=== PATIENT | female | born 1985 | race Caucasian/White ===

== ENCOUNTER → 2017-05-02 16:53 | Outpatient (CLI) | payer OTHER, SELFPAY ==
[2017-05-02 17:34] LABS: hCG Titer Quant., Serum < 1 mIU/mL (<9 non-preg)
== END ==
PROVIDERS: Family Provider Family Medicine; PCP Family Medicine; Visit Provider Family Medicine
DX: N91.2 Amenorrhea, unspecified (principal)
CPT/HCPCS: 36415; 84702

== ENCOUNTER → 2017-06-10 17:12 | Outpatient (CLI) | payer OTHER, SELFPAY ==
[2017-06-10 18:28] LABS: hCG Titer Quant., Serum < 1 mIU/mL (<9 non-preg)
[2017-06-10 18:32] LABS: Free T3 2.8 pg/mL (2.18-3.98); T4 Free Direct 0.72 ng/dL (0.76-1.46); Thyroid Stim Hormone (TSH) 1.93 uIU/mL (0.358-3.74)
[2017-06-12 15:12] LABS: Thyroglobulin Antibody < 1.0 IU/mL (0.0-0.9); Thyroid Peroxidase AB 16 IU/mL (0-34)
[2017-06-13 14:14] LABS: HPV APTIMA, High Risk Negative (Negative)
== END ==
PROVIDERS: Visit Provider Obstetrics & Gynecology
DX: Z01.419 Encounter for gynecological examination (general) (routine) without abnormal findings (principal); N92.6 Irregular menstruation, unspecified; R63.5 Abnormal weight gain
CPT/HCPCS: 84439; 84443; 84481; 84702; 86376; 86800; 88175; G0145

== ENCOUNTER → 2017-06-21 13:43 | Outpatient (CLI) | payer OTHER, SELFPAY ==
[2017-06-21 14:27] LABS: ALB/GLOB Ratio 1.2 RATIO (0.9-2.4); AST(SGOT) 28 U/L (15-37); Alanine Aminotransfer ALT/SGPT 49 U/L (13-56); Albumin, Serum 4.2 g/dL (3.2-5.0); Alkaline Phosphatase 70 U/L (45-117); Anion Gap 7 (5-15); BUN 13 mg/dL (7-18); BUN/Creat Ratio 13.7 RATIO (10-20); Calcium,Total 8.6 mg/dL (8.5-10.1); Chloride 105 mmol/L (98-107); Creatinine, Serum 0.95 mg/dL (0.55-1.02); EST Glomerular Filtration Rate 72 mL/min (>60); Est Glom Filt Rate - Afr Amer 87 mL/min (>60); Estradiol 23.6 pg/mL; Follicle Stimulating Hormone 6.3 mIU/mL; Globulin 3.5 g/dL (2.2-4.2); Glucose 85 mg/dL (74-106); Potassium 3.7 mmol/L (3.5-5.1); Prolactin 11.6 ng/mL; Protein, Total 7.7 g/dL (6.4-8.2); Sodium Level 139 mmol/L (136-145); T4 Free Direct 0.81 ng/dL (0.76-1.46); Thyroid Stim Hormone (TSH) 2.52 uIU/mL (0.358-3.74)
[2017-06-22 08:09] LABS: DHEA Sulfate 106.6 ug/dL (84.8-378.0)
[2017-06-22 08:39] LABS: Sex Hormone-binding Globulin 34.8 nmol/L (24.6-122.0)
[2017-06-23 09:51] LABS: Insulin 31.5 mU/L (2.6-37.6)
[2017-06-25 14:35] LABS: 17-Hydroxyprogesterone 40 ng/dL (.)
[2017-06-26 10:31] LABS: Cholesterol 188 mg/dL (200); High Density Lipoprotein 35 mg/dL; Triglycerides 255 mg/dL; Very Low Density Lipoprotein 51 mg/dL (5-40)
[2017-06-27 10:40] LABS: Vitamin D,25 Hydroxy 45.8 ng/mL (29.95-100.01)
== END ==
PROVIDERS: Family Provider Family Medicine; PCP Family Medicine; Visit Provider Obstetrics & Gynecology
DX: N92.6 Irregular menstruation, unspecified (principal)
CPT/HCPCS: 36415; 80053; 80061; 82306; 82533; 82627; 82670; 83001; 83498; 83525; 84146; 84270; 84403; 84439; 84443; 82626

== ENCOUNTER → 2017-07-03 09:55 | Outpatient (CLI) | payer OTHER, SELFPAY ==
[2017-07-03 11:06] LABS: Free T3 3.2 pg/mL (2.18-3.98)
--- NOTE | 2017-07-03 18:21 | US_ITS ---
US Transvaginal Non-OB INDICATION: IRREG MENSES ABN LABS COMPARISON: None TECHNIQUE: Ultrasonographic grayscale, Doppler and duplex investigation of the pelvic structures by transabdominal and transvaginal approach. Doppler waveform analysis. FINDINGS: The uterus is anteverted and measures 8.8 x 4.1 x 3.1 cm. Endometrial stripe is homogeneous and measures 5 mm. Small amount of fluid is seen in the cervix. Ovaries are normal in size and demonstrate normal follicular anatomy and normal flow. Largest cyst or dominant follicle in the left ovary measures 1.5 cm. There is no evidence of free fluid. US/Pelvic (Non ) IMPRESSION: Small amount of fluid in the cervix. Otherwise unremarkable pelvic ultrasound. at 1853 Reported and signed by: Lucila Vanegas MD Electronically Signed: Lucila Vanegas MD at 17:52 EDT Tel , Service support ,
--- NOTE | 2017-07-03 18:32 | US_ITS ---
US Transvaginal Non-OB INDICATION: IRREG MENSES ABN LABS COMPARISON: None TECHNIQUE: Ultrasonographic grayscale, Doppler and duplex investigation of the pelvic structures by transabdominal and transvaginal approach. Doppler waveform analysis. FINDINGS: The uterus is anteverted and measures 8.8 x 4.1 x 3.1 cm. Endometrial stripe is homogeneous and measures 5 mm. Small amount of fluid is seen in the cervix. Ovaries are normal in size and demonstrate normal follicular anatomy and normal flow. Largest cyst or dominant follicle in the left ovary measures 1.5 cm. There is no evidence of free fluid. US/Transvaginal Non- IMPRESSION: Small amount of fluid in the cervix. Otherwise unremarkable pelvic ultrasound. at 1853 Reported and signed by: Lucila Vanegas MD Electronically Signed: Lucila Vanegas MD at 17:52 EDT Tel , Service support ,
[2017-07-06 08:11] LABS: Androstenedione 242 ng/dL (41-262)
== END ==
PROVIDERS: Family Provider Family Medicine; PCP Family Medicine; Visit Provider Obstetrics & Gynecology
DX: R63.5 Abnormal weight gain (principal); N92.5 Other specified irregular menstruation; Z31.89 Encounter for other procreative management; R53.82 Chronic fatigue, unspecified
CPT/HCPCS: 36415; 82024; 82157; 84481

== ENCOUNTER → 2017-07-09 08:18 | Outpatient (CLI) | payer OTHER, SELFPAY ==
[2017-07-15 11:47] LABS: Insulin Like Growth Factor 148 ng/mL (73-243)
== END ==
PROVIDERS: Family Provider Family Medicine; PCP Family Medicine; Visit Provider Obstetrics & Gynecology
DX: Z31.89 Encounter for other procreative management (principal); N92.5 Other specified irregular menstruation; R63.5 Abnormal weight gain
CPT/HCPCS: 36415; 84144; 84305

== ENCOUNTER → 2017-08-15 11:26 | Outpatient (CLI) | payer OTHER, SELFPAY | PROVIDERS: Visit Provider Obstetrics & Gynecology | DX: Z13.89 Encounter for screening for other disorder (principal); N92.5 Other specified irregular menstruation; R63.5 Abnormal weight gain | CPT/HCPCS: 36415; 84144 ==

== ENCOUNTER → 2017-08-18 13:22 | Outpatient (CLI) | payer OTHER, SELFPAY ==
[2017-08-18 13:53] LABS: hCG Titer Quant., Serum < 1 mIU/mL (<9 non-preg)
== END ==
PROVIDERS: Family Provider Family Medicine; PCP Family Medicine; Visit Provider Family Medicine
DX: N91.2 Amenorrhea, unspecified (principal)
CPT/HCPCS: 84702

== ENCOUNTER → 2017-08-22 08:18 | Outpatient (CLI) | payer OTHER, SELFPAY ==
[2017-08-22 08:51] LABS: hCG Titer Quant., Serum 10 mIU/mL (<9 non-preg)
== END ==
PROVIDERS: Family Provider Family Medicine; PCP Family Medicine; Visit Provider Family Medicine
DX: O26.91 Pregnancy related conditions, unspecified, first trimester (principal); Z3A.00 Weeks of gestation of pregnancy not specified
CPT/HCPCS: 84702

== ENCOUNTER → 2017-08-24 09:52 | Outpatient (CLI) | payer OTHER, SELFPAY ==
[2017-08-24 10:30] LABS: hCG Titer Quant., Serum 38 mIU/mL (<9 non-preg)
== END ==
PROVIDERS: Family Provider Family Medicine; PCP Family Medicine; Visit Provider Family Medicine
DX: O26.91 Pregnancy related conditions, unspecified, first trimester (principal); Z3A.00 Weeks of gestation of pregnancy not specified
CPT/HCPCS: 36415; 84702

== ENCOUNTER → 2017-09-09 16:50 | Outpatient (CLI) | payer OTHER, SELFPAY ==
[2017-09-10 14:30] LABS: Chlamydia Trachomatis by PCR Negative (Negative); Neisserai gonorrhoeae by PCR Negative (Negative); Probe Check PASS; Sample Adequacy Control PASS; Specimen Processing Control PASS
== END ==
PROVIDERS: Visit Provider Obstetrics & Gynecology
DX: Z11.3 Encounter for screening for infections with a predominantly sexual mode of transmission (principal); Z32.01 Encounter for pregnancy test, result positive
CPT/HCPCS: 87491; 87591

== ENCOUNTER → 2017-09-10 07:53 | Outpatient (CLI) | payer OTHER, SELFPAY ==
[2017-09-10 08:33] LABS: Absolute Lymphocyte Count 2.31 X10^3/ul (0.83-4.51); Absolute Neutrophil Count 5.6 X10^3/uL (2.0-7.7); Basophil# 0.02 X10^3/uL; Basophil% 0.2 % (0-1); Eosinophil# 0.12 X10^3/uL; Eosinophils% 1.4 % (0-5); Hematocrit 38.7 % (37-47); Hemoglobin 13.4 g/dl (12.0-15.0); Lymphocyte # 2.31 X10^3/ul (4.0); Lymphocyte % 26.9 % (19-41); Mean Corp Hgb Conc 34.6 g/gl (32-36); Mean Corpuscular Hgb 29.6 pg (27.0-32.0); Mean Corpuscular Volume 85.6 fL (81-99); Mean Platelet Vol. 10.4 fl (6.2-12.0); Monocyte# 0.54 X10^3/uL; Monocyte% 6.3 % (0-10); Neutrophil % 65.1 % (47-70); Platelet Count 230 K/mm3 (150-450); RBC Distribution Width CV 12.2 % (11.6-14.6); RBC Distribution Width SD 37.5 fl (35.1-43.9); Red Blood Count 4.52 M/mm3 (4.2-5.4); White Blood Count 8.6 K/mm3 (4.4-11.0)
[2017-09-10 08:34] LABS: POSITIVE COUNT NO; POSITIVE DIFFERENTIAL NO
[2017-09-10 08:35] LABS: POSITIVE MORPHOLOGY NO
[2017-09-10 08:51] LABS: Free T3 3.2 pg/mL (2.18-3.98); Glucose 97 mg/dL (74-106); T4 Free Direct 0.89 ng/dL (0.76-1.46)
[2017-09-10 09:54] LABS: Color, Urine Yellow (Yellow); Glucose, Dipstick Normal (Normal); Ketone-Dipstick Negative (Negative); Leukocyte Esterase-Dipstick 25 /ul (Negative); Nitrite-Dipstick Negative (Negative); Occult Blood-Urine Negative /ul (Negative); Protein-Dipstick Negative (Negative); Urine Bilirubin Dipstick Negative (Negative); Urine Clarity Sl. Cloudy (Clear); Urine Urobilinogen Normal (Normal); Urine pH 6.5 (5.0 - 8.0)
[2017-09-10 10:40] LABS: HIV - WCH Non-Reactive (Nonreactive); Rubella IgG 73.7 IU/mL
[2017-09-10 10:51] LABS: Amphetamine Urine VISTA NEGATIVE (<1000 ng/mL); Barbiturate Urine VISTA NEGATIVE (< 200 ng/mL); Benzodiazepine Urine VISTA NEGATIVE (< 200 ng/mL); Cocaine Urine VISTA NEGATIVE (< 300 ng/mL); Ecstacy Urine VISTA NEGATIVE (< 500 ng/mL); Methadone Urine VISTA NEGATIVE (< 300 ng/mL); PCP Urine VISTA NEGATIVE (< 25 ng/mL); THC Urine VISTA NEGATIVE (< 50 ng/mL); Vista UDS pH Range 7
[2017-09-12 03:47] LABS: Prenatal RPR NONREACTIVE (NONREACTIVE)
[2017-09-12 07:11] LABS: HEPATITIS B SURFACE AG Negative (Negative); Hep C Antibodies <0.1 s/co ratio (0.0-0.9)
== END ==
PROVIDERS: Family Provider Family Medicine; PCP Family Medicine; Visit Provider Obstetrics & Gynecology
DX: O99.280 Endocrine, nutritional and metabolic diseases complicating pregnancy, unspecified trimester (principal); E03.9 Hypothyroidism, unspecified; Z3A.00 Weeks of gestation of pregnancy not specified
CPT/HCPCS: 36415; 80307; 81002; 82947; 84439; 84443; 84481; 85025; 86703; 86762; 86803; 87340

== ENCOUNTER → 2017-09-13 12:01 | Outpatient (CLI) | payer OTHER, SELFPAY ==
--- NOTE | 2017-09-13 13:32 | US_ITS ---
STUDY: FIRST TRIMESTER OBSTETRICAL ULTRASOUND REASON FOR EXAM: Female, 31 years old. Determination of dates and viability LMP: 07/26/2017 TECHNIQUE: Transabdominal and transvaginal probes were used PRIOR ULTRASOUND: None. FINDINGS: The study shows a gravid uterus measuring 8.8 x 6.6 x 4.9 cm. It contains a gestational sac with good decidual reaction around it. Within the sac is a developing embryo with a heart rate of 12 6 bpm and a crown-rump length of 7.3 mm compatible with 6 weeks 5 days +/- 5 days gestational age and an expected date of delivery of 05/05/2018. Both ovaries are visualized and demonstrate normal Doppler flows through them. The right ovary measures 2.9 x 2.2 x 1.8 cm and the left 5.3 x 3.4 x 3.7 cm. There is a 3.1 cm corpus luteal cyst in the left. There is no free fluid in the cul-de-sac. .. US/Init OB < 14Wks US IMPRESSION: An early intrauterine at 6 weeks 5 days +/- 5 days with an estimated date delivery of 05/05/2018 Electronically Signed: Domenico Pacheco, at 10:51 EDT Tel , Service support ,
== END ==
PROVIDERS: Family Provider Family Medicine; PCP Family Medicine; Visit Provider Obstetrics & Gynecology
DX: Z34.81 Encounter for supervision of other normal pregnancy, first trimester (principal)
CPT/HCPCS: 76801

== ENCOUNTER 2017-09-27 13:36 | Emergency (ER) | payer OTHER, SELFPAY ==
[2017-09-27 13:37] VITALS: BP 148/84; PULSE 92; RESP 16; TEMP 36.3; O2SAT 97; BMI 35.5
[2017-09-27] MEDS: 0.9% Normal Saline 1,000 ML 1000 ML IV (15:18)
[2017-09-27] MEDS: Ondansetron 4 MG/2 ML Vial IV (15:18)
[2017-09-27 16:01] VITALS: BP 132/60
--- NOTE | 2017-09-27 16:15 | ED.VISSUMM ---
- ER Visit Summary Date of Service: 09/27/17 Chief Complaint: Nausea vomiting History of Present Illness: The patient is a 31 F who states that she is 9 weeks () and has been having morning sickness this . She states that yesterday and today she just does not feel right she feels that there is been more vomiting particular today. She notes no change in her chronic diarrhea. No fevers. Physical Examination: Afebrile vital signs are stable noted blood pressure 148/84 in triage this is come down in the department Gen: Well-nourished well-developed Head: Normocephalic atraumatic Eyes: Perrl EOMI ENT: TMs clear no rhinorrhea moist mucous membranes Neck: Supple no lymphadenopathy no JVD nontender CVS: Regular rate rhythm no murmurs normal S1-S2 Respiratory: No distress clear to auscultation bilaterally chest nontender Abdomen: Soft nontender nondistended normal bowel sounds no masses Back: Nontender Extremity: Nontender no edema Skin: Normal color no rash Neuro: alert orientated ?3 CN II-XII intact normal strength sensation reflexes gait cerebellar Psych: Normal affect normal mood Test Results: Urinalysis was obtained. Emergency Department Course and Treatment: Patient received IV fluids and Zofran. heart tones were 158. Patient is tolerating p.o. 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 Impression: 1. Vomiting 2. First trimester This note was generated with [employer] dictation software. It may contain incorrect words, spelling, and punctuation that were not noted in review of the chart prior to signing ED Disposition - Plan for ED Patient: Disposition: Home or Assisted Living Chief Complaint: Nausea/Vomiting Instructions: ED Preg Morning Sickness Prescriptions: Ondansetron [Zofran Odt] 4 mg PO Q8H PRN PRN #14 tab PRN Reason: Nausea Referrals: Tanesha Yanes MD [STAFF PHYSICIAN] - Keep Alessandro appointment Additional Instructions: Your blood pressure today was 132/60 (a manual reading) please follow-up with your DIRECTOR SOCIAL.
--- NOTE | 2017-09-27 16:18 | ED.DCSUM_ITS ---
- ER Visit Summary Date of Service: 09/27/17 Chief Complaint: Nausea vomiting History of Present Illness: The patient is a 31 F who states that she is 9 weeks () and has been having morning sickness this . She states that yesterday and today she just does not feel right she feels that there is been more vomiting particular today. She notes no change in her chronic diarrhea. No fevers. Physical Examination: Afebrile vital signs are stable noted blood pressure 148/ 84 in triage this is come down in the department Gen: Well-nourished well-developed Head: Normocephalic atraumatic Eyes: Perrl EOMI ENT: TMs clear no rhinorrhea moist mucous membranes Neck: Supple no lymphadenopathy no JVD nontender CVS: Regular rate rhythm no murmurs normal S1-S2 Respiratory: No distress clear to auscultation bilaterally chest nontender Abdomen: Soft nontender nondistended normal bowel sounds no masses Back: Nontender Extremity: Nontender no edema Skin: Normal color no rash Neuro: alert orientated ?3 CN II-XII intact normal strength sensation reflexes gait cerebellar Psych: Normal affect normal mood Test Results: Urinalysis was obtained. Emergency Department Course and Treatment: Patient received IV fluids and Zofran. heart tones were 158. Patient is tolerating p.o. 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 Impression: 1. Vomiting 2. First trimester This note was generated with [employer] dictation software. It may contain incorrect words, spelling, and punctuation that were not noted in review of the chart prior to signing ED Disposition - Plan for ED Patient: Disposition: Home or Assisted Living Chief Complaint: Nausea/Vomiting Instructions: ED Preg Morning Sickness Prescriptions: Ondansetron [Zofran Odt] 4 mg PO Q8H PRN PRN #14 tab PRN Reason: Nausea Referrals: Tanesha Yanes MD [STAFF PHYSICIAN] - Keep Alessandro appointment Additional Instructions: Your blood pressure today was 132/60 (a manual reading) please follow-up with your OPERATIVE SUPERVISOR.
[2017-09-27 16:55] LABS: Red Blood Cells-Urine 0 SEEN /hpf (0-5)
[2017-09-27 16:58] LABS: Color, Urine Yellow (Yellow); Glucose, Dipstick Normal (Normal); Leukocyte Esterase-Dipstick Negative /ul (Negative); Nitrite-Dipstick Negative (Negative); Occult Blood-Urine Negative /ul (Negative); Protein-Dipstick Negative (Negative); Urine Bilirubin Dipstick Negative (Negative); Urine Clarity Cloudy (Clear); Urine Urobilinogen Normal (Normal)
[2017-09-27 17:04] LABS: Ketone-Dipstick 150 mg/dl (Negative)
[2017-09-27 17:07] LABS: Squamous Epithelial Cells - UA 0-5 SEEN /hpf (5-10)
[2017-09-27 17:08] LABS: Mucous, Urine RARE /hpf (<or=2+)
[2017-09-27 17:09] LABS: Bacteria 1+ /hpf (None Seen); White Blood Cells 0-5 SEEN /hpf (0-5)
[2017-09-27 17:35] VITALS: BP 129/75; PULSE 74; RESP 16; O2SAT 98
== END 2017-09-27 17:38 | disposition home or self-care (01) ==
PROVIDERS: Emergency Provider Emergency Medicine; Family Provider Family Medicine; PCP Family Medicine
DX: O21.9 Vomiting of pregnancy, unspecified (principal); O24.311 Unspecified pre-existing diabetes mellitus in pregnancy, first trimester; E11.9 Type 2 diabetes mellitus without complications; Z79.84 Long term (current) use of oral hypoglycemic drugs; O99.611 Diseases of the digestive system complicating pregnancy, first trimester; K21.9 Gastro-esophageal reflux disease without esophagitis; O99.281 Endocrine, nutritional and metabolic diseases complicating pregnancy, first trimester; E03.9 Hypothyroidism, unspecified; Z3A.09 9 weeks gestation of pregnancy
CPT/HCPCS: 81001; 96361; 96374; 99283; J7030; J2405

== ENCOUNTER → 2017-10-15 14:06 | Outpatient (CLI) | payer OTHER, SELFPAY ==
--- NOTE | 2017-10-15 14:09 | US_ITS ---
STUDY: FIRST TRIMESTER OBSTETRICAL ULTRASOUND REASON FOR EXAM: Female, 31 years old. Viability LMP: 07/26/2017 TECHNIQUE: Transvaginal PRIOR ULTRASOUND: 09/13/2017 FINDINGS: There is visualization of a single gestational sac in a normal intrauterine position. The gestational sac shape is within normal limits. There is a small 1.3 x 1.4 x 1.2 cm subchorionic hemorrhage. There is a visualized yolk sac. The yolk sac measures 0.5. The placenta is non-visualized. There is visualization of a live embryo. The crown-rump length (CRL) measures 4.5 cm, indicating an estimated gestational age (EGA) of 11 weeks, 3 days. There is demonstrated cardiac activity with a heart rate of 154 bpm. The estimated gestation age (EGA) by LMP is 11 weeks, 4 days. The estimated date of delivery (LUIS FERNANDO) by LMP is 05/02/2018. The estimated gestation age (EGA) by US is 11 weeks, 3 days. The estimated date of delivery (LUIS FERNANDO) by US is 05/20/2018. The uterus measures 11.5 x 8 x 5 x 6.5 cm. There is no demonstrated uterine fibroid. The cervix is closed. The right ovary measures 3.5 x 2.5 x 2 cm. There is no right ovarian cyst. There is no visualized right adnexal mass or complex lesion. The left ovary measures 4.5 x 3 x 3 cm. There is a 2.5 cm left ovarian cyst. There is no visualized left adnexal mass or complex lesion. There is no fluid in the cul de sac. US/OB Limited With Biometrics IMPRESSION: Single live intrauterine 11 week 3 day gestation with an LUIS FERNANDO of 05/03/2018. Small subchorionic hemorrhage. Post internal cervical os. Small left ovarian cyst. No adnexal masses, large pelvic fluid or ovarian torsion. Electronically Signed: Lazara Correia MD at 7:37 EDT , Service support ,
== END ==
PROVIDERS: Family Provider Family Medicine; PCP Family Medicine; Visit Provider Obstetrics & Gynecology
DX: Z34.81 Encounter for supervision of other normal pregnancy, first trimester (principal)
CPT/HCPCS: 76816

== ENCOUNTER → 2017-10-17 12:58 | Outpatient (CLI) | payer OTHER, SELFPAY ==
[2017-10-17 13:47] LABS: Free T3 2.9 pg/mL (2.18-3.98); Thyroid Stim Hormone (TSH) 0.79 uIU/mL (0.358-3.74)
[2017-10-18 11:20] LABS: T4 Free Direct 0.86 ng/dL (0.76-1.46)
== END ==
PROVIDERS: Family Provider Family Medicine; PCP Family Medicine; Visit Provider Obstetrics & Gynecology
DX: O99.281 Endocrine, nutritional and metabolic diseases complicating pregnancy, first trimester (principal); E03.9 Hypothyroidism, unspecified; Z3A.00 Weeks of gestation of pregnancy not specified
CPT/HCPCS: 36415; 84436; 84439; 84443; 84481

== ENCOUNTER → 2017-11-02 09:23 | Outpatient (CLI) | payer OTHER, SELFPAY ==
[2017-11-02 09:44] LABS: 24 Hour Urine Protein 128.2 mg/24HR (<150 MG/24HR); 24HR. UA Prot. Total Volume 2250 mL; 24HR. Urine Creatinine 1.68 g/24 HR (0.70-1.90); Urine Protein (24 Hour) < 6.0 mg/dL (<11.9)
== END ==
PROVIDERS: Family Provider Family Medicine; PCP Family Medicine; Visit Provider Obstetrics & Gynecology
DX: Z34.82 Encounter for supervision of other normal pregnancy, second trimester (principal)
CPT/HCPCS: 81050; 82570; 84156

== ENCOUNTER → 2018-01-01 17:24 | Outpatient (CLI) | payer OTHER, SELFPAY | PROVIDERS: Family Provider Family Medicine; PCP Family Medicine; Referring Provider Obstetrics & Gynecology; Visit Provider Obstetrics & Gynecology | DX: O26.899 Other specified pregnancy related conditions, unspecified trimester (principal); Z3A.00 Weeks of gestation of pregnancy not specified; R00.2 Palpitations | CPT/HCPCS: 93225; 93226 ==

== ENCOUNTER 2018-01-07 13:34 | Emergency (ER) | payer OTHER, SELFPAY ==
[2018-01-07 13:35] VITALS: BP 154/87; PULSE 115; RESP 14; TEMP 36.8; O2SAT 98; BMI 37.0
[2018-01-07 14:49] VITALS: BP 132/77; PULSE 106; RESP 14; O2SAT 98
--- NOTE | 2018-01-07 15:45 | EKG12_ITS ---
Test Reason : PALPITATIONS Blood Pressure : / mmHG Vent. Rate : 099 BPM Atrial Rate : 099 BPM P-R Int : 140 ms QRS Dur : 086 ms QT Int : 330 ms P-R-T Axes : 022 -01 001 degrees QTc Int : 423 ms Normal sinus rhythm Normal ECG Confirmed by LORENA ALTAMIRANO, ALMA ([id number]), graphics editor NELLY KAUR ([id number]) on 01/12/2018 3:56:07 PM Referred By: Tanesha Yanes Confirmed By:ALMA CARRILLO MD
--- NOTE | 2018-01-07 15:50 | ED.VISSUMM ---
- ER Visit Summary Date of Service: 01/07/18 Chief Complaint: [Tachycardia and hypertension] History of Present Illness: The patient is a 32 F [presents to the emergency department with complaint of racing heart and high blood pressure. Patient states she was at work sitting at rest when she started feeling like her heart was racing and she checked her watch which tracks her heart rate and it was 113. Patient also noticed that her blood pressure was 132/82 at the time. Patient felt a little bit short of breath. Patient felt somewhat presyncopal. She did not pass out. Patient states that she has had for the last week some episodes of tachycardia and actually wore a Holter monitor last week for 24 hours but does not have results. Patient is currently 23 weeks and she is . She denies any abdominal pain. She is feeling the baby moving. Patient denies any headache currently although she had a mild headache earlier. She denies any swelling out of the ordinary. She denies any visual changes. Patient denies any fever or recent illness otherwise. She denies dysuria, urgency, or frequency. Patient denies any chest pain.] Physical Examination: [HEENT-PERRLA, EOMI. Cranial nerves II through XII grossly intact. TMs clear. Mucous membranes moist. No adenopathy. Cardiovascular-regular rate and rhythm without murmur or ectopy Lungs-clear to auscultation, chest wall stable without crepitus or subcu emphysema Abdomen-normoactive bowel sounds, soft, nontender, no rebound or rigidity, no peritoneal signs. Extremities-intact ?4, normal range of motion, normal pulses, atraumatic] Test Results: [EKG obtained on arrival showed a sinus rhythm with a ventricular rate of 99 bpm with no acute I segment changes. CBC with differential showed a white count 10.3, hemoglobin 12.1, hematocrit 34, platelets 180. Chemistries unremarkable. Troponin was less than 0.015. LFTs were normal. Urinalysis was normal. There is no protein in the urine. D-dimer was less than 0.27. TSH was normal at 1.48. heart tones were 150.] Emergency Department Course and Treatment: [While in the department patient's blood pressure returned to normal and is currently 127/83. I did discuss case with Dr. Landrum who was covering for Dr. Cara Johnson. I was asked to have the patient follow-up with our office next week.] Patient feels like maybe her symptoms are due to anxiety as she does have a history of this and her medication dosage has been decreased since she is . Patient states she has had this happen in the past with medication changes. Treatment Plan: [Follow-up with CONSTRUCTION SALES REPRESENTATIVE next week.] Disposition: [Discharged home in stable condition] Impression: [Palpitations] Anxiety This note was generated with [employer] dictation software. It may contain incorrect words, spelling, and punctuation that were not noted in review of the chart prior to signing ED Disposition - Plan for ED Patient: Chief Complaint: Palpitations Referrals: Librado Ybarra DO [Primary Care Provider] -
[2018-01-07] MEDS: 0.9% Normal Saline 1,000 ML 1000 ML IV (15:58)
[2018-01-07 16:05] VITALS: BP 127/83; PULSE 77; RESP 14; O2SAT 99
[2018-01-07 16:05] LABS: Absolute Lymphocyte Count 2.19 X10^3/ul (0.83-4.51); Absolute Neutrophil Count 7.3 X10^3/uL (2.0-7.7); Basophil# 0.02 X10^3/uL; Basophil% 0.2 % (0-1); Eosinophil# 0.14 X10^3/uL; Eosinophils% 1.4 % (0-5); Hematocrit 33.9 % (37-47); Hemoglobin 12.1 g/dl (12.0-15.0); Lymphocyte # 2.19 X10^3/ul (4.0); Lymphocyte % 21.2 % (19-41); Mean Corp Hgb Conc 35.7 g/gl (32-36); Mean Corpuscular Hgb 30.3 pg (27.0-32.0); Mean Platelet Vol. 10.4 fl (6.2-12.0); Monocyte# 0.63 X10^3/uL; Monocyte% 6.1 % (0-10); Neutrophil # 7.28 X10^3/uL (2.7-7.7); Neutrophil % 70.6 % (47-70); POSITIVE COUNT NO; POSITIVE DIFFERENTIAL NO; POSITIVE MORPHOLOGY NO; Platelet Count 180 K/mm3 (150-450); RBC Distribution Width CV 12.9 % (11.6-14.6); RBC Distribution Width SD 38.8 fl (35.1-43.9); Red Blood Count 3.99 M/mm3 (4.2-5.4); White Blood Count 10.3 K/mm3 (4.4-11.0)
[2018-01-07 16:16] LABS: Mucous, Urine 0 SEEN /hpf (<or=2+)
[2018-01-07 16:18] LABS: Color, Urine Yellow (Yellow); Glucose, Dipstick Normal (Normal); Ketone-Dipstick Negative (Negative); Leukocyte Esterase-Dipstick 25 /ul (Negative); Nitrite-Dipstick Negative (Negative); Occult Blood-Urine Negative /ul (Negative); Protein-Dipstick Negative (Negative); Urine Bilirubin Dipstick Negative (Negative); Urine Clarity Cloudy (Clear); Urine Urobilinogen Normal (Normal)
[2018-01-07 16:20] LABS: D-Dimer Quantitative (DVT/PE) < 0.27 FEU/ug/m (0.27-0.49)
[2018-01-07 16:25] LABS: Bacteria 1+ /hpf (None Seen); Red Blood Cells-Urine 0-5 SEEN /hpf (0-5); Squamous Epithelial Cells - UA 0-5 SEEN /hpf (5-10); White Blood Cells 0-5 SEEN /hpf (0-5)
[2018-01-07 16:31] LABS: ALB/GLOB Ratio 0.9 RATIO (0.9-2.4); AST(SGOT) 14 U/L (15-37); Alanine Aminotransfer ALT/SGPT 26 U/L (13-56); Albumin, Serum 3.4 g/dL (3.2-5.0); Alkaline Phosphatase 69 U/L (45-117); Anion Gap 6 (5-15); BUN 5 mg/dL (7-18); BUN/Creat Ratio 12.5 RATIO (10-20); Calcium,Total 8.8 mg/dL (8.5-10.1); Chloride 106 mmol/L (98-107); EST Glomerular Filtration Rate 194 mL/min (>60); Est Glom Filt Rate - Afr Amer 234 mL/min (>60); Estimated Creatinine Clearance 171.13 ml/min; Globulin 3.7 g/dL (2.2-4.2); Glucose 81 mg/dL (74-106); Potassium 3.6 mmol/L (3.5-5.1); Protein, Total 7.1 g/dL (6.4-8.2); Sodium Level 136 mmol/L (136-145); Thyroid Stim Hormone (TSH) 1.48 uIU/mL (0.358-3.74)
--- NOTE | 2018-01-07 16:55 | ED.DEP ---
ED Disposition - Plan for ED Patient: Chief Complaint: Palpitations Instructions: ED Palpitations, ED Stress React Referrals: Librado Ybarra DO [Primary Care Provider] - Tanesha Yanes MD [STAFF PHYSICIAN] - 5-7 Days
[2018-01-07 17:08] VITALS: BP 122/81; PULSE 78; RESP 12; O2SAT 99
== END 2018-01-07 17:09 | disposition home or self-care (01) ==
LOC: ED 15:47
PROVIDERS: Emergency Provider Emergency Medicine; Family Provider Family Medicine; PCP Family Medicine
DX: O99.89 Other specified diseases and conditions complicating pregnancy, childbirth and the puerperium (principal); R00.2 Palpitations; O99.342 Other mental disorders complicating pregnancy, second trimester; F41.9 Anxiety disorder, unspecified; F32.9 Major depressive disorder, single episode, unspecified; O99.612 Diseases of the digestive system complicating pregnancy, second trimester; K21.9 Gastro-esophageal reflux disease without esophagitis; O99.282 Endocrine, nutritional and metabolic diseases complicating pregnancy, second trimester; E03.9 Hypothyroidism, unspecified; Z3A.23 23 weeks gestation of pregnancy
CPT/HCPCS: 80053; 81001; 84443; 84484; 85025; 85379; 93005; 96360; 99284; J7030

== ENCOUNTER → 2018-02-10 08:17 | Outpatient (CLI) | payer OTHER, SELFPAY ==
[2018-02-10 09:17] LABS: Hematocrit 35.4 % (37-47); Hemoglobin 11.7 g/dl (12.0-15.0); Mean Corp Hgb Conc 33.1 g/gl (32-36); Mean Corpuscular Hgb 28.7 pg (27.0-32.0); Mean Corpuscular Volume 86.8 fL (81-99); Mean Platelet Vol. 10.7 fl (6.2-12.0); Platelet Count 179 K/mm3 (150-450); RBC Distribution Width CV 13.6 % (11.6-14.6); RBC Distribution Width SD 43.2 fl (35.1-43.9); Red Blood Count 4.08 M/mm3 (4.2-5.4); White Blood Count 9.1 K/mm3 (4.4-11.0)
[2018-02-10 09:18] LABS: Scan Indicated on CBC? Y/N NO
[2018-02-10 09:32] LABS: Glucose Challenge Gest 1H 50g 155 mg/dL (70-140)
== END ==
PROVIDERS: Visit Provider Obstetrics & Gynecology
DX: Z34.83 Encounter for supervision of other normal pregnancy, third trimester (principal)
CPT/HCPCS: 36415; 82950; 85027

== ENCOUNTER → 2018-02-13 06:53 | Outpatient (CLI) | payer OTHER, SELFPAY ==
[2018-02-13 08:51] LABS: Glucose GTT-Gestation. Fasting 88 mg/dL (<105)
[2018-02-13 08:54] LABS: Glucose GTT-Gestational 1 Hr 162 mg/dL (<190)
[2018-02-13 10:16] LABS: Glucose GTT-Gestational 2 Hr 136 mg/dL (<165)
[2018-02-13 11:02] LABS: Glucose GTT-Gestational 3 Hr 122 L (<145)
== END ==
PROVIDERS: Family Provider Family Medicine; PCP Family Medicine; Referring Provider Obstetrics & Gynecology; Visit Provider Obstetrics & Gynecology
DX: O24.913 Unspecified diabetes mellitus in pregnancy, third trimester (principal); Z3A.00 Weeks of gestation of pregnancy not specified
CPT/HCPCS: 36415; 82951; 82952

== ENCOUNTER → 2018-02-27 10:21 | Outpatient (CLI) | payer OTHER, SELFPAY ==
--- OUTSIDE RECORDS SUMMARY | 2018-04-24 05:51 | XMS RPT_ITS ---
:1985 Author Organization OHIP Support Name Relationship Address Phone DESHAUN ONEILL Unavailable [address] + [place] [address] WC Unavailable [address] + [place] [address] WIRT, JANE Unavailable [address] + [place] [address] DESHAUN ONEILL Unavailable [address] + [place] [address] [facility] Unavailable [address] + [place] [address] WIRT, JANE Unavailable [address] + [place] [address] DESHAUN ONEILL Unavailable [address] + [place] [address] [facility] Unavailable [address] + [place] [address] WIRT, JANE Unavailable [address] + [place] [address] DESHAUN ONEILL Unavailable [address] + [place] [address] [facility] Unavailable [address] + [place] [address] WIRT, JANE Unavailable [address] + [place] [address] DESHAUN ONEILL Unavailable [address] + [place] [address] [facility] Unavailable [address] + [place] [address] WIRT, JANE Unavailable [address] + [place] [address] DESHAUN ONEILL Unavailable [address] + [place] [address] [facility] Unavailable [address] + [place] [address] WIRT, JANE Unavailable [address] + [place] [address] KIDESHAUN LARKIN Unavailable [address] + [place] [address] [facility] Unavailable [address] + [place] [address] WIRT, JANE Unavailable [address] + [place] [address] DESHAUN ONEILL Unavailable [address] + [place] [address] [facility] Unavailable [address] + [place] [address] WIRT, JANE Unavailable [address] + [place] [address] DESHAUN ONEILL Unavailable [address] + [place] [address] [facility] Unavailable [address] + [place] [address] WIRT, JANE Unavailable [address] + [place] [address] DESHAUN ONEILL Unavailable [address] + [place] [address] [facility] Unavailable [address] + [place] [address] WIRT, JANE Unavailable [address] + [place] [address] DESHAUN ONEILL Unavailable [address] + [place] [address] [facility] Unavailable [address] + [place] [address] WIRT, JANE Unavailable [address] + [place] [address] DESHAUN ONEILL Unavailable [address] + [place] [address] [facility] Unavailable [address] + [place] [address] WIRT, JANE Unavailable Unavailable + DESHAUN ONEILL Unavailable [address] + [place] [address] [facility] Unavailable [address] + [place] [address] WIRT, JANE Unavailable Unavailable + DESHAUN ONEILL Unavailable [address] + [place] [address] [facility] Unavailable [address] + [place] [address] WIRT, JANE Unavailable Unavailable + DESHAUN ONEILL Unavailable [address] + [place] [address] [facility] Unavailable [address] + [place] [address] WIRT, JANE Unavailable Unavailable + DESHAUN ONEILL Unavailable [address] + [place] [address] [facility] Unavailable [address] + [place] [address] WIRT, JANE Unavailable Unavailable + DESHAUN ONEILL Unavailable [address] + [place] [address] [facility] Unavailable [address] + [place] [address] DESHAUN ONEILL Unavailable [address] + [place] [address] [facility] Unavailable [address] + [place] [address] DESHAUN ONEILL Unavailable [address] + [place] [address] [facility] Unavailable [address] + [place] [address] DESHAUN ONEILL Unavailable [address] + [place] [address] [facility] Unavailable [address] + [place] [address] DESHAUN ONEILL Unavailable [address] + [place] [address] [facility] Unavailable [address] + [place] [address] DESHAUN ONEILL Unavailable [address] + [place] [address] [facility] Unavailable [address] + [place] [address] DESHAUN ONEILL Unavailable [address] + [place] [address] [facility] Unavailable [address] + [place] [address] DESHAUN ONEILL Unavailable [address] + [place] [address] [facility] Unavailable [address] + [place] [address] DESHAUN ONEILL Unavailable [address] + [place] [address] [facility] Unavailable [address] + [place] [address] DESHAUN ONEILL Unavailable [address] + [place] [address] Care Team Providers Name Role Phone Tanesha Yanes Attending Unavailable Librado Ybarra Attending Unavailable Tate, Librado Primary Care Unavailable Tate, Librado Primary Care Unavailable Neo Alcantara Attending Unavailable Arnold-Tanesha Johnson Referring Unavailable Arnold-Alex, Tanesha Attending Unavailable Tate, Librado Primary Care Unavailable Arnold-Alex, Tanesha Attending Unavailable ASSESSMENT, HEALTH RISK Attending Unavailable Tate, Librado Primary Care Unavailable Arnold-Alex, Tanesha Attending Unavailable Tate, Librado Primary Care Unavailable Librado Ybarra Attending Unavailable Tate, Librado Primary Care Unavailable Barrett-Alex, Tanesha Attending Unavailable Tate, Librado Primary Care Unavailable Allie Canseco Attending Unavailable Rhianna Molina Attending Unavailable Rhianna Molina Referring Unavailable Tate, Librado Primary Care Unavailable Arnold-Alex, Tanesha Attending Unavailable Tate, Librado Primary Care Unavailable Arnold-Alex, Tanesha Attending Unavailable Arnold-Alex, Summer Referring Unavailable Tate, Librado Primary Care Unavailable Librado Ybarra Attending Unavailable Tate, Librado Primary Care Unavailable Arnold-Alex, Tanesha Attending Unavailable Arnold-Alex, Tanesha Attending Unavailable Tate, Librado Primary Care Unavailable Barrett-Alex, Summer Attending Unavailable Tate, Librado Primary Care Unavailable Barrett-Aelx, Summer Attending Unavailable Barrett-Alex, Summer Referring Unavailable Tate, Librado Primary Care Unavailable Barrett-Alex, Summer Attending Unavailable Vahe Antoine Attending Unavailable Barrett-Alex, Summer Referring Unavailable Tate, Librado Primary Care Unavailable Ungur, Remus Attending Unavailable Barrett-Alex, Summer Attending Unavailable Barrett-Alex, Summer Referring Unavailable Tate, Librado Primary Care Unavailable Barrett-Alex, Summer Attending Unavailable Tate, Librado Primary Care Unavailable Tate, Librado Attending Unavailable Tate, Librado Primary Care Unavailable Barrett-Alex, Summer Attending Unavailable Lambert Richardson Attending Unavailable Tate, Librado Primary Care Unavailable PROBLEMS PROBLEMS DATE TYPE CONDITION / CODE ATTENDING STATUS SOURCE 02/27/2018 Unknown N39.0 - Urinary Barrett-Alex, Active [place] tract infection, [facility] site not specified Hospital / N39.0(ICD-10) Repository 02/27/2018 Unknown R39.15 - Urgency of Barrett-Alex, Active [place] urination / [facility] R39.15(ICD-10) Hospital Repository 02/13/2018 Unknown Z34.83 - Encounter Barrett-Alex, Active [place] for supervision of [facility] other normal Hospital , third Repository trimester / Z34.83(ICD-10) 02/13/2018 Unknown O24.913 - Barrett-Alex, Active [place] Unspecified [facility] diabetes mellitus Hospital in , third Repository trimester / O24.913(ICD-10) 01/23/2018 Unknown R00.2 - Reynaldo Antoineril Active [place] Palpitations / Community R00.2(ICD-10) Hospital Repository 10/17/2017 Unknown E03.9 - Barrett-Alex, Active [place] Hypothyroidism, [facility] unspecified / Hospital E03.9(ICD-10) Repository 10/17/2017 Unknown Z34.81 - Encounter Barrett-Alex, Active [place] for supervision of [facility] other normal Hospital , first Repository trimester / Z34.81(ICD-10) 09/10/2017 Unknown Z11.3 - Encounter Barrett-Alex, Active [place] for screening for [facility] infections with a Hospital predominantly Repository sexual mode of transmission / Z11.3(ICD-10) 09/10/2017 Unknown Z32.01 - Encounter Farzana Active [place] for test, [facility] result positive / Hospital Z32.01(ICD-10) Repository 08/24/2017 Unknown O26.91 - Librado Ybarra Active [place] related conditions, Community unspecified, first Hospital trimester / Repository O26.91(ICD-10) 08/15/2017 Unknown R63.5 - Abnormal Arnold-Alex, Active [place] weight gain / [facility] R63.5(ICD-10) Hospital Repository 08/15/2017 Unknown N92.5 - Other Arnold-Alex, Active [place] specified irregular [facility] menstruation / Hospital N92.5(ICD-10) Repository 06/10/2017 Unknown Z12.4 - Encounter Farzana, Active [place] for screening for [facility] malignant neoplasm Hospital of cervix / Repository Z12.4(ICD-10) 06/10/2017 Unknown Z01.419 - Encounter Farzana Active [place] for gynecological [facility] examination Hospital (general) (routine) Repository without abnormal findings / Z01.419(ICD-10) 06/10/2017 Unknown N92.6 - Irregular Arnold-Alex, Active [place] menstruation, [facility] unspecified / Hospital N92.6(ICD-10) Repository 05/02/2017 Unknown N91.2 - Amenorrhea, Librado Ybarra Active [place] unspecified / Community N91.2(ICD-10) Hospital Repository 03/20/2017 Unknown M62.411 - Lambert Richardson Active [place] 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 Submit a new specimen if indicated. Performed By: #### M100.0650 #### [facility] Laboratory [address], [place], [address] GESTATIONAL GTT 3HR Collected: 02/13/2018 Status: F Source: [place] 100G 7:08 AM [facility] [place], [place] REPOSITORY Order Comment: Is Patient Fasting? Y TYPE CODE TESTS RESULT OUT OF RANGE REFERENCE UNITS LAB L501.0650 <105 mg/dL Normal GLU 88 GTT-FASTING Result Comment: GLUCOSE TOLERANCE TEST FOR Reference Interval GESTATIONAL DIABETES Fasting <105 mg/dL 1 hour <190 mg/dl 2 hour <165 mg/dl 3 hour <145 mg/dl LAB L501.0660 <190 mg/dL Normal GLU GTT- 1HR 162 LAB L501.0670 <165 mg/dL Normal GLU GTT- 2HR 136 LAB L501.0680 <145 L Normal GLU GTT- 3HR 122 Performed By: #### L500.4710 #### [facility] Laboratory [address] [place], [place], [address] CBC-COMPLETE BLOOD CNT Collected: 02/10/2018 Status: F Source: [place] NO DIFF 8:40 AM [facility] [place] [place] REPOSITORY TYPE CODE TESTS RESULT OUT OF RANGE REFERENCE UNITS LAB L100.1000 4.4-11.0 K/mm3 Normal WBC 9.1 LAB L100.1200 4.2-5.4 M/mm3 Low RBC 4.08 LAB L100.1300 12.0-15.0 g/dl Low HGB 11.7 LAB L100.1400 37-47 % Low HCT 35.4 LAB L100.1500 81-99 fL Normal MCV 86.8 LAB L100.1600 27.0-32.0 pg Normal MCH 28.7 LAB L100.1700 32-36 g/gl Normal MCHC 33.1 LAB L100.1810 11.6-14.6 % Normal RDW CV 13.6 LAB L100.1820 35.1-43.9 fl Normal RDW SD 43.2 LAB L100.1900 150-450 K/mm3 Normal PLT 179 LAB L100.2000 6.2-12.0 fl Normal MPV 10.7 Performed By: #### L100.0500 #### [facility] Laboratory [address] [place], [address] GLUCOSE CHALLENGE GEST Collected: 02/10/2018 Status: F Source: [place] 1H 50G 8:40 AM [facility] [place] [place] REPOSITORY TYPE CODE TESTS RESULT OUT OF RANGE REFERENCE UNITS LAB L501.0250 70-140 mg/dL High GLU GEST 155 50g 1H Performed By: #### L501.0250 #### [facility] Laboratory [address] [place], [address] 12 LEAD ELECTROCARDIOGRAM Observed: 01/12/2018 Status: F Source: [place] 3:56 PM [facility] [place] [place] REPOSITORY [facility] Cardiovascular Services [address] [place] [address] 12 Lead EKG 01/07/18 1348 MR#: [id number] Acct: [id number] Name: KALA ONEILL Rep #: [id number] : 1985 32 From: Vahe Antoine MD Attending Dr: Status: DEP ER Ordering Dr: Homer Alan DO Date: 01/07/18 Location: ED Sex: F C Admitted: Test Reason : PALPITATIONS Blood Pressure : / mmHG Vent. Rate : 099 BPM Atrial Rate : 099 BPM P-R Int : 140 ms QRS Dur : 086 ms QT Int : 330 ms P-R-T Axes : 022 -01 001 degrees QTc Int : 423 ms Normal sinus rhythm Normal ECG Confirmed by LORENA ALTAMIRANO, VAHE ([id number]), food editor LUCILA KAUR ([id number]) on 01/12/2018 3:56:07 PM Referred By: Tanesha Yanes Confirmed By:VAHE ANTOINE MD 01/12/18 1556 Date Vahe Antoine MD CC: Librado Ybarra DO; Homer Alan DO Signed EMERGENCY DEPARTMENT Observed: 01/11/2018 Status: F Source: [place] SUMMARY 3:20 PM [facility] [place] [place] REPOSITORY [facility] Medical Records Department [address] [place] [address] Emergency Department Summary 01/07/18 1550 MR#: [id number] Acct: [id number] Name: KALA ONEILL Rep #: [id number] : 1985 32 From: Homer Alan DO PCP: Librado Ybarra DO Status: DEP ER - ER Visit Summary Date of Service: 01/07/18 Chief Complaint: [Tachycardia and hypertension] History of Present Illness: The patient is a 32 F [presents to the emergency department with complaint of racing heart and high blood pressure. Patient states she was at work sitting at rest when she started feeling like her heart was racing and she checked her watch which tracks her heart rate and it was 113. Patient also noticed that her blood pressure was 132/82 at the time. Patient felt a little bit short of breath. Patient felt somewhat presyncopal. She did not pass out. Patient states that she has had for the last week some episodes of tachycardia and actually wore a Holter monitor last week for 24 hours but does not have results. Patient is currently 23 weeks and she is . She denies any abdominal pain. She is feeling the baby moving. Patient denies any headache currently although she had a mild headache earlier. She denies any swelling out of the ordinary. She denies any visual changes. Patient denies any fever or recent illness otherwise. She denies dysuria, urgency, or frequency. Patient denies any chest pain.] Physical Examination: [HEENT-PERRLA, EOMI. Cranial nerves II through XII grossly intact. TMs clear. Mucous membranes moist. No adenopathy. Cardiovascular-regular rate and rhythm without murmur or ectopy Lungs-clear to auscultation, chest wall stable without crepitus or subcu emphysema Abdomen-normoactive bowel sounds, soft, nontender, no rebound or rigidity, no peritoneal signs. Extremities-intact 4, normal range of motion, normal pulses, atraumatic] Test Results: [EKG obtained on arrival showed a sinus rhythm with a ventricular rate of 99 bpm with no acute I segment changes. CBC with differential showed a white count 10.3, hemoglobin 12.1, hematocrit 34, platelets 180. Chemistries unremarkable. Troponin was less than 0.015. LFTs were normal. Urinalysis was normal. There is no protein in the urine. D-dimer was less than 0.27. TSH was normal at 1.48. heart tones were 150.] Emergency Department Course and Treatment: [While in the department patient's blood pressure returned to normal and is currently 127/83. I did discuss case with Dr. Landrum who was covering for Dr. Cara Johnson. I was asked to have the patient follow-up with our office next week.] Patient feels like maybe her symptoms are due to anxiety as she does have a history of this and her medication dosage has been decreased since she is . Patient states she has had this happen in the past with medication changes. Treatment Plan: [Follow-up with [facility] next week.] Disposition: [Discharged home in stable condition] Impression: [Palpitations] Anxiety This note was generated with CaseTrekation software. It may contain incorrect words, spelling, and punctuation that were not noted in review of the chart prior to signing ED Disposition - Plan for ED Patient: Chief Complaint: Palpitations Referrals: Librado Ybarra DO [Primary Care Provider] - What to do if you have Problems For any increased pain, shortness of breath, bleeding, nausea or vomiting, chest pain, or any unexpected problems, contact your Primary Care Provider. Call [facility] ([phone]) or report to the closest Emergency Room. Call 911 if necessary. 01/11/18 1520 <Electronically signed by Homer Alan DO> Date Homer Alan DO Cosigner Signature (If Indicated): Date CC: Librado Ybarra DO DISCHARGE INSTRUCTION Observed: 01/07/2018 Status: F Source: [place] 4:56 PM [facility] [place] [place] REPOSITORY [facility] Medical Records Department [address] [place] [address] Discharge Instruction 01/07/18 1655 MR#: [id number] Acct: [id number] Name: KALA ONEILL Rep #: [id number] : 1985 32 From: Homer Alan DO PCP: Librado Ybarra DO Status: REG ER ED Disposition - Plan for ED Patient: Chief Complaint: Palpitations Instructions: ED Palpitations, ED Stress React Referrals: Librado Ybarra DO [Primary Care Provider] - Tanesha Yanes MD [STAFF PHYSICIAN] - 5-7 Days What to do if you have Problems For any increased pain, shortness of breath, bleeding, nausea or vomiting, chest pain, or any unexpected problems, contact your Primary Care Provider. Call [facility] ([phone]) or report to the closest Emergency Room. Call 911 if necessary. 01/07/18 1656 <Electronically signed by Homer Alan DO> Date Homer Alan DO Cosigner Signature (If Indicated): Date CC: Librado Ybarra DO URINALYSIS, COMPLETE Collected: 01/07/2018 Status: F Source: [place] 4:00 PM [facility] [place] [place] REPOSITORY Order Comment: Order Date: 01/07/18 Has pt arrived? Y How was Urine Obtained? CLEAN CATCH TYPE CODE TESTS RESULT OUT OF RANGE REFERENCE UNITS LAB L400.3000 Yellow COLOR Normal Yellow LAB L400.3050 Clear Normal CLARITY Cloudy LAB L400.3200 Normal mg/dl Normal GLUCOSE, UR Normal LAB L400.3300 Negative mg/dL Normal BILIRUBIN URINE Negative LAB L400.3400 Negative mg/dl Normal KETONE UR Negative LAB L400.3465 1.002-1.030 Normal SP.GR. DIPSTX 1.020 LAB L400.3550 5.0 - 8.0 pH UR Normal 6.0 LAB L400.3600 Negative mg/dl PROT Normal DIPSTX Negative LAB L400.3700 Normal mg/dl Normal UROBILI Normal LAB L400.3750 Negative Normal NITRITE UR Negative LAB L400.3780 Negative /ul Normal OCCULT BLOOD-UR Negative LAB L400.3800 Negative /ul High LEUK 25 ESTERASE LAB L400.4050 0-5 /hpf WBC Normal 0-5 SEEN LAB L400.4100 0-5 /hpf Normal RBC-UA 0-5 SEEN LAB L400.4150 5-10 /hpf SQUAM Normal EPI 0-5 SEEN LAB L400.4300 None Seen /hpf 1+ Normal BACTERIA LAB L400.4350 <or=2+ /hpf 0 Normal MUCUS, URINE SEEN Performed By: #### L400.0001 #### [facility] [place], [address] CBC W/DIFF, AUTOMATED Collected: 01/07/2018 Status: F Source: [place] 3:55 PM [facility] [place] [place] REPOSITORY TYPE CODE TESTS RESULT OUT OF RANGE REFERENCE UNITS LAB L100.1000 4.4-11.0 K/mm3 Normal WBC 10.3 LAB L100.1200 4.2-5.4 M/mm3 Low RBC 3.99 LAB L100.1300 12.0-15.0 g/dl Normal HGB 12.1 LAB L100.1400 37-47 % Low HCT 33.9 LAB L100.1500 81-99 fL Normal MCV 85.0 LAB L100.1600 27.0-32.0 pg Normal MCH 30.3 LAB L100.1700 32-36 g/gl Normal MCHC 35.7 LAB L100.1810 11.6-14.6 % Normal RDW CV 12.9 LAB L100.1820 35.1-43.9 fl Normal RDW SD 38.8 LAB L100.1900 150-450 K/mm3 Normal PLT 180 LAB L100.2000 6.2-12.0 fl Normal MPV 10.4 LAB L100.2100 47-70 % High NEUT% 70.6 LAB L100.2200 19-41 % Normal LY% 21.2 LAB L100.2300 0-10 % Normal MONO% 6.1 LAB L100.2400 0-5 % Normal EO% 1.4 LAB L100.2500 0-1 % Normal BASO% 0.2 LAB L100.2550 0.0-0.9 % Normal IM GRAN % 0.500 Result Comment: IG% - Immature Granulocytes (promyelocytes, myelocytes and metamyelocytes) > 1% indicates that a LEFT SHIFT is Present. LAB L100.2620 2.0-7.7 X10 3/uL Normal Absolute Neut 7.3 LAB L100.2720 0.83-4.51 X10 3/ul Normal Absolute Lymph 2.19 Performed By: #### L100.0100 #### [facility] Laboratory [address] [place], [address] D-DIMER QUANTITATIVE Collected: 01/07/2018 Status: F Source: [place] (DVT/PE) 3:55 PM [facility] [place] [place] REPOSITORY TYPE CODE TESTS RESULT OUT OF RANGE REFERENCE UNITS LAB L300.8000 0.27-0.49 FEU/ug/m Low D-DIMER < 0.27 QUANT Result Comment: NORMAL D-Dimer level (<0.50) indicates no DVT or PE. Performed By: #### L300.8000 #### [facility] [address] [facility] [facility] [address] [place], [place], [address] COMPREHENSIVE METABOLIC Collected: 01/07/2018 Status: F Source: [place] PROFIL 3:55 PM [facility] [place] [place] REPOSITORY TYPE CODE TESTS RESULT OUT OF RANGE REFERENCE UNITS LAB L501.0100 74-106 mg/dL Normal GLU 81 Result Comment: Please note revised GLUCOSE reference range effective 2017. LAB L501.1000 7-18 mg/dL Low BUN 5 LAB L501.1100 0.55-1.02 mg/dL Low CREAT,SERUM 0.40 Result Comment: The validity of the calculated GFR AND GFRAA in patients over 70 years has not been determined. Clinical correlation is essential. LAB L501.1110 >60 mL/min Normal EST GFR 194 Result Comment: Non- GFR Calc LAB L501.1115 >60 mL/min Normal EST GFR - AA 234 Result Comment: GFR Calc LAB L501.1255 ml/min Normal Estimated CRCL 171.13 LAB L501.1300 10-20 RATIO BUN/CRE Normal 12.5 LAB L501.1500 6.4-8. g/dL 2 T PROT Normal 7.1 LAB L501.1800 3.2-5. g/dL 0 ALB Normal 3.4 LAB L501.1950 2.2-4. g/dL 2 GLOB Normal 3.7 LAB L501.2000 0.9-2. RATIO 4 A/G Normal 0.9 LAB L501.2200 8.5-10 mg/dL .1 CA Normal 8.8 LAB L501.4100 15-37 U/L Low AST 14 LAB L501.4305 45-117 U/L ALK P Normal 69 LAB L501.4405 13-56 U/L ALT Normal 26 LAB L501.4600 0.20-1 mg/dL .00 T BILI Normal 0.20 LAB L501.5300 136-14 mmol/L 5 NA Normal 136 LAB L501.5600 3.5-5. mmol/L 1 K Normal 3.6 LAB L501.5900 98-107 mmol/L CL Normal 106 LAB L501.6100 21.0-3 mmol/L 2.0 CO2 Normal 24.0 LAB L501.6200 5-15 GAP Normal 6 Performed By: #### L500.4050, L501.4010, L501.9520 #### [facility] Laboratory [address] [facility] [place], [place], [id number] TROPONIN-I Collected: 01/07/2018 Status: F Source: [place] 3:55 PM [facility] [place] [place] REPOSITORY TYPE CODE TESTS RESULT OUT OF RANGE REFERENCE UNITS LAB L501.4010 <0.045 ng/mL Normal < 0.015 TROPONIN-I Result Comment: TROPONIN-I EXPECTED VALUES <0.045 Negative 0.045 - 0.590 Consistent with Cardiac Damage > OR = 0.600 Critical Value Not every elevated troponin is indicative of HI. These values should be used with clinical judgement in examining the patient's clinical picture for diagnosis. To establish a diagnosis of HI versus myocardial injury, there must be a demonstrated rise and/or fall in the troponin values, in addition to ischemic symptoms, EKG changes, new regional wall motion abnormality, and/or angiographical evidence. PLEASE NOTE: REFERENCE RANGES EDITED 17 Performed By: #### L500.4050, L501.4010, L501.9520 #### [facility] [address] [facility] [facility] [place], [place], [id number] THYROID STIM HORMONE Collected: 01/07/2018 Status: F Source: [place] (TSH) 3:55 PM [facility] [place] [place] REPOSITORY TYPE CODE TESTS RESULT OUT OF RANGE REFERENCE UNITS LAB L501.9520 0.358-3.74 uIU/mL Normal TSH 1.48 Performed By: #### L500.4050, L501.4010, L501.9520 #### [facility] [address] [place], [address] PROTEIN, URINE 24HR Collected: 11/02/2017 Status: F Source: [place] 9:25 AM [facility] [place] [place] REPOSITORY TYPE CODE TESTS RESULT OUT OF RANGE REFERENCE UNITS LAB L501.1850 24.0 HOURS Normal UR COLLECT 24.0 TIME LAB L501.1875 mL Normal UR TOTAL 2250 VOLUME LAB L501.1900 <11.9 mg/dL Normal URINE PROTEIN < 6.0 LAB L501.1925 <150 MG/24HR mg/24HR Normal 24hr UR 128.2 PROTEIN Performed By: #### L500.9000, L502.000 #### [facility] [place], [address] 24 HR URINE CREATININE Collected: 11/02/2017 Status: F Source: [place] 9:25 AM [facility] [place] [place] REPOSITORY TYPE CODE TESTS RESULT OUT OF RANGE REFERENCE UNITS LAB L502.0100 24.0 HOURS Normal UR COLLECT 24.0 TIME LAB L502.0200 L Normal UR TOTAL 2.20 VOLUME LAB L502.0300 NO RANGE EST. mg/dL Normal URINE CREAT 74.60 LAB L502.0400 0.70-1.90 g/24 HR Normal UR.CREAT/24hr 1.68 Performed By: #### L500.9000, L502.000 #### [facility] Laboratory [address] [place], [address] FREE T3 Collected: 10/17/2017 Status: F Source: [place] 12:59 PM [facility] [place], [place] REPOSITORY Order Comment: PLEASE ADD TO LABS DRAWN 10/17/17 0720:E138---RV7 3 I TYPE CODE TESTS RESULT OUT OF RANGE REFERENCE UNITS LAB L501.13618 2.18-3.98 pg/mL Normal FREE T3 2.9 Performed By: #### L501.52038, L501.9310, L501.9520, L506.0400 #### [facility] Laboratory [address] [place], [address] T4 TOTAL, THYROXIN Collected: 10/17/2017 Status: F Source: [place] 12:59 PM [facility] [place] [place] REPOSITORY TYPE CODE TESTS RESULT OUT OF RANGE REFERENCE UNITS LAB L501.9310 4.8-13.9 ug/dL T4 Normal THYROXIN 11.5 Performed By: #### L501.85478, L501.9310, L501.9520, L506.0400 #### [facility] Laboratory [address] [place], [address] THYROID STIM HORMONE Collected: 10/17/2017 Status: F Source: [place] (TSH) 12:59 PM [facility] [place] [place] REPOSITORY Order Comment: PLEASE ADD TO LABS DRAWN 10/17/17 0720:[id number]---OG9 3 I TYPE CODE TESTS RESULT OUT OF RANGE REFERENCE UNITS LAB L501.9520 0.358-3.74 uIU/mL Normal TSH 0.79 Performed By: #### L501.08904, L501.9310, L501.9520, L506.0400 #### [facility] Laboratory [address] [facility] [place], [address] T4 FREE DIRECT Collected: 10/17/2017 Status: F Source: [place] 12:59 PM [facility] [place] [place] REPOSITORY Order Comment: PLEASE ADD TO LABS DRAWN 10/17/17 0720:Z398---SM5 3 I TYPE CODE TESTS RESULT OUT OF RANGE REFERENCE UNITS LAB L506.0400 0.76-1.46 ng/dL Normal T4 FREE 0.86 DIRECT Performed By: #### L501.06128, L501.9310, L501.9520, L506.0400 #### [facility] Laboratory [address] [place], [address] OB LIMITED WITH Observed: 10/15/2017 Status: F Source: [place] BIOMETRICS 2:09 PM [facility] [place] [place] REPOSITORY [facility] Imaging Services [address] [place] [address] OB Limited With Biometrics MR#: [id number] Acct: [id number] Name: KALA ONEILL Rep #: [id number] : 1985 F 31 From: Lazara Correia MD PCP: Tate MATOSLibrado Status: REG CLI Study: OB Limited With Biometrics Date of Exam: 10/15/17 Exam# [id number] Ordering Dr: Rhianna Molina MD STUDY: FIRST TRIMESTER OBSTETRICAL ULTRASOUND REASON FOR EXAM: Female, 31 years old. Viability LMP: 07/26/2017 TECHNIQUE: Transvaginal PRIOR ULTRASOUND: 09/13/2017 FINDINGS: There is visualization of a single gestational sac in a normal intrauterine position. The gestational sac shape is within normal limits. There is a small 1.3 x 1.4 x 1.2 cm subchorionic hemorrhage. There is a visualized yolk sac. The yolk sac measures 0.5. The placenta is non-visualized. There is visualization of a live embryo. The crown-rump length (CRL) measures 4.5 cm, indicating an estimated gestational age (EGA) of 11 weeks, 3 days. There is demonstrated cardiac activity with a heart rate of 154 bpm. The estimated gestation age (EGA) by LMP is 11 weeks, 4 days. The estimated date of delivery (LUIS FERNANDO) by LMP is 05/02/2018. The estimated gestation age (EGA) by US is 11 weeks, 3 days. The estimated date of delivery (LUIS FERNANDO) by US is 05/20/2018. The uterus measures 11.5 x 8 x 5 x 6.5 cm. There is no demonstrated uterine fibroid. The cervix is closed. The right ovary measures 3.5 x 2.5 x 2 cm. There is no right ovarian cyst. There is no visualized right adnexal mass or complex lesion. The left ovary measures 4.5 x 3 x 3 cm. There is a 2.5 cm left ovarian cyst. There is no visualized left adnexal mass or complex lesion. There is no fluid in the cul de sac. US/OB Limited With Biometrics IMPRESSION: Single live intrauterine 11 week 3 day gestation with an LUIS FERNANDO of 05/03/2018. Small subchorionic hemorrhage. Post internal cervical os. Small left ovarian cyst. No adnexal masses, large pelvic fluid or ovarian torsion. Electronically Signed: Lazara Correia MD at 7:37 EDT , Service support , CC: Rhianna Molina MD; Librado Ybarra DO Or Assistant: Signed EMERGENCY DEPARTMENT Observed: 09/30/2017 Status: F Source: [place] SUMMARY 11:36 PM [facility] [place], [place] REPOSITORY [facility] Medical Records Department [address] [facility] [place] [address] Emergency Department Summary 09/27/17 1615 MR#: [id number] Acct: [id number] Name: KALA ONEILL Rep #: [id number] : 1985 31 From: Neo Alcantara DO PCP: Librado Ybarra DO Status: DEP ER - ER Visit Summary Date of Service: 09/27/17 Chief Complaint: Nausea vomiting History of Present Illness: The patient is a 31 F who states that she is 9 weeks () and has been having morning sickness this . She states that yesterday and today she just does not feel right she feels that there is been more vomiting particular today. She notes no change in her chronic diarrhea. No fevers. Physical Examination: Afebrile vital signs are stable noted blood pressure 148/84 in triage this is come down in the department Gen: Well-nourished well-developed Head: Normocephalic atraumatic Eyes: Perrl EOMI ENT: TMs clear no rhinorrhea moist mucous membranes Neck: Supple no lymphadenopathy no JVD nontender CVS: Regular rate rhythm no murmurs normal S1-S2 Respiratory: No distress clear to auscultation bilaterally chest nontender Abdomen: Soft nontender nondistended normal bowel sounds no masses Back: Nontender Extremity: Nontender no edema Skin: Normal color no rash Neuro: alert orientated 3 CN II-XII intact normal strength sensation reflexes gait cerebellar Psych: Normal affect normal mood Test Results: Urinalysis was obtained. Emergency Department Course and Treatment: Patient received IV fluids and Zofran. heart tones were 158. Patient is tolerating p.o. 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 Impression: 1. Vomiting 2. First trimester This note was generated with Nvidia dictation software. It may contain incorrect words, spelling, and punctuation that were not noted in review of the chart prior to signing ED Disposition - Plan for ED Patient: Disposition: Home or Assisted Living Chief Complaint: Nausea/Vomiting Instructions: ED Preg Morning Sickness Prescriptions: Ondansetron [Zofran Odt] 4 mg PO Q8H PRN PRN #14 tab PRN Reason: Nausea Referrals: Tanesha Yanes MD [STAFF PHYSICIAN] - Keep Alessandro appointment Additional Instructions: Your blood pressure today was 132/60 (a manual reading) please follow-up with your BEATER OUT. What to do if you have Problems For any increased pain, shortness of breath, bleeding, nausea or vomiting, chest pain, or any unexpected problems, contact your Primary Care Provider. Call [facility] ([phone]) or report to the closest Emergency Room. Call 911 if necessary. 09/30/17 9109 <Electronically signed by Neo Alcantara DO> Date Neo Alcantara DO Cosigner Signature (If Indicated): Date CC: Librado Ybarra DO URINALYSIS, COMPLETE Collected: 09/27/2017 Status: F Source: [place] 4:50 PM [facility] [place] [place] REPOSITORY Order Comment: Order Date: 09/27/17 How was Urine Obtained? CLEAN CATCH TYPE CODE TESTS RESULT OUT OF RANGE REFERENCE UNITS LAB L400.3000 Yellow COLOR Normal Yellow LAB L400.3050 Clear Normal CLARITY Cloudy LAB L400.3200 Normal mg/dl Normal GLUCOSE, UR Normal LAB L400.3300 Negative mg/dL Normal BILIRUBIN URINE Negative LAB L400.3400 Negative mg/dl High KETONE UR 150 Result Comment: CRITICAL VALUE *H CALLED ARISTEO OLDER 09/27/17 1706 BY REGINAIEL LAB L400.3465 1.002-1.030 Normal SP.GR. DIPSTX 1.020 LAB L400.3550 5.0 - 8.0 pH Normal UR 6.0 LAB L400.3600 Negative mg/dl Normal PROT DIPSTX Negative LAB L400.3700 Normal mg/dl Normal UROBILI Normal LAB L400.3750 Negative Normal NITRITE UR Negative LAB L400.3780 Negative /ul Normal OCCULT Negative BLOOD-UR LAB L400.3800 Negative /ul Normal LEUK ESTERASE Negative LAB L400.4050 0-5 /hpf Normal WBC 0-5 SEEN LAB L400.4100 0-5 /hpf 0 Normal RBC-UA SEEN LAB L400.4150 5-10 /hpf Normal SQUAM EPI 0-5 SEEN LAB L400.4300 None Seen /hpf 1+ Normal BACTERIA LAB L400.4350 <or=2+ /hpf Normal MUCUS, URINE RARE Performed By: #### L400.0001 #### [facility] Laboratory [address] [place], [address] INIT OB < 14WKS US Observed: 09/13/2017 Status: F Source: [place] 1:32 PM [facility] [place] [place] REPOSITORY [facility] Imaging Services [address] [place] [address] Init OB < 14Wks US MR#: [id number] Acct: [id number] Name: KALA ONEILL Rep #: [id number] : 1985 F 31 From: Domenico Pacheco MD PCP: Librado Ybarra DO Status: REG CLI Study: Init OB < 14Wks US Date of Exam: 09/13/17 Exam# [id number] Ordering Dr: Tanesha Arvizu MD STUDY: FIRST TRIMESTER OBSTETRICAL ULTRASOUND REASON FOR EXAM: Female, 31 years old. Determination of dates and viability LMP: 07/26/2017 TECHNIQUE: Transabdominal and transvaginal probes were used PRIOR ULTRASOUND: None. FINDINGS: The study shows a gravid uterus measuring 8.8 x 6.6 x 4.9 cm. It contains a gestational sac with good decidual reaction around it. Within the sac is a developing embryo with a heart rate of 12 6 bpm and a crown- rump length of 7.3 mm compatible with 6 weeks 5 days +/- 5 days gestational age and an expected date of delivery of 05/05/2018. Both ovaries are visualized and demonstrate normal Doppler flows through them. The right ovary measures 2.9 x 2.2 x 1.8 cm and the left 5.3 x 3.4 x 3.7 cm. There is a 3.1 cm corpus luteal cyst in the left. There is no free fluid in the cul-de-sac. .. US/Init OB < 14Wks US IMPRESSION: An early intrauterine at 6 weeks 5 days +/- 5 days with an estimated date delivery of 05/05/2018 Electronically Signed: Domenico Traa, at 10:51 EDT Tel , Service support , CC: Librado Ybarra DO; Tanesha Yanes MD Or Assistant: Signed URINE DRUG SCREEN Collected: 09/10/2017 Status: F Source: [place] (VIST[place]) 7:56 AM [facility] [place], [place] REPOSITORY Order Comment: List of Drugs Taken or Suspected? UNK TYPE CODE TESTS RESULT OUT OF RANGE REFERENCE UNITS LAB L505.0075 TO BE Normal CONFIRMED Result Comment: CONFIRMATORY TESTING FOR ALL POSITIVE URINE DRUG SCREEN RESULTS WILL ONLY BE SENT OUT UPON PHYSICIAN ORDER. VISTA Urine Drug Screen methods provide only preliminary analytical test results. A more specific alternate chemical method must be used in order to obtain a confirmed analytical result. Gas chromatography/mass spectrometery (GC/MS) is the preferred confirmatory method. Clinical consideration and professional judgement should be applied to any drug of abuse test result, particularly when preliminary positive results are used. URINE TCA TESTING MUST BE ORDERED SEPARATELY. USE TEST MNEMONIC: [facility] LAB L505.5005 VISTA UDS PH 7 Normal LAB L505.5015 <1000 ng/mL AMPHETAMINES Normal NEGATIVE LAB L505.5025 < 200 ng/mL BARBITIURATES Normal NEGATIVE LAB L505.5035 < 200 ng/mL BENZODIAZIPINE Normal NEGATIVE LAB L505.5045 < 300 ng/mL COCAINE Normal NEGATIVE LAB L505.5055 < 500 ng/mL ECSTACY Normal NEGATIVE LAB L505.5065 < 300 ng/mL METHADONE Normal NEGATIVE LAB L505.5075 < 300 ng/mL OPIATES Normal NEGATIVE LAB L505.5085 < 25 ng/mL PCP Normal NEGATIVE LAB L505.5095 < 50 ng/mL THC Normal NEGATIVE Performed By: #### L505.5000 #### [facility] Laboratory [address] [place], [address] CBC W/DIFF, AUTOMATED Collected: 09/10/2017 Status: F Source: [place] 7:56 AM [facility] [place] [place] REPOSITORY TYPE CODE TESTS RESULT OUT OF RANGE REFERENCE UNITS LAB L100.1000 4.4-11.0 K/mm3 Normal WBC 8.6 LAB L100.1200 4.2-5.4 M/mm3 Normal RBC 4.52 LAB L100.1300 12.0-15.0 g/dl Normal HGB 13.4 LAB L100.1400 37-47 % Normal HCT 38.7 LAB L100.1500 81-99 fL Normal MCV 85.6 LAB L100.1600 27.0-32.0 pg Normal MCH 29.6 LAB L100.1700 32-36 g/gl Normal MCHC 34.6 LAB L100.1810 11.6-14.6 % Normal RDW CV 12.2 LAB L100.1820 35.1-43.9 fl Normal RDW SD 37.5 LAB L100.1900 150-450 K/mm3 Normal PLT 230 LAB L100.2000 6.2-12.0 fl Normal MPV 10.4 LAB L100.2100 47-70 % Normal NEUT% 65.1 LAB L100.2200 19-41 % Normal LY% 26.9 LAB L100.2300 0-10 % Normal MONO% 6.3 LAB L100.2400 0-5 % Normal EO% 1.4 LAB L100.2500 0-1 % Normal BASO% 0.2 LAB L100.2550 0.0-0.9 % Normal IM GRAN % 0.100 Result Comment: IG% - Immature Granulocytes (promyelocytes, myelocytes and metamyelocytes) > 1% indicates that a LEFT SHIFT is Present. LAB L100.2620 2.0-7.7 X10 3/uL Normal Absolute Neut 5.6 LAB L100.2720 0.83-4.51 X10 3/ul Normal Absolute Lymph 2.31 Performed By: #### L100.0100 #### [facility] Laboratory [address] [place], [address] GLUCOSE Collected: 09/10/2017 Status: F Source: [place] 7:56 AM [facility] [place] [place] REPOSITORY TYPE CODE TESTS RESULT OUT OF RANGE REFERENCE UNITS LAB L501.0100 74-106 mg/dL Normal GLU 97 Result Comment: Please note revised GLUCOSE reference range effective 2017. Performed By: #### L501.0100, L501.60038, L501.9520, L506.0400 #### [facility] Laboratory [address] [place], [place], [address] FREE T3 Collected: 09/10/2017 Status: F Source: [place] 7:56 AM [facility] [place] [place] REPOSITORY TYPE CODE TESTS RESULT OUT OF RANGE REFERENCE UNITS LAB L501.15489 2.18-3.98 pg/mL Normal FREE T3 3.2 Performed By: #### L501.0100, L501.12603, L501.9520, L506.0400 #### [facility] Laboratory [address] [place], [address] THYROID STIM HORMONE Collected: 09/10/2017 Status: F Source: [place] (TSH) 7:56 AM [facility] [place] [place] REPOSITORY TYPE CODE TESTS RESULT OUT OF RANGE REFERENCE UNITS LAB L501.9520 0.358-3.74 uIU/mL Normal TSH 2.40 Performed By: #### L501.0100, L501.50809, L501.9520, L506.0400 #### [facility] Laboratory [address] [place], [address] T4 FREE DIRECT Collected: 09/10/2017 Status: F Source: [place] 7:56 AM [facility] [place] [place] REPOSITORY TYPE CODE TESTS RESULT OUT OF RANGE REFERENCE UNITS LAB L506.0400 0.76-1.46 ng/dL Normal T4 FREE 0.89 DIRECT Performed By: #### L501.0100, L501.23977, L501.9520, L506.0400 #### [facility] Laboratory [address] [place], [address] URINALYSIS, ROUTINE Collected: 09/10/2017 Status: F Source: [place] (DIPSTICK) 7:56 AM [facility] [place] [place] REPOSITORY Order Comment: How was Urine Obtained? Urine, Random TYPE CODE TESTS RESULT OUT OF RANGE REFERENCE UNITS LAB L400.3000 Yellow COLOR Normal Yellow LAB L400.3050 Clear Normal CLARITY Sl. Cloudy LAB L400.3200 Normal mg/dl Normal GLUCOSE, UR Normal LAB L400.3300 Negative mg/dL Normal BILIRUBIN URINE Negative LAB L400.3400 Negative mg/dl Normal KETONE UR Negative LAB L400.3465 1.002-1.030 Normal SP.GR. DIPSTX 1.010 LAB L400.3550 5.0 - 8.0 pH UR Normal 6.5 LAB L400.3600 Negative mg/dl PROT Normal DIPSTX Negative LAB L400.3700 Normal mg/dl Normal UROBILI Normal LAB L400.3750 Negative Normal NITRITE UR Negative LAB L400.3780 Negative /ul Normal OCCULT BLOOD-UR Negative LAB L400.3800 Negative /ul High LEUK 25 ESTERASE Performed By: #### L400.2010 #### [facility] Laboratory [address] [place], [address] RUBELLA IGG Collected: 09/10/2017 Status: F Source: [place] 7:56 AM [facility] [place] [place] REPOSIT[place] TYPE CODE TESTS RESULT OUT OF RANGE REFERENCE UNITS LAB L509.4000 IU/mL Normal Rubella IgG 73.7 Result Comment: Antibody results Interpretation of Immune Status < 5 IU/ml Presumed Non-immune 5 - < 10 IU/ml Equivocal > or = 10 IU/ml Presumed Immune Performed By: #### L509.4000, L3890.6005 #### [facility] Laboratory [address] [place], [place], [address] HIV - [facility] Collected: 09/10/2017 Status: F Source: [place] 7:56 AM [facility] [place] [place] REPOSIT[place] TYPE CODE TESTS RESULT OUT OF RANGE REFERENCE UNITS LAB L3890.6005 Nonreactive Normal HIV - [facility] Non-Reactive Performed By: #### L509.4000, L3890.6005 #### [facility] Laboratory [address] [place], [address] T AND S-NO Collected: 09/10/2017 Status: F Source: [place] CHARGE W/PNP 7:56 AM [facility] [place] [place] REPOSITORY Order Comment: Reason for Type AND Screen/Red Cells: Surgery? N TYPE CODE TESTS RESULT OUT OF RANGE REFERENCE UNITS LAB B10.0800 O Normal BLOOD POSITIVE TYPE GEL LAB B100.4050 Normal Ab SCREEN NEGATIVE GEL Performed By: #### B100.7550 #### [facility] Laboratory [facility] [place], [address] RPR Collected: 09/10/2017 Status: F Source: [place] 7:56 AM [facility] [place] [place] REPOSITORY TYPE CODE TESTS RESULT OUT OF REFERENCE UNITS RANGE LAB L700.5100 NONREACTIVE Normal RPR NONREACTIVE Performed By: #### L700.5100 #### [facility] Laboratory [facility] [place], [address] HEPATITIS B SURFACE Collected: 09/10/2017 Status: F Source: [place] AG 7:56 AM [facility] [place] [place] REPOSITORY TYPE CODE TESTS RESULT OUT OF RANGE REFERENCE UNITS LAB L3100.0400 Negative Normal HB Negative SURF AG Result Comment: Performed at: - [facility] [id number] Supervisor Brine: Dany White PhD, Phone: [phone] Performed By: #### L3100.0390, L3100.0625 #### [facility] (refer to report for specific site) refer to report for address and phone number HEPATITIS C ANTIBODIES Collected: 09/10/2017 Status: F Source: [place] 7:56 AM [facility] [place] [place] REPOS[place] TYPE CODE TESTS RESULT OUT OF RANGE REFERENCE UNITS LAB L3100.0650 0.0-0.9 s/co ratio Normal HEP C AB <0.1 Result Comment: Negative: < 0.8 Indeterminate: 0.8 - 0.9 Positive: > 0.9 The CDC recommends that a positive HCV antibody result be followed up with a HCV Nucleic Acid Amplification test (902116). Performed By: #### L3100.0390, L3100.0625 #### [facility] (refer to report for specific site) refer to report for address and phone number CT/NG [facility] BY PCR Collected: 09/09/2017 Status: F Source: [place] 4:50 PM [facility] [place] [place] REPOSIT[place] TYPE CODE TESTS RESULT OUT OF RANGE REFERENCE UNITS LAB L8200.2100 Negative Normal Chlam Negative Trac PCR LAB L8200.2200 Negative Normal NG by Negative PCR Performed By: #### L8200.2000 #### [facility] Laboratory [address] [place], [address] HCG TITER QUANT., Collected: 08/24/2017 Status: F Source: [place] SERUM 9:53 AM [facility] [place] [place] REPOS[place] TYPE CODE TESTS RESULT OUT OF RANGE REFERENCE UNITS LAB L700.8000 <9 non-preg mIU/mL High HCG 38 QUANT. Performed By: #### L700.8000 #### [facility] Laboratory [address] [place], [address] HCG TITER QUANT., Collected: 08/22/2017 Status: F Source: [place] SERUM 8:23 AM [facility] [place] [place] REPOSIT[place] TYPE CODE TESTS RESULT OUT OF RANGE REFERENCE UNITS LAB L700.8000 <9 non-preg mIU/mL High HCG 10 QUANT. Performed By: #### L700.8000 #### [facility] Laboratory [address] [place], [address] HCG TITER QUANT., Collected: 08/18/2017 Status: F Source: [place] SERUM 1:23 PM [facility] [place] [place] REPOS[place] TYPE CODE TESTS RESULT OUT OF RANGE REFERENCE UNITS LAB L700.8000 <9 non-preg mIU/mL Normal HCG < 1 QUANT. Performed By: #### L700.8000 #### [facility] Laboratory [address] [place], [address] PROGESTERONE LEVEL Collected: 08/15/2017 Status: F Source: [place] 11:30 AM [facility] [place] [place] REPOSITORY Order Comment: TODAY IS CYCLE DAY 21 TYPE CODE TESTS RESULT OUT OF REFERENCE UNITS RANGE LAB L509.4001 See Comment ng/mL Progesterone Normal 20.60 Result Comment: Progesterone Reference Table: UNITS Female: Follicular 0.15 - 1.40 ng/mL Luteal 3.34 - 25.56 ng/mL Mid-luteal 4.44 - 28.03 ng/mL Postmenopausal 0.0 - 0.73 ng/mL : 1st Trimester 11.22 - 90.00 ng/mL 2nd Trimester 25.55 - 89.40 ng/mL 3rd Trimester 48.40 -422.50 ng/mL Performed By: #### L509.4001 #### [facility] Laboratory [address] [place], [address] INSULIN LIKE GROWTH Collected: 07/11/2017 Status: F Source: [place] FACTOR 8:18 AM [facility] [place] [place] REPOSITORY Order Comment: PLEASE PULL SPECIMEN, ADD TO BATCH AND SEND TO [facility]. RACK : [id number] 4 J. THANK YOU Has Patient had Radioactive Injection for X-ray?: N TYPE CODE TESTS RESULT OUT OF RANGE REFERENCE UNITS LAB L3400.1350 73-243 ng/mL Normal INSULIN 148 [id number] Result Comment: Performed at: [address] [id number] Supervisor Brine: Mann Bolivar MD, Phone: [phone] Performed By: #### L3400.1350 #### [facility] refer to report for address and phone number PROGESTERONE LEVEL Collected: 07/09/2017 Status: F Source: [place] 8:18 AM [facility] [place] [place] RE[place] TYPE CODE TESTS RESULT OUT OF REFERENCE UNITS RANGE LAB L509.4001 See Comment ng/mL Progesterone Normal 0.40 Result Comment: Progesterone Reference Table: UNITS Female: Follicular 0.15 - 1.40 ng/mL Luteal 3.34 - 25.56 ng/mL Mid-luteal 4.44 - 28.03 ng/mL Postmenopausal 0.0 - 0.73 ng/mL : 1st Trimester 11.22 - 90.00 ng/mL 2nd Trimester 25.55 - 89.40 ng/mL 3rd Trimester 48.40 -422.50 ng/mL Performed By: #### L509.4001 #### [facility] Laboratory [address] [place], [address] TRANSVAGINAL Observed: 07/03/2017 Status: F Source: [place] NON- 6:32 PM [facility] [place] [place] REPOSITORY [facility] Imaging Services [address] [place] [address] Transvaginal Non- MR#: [id number] Acct: [id number] Name: KALA ONEILL Rep #: [id number] : 1985 F 31 From: Lucila Vanegas MD PCP: Librado Ybarra DO Status: REG CLI Study: Transvaginal Non- Date of Exam: 07/03/17 Exam# [id number] Ordering Dr: Tanesha Arvizu MD US Transvaginal Non-OB INDICATION: IRREG MENSES ABN LABS COMPARISON: None TECHNIQUE: Ultrasonographic grayscale, Doppler and duplex investigation of the pelvic structures by transabdominal and transvaginal approach. Doppler waveform analysis. FINDINGS: The uterus is anteverted and measures 8.8 x 4.1 x 3.1 cm. Endometrial stripe is homogeneous and measures 5 mm. Small amount of fluid is seen in the cervix. Ovaries are normal in size and demonstrate normal follicular anatomy and normal flow. Largest cyst or dominant follicle in the left ovary measures 1.5 cm. There is no evidence of free fluid. US/Transvaginal Non- IMPRESSION: Small amount of fluid in the cervix. Otherwise unremarkable pelvic ultrasound. at 1853 Reported and signed by: Lucila Vanegas MD Electronically Signed: Lucila Vanegas MD at 17:52 EDT Tel , Service support , CC: Librado Yanes MD Or Assistant: Signed PELVIC (NON ) Observed: 07/03/2017 Status: F Source: [place] 6:21 PM [facility] [place] [place] REPOSITORY [facility] Imaging Services [address] [place] [address] Pelvic (Non ) MR#: [id number] Acct: [id number] Name: KALA ONEILL Rep #: [id number] : 1985 F 31 From: Lucila Vanegas MD PCP: Librado Ybarra DO Status: REG CLI Study: Pelvic (Non ) Date of Exam: 07/03/17 Exam# [id number] Ordering Dr: Tanesha Arvizu MD US Transvaginal Non-OB INDICATION: IRREG MENSES ABN LABS COMPARISON: None TECHNIQUE: Ultrasonographic grayscale, Doppler and duplex investigation of the pelvic structures by transabdominal and transvaginal approach. Doppler waveform analysis. FINDINGS: The uterus is anteverted and measures 8.8 x 4.1 x 3.1 cm. Endometrial stripe is homogeneous and measures 5 mm. Small amount of fluid is seen in the cervix. Ovaries are normal in size and demonstrate normal follicular anatomy and normal flow. Largest cyst or dominant follicle in the left ovary measures 1.5 cm. There is no evidence of free fluid. US/Pelvic (Non ) IMPRESSION: Small amount of fluid in the cervix. Otherwise unremarkable pelvic ultrasound. at 1853 Reported and signed by: Lucila Vanegas MD Electronically Signed: Lucila Vanegas MD at 17:52 EDT Tel , Service support , CC: Librado Yanes MD Or Assistant: Signed FREE T3 Collected: 07/03/2017 Status: F Source: [place] 9:59 AM [facility] [place] [place] REPOSITORY Order Comment: Has Patient had X-rays with Contrast this admission? N TYPE CODE TESTS RESULT OUT OF RANGE REFERENCE UNITS LAB L501.10143 2.18-3.98 pg/mL Normal FREE T3 3.2 Performed By: #### L501.58806 #### [facility] [place], [address] ADRENOCORTICOTROPIC HORMONE Collected: Status: F Source: [place] 07/03/2017 9:59 AM [facility] [place] [place] REPOSITORY Order Comment: Has Patient had X-rays with Contrast this admission? N TYPE CODE TESTS RESULT OUT OF RANGE REFERENCE UNITS LAB L3300.1000 7.2-63.3 pg/mL Normal ACTH 4440 28.0 Result Comment: ACTH reference interval for samples collected between 7 and 10 AM. Performed By: #### L3300.1000, L3300.4450 #### [facility] (refer to report for specific site) refer to report for address and phone number ANDROSTENEDIONE Collected: 07/03/2017 Status: F Source: [place] 9:59 AM [facility] [place] [place] REPOSITORY Order Comment: Has Patient had X-rays with Contrast this admission? N TYPE CODE TESTS RESULT OUT OF RANGE REFERENCE UNITS LAB L3300.4450 41-262 ng/dL Normal ANDROSTEN 4705 242 Result Comment: This test was developed and its performance characteristics determined by [employer]. It has not been cleared or approved by the Food and Drug Administration. Performed at: [facility] Lab[address] [id number] Supervisor Brine: Dany White PhD, Phone: [phone] Performed at: [facility] Lab[address] [id number] Supervisor Brine: Mann Bolivar MD, Phone: [phone] Performed By: #### L3300.1000, L3300.4450 #### [facility] (refer to report for specific site) refer to report for address and phone number COMPREHENSIVE METABOLIC Collected: 06/21/2017 Status: F Source: [place] PROFIL 1:51 PM [facility] [place] [place] REPOSITORY Order Comment: PLEASE ADD THESE LABS TO LABS DRAWN 06/21/17 TYPE CODE TESTS RESULT OUT OF RANGE REFERENCE UNITS LAB L501.0100 74-106 mg/dL Normal GLU 85 Result Comment: Please note revised GLUCOSE reference range effective 2017. LAB L501.1000 7-18 mg/dL Normal BUN 13 LAB L501.1100 0.55-1.02 mg/dL Normal CREAT,SERUM 0.95 Result Comment: The validity of the calculated GFR AND GFRAA in patients over 70 years has not been determined. Clinical correlation is essential. LAB L501.1110 >60 mL/min Normal EST GFR 72 Result Comment: Non- GFR Calc LAB L501.1115 >60 mL/min Normal EST GFR - AA 87 Result Comment: GFR Calc LAB L501.1300 10-20 RATIO Normal BUN/CRE 13.7 LAB L501.1500 6.4-8.2 g/dL T Normal PROT 7.7 LAB L501.1800 3.2-5.0 g/dL Normal ALB 4.2 LAB L501.1950 2.2-4.2 g/dL Normal GLOB 3.5 LAB L501.2000 0.9-2.4 RATIO Normal A/G 1.2 LAB L501.2200 8.5-10.1 mg/dL CA Normal 8.6 LAB L501.4100 15-37 U/L Normal AST 28 LAB L501.4305 45-117 U/L Normal ALK P 70 LAB L501.4405 13-56 U/L Normal ALT 49 Result Comment: Please note revised ALT reference range effective 2017. LAB L501.4600 0.20-1.00 mg/dL Normal T BILI 0.40 LAB L501.5300 136-145 mmol/L Normal NA 139 LAB L501.5600 3.5-5.1 mmol/L Normal K 3.7 LAB L501.5900 98-107 mmol/L Normal CL 105 LAB L501.6100 21.0-32.0 mmol/L Normal CO2 27.0 LAB L501.6200 5-15 Normal GAP 7 Performed By: #### L500.4050, L501.9520, L506.0400, L3100.5125, L3100.5420, L3300.1750, L500.4100 #### [facility] Laboratory [address] [place], [place], [id number] THYROID STIM HORMONE Collected: 06/21/2017 Status: F Source: [place] (TSH) 1:51 PM [facility] [place] [place] REPOSITORY Order Comment: PLEASE ADD THESE LABS TO LABS DRAWN 06/21/17 TYPE CODE TESTS RESULT OUT OF RANGE REFERENCE UNITS LAB L501.9520 0.358-3.74 uIU/mL Normal TSH 2.52 Performed By: #### L500.4050, L501.9520, L506.0400, L3100.5125, L3100.5420, L3300.1750, L500.4100 #### [facility] Laboratory [address] [place], [address] T4 FREE DIRECT Collected: 06/21/2017 Status: F Source: [place] 1:51 PM [facility] [place] [place] REPOSITORY Order Comment: PLEASE ADD THESE LABS TO LABS DRAWN 06/21/17 TYPE CODE TESTS RESULT OUT OF RANGE REFERENCE UNITS LAB L506.0400 0.76-1.46 ng/dL Normal T4 FREE 0.81 DIRECT Performed By: #### L500.4050, L501.9520, L506.0400, L3100.5125, L3100.5420, L3300.1750, L500.4100 #### [facility] Laboratory [address] [place], [place], [id number] FOLLICLE STIMULATING Collected: 06/21/2017 Status: F Source: [place] HORMONE 1:51 PM [facility] [place] [place] REPOSITORY Order Comment: PLEASE ADD THESE LABS TO LABS DRAWN 06/21/17 TYPE CODE TESTS RESULT OUT OF RANGE REFERENCE UNITS LAB L3100.5125 mIU/mL Normal FSH 6.3 Result Comment: NORMAL REFERENCE RANGES FEMALE FOLLICULAR 2.3 - 12.6 mIU/mL MID-CYCLE PEAK 5.2 - 17.5 mIU/mL LUTEAL 1.7 - 12.9 mIU/mL POST-MENOPAUSAL ON MHT 5.9 - 72.8 mIU/mL NOT ON MHT 12.7 - 132.2 mlU/mL MALE 0.7 - 10.8 mIU/mL NEW TEST METHOD AND REFERENCE RANGES AUGUST 19, 2011 Performed By: #### L500.4050, L501.9520, L506.0400, L3100.5125, L3100.5420, L3300.1750, L500.4100 #### [facility] Laboratory [address] [place], [address] PROLACTIN Collected: 06/21/2017 Status: F Source: [place] 1:51 PM [facility] [place] [place] REPOSITORY Order Comment: PLEASE ADD THESE LABS TO LABS DRAWN 06/21/17 TYPE CODE TESTS RESULT OUT OF RANGE REFERENCE UNITS LAB L3100.5420 ng/mL Normal PROLACTIN 11.6 Result Comment: NORMAL REFERENCE RANGES FEMALE NON- 2.2 - 30.3 ng/mL 8.1 - 347.6 ng/mL POST-MENOPAUSAL 0.7 - 31.5 ng/mL MALE 2.5 - 17.4 ng/mL NEW TEST METHOD AND REFERENCE RANGES AUGUST 19, 2011 Performed By: #### L500.4050, L501.9520, L506.0400, L3100.5125, L3100.5420, L3300.1750, L500.4100 #### [facility] Laboratory [address] [place], [place], [address] ESTRADIOL Collected: 06/21/2017 Status: F Source: [place] 1:51 PM [facility] [place] [place] REPOSITORY Order Comment: PLEASE ADD THESE LABS TO LABS DRAWN 06/21/17 TYPE CODE TESTS RESULT OUT OF RANGE REFERENCE UNITS LAB L3300.1750 pg/mL Normal ESTRADIOL 23.6 Result Comment: NORMAL REFERENCE RANGES FEMALE FOLLICULAR 21.4 - 164.8 pg/mL MID-CYCLE PEAK 49.9 - 367.2 pg/mL LUTEAL 40.2 - 259.0 pg/mL POST-MENOPAUSAL ON MHT <11.0 - 462.1 pg/mL NOT ON MHT <11.0 - 58.3 pg/mL MALE <11.0 - 52.5 pg/mL NOTE: [facility] HAS CONFIRMED THE DRUG FULVETRANT (FASLODEX) MAY CAUSE FALSELY ELEVATED ESTRADIOL RESULTS WHEN USING THIS TEST METHOD. IF PATIENT IS TAKING FULVESTRANT AN ALTERNATIVE METHOD SHOULD BE USED TO DETERMINE ESTRADIOL CONCENTRATION. Performed By: #### L500.4050, L501.9520, L506.0400, L3100.5125, L3100.5420, L3300.1750, L500.4100 #### [facility] Laboratory [address] [place], [place], [id number] LIPID PROFILE Collected: 06/21/2017 Status: F Source: [place] 1:51 PM [facility] [place] [place] REPOSITORY Order Comment: PLEASE ADD THESE LABS TO LABS DRAWN 06/21/17 TYPE CODE TESTS RESULT OUT OF RANGE REFERENCE UNITS LAB L501.4900 200 mg/dL Normal CHOL 188 Result Comment: <200 mg/dL Desirable 200-240 mg/dL Borderline >240 mg/dL High Risk LAB L501.5000 mg/dL High TRIG 255 Result Comment: The drugs N-Acetylcysteine and Metamizole may falsely depress this assay. Serum Triglycerides Reference Interval Normal <150 mg/dL Borderline high 150 - 199 mg/dL High 200 - 499 mg/dL Very High > or = 500 mg/dL LAB L501.6400 mg/dL Low HDL 35 Result Comment: The drugs N-Acetylcysteine and Metamizole may falsely depress this assay. Reference Range HDL <40 mg/dL Low HDL Cholesterol HDL >or= 60 mg/dL High HDL Cholesterol LAB L501.6500 0-130 mg/dL Normal LDL 102 LAB L501.6600 5-40 mg/dL High VLDL 51 Performed By: #### L500.4050, L501.9520, L506.0400, L3100.5125, L3100.5420, L3300.1750, L500.4100 #### [facility] Laboratory [address] [place], [place], [address] SEX HORMONE-BINDING Collected: 06/21/2017 Status: F Source: [place] GLOBULIN 1:51 PM [facility] [place] [place] REPOSITORY Order Comment: Has Patient had Radioactive Injection for X-ray?: N TYPE CODE TESTS RESULT OUT OF RANGE REFERENCE UNITS LAB L3100.5060 24.6-122.0 nmol/L Normal SHBG 34.8 Result Comment: Performed at: - [facility] [id number] Supervisor Brine: Dany White PhD, Phone: [phone] Performed By: #### L3100.5060, L3300.1500 #### [facility] (refer to report for specific site) refer to report for address and phone number DHEA SULFATE Collected: 06/21/2017 Status: F Source: [place] 1:51 PM [facility] [place] [place] REPOSITORY Order Comment: Has Patient had Radioactive Injection for X-ray?: N TYPE CODE TESTS RESULT OUT OF RANGE REFERENCE UNITS LAB L3300.1500 84.8-378.0 ug/dL Normal DHEA SULF 106.6 4020 Performed By: #### L3100.5060, L3300.1500 #### [facility] (refer to report for specific site) refer to report for address and phone number TESTOSTERONE, SERUM TOTAL Collected: 06/21/2017 Status: F Source: [place] 1:51 PM [facility] [place] [place] REPOSITORY Order Comment: PLEASE ADD VITD TO LABS DRAWN 06/21/17 TYPE CODE TESTS RESULT OUT OF REFERENCE UNITS RANGE LAB L509.3000 ng/dL Testosterone Normal 18.05 Result Comment: NORMAL REFERENCE RANGES MALE AGE <50 123.06 - 813.86 ng/dL MALE AGE >50 89.98 - 780.10 ng/dL FEMALE PREMENOPAUSE AGE 21 - 60 9.01 - 47.94 ng/dL FEMALE POSTMENOPAUSE AGE 45 - 89 <7.00 - 45.62 ng/dL REFERENCE RANGE AND METHODOLOGY CHANGED 03/19/2017 Performed By: #### L509.3000, L509.6000, [id number], L506.1000 #### [facility] Laboratory [address] [facility] [place], [place], [id number] CORTISOL SERUM Collected: 06/21/2017 Status: F Source: [place] 1:51 PM [facility] [place] [place] REPOSITORY Order Comment: PLEASE ADD VITD TO LABS DRAWN 06/21/17 TYPE CODE TESTS RESULT OUT OF RANGE REFERENCE UNITS LAB L509.6000 3.09-22.40 ug/dL Normal CORTISOL 6.60 Result Comment: Adult (AM) 4.30 - 22.40 ug/dL Adult (PM) 3.09 - 16.66 ug/dL Performed By: #### L509.3000, L509.6000, [id number], L506.1000 #### [facility] [address] [facility] [place], [place], [address] INSULIN Collected: 06/21/2017 Status: F Source: [place] 1:51 PM [facility] [place] [place] REPOSITORY Order Comment: PLEASE ADD VITD TO LABS DRAWN 06/21/17 TYPE CODE TESTS RESULT OUT OF RANGE REFERENCE UNITS LAB [id number] 2.6-37.6 mU/L Normal Insulin 31.5 Result Comment: Please Note: INSULIN METHOD AND REFERENCE RANGE CHANGE Effective 04/10/2017. Performed By: #### L509.3000, L509.6000, [id number], L506.1000 #### [facility] Laboratory [address] [place], [address] VITAMIN D,25 HYDROXY Collected: 06/21/2017 Status: F Source: [place] 1:51 PM [facility] [place] [place] REPOSITORY Order Comment: PLEASE ADD VITD TO LABS DRAWN 06/21/17 TYPE CODE TESTS RESULT OUT OF RANGE REFERENCE UNITS LAB L506.1000 29.95-100.01 ng/mL Normal Vitamin D 45.8 25-OH Result Comment: Vitamin D 25(OH) Status Range Deficiency <20 ng/mL (50nmol/L) Insuffciency 20 - 30 ng/mL (50 - 75 nmol/L) Sufficiency 30 - 100 ng/mL (75 - 250 nmol/L) Toxicity >100 ng/mL (>250 nmol/L) Performed By: #### L509.3000, L509.6000, [id number], L506.1000 #### [facility] Laboratory [address] [place], [address] 17-HYDROXYPROGESTERONE Collected: Status: F Source: [place] 06/21/2017 1:51 PM [facility] [place] [place] REPOSITORY Order Comment: Has Patient had Radioactive Injection for X-ray?: N TYPE CODE TESTS RESULT OUT OF RANGE REFERENCE UNITS LAB L3100.9000 . ng/dL Normal HYDROXPROG 17 40 Result Comment: Adult Female Follicular 15 - 70 Luteal 35 - 290 This test was developed and its performance characteristics determined by [facility]. It has not been cleared or approved by the Food and Drug Administration. Performed at: [address] [id number] Supervisor Brine: Mann Bolivar MD, Phone: [phone] Performed By: #### L3100.9000 #### [facility] (refer to report for specific site) refer to report for address and phone number [facility], EMPLOYEE Collected: 06/18/2017 Status: F Source: [place] 8:59 AM [facility] [place] [place] REPOSIT[place] TYPE CODE TESTS RESULT OUT OF RANGE REFERENCE UNITS LAB L100.1000 4.4-11.0 K/mm3 Normal WBC 7.6 LAB L100.1200 4.2-5.4 M/mm3 Normal RBC 4.57 LAB L100.1300 12.0-15.0 g/dl Normal HGB 13.6 LAB L100.1400 37-47 % Normal HCT 40.6 LAB L100.1500 81-99 fL Normal MCV 88.8 LAB L100.1600 27.0-32.0 pg Normal MCH 29.8 LAB L100.1700 32-36 g/gl Normal MCHC 33.5 LAB L100.1810 11.6-14.6 % Normal RDW CV 12.7 LAB L100.1820 35.1-43.9 fl Normal RDW SD 40.2 LAB L100.1900 150-450 K/mm3 Normal PLT 237 LAB L100.2000 6.2-12.0 fl Normal MPV 10.6 LAB L100.2110 47-70 % Normal NEUT% 61.5 LAB L100.2210 19-41 % Normal LY% 29.1 LAB L100.2310 0-10 % Normal MONO% 6.4 LAB L100.2410 0-5 % Normal EO% 2.5 LAB L100.2510 0-1 % Normal BASO% 0.4 LAB L100.2620 2.0-7.7 X10 3/uL Normal Absolute Neut 4.7 LAB L100.2720 0.83-4.51 X10 3/ul Normal Absolute Lymph 2.21 Performed By: #### L100.0200 #### [facility] [address] [place], [place], [address] EMPLOYEE PROFILE Collected: 06/18/2017 Status: F Source: [place] 8:59 AM [facility] [place] [place] REPOSIT[place] TYPE CODE TESTS RESULT OUT OF RANGE REFERENCE UNITS LAB L501.0100 74-106 mg/dL Normal GLU 96 Result Comment: Please note revised GLUCOSE reference range effective 2017. LAB L501.1000 7-18 mg/dL Normal BUN 17 LAB L501.1100 0.55-1.02 mg/dL Normal CREAT,SERUM 0.65 Result Comment: The validity of the calculated GFR AND GFRAA in patients over 70 years has not been determined. Clinical correlation is essential. LAB L501.1110 >60 mL/min Normal EST GFR 111 Result Comment: Non- GFR Calc LAB L501.1115 >60 mL/min Normal EST GFR - AA 134 Result Comment: GFR Calc LAB L501.1300 10-20 RATIO High BUN/CRE 26.1 LAB L501.1400 2.6-6.0 mg/dL Normal URIC 4.9 Result Comment: The drugs N-Acetylcysteine and Metamizole may falsely depress this assay. LAB L501.1500 6.4-8.2 g/dL Normal T PROT 8.0 LAB L501.1800 3.2-5.0 g/dL Normal ALB 4.4 LAB L501.1950 2.2-4.2 g/dL Normal GLOB 3.6 LAB L501.2000 0.9-2.4 RATIO Normal A/G 1.2 LAB L501.2200 8.5-10.1 mg/dL Normal CA 9.0 LAB L501.2300 2.5-4.9 mg/dL Normal PHOS 3.7 LAB L501.4100 15-37 U/L Normal AST 28 LAB L501.4305 45-117 U/L Normal ALK P 67 LAB L501.4405 13-56 U/L Normal ALT 54 Result Comment: Please note revised ALT reference range effective 2017. LAB L501.4600 0.20-1.00 mg/dL Normal T BILI 0.50 LAB L501.4700 0.00-0.30 mg/dL Normal D BILI 0.12 LAB L501.4900 200 mg/dL Normal CHOL 181 Result Comment: <200 mg/dL Desirable 200-240 mg/dL Borderline >240 mg/dL High Risk LAB L501.5000 mg/dL Normal TRIG 164 Result Comment: The drugs N-Acetylcysteine and Metamizole may falsely depress this assay. Serum Triglycerides Reference Interval Normal <150 mg/dL Borderline high 150 - 199 mg/dL High 200 - 499 mg/dL Very High > or = 500 mg/dL LAB L501.5300 136-145 mmol/L Normal NA 138 LAB L501.5600 3.5-5.1 mmol/L Normal K 4.0 LAB L501.5900 98-107 mmol/L Normal CL 105 LAB L501.6100 21.0-32.0 mmol/L Normal CO2 26.0 LAB L501.6200 5-15 Normal 7 GAP LAB L501.6400 mg/dL Low HDL 37 Result Comment: The drugs N-Acetylcysteine and Metamizole may falsely depress this assay. Reference Range HDL <40 mg/dL Low HDL Cholesterol HDL >or= 60 mg/dL High HDL Cholesterol LAB L501.6475 Normal CHOL:HDL 4.90 LAB L501.6500 0-130 mg/dL Normal LDL 111 LAB L501.6600 5-40 mg/dL Normal VLDL 33 LAB L504.2610 84-246 U/L Normal LDH 149 Performed By: #### L500.2900 #### [facility] [address] [facility] [place], [place], [address] [employer], EMPLOYEE Collected: 06/18/2017 Status: F Source: [place] 8:59 AM [facility] [place] [place] REPOSIT[place] TYPE CODE TESTS RESULT OUT OF RANGE REFERENCE UNITS LAB L400.3000 Yellow COLOR Normal Yellow LAB L400.3050 Clear Normal CLARITY Clear LAB L400.3200 Normal mg/dl Normal GLUCOSE, UR Normal LAB L400.3300 Negative mg/dL Normal BILIRUBIN URINE Negative LAB L400.3400 Negative mg/dl Normal KETONE UR Negative LAB L400.3465 1.002-1.030 Normal SP.GR. DIPSTX 1.015 LAB L400.3550 5.0 - 8.0 pH UR Normal 6.0 LAB L400.3600 Negative mg/dl PROT Normal DIPSTX Negative LAB L400.3700 Normal mg/dl Normal UROBILI Normal LAB L400.3750 Negative Normal NITRITE UR Negative LAB L400.3780 Negative /ul High 25 OCCULT BLOOD-UR LAB L400.3800 Negative /ul LEUK Normal ESTERASE Negative Performed By: #### L400.0100 #### [facility] [address] [facility] [address] [place], [place], [address] NICOTINE URINE DRUG Collected: 06/18/2017 Status: F Source: [place] SCREEN 8:59 AM [facility] [place] [place] REPOS[place] TYPE CODE TESTS RESULT OUT OF RANGE REFERENCE UNITS LAB L505.6250 TO BE Normal CONFIRMED Result Comment: CONFIRMATORY TESTING FOR ALL POSITIVE URINE DRUG SCREEN RESULTS WILL ONLY BE SENT OUT UPON PHYSICIAN ORDER. The results of Urine Drug Screen methods provide only preliminary analytical test results. A more specific alternate chemical method must be used in order to obtain a confirmed analytical result. Gas chromatography/mass spectrometery (GC/MS) is the preferred confirmatory method. Clinical consideration and professional judgement should be applied to any drug of abuse test result, particularly when preliminary positive results are used. LAB L505.6270 <200 ng/mL Normal COT DRG Negative SCREEN Result Comment: Cotinine is the first-stage metabolite of Nicotine. Performed By: #### L505.6240 #### [facility] Laboratory [address] [place], [address] HCG TITER QUANT., Collected: 06/10/2017 Status: F Source: [place] SERUM 4:40 PM [facility] [place] [place] REPOSIT[place] TYPE CODE TESTS RESULT OUT OF RANGE REFERENCE UNITS LAB L700.8000 <9 non-preg mIU/mL Normal HCG < 1 QUANT. Performed By: #### L700.8000 #### [facility] [address] [place], [address] FREE T3 Collected: 06/10/2017 Status: F Source: [place] 4:40 PM [facility] [place] [place] REPOSIT[place] TYPE CODE TESTS RESULT OUT OF RANGE REFERENCE UNITS LAB L501.86551 2.18-3.98 pg/mL Normal FREE T3 2.8 Performed By: #### L501.39574, L501.9520, L506.0400 #### [facility] [address] [place], [address] THYROID STIM HORMONE Collected: 06/10/2017 Status: F Source: [place] (TSH) 4:40 PM [facility] [place] [place] REPOS[place] TYPE CODE TESTS RESULT OUT OF RANGE REFERENCE UNITS LAB L501.9520 0.358-3.74 uIU/mL Normal TSH 1.93 Performed By: #### L501.69976, L501.9520, L506.0400 #### [facility] [address] [place], [address] T4 FREE DIRECT Collected: 06/10/2017 Status: F Source: [place] 4:40 PM [facility] [place] [place] REPOS[place] TYPE CODE TESTS RESULT OUT OF REFERENCE UNITS RANGE LAB L506.0400 0.76-1.46 ng/dL Low T4 FREE 0.72 DIRECT Performed By: #### L501.06393, L501.9520, L506.0400 #### [facility] [place], [address] THYROID PEROXIDASE AB Collected: 06/10/2017 Status: F Source: [place] 4:40 PM [facility] [place] [place] RE[place] TYPE CODE TESTS RESULT OUT OF RANGE REFERENCE UNITS LAB L3300.6900 0-34 IU/mL Normal TPO AB 16 6676 Result Comment: Performed at: [address] [id number] Supervisor Brine: Dany White PhD, Phone: [phone] Performed By: #### L3300.6900, L3300.7027 #### [facility] (refer to report for specific site) refer to report for address and phone number THYROGLOBULIN ANTIBODY Collected: 06/10/2017 Status: F Source: [place] 4:40 PM [facility] [place] [place] REPOS[place] TYPE CODE TESTS RESULT OUT OF RANGE REFERENCE UNITS LAB L3300.7027 0.0-0.9 IU/mL Normal TG AB < 1.0 Result Comment: Thyroglobulin Antibody measured by Pilar [employer]or Methodology Performed By: #### L3300.6900, L3300.7027 #### [facility] (refer to report for specific site) refer to report for address and phone number PAP IG HPV 16/18,45 Collected: 06/10/2017 Status: F Source: [place] 4:30 PM [facility] [place] [place] REPOSITORY Order Comment: CYTOLOGY INFORMATION: - CLINICAL INFORMATION: - DATE LMP/MENOPAUSE: 05/28/17 LMP - COLLECTION VIAL: Thin Prep Vial - SENIOR ACCOUNT DIRECTOR SOURCE: CERVICAL/ENDOCERVICAL - COLLECTION TECHNIQUE: BRUSH/SPATULA Specimen Comment: [id number] Specimen Comment: No. of containers..01 ThinPrep Vial TYPE CODE TESTS RESULT OUT OF RANGE REFERENCE UNITS LAB L7400.0800 . Normal DIAGN Comment Result Comment: NEGATIVE FOR INTRAEPITHELIAL LESION AND MALIGNANCY. LAB L7400.0900 . Normal ADEQ Comment Result Comment: Satisfactory for evaluation. Endocervical and/or squamous metaplastic cells (endocervical component) are present. LAB L7400.1400 . Normal PERFORM Comment Result Comment: Claude Taylor, Transportation Program Director (ASCP) LAB L7400.2575 . Normal TEST METHOD Comment Result Comment: This liquid based ThinPrep(R) pap test was screened with the use of an image guided system. LAB L7400.2600 . Normal . COMM LAB L7400.2700 . Normal PAPSMR Comment Result Comment: The Pap smear is a screening test designed to aid in the detection of premalignant and malignant conditions of the uterine cervix. It is not a diagnostic procedure and should not be used as the sole means of detecting cervical cancer. Both false-positive and false-negative reports do occur. LAB L7400.2760 Negative Normal HPV APTIMA, Negative HR Result Comment: This test detects fourteen high-risk HPV types (16/18/31/33/35/39/45/ 51/52/56/58/59/66/68) without differentiation. Performed at: - [facility] [id number] Supervisor Brine: Litzy Delong MD, Phone: [phone] Performed at: = - [facility] [address] [id number] Supervisor Brine: Litzy Delong MD, Phone: [phone] Performed By: #### L7400.0280 #### [facility] (refer to report for specific site) refer to report for address and phone number HCG TITER QUANT., Collected: 05/02/2017 Status: F Source: [place] SERUM 4:54 PM [facility] [place] [place] REPOS[place]ORY TYPE CODE TESTS RESULT OUT OF RANGE REFERENCE UNITS LAB L700.8000 <9 non-preg mIU/mL Normal HCG < 1 QUANT. Performed By: #### L700.8000 #### [facility] [address] [place], [address] ,SERUM,HCG QUALI. Collected: Status: F Source: [place] 04/07/2017 12:12 PM [facility] [place] [place] REPOSITORY Order Comment: RUN QUANT IF POSITIVE Comments: RUN QUANT IF POSITIVE TYPE CODE TESTS RESULT OUT OF REFERENCE UNITS RANGE LAB L700.6700 =>Qualitative mIU/mL Normal HCG Qual < 1 triggr LAB L700.7000 0-9 Nonpreg Negative Normal HCGSQUAL NEGATIVE Performed By: #### L700.6800 #### [facility] [address] [place], [address] DISCHARGE SUMMARY Observed: 03/19/2017 Status: F Source: [place] 11:54 AM [facility] [place], [place] REPOSITORY [facility] Medical Records Department [address] [place] [address] Discharge Summary 03/19/17 1136 MR#: [id number] Acct: [id number] Name: KALA ONEILL Rep #: [id number] : 1985 31 From: Sulma Hauser PCP: Librado Ybarra DO Status: REG RCR Y Location: [facility] Therapy Discharge Summary: Discharge Date: 03/19/2017 Kala was seen for a massotherapy evaluation on 06/11/2016 with the diagnosis of right anterior shoulder tightness. She was treated with one session of massage consisting of deep pressure soft tissue techniques, myofascial release and trigger point compression to her neck, shoulders, thoracic, lower back and hips. Kala responded well to the therapy by reporting decreased tension and pain throughout her head, neck and lower back muscle groups. Her goals for therapy were met throughout the treatment sessions. At this time this patient is being discharged from our care at [facility] facility. 03/19/17 1154 <Electronically signed by Sulma Hauser > Date Sulma Hauser Cosigner Signature (if applicable): Date CC: Sulma Hauser; Librado Ybarra DO Signed ALLERGIES ALLERGIES DATE TYPE / CODE NAME / CODE REACTION SEVERITY SOURCE 01/07/2018 Drug citalopram Hives Unknown Siren Allergy/416 hydrobromide/R06426 [facility] 678331(SNOM 5107(RXNORM) Hospital ED CT) Repository 01/07/2018 Drug Penicillins/L223893 Hives Unknown Tyson Allergy/416 476(RXNORM) [facility] 939130([facility] ED CT) Repository 01/07/2018 Drug Influenza Virus Hives Unknown Siren Allergy/416 Vaccines/[id number] [facility] 825385[facility] 01/07/2018 Drug tetanus immune Hives Unknown Tyson Allergy/416 globulin/[id number] [facility] 269658[facility] 01/07/2018 Drug liraglutide/Q995926 Nausea/Vom/Fabi Unknown Siren Allergy/416 773(RXNORM) rrhea [facility] 240990([facility] ED CT) Repository 10/26/2015 Allergy/420 citalopram Hives Tyson 597760([facility] hydrobromide [facility] ED CT) Hospital Repository 10/26/2015 Allergy/420 Penicillins Hives Siren 594189([facility] ED CT) Hospital Repository 10/26/2015 Allergy/420 Influenza Virus Hives Tyson 200648([facility] Vaccines [facility] ED CT) Hospital Repository 10/26/2015 Allergy/420 tetanus immune Hives Tyson 479178([facility] globulin [facility] ED CT) Hospital Repository 10/26/2015 AdvReac/420 liraglutide Nausea/Vom/Fabi Tyson 459564([facility] rrhea [facility] ED CT) Hospital Repository ENCOUNTERS ENCOUNTERS ADMIT/DISCHARGE ACCOUNT ADMITTING ENCOUNTER LOCATION SOURCE NUMBER CLASS 03/17/2018 [id number] Ambulatory BMSBuilding:B [place] 8 [facility] Repository 02/27/2018 [id number] Ambulatory Tyson Tyson 7 [facility] ing:LABSPEC Repository 02/13/2018 [id number] Ambulatory Tyson Tyson 3 [facility] ing:LAB Repository 02/10/2018 [id number] Ambulatory Siren Tyson 5 [facility] ing:WOBLAB Repository 01/07/2018/ [id number] Emergency Siren Tyson 8 0 [facility] ing:ED Repository 01/01/2018 [id number] Ambulatory BMSBuilding:W Tyson 3 [facility] Repository 01/01/2018 [id number] Ambulatory Tyson Siren 6 [facility] ing:PSN Repository 11/02/2017 [id number] Ambulatory Siren Tyson 8 [facility] Repository 10/17/2017 [id number] Ambulatory Tyson Siren 5 [facility] ing:LAB.FUTUR Repository E 10/15/2017 [id number] Ambulatory Siren Siren 3 [facility] ing:US Repository 09/27/2017/ [id number] Emergency Tyson Siren 8 7 [facility] ing:ED Repository 09/13/2017 [id number] Ambulatory Tyson Tyson 4 [facility] ing:US Repository 09/10/2017 [id number] Ambulatory Siren Tyson 5 [facility] ing:PAVLAB Repository 09/09/2017 [id number] Ambulatory Tyson Tyson 6 [facility] ing:LABSPEC Repository 08/24/2017 [id number] Ambulatory Siren Siren 2 [facility] ing:LAB.FUTUR Repository E 08/22/2017 [id number] Ambulatory Siren Siren 5 [facility] ing:PAVLAB Repository 08/18/2017 [id number] Ambulatory Siren Siren 2 [facility] ing:PAVLAB Repository 08/15/2017 [id number] Ambulatory Siren Tyson 0 [facility] ing:WOBLAB Repository 07/09/2017 [id number] Ambulatory Tyson Tyson 5 [facility] ing:LAB.FUTUR Repository E 07/03/2017 [id number] Ambulatory Siren Tyson 3 [facility] ing:WOBLAB Repository 06/21/2017 [id number] Ambulatory Tyson Tyson 4 [facility] ing:LAB.FUTUR Repository E 06/18/2017 [id number] Ambulatory Siren Siren 1 [facility] ing:EMPH Repository 06/10/2017 [id number] Ambulatory Siren Siren 3 [facility] ing:LABSPEC Repository 05/02/2017 [id number] Ambulatory Siren Siren 8 [facility] ing:BFHLAB Repository 04/07/2017 [id number] Ambulatory Tyson Tyson 3 [facility] ing:LAB Repository 06/11/2016/ [id number] Ambulatory Siren Tyson 7 5 [facility] ing:MASS Repository PAYERS PAYERS ENCOUNTER GUARANTOR PAYER SUBSCRIBER SOURCE 03/17/2018 KALA Leonard Primary Insurance:[facility] KALA Mehta [id number] MUTUAL HEALTH KIPERDOB: [facility] 2104[place]23-[place] Number: Repository [address]Owm: 330 [id number] [phone] () Date:3142-41-10SJ [address] [address]ZW[place]YG, [place] [address]DA: CHECK WEBSITE 03/17/2018 Secondary NOT GIVENUNK Tyson Insurance:SELF PAY [facility] Number: Effective Repository Date:2018-03-17 02/27/2018 KALA Leonard Primary Insurance:[facility] KALA Mehta [id number] MUTUAL HE[employer] KIPERDOB: [facility] 4207-22-35RSES[place] Number: Repository [address]Wlc: 330 [id number] [phone] () Date:0068-75-54AZ [address] [address]YVMPGTUPM, [place] [address]IM: CHECK WEBSITE 02/27/2018 Secondary NOT GIVENUNK Siren Insurance:SELF PAY [facility] Number: Effective Repository Date:2018-02-27 02/13/2018 KALA Leonard Primary Insurance:[facility] KALA Mehta [id number] M[employer] HE[employer] KIPERDOB: [facility] 3828-77-94ICIScott [place] Number: Repository [address]Khc: 330 [id number] [phone] () Date:6163-74-99KT [address] [address]QJNRDALHP, [place] [address]AR: CHECK WEBSITE 02/13/2018 Secondary NOT GIVENUNK Siren Insurance:SELF PAY [facility] Number: Effective Repository Date:2018-02-10 02/10/2018 KALA Leonard Primary Insurance:[facility] KALA [id number] M[employer] HE[employer] KIPERDOB: [facility] 2964-65-63PRES[place] Number: Repository [address]Vby: 330 [id number] [phone] (HP) Date:2001-31-14TS [address] [address]LIBKXJEPQ, [place] [address]IT: CHECK WEBSITE 02/10/2018 Secondary NOT GIVENUNK Tyson Insurance:SELF PAY [facility] Number: Effective Repository Date:2018-02-10 01/07/2018 KALA Leonard Primary Insurance:[facility] KALA Leonard Tyson [id number] M[employer] KIPERDOB: [facility] 6556-17-77[place]PB[place] Number: Repository [address]Ise: 330 [id number] [phone] (HP) Date:5077-07-28HK [address] [address]QIBUAJFOV, [place] [address]PK: CHECK WEBSITE 01/07/2018 Secondary NOT GIVENUNK Tyson Insurance:SELF PAY [facility] Number: Effective Repository Date:2018-01-07 01/01/2018 KALA Leonard Primary Insurance:[facility] KALA Leonard Siren [id number] M[employer] KIPERDOB: [facility] 3193-30-13PBTScott [place], [place] Number: Repository [address]Eno: 330 [id number] [phone] (HP) Date:0817-69-13EE [address] [address]VQTEOPFAL, [place] [address]VE: CHECK WEBSITE 01/01/2018 Secondary NOT GIVENUNK Siren Insurance:SELF PAY [facility] Number: Effective Repository Date:2018-01-01 01/01/2018 KALA Leonard Primary Insurance:[facility] KALA Leonard Tyson [id number] M[employer] HE[employer] PERDOB: [facility] 9870-46-25UGY[place] Number: Repository [address]Szm: 330 [id number] [phone] (HP) Date:9958-81-20JT [address] [address]YUWLKNRZN, [place] [address]SC: CHECK WEBSITE 01/01/2018 Secondary NOT GIVENUNK Tyson Insurance:SELF PAY [facility] Number: Effective Repository Date:2018-01-01 11/02/2017 Kala Leonard Primary Insurance:[facility] Kala Mehta [id number] M[employer] KiperDOB: [facility] 1532-53-00SMAScott [place] Number: Repository [address]Cwd: 330 [id number] [phone] () Date:8035-70-39HM [address] [address]QZOXZJDHL, [place] [address]VB: CHECK WEBSITE 11/02/2017 Secondary NOT GIVENUNK Siren Insurance:SELF PAY [facility] Number: Effective Repository Date:2017-11-02 10/17/2017 Kala Leonard Primary Insurance:[facility] Kala Teixeiraoster [id number] [employer] KiperDOB: [facility] 9218-05-79GNYScott [place], [place] Number: Repository [address]Kfb: 330 [id number] [phone] () Date:8226-76-68RY [address] [address]SVOROIKBJ, [place] [address]PX: CHECK WEBSITE 10/17/2017 Secondary NOT GIVENUNK Tyson Insurance:SELF PAY [facility] Number: Effective Repository Date:2017-10-10 10/15/2017 Kala Leonard Primary Insurance:[facility] Kala Mehta [id number] M[employer] KiperDOB: [facility] 6074-52-18VXDScott [place], [place] Number: Repository [address]Yaj: 330 [id number] [phone] () Date:0973-59-76MC [address] [address]CFGIHEQZK, [place] [address]AC: CHECK WEBSITE 10/15/2017 Secondary NOT GIVENUNK Siren Insurance:SELF PAY [facility] Number: Effective Repository Date:2017-10-14 09/27/2017 Kala Leonard Primary Insurance:[facility] Kala Mehta [id number] [employer] KiperDOB: [facility] 9535-98-97CKMScott [place], [place] Number: Repository [address]Iik: (330 [id number] [phone] (HP) Date:5762-93-66QB [address] [address]JLLXDGYXE, [place] [address]CM: CHECK WEBSITE 09/27/2017 Secondary NOT GIVENUNK Siren Insurance:SELF PAY [facility] Effective Repository Date:2017-09-27 09/13/2017 Kala Leonard Primary Insurance:[facility] Kala Kamaraper1598 [facility] KiperDOB: [facility] 1175-81-38LXZScott [place], [place] Number: Repository [address]Qhr: 330 [id number] [phone] (HP) Date:6901-11-18FG [address] [address]VKSOPENMX, [place] [address]UP: CHECK WEBSITE 09/13/2017 Secondary NOT GIVENUNK Tyson Insurance:SELF PAY [facility] Number: Effective Repository Date:2017-09-10 09/10/2017 Kala Leonard Primary Insurance:[facility] Kala Kamaraper1598 [facility] KiperDOB: [facility] 5473-64-42ZNKScott [place], [place] Number: Repository [address]Flc: 330 [id number] [phone] (HP) Date:9980-50-19IM [address] [address]OTVEONDMH, [place] [address]PA: CHECK WEBSITE 09/10/2017 Secondary NOT GIVENUNK Siren Insurance:SELF PAY [facility] Number: Effective Repository Date:2017-09-10 09/09/2017 Kala Leonard Primary Insurance:[facility] Kala Mehta [id number] [facility] [address] 7976-45-96PLTScott [place], [place] Number: Repository [address]Phe: 330 [id number] [phone] (HP) Date:3592-36-59TS [address] [address]VELEOWTQR, [place] [address]DK: CHECK WEBSITE 09/09/2017 Secondary NOT GIVENUNK Tyson Insurance:SELF PAY [facility] Number: Effective Repository Date:2017-09-09 08/24/2017 Kala Leonard Primary Insurance:[facility] Kala Mehta [id number] [employer] KiperDOB: [facility] 4445-44-99QXYScott [place], [place] Number: Repository [address]Gbv: 330 [id number] [phone] (HP) Date:3938-22-52UG [address] [address]OPGAHQHZB, [place] [address]AF: CHECK WEBSITE 08/24/2017 Secondary NOT GIVENUNK Tyson Insurance:SELF PAY [facility] Number: Effective Repository Date:2017-08-22 08/22/2017 Kala K Primary Insurance:[facility] Kala Mehta [id number] [employer] KiperDOB: [facility] 2673-97-81OOTScott [place], [place] Number: Repository [address]Dje: 330 [id number] [phone] (HP) Date:4230-12-50IQ [address] [address]QDWDUWTTG, [place] [address]YT: CHECK WEBSITE 08/22/2017 Secondary NOT GIVENUNK Siren Insurance:SELF PAY [facility] Number: Effective Repository Date:2017-08-22 08/18/2017 Kala K Primary Insurance:[facility] Kala Mehta [id number] [facility] KiperDOB: [facility] 6912-94-16SNOScott [place] Number: Repository [address]Yxp: 330 [id number] [phone] (HP) Date:7978-11-57IM [address] [address]OHBPGFTUL, [place] [address]WI: CHECK WEBSITE 08/18/2017 Secondary NOT GIVENUNK Tyson Insurance:SELF PAY [facility] Number: Effective Repository Date:2017-08-18 08/15/2017 Kala K Primary Insurance:[facility] Kala Mehta [id number] [facility] KiperDOB: [facility] 1763-43-71AMGScott [place], [place] Number: Repository [address]Aaw: 330 [id number] [phone] (HP) Date:6142-08-28SZ [address] [address]SFRUIALMA, [place] [address]ET: CHECK WEBSITE 08/15/2017 Secondary NOT GIVENUNK Tyson Insurance:SELF PAY [facility] Number: Effective Repository Date:2017-08-15 07/09/2017 Kala K Primary Insurance:[facility] Kala Leonard Tyson [id number] [facility] KiperDOB: [facility] 6880-14-82XKIScott [place], [place] Number: Repository [address]Toe: 330 [id number] [phone] () Date:9934-96-48BT [address] [address]CJWWMHZPR, [place] [address]VM: CHECK WEBSITE 07/09/2017 Secondary NOT GIVENUNK Siren Insurance:SELF PAY [facility] Number: Effective Repository Date:2017-07-03 07/03/2017 Kala K Primary Insurance:[facility] Kala Leonard Siren [id number] [facility] KiperDOB: [facility] 4066-51-54ACMScott [place] Number: Repository [address]Saw: 330 [id number] [phone] () Date:8308-32-86PT [address] [address]XYEPCEALJ, [place] [address]KM: CHECK WEBSITE 07/03/2017 Secondary NOT GIVENUNK Siren Insurance:SELF PAY [facility] Number: Effective Repository Date:2017-07-03 06/21/2017 Kala K Primary Insurance:[facility] Kala Leonard Tyson [id number] [facility] KiperDOB: [facility] 6746-64-69GWWScott [place] Number: Repository [address]Tii: 330 [id number] [phone] () Date:5638-19-96KM [address] [address]MJRNHRCKO, [place] [address]IA: CHECK WEBSITE 06/21/2017 Secondary NOT GIVENUNK Tyson Insurance:SELF PAY [facility] Number: Effective Repository Date:2017-06-17 06/18/2017 Kala K Primary NOT GIVENUNK Tyson [id number] Insurance:SELF PAY [place] Number: Effective Repository [address]Sad: (330) Date:2017-06-18 [phone] () 06/10/2017 Kala Leonard Primary Insurance:[facility] Kala Mehta [id number] [employer] KiperDOB: [facility] 6893-17-53TXRScott [place], [place] Number: Repository [address]Wjc: 330 [id number] [phone] () Date:3911-90-23AU [address] [address]YBTJUCMDK, [place] [address]YX: CHECK WEBSITE 06/10/2017 Secondary NOT GIVENUNK Siren Insurance:SELF PAY [facility] Number: Effective Repository Date:2017-06-10 05/02/2017 Kala Leonard Primary Insurance:[facility] Kala Teixeiraoster [id number] [employer] KiperDOB: [facility] 8524-20-17VYVScott [place], [place] Number: Repository [address]Qbe: 330 [id number] [phone] () Date:4802-87-65QA [address] [address]MTEJPFMXS, [place] [address]XB: CHECK WEBSITE 05/02/2017 Secondary NOT GIVENUNK Siren Insurance:SELF PAY [facility] Number: Effective Repository Date:2017-05-02 04/07/2017 Kala Leonard Primary Insurance:[facility] Kala Teixeiraoster [id number] [employer] KiperDOB: [facility] 3862-60-40CYX[place], [place] Number: Repository [address]Fdy: (330 [id number] [phone] () Date:4738-72-97WS [address] [address]YQYGTZJQP, [place] [address]UO: CHECK WEBSITE 04/07/2017 Secondary NOT GIVENUNK Siren Insurance:SELF PAY [facility] Number: Effective Repository Date:2017-04-07 06/11/2016 KALA Leonard Primary Insurance:[facility] KALA Leonard Tyson [id number] [employer] KIPERDOB: [facility] 6026-00-47WLUScott [place] Number: Repository [address]Vlq: (330 [id number] [phone] () Date:2016-03-31
== END ==
PROVIDERS: Visit Provider Obstetrics & Gynecology
DX: N39.0 Urinary tract infection, site not specified (principal); R39.15 Urgency of urination
CPT/HCPCS: 87086

== ENCOUNTER → 2018-03-19 14:59 | Outpatient (CLI) | payer OTHER, SELFPAY ==
[2018-03-18 11:32] VITALS: BMI 38.0
--- NOTE | 2018-03-19 15:01 | ECHOD_ITS ---
Reason For Study: ARRHYTHMIA Procedure This was a 2D Doppler, Color Flow transthoracic echocardiogram. Exam performed in department. Left Ventricle Normal LV size. Left ventricular systolic function is normal. The estimated ejection fraction is 60 %. No regional wall motion abnormalities noted. Right Ventricle Normal RV size. Normal systolic function. Atria Normal left atrium. Normal right atrium. Mitral Valve Normal mitral valve. Tricuspid Valve Normal tricuspid valve. Trivial tricuspid valve insufficiency. Aortic Valve Normal aortic valve. Pulmonic Valve Normal pulmonic valve. Great Vessels Normal aortic root. The pulmonary artery is normal size. Normal inferior vena cava. Pericardium/Pleural No pericardial effusion. MMode/2D Measurements & Calculations LVIDd: 4.8 cm IVSd: 1.1 cm Ao root diam: 2.7 cm LVIDs: 3.3 cm LVPWd: 1.2 cm RVDd: 3.5 cm FS: 31.9 % LAV(MOD-bp): 51.0 ml LA A4 area: 17.8 cm2 LA dimension(2D): 4.3 cm LAV(MOD-bp) Indexed: 25.0 ml/m2 LAV(MOD-sp2): 49.3 ml LAV(MOD-sp4): 49.3 ml RA A4 area: 15.0 cm2 Time Measurements MV dec time: 0.17 sec Doppler Measurements & Calculations MV E max herve: 72.5 cm/sec Lat Peak E' Herve: 12.5 cm/sec Med Peak E' Herve: 13.1 cm/sec MV A max herve: 58.6 cm/sec E/E' lat: 5.8 E/E' med: 5.5 MV E/A: 1.2 Ao V2 max: 139.0 cm/sec LV V1 max: 106.0 cm/sec PA V2 max: 95.8 cm/sec Ao max P.7 mmHg LV V1 max P.5 mmHg Interpretation Summary Normal LV size. Left ventricular systolic function is normal. The estimated ejection fraction is 60 %. Structurally normal valves. Ordering Physician: Vahe Antoine Referring Physician: Tanesha Yanes Performed By: Cheyenne Cobos, RODRIGUEZ, RVT
== END ==
PROVIDERS: Family Provider Family Medicine; PCP Family Medicine; Referring Provider Internal Medicine Cardiovascular Disease; Visit Provider Internal Medicine Cardiovascular Disease
DX: R00.0 Tachycardia, unspecified (principal)
CPT/HCPCS: 93306

== ENCOUNTER → 2018-03-20 12:20 | Outpatient (CLI) | payer OTHER, SELFPAY ==
[2018-03-18 11:32] VITALS: BMI 38.0
[2018-03-20 12:35] LABS: Hematocrit 34.4 % (37-47); Hemoglobin 11.5 g/dl (12.0-15.0); Mean Corp Hgb Conc 33.4 g/gl (32-36); Mean Corpuscular Volume 83.9 fL (81-99); Platelet Count 197 K/mm3 (150-450); RBC Distribution Width CV 13.9 % (11.6-14.6); RBC Distribution Width SD 42.3 fl (35.1-43.9); White Blood Count 10.4 K/mm3 (4.4-11.0)
[2018-03-20 12:37] LABS: Scan Indicated on CBC? Y/N NO
[2018-03-20 12:44] LABS: Prothrombin Time (Protime)PT. 13.4 SECONDS (11.7-14.9)
[2018-03-20 12:48] LABS: ALB/GLOB Ratio 0.8 RATIO (0.9-2.4); AST(SGOT) 13 U/L (15-37); Alanine Aminotransfer ALT/SGPT 21 U/L (13-56); Albumin, Serum 3.2 g/dL (3.2-5.0); Alkaline Phosphatase 122 U/L (45-117); Anion Gap 10 (5-15); BUN 6 mg/dL (7-18); BUN/Creat Ratio 13.6 RATIO (10-20); Calcium,Total 8.9 mg/dL (8.5-10.1); Chloride 105 mmol/L (98-107); Creatinine, Serum 0.44 mg/dL (0.55-1.02); EST Glomerular Filtration Rate 173 mL/min (>60); Est Glom Filt Rate - Afr Amer 209 mL/min (>60); Globulin 3.9 g/dL (2.2-4.2); Glucose 102 mg/dL (74-106); Potassium 3.8 mmol/L (3.5-5.1); Protein, Total 7.1 g/dL (6.4-8.2); Sodium Level 137 mmol/L (136-145); Uric Acid 2.5 mg/dL (2.6-6.0)
[2018-03-20 16:05] LABS: Protein, Urine (Random) 11.6 mg/dL (<11.9)
== END ==
PROVIDERS: Family Provider Family Medicine; PCP Family Medicine; Referring Provider Obstetrics & Gynecology; Visit Provider Obstetrics & Gynecology
DX: O99.353 Diseases of the nervous system complicating pregnancy, third trimester (principal); G44.209 Tension-type headache, unspecified, not intractable; Z3A.00 Weeks of gestation of pregnancy not specified
CPT/HCPCS: 36415; 80053; 82570; 84156; 84550; 85027; 85610; 85730

== ENCOUNTER → 2018-03-30 16:30 | Outpatient (CLI) | payer OTHER, SELFPAY ==
[2018-03-18 11:32] VITALS: BMI 38.0
[2018-03-30 17:23] LABS: Hematocrit 32.5 % (37-47); Hemoglobin 11.1 g/dl (12.0-15.0); Mean Corp Hgb Conc 34.2 g/gl (32-36); Mean Corpuscular Hgb 28.5 pg (27.0-32.0); Mean Corpuscular Volume 83.3 fL (81-99); Mean Platelet Vol. 10.9 fl (6.2-12.0); Platelet Count 210 K/mm3 (150-450); RBC Distribution Width CV 13.6 % (11.6-14.6); White Blood Count 10.2 K/mm3 (4.4-11.0)
[2018-03-30 17:31] LABS: Scan Indicated on CBC? Y/N NO
[2018-03-30 17:38] LABS: ALB/GLOB Ratio 0.9 RATIO (0.9-2.4); AST(SGOT) 14 U/L (15-37); Alanine Aminotransfer ALT/SGPT 18 U/L (13-56); Albumin, Serum 3.1 g/dL (3.2-5.0); Alkaline Phosphatase 124 U/L (45-117); Anion Gap 14 (5-15); BUN 8 mg/dL (7-18); BUN/Creat Ratio 22.3 RATIO (10-20); Calcium,Total 8.9 mg/dL (8.5-10.1); Chloride 105 mmol/L (98-107); Creatinine, Serum 0.36 mg/dL (0.55-1.02); EST Glomerular Filtration Rate 220 mL/min (>60); Est Glom Filt Rate - Afr Amer 267 mL/min (>60); Globulin 3.6 g/dL (2.2-4.2); Glucose 74 mg/dL (74-106); Potassium 3.6 mmol/L (3.5-5.1); Protein, Total 6.7 g/dL (6.4-8.2); Sodium Level 138 mmol/L (136-145); Uric Acid 3.3 mg/dL (2.6-6.0)
== END ==
PROVIDERS: Visit Provider Obstetrics & Gynecology
DX: Z36.85 Encounter for antenatal screening for Streptococcus B (principal); O13.9 Gestational [pregnancy-induced] hypertension without significant proteinuria, unspecified trimester; Z3A.00 Weeks of gestation of pregnancy not specified
CPT/HCPCS: 36415; 80053; 84550; 85027; 87081

== ENCOUNTER → 2018-04-01 08:03 | Outpatient (CLI) | payer OTHER, SELFPAY ==
[2018-03-18 11:32] VITALS: BMI 38.0
[2018-04-01 08:46] LABS: 24 Hour Urine Protein 210.6 mg/24HR (<150 MG/24HR); 24HR. UA Prot. Total Volume 2700 mL; 24HR. Urine Creatinine 1.57 g/24 HR (0.70-1.90); Urine Protein (24 Hour) 7.8 mg/dL (<11.9)
== END ==
PROVIDERS: PCP Family Medicine; Visit Provider Obstetrics & Gynecology
DX: O13.9 Gestational [pregnancy-induced] hypertension without significant proteinuria, unspecified trimester (principal); Z3A.00 Weeks of gestation of pregnancy not specified
CPT/HCPCS: 81050; 82570; 84156

== ENCOUNTER 2018-04-30 19:05 | Inpatient (IN) | payer OTHER, SELFPAY ==
[2018-03-18 11:32] VITALS: BMI 38.0
[2018-04-30 20:01] VITALS: BMI 40.5
[2018-04-30] MEDS: 0.9% Saline Lock 10 ML Syringe IV (20:36)
[2018-04-30] MEDS: Lactated Ringers 1,000 ML 50 ML IV (20:36)
[2018-04-30 20:48] LABS: Hematocrit 34.8 % (37-47); Hemoglobin 11.5 g/dl (12.0-15.0); Mean Corpuscular Hgb 27.2 pg (27.0-32.0); Mean Corpuscular Volume 82.3 fL (81-99); Mean Platelet Vol. 10.8 fl (6.2-12.0); Platelet Count 191 K/mm3 (150-450); RBC Distribution Width CV 14.9 % (11.6-14.6); RBC Distribution Width SD 44.2 fl (35.1-43.9); Red Blood Count 4.23 M/mm3 (4.2-5.4); Scan Indicated on CBC? Y/N NO; White Blood Count 11.6 K/mm3 (4.4-11.0)
[2018-04-30] MEDS: miSOPROStol 25 MCG TABLET PO (20:51)
--- NOTE | 2018-05-01 05:41 | PCM.PN.BLA ---
Progress Note LABOR PROGRESS NOTE No complaints. Contractions are infrequent. AVSS GEN - NAD, AAO x 3 TOCO irritability FHR 120, moderate variability, + accelerations, no decelerations SVE 2/50/-3, midposition and moderate A/P: 22yo G1 @ 39 5/7wga, IOL for polyhydramnios, Cat I FHR -Plan for de la cruz bulb placement -Maternal and statuses reassuring
[2018-05-01] MEDS: Levothyroxine 50 MCG Tablet PO (06:43)
[2018-05-01] MEDS: 0.9% Normal Saline 100 ML IV.SOLN. INTRA-UTER (06:43)
--- NOTE | 2018-05-01 06:43 | PCM.PN.BLA ---
Progress Note LABOR PROGRESS NOTE Notes contractions picked up following exam. AVSS GEN - NAD, AAO x 3 FHR 120, moderate variability, + accelerations, no decelerations however some loss of contact TOCO 3-4/10 min SVE unchanged from prior 50/-3 A/P: 32yo G1 @ 39 5/7wga with polyhydramnios -Nobles bulb placed with 30cc NS, pt tolerated well. -Will monitor, if no significant contractions in 1 hour will start pitocin. Pt in agreement with plan.
[2018-05-01] MEDS: Oxytocin 30 units/NS 500 ml 30 UNITS/500 ML IV.SOLN IV (09:10)
--- NOTE | 2018-05-01 11:30 | PCM.PN.BLA ---
Progress Note LABOR PROGRESS NOTE Sulma reports contractions are regular and tolerable. +FM, no complaints. AVSS GEN - NAD, AAO x 3 SVE 4/50/-3 TOCO 4/10min FHR 120, moderate variability, + accelerations, no decelerations A/P: 32yo G1 @ 39 5/7wga, IOL for polyhydramnios, Cat I FHR -Amniotomy performed with blood tinged fluid -IUPC, ISE placed -Will continue pitocin as tolerated by mother and fetus
[2018-05-01] MEDS: Lactated Ringers 1,000 ML 50 ML IV ×2 (12:01→14:28)
[2018-05-01] MEDS: fentaNYL-bupivacaine (epidural) 100 ML BAG EPIDURAL ×2 (12:35→17:55)
[2018-05-01] MEDS: Pantoprazole Sodium 20 MG Tablet PO (13:10)
[2018-05-01] MEDS: Acetaminophen 325 MG Tablet PO ×2 (13:10→21:00)
--- NOTE | 2018-05-01 17:45 | PCM.PN.BLA ---
Progress Note LABOR PROGRESS NOTE Comfortable with epidural. AVSS GEN - NAD, AAO x 3 FHR 120, moderate variability, + accelerations, nodecelerations TOCO 3/10 min SVE 5/70/-3, moderate and midposition A/P: 32yo G1 @ 39 5/7wga, IOL for polyhydramnios, Cat I FHR -Will continue pitocin as tolerated by mother and fetus
[2018-05-01] MEDS: Dextrose 5%-Lactated Ringers 1,000 ML 200 ML IV (18:38)
[2018-05-01] MEDS: Loratadine 10 MG Tablet PO (22:28)
[2018-05-01] MEDS: Sertraline 50 MG Tablet 100 MG PO (22:28)
[2018-05-01] MEDS: Ondansetron 4 MG/2 ML Vial IV (23:05)
[2018-05-02] VITALS (18 sets, daily range): BP systolic 112–144; BP diastolic 56–93; PULSE 87–122; RESP 12–33; TEMP 36.1–37.1; O2SAT 94–100
[2018-05-02] MEDS: Dextrose 5%-Lactated Ringers 1,000 ML 200 ML IV ×2 (00:14→05:07)
[2018-05-02] MEDS: fentaNYL-bupivacaine (epidural) 100 ML BAG EPIDURAL ×2 (00:17→08:17)
[2018-05-02] MEDS: Levothyroxine 50 MCG Tablet PO (06:55)
[2018-05-02] MEDS: Sodium Citrate/Citric Acid 30 ML UDC PO (08:48)
[2018-05-02] MEDS: Cefazolin 2 GM in 0.9% Normal Saline 100 ML IV (09:10)
[2018-05-02] MEDS: Oxytocin 30 units/NS 500 ml 30 UNITS/500 ML IV.SOLN 167 UNITS IV (09:20)
[2018-05-02] MEDS: Methylergonovine 0.2 MG/ML Ampul IM (09:22)
--- NOTE | 2018-05-02 10:01 | PCM.OPRPT ---
Report of Operation Date of Procedure: 05/02/18 Pre-Operative Diagnosis: Polyhydramnios, Failure to Progress Post-Operative Diagnosis: Polyhydramnios, Failure to Progress, Cephalopelvic Disproportion Surgery/Procedure Performed:: Primary Low Transverse Cervical Section Description of Surgical Findings:: Viable male with Apgars of 8/9 and an occiput anterior presentation with clear amniotic fluid and normal three-vessel placenta. Asynclitism noted and head in high position at time of delivery. electronics research engineer: Frances Wei electronics research engineer: Paul Antunez Type of Anesthesia:: Epidural - with Duramorph Anesthesiologist: Edmar Nichole Specimen's removed: None Drains: Nobles to straight drain Estimated Blood Loss (mL): 500 cc Fluids Replaced: Crystalloid Description of Procedure: Surgeon: Jack Leung MD, FACOG Indication: This is a 32-year-old who presents for her first at 39+ weeks gestation. Patient was induced with Cytotec followed by a Nobles catheter being placed. Cytotec induction began nearly 36 hours ago and rupture of membranes after Nobles catheter was approximately 24 hours ago. Intrauterine pressure catheter has documented adequate contractions and the cervix has been dilated and remains at approximately 5 cm for more than 12 hours and about 70% effacement. Station still remains at -2. heart tones throughout have been reactive and no maternal elevation of temperature has been noted. care has otherwise been uneventful except for recent polyhydramnios. We discussed the failure to progress with the patient and her and decided section was best course of action at this point. The patient has been counseled regarding the risk and indications of this procedure including the possibility of bleeding infection and injury to surrounding structures such as bowel bladder. All questions were answered. Procedure: Patient was taken to the operating room where after the epidural was redosed, the patient was prepped and draped in usual sterile fashion. A Nobles catheter had been previously placed. The abdomen was entered through a Pfannenstiel incision and peritoneum was entered bluntly. After developing a bladder flap on the lower uterine segment a low transverse incision was made on the uterus and head was easily delivered onto the operative field the nose mouth and oropharynx were bulb suctioned. Subsequently a viable male was born with Apgars of 8/9. The infant was noted to cry move all extremities vigorously on the operative field. The umbilical cord was doubly clamped and ligated and infant handed to the nursery personnel who were present for the delivery. Placenta was delivered and noted to be 3 vessels and normal. Uterus was exteriorized and remaining placental tissue was removed. The uterus was then closed in 2 layers first with running locked 0 Vicryl suture followed by a second imbricating layer with 0 Vicryl suture. 0 Vicryl suture was then used in a horizontal mattress interrupted fashion to affect final hemostasis of the uterine incision line. Normal fallopian tubes and ovaries were visualized and the uterus was returned to the pelvis. Hemostasis was noted and rectus abdominis muscles were reapproximated in the midline with interrupted Number 0 Vicryl suture in a horizontal mattress fashion. Fascia was closed with running Number 1 PDS Strata fix suture. Subcutaneous tissue was irrigated with copious amouts of saline solution and then closed with running 3-0 Vicryl suture in 2 layers. Skin was closed with 4-0 monocryl suture in a running subcuticular fashion. Steri strips, telfa, and tape were placed across the incision. The patient tolerated the procedure well and was taken to the recovery room in satisfactory condition. Sponge, needle, and instrument counts were all reportedly correct. EBL was less than 500 cc. Ancef 2 gms IV was given prior to the procedure. Spicemen to Pathology: None Grafts/Implants Used: None - Complications None - Admit VTE Documentation VTE Present on Admission: Yes VTE Mechan Device Prophylaxis: SCD's VTE Pharm Prophylaxis ordered?: Yes
--- NOTE | 2018-05-02 10:11 | PCM.DCCSEC ---
Discharge Diet: No Restrictions Discharge Activity: May not drive while taking narcotic pain medications., May Shower, May Take a Tub Bath May resume sexual activity in: 4-6 weeks Lifting Restrictions: 20 pounds Additional Activity Instructions:: Nothing in the vagina for 4-6 weeks. You may return to work/school in 6 weeks. Call your doctor if your incision/area has: Continuous Slow Oozing, Sudden Increased Bleeding, Increased Pain/ Swelling, Increased Redness, Foul Smelling Discharge Call your doctor if you observe: Fever of 101 or Higher, Inability to urinate, Inability to have a bowel movement, Using more than one pad per hour Additional Instructions: If you experience any of the following, contact your healthcare provider. Bleeding that soaks a pad every hour for 2 hours Unrelieved incision or abdominal pain Swelling, redness, discharge or bleeding from your incision or episiotomy site Your incision begins to separate Problems urinating (including inability to urinate or burning while urinating). Visual changes Severe headache Flu-like symptoms Pain or redness in one of both of your breasts Pain, warmth, tenderness or swelling in your legs, especially the calf area Frequent nausea and vomiting Symptoms of depression or anxiety If you experience any of the following, call 911 or go to the nearest Emergency Room. Chest pain Problems breathing Seizure activity Partial or complete paralysis of a body part, slurred speech, weakness or drooping of the face, or a sudden inability to walk or hold your balance Allergies/Adverse Reactions: Allergies citalopram hydrobromide [From Celexa] Allergy (Verified 03/18/18 11:28) Hives Penicillins [PCN] Allergy (Verified 03/18/18 11:28) Hives tetanus immune globulin Allergy (Verified 03/18/18 11:28) Hives liraglutide [From Victoza] Adverse Reaction (Verified 03/18/18 11:28) Nausea/Vom/Diarrhea Medications to take at Discharge Omeprazole [Prilosec] 20 mg PO DAILY 10/26/15 Levothyroxine [Synthroid] 50 mcg PO DAILY 09/27/17 Ondansetron [Zofran Odt] 4 mg PO Q8H PRN PRN #14 tab 09/27/17 Pnv No.103/Folic/Om3s/Fish Oil [ Gummies] 2 ea PO DAILY 09/27/17 Sertraline HCl [Zoloft] 50 mg PO DAILY 09/27/17 aspirin 81 mg tablet,delayed release 81 mg PO DAILY 03/18/18 dwaehls-ypxmievnh-[id number] tablet 1 tab PO DAILY tab 03/18/18 loratadine 10 mg capsule 10 mg PO DAILY 03/18/18 Docusate Sodium [Colace] 100 mg PO BID PRN PRN #60 cap 05/02/18 Oxycodone [Oxyir] 5 mg PO Q6H PRN PRN 7 Days #20 tab 05/02/18 Follow-Up: Call to make an appointment with your doctor for an incision check in 1-2 weeks. You will also need a 6 week post- follow up appointment. Test results from this visit will be discussed in further detail at your follow-up appointment, if applicable. Please Follow Up With: Jack Leung MD - [phone] When: Call to make an appointment for an incision check in 2 weeks. Primary Care Physician: Librado Ybarra DO [Primary Care Provider] -
--- NOTE | 2018-05-02 10:35 | DCINST_ITS ---
Discharge Diet: No Restrictions Discharge Activity: May not drive while taking narcotic pain medications., May Shower, May Take a Tub Bath May resume sexual activity in: 4-6 weeks Lifting Restrictions: 20 pounds Additional Activity Instructions:: Nothing in the vagina for 4-6 weeks. You may return to work/school in 6 weeks. Call your doctor if your incision/area has: Continuous Slow Oozing, Sudden Increased Bleeding, Increased Pain/ Swelling, Increased Redness, Foul Smelling Discharge Call your doctor if you observe: Fever of 101 or Higher, Inability to urinate, Inability to have a bowel movement, Using more than one pad per hour Additional Instructions: If you experience any of the following, contact your healthcare provider. * Bleeding that soaks a pad every hour for 2 hours * Unrelieved incision or abdominal pain * Swelling, redness, discharge or bleeding from your incision or episiotomy site * Your incision begins to separate * Problems urinating (including inability to urinate or burning while urinating). * Visual changes * Severe headache * Flu-like symptoms * Pain or redness in one of both of your breasts * Pain, warmth, tenderness or swelling in your legs, especially the calf area * Frequent nausea and vomiting * Symptoms of depression or anxiety If you experience any of the following, call 911 or go to the nearest Emergency Room. * Chest pain * Problems breathing * Seizure activity * Partial or complete paralysis of a body part, slurred speech, weakness or drooping of the face, or a sudden inability to walk or hold your balance Allergies/Adverse Reactions: Allergies citalopram hydrobromide [From Celexa] Allergy (Verified 03/18/18 11:28) Hives Penicillins [PCN] Allergy (Verified 03/18/18 11:28) Hives tetanus immune globulin Allergy (Verified 03/18/18 11:28) Hives liraglutide [From Victoza] Adverse Reaction (Verified 03/18/18 11:28) Nausea/Vom/Diarrhea Medications to take at Discharge Omeprazole [Prilosec] 20 mg PO DAILY 10/26/15 Levothyroxine [Synthroid] 50 mcg PO DAILY 09/27/17 Ondansetron [Zofran Odt] 4 mg PO Q8H PRN PRN #14 tab 09/27/17 Pnv No.103/Folic/Om3s/Fish Oil [ Gummies] 2 ea PO DAILY 09/27/17 Sertraline HCl [Zoloft] 50 mg PO DAILY 09/27/17 aspirin 81 mg tablet,delayed release 81 mg PO DAILY 03/18/18 ovuqrgx-[id number] tablet 1 tab PO DAILY tab 03/18/18 loratadine 10 mg capsule 10 mg PO DAILY 03/18/18 Docusate Sodium [Colace] 100 mg PO BID PRN PRN #60 cap 05/02/18 Oxycodone [Oxyir] 5 mg PO Q6H PRN PRN 7 Days #20 tab 05/02/18 Follow-Up: Call to make an appointment with your doctor for an incision check in 1-2 weeks. You will also need a 6 week post- follow up appointment. Test results from this visit will be discussed in further detail at your follow- up appointment, if applicable. Please Follow Up With: Jack Leung MD - [phone] When: Call to make an appointment for an incision check in 2 weeks. Primary Care Physician: Librado Ybarra DO [Primary Care Provider] -
[2018-05-02] MEDS: Oxymetazoline 0.05% 1 SPRAY SPRAY.BTL 2 SPRAY NASAL ×2 (11:46→22:33)
[2018-05-02] MEDS: Lactated Ringers 1,000 ML 100 ML IV ×2 (14:33→22:34)
[2018-05-02] MEDS: Ketorolac 30 MG/ML Syringe IV ×2 (15:49→22:09)
[2018-05-02] MEDS: Cefazolin 1 GM/50 ML BAG IV (17:00)
[2018-05-02] MEDS: Enoxaparin 30 MG/0.3 ML Syringe SC (18:45)
[2018-05-02] MEDS: Sertraline 50 MG Tablet PO (22:09)
[2018-05-02] MEDS: Senna/Docusate Sodium 1 Tablet PO (22:09)
[2018-05-03] VITALS (7 sets, daily range): BP systolic 103–136; BP diastolic 55–80; PULSE 100–112; RESP 18–20; TEMP 36.4–37.7; O2SAT 96–98
[2018-05-03] MEDS: Cefazolin 1 GM/50 ML BAG IV (01:10)
[2018-05-03] MEDS: Ketorolac 30 MG/ML Syringe IV ×4 (04:25→22:13)
[2018-05-03 05:05] LABS: Hematocrit 28.5 % (37-47); Hemoglobin 9.2 g/dl (12.0-15.0); Mean Corp Hgb Conc 32.3 g/gl (32-36); Mean Corpuscular Hgb 26.8 pg (27.0-32.0); Mean Corpuscular Volume 83.1 fL (81-99); Platelet Count 138 K/mm3 (150-450); RBC Distribution Width CV 15.1 % (11.6-14.6); RBC Distribution Width SD 45.6 fl (35.1-43.9); Red Blood Count 3.43 M/mm3 (4.2-5.4); White Blood Count 14.4 K/mm3 (4.4-11.0)
[2018-05-03 05:06] LABS: Scan Indicated on CBC? Y/N NO
[2018-05-03] MEDS: Levothyroxine 50 MCG Tablet PO (05:26)
[2018-05-03] MEDS: Acetaminophen 500 MG Tablet 1000 MG PO ×2 (08:22→20:11)
[2018-05-03] MEDS: Bisacodyl 10 MG Suppository RECTAL (08:53)
[2018-05-03] MEDS: 0.9% Saline Lock 10 ML Syringe IV ×3 (10:24→22:13)
--- NOTE | 2018-05-03 10:32 | PCM.PN.OB ---
Subjective: Patient without complaints. Tolerating diet well. Positive flatus. Considering released to home later today. - Physical Exam Vital Signs Temp Pulse Resp BP Pulse Ox 99.1 F 105 H 20 H 103/55 L 96 05/03/18 08:00 05/03/18 08:00 05/03/18 08:00 05/03/18 08:00 05/03/18 08:00 Oxygen Delivery Method Room Air Weight: 236 lb 1.841 oz Body Mass Index (BMI) 40.5 Intake and Output for Last 24 Hours 05/01/18 05/02/18 05/03/18 23:59 23:59 23:59 Intake Total 5873.3 / 5873.3 6951 / 6951 1651 / 1651 Output Total 2450 / 2450 2525 / 2525 500 / 500 Balance 3423.3 / 3423.3 4426 / 4426 1151 / 1151 Laboratory Tests Past 24 Hrs 05/03/18 04:35 WBC 14.4 H RBC 3.43 L Hgb 9.2 L Hct 28.5 L MCV 83.1 MCH 26.8 L MCHC 32.3 RDW 15.1 H RDW Differential 45.6 H Plt Count 138 L MPV 11.0 Wound is clean, dry, intact. Good urine output. Hemoglobin okay. Medical Necessity - Tobacco Use Smoking Status: Former smoker Assessment/Plan All Active Problems (Last Reviewed 03/18/18 @ 11:47 by Vahe Antoine MD) Dizziness (Acute) Dyspnea (Acute) Elevated blood pressure reading without diagnosis of hypertension (Acute) Tachycardia (Acute) Doing well postoperative day #1 status post primary section for polyhydramnios, failure to progress, and cephalopelvic disproportion. Continuing present care. Home-going instructions given in anticipation of possible release later today. Will add Ultram to meds both here and home-going as patient had some difficulty with distention overnight presumably from narcotic relieved with Dulcolax suppository. She knows that she should only use one or the other medication at home and not to use Ultram and oxycodone together.
[2018-05-03] MEDS: traMADol 50 MG Tablet PO (15:28)
--- NOTE | 2018-05-03 15:37 | NURSING ---
Pt voided at 1100 but did not measure. states feels bladder emptied completely
[2018-05-03] MEDS: Sertraline 50 MG Tablet 100 MG PO (22:11)
[2018-05-03] MEDS: Senna/Docusate Sodium 1 Tablet PO (22:12)
[2018-05-03] MEDS: Oxymetazoline 0.05% 1 SPRAY SPRAY.BTL 2 SPRAY NASAL (22:14)
[2018-05-04 01:00] VITALS: BP 105/57; PULSE 81; RESP 20; TEMP 36.1
[2018-05-04] MEDS: traMADol 50 MG Tablet PO (03:12)
[2018-05-04] MEDS: 0.9% Saline Lock 10 ML Syringe IV ×3 (03:50→08:55)
[2018-05-04] MEDS: Ketorolac 30 MG/ML Syringe IV ×2 (03:50→08:55)
[2018-05-04] MEDS: Levothyroxine 50 MCG Tablet PO (06:59)
[2018-05-04 08:17] VITALS: BP 124/71; PULSE 90; RESP 16; TEMP 36.5
--- NOTE | 2018-05-04 08:54 | PCM.PN.OB ---
Patient Problems: Active and Suspected Problems (Last Reviewed 03/18/18 @ 11:47 by Vahe Antoine MD) delivery delivered (Acute) Subjective: Pain improved today. OOB, ambulating, took a shower and passing flatus. Had a bowel movement. Denies nausea, vomiting and tolerates PO well. is nursing well. She is considering d/c home today. Objective: AVSS - Physical Exam General: Alert, Oriented x3, Cooperative, No apparent distress HEENT: Atraumatic, Normocephalic Lungs: Clear to auscultation, Normal air movement Cardiovascular: Regular rate, Regular Rhythm, Normal S1, Normal S2 Abdomen: Bowel Sounds Present, Soft, Non Tender, Non-Distended, - - Incision c/d/i with steri-strips and doris-incisional erythema likely from dressing tape Extremities: No edema, No Calf Tenderness Neurological: Neuro grossly intact Psych/Mental Status: Normal Affect, Appropriate, Alert and oriented to time, place, person, mood and affect Vital Signs Temp Pulse Resp BP Pulse Ox 97.7 F L 90 16 124/71 H 98 05/04/18 08:17 05/04/18 08:17 05/04/18 08:17 05/04/18 08:17 05/03/18 10:00 Oxygen Delivery Method Room Air Weight: 107.1 kg Body Mass Index (BMI) 40.5 Intake and Output for Last 24 Hours 05/02/18 05/03/18 05/04/18 23:59 23:59 23:59 Intake Total 6951 / 6951 1651 / 1651 Output Total 2525 / 2525 1000 / 1000 Balance 4426 / 4426 651 / 651 Medical Necessity - Tobacco Use Smoking Status: Former smoker Assessment/Plan All Active Problems (Last Reviewed 03/18/18 @ 11:47 by Vahe Antoine MD) delivery delivered (Acute) 32yo POD#2 s/p PLTCS doing well. - -Rh positive -Routine postop care -Plan for d/c home today
[2018-05-04] MEDS: Loratadine 10 MG Tablet PO (08:56)
--- NOTE | 2018-05-04 09:20 | PCM.DCCSEC ---
Discharge Diet: No Restrictions Discharge Activity: May not drive while taking narcotic pain medications., May Shower May resume sexual activity in: 4-6 weeks Lifting Restrictions: 10-20 lb Additional Activity Instructions:: Nothing in the vagina for 4-6 weeks. You may return to work/school in 6 weeks. Call your doctor if your incision/area has: Continuous Slow Oozing, Sudden Increased Bleeding, Increased Pain/ Swelling, Increased Redness, Foul Smelling Discharge Call your doctor if you observe: Fever of 101 or Higher, Inability to urinate, Inability to have a bowel movement, Using more than one pad per hour, Shortness of breath, Chest pain, Calf discomfort, Uncontrolled pain Suture Line Care: Avoid Pulling/Pushing Remove Dressing in (days):: 2 Cleanse incision/area with: Soap & Water Additional Instructions: If you experience any of the following, contact your healthcare provider. Bleeding that soaks a pad every hour for 2 hours Fever 100.4 or higher Unrelieved incision or abdominal pain Swelling, redness, discharge or bleeding from your incision or episiotomy site Your incision begins to separate Problems urinating (including inability to urinate or burning while urinating). Visual changes Severe headache Flu-like symptoms Pain or redness in one of both of your breasts Pain, warmth, tenderness or swelling in your legs, especially the calf area Frequent nausea and vomiting Symptoms of depression or anxiety If you experience any of the following, call 911 or go to the nearest Emergency Room. Chest pain Problems breathing Seizure activity Partial or complete paralysis of a body part, slurred speech, weakness or drooping of the face, or a sudden inability to walk or hold your balance Allergies/Adverse Reactions: Allergies citalopram hydrobromide [From Celexa] Allergy (Verified 03/18/18 11:28) Hives Penicillins [PCN] Allergy (Verified 03/18/18 11:28) Hives tetanus immune globulin Allergy (Verified 03/18/18 11:28) Hives liraglutide [From Victoza] Adverse Reaction (Verified 03/18/18 11:28) Nausea/Vom/Diarrhea Medications to take at Discharge Omeprazole [Prilosec] 20 mg PO DAILY 10/26/15 Levothyroxine [Synthroid] 50 mcg PO DAILY 09/27/17 Pnv No.103/Folic/Om3s/Fish Oil [ Gummies] 2 ea PO DAILY 09/27/17 Sertraline HCl [Zoloft] 50 mg PO DAILY 09/27/17 [id number] tablet 1 tab PO DAILY tab 03/18/18 loratadine 10 mg capsule 10 mg PO DAILY 03/18/18 Docusate Sodium [Colace] 100 mg PO BID PRN PRN #60 cap 05/02/18 Oxycodone [Oxyir] 5 mg PO Q6H PRN PRN 7 Days #20 tab 05/02/18 Ibuprofen 600 mg PO TID PRN #30 tablet 05/04/18 The following prescriptions were given: Oxycodone [Oxyir] 5 mg PO Q6H PRN PRN 7 Days #20 tab PRN Reason: Severe Pain (-01/07) Docusate Sodium [Colace] 100 mg PO BID PRN PRN #60 cap PRN Reason: Constipation Ibuprofen 600 mg PO TID PRN #30 tablet PRN Reason: Pain Follow-Up: Call to make an appointment with your doctor for an incision check in 1-2 weeks. You will also need a 6 week post- follow up appointment. Test results from this visit will be discussed in further detail at your follow-up appointment, if applicable. Please Follow Up With: Tanesha Yanes MD - 1-2 weeks Primary Care Physician: Librado Ybarra DO [Primary Care Provider] -
--- NOTE | 2018-05-04 09:23 | DCINST_ITS ---
Discharge Diet: No Restrictions Discharge Activity: May not drive while taking narcotic pain medications., May Shower May resume sexual activity in: 4-6 weeks Lifting Restrictions: 10-20 lb Additional Activity Instructions:: Nothing in the vagina for 4-6 weeks. You may return to work/school in 6 weeks. Call your doctor if your incision/area has: Continuous Slow Oozing, Sudden Increased Bleeding, Increased Pain/ Swelling, Increased Redness, Foul Smelling Discharge Call your doctor if you observe: Fever of 101 or Higher, Inability to urinate, Inability to have a bowel movement, Using more than one pad per hour, Shortness of breath, Chest pain, Calf discomfort, Uncontrolled pain Suture Line Care: Avoid Pulling/Pushing Remove Dressing in (days):: 2 Cleanse incision/area with: Soap & Water Additional Instructions: If you experience any of the following, contact your healthcare provider. * Bleeding that soaks a pad every hour for 2 hours * Fever 100.4 or higher * Unrelieved incision or abdominal pain * Swelling, redness, discharge or bleeding from your incision or episiotomy site * Your incision begins to separate * Problems urinating (including inability to urinate or burning while urinating). * Visual changes * Severe headache * Flu-like symptoms * Pain or redness in one of both of your breasts * Pain, warmth, tenderness or swelling in your legs, especially the calf area * Frequent nausea and vomiting * Symptoms of depression or anxiety If you experience any of the following, call 911 or go to the nearest Emergency Room. * Chest pain * Problems breathing * Seizure activity * Partial or complete paralysis of a body part, slurred speech, weakness or drooping of the face, or a sudden inability to walk or hold your balance Allergies/Adverse Reactions: Allergies citalopram hydrobromide [From Celexa] Allergy (Verified 03/18/18 11:28) Hives Penicillins [PCN] Allergy (Verified 03/18/18 11:28) Hives tetanus immune globulin Allergy (Verified 03/18/18 11:28) Hives liraglutide [From Victoza] Adverse Reaction (Verified 03/18/18 11:28) Nausea/Vom/Diarrhea Medications to take at Discharge Omeprazole [Prilosec] 20 mg PO DAILY 10/26/15 Levothyroxine [Synthroid] 50 mcg PO DAILY 09/27/17 Pnv No.103/Folic/Om3s/Fish Oil [ Gummies] 2 ea PO DAILY 09/27/17 Sertraline HCl [Zoloft] 50 mg PO DAILY 09/27/17 gsyavgd-alizhezbe-nhvp tablet 1 tab PO DAILY tab 03/18/18 loratadine 10 mg capsule 10 mg PO DAILY 03/18/18 Docusate Sodium [Colace] 100 mg PO BID PRN PRN #60 cap 05/02/18 Oxycodone [Oxyir] 5 mg PO Q6H PRN PRN 7 Days #20 tab 05/02/18 Ibuprofen 600 mg PO TID PRN #30 tablet 05/04/18 The following prescriptions were given: Oxycodone [Oxyir] 5 mg PO Q6H PRN PRN 7 Days #20 tab PRN Reason: Severe Pain (6-01/07) Docusate Sodium [Colace] 100 mg PO BID PRN PRN #60 cap PRN Reason: Constipation Ibuprofen 600 mg PO TID PRN #30 tablet PRN Reason: Pain Follow-Up: Call to make an appointment with your doctor for an incision check in 1-2 weeks. You will also need a 6 week post- follow up appointment. Test results from this visit will be discussed in further detail at your follow- up appointment, if applicable. Please Follow Up With: Tanesha Yanes MD - 1-2 weeks Primary Care Physician: Librado Ybarra DO [Primary Care Provider] -
[2018-05-04 13:45] VITALS: BP 140/80; PULSE 100; RESP 18; TEMP 36.4
[2018-05-04] MEDS: Senna/Docusate Sodium 1 Tablet PO (13:56)
[2018-05-04] MEDS: oxyCODONE 5 MG Tablet PO ×2 (13:57→18:43)
[2018-05-04 20:20] VITALS: BP 134/69; PULSE 96; RESP 18; TEMP 37.6; O2SAT 98
[2018-05-04] MEDS: Sertraline 50 MG Tablet 100 MG PO (21:29)
[2018-05-04] MEDS: Ibuprofen 600 MG Tablet PO (22:30)
[2018-05-05 02:45] VITALS: BP 103/68; PULSE 103; RESP 18; TEMP 36.1
--- NOTE | 2018-05-05 04:30 | PCM.PN.OB ---
Patient Problems: Active and Suspected Problems (Last Reviewed 03/18/18 @ 11:47 by Vahe Antoine MD) delivery delivered (Acute) Subjective: Sulma is sore today. Medication assists with pain, but Oxycodone makes her feel uneasy. She noted some chills. Denies fever, breast pain. is nursing well. Objective: AVSS - Physical Exam General: Alert, Oriented x3, Cooperative, No apparent distress HEENT: Atraumatic, Normocephalic Lungs: Normal air movement Cardiovascular: Regular rate, Regular Rhythm, Normal S1, Normal S2 Abdomen: Bowel Sounds Present, Soft, Non Tender, Non-Distended, - - Fundus firm and nontender, incision c/d/i Extremities: No edema, No Calf Tenderness Neurological: Neuro grossly intact Psych/Mental Status: Normal Affect, Appropriate, Alert and oriented to time, place, person, mood and affect Vital Signs Temp Pulse Resp BP Pulse Ox 99.6 F H 96 18 134/69 H 98 05/04/18 20:20 05/04/18 20:20 05/04/18 20:20 05/04/18 20:20 05/04/18 20:20 Oxygen Delivery Method Room Air Weight: 107.1 kg Body Mass Index (BMI) 40.5 Intake and Output for Last 24 Hours 05/03/18 05/04/18 05/05/18 23:59 23:59 23:59 Intake Total 1651 / 1651 Output Total 1000 / 1000 Balance 651 / 651 Medical Necessity - Tobacco Use Smoking Status: Former smoker Assessment/Plan All Active Problems (Last Reviewed 03/18/18 @ 11:47 by Vahe Antoine MD) delivery delivered (Acute) 32yo POD#3 s/p PLTCS doing well. - -Rh positive -Routine postop care -d/c home today pending bilirubin levels
[2018-05-05] MEDS: Ibuprofen 600 MG Tablet PO ×2 (05:08→11:03)
[2018-05-05 08:00] VITALS: BP 130/68; PULSE 87; RESP 20; TEMP 37.3
--- NOTE | 2018-05-05 13:05 | CASEMGMT ---
Addendum entered and electronically signed by Audra Guerrero 05/05/18 14:16: Reviewed and approve [employer] student documentation below. -Audra Guerrero, KELVIN, LARYNGOLOGIST Original Note: Social Work Assessment Labor and Delivery Unit Date of Referral: 05/04/18 Time of Referral: 829 Referred By: Attending RN Date of Intervention: 05/05/18 Time of Intervention: 10:00am Reason for Referral: hx of anxiety and depression, interest in PPD and anxiety information and resources. History obtained from: medical chart and mother of baby (MOB), Beatrice Borrego. Household composition: MOB, father of baby (FOB), Elias Borrego, and baby. This is where baby will be discharged. No history or indication of domestic violence informed at nursing admission assessment. No reported or identified concerns regarding home safety during this assessment. Patient's parent/guardian status: MOB and FOB are . This is the MOB and FOB's first child. Medical History: MOB is to 1 with of baby Juliet. MOB began care at 9 weeks and regularly attended appointments. MOB has history of anxiety and depression since high school age. MOB treats with therapy and medication. 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 FOB's education is unknown but he is a full time staff interpreter prism inspector. Financial Status: MOB and FOB are both employed and financially stable as MOB will be receiving modified income during maternity leave. Infant Supplies: MOB reported to have sleeping arrangements, car seat, diapers, clothes, bottles, and other needs for baby to discharge home. Childcare/Caregiver(s): MOB will be primary caregiver as FOB will still be working fulltime and taking days off work as needed to help MOB. MOB's mother and sister will also be supplemental care givers. Transportation: MOB expressed that both parents have their own car and drivers license. MOB also expressed avoidance of taking medication that impairs ability to drive to ensure MOB and baby attend follow-up appointments. Programs/Agencies Involved: [facility] information provided for MOB to review income eligibility of household and call to make an appointment if possible to receive benefits. Declined [facility] but was provided informational brochure. [facility] with counselor Lisa Peña. Children Services/Legal Issues: No children's services history or legal issues discussed or indicated. Behavioral Health Issues: Mental Health History: MOB history of anxiety and depression. Diagnosed during teenage years and reported that anxiety is more of an issue than depression. MOB has been prescribed Zoloft to take daily and Ativan as needed. MOB did report discontinuation of Zoloft and Ativan at knowledge of and resumed Zoloft when symptom of irritability worsened and functioning was impacted. MOB also reported that Ativan was not taken during and will not be taken during duration of . MOB will be continuing therapy for anxiety and depression. Substance Use History: non drug user and non ETOH user. Former tobacco smoker. Family History: No abnormal family history indicated. Drug Screens: Negative drug screen at [facility] visit on 09/10/18. Family/Social Stressors: MOB indicated feeling stressed about returning home and creating a routine with baby. Expressed optimism with being able to work through changes with support from FOB. Support Systems: Elias, MOB mother and LEYLA, MOB sister. Depression/Shaken Baby/Safe Sleeping: PPD information reviewed and discussed with MOB. MOB showed understanding and responsiveness with information and asked questions throughout conversation. MOB seemed to feel more comfortable with topic near end of conversation as evidenced by willingness to talk and more relaxed body language/tone of voice as she showed worry and concern of topic prior. MOB indicated that checklist will be reviewed at home with FOB for future watch of potential symptoms. Shaken Baby and Safe Sleeping information initially provided by nurses but reviewed and correctly acknowledged by MOB. ASSESSMENT: MOB was pleasant and calmly sat in the rocking chair holding baby. Showed appropriate gentle care and attention to baby. MOB verified necessary information and informed social insurance administrator and student regarding FOB information. MOB expressed interest in learning more about PPD and Anxiety as there is higher risk with hx. MOB discussed concerns and asked questions as to how to identify symptoms. MOB was provided PPD packet and informed about free weekly and monthly online chats. MOB expressed frustration with laboring period and need for as labor progression was slow with Pitocin, and 5cm was the stopping point of labor progress for 12 hours. MOB discussed wishes regarding more to have been done to progress labor instead of nurses/doctors increasing medication and switching laboring positions but also questioned why the was not determined and conducted sooner when baby's heart rate was fluctuating. At this time MOB also explained uncertain of what more could have been done to help laboring process. MOB was relieved and comfortable with decision to stay extra two nights rather than leaving 24 hours after . PLAN: MOB and baby will discharge home. MOB plans to continue taking Zoloft as directed by doctor. Ativan will not be resumed until baby is no longer . MOB also plans to continuously see her therapist Lisa at [facility] and will soon call and schedule next appointment. MOB was given PPD to share with FOB to be watchful for potential symptoms progressing after baby blues period and communicating with doctors as needed. No other services requested or indicated. -Adele Obrien, HEEL [employer]DER Student Mid Level Java Developer.
--- NOTE | 2018-05-08 17:57 | PCM.DC.SUM ---
Discharge Date and Diagnosis Date of Admission: 04/30/18 Date of Discharge: 05/05/18 Hospital Course and Treatment Consultations 04/30/18 19:15 Consult: Anesthesia Routine Comment: Reason For Exam: labor Operations: - - Low transverse section Procedures: None Summary of Care Provided: The patient is a 32 year old F 1 admitted at 39+ weeks gestational age for induction of labor for polyhydramnios. She progressed to 6cm dilation. She subsequently underwent primary section for arrest of dilation. Her surgery was uncomplicated. Her course was unremarkable and she was discharged to home on post-operative day #3. - Physical Exam Vital Signs Temp Pulse Resp BP Pulse Ox 99.1 F 87 20 H 130/68 H 98 05/05/18 08:00 05/05/18 08:00 05/05/18 08:00 05/05/18 08:00 05/04/18 20:20 Oxygen Delivery Method Room Air Weight: 107.1 kg Body Mass Index (BMI) 40.5 Discharge Diet: No Restrictions Discharge Activity: May not drive while taking narcotic pain medications., May Shower May resume sexual activity in: 4-6 weeks Additional Activity Instructions:: Nothing in the vagina for 4-6 weeks. You may return to work/school in 6 weeks. Call your doctor if your incision/area has: Continuous Slow Oozing, Sudden Increased Bleeding, Increased Pain/ Swelling, Increased Redness, Foul Smelling Discharge Call your doctor if you observe: Fever of 101 or Higher, Inability to urinate, Inability to have a bowel movement, Using more than one pad per hour, Shortness of breath, Chest pain, Calf discomfort, Uncontrolled pain Suture Line Care: Avoid Pulling/Pushing Remove Dressing in (days):: 2 Cleanse incision/area with: Soap & Water Home Medications: Medications to take at Discharge Omeprazole [Prilosec] 20 mg PO DAILY 10/26/15 Levothyroxine [Synthroid] 50 mcg PO DAILY 09/27/17 Pnv No.103/Folic/Om3s/Fish Oil [ Gummies] 2 ea PO DAILY 09/27/17 Sertraline HCl [Zoloft] 50 mg PO DAILY 09/27/17 pewhfnh-dbtumatxq-riev tablet 1 tab PO DAILY tab 03/18/18 loratadine 10 mg capsule 10 mg PO DAILY 03/18/18 Docusate Sodium [Colace] 100 mg PO BID PRN PRN #60 cap 05/02/18 Oxycodone [Oxyir] 5 mg PO Q6H PRN PRN 7 Days #20 tab 05/02/18 Ibuprofen 600 mg PO TID PRN #30 tablet 05/04/18 Following Prescrptions Were Given to Patient: Oxycodone [Oxyir] 5 mg PO Q6H PRN PRN 7 Days #20 tab PRN Reason: Severe Pain (-01/07) Docusate Sodium [Colace] 100 mg PO BID PRN PRN #60 cap PRN Reason: Constipation Ibuprofen 600 mg PO TID PRN #30 tablet PRN Reason: Pain Primary Care Physician: Librado Ybarra DO [Primary Care Provider] - Please Follow Up With: Tanesha Yanes MD - 1-2 weeks When: Call to make an appointment for an incision check in 2 weeks. Medical Necessity - Tobacco Use Smoking Status: Former smoker Meaningful Use Info Meaningful Use Diagnoses (Choose all that apply): None applicable
== END 2018-05-05 11:05 | disposition home or self-care (01) | DRG 788 ==
PROVIDERS: Obstetrics & Gynecology; Admitting Provider Obstetrics & Gynecology; Family Provider Family Medicine; PCP Family Medicine; Referring Provider Obstetrics & Gynecology; Visit Provider Obstetrics & Gynecology
DX: O40.3XX0 Polyhydramnios, third trimester, not applicable or unspecified (principal); O62.0 Primary inadequate contractions; O33.9 Maternal care for disproportion, unspecified; O34.43 Maternal care for other abnormalities of cervix, third trimester; O99.89 Other specified diseases and conditions complicating pregnancy, childbirth and the puerperium; R03.0 Elevated blood-pressure reading, without diagnosis of hypertension; R00.0 Tachycardia, unspecified; O99.613 Diseases of the digestive system complicating pregnancy, third trimester; K21.9 Gastro-esophageal reflux disease without esophagitis; O99.343 Other mental disorders complicating pregnancy, third trimester; F32.9 Major depressive disorder, single episode, unspecified; F41.9 Anxiety disorder, unspecified; Z79.82 Long term (current) use of aspirin; Z87.891 Personal history of nicotine dependence; Z37.0 Single live birth; Z3A.39 39 weeks gestation of pregnancy
CPT/HCPCS: 59025; 59050; 85027; 86850; 86900; 94762; 99218; J7120; A4216; G0378; J2405

== ENCOUNTER → 2018-06-11 13:23 | Outpatient (CLI) | payer OTHER, SELFPAY ==
[2018-06-11 16:37] LABS: Free T3 2.7 pg/mL (2.18-3.98); Glucose 80 mg/dL (74-106); Insulin 5.1 mU/L (2.6-37.6); T4 Free Direct 0.89 ng/dL (0.76-1.46); Thyroid Stim Hormone (TSH) 1.15 uIU/mL (0.358-3.74)
== END ==
PROVIDERS: Visit Provider Obstetrics & Gynecology
DX: E03.9 Hypothyroidism, unspecified (principal); E88.81 Metabolic syndrome and other insulin resistance
CPT/HCPCS: 36415; 82947; 83525; 84439; 84443; 84481

== ENCOUNTER → 2018-07-27 16:59 | Outpatient (CLI) | payer OTHER, SELFPAY ==
[2018-07-27 18:02] LABS: Free T3 2.6 pg/mL (2.18-3.98); T4 Free Direct 0.72 ng/dL (0.76-1.46); Thyroid Stim Hormone (TSH) 2.29 uIU/mL (0.358-3.74)
== END ==
PROVIDERS: Family Provider Family Medicine; PCP Family Medicine; Referring Provider Obstetrics & Gynecology; Visit Provider Obstetrics & Gynecology
DX: E03.9 Hypothyroidism, unspecified (principal)
CPT/HCPCS: 36415; 84439; 84443; 84481

== ENCOUNTER 2018-08-17 16:30 | Outpatient (CLI) | payer OTHER, SELFPAY | END 2018-08-17 17:20 | disposition home or self-care (01) | LOC: WPOUT 16:38 → WP 16:39 | PROVIDERS: Family Provider Family Medicine; PCP Family Medicine; Referring Provider Family Medicine; Visit Provider Family Medicine | DX: Z39.1 Encounter for care and examination of lactating mother (principal) | CPT/HCPCS: 96152 ==

== ENCOUNTER → 2018-09-12 23:23 | Outpatient (CLI) | payer OTHER, SELFPAY ==
[2018-09-13 00:05] LABS: T4 Free Direct 0.73 ng/dL (0.76-1.46); Thyroid Stim Hormone (TSH) 3.23 uIU/mL (0.358-3.74)
== END ==
PROVIDERS: Family Provider Family Medicine; PCP Family Medicine; Visit Provider Family Medicine
DX: R79.89 Other specified abnormal findings of blood chemistry (principal)
CPT/HCPCS: 36415; 84439; 84443

== ENCOUNTER → 2018-11-03 11:08 | Outpatient (CLI) | payer OTHER, SELFPAY ==
--- NOTE | 2018-11-03 11:13 | US_ITS ---
STUDY: ULTRASOUND OF THE FEMALE PELVIS - COMPLETE REASON FOR EXAM: Female, 32 years old. Left lower quadrant pain. LMP: October 29, 2018. TECHNIQUE: Transabdominal TECHNICAL QUALITY: Adequate. July 03, 2017. COMPARISON: None. FINDINGS: The uterus is anteverted and is in a midline position. The uterus measures 1.6 x 5.9 x 3.4 cm. Normal uterine cervix. The endometrium measures 5.9 mm in thickness, and is hyperechoic. There is no demonstrated endometrial mass. There is no demonstrated myometrial mass. I.U.D. - The patient does not have an I.U.D. The right ovary is visualized. The right ovary measures 2.5 x 2.0 x 1.3 cm. There is no right ovarian cyst or ovarian mass. There is no visualized right adnexal mass or complex lesion. There is normal arterial and normal venous vascularity. The left ovary is visualized. The left ovary measures 3.6 x 2.7 x 1.5 cm. There is a 7 mm dominant follicle. There is no visualized left adnexal mass or complex lesion. There is normal arterial and normal venous vascularity. There is no fluid in the cul-de-sac. The pre void volume of the bladder was 500 ml. The urinary bladder is grossly normal. US/Pelvic (Non ) IMPRESSION: Normal female pelvis. Electronically Signed: Anoop Beltran DO at 16:51 EDT Tel [phone], Service support ,
== END ==
PROVIDERS: Family Provider Family Medicine; PCP Family Medicine; Referring Provider Family Medicine; Visit Provider Family Medicine
DX: R10.32 Left lower quadrant pain (principal)
CPT/HCPCS: 76856; 93976

== ENCOUNTER 2018-11-09 13:35 | Emergency (ER) | payer OTHER, SELFPAY ==
[2018-11-09 13:36] VITALS: BP 137/76; PULSE 63; RESP 17; TEMP 36.8; O2SAT 97; BMI 33.7
--- NOTE | 2018-11-09 15:31 | ED.VISSUMM ---
- ER Visit Summary Date of Service: 11/09/18 Chief Complaint: Lower abdominal pain History of Present Illness: The patient is a 32 F who presents with lower abdominal pain that became worse today. Patient states the pain is over the lower abdomen. Patient describes pain as cramping, sharp, and stabbing. Patient states pain is over the both lower quadrants and suprapubic area. Patient states her pain is worse with ambulation. Patient admits to nausea but denies any vomiting. Patient denies any diarrhea but denies any melena or hematochezia. Patient states her last menstrual period was 10/29/2018 and was normal. Patient states she has not eaten anything since 6:30 AM today. Patient denies any urinary complaints. Physical Examination: Vital signs are stable. Patient is afebrile. Patient is in no acute distress. Oral mucosa is pink and moist. Neck is supple. Trachea is midline. There is no JVD. Heart was regular rate and rhythm. Lungs are clear and equal bilaterally. Abdomen is soft. Bowel sounds are normal. There is some mild suprapubic tenderness. There is no rebound or guarding noted. Cranial nerves II through XII are intact. There are no focal motor or sensory deficits noted. Test Results: CBC, basic metabolic profile, urinalysis, and serum hCG were obtained and were all normal. Emergency Department Course and Treatment: Patient was given Zofran here. Patient was feeling better on reevaluation. Patient with ibuprofen or Aleve as needed for pain. Patient was instructed to follow-up with her primary care physician in 5 to 7 days. This may be from an ovarian cyst. Patient understood and was agreeable with the plan. All questions were answered. Disposition: Discharge home Impression: Pelvic pain This note was generated with [employer] dictation software. It may contain incorrect words, spelling, and punctuation that were not noted in review of the chart prior to signing ED Disposition - Plan for ED Patient: Disposition: Home or Assisted Living Diagnosis: Pelvic pain Instructions: ABDOMINAL PAIN, Unknown Cause, (Female) Referrals: Librado Ybarra DO [Primary Care Provider] - 5-7 Days
[2018-11-09 15:36] LABS: Bacteria 0 SEEN /hpf (None Seen); Mucous, Urine 0 SEEN /hpf (<or=2+); Red Blood Cells-Urine 0 SEEN /hpf (0-5); Squamous Epithelial Cells - UA 0 SEEN /hpf (5-10); White Blood Cells 0 SEEN /hpf (0-5)
[2018-11-09 15:38] LABS: Absolute Lymphocyte Count 2.51 X10^3/uL (0.83-4.51); Absolute Neutrophil Count 3.4 X10^3/uL (2.0-7.7); Basophil# 0.03 X10^3/uL; Basophil% 0.5 % (0-1); Eosinophil# 0.19 X10^3/uL; Eosinophils% 2.9 % (0-5); Hematocrit 37.3 % (37-47); Hemoglobin 12.7 g/dL (12.0-15.0); Lymphocyte # 2.51 X10^3/ul (4.0); Lymphocyte % 38.4 % (19-41); Mean Corpuscular Hgb 29.5 pg (27.0-32.0); Mean Corpuscular Volume 86.5 fL (81-99); Mean Platelet Vol. 10.4 fl (6.2-12.0); Monocyte# 0.34 X10^3/uL; Monocyte% 5.2 % (0-10); NRBC Flagged by Analyzer 0 % (0-5); Neutrophil # 3.44 X10^3/uL (2.7-7.7); Neutrophil % 52.7 % (47-70); Platelet Count 217 K/mm3 (150-450); RBC Distribution Width CV 12.4 % (11.6-14.6); RBC Distribution Width SD 39.4 fl (35.1-43.9); Red Blood Count 4.31 M/mm3 (4.2-5.4); White Blood Count 6.5 K/mm3 (4.4-11.0)
[2018-11-09 15:53] LABS: Color, Urine Straw (Yellow); Glucose, Dipstick Normal (Normal); Ketone-Dipstick Negative (Negative); Leukocyte Esterase-Dipstick Negative /ul (Negative); Nitrite-Dipstick Negative (Negative); Occult Blood-Urine Negative /ul (Negative); Protein-Dipstick Negative (Negative); Urine Bilirubin Dipstick Negative (Negative); Urine Clarity Sl. Cloudy (Clear); Urine Urobilinogen Normal (Normal); Urine pH 6.5 (5.0 - 8.0)
[2018-11-09] MEDS: Ondansetron 4 MG/2 ML Vial IV (15:57)
[2018-11-09 16:01] LABS: ALB/GLOB Ratio 1.2 RATIO (0.9-2.4); AST(SGOT) 17 U/L (15-37); Alanine Aminotransfer ALT/SGPT 26 U/L (13-56); Albumin, Serum 4.1 g/dL (3.2-5.0); Alkaline Phosphatase 82 U/L (45-117); Anion Gap 5 (5-15); BUN 12 mg/dL (7-18); Calcium,Total 9.3 mg/dL (8.5-10.1); Chloride 106 mmol/L (98-107); Creatinine, Serum 0.66 mg/dL (0.55-1.02); EST Glomerular Filtration Rate 108 mL/min (>60); Est Glom Filt Rate - Afr Amer 130 mL/min (>60); Estimated Creatinine Clearance 103.71 ml/min; Globulin 3.4 g/dL (2.2-4.2); Glucose 80 mg/dL (74-106); Lipase 98 U/L (73-393); Potassium 3.4 mmol/L (3.5-5.1); Protein, Total 7.5 g/dL (6.4-8.2); Sodium Level 139 mmol/L (136-145)
[2018-11-09 16:13] LABS: Internal QC Validated? YES +Cl - CLEAR BKGD; Pregnancy, Serum, hCG Quali. NEGATIVE Negative
[2018-11-09 18:49] VITALS: PULSE 69; RESP 17; O2SAT 98
== END 2018-11-09 18:51 | disposition home or self-care (01) ==
PROVIDERS: Emergency Provider Emergency Medicine; Family Provider Family Medicine; PCP Family Medicine
DX: R10.2 Pelvic and perineal pain (principal); F32.9 Major depressive disorder, single episode, unspecified; K21.9 Gastro-esophageal reflux disease without esophagitis; Z79.899 Other long term (current) drug therapy
CPT/HCPCS: 80053; 81001; 83690; 84703; 85025; 96374; 99283; A4216; J2405

== ENCOUNTER → 2019-01-01 20:55 | Outpatient (CLI) | payer OTHER, SELFPAY ==
[2019-01-01 21:30] LABS: T4 Free Direct 0.71 ng/dL (0.76-1.46); Thyroid Stim Hormone (TSH) 2.52 uIU/mL (0.358-3.74)
[2019-01-04 14:07] LABS: Thyroid Peroxidase AB 13 IU/mL (0-34)
[2019-01-05 14:29] LABS: Thyroglobulin Antibody < 1.0 IU/mL (0.0-0.9)
== END ==
PROVIDERS: Family Provider Family Medicine; PCP Family Medicine; Visit Provider Family Medicine
DX: R53.83 Other fatigue (principal); L65.9 Nonscarring hair loss, unspecified
CPT/HCPCS: 36415; 84439; 84443; 86376; 86800

== ENCOUNTER → 2019-01-04 16:18 | Outpatient (CLI) | payer OTHER, SELFPAY ==
[2019-01-04 16:53] LABS: Hematocrit 38.3 % (37-47); Hemoglobin 13.3 g/dL (12.0-15.0); Mean Corp Hgb Conc 34.7 g/dL (32-36); Mean Corpuscular Volume 86.5 fL (81-99); Mean Platelet Vol. 10.8 fl (6.2-12.0); Platelet Count 235 K/mm3 (150-450); RBC Distribution Width CV 11.9 % (11.6-14.6); RBC Distribution Width SD 37.6 fl (35.1-43.9); Red Blood Count 4.43 M/mm3 (4.2-5.4); White Blood Count 8.1 K/mm3 (4.4-11.0)
[2019-01-04 17:12] LABS: Ferritin 22 ng/mL (8-252); Free T3 2.6 pg/mL (2.18-3.98); Iron 65 ug/dL (50-170); Iron Binding Capacity,Total 388 ug/dL (250-450); PERCENT IRON SATURATION 16.8 % (15.0-55.0); Vitamin B12 1025 pg/mL (211-911)
== END ==
LOC: LABSPEC 16:18
PROVIDERS: Visit Provider Obstetrics & Gynecology
DX: L65.9 Nonscarring hair loss, unspecified (principal)
CPT/HCPCS: 82607; 82728; 83540; 83550; 84481; 85027

== ENCOUNTER 2019-02-15 08:28 | Emergency (ER) | payer OTHER, SELFPAY ==
[2019-02-15 08:29] VITALS: BP 161/96; PULSE 84; RESP 17; TEMP 36.9; O2SAT 97; BMI 35.5
--- NOTE | 2019-02-15 08:38 | US_ITS ---
STUDY: FIRST TRIMESTER OBSTETRICAL ULTRASOUND REASON FOR EXAM: Female, 33 years old right lower quadrant pain. LMP: December 30, 2018 TECHNIQUE: Transvaginal TECHNICAL QUALITY: Adequate. PRIOR ULTRASOUND: None. FINDINGS: There is visualization of a single gestational sac in a normal intrauterine position. The mean sac diameter (MSD) measures 1.7 cm, indicating an estimated gestational age (EGA) of 6 weeks, 4 days. The gestational sac shape is within normal limits. There is a visualized yolk sac. The yolk sac measures 0.3 cm. The placenta is non-visualized. There is visualization of a live embryo. The crown-rump length (CRL) measures 0.5 cm, indicating an estimated gestational age (EGA) of 6 weeks, 5 days. There is demonstrated cardiac activity with a heart rate of 117 bpm. The embryo is implanted in the right side of the uterus. The estimated gestation age (EGA) by LMP is 6 weeks, 5 days. The estimated date of delivery (LUIS FERNANDO) by LMP is October 06, 2019. The estimated gestation age (EGA) by US is 6 weeks, 3 days. The estimated date of delivery (LUIS FERNANDO) by US is October 08, 2019. The uterus measures 9.8 cm x 7.2 cm x 5.9 cm. There is no demonstrated uterine fibroid. The cervix is closed. The right ovary measures 3.9 cm x 2.6 cm x 1.7 cm. There is no right ovarian cyst. There is no visualized right adnexal mass or complex lesion. The left ovary measures 4.1 cm x 2 cm x 2.1 cm. There is a 1.7 cm x 1.87 x 1.4 cm cyst with low-level echoes within it. There is no visualized left adnexal mass or complex lesion. There is no fluid in the cul de sac. US/Transvaginal w/Preg US IMPRESSION: Single live intrauterine gestation with a mean gestational age of 6 weeks and 3 days. Electronically Signed: Obdulio Jose, at 11:31 EST , Service support ,
--- NOTE | 2019-02-15 08:40 | ED.VIS.GEN ---
History of Present Illness Chief Complaint: Abd Pain Detail of Chief Complaint: Lower quadrant pain, positive test Informant: Patient Onset: Today Context: Gradual Onset Timing: Waxes and wanes Location: Inferior aspect of the right lower quadrant Current Severity: Mild Maximum Severity: Moderate Narrative: Patient presents with pain in the lower portion of her right lower quadrant that started early this morning. She states she does have some radiation to the anterior thigh. She denies urinary symptoms and no vaginal bleeding. She had a positive home test and believes she is approximately 6 weeks . She has not yet seen her [employer] doctor for this . She is G2, P1 Ab0. Blood type is O+. She has had a prior cholecystectomy and appendectomy. She denies history of kidney stones. She denies any recent injury. - Past Medical History (1) Acid reflux disease Status: Chronic (2) Hypothyroid Status: Chronic (3) Diabetes Status: Chronic (4) Anxiety Status: Chronic (5) Depression Status: Chronic Past Medical History - Allergies and Home Meds Allergies/Adverse Reactions: Allergies citalopram hydrobromide [From Celexa] Allergy (Verified 02/15/19 08:29) Hives Penicillins [PCN] Allergy (Verified 02/15/19 08:29) Hives tetanus immune globulin Allergy (Verified 02/15/19 08:29) Hives liraglutide [From Victoza] Adverse Reaction (Verified 02/15/19 08:29) Nausea/Vom/Diarrhea Primary Care Physician: Librado Ybarra DO [Primary Care Provider] - Prior records reviewed: Yes Surgical History: appendectomy, cholecystectomy, - - Lives: With Family Smoking Status: Never smoker Review of Systems General: Denies: Chills, Fever Eyes: Denies: Visual changes - bilaterally ENT: Denies: Bilateral ear pain Cardiovascular: Denies: Chest pain Respiratory: Denies: Dyspnea, Cough Gastrointestinal: Reports: Abdominal pain. Denies: Nausea, Vomiting, Diarrhea Genitourinary: Denies: Dysuria, Hematuria Musculoskeletal: Reports: Extremity Pain. Denies: Back pain Skin: Denies: Rash Neurological: Denies: Headache Allergy: Denies: Uticaria Physical Exam Vital Signs/Narrative: Vital Signs Temp Pulse Resp BP Pulse Ox 02/15/19 08:29 98.5 F 84 17 161/96 H 97 Inital Vital Signs reviewed: Yes General: Well nourished Head: Normocephalic ENT: Moist mucous membranes Neck: Supple Cardiovascular: Regular rate, Regular rhythm Respiratory: No distress, CTA bilaterally Abdomen: Soft, Tender - Mild tenderness in the right lower quadrant.. Negative for: Guarding, Rebound tenderness Extremities: Nontender Skin: Normal color Neurological: Alert, Oriented x3 Psychological: Normal affect Diagnostic/Tx/Re-eval Impressions Obstetrics Ultrasound 02/15/19 08:38 IMPRESSION: Single live intrauterine gestation with a mean gestational age of 6 weeks and 3 days. Electronically Signed: Obdulio Jose, at 11:31 EST , Service support , 02/15/19 08:38 Transvaginal w/Preg US [US] Stat Laboratory Results 02/15/19 02/15/19 02/15/19 08:40 09:10 09:10 WBC 8.5 RBC 4.54 Hgb 13.6 Hct 39.8 MCV 87.7 MCH 30.0 MCHC 34.2 RDW Std Deviation 38.4 RDW Coeff of Tania 11.9 Plt Count 200 MPV 10.6 Immature Gran % (Auto) 0.400 Neut % (Auto) 64.7 Lymph % (Auto) 28.2 [place] % (Auto) 4.5 Eos % (Auto) 2.0 Baso % (Auto) 0.2 Absolute Neuts (auto) 5.5 Absolute Lymphs (auto) 2.40 Nucleated RBC % 0 HCG, Quant 34437 H Urine Color Yellow Urine Clarity Sl. Cloudy Urine pH 6.5 Ur Specific [place] 1.005 Urine Protein Negative Urine Glucose (UA) Normal Urine Ketones Negative Urine Occult Blood Negative Urine Nitrite Negative Urine Bilirubin Negative Urine Urobilinogen Normal Ur Leukocyte Esterase Negative Urine RBC 0 SEEN Urine WBC 0 SEEN Ur Squamous Epith Cells 0-5 SEEN Urine Bacteria 1+ Urine Mucus 0 SEEN - Medical Decision Making Patient was given Tylenol. On repeat evaluation she is resting Armando. Test results are discussed with her. I spoke with Dr. Leung, on-call for Dr. Arnold Johnson. Patient is to follow-up on Friday for her scheduled appointment. I will also have patient's blood pressure rechecked prior to discharge. ED Disposition - Plan for ED Patient: Disposition: Home or Assisted Living Diagnosis: Abdominal pain, First trimester Instructions: ABDOMINAL PAIN, Early Referrals: Tanesha Yanes MD [STAFF PHYSICIAN] - Keep Alessandro appointment
[2019-02-15 08:46] LABS: Mucous, Urine 0 SEEN /hpf (<or=2+); Red Blood Cells-Urine 0 SEEN /hpf (0-5); White Blood Cells 0 SEEN /hpf (0-5)
[2019-02-15 08:47] LABS: Color, Urine Yellow (Yellow); Glucose, Dipstick Normal (Normal); Ketone-Dipstick Negative (Negative); Leukocyte Esterase-Dipstick Negative /ul (Negative); Nitrite-Dipstick Negative (Negative); Occult Blood-Urine Negative /ul (Negative); Protein-Dipstick Negative (Negative); Specific Gravity, Urine 1.005 (1.002-1.030); Urine Bilirubin Dipstick Negative (Negative); Urine Clarity Sl. Cloudy (Clear); Urine Urobilinogen Normal (Normal); Urine pH 6.5 (5.0 - 8.0)
[2019-02-15 08:54] LABS: Bacteria 1+ /hpf (None Seen); Squamous Epithelial Cells - UA 0-5 SEEN /hpf (5-10)
[2019-02-15] MEDS: Acetaminophen 500 MG Tablet 1000 MG PO (09:00)
[2019-02-15 09:24] LABS: Absolute Neutrophil Count 5.5 X10^3/uL (2.0-7.7); Basophil# 0.02 X10^3/uL; Basophil% 0.2 % (0-1); Eosinophil# 0.17 X10^3/uL; Hematocrit 39.8 % (37-47); Hemoglobin 13.6 g/dL (12.0-15.0); Lymphocyte % 28.2 % (19-41); Mean Corp Hgb Conc 34.2 g/dL (32-36); Mean Corpuscular Volume 87.7 fL (81-99); Mean Platelet Vol. 10.6 fl (6.2-12.0); Monocyte# 0.38 X10^3/uL; Monocyte% 4.5 % (0-10); NRBC Flagged by Analyzer 0 % (0-5); Neutrophil # 5.52 X10^3/uL (2.7-7.7); Neutrophil % 64.7 % (47-70); Platelet Count 200 K/mm3 (150-450); RBC Distribution Width CV 11.9 % (11.6-14.6); RBC Distribution Width SD 38.4 fl (35.1-43.9); Red Blood Count 4.54 M/mm3 (4.2-5.4); White Blood Count 8.5 K/mm3 (4.4-11.0)
[2019-02-15 10:20] LABS: hCG Titer Quant., Serum 24909 mIU/mL (1-3)
[2019-02-15 12:17] VITALS: BP 126/72; PULSE 69; RESP 18; O2SAT 100
== END 2019-02-15 12:19 | disposition home or self-care (01) ==
PROVIDERS: Emergency Provider Emergency Medicine; Family Provider Family Medicine; PCP Family Medicine
DX: O26.891 Other specified pregnancy related conditions, first trimester (principal); R10.31 Right lower quadrant pain; O99.341 Other mental disorders complicating pregnancy, first trimester; F32.9 Major depressive disorder, single episode, unspecified; F41.9 Anxiety disorder, unspecified; O99.611 Diseases of the digestive system complicating pregnancy, first trimester; K21.9 Gastro-esophageal reflux disease without esophagitis; Z3A.01 Less than 8 weeks gestation of pregnancy
CPT/HCPCS: 76817; 81001; 84702; 85025; 99285

== ENCOUNTER → 2019-02-19 17:06 | Outpatient (CLI) | payer OTHER, SELFPAY ==
[2019-02-15 08:29] VITALS: BMI 35.5
[2019-02-22 18:51] LABS: Chlamydia Trachomatis by PCR Negative (Negative); Neisserai gonorrhoeae by PCR Negative (Negative); Probe Check PASS; Sample Adequacy Control PASS; Specimen Processing Control PASS
== END ==
PROVIDERS: Family Provider Family Medicine; PCP Family Medicine; Referring Provider Obstetrics & Gynecology; Visit Provider Obstetrics & Gynecology
DX: Z11.3 Encounter for screening for infections with a predominantly sexual mode of transmission (principal); Z32.01 Encounter for pregnancy test, result positive
CPT/HCPCS: 87491; 87591

== ENCOUNTER → 2019-02-24 10:27 | Outpatient (CLI) | payer OTHER, SELFPAY ==
[2019-02-15 08:29] VITALS: BMI 35.5
[2019-02-24 13:42] LABS: Color, Urine Yellow (Yellow); Glucose, Dipstick Normal (Normal); Ketone-Dipstick Negative (Negative); Leukocyte Esterase-Dipstick Negative /ul (Negative); Nitrite-Dipstick Negative (Negative); Occult Blood-Urine 10 /ul (Negative); Protein-Dipstick Negative (Negative); Specific Gravity, Urine 1.015 (1.002-1.030); Urine Bilirubin Dipstick Negative (Negative); Urine Clarity Clear (Clear); Urine Urobilinogen Normal (Normal); Urine pH 6.5 (5.0 - 8.0)
[2019-02-24 13:43] LABS: Absolute Lymphocyte Count 2.71 X10^3/uL (0.83-4.51); Absolute Neutrophil Count 5.7 X10^3/uL (2.0-7.7); Basophil# 0.03 X10^3/uL; Basophil% 0.3 % (0-1); Eosinophil# 0.18 X10^3/uL; Hemoglobin 13.6 g/dL (12.0-15.0); Lymphocyte # 2.71 X10^3/ul (4.0); Lymphocyte % 29.4 % (19-41); Mean Corpuscular Hgb 29.4 pg (27.0-32.0); Mean Corpuscular Volume 86.6 fL (81-99); Mean Platelet Vol. 10.9 fl (6.2-12.0); Monocyte# 0.53 X10^3/uL; Monocyte% 5.7 % (0-10); NRBC Flagged by Analyzer 0 % (0-5); Neutrophil # 5.74 X10^3/uL (2.7-7.7); Neutrophil % 62.3 % (47-70); Platelet Count 209 K/mm3 (150-450); Red Blood Count 4.62 M/mm3 (4.2-5.4); White Blood Count 9.2 K/mm3 (4.4-11.0)
[2019-02-24 13:46] LABS: COTININE Drug Screen Negative (<200 ng/mL)
[2019-02-24 13:53] LABS: Amphetamine Urine VISTA NEGATIVE (<1000 ng/mL); Barbiturate Urine VISTA NEGATIVE (< 200 ng/mL); Benzodiazepine Urine VISTA NEGATIVE (< 200 ng/mL); Cocaine Urine VISTA NEGATIVE (< 300 ng/mL); Ecstacy Urine VISTA NEGATIVE (< 500 ng/mL); Methadone Urine VISTA NEGATIVE (< 300 ng/mL); PCP Urine VISTA NEGATIVE (< 25 ng/mL); THC Urine VISTA NEGATIVE (< 50 ng/mL); Vista UDS pH Range 6
[2019-02-24 14:02] LABS: Free T3 2.9 pg/mL (2.18-3.98); T4 Free Direct 0.82 ng/dL (0.76-1.46); Thyroid Stim Hormone (TSH) 1.09 uIU/mL (0.358-3.74)
[2019-02-24 14:44] LABS: HIV - WCH Non-Reactive (Nonreactive); Hepatitis B Surface Antigen Non-Reactive (Nonreactive); Hepatitis C Antibody Non-Reactive (Nonreactive); Rubella IgG 57.8 IU/mL; Vitamin D,25 Hydroxy 22.5 ng/mL (29.95-100.01)
[2019-02-25 01:54] LABS: Prenatal RPR NONREACTIVE (NONREACTIVE)
== END ==
PROVIDERS: Visit Provider Obstetrics & Gynecology
DX: O99.281 Endocrine, nutritional and metabolic diseases complicating pregnancy, first trimester (principal); E03.9 Hypothyroidism, unspecified; Z3A.00 Weeks of gestation of pregnancy not specified
CPT/HCPCS: 36415; 80307; 81002; 82306; 84439; 84443; 84481; 85025; 86703; 86762; 86803; 87340

== ENCOUNTER → 2019-03-16 09:55 | Outpatient (CLI) | payer OTHER, SELFPAY ==
[2019-02-15 08:29] VITALS: BMI 35.5
[2019-03-16 10:37] LABS: ALB/GLOB Ratio 1.2 RATIO (0.9-2.4); AST(SGOT) 18 U/L (15-37); Alanine Aminotransfer ALT/SGPT 34 U/L (13-56); Alkaline Phosphatase 56 U/L (45-117); Anion Gap 6 (5-15); BUN 9 mg/dL (7-18); BUN/Creat Ratio 17.4 RATIO (10-20); Calcium,Total 8.9 mg/dL (8.5-10.1); Chloride 105 mmol/L (98-107); Creatinine, Serum 0.52 mg/dL (0.55-1.02); EST Glomerular Filtration Rate 143 mL/min (>60); Est Glom Filt Rate - Afr Amer 174 mL/min (>60); Globulin 3.4 g/dL (2.2-4.2); Glucose 78 mg/dL (74-106); Potassium 3.8 mmol/L (3.5-5.1); Protein, Total 7.4 g/dL (6.4-8.2); Sodium Level 136 mmol/L (136-145)
== END ==
PROVIDERS: Visit Provider Obstetrics & Gynecology
DX: Z34.81 Encounter for supervision of other normal pregnancy, first trimester (principal)
CPT/HCPCS: 36415; 80053

== ENCOUNTER 2019-05-05 06:07 | Emergency (ER) | payer OTHER, SELFPAY ==
[2019-05-05 06:07] VITALS: BP 124/74; PULSE 93; RESP 16; TEMP 36.7; O2SAT 97; BMI 36.3
--- NOTE | 2019-05-05 06:20 | ED.DCSUM_ITS ---
History of Present Illness Chief Complaint: Nausea/Vomiting/Diarrhea Narrative: Patient is a 33-year-old female who presents with nausea vomiting and diarrhea. Symptoms began acutely a few hours before presentation. She reports nonbloody nonbilious emesis with episodes about every 30 minutes. She has had 3-4 episode s of diarrhea as well. She denies abdominal pain. She has had some mild rhinorrhea but otherwise has not been ill. No fevers. No cough. No muscle or joint aches. No sore throat. She does have sick contacts. She denies vaginal bleeding or pelvic pain. She is 18 weeks . Past Medical History - Allergies and Home Meds Allergies/Adverse Reactions: Allergies citalopram hydrobromide [From Celexa] Allergy (Verified 02/15/19 08:29) Hives Penicillins [PCN] Allergy (Verified 02/15/19 08:29) Hives tetanus immune globulin Allergy (Verified 02/15/19 08:29) Hives liraglutide [From Victoza] Adverse Reaction (Verified 02/15/19 08:29) Nausea/Vom/Diarrhea Primary Care Physician: Librado Ybarra DO [Primary Care Provider] - Past Medical History: - - Hypothyroidism, GERD Surgical History: appendectomy, cholecystectomy, - - Smoking Status: Former smoker Review of Systems All systems negative except as indicated General: Denies: Fever Eyes: Denies: Visual changes - bilaterally ENT: Denies: Bilateral ear pain Cardiovascular: Denies: Chest pain Respiratory: Denies: Dyspnea Gastrointestinal: Reports: Nausea, Vomiting, Diarrhea. Denies: Abdominal pain Genitourinary: Denies: Dysuria, Hematuria, Frequency Skin: Denies: Rash Neurological: Denies: Headache Allergy: Denies: Uticaria Physical Exam Vital Signs/Narrative: Vital Signs Temp Pulse Resp BP Pulse Ox 05/05/19 06:07 98.1 F 93 16 124/74 H 97 Inital Vital Signs reviewed: Yes General: Well nourished, Well developed Head: Normocephalic Eyes: EOMI ENT: Moist mucous membranes Neck: Supple Cardiovascular: Regular rate, Regular rhythm Respiratory: No distress, CTA bilaterally Abdomen: Soft, Nontender, Nondistended Extremities: Nontender Skin: Normal color Neurological: Alert Psychological: Normal affect Diagnostic/Tx/Re-eval - Medical Decision Making heart tones 140s. Patient was treated with IV fluids, Zofran, Imodium. She has had no further vomiting or diarrhea on reevaluation is resting comfortably on reevaluation. She has tolerated a p.o. challenge. She has normal vitals, no abdominal pain, benign abdominal exam. I do not feel any diagnostic work-up is necessary at this time as her presentation is consistent with a viral gastroenteritis or food poisoning. She was advised on supportive care. She was advised to follow-up as an outpatient. She understands to return for new or worsening symptoms and was discharged home. ED Disposition - Plan for ED Patient: Disposition: Home or Assisted Living Diagnosis: Nausea vomiting and diarrhea Instructions: VOMITING AND DIARRHEA, Nonspecific (Adult) Referrals: Librado Ybarra DO [Primary Care Provider] -
[2019-05-05] MEDS: 0.9% Normal Saline 1,000 ML 999 ML IV (06:26)
[2019-05-05] MEDS: Ondansetron 4 MG/2 ML Vial IV (06:26)
[2019-05-05] MEDS: Loperamide 2 MG Capsule 4 MG PO (06:26)
[2019-05-05 07:41] VITALS: BP 124/74; PULSE 81; RESP 18; O2SAT 99
== END 2019-05-05 07:43 | disposition home or self-care (01) ==
PROVIDERS: Emergency Provider Emergency Medicine; PCP Family Medicine
DX: O21.9 Vomiting of pregnancy, unspecified (principal); E03.9 Hypothyroidism, unspecified; K21.9 Gastro-esophageal reflux disease without esophagitis; O99.282 Endocrine, nutritional and metabolic diseases complicating pregnancy, second trimester; O99.612 Diseases of the digestive system complicating pregnancy, second trimester; R19.7 Diarrhea, unspecified; Z3A.18 18 weeks gestation of pregnancy; Z79.899 Other long term (current) drug therapy
CPT/HCPCS: 96361; 96374; 99283; J7030; J2405

== ENCOUNTER → 2019-05-17 09:45 | Outpatient (CLI) | payer OTHER, SELFPAY ==
[2019-05-05 06:07] VITALS: BMI 36.3
[2019-05-19 03:06] LABS: Comment Report (.); DIA MoM Value 0.48 (.); DIA Value-EIA 73.11 pg/mL (.); DSR (By Age) 256 (.); DSR (Second Trimester) 6064 (.); Gestat. Age Based On As provided (.); Gestational Age 19.7 WEEKS (.); Insulin Dep Diabetes No (.); Maternal Age At EDD 35.7 yr (.); hCG MoM 0.73 (.); hCG Value 14134 mIU/mL (.)
== END ==
PROVIDERS: PCP Family Medicine; Visit Provider Obstetrics & Gynecology
DX: Z34.82 Encounter for supervision of other normal pregnancy, second trimester (principal)
CPT/HCPCS: 36415; 82105; 82677; 84702

== ENCOUNTER → 2019-07-02 13:00 | Outpatient (CLI) | payer OTHER, SELFPAY ==
[2019-06-07 15:26] VITALS: BMI 36.3
[2019-07-02 13:38] LABS: Hematocrit 37.4 % (37-47); Hemoglobin 12.6 g/dL (12.0-15.0); Mean Corp Hgb Conc 33.7 g/dL (32-36); Mean Corpuscular Hgb 29.2 pg (27.0-32.0); Mean Corpuscular Volume 86.8 fL (81-99); Mean Platelet Vol. 11.1 fl (6.2-12.0); Platelet Count 168 K/mm3 (150-450); RBC Distribution Width CV 12.9 % (11.6-14.6); RBC Distribution Width SD 40.4 fl (35.1-43.9); Red Blood Count 4.31 M/mm3 (4.2-5.4); White Blood Count 9.5 K/mm3 (4.4-11.0)
[2019-07-02 14:04] LABS: Vitamin D,25 Hydroxy 31.4 ng/mL
[2019-07-02 14:13] LABS: Free T3 2.5 pg/mL (2.18-3.98); Glucose Challenge Gest 1H 50g 126 mg/dL (70-140); T4 Free Direct 0.82 ng/dL (0.76-1.46); Thyroid Stim Hormone (TSH) 1.27 uIU/mL (0.358-3.74)
== END ==
PROVIDERS: PCP Family Medicine; Referring Provider Obstetrics & Gynecology; Visit Provider Obstetrics & Gynecology
DX: Z34.82 Encounter for supervision of other normal pregnancy, second trimester (principal); E03.9 Hypothyroidism, unspecified; E55.9 Vitamin D deficiency, unspecified
CPT/HCPCS: 82306; 82950; 84439; 84443; 84481; 85027

== ENCOUNTER → 2019-08-26 16:31 | Outpatient (CLI) | payer OTHER, SELFPAY ==
[2019-06-07 15:26] VITALS: BMI 36.3
== END ==
PROVIDERS: PCP Family Medicine; Visit Provider Obstetrics & Gynecology
DX: R19.7 Diarrhea, unspecified (principal)
CPT/HCPCS: 87177; 87209; 87506

== ENCOUNTER → 2019-09-02 11:44 | Outpatient (CLI) | payer OTHER, SELFPAY ==
[2019-06-07 15:26] VITALS: BMI 36.3
[2019-09-02 12:14] LABS: ROM Internal Control Test YES-OK TO RESULT pt. (Internal QC); ROM Patient Test Negative (Negative)
[2019-09-02 12:23] LABS: Fetal Fibronectin POSITIVE
== END ==
PROVIDERS: PCP Family Medicine; Visit Provider Obstetrics & Gynecology
DX: Z34.83 Encounter for supervision of other normal pregnancy, third trimester (principal)
CPT/HCPCS: 82731; 84112

== ENCOUNTER 2019-09-12 15:50 | Outpatient (CLI) | payer OTHER, SELFPAY ==
[2019-06-07 15:26] VITALS: BMI 36.3
[2019-09-12 16:06] VITALS: BMI 38.5
[2019-09-12 16:13] VITALS: BP 138/78; PULSE 92; TEMP 36.7; O2SAT 98
[2019-09-12 16:28] VITALS: BP 140/78; PULSE 90
[2019-09-12 16:36] LABS: Bacteria 0 SEEN /hpf (None Seen); Mucous, Urine 0 SEEN /hpf (<or=2+); Red Blood Cells-Urine 0 SEEN /hpf (0-5); White Blood Cells 0 SEEN /hpf (0-5)
[2019-09-12] MEDS: Acetaminophen 500 MG Tablet 1000 MG PO (16:36)
[2019-09-12 16:39] LABS: Color, Urine Yellow (Yellow); Glucose, Dipstick Normal (Normal); Ketone-Dipstick Negative (Negative); Leukocyte Esterase-Dipstick Negative /ul (Negative); Nitrite-Dipstick Negative (Negative); Occult Blood-Urine Negative /ul (Negative); Protein-Dipstick Negative (Negative); Specific Gravity, Urine 1.005 (1.002-1.030); Urine Bilirubin Dipstick Negative (Negative); Urine Clarity Sl. Cloudy (Clear); Urine Urobilinogen Normal (Normal)
[2019-09-12 16:44] VITALS: BP 153/99; PULSE 84
[2019-09-12 16:45] VITALS: BP 127/57; PULSE 81
[2019-09-12 16:45] LABS: Squamous Epithelial Cells - UA 0-5 SEEN /hpf (5-10)
--- NOTE | 2019-09-17 08:11 | OB.TRI.NOTE ---
History of Present Illness Date of Service: 09/12/19 Was patient seen by the physician?: No Reason For Visit: R/O LABOR Final LUIS FERNANDO: 10/06/19 Final LUIS FERNANDO Source: US <20 weeks Gestational age: 36 Weeks and 4 Days History of Present Illness: 36+ week IUP presents with some contractions. PNC otherwise uneventful. Allergies citalopram hydrobromide [From Celexa] Allergy (Verified 09/12/19 16:08) Hives Penicillins [PCN] Allergy (Verified 09/12/19 16:08) Hives tetanus immune globulin Allergy (Verified 09/12/19 16:08) Hives liraglutide [From Victoza] Adverse Reaction (Verified 09/12/19 16:08) Nausea/Vom/Diarrhea - Pertinent Past Medical History Medical History: Past Medical History (Last Reviewed 03/18/18 @ 11:[address] Vahe Antoine MD) Anxiety and depression GERD (gastroesophageal reflux disease) Hypothyroidism Type 2 diabetes mellitus Surgical History: Past Surgical History (Last Reviewed 03/18/18 @ 11:[address] Vahe Antoine MD) H/O repair of right rotator cuff History of appendectomy History of tonsillectomy Hx of cholecystectomy Laboratory Studies: Laboratory Tests 09/12/19 Range/Units 16:15 Urine Color Yellow (Yellow) Urine Clarity Sl. Cloudy (Clear) Urine pH 7.0 (5.0 - 8.0) Ur Specific [place] 1.005 (1.002-1.030) Urine Protein Negative (Negative) mg/dl Urine Glucose (UA) Normal (Normal) mg/dl Urine Ketones Negative (Negative) mg/dl Urine Occult Blood Negative (Negative) /ul Urine Nitrite Negative (Negative) Urine Bilirubin Negative (Negative) mg/dL Urine Urobilinogen Normal (Normal) mg/dl Ur Leukocyte Esterase Negative (Negative) /ul Urine RBC 0 SEEN (0-5) /hpf Urine WBC 0 SEEN (0-5) /hpf Ur Squamous Epith Cells 0-5 SEEN (5-10) /hpf Urine Bacteria 0 SEEN (None Seen) /hpf Urine Mucus 0 SEEN (<or=2+) /hpf Physical Exam Vitals: Vital Signs Temp Pulse BP Pulse Ox 98.1 F 81 127/57 H 98 09/12/19 16:13 09/12/19 16:45 09/12/19 16:45 09/12/19 16:13 NST - FHR Rate Baby A NST Reactive:: Yes FHR Category:: Category I Impression/Plan 36+ week IUP with transient contractions. Reactive NST. No cervical change after observation. Routine instructions given.
== END 2019-09-12 17:40 | disposition home or self-care (01) ==
LOC: WPOUT 15:56 → OBT 15:57
PROVIDERS: PCP Family Medicine; Referring Provider Obstetrics & Gynecology; Visit Provider Obstetrics & Gynecology
DX: O62.9 Abnormality of forces of labor, unspecified (principal); Z3A.36 36 weeks gestation of pregnancy; O99.283 Endocrine, nutritional and metabolic diseases complicating pregnancy, third trimester; E03.9 Hypothyroidism, unspecified; O99.613 Diseases of the digestive system complicating pregnancy, third trimester; O99.343 Other mental disorders complicating pregnancy, third trimester; F32.9 Major depressive disorder, single episode, unspecified; O24.113 Pre-existing type 2 diabetes mellitus, in pregnancy, third trimester; E11.9 Type 2 diabetes mellitus without complications; Z79.899 Other long term (current) drug therapy; K21.9 Gastro-esophageal reflux disease without esophagitis
CPT/HCPCS: 59025; 81001; 87086; 87088; 99218; G0378

== ENCOUNTER → 2019-09-14 15:16 | Outpatient (CLI) | payer OTHER, SELFPAY ==
[2019-09-12 16:06] VITALS: BMI 38.5
[2019-09-14 16:11] LABS: Hemoglobin 13.3 g/dL (12.0-15.0); Mean Corp Hgb Conc 34.1 g/dL (32-36); Mean Corpuscular Hgb 29.4 pg (27.0-32.0); Mean Corpuscular Volume 86.1 fL (81-99); Mean Platelet Vol. 11.9 fl (6.2-12.0); Platelet Count 173 K/mm3 (150-450); RBC Distribution Width CV 13.4 % (11.6-14.6); RBC Distribution Width SD 41.9 fl (35.1-43.9); Red Blood Count 4.53 M/mm3 (4.2-5.4); White Blood Count 9.3 K/mm3 (4.4-11.0)
[2019-09-14 16:20] LABS: ALB/GLOB Ratio 0.8 RATIO (0.9-2.4); AST(SGOT) 13 U/L (15-37); Alanine Aminotransfer ALT/SGPT 19 U/L (13-56); Albumin, Serum 2.9 g/dL (3.2-5.0); Alkaline Phosphatase 106 U/L (45-117); Anion Gap 9 (5-15); BUN 7 mg/dL (7-18); BUN/Creat Ratio 18.1 RATIO (10-20); Chloride 110 mmol/L (98-107); Creatinine, Serum 0.39 mg/dL (0.55-1.02); EST Glomerular Filtration Rate 200 mL/min (>60); Est Glom Filt Rate - Afr Amer 242 mL/min (>60); Globulin 3.7 g/dL (2.2-4.2); Glucose 94 mg/dL (74-106); Potassium 3.6 mmol/L (3.5-5.1); Protein, Total 6.6 g/dL (6.4-8.2); Protein, Urine (Random) < 6.0 mg/dL (<11.9); Sodium Level 141 mmol/L (136-145); Uric Acid 3.5 mg/dL (2.6-6.0)
== END ==
PROVIDERS: PCP Family Medicine; Visit Provider Obstetrics & Gynecology
DX: Z34.83 Encounter for supervision of other normal pregnancy, third trimester (principal); Z36.85 Encounter for antenatal screening for Streptococcus B
CPT/HCPCS: 36415; 80053; 82570; 84156; 84550; 85027; 87081

== ENCOUNTER 2019-09-15 15:45 | Outpatient (CLI) | payer OTHER, SELFPAY ==
[2019-09-15] VITALS (13 sets, daily range): BP systolic 124–144; BP diastolic 68–79; PULSE 73–87; TEMP 36.4; O2SAT 97–98; BMI 38.4
--- NOTE | 2019-09-15 17:23 | HP.PCM_ITS ---
- Problem List (1) 37 weeks gestation of Status: Acute History Date of Admission: 09/15/19 Final LUIS FERNANDO: 10/06/19 Final LUIS FERNANDO Source: US <20 weeks Gestational age: 37 Weeks and 0 Days History of this : This is a 33 year-old, G [2], P [1], at 37 weeks gestational age with hx prior section with gestational HTN presenting with headache, despite Tylenol and Fiorecet, and blurred vision. + FM, no LOF or VB. Has occasional [place] contractions. Medical History: Medical History (Last Reviewed 03/18/18 @ 11:[address] Vahe Antoine MD) Anxiety and depression F41.9, F32.9 GERD (gastroesophageal reflux disease) K21.9 Hypothyroidism E03.9 Type 2 diabetes mellitus E11.9 Surgical History: Surgical History (Last Reviewed 03/18/18 @ 11:[address] Vahe Antoine MD) H/O repair of right rotator cuff Z98.890 History of appendectomy Z90.49 History of tonsillectomy Z90.89 Hx of cholecystectomy Z90.49 Allergies citalopram hydrobromide [From Celexa] Allergy (Verified 09/12/19 16:08) Hives Penicillins [PCN] Allergy (Verified 09/12/19 16:08) Hives tetanus immune globulin Allergy (Verified 09/12/19 16:08) Hives liraglutide [From Victoza] Adverse Reaction (Verified 09/12/19 16:08) Nausea/Vom/Diarrhea Home Medications: Home Medications Omeprazole [Prilosec] 20 mg PO DAILY 10/26/15 Levothyroxine [Synthroid] 50 mcg PO DAILY 05/05/19 Sertraline HCl [Zoloft] 100 mg PO DAILY 05/05/19 docusate sodium 100 mg capsule 100 mg PO DAILY 06/07/19 prenat.vits,mckenzie,fey-lxsn-nyhre 1 tab PO DAILY 06/07/19 Doxylamine Succinate [Unisom] 25 mg PO QHS 09/12/19 Vitamin D3/Folic Acid [Noxifol-D3 2,500 Unit-1 mg Tab] 4,000 unit PO DAILY 09/12/19 Smoking Status: Former smoker Alcohol: None Substance Use Type: Anxiety Medications, Sleep Aides Number of Fetus(es): 1 NST - FHR Rate Baby A Baseline: 155 Variability:: Moderate Accelerations:: 15 x 15 Decelerations:: None NST Reactive:: Yes FHR Category:: Category I Uterine Activity:: 0/10 History Past Pregnancies: Past Pregnancies Delivery Date Name GA/ Weeks Outcome Route Wt Infant Sex Labor Length Anesthesia Delivery Location Provider FOB Labs: Mom's Problem List Problem Status Onset Code 37 weeks gestation of Acute Z3A.37 Mom's Labs & Results 09/15/19 17:00 U Random Total Protein Pending Urine Creatinine Pending Protein/Creatinin Ratio Pending Course Did the patient receive Yes care? Labs Blood Type: O RH: POSITIVE RPR/VDRL/Syphilis Nonreactive HbSAg Negative Date Done: 02/24/19 Chlamydia Negative Gonorrhea Negative HIV/AIDS Non-Reactive Group B Strep: Not Done Other Lab Procedures/Results/ GBS pending Comments: Social History Alleged father Elias Wasserman Smoking No Smoking Status Former smoker Substance Use Type Anxiety Medications,Sleep Aides How long have you used unisom and zoloft substances (years)? What date/time did you last 09/14/19 use any of the above? Describe any other labor & delivery plans:: Evaluate for preeclampsia Review of Systems Cardiovascular: Denies: Chest Pain Respiratory: Reports: Shortness of Breath Gastrointestinal: Reports: Nausea. Denies: Abdominal Pain Physical Exam Vitals: Vital Signs Temp Pulse BP Pulse Ox 97.6 F L 77 141/76 H 98 09/15/19 15:57 09/15/19 16:57 09/15/19 16:57 09/15/19 15:57 General: Alert, Oriented x3, Cooperative, No apparent distress HEENT: Atraumatic, Normocephalic Cardiovascular: Regular rate, Regular Rhythm, Normal S1, Normal S2 Lungs: Clear to auscultation, Normal air movement, No rhonchi, No wheeze, No rales Abdomen: Soft, Non Tender, Non-Distended, Gravid Extremities:: No edema Neurological: Deep Tendon Reflexes 2+/4 and Symmetrical, Neuro grossly intact, - - No clonus, Estimated gestational size: Appropriate for gestational size Assessment/Plan All Active Problems (Last Reviewed 03/18/18 @ 11:[address] Vaeh Antoine MD) 37 weeks gestation of (Acute) delivery delivered (Acute) This is a 33 year-old, G [2], P [1], at 37 weeks gestational age with gestational HTN r/o preeclampsia. -Observation at this time -BPs mildly elevated however has symptoms -Preeclamptic labs -NPO -IV Reglan for headache, if no resolution of headache proceed with repeat section and IV magnesium. Procedure Criteria Procedure Type: Essential Procedure Essential: Yes Criteria Statement: On 06/15/2019 the [facility] ([facility]) Public Order signed by [facility] Director Mikayla Dominguez M.D., regarding the Management of Non-Essential Surgeries and Procedures for the purpose of preserving Personal Protective Equipment (PPE) and critical hospital capacity and resources within [place] went into effect as of 06/16/2019 at 5:00PM. According to the [facility] Public Order: This action will remain in full force and effect until the State of Emergency declared by the Governor no longer exists or the Director of the [facility] rescinds or modifies this Order. This [facility] order stated all non-essential or elective surgeries and procedures that utilize PPE should be delayed unless there is undue risk to the current or future health of a patient. After reviewing the aforementioned [facility] Public Order and the patient's clinical case, I have determined that the scheduled procedure meets the criteria to go forward. Risk to Patient if Procedure Delayed: Threat to patient's life if surgery or procedure is delayed
[2019-09-15] MEDS: Metoclopramide 10 MG/2 ML Vial 5 MG IV (17:39)
[2019-09-15 17:51] LABS: Hematocrit 39.4 % (37-47); Hemoglobin 13.5 g/dL (12.0-15.0); Mean Corp Hgb Conc 34.3 g/dL (32-36); Mean Corpuscular Hgb 29.7 pg (27.0-32.0); Mean Corpuscular Volume 86.6 fL (81-99); Mean Platelet Vol. 11.6 fl (6.2-12.0); Platelet Count 180 K/mm3 (150-450); RBC Distribution Width CV 13.4 % (11.6-14.6); RBC Distribution Width SD 42.5 fl (35.1-43.9); Red Blood Count 4.55 M/mm3 (4.2-5.4); White Blood Count 9.9 K/mm3 (4.4-11.0)
[2019-09-15 18:04] LABS: Protein, Urine (Random) < 6.0 mg/dL (<11.9)
[2019-09-15 18:04] LABS: AST(SGOT) 15 U/L (15-37); Alanine Aminotransfer ALT/SGPT 19 U/L (13-56); Creatinine, Serum 0.39 mg/dL (0.55-1.02); EST Glomerular Filtration Rate 200 mL/min (>60); Est Glom Filt Rate - Afr Amer 242 mL/min (>60); Estimated Creatinine Clearance 173.86 ml/min; Uric Acid 3.5 mg/dL (2.6-6.0)
[2019-09-15 18:08] LABS: Prothrombin Time (Protime)PT. 12.8 SECONDS (11.7-14.9)
[2019-09-15 18:09] LABS: Partial Thromboplast Time 28.8 Seconds (24.1-36.2)
== END 2019-09-15 18:45 | disposition home or self-care (01) ==
LOC: WPOUT 15:49 → WP 15:50
PROVIDERS: PCP Family Medicine; Referring Provider Obstetrics & Gynecology; Visit Provider Obstetrics & Gynecology
DX: O13.3 Gestational [pregnancy-induced] hypertension without significant proteinuria, third trimester (principal); Z3A.37 37 weeks gestation of pregnancy; O99.343 Other mental disorders complicating pregnancy, third trimester; F41.9 Anxiety disorder, unspecified; F32.9 Major depressive disorder, single episode, unspecified; O99.613 Diseases of the digestive system complicating pregnancy, third trimester; O99.283 Endocrine, nutritional and metabolic diseases complicating pregnancy, third trimester; O24.113 Pre-existing type 2 diabetes mellitus, in pregnancy, third trimester; E11.9 Type 2 diabetes mellitus without complications; E03.9 Hypothyroidism, unspecified; K21.9 Gastro-esophageal reflux disease without esophagitis; O34.219 Maternal care for unspecified type scar from previous cesarean delivery; Z79.899 Other long term (current) drug therapy
CPT/HCPCS: 96374; 36415; 59025; 59050; 82565; 82570; 84156; 84450; 84460; 84550; 85027; 85610; 85730; 86850; 86900; 86901; 99218; G0378

== ENCOUNTER 2019-09-17 09:27 | Inpatient (IN) | payer OTHER, SELFPAY ==
[2019-06-07 15:26] VITALS: BMI 36.3
[2019-09-15 15:55] VITALS: BMI 38.4
[2019-09-17] VITALS (36 sets, daily range): BP systolic 104–160; BP diastolic 53–91; PULSE 63–93; RESP 14–18; TEMP 36.2–37.2; O2SAT 95–100; BMI 38.4
--- NOTE | 2019-09-17 08:02 | OB.TRI.HP_ITS ---
- Problem List (1) Vision changes Status: Acute (2) Headache Status: Acute Qualifiers: Headache chronicity pattern: chronic headache History of Present Illness Date of Service: 09/17/19 Was patient seen by the physician?: Yes Reason For Visit: HEADACHE Date of Service: 09/17/19 Final LUIS FERNANDO: 10/06/19 Final LUIS FERNANDO Source: US <20 weeks Gestational age: 37 Weeks and 2 Days History of Present Illness: Patient presents to triage for blurred vision with a headache. Reports was seen in the OB office 09/13 for elevated blood pressures with headache at that time. Pre-e workup done 09/13 which was negative. Had previously been managing headaches with Tylenol, but was prescribed Fioricet. States she has not tried it yet. BP at home 150s/80s. First BP on arrival to 130/78, but on recheck is 113/65. Denies use of Tylenol or Fioricet prior to arrival to . Allergies citalopram hydrobromide [From Celexa] Allergy (Verified 09/12/19 16:08) Hives Penicillins [PCN] Allergy (Verified 09/12/19 16:08) Hives tetanus immune globulin Allergy (Verified 09/12/19 16:08) Hives liraglutide [From Victoza] Adverse Reaction (Verified 09/12/19 16:08) Nausea/Vom/Diarrhea - Pertinent Past Medical History Medical History: Past Medical History (Last Reviewed 03/18/18 @ 11:[address] Vahe Antoine MD) Anxiety and depression GERD (gastroesophageal reflux disease) Hypothyroidism Type 2 diabetes mellitus Surgical History: Past Surgical History (Last Reviewed 03/18/18 @ 11:[address] Vahe Antoine MD) H/O repair of right rotator cuff History of appendectomy History of tonsillectomy Hx of cholecystectomy Review of Systems Constitutional: Denies: Chills, Fever, Weight Change Eyes: Reports: Blurred vision HEENT: Reports: Head Aches. Denies: Sinus Congestion, Sinus Drainage Cardiovascular: Denies: Chest Pain, Palpitations Respiratory: Denies: Cough, Shortness of breath at rest, Sputum production Gastrointestinal: Denies: Abdominal Pain, Nausea, Vomiting Genitourinary: Denies: Dysuria Musculoskeletal: Denies: Joint Pain, Joint Tenderness Skin: Denies: Rash, Wounds Neurological: Denies: Numbness, Tingling, Focal weakness Psychiatric: Denies: Anxiety, Depression, Homicidal Ideations, Suicidal Ideations Hematologic/ Lymphatic: Denies: Easy Bruising, Easy Bleeding Physical Exam Vitals: Vital Signs Pulse BP 88 113/65 09/17/19 07:18 09/17/19 07:18 General: Alert, Oriented x3, No apparent distress HEENT: Atraumatic, Normocephalic. Negative for: Thyromegaly, Lymphadenopathy Cardiovascular: Regular rate, Regular Rhythm Lungs: Clear to auscultation Abdomen: Bowel Sounds Present, Gravid Neurological: Deep Tendon Reflexes 2+/4 and Symmetrical, Neuro grossly intact [employer] FU[employer] HOSE: Normal external genitalia. Negative for: Vulvar lesions Estimated gestational size: Appropriate for gestational size NST - FHR Rate Baby A Baseline: 140 Variability:: Moderate Accelerations:: 15 x 15 Decelerations:: None NST Reactive:: Yes FHR Category:: Category I Uterine Activity:: quiet Impression/Plan A/P: Patient of Dr. Yanes in triage with complaints of headache, vision changes and elevated blood pressures at home Pre-eclampsia workup 09/14/19 was negative. At that time given Fioricet for chronic headache, previously managed with Tylenol Blood pressure stable 113/65 Will give 1000mg of Tylenol and reassess headache and vision changes after
[2019-09-17 08:14] LABS: Protein, Urine (Random) 28.1 mg/dL (<11.9); Protein:Creat Ratio 112 mg/g CRE (0-200)
[2019-09-17] MEDS: Acetaminophen 500 MG Tablet 1000 MG PO ×2 (08:19→23:50)
[2019-09-17] MEDS: Lactated Ringers 1,000 ML 50 ML IV (10:00)
[2019-09-17 10:24] LABS: Absolute Lymphocyte Count 1.65 X10^3/uL (0.83-4.51); Absolute Neutrophil Count 7.4 X10^3/uL (2.0-7.7); Basophil# 0.02 X10^3/uL; Basophil% 0.2 % (0-1); Eosinophil# 0.08 X10^3/uL; Eosinophils% 0.8 % (0-5); Hematocrit 37.7 % (37-47); Hemoglobin 12.7 g/dL (12.0-15.0); Lymphocyte # 1.65 X10^3/ul (4.0); Lymphocyte % 16.8 % (19-41); Mean Corp Hgb Conc 33.7 g/dL (32-36); Mean Corpuscular Hgb 29.6 pg (27.0-32.0); Mean Corpuscular Volume 87.9 fL (81-99); Mean Platelet Vol. 11.4 fl (6.2-12.0); Monocyte# 0.62 X10^3/uL; Monocyte% 6.3 % (0-10); NRBC Flagged by Analyzer 0 % (0-5); Neutrophil # 7.41 X10^3/uL (2.7-7.7); Neutrophil % 75.3 % (47-70); Platelet Count 168 K/mm3 (150-450); RBC Distribution Width CV 13.8 % (11.6-14.6); RBC Distribution Width SD 43.6 fl (35.1-43.9); Red Blood Count 4.29 M/mm3 (4.2-5.4); White Blood Count 9.8 K/mm3 (4.4-11.0)
[2019-09-17 10:29] LABS: Prothrombin Time (Protime)PT. 12.8 SECONDS (11.7-14.9)
[2019-09-17 10:30] LABS: Partial Thromboplast Time 29.3 Seconds (24.1-36.2)
[2019-09-17 10:45] LABS: ALB/GLOB Ratio 0.8 RATIO (0.9-2.4); AST(SGOT) 13 U/L (15-37); Alanine Aminotransfer ALT/SGPT 16 U/L (13-56); Albumin, Serum 2.8 g/dL (3.2-5.0); Alkaline Phosphatase 108 U/L (45-117); Anion Gap 8 (5-15); BUN 5 mg/dL (7-18); BUN/Creat Ratio 13.8 RATIO (10-20); Calcium,Total 8.8 mg/dL (8.5-10.1); Chloride 111 mmol/L (98-107); Creatinine, Serum 0.36 mg/dL (0.55-1.02); EST Glomerular Filtration Rate 215 mL/min (>60); Est Glom Filt Rate - Afr Amer 260 mL/min (>60); Estimated Creatinine Clearance 188.35 ml/min; Globulin 3.7 g/dL (2.2-4.2); Glucose 78 mg/dL (74-106); Potassium 3.7 mmol/L (3.5-5.1); Protein, Total 6.5 g/dL (6.4-8.2); Sodium Level 139 mmol/L (136-145)
[2019-09-17] MEDS: Magnesium Sulfate 4gm/100mL 4 GM/100 ML IV.SOLN. IV (12:43)
[2019-09-17] MEDS: Magnesium Sulfate 20 GM/500 ML BAG IV ×2 (13:16→23:49)
[2019-09-17] MEDS: Lactated Ringers 1,000 ML 999 ML IV (15:39)
[2019-09-17] MEDS: Sodium Citrate/Citric Acid 30 ML UDC PO (16:04)
--- NOTE | 2019-09-17 17:21 | HP.PCM_ITS ---
- Problem List (1) Preeclampsia Status: Acute Qualifiers: Trimester: third trimester Qualified Code(s): O14.93 - Unspecified pre- eclampsia, third trimester (2) 37 weeks gestation of Status: Acute History Date of Admission: 09/15/19 Final LUIS FERNANDO: 10/06/19 Final LUIS FERNANDO Source: US <20 weeks Gestational age: 37 Weeks and 2 Days History of this : This is a 33 year-old, G [], P [], at 37 weeks gestational age. Medical History: Medical History (Last Reviewed 03/18/18 @ 11:[address] Vahe Antoine MD) Anxiety and depression F41.9, F32.9 GERD (gastroesophageal reflux disease) K21.9 Hypothyroidism E03.9 Type 2 diabetes mellitus E11.9 Surgical History: Surgical History (Last Updated 09/17/19 @ 17:[address] Tanesha Johnson MD) Previous section Z98.891 2019 H/O repair of right rotator cuff Z98.890 History of appendectomy Z90.49 History of tonsillectomy Z90.89 Hx of cholecystectomy Z90.49 Allergies citalopram hydrobromide [From Celexa] Allergy (Verified 09/12/19 16:08) Hives Penicillins [PCN] Allergy (Verified 09/12/19 16:08) Hives tetanus immune globulin Allergy (Verified 09/12/19 16:08) Hives liraglutide [From Victoza] Adverse Reaction (Verified 09/12/19 16:08) Nausea/Vom/Diarrhea Home Medications: Home Medications Omeprazole [Prilosec] 20 mg PO DAILY 10/26/15 Levothyroxine [Synthroid] 50 mcg PO DAILY 05/05/19 Sertraline HCl [Zoloft] 100 mg PO DAILY 05/05/19 docusate sodium 100 mg capsule 100 mg PO DAILY 06/07/19 prenat.vits,mckenzie,[id number] 1 tab PO DAILY 06/07/19 Doxylamine Succinate [Unisom] 25 mg PO QHS 09/12/19 Vitamin D3/Folic Acid [Noxifol-D3 2,500 Unit-1 mg Tab] 4,000 unit PO DAILY 09/12/19 Smoking Status: Former smoker Alcohol: None Substance Use Type: Anxiety Medications, Sleep Aides Number of Fetus(es): 1 History Past Pregnancies: Past Pregnancies Delivery Date Name GA/ Weeks Outcome Route Wt Sex Labor Length Anesthesia Delivery Location Provider FOB 05/2018 [place] 40 gHTN, failed IOL, 5cm for more than 12 hours [id number] M 30 Epidural [facility] Micky Griffin Labs: Mom's Problem List Problem Status Onset Code Vision changes Acute H53.9 Headache Acute R51 Preeclampsia Acute O14.90 Mom's Labs & Results 09/17/19 09/17/19 09/17/19 08:00 10:00 10:00 WBC 9.8 RBC 4.29 Hgb 12.7 Hct 37.7 MCV 87.9 MCH 29.6 MCHC 33.7 RDW Std Deviation 43.6 RDW Coeff of Tania 13.8 Plt Count 168 MPV 11.4 Immature Gran % (Auto) 0.600 Neut % (Auto) 75.3 H Lymph % (Auto) 16.8 L [place] % (Auto) 6.3 Eos % (Auto) 0.8 Baso % (Auto) 0.2 Absolute Neuts (auto) 7.4 Absolute Lymphs (auto) 1.65 Nucleated RBC % 0 PT INR APTT Sodium 139 Potassium 3.7 Chloride 111 H Carbon Dioxide 20.0 L Anion Gap 8 BUN 5 L Creatinine 0.36 L Estim Creat Clear Calc 188.35 Est GFR (MDRD) Af Amer 260 Est GFR (MDRD) Non-Af 215 BUN/Creatinine Ratio 13.8 Glucose 78 Calcium 8.8 Total Bilirubin 0.30 AST 13 L ALT 16 Alkaline Phosphatase 108 Total Protein 6.5 Albumin 2.8 L Globulin 3.7 Albumin/Globulin Ratio 0.8 L U Random Total Protein 28.1 H Urine Creatinine 251.00 Protein/Creatinin Ratio 112 COVID-19 (JO ANN) 09/17/19 09/17/19 10:00 10:05 WBC RBC Hgb Hct MCV MCH MCHC RDW Std Deviation RDW Coeff of Tania Plt Count MPV Immature Gran % (Auto) Neut % (Auto) Lymph % (Auto) [place] % (Auto) Eos % (Auto) Baso % (Auto) Absolute Neuts (auto) Absolute Lymphs (auto) Nucleated RBC % PT 12.8 INR 1.0 APTT 29.3 Sodium Potassium Chloride Carbon Dioxide Anion Gap BUN Creatinine Estim Creat Clear Calc Est GFR (MDRD) Af Amer Est GFR (MDRD) Non-Af BUN/Creatinine Ratio Glucose Calcium Total Bilirubin AST ALT Alkaline Phosphatase Total Protein Albumin Globulin Albumin/Globulin Ratio U Random Total Protein Urine Creatinine Protein/Creatinin Ratio COVID-19 (JO ANN) Not Detected Course Did the patient receive Yes care? Labs Blood Type: O RH: POSITIVE RPR/VDRL/Syphilis Nonreactive Rubella status Immune HbSAg Negative Date Done: 02/24/19 Chlamydia Negative Gonorrhea Negative HIV/AIDS Non-Reactive Group B Strep: Not Done Current Obstetrical History Gestational Diabetes No Incompetent Cervix No Infertility No IUGR No Macrosomia No Hypertension/Pre-eclampsia Yes Placenta Previa/Abruption No PTL/PROM No Uterine anomaly No Oligohydramnios No Polyhydramnios No Multiple gestation No Past Medical History Asthma No Diabetes No Hypertension No Heart disease No Mitral valve prolapse No Neurologic/Seizure disorder/ No Migraines Kidney disease No Liver disease No Varicosities No Clotting disorders/Hx of DVT No Thyroid Dysfunction Yes: Hypothyroidism Other medical diseases No Psychiatric disorders Yes: anxiety depression Major trauma No Abnormal PAP smear No Sleep apnea No Mammogram in the last 2 years No Social History Marital Status: Alleged father Elias Hx Smoking Yes Smoking Status Former smoker Substance Use Type Anxiety Medications,Sleep Aides How long have you used unisom, zoloft substances (years)? What date/time did you last see med rec use any of the above? Expected Infant Delivery Method: RUSS Section Number of Visits: 11 Review of Systems Eyes: Reports: Vision Change HEENT: Reports: Head Aches Cardiovascular: Reports: Edema. Denies: Chest Pain, Chest Tightness Respiratory: Denies: Shortness of Breath Gastrointestinal: Denies: Abdominal Pain, Nausea, Vomiting Physical Exam Vitals: Vital Signs Temp Pulse Resp BP 97.5 F L 88 18 148/88 H 09/17/19 15:00 09/17/19 15:50 09/17/19 15:00 09/17/19 15:50 General: Alert, Oriented x3, Cooperative, No apparent distress HEENT: Atraumatic, Normocephalic Cardiovascular: Regular rate, Regular Rhythm, Normal S1, Normal S2 Lungs: Clear to auscultation, Normal air movement Abdomen: Soft, Non Tender, Non-Distended, Gravid Extremities:: Other - non pitting LE edema, + 2 b/l LE DTRs and brisk Neurological: Deep Tendon Reflexes 2+/4 and Symmetrical, Neuro grossly intact, - - no clonus, brisk reflexes Estimated gestational size: Appropriate for gestational size Presentation: Cephalic Assessment/Plan All Active Problems (Last Reviewed 03/18/18 @ 11:[address] Vahe Antoine MD) delivery delivered (Acute) 37 weeks gestation of (Acute) Vision changes (Acute) Headache (Acute) Preeclampsia (Acute) This is a 33 year-old, G [2], P [1], at 37.2 weeks gestational age. Proceed with repeat preeclampsia Headache not resolved with Reglan, start Magnesium IV Procedure Criteria Procedure Type: Essential Procedure Essential: Yes Criteria Statement: On 06/15/2019 the [facility] ([facility]) Public Order signed by [facility] Director Mikayla Dominguez M.D., regarding the Management of Non-Essential Surgeries and Procedures for the purpose of preserving Personal Protective Equipment (PPE) and critical hospital capacity and resources within [place] went into effect as of 06/16/2019 at 5:00PM. According to the [facility] Public Order: This action will remain in full force and effect until the State of Emergency declared by the Governor no longer exists or the Director of the [facility] rescinds or modifies this Order. This [facility] order stated all non-essential or elective surgeries and procedures that utilize PPE should be delayed unless there is undue risk to the current or future health of a patient. After reviewing the aforementioned [facility] Public Order and the patient's clinical case, I have determined that the scheduled procedure meets the criteria to go forward. Risk to Patient if Procedure Delayed: Threat to patient's life if surgery or procedure is delayed
[2019-09-17] MEDS: Methylergonovine 0.2 MG/ML Ampul IM (17:44)
--- NOTE | 2019-09-17 18:32 | OP.PCM_ITS ---
Problem List (1) Preeclampsia Status: Acute Qualifiers: Trimester: third trimester Qualified Code(s): O14.93 - Unspecified pre- eclampsia, third trimester (2) 37 weeks gestation of Status: Acute Delivery Classification: RUSS Final LUIS FERNANDO: 10/06/19 Final LUIS FERNANDO Source: US <20 weeks Gestational age: 37 Weeks and 2 Days doctor who attended delivery (if requested by OB): Renee Mistry credit processor: Mel Reyes Type of Anesthesia:: Spinal Date of Procedure: 09/17/19 Pre-Operative Diagnosis: 1. 37-2/7 weeks gestation. 2. Preeclampsia. 3. Previous section Post-Operative Diagnosis: Same Indications: 33-year-old 2 para 1 at 37-2/7 weeks gestational age who presents for recurrent persistent headache. She was previously diagnosed with gestational hypertension and was scheduled for section however given recurrence and persistence of headache she was started on IV magnesium and proceeded with repeat section. Procedural risks, benefits, indications were reviewed and informed consent was obtained. Indications for : Repeat Elective Description of Procedure: The patient was taken to the operating room and spinal analgesia was administered. She is placed in a dorsal supine position with left lateral tilt. The perineum and abdomen were prepped and draped in sterile fashion. And the spinal was found to be adequate. A Pfannenstiel incision was made using a scalpel and brought down to incise the subcutaneous tissue and rectus fascia at the midline. Subcutaneous tissue was bluntly dissected off the fascia laterally. The fascial incision was dissected laterally and cephalad using curved Paulson scissors. The superior leaflet of the rectus fascia was grasped using Angela clamps and bluntly dissected and sharply dissected from the underlying rectus muscle. In a similar fashion the inferior rectus fascia was dissected from the underlying muscle. The rectus muscles were bluntly at the midline. The peritoneum was identified and entered [sharply]. The bl adder blade was placed into the abdomen and the vesicouterine peritoneal fold identified. The fold was incised and a bladder flap created. Bladder blade was then repositioned to the abdomen. A low transverse hysterotomy was made using the [Metzenbaum scissors] to level of the membranes. The hysterotomy was extended bluntly cephalad and caudad. The membranes were then ruptured revealing clear fluid. The head was elevated and brought to the level of the hysterotomy and the infant delivered revealing vigorous [female] . The cord was doubly clamped and cut after 60 seconds. The infant was passed to awaiting [nursery personnel]. The placenta was [expressed] from the uterus and appeared intact on inspection. The uterus was exteriorized and cleared of debris. The hysterotomy was then repaired using 0 Vicryl running lock suture. IM Methergine was given for uterine atony with hemorrhage. A second imbricating layer was also placed for additional hemostasis with hemostasis obtained. The bladder blade was removed. The anterior cul-de-sac was cleared of debris. The peritoneum and rectus muscles were reapproximated using 2-0 Vicryl running suture. The rectus fascia was closed using 0 Vicryl running suture. Small capillary bleeding controlled using the Bovie device. The subcutaneous tissue was reapproximated using 2-0 Vicryl. The skin was closed using 4-0 Monocryl subcuticularly by the [employer] under my supervision. A silver Mepilex occlusive dressing was placed over the incision. The fundus was firm. The patient was then transferred to the recovery room without complication. She tolerated the procedure well. Sponge, instrument, and needle counts were correct ?2. Amniotic Membrane Rupture Type: Artificial Amniotic Fluid Description: Clear Placenta Disposition: [facility] Drain: Nobles to straight drain Cord Entanglement: None Nuchal Cord Compression: Without compression Cord Vessel Description: 3 Vessels Esitmated Blood Loss (ml): 1200 ml Gender: Female (1 minute): 8 - Weight 2880g (5 minute): 9 Delayed cord clamping: Yes Antibiotic Given: - - Clindamycin 900mg, Gentamicin 5mg/kg Pt instructed on risks of surgery: Bleeding, Anesthesia Risks, Infection, Need for Future C-Sections, Injury to surrounding structure(s) including bowel and bladder Complications: None - Admit VTE Documentation VTE Present on Admission: No VTE Mechan Device Prophylaxis: SCD's VTE Pharm Prophylaxis ordered?: Yes
--- NOTE | 2019-09-17 18:44 | DCINST_ITS ---
<Arnold Johnson,Summer - Last Filed: 09/17/19 18:44> Discharge Diet: No Restrictions Discharge Activity: Return to Normal Activity, May not drive while taking narcotic pain medications., May Not Shower, - - Nothing in the vaginal for 4-6 weeks May resume sexual activity in: 4-6 weeks Lifting Restrictions: 10-20lb Call your doctor if your incision/area has: Continuous Slow Oozing, Sudden Increased Bleeding, Increased Pain/ Swelling, Increased Redness, Foul Smelling Discharge Suture Line Care: Avoid Pulling/Pushing Remove Dressing in (days):: 3 - on Friday Cleanse incision/area with: Soap & Water Additional Instructions: If you experience any of the following, contact your healthcare provider. * Bleeding that soaks a pad every hour for 2 hours * Fever 100.4 or higher * Unrelieved incision or abdominal pain * Swelling, redness, discharge or bleeding from your incision or episiotomy site * Your incision begins to separate * Problems urinating (including inability to urinate or burning while urinating). * Visual changes * Severe headache * Flu-like symptoms * Pain or redness in one of both of your breasts * Pain, warmth, tenderness or swelling in your legs, especially the calf area * Frequent nausea and vomiting * Symptoms of depression or anxiety If you experience any of the following, call 911 or go to the nearest Emergency Room. * Chest pain * Problems breathing * Seizure activity * Partial or complete paralysis of a body part, slurred speech, weakness or drooping of the face, or a sudden inability to walk or hold your balance Allergies/Adverse Reactions: Allergies citalopram hydrobromide [From Celexa] Allergy (Verified 09/12/19 16:08) Hives Penicillins [PCN] Allergy (Verified 09/12/19 16:08) Hives tetanus immune globulin Allergy (Verified 09/12/19 16:08) Hives liraglutide [From Victoza] Adverse Reaction (Verified 09/12/19 16:08) Nausea/Vom/Diarrhea Medications to take at Discharge Omeprazole [Prilosec] 20 mg PO DAILY 10/26/15 Levothyroxine [Synthroid] 50 mcg PO DAILY 05/05/19 Sertraline HCl [Zoloft] 100 mg PO DAILY 05/05/19 docusate sodium 100 mg capsule 100 mg PO DAILY 06/07/19 prenat.vits,mckenzie,[id number] 1 tab PO DAILY 06/07/19 Doxylamine Succinate [Unisom] 25 mg PO QHS 09/12/19 Vitamin D3/Folic Acid [Noxifol-D3 2,500 Unit-1 mg Tab] 4,000 unit PO DAILY 09/12/19 Ibuprofen 600 mg PO TID PRN #30 tab 09/17/19 Oxycodone [Oxyir] 5 mg PO Q6H PRN PRN 7 Days #28 tab 09/17/19 Docusate Sodium [Colace] 100 mg PO BID 30 Days #60 cap 09/19/19 The following prescriptions were given: Docusate Sodium [Colace] 100 mg PO BID 30 Days #60 cap Transmission Status: Pending to [facility] Ibuprofen 600 mg PO TID PRN #30 tab PRN Reason: Pain Or Fever Transmission Status: Received by [facility] Oxycodone [Oxyir] 5 mg PO Q6H PRN PRN 7 Days #28 tab PRN Reason: severe pain Transmission Status: Received by [facility] Follow-Up: Call to make an appointment with your doctor for an incision check in 1-2 weeks. You will also need a 6 week post- follow up appointment. Test results from this visit will be discussed in further detail at your follow- up appointment, if applicable. Please Follow Up With: Tanesha Yanes MD When: 1-2 weeks Primary Care Physician: Librado Ybarra DO [Primary Care Provider] - <Park Bailey - Last Filed: 09/19/19 10:30> Additional Instructions: If you experience any of the following, contact your healthcare provider. * Bleeding that soaks a pad every hour for 2 hours * Fever 100.4 or higher * Unrelieved incision or abdominal pain * Swelling, redness, discharge or bleeding from your incision or episiotomy site * Your incision begins to separate * Problems urinating (including inability to urinate or burning while urinating). * Visual changes * Severe headache * Flu-like symptoms * Pain or redness in one of both of your breasts * Pain, warmth, tenderness or swelling in your legs, especially the calf area * Frequent nausea and vomiting * Symptoms of depression or anxiety If you experience any of the following, call 911 or go to the nearest Emergency Room. * Chest pain * Problems breathing * Seizure activity * Partial or complete paralysis of a body part, slurred speech, weakness or drooping of the face, or a sudden inability to walk or hold your balance Follow-Up: Call to make an appointment with your doctor for an incision check in 1-2 weeks. You will also need a 6 week post- follow up appointment. Test results from this visit will be discussed in further detail at your follow- up appointment, if applicable.
[2019-09-17] MEDS: Lactated Ringers 1,000 ML 100 ML IV (19:00)
[2019-09-17] MEDS: Oxytocin 30 units/NS 500 ml 30 UNITS/500 ML IV.SOLN 167 UNITS IV (19:45)
[2019-09-17] MEDS: Ketorolac 30 MG/ML Syringe IV (23:50)
[2019-09-18] VITALS (16 sets, daily range): BP systolic 99–135; BP diastolic 51–84; PULSE 65–89; RESP 16–18; TEMP 36.3–37.2; O2SAT 94–99
[2019-09-18] MEDS: Enoxaparin 40 MG/0.4 ML Syringe SC (06:02)
[2019-09-18] MEDS: Acetaminophen 500 MG Tablet 1000 MG PO ×3 (06:03→18:01)
[2019-09-18] MEDS: Levothyroxine 50 MCG Tablet PO (06:03)
[2019-09-18] MEDS: Ketorolac 30 MG/ML Syringe IV (06:03)
[2019-09-18 06:34] LABS: Hematocrit 34.3 % (37-47); Hemoglobin 11.4 g/dL (12.0-15.0); Mean Corp Hgb Conc 33.2 g/dL (32-36); Mean Corpuscular Hgb 29.7 pg (27.0-32.0); Mean Corpuscular Volume 89.3 fL (81-99); Mean Platelet Vol. 11.2 fl (6.2-12.0); Platelet Count 116 K/mm3 (150-450); RBC Distribution Width CV 13.8 % (11.6-14.6); RBC Distribution Width SD 44.6 fl (35.1-43.9); Red Blood Count 3.84 M/mm3 (4.2-5.4); White Blood Count 7.2 K/mm3 (4.4-11.0)
[2019-09-18] MEDS: Senna/Docusate Sodium 1 Tablet PO (09:52)
[2019-09-18] MEDS: Sertraline 100 MG Tablet PO (09:52)
[2019-09-18] MEDS: Pantoprazole Sodium 20 MG Tablet PO (09:52)
--- NOTE | 2019-09-18 11:14 | PCM.PN.OB ---
Patient Problems: Active and Suspected Problems (Last Reviewed 03/18/18 @ 11:[address] Vahe Antoine MD) Vision changes (Acute) Headache (Acute) Preeclampsia (Acute) Subjective: Reports no headache at this time. Mild incisional pain,but well controlled. Very very tired after only 30 minutes of sleep overnight. Has been up ambulating in room, passing flatus, urinating well, and tolerating regular diet. daughter well with no concerns. Objective: VSS with blood pressures well controlled ranging 90s-100s/60-80s. No headache. Magnesium off early at 0930 due to IV infiltration. Fundus is u/1, firm, midline. Surgical mepilex dressing is CDI. Lochia rubra is scant. Denies pain at this time. Very tired, but to rest today. - Physical Exam Vitals/I&O's: Vital Signs Temp Pulse Resp BP Pulse Ox 97.5 F L 78 18 104/51 L 98 09/18/19 09:55 09/18/19 09:55 09/18/19 09:55 09/18/19 09:55 09/18/19 09:55 Oxygen Delivery Method Room Air Weight: 101.605 kg Body Mass Index (BMI) 38.4 Intake and Output for Last 24 Hours 09/16/19 09/17/19 09/18/19 23:59 23:59 23:59 Intake Total 3254.42 / 3254.42 2427.49 / 2427.49 Output Total 1200 / 1200 1650 / 1650 Balance 2054.42 / 2054.42 777.49 / 777.49 General: Alert, Oriented x3, Cooperative HEENT: Atraumatic, PERRLA, EOMI, Normocephalic Neck: Supple, No JVD, Negative Carotid Bruits Lungs: Clear to auscultation, Normal air movement Cardiovascular: Regular rate, No murmurs Abdomen: Bowel Sounds Present, Soft, Hypoactive Bowel Sounds, Tender - to palpation, - - surgical dressing CDI Extremities: No edema, Capillary Refill Less than 3 Seconds Skin: No rashes, No breakdown Musculoskeletal: No Tenderness to Palpation of Joints or Extremities Neurological: Cranial nerves II-XII grossly intact Psych/Mental Status: Normal Affect, Appropriate Laboratory Results 09/17/19 10:05: COVID-19 (JO ANN) Not Detected 09/18/19 06:10: WBC 7.2, RBC 3.84 L, Hgb 11.4 L, Hct 34.3 L, MCV 89.3, MCH 29.7, MCHC 33.2, RDW Std Deviation 44.6 H, RDW Coeff of Tania 13.8, Plt Count 116 L, MPV 11.2 Current Medications Acetaminophen (Tylenol) 1,000 mg PO Q6 [facility] Last Admin: 09/18/19 06:03 Dose: 1,000 mg Documented by: Bisacodyl (Dulcolax) 10 mg RECTAL UD PRN PRN Reason: If no BM Enoxaparin Sodium (Lovenox) 40 mg SC DAILY [facility] Last Admin: 09/18/19 06:02 Dose: 40 mg Documented by: Hydrocortisone (Hytone) 1 applic TOPICAL TID PRN PRN; Protocol PRN Reason: Discomfort Lactated Ringer's () 1,000 mls @ 100 mls/hr IV .Q10H [facility] Last Infusion: 09/18/19 06:25 Dose: Infused Documented by: Naloxone HCl 4 mg/ Dextrose 504 mls @ 0 mls/hr IV .Q0M PRN; Protocol PRN Reason: Respiratory depression Ibuprofen (Motrin) 600 mg PO Q6 [facility] Levothyroxine Sodium (Synthroid) 50 mcg PO DAILY@0600 [facility] Last Admin: 09/18/19 06:03 Dose: 50 mcg Documented by: Methylergonovine Maleate (Methergine) 0.2 mg IM X1 PRN PRN Reason: Uterine Atony Last Admin: 09/17/19 17:44 Dose: 0.2 mg Documented by: Naloxone HCl (Narcan) 0.02 mg IV Q1M PRN PRN Reason: RR <10 and pt unresponsive Ondansetron HCl (Zofran) 4 mg IV Q4H PRN PRN PRN Reason: Nausea Oxycodone HCl (Oxyir) 5 - 10 mg PO Q4H PRN PRN PRN Reason: Pain Score 4-10/10 Pantoprazole Sodium (Protonix) 20 mg PO DAILY [facility] Last Admin: 09/18/19 09:52 Dose: 20 mg Documented by: Multivit/Folic Acid/Iron (Prenatabs Fa) 1 tablet PO DAILY@1200 [facility] Prochlorperazine Edisylate (Compazine Iv) 10 mg IV Q6H PRN PRN PRN Reason: NAUSEA Senna/Docusate Sodium (Senokot-S, Dora-Colace) 0 tablet PO DAILY [facility] Last Admin: 09/18/19 09:52 Dose: 2 tablet Documented by: Sertraline HCl (Zoloft) 100 mg PO DAILY [facility] Last Admin: 09/18/19 09:52 Dose: 100 mg Documented by: Simethicone (Mylicon) 80 mg PO PCHS PRN PRN Reason: Indigestion/stomach pain Sodium Chloride () 5 - 15 ml IV UD PRN PRN Reason: SALINE FLUSH Medical Necessity - Tobacco Use Smoking Status: Former smoker Assessment/Plan All Active Problems (Last Reviewed 03/18/18 @ 11:[address] Vahe Antoine MD) delivery delivered (Acute) 37 weeks gestation of (Acute) Vision changes (Acute) Headache (Acute) Preeclampsia (Acute) A/P POD #1 of repeat Csection d/t uncontrolled headache mother Normal involution and course Educated on sleeping while baby sleeps and if headache reoccurs increase her water intake/caffeine/sleep Denies headache at this time and blood pressures well controlled Magnesium stopped at 0930 d/t IV infiltration To continue postop orders Plans to discharge tomorrow if able
[2019-09-18] MEDS: Ibuprofen 600 MG Tablet PO ×2 (12:50→18:02)
[2019-09-18] MEDS: Prenatal Vits Tablet 1 TABLET PO (14:00)
[2019-09-19] MEDS: Acetaminophen 500 MG Tablet 1000 MG PO ×2 (00:01→06:05)
[2019-09-19] MEDS: Ibuprofen 600 MG Tablet PO ×3 (00:02→12:09)
[2019-09-19 00:07] VITALS: BP 123/56; PULSE 71; RESP 16; TEMP 36.5; O2SAT 95
[2019-09-19 04:45] VITALS: BP 110/59; PULSE 67; RESP 16; TEMP 37.2; O2SAT 97
[2019-09-19] MEDS: Levothyroxine 50 MCG Tablet PO (06:05)
[2019-09-19 09:35] VITALS: BP 118/68; PULSE 71; RESP 18; TEMP 36.8
[2019-09-19] MEDS: Pantoprazole Sodium 20 MG Tablet PO (09:46)
[2019-09-19] MEDS: Sertraline 100 MG Tablet PO (09:46)
[2019-09-19] MEDS: Enoxaparin 40 MG/0.4 ML Syringe SC (09:47)
[2019-09-19] MEDS: Senna/Docusate Sodium 1 Tablet PO (09:47)
--- NOTE | 2019-09-19 10:55 | PCM.PN.OB ---
Patient Problems: Active and Suspected Problems (Last Reviewed 03/18/18 @ 11:[address] Vahe Antoine MD) Vision changes (Acute) Headache (Acute) Preeclampsia (Acute) Subjective: Denies headache and feeling well. Denies heavy bleeding or pain. Would like to discharge home today. Objective: VSS. Fundus is firm, midline, u/1. Lochia rubra scant. Surgical dressing is CDI. - Physical Exam Vitals/I&O's: Vital Signs Temp Pulse Resp BP Pulse Ox 98.3 F 71 18 118/68 97 09/19/19 09:35 09/19/19 09:35 09/19/19 09:35 09/19/19 09:35 09/19/19 04:45 Oxygen Delivery Method Room Air Weight: 101.605 kg Body Mass Index (BMI) 38.4 Intake and Output for Last 24 Hours 09/17/19 09/18/19 09/19/19 23:59 23:59 23:59 Intake Total 3254.42 / 3254.42 2427.49 / 2427.49 Output Total 1200 / 1200 1650 / 1650 Balance 2054.42 / 2054.42 777.49 / 777.49 General: Alert, Oriented x3, Cooperative HEENT: Atraumatic, PERRLA, EOMI, Normocephalic Neck: Supple, No JVD, Negative Carotid Bruits Lungs: Clear to auscultation, Normal air movement Cardiovascular: Regular rate, No murmurs Abdomen: Bowel Sounds Present, Soft, Non Tender, Passing Flatus Extremities: No edema, Capillary Refill Less than 3 Seconds Skin: No rashes, No breakdown, Incision - abdominal CDI Musculoskeletal: No Tenderness to Palpation of Joints or Extremities Neurological: Cranial nerves II-XII grossly intact Psych/Mental Status: Normal Affect, Appropriate Current Medications Acetaminophen (Tylenol) 1,000 mg PO Q6 [facility] Last Admin: 09/19/19 06:05 Dose: 1,000 mg Documented by: Bisacodyl (Dulcolax) 10 mg RECTAL UD PRN PRN Reason: If no BM Enoxaparin Sodium (Lovenox) 40 mg SC DAILY [facility] Last Admin: 09/19/19 09:47 Dose: 40 mg Documented by: Hydrocortisone (Hytone) 1 applic TOPICAL TID PRN PRN; Protocol PRN Reason: Discomfort Naloxone HCl 4 mg/ Dextrose 504 mls @ 0 mls/hr IV .Q0M PRN; Protocol PRN Reason: Respiratory depression Ibuprofen (Motrin) 600 mg PO Q6 [facility] Last Admin: 09/19/19 06:05 Dose: 600 mg Documented by: Levothyroxine Sodium (Synthroid) 50 mcg PO DAILY@0600 [facility] Last Admin: 09/19/19 06:05 Dose: 50 mcg Documented by: Methylergonovine Maleate (Methergine) 0.2 mg IM X1 PRN PRN Reason: Uterine Atony Last Admin: 09/17/19 17:44 Dose: 0.2 mg Documented by: Naloxone HCl (Narcan) 0.02 mg IV Q1M PRN PRN Reason: RR <10 and pt unresponsive Ondansetron HCl (Zofran) 4 mg IV Q4H PRN PRN PRN Reason: Nausea Oxycodone HCl (Oxyir) 5 - 10 mg PO Q4H PRN PRN PRN Reason: Pain Score 4-10/10 Pantoprazole Sodium (Protonix) 20 mg PO DAILY [facility] Last Admin: 09/19/19 09:46 Dose: 20 mg Documented by: Multivit/Folic Acid/Iron (Prenatabs Fa) 1 tablet PO DAILY@1200 [facility] Last Admin: 09/18/19 14:00 Dose: 1 tablet Documented by: Prochlorperazine Edisylate (Compazine Iv) 10 mg IV Q6H PRN PRN PRN Reason: NAUSEA Senna/Docusate Sodium (Senokot-S, Dora-Colace) 0 tablet PO DAILY [facility] Last Admin: 09/19/19 09:47 Dose: 2 tablet Documented by: Sertraline HCl (Zoloft) 100 mg PO DAILY [facility] Last Admin: 09/19/19 09:46 Dose: 100 mg Documented by: Simethicone (Mylicon) 80 mg PO HS PRN PRN Reason: Indigestion/stomach pain Sodium Chloride () 5 - 15 ml IV UD PRN PRN Reason: SALINE FLUSH Medical Necessity - Tobacco Use Smoking Status: Former smoker Assessment/Plan All Active Problems (Last Reviewed 03/18/18 @ 11:[address] Vahe Antoine MD) delivery delivered (Acute) 37 weeks gestation of (Acute) Vision changes (Acute) Headache (Acute) Preeclampsia (Acute) A/P POD #2 of repeat Csection mother Normal involution and course Denies headache at this time and blood pressures well controlled Educated on when to remove dressing, to schedule 1-2 week incision check and to call for any s/s of pre-eclampsia To discharge home today
== END 2019-09-19 12:30 | disposition home or self-care (01) | DRG 786 ==
LOC: WPOUT 09:28 → WP 09:28
PROVIDERS: Admitting Provider Obstetrics & Gynecology; PCP Family Medicine; Visit Provider Obstetrics & Gynecology
DX: O34.219 Maternal care for unspecified type scar from previous cesarean delivery (principal); O24.12 Pre-existing type 2 diabetes mellitus, in childbirth; O72.1 Other immediate postpartum hemorrhage; O14.94 Unspecified pre-eclampsia, complicating childbirth; N85.8 Other specified noninflammatory disorders of uterus; Z3A.37 37 weeks gestation of pregnancy; Z37.0 Single live birth; K21.9 Gastro-esophageal reflux disease without esophagitis; E11.9 Type 2 diabetes mellitus without complications; E03.9 Hypothyroidism, unspecified; O99.284 Endocrine, nutritional and metabolic diseases complicating childbirth; O99.344 Other mental disorders complicating childbirth; F32.9 Major depressive disorder, single episode, unspecified; F41.9 Anxiety disorder, unspecified; Z87.891 Personal history of nicotine dependence
CPT/HCPCS: 59050; 80053; 82570; 84156; 85025; 85027; 85610; 85730; 87635; 99218; G2023; J7120; G0378; U0003

== ENCOUNTER → 2019-10-27 14:26 | Outpatient (CLI) | payer OTHER, SELFPAY ==
[2019-09-17 07:33] VITALS: BMI 38.4
[2019-10-27 15:57] LABS: Free T3 2.6 pg/mL (2.18-3.98); T4 Free Direct 1.11 ng/dL (0.76-1.46)
== END ==
PROVIDERS: PCP Family Medicine; Visit Provider Obstetrics & Gynecology
DX: E03.9 Hypothyroidism, unspecified (principal)
CPT/HCPCS: 36415; 84439; 84443; 84481

== ENCOUNTER → 2019-12-17 12:24 | Outpatient (CLI) | payer OTHER, SELFPAY ==
[2019-09-17 07:33] VITALS: BMI 38.4
--- NOTE | 2019-12-17 12:27 | US_ITS ---
STUDY: THYROID ULTRASOUND REASON FOR EXAM: Female, 33 years old. HYPOTHYROIDISM -- SWELLING TECHNIQUE: Ultrasound evaluation of the thyroid was performed with real-time and static light-scale imaging. COMPARISON: None. FINDINGS: RIGHT LOBE: The right lobe of the thyroid gland measures 4.9 cm x 1.7 cm x 1.5 cm. There is a homogeneous echotexture. There is a well-defined 4 mm x 4 mm x 4 mm hypoechoic solid nodule in the upper pole. LEFT LOBE: The left lobe of the thyroid gland measures 4.8 cm x 1.6 cm x 1.3 cm. There is a homogeneous echotexture. There is a 4 mm x 3 mm x 3 mm cystic nodule in the midpole of the left lobe. ISTHMUS: The isthmus measures 3 mm. The regional lymph nodes are normal. US/Thyroid IMPRESSION: 4 mm x 4 mm x 4 mm well-defined hypoechoic solid nodule in the upper pole of the right lobe as well as a 4 mm x 3 mm x 3 mm cyst in the midpole of the left lobe. Electronically Signed: Obdulio Jose, at 13:16 EDT , Service support ,
== END ==
PROVIDERS: PCP Family Medicine; Referring Provider Obstetrics & Gynecology; Visit Provider Obstetrics & Gynecology
DX: E03.9 Hypothyroidism, unspecified (principal); R22.1 Localized swelling, mass and lump, neck
CPT/HCPCS: 76536

== ENCOUNTER → 2020-03-06 16:21 | Outpatient (CLI) | payer OTHER, SELFPAY ==
[2020-03-06 15:29] VITALS: BMI 34.7
[2020-03-06 18:21] LABS: Ferritin 96 ng/mL (8-252)
[2020-03-07 12:43] LABS: Vitamin B12 372 pg/mL (211-911); Vitamin D,25 Hydroxy 22.8 ng/mL
[2020-03-08 06:09] LABS: Thyroid Peroxidase AB < 9 IU/mL (0-34)
== END ==
PROVIDERS: PCP Family Medicine; Visit Provider Internal Medicine Endocrinology, Diabetes & Metabolism
DX: E03.9 Hypothyroidism, unspecified (principal); E61.1 Iron deficiency; R20.2 Paresthesia of skin; M79.601 Pain in right arm; M79.602 Pain in left arm; E55.9 Vitamin D deficiency, unspecified
CPT/HCPCS: 36415; 82306; 82607; 82728; 86376

== ENCOUNTER → 2020-04-19 16:38 | Outpatient (CLI) | payer OTHER, SELFPAY ==
[2020-03-06 15:29] VITALS: BMI 34.7
[2020-04-19 17:43] LABS: Thyroid Stim Hormone (TSH) 2.16 uIU/mL (0.358-3.74)
== END ==
PROVIDERS: PCP Family Medicine; Referring Provider Internal Medicine Endocrinology, Diabetes & Metabolism; Visit Provider Internal Medicine Endocrinology, Diabetes & Metabolism
DX: E03.9 Hypothyroidism, unspecified (principal)
CPT/HCPCS: 36415; 84439; 84443

== ENCOUNTER → 2020-05-18 09:29 | Outpatient (CLI) | payer OTHER, SELFPAY ==
[2020-03-06 15:29] VITALS: BMI 34.7
--- NOTE | 2020-05-18 09:32 | US_ITS ---
STUDY: ULTRASOUND BREAST - LEFT REASON FOR EXAM: Female, 34 years old. Palpable lump left breast. TECHNIQUE: Axial and longitudinal images of the LEFT breast were performed with a high resolution ultrasound transducer. # OF IMAGES: 112 COMPARISON: Comparison is made with prior mammogram done earlier today. FINDINGS: LEFT Breast: There is a 2.1cm by 1.9 cm x 1 cm benign-appearing lymph node in the left axilla. US/Breast Limited Unilateral IMPRESSION: 2.1 cm x 1.9 cm x 1 cm benign-appearing lymph node in the left axilla. ASSESSMENT CATEGORY: BIRADS Category 2: Benign. A letter regarding these results will be sent to the patient by the facility within 30 days. Electronically Signed: Obdulio Jose MD at 12:34 EST , Service support ,
--- NOTE | 2020-05-18 10:26 | BI_ITS ---
MAMMOGRAPHY - BILATERAL DIAGNOSTIC REASON FOR EXAM: Female, 34 years old. Left breast lump. Patient is breast-feeding. PERTINENT HISTORY: TECHNIQUE: Mediolateral oblique views of both breasts were obtained. CAD: Full Field Digital Mammography with Computer Added Detection was performed. COMPARISON: Comparison is made with prior ultrasound of the breast done earlier today. FINDINGS: Breast Composition: The breasts are extremely dense, which lowers the sensitivity of mammography. There are no dominant masses or suspicious calcifications. No other significant abnormalities are identified. BI/DIAG MAMM W/CAD, BILAT IMPRESSION: Negative diagnostic mammogram. Yearly followup mammogram recommended. (A) ASSESSMENT CATEGORY: BIRADS Category 1: Negative. A letter regarding these results will be sent to the patient by the facility within 30 days. Approximately 10% of breast cancers are not detected by mammography. A normal mammogram should not delay biopsy of a clinically suspicious abnormality. Electronically Signed: Obdulio Jose MD at 11:06 EST , Service support ,
== END ==
PROVIDERS: PCP Family Medicine; Referring Provider Obstetrics & Gynecology; Visit Provider Obstetrics & Gynecology
DX: N63.20 Unspecified lump in the left breast, unspecified quadrant (principal); R92.8 Other abnormal and inconclusive findings on diagnostic imaging of breast
CPT/HCPCS: 76642; 77066

== ENCOUNTER 2020-07-21 10:06 | Emergency (ER) | payer OTHER, SELFPAY ==
[2020-06-13 10:52] VITALS: BMI 34.3
[2020-07-21 10:08] VITALS: BP 137/77; PULSE 78; RESP 16; TEMP 36.8; O2SAT 99; BMI 33.7
--- NOTE | 2020-07-21 10:33 | EKG12_ITS ---
Test Reason : Blood Pressure : / mmHG Vent. Rate : 062 BPM Atrial Rate : 062 BPM P-R Int : 158 ms QRS Dur : 092 ms QT Int : 414 ms P-R-T Axes : 036 -01 021 degrees QTc Int : 420 ms Normal sinus rhythm with sinus arrhythmia Normal ECG Confirmed by ADIS ALTAMIRANO, CLARICE ([id number]), mapping editor TRUE STACK ([id number]) on 07/24/2020 9:45:46 AM Referred By: AGNES Confirmed By:ALEX ARCEO MD
--- NOTE | 2020-07-21 10:40 | RAD_ITS ---
STUDY: X-RAY CHEST REASON FOR EXAM: Female, 34 years old. Chest pain TECHNIQUE: Single AP portable view of the chest. COMPARISON: Comparison is made with prior study 01/18/2015. FINDINGS: EKG electrodes are seen. The lungs are clear and expanded. There is no demonstrated pleural abnormality. Normal size heart. Normal mediastinum and sahra. Normal visualized pulmonary arteries. Normal visualized aortic arch and descending thoracic aorta. There is a mild dextroscoliosis of the thoracic spine. Normal visualized ribs, clavicles, and shoulders. There is no demonstrated abnormality of the visualized soft tissue structures of the upper abdomen. RAD/Chest 1 View (Portable) IMPRESSION: Normal x-ray examination of the chest. Electronically Signed: Obdulio Jose MD at 11:12 EDT , Service support ,
[2020-07-21 10:44] LABS: Absolute Lymphocyte Count 2.81 X10^3/uL (0.83-4.51); Absolute Neutrophil Count 5.4 X10^3/uL (2.0-7.7); Basophil# 0.04 X10^3/uL; Basophil% 0.5 % (0-1); Eosinophil# 0.11 X10^3/uL; Eosinophils% 1.2 % (0-5); Hematocrit 40.7 % (37-47); Hemoglobin 13.9 g/dL (12.0-15.0); Lymphocyte # 2.81 X10^3/ul (0.83-4.51); Lymphocyte % 31.8 % (19-41); Mean Corp Hgb Conc 34.2 g/dL (32-36); Mean Corpuscular Hgb 30.1 pg (27.0-32.0); Mean Corpuscular Volume 88.1 fL (81-99); Mean Platelet Vol. 10.6 fl (6.2-12.0); Monocyte# 0.47 X10^3/uL; Monocyte% 5.3 % (0-10); NRBC Flagged by Analyzer 0 % (0-5); Neutrophil # 5.39 X10^3/uL (2.7-7.7); Neutrophil % 60.9 % (47-70); Platelet Count 236 K/mm3 (150-450); RBC Distribution Width CV 12.2 % (11.6-14.6); RBC Distribution Width SD 39.5 fl (35.1-43.9); Red Blood Count 4.62 M/mm3 (4.2-5.4); White Blood Count 8.9 K/mm3 (4.4-11.0)
[2020-07-21] MEDS: 0.9% Normal Saline 1,000 ML 1000 ML IV (10:44)
[2020-07-21 10:55] LABS: D-Dimer Quantitative (DVT/PE) <= 0.27 FEU/ug/m (0.27-0.49)
[2020-07-21 10:59] LABS: Internal QC Validated? YES +Cl - CLEAR BKGD; Pregnancy, Serum, hCG Quali. NEGATIVE Negative
[2020-07-21 11:02] LABS: Anion Gap 5 (5-15); BUN 19 mg/dL (7-18); BUN/Creat Ratio 30.4 RATIO (10-20); Calcium,Total 9.5 mg/dL (8.5-10.1); Chloride 105 mmol/L (98-107); Creatinine, Serum 0.62 mg/dL (0.55-1.02); EST Glomerular Filtration Rate 115 mL/min (>60); Est Glom Filt Rate - Afr Amer 139 mL/min (>60); Estimated Creatinine Clearance 108.32 ml/min; Glucose 84 mg/dL (74-106); Potassium 3.9 mmol/L (3.5-5.1); Sodium Level 137 mmol/L (136-145); Thyroid Stim Hormone (TSH) 1.94 uIU/mL (0.358-3.74)
--- NOTE | 2020-07-21 11:21 | ED.RN ---
pt reports recent increase in zoloft dose. x2 days.
--- NOTE | 2020-07-21 11:43 | ED.DCSUM_ITS ---
- ER Visit Summary Date of Service: 07/21/20 Chief Complaint: Palpitations History of Present Illness: The patient is a [address] Ybarra. Patient reports that yesterday approximately 7 PM she was out at dinner and began feeling as though her heart was racing. She states that her heart rate was 114. She went home and it got up to 140. States that she went to sleep and continues to have palpitations today, but they are not as severe. Patient reports the only thing that was unusual last night is that she had a gael and she rarely drinks. Patient reports she has a chest tightness that began approximately 930 this morning while at rest. Said continuous pain is 5-10 at worst and 3-10 currently. Is worsened by breathing. Is unchanged by exertion or movement of her torso. Is relieved by remaining still. She does report she feels mildly short of breath. She denies any radiation. No associated nausea, vomiting, or diaphoresis. Physical Examination: Vitals: Stable. Afebrile. General: Well-nourished and well-developed. Head: Normocephalic atraumatic. Neck: Supple, no lymphadenopathy. No JVD. Nontender. Cardiovascular: Regular rate and rhythm. No murmurs. Respiratory: No respiratory distress. Clear to auscultation bilaterally. Abdominal: Soft, nontender, nondistended, normal bowel sounds. No guarding, rebound, or peritoneal signs. Back: Nontender. Extremities: Nontender, no edema. Skin: Normal color, no rash. Neurologic: Alert and oriented ?3. Cranial nerves II through XII are intact. Normal strength and sensation. Psych: Normal affect. Test Results: EKG is sinus at sixty-[address] changes. Is uncha nged from December 2017. Troponin is negative. D-dimer is negative. test is negative. Covid is negative. Chem-7 shows a BUN of nineteen. TSH is 1.94. CBC is normal. Clinical Impression(s) from Imaging Studies Chest X-Ray 07/21/20 10:40 IMPRESSION: Normal x-ray examination of the chest. Electronically Signed: Obdulio Jose MD at 11:12 EDT , Service support , Emergency Department Course and Treatment: Patient is resting comfortably. She refused pain medications. She is in sinus rhythm and I do not appreciate any ectopy while here. Treatment Plan: Patient be discharged instructions to follow-up with her primary care physician within 3 to 5 days for another exam. Return to the emergency department for any worsening symptoms. Disposition: To home in improved and stable condition. Impression: One. Palpitations. 2. Atypical chest pain. This note was generated with [employer] dictation software. It may contain incorrect words, spelling, and punctuation that were not noted in review of the chart prior to signing ED Disposition - Plan for ED Patient: Instructions: ED Palpitations Referrals: Librado Ybarra DO [Primary Care Provider] - 3-5 Days
[2020-07-21 11:45] VITALS: BP 126/81; PULSE 63; RESP 16; O2SAT 100
[2020-07-21 12:09] VITALS: BP 133/81; PULSE 67; RESP 16; O2SAT 99
== END 2020-07-21 12:10 | disposition home or self-care (01) ==
PROVIDERS: Emergency Provider Emergency Medicine; PCP Family Medicine
DX: R00.2 Palpitations (principal); R07.89 Other chest pain; K21.9 Gastro-esophageal reflux disease without esophagitis
CPT/HCPCS: 71045; 80048; 84443; 84484; 84703; 85025; 85379; 87426; 93005; 99285; J7030; A4216

== ENCOUNTER → 2020-08-04 07:58 | Outpatient (CLI) | payer OTHER, SELFPAY ==
[2020-07-21 10:08] VITALS: BMI 33.7
--- NOTE | 2020-08-04 08:00 | US_ITS ---
HISTORY: NODULES EXAMINATION: US Thyroid (eg thyroid, parathyroid, parotid) TECHNIQUE: Laureano scale and color doppler imaging was performed of the thyroid gland. COMPARISON: 12/17/19 FINDINGS: RIGHT THYROID LOBE: 4.3 x 1.7 x 1.7 cm. Homogeneous echotexture with normal vascularity. Nodules: Stable, smoothly marginated solid but hypoechoic nodule in the upper pole measures 5 x 4 x 4 mm, wider than tall no internal calcifications. TI-RADS Category 4, moderately suspicious. LEFT THYROID LOBE: 4.5 x 1.5 x 1.5 cm. Homogeneous echotexture with normal vascularity. Nodules: Stable, smoothly marginated cystic lesion in the midpole measures 3 x 3 x 3 mm, taller than wide with single internal calcification. TI-RADS Category 4, moderately suspicious ISTHMUS: 2 mm. Nodules: No thyroid nodules are present. US/Thyroid IMPRESSION: Stable bilateral category 4 nodules. Based on size routine annual follow-up recommended. ACR TI-RADS recommendations (J Am Marisabel Radiol 2017): Based on composition, echogenicity, shape, margin, and echogenic foci. TR5 (=7 points) - Highly suspicious FNA if = 1cm, follow up if 0.5-0.9 cm every year for 5 years TR4 (4 - 6 points) - Moderately suspicious FNA if = 1.5cm, follow - up if 1-1.4 cm in 1, 2, 3 and 5 years TR3 (3 points) - Mildly suspicious FNA if = 2.5cm, follow - up if 1.5-2.4 cm in 1, 3 and 5 years TR2 (2 points) - Not suspicious No FNA or follow-up TR1 (0 points) - Benign No FNA or follow-up -Biopsy no more than 2 nodules which meet FNA criteria. -Follow/report no more than 4 nodules with highest TR point totals. -Follow-up can stop at 5 years if there is no change in size. -If nodule TR level increases on follow-up the next sonogram should be done in one year. at 2118 Reported and signed by: Ganga Villarreal MD Electronically Signed: Ganga Villarreal MD at 21:17 EDT Tel , Service support ,
== END ==
PROVIDERS: PCP Family Medicine; Referring Provider Family Medicine; Visit Provider Family Medicine
DX: E04.2 Nontoxic multinodular goiter (principal)
CPT/HCPCS: 76536

== ENCOUNTER → 2020-10-19 07:56 | Outpatient (CLI) | payer OTHER, SELFPAY ==
--- NOTE | 2020-10-19 07:58 | MRI_ITS ---
STUDY: MRI LEFT SHOULDER REASON FOR EXAM: Left shoulder pain and limited range of motion for 6 months, felt a pop. TECHNIQUE: Standardized fat and water weighted pulse sequences were obtained in all 3 orthogonal planes. COMPARISON: None. FINDINGS: There is supraspinatus tendinosis (T2 coronal images 7-9) without discrete tendon tear. Normal infraspinatus tendon. Normal subscapularis tendon. Normal teres minor tendon. Normal supraspinatus muscle. Normal infraspinatus muscle. Normal subscapularis muscle. Normal teres minor muscle. Normal glenohumeral articulation. Normal humeral head and visualized proximal humerus. Normal biceps labral complex. Normal intracapsular long biceps tendon. Normal labrum. Normal capsulo- ligamentous complex. There is mild acromioclavicular arthrosis without undersurface osteophytes (proton-density coronal image 7). There is a Type II morphology (curved), with a neutral orientation. There is a trace of subacromial-subdeltoid bursal fluid. Normal visualized coracohumeral and coracoacromial ligaments. Normal deltoid muscle. Normal trapezius muscle. MRI/Upper Ext Joint Only(Routine) IMPRESSION: Supraspinatus tendinosis without demonstrated rotator cuff tear. Mild acromioclavicular arthrosis. Electronically Signed: Santy Hernandez MD at 9:59 EDT Tel , Service support ,
== END ==
PROVIDERS: PCP Family Medicine; Referring Provider Family Medicine; Visit Provider Family Medicine
DX: M25.512 Pain in left shoulder (principal)
CPT/HCPCS: 73221

== ENCOUNTER → 2020-10-27 13:06 | Outpatient (CLI) | payer OTHER, SELFPAY ==
[2020-10-27 14:03] LABS: hCG Titer Quant., Serum < 1 mIU/mL (1-3)
[2020-10-27 17:00] LABS: T3 Total - Triiodothyronine 1.13 ng/mL (0.6-1.81)
[2020-10-27 17:06] LABS: Free T3 1.6 pg/mL (2.18-3.98); T4 Free Direct 0.89 ng/dL (0.76-1.46); Thyroid Stim Hormone (TSH) 1.51 uIU/mL (0.358-3.74)
== END ==
PROVIDERS: Visit Provider Obstetrics & Gynecology
DX: N91.2 Amenorrhea, unspecified (principal); E03.9 Hypothyroidism, unspecified; R23.2 Flushing
CPT/HCPCS: 36415; 84439; 84443; 84480; 84481; 84702

== ENCOUNTER → 2020-12-22 17:39 | Outpatient (CLI) | payer OTHER, SELFPAY | PROVIDERS: PCP Family Medicine; Visit Provider Family Medicine | DX: Z20.822 Contact with and (suspected) exposure to COVID-19 (principal) | CPT/HCPCS: 87635; U0005; U0003 ==

== ENCOUNTER → 2021-01-09 16:10 | Outpatient (CLI) | payer OTHER, SELFPAY ==
[2021-01-09 16:36] LABS: Hematocrit 36.9 % (37-47); Hemoglobin 12.8 g/dL (12.0-15.0); Mean Corp Hgb Conc 34.7 g/dL (32-36); Mean Corpuscular Hgb 30.5 pg (27.0-32.0); Mean Corpuscular Volume 87.9 fL (81-99); Mean Platelet Vol. 10.6 fl (6.2-12.0); Platelet Count 209 K/mm3 (150-450); RBC Distribution Width CV 12.3 % (11.6-14.6); RBC Distribution Width SD 39.7 fl (35.1-43.9); White Blood Count 7.6 K/mm3 (4.4-11.0)
[2021-01-09 17:57] LABS: T3 Total - Triiodothyronine 1.06 ng/mL (0.6-1.81)
[2021-01-09 19:51] LABS: Estradiol 35.4 pg/mL; Ferritin 85 ng/mL (8-252); Free T3 2.6 pg/mL (2.18-3.98); T4 Free Direct 0.82 ng/dL (0.76-1.46); Thyroid Stim Hormone (TSH) 1.67 uIU/mL (0.358-3.74)
[2021-01-14 19:07] LABS: Testosterone, % Free 2.14 % (0.50-2.80); Testosterone, Free 0.21 ng/dL (0.10-0.85); Testosterone, Total 10 ng/dL (8-60)
[2021-01-15 09:05] LABS: Sex Hormone-binding Globulin 42.4 nmol/L (24.6-122.0)
== END ==
LOC: LAB 16:11
PROVIDERS: PCP Family Medicine; Referring Provider Obstetrics & Gynecology; Visit Provider Obstetrics & Gynecology
DX: N92.6 Irregular menstruation, unspecified (principal); E03.9 Hypothyroidism, unspecified
CPT/HCPCS: 36415; 82627; 82670; 82728; 84270; 84402; 84403; 84439; 84443; 84480; 84481; 85027; 82626

== ENCOUNTER 2021-01-18 07:18 | Day surgery (SDC) | payer OTHER, SELFPAY ==
[2021-01-18] VITALS (8 sets, daily range): BP systolic 110–132; BP diastolic 62–75; PULSE 62–77; RESP 16–18; TEMP 35.7–36.7; O2SAT 94–99; BMI 35.7
[2021-01-18 07:35] LABS: Internal QC Validated? YES +Cl - CLEAR BKGD; Pregnancy, Urine Negative Negative
[2021-01-18] MEDS: Lactated Ringers 1,000 ML 100 ML IV (07:53)
--- NOTE | 2021-01-18 08:07 | HP.PCM.OB_ITS ---
History and Physical Date of Admission: 01/18/21 Surgical History and Physical Date: 01/18/2021 Name: KALA BORREGO Age: 35 Date of : 1985 Kala Borrego, a 35 year old female 2 0 0 0 2, presents for Hysteroscopy, dilation and curettage, Symphion on at . -- Sulma has history of prolonged and heavy menses. Pelvic US showed an endometrial polyp. US 01/11/21 UTERUS: wnl=8.5 x 6.3 x 4.6 cm. ENDOMETRIAL ECHO: 9 mm / endometrial polyp=1.5 x 0.9 x 1.3 cm. RIGHT OVARY: wnl=3.6 x 2.3 x 2.3 cm. LEFT OVARY: wnl-3.4 x 2.0 x 1.9 cm. BLADDER: No bladder masses visualized. FREE FLUID: NONE. MEDICATIONS HISTORY: Current medications prescribed by our practice are: 1. lorazepam 0.5 mg tablet, One pill by mouth once a day as needed 2. Vitamin D3 4,000 unit capsule, 1 PO QD 3. Zoloft 100 mg tablet, 2 tabs po daily Patient is also takin. Prilosec 20 mg capsule,delayed release, One pill by mouth once a day 2. diclofenac sodium 50 mg tablet,delayed release, 1po tid, prn ALLERGIES: No Known Allergies, Penicillins, Generalized rash, Celexa, Generalized rash, Tetanus Immune Globulin and Fever Infections - Chicken pox Illnesses - depression, anxiety and reflux Accidents - no injuries of consequence Hospitalizations - see surgery Review of Systems: GENERAL - Denies fever, or chills SKIN - Denies skin changes EYES - Denies visual changes EARS - Denies difficulty hearing NOSE - Denies nasal congestion or bleeding MOUTH - Denies sore throat or difficulty swallowing NECK - Denies pain or swelling RESPIRATORY - Denies shortness of breath or wheezing CARDIOVASCULAR - Denies palpitations or chest pain GASTROINTESTINAL - Denies nausea, vomiting, diarrhea, constipation GENITOURINARY - leaking occas MUSCULOSKELETAL - low back pain NEUROLOGICAL - Denies localized numbness or weakness PSYCHIATRIC - Denies depression or anxiety ENDOCRINE - Denies heat or cold intolerance, weight loss or gain HEMATO-IMMUNOLOGIC - Denies excesive bleeding with cuts SOCIAL HISTORY: Alcohol Use - drinks occasionally not while Smoking - used to smoke but quit Diet - balanced Diet and light dairy. Was drinking energy drink and coffee. Less now. Water- 60 oz Lifestyle - Exercise - several times per week Seat Belt Use - always Employer - 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 cholecystectomy, 2006 ; - 2. cystectomy 2001 ; - 3. T and A, 2008 ; - 4. 09/17/2019 ; Tanesha Johnson MD - 5. 05/02/2018 ; Tanesha Johnson MD - 6. Appendectomy, 12/2014 ; - 7. R shoulder scope 10/2015 ; - PHYSICAL EXAM BP- 100/62 Sitting, Right arm, regular cuff Temp- 98.9 Taken Orally Weight- 209.86753 lbs Height- 63.5 inch BMI:[id number] CONSTITUTIONAL - NAD, well nourished, and well developed SKIN - No rash, lesions, or ulcers HEENT - Normocephalic, PERRLA, EOMI NECK - No nodes, no nuchal rigidity and thyroid normal size and texture LUNGS - normal respiratory rate and rhythm ABDOMEN - Without hepatosplenomegaly, distention, masses, rebound, or guarding; normal bowel sounds; no hernias NEUROLOGICAL - normal gait, normal balance, normal motor PSYCHIATRIC - A and O to time, place, person, mood and affect External Genitial Vagina - non-tender without lesions Urethra/Urethral Meatus - non-tender Bladder - non-tender Vagina - vaginal mart are pink and moist without loss of rugae and no evidence of atropy Cervix - without cervical motion tenderness and has normal size and features without evident lesions Uterus - enlarged uterus 8 wks, wt 125-150 g Adnexa - clear without massess or tenderness ASSESSMENT/PLAN: 1. Excessive And Frequent Menstruation With Regular Cycle US findings c/w endometrial polyp Plan for hysteroscopy, D, polypectomy Procedural r/b/i/a reviewed Consents signed Discussed anticipated hospitalization, outpatient course and recovery Assessment & Plan Assessment/Plan (1) Excessive and frequent menstruation with irregular cycle: (2) Endometrial polyp:
--- NOTE | 2021-01-18 08:55 | EMB_PTH ---
PATIENT: KALA ONEILL LOC: [facility] [place] U#:[id number] AGE/SX: 35/F ROOM: RE01/18/[address]: Dr. Tanesha Johnson MD : 1985 BED: DIS: 01/18/2021 SPEC #: [id number] RECD: 01/18/21 13:03 STATUS: IFRAH REWilly #: [id number] ROBERT: 01/18/21 08:[address]: Tanesha Lind DEPT: SURGICAL PATHOLOGY RECD BY: Summer Yost ENTERED: 01/19/21 09:02 SP TYPE: ENDOM BX/C OTHR DR: Dr. Librado Ybarra, DO Tissues: Endometrium, NOS Procedures: Surgery Specimen Level IV HEADER OPERATION: Hysteroscopy, D & C, polypectomy PRE-OP DIAGNOSIS: Excessive and frequent menstruation with irregular cycle, endometrial polyp TISSUE SUBMITTED: Endometrial curettings and polyps MICROSCOPIC DIAGNOSIS Endometrial curettings and polyp: Mildly disordered proliferative endometrium. Fragments of endometrial polyp with simple endometrial hyperplasia without atypia. SHAHIDA:mary 01/22/2021 COMMENT Case has been reviewed in consultation with Dr. Ashley who concurs with the above diagnosis. IDC:AM MICROSCOPIC DESCRIPTION Slides are reviewed. GROSS DESCRIPTION Received in fixative is one container labeled with the patient's name and designated endometrial curettings. The specimen consists of multiple fragments of girard-pink hemorrhagic soft tissue that in aggregate measure 2.5 x 2 x 0.2 cm. Also present in the container is a piece of girard-pink polyp measuring 1.5 x 1 x 0.5 cm. The entire specimen is submitted in two cassettes. Cassette 2 contains the bisected polyp. / SHAHIDA:mary 01/19/21 TC:5 CPT: 77500
[2021-01-18] MEDS: Lidocaine 1% (30 ml sdv) 30 ML Vial (10:05)
--- NOTE | 2021-01-18 10:24 | OP.PCM_ITS ---
Problems Associated Problem List Diagnoses (1) Endometrial polyp: (2) Excessive and frequent menstruation with irregular cycle: Report of Operation Date of Procedure: 01/18/21 Pre-Operative Diagnosis: 1. Menometrorrhagia 2. Endometrial polyp Post-Operative Diagnosis: 1. Menometrorrhagia 2. Endometrial polyp Surgery/Procedure Performed:: Hysteroscopy Dilation and curettage Polypectomy Description of Surgical Findings:: Two endometrial polyps. The largest 1.9 cm Surgeon: Tanesha Lind Type of Anesthesia: Local MAC Anesthesiologist: Yesica Bond Specimen's removed: Endometrial polyps and endometrial curettings Estimated Blood Loss (mL): 10 Fluids Replaced: 1200 ml Description of Procedure: Indications: 35-year-old 2 para 2 with history of frequent and prolonged menstruation with irregular cycle was found to have endometrial polyp on pelvic ultrasound. She presents for scheduled hysteroscopy, D&C, polypectomy. Procedural risks, benefits, indications were r eviewed and informed consent obtained. Procedure: Patient was brought to the operating room and spinal was performed. She is placed in the dorsal supine position and induced under MAC. She was re positioned into dorsal lithotomy. Speculum was introduced into the vagina and the cervix identified with normal appearance. A paracervical block was placed for total of 20 cc of 1% lidocaine without epinephrine. The anterior cervical lip was grasped using single-tooth tenaculum the cervix was subsequently dilated. Hysteroscopy was performed demonstrating to endometrial polyps. The endometrial cavity was otherwise normal in appearance. The scope was removed and polypectomy was performed using polyp forceps. Sharp curettage was performed. Hysteroscopy was again performed confirming integrity of the uterine wall. The tenaculum was removed from the cervix. There was bleeding from the tenaculum site thus compression was held for approximately 2 minutes with hemostasis achieved. The procedure was complete and the speculum was removed. The patient was placed into dorsal supine, awakened and transferred to the recovery room without complication. Sponge counts were correct x2. Complications None Admit VTE Documentation VTE Present on Admission: No VTE Mechan Device Prophylaxis: SCD's VTE Pharm Prophylaxis ordered?: No
--- NOTE | 2021-01-18 10:29 | PCM.DC ---
Discharge Instructions Diet Discharge Diet: No restrictions Activity Discharge Activity: Return to Normal Activity, May Shower and - (No tub bath for 1-2 weeks) May resume sexual activity in: - (2-4 weeks) Dressing / Incision Call your doctor if you observe: Fever of 101 or Higher, Inability to urinate, Inability to have a bowel movement, Using more than 1 pad per hour, Shortness of breath, Chest pain, Calf discomfort and Uncontrolled pain Follow Up Care Please Follow Up With: Tanesha Lind MD When: 2-4 weeks Test Results: Test results from this visit will be discussed in further detail at your follow-up appointment, if applicable. Discharge Plan Admission Primary Reason for Your Visit: Hysteroscopy, D&C, Polyp removal Attending Provider: Tanesha Lind Primary Care Provider: Librado Ybarra Instructions Patient Instructions: Hysteroscopy Discharge Orders/Prescriptions Prescriptions: New ibuprofen 600 mg tablet 600 mg PO Q8H PRN (Reason: pain) Qty: 30 RF: 0 No Action cholecalciferol (vitamin D3) 50 mcg (2,000 unit) capsule 50 mcg PO DAILY RF: 0 mecobalamin (vitamin B12) 1,000 mcg tablet,disintegrating 2,500 mcg sublingual .M, W, F RF: 0 lorazepam 0.5 mg tablet 0.5 mg PO DAILY RF: 0 omeprazole 20 MG capsule 20 mg PO DAILY RF: 0 sertraline 100 mg tablet 150 mg PO DAILY RF: 0 multivitamin Tablet 1 tab PO DAILY RF: 0 Referrals / Follow Up: Librado Ybarra DO [Primary Care Provider] - Disposition Disposition (needs filled in before D/C Order can be placed): Home, Self Care
[2021-01-18] MEDS: Ondansetron 4 MG/2 ML Vial IM (10:35)
== END 2021-01-18 11:50 | disposition home or self-care (01) ==
LOC: SDC 07:18 → AC 07:18
PROVIDERS: Anesthesiology; PCP Family Medicine; Referring Provider Obstetrics & Gynecology; Visit Provider Obstetrics & Gynecology
PROC: 0UB98ZZ Excision of Uterus, Via Natural or Artificial Opening Endoscopic (ICD-10-PCS; CPT 58558; principal; 2021-01-18 08:40)
DX: N85.01 Benign endometrial hyperplasia (principal); N92.1 Excessive and frequent menstruation with irregular cycle; F41.9 Anxiety disorder, unspecified; F32.A Depression, unspecified; K21.9 Gastro-esophageal reflux disease without esophagitis; Z79.899 Other long term (current) drug therapy; Z87.891 Personal history of nicotine dependence; M99.01 Segmental and somatic dysfunction of cervical region; M99.02 Segmental and somatic dysfunction of thoracic region; M99.03 Segmental and somatic dysfunction of lumbar region
CPT/HCPCS: 00952; 58558; 36415; 81025; 86850; 86900; 86901; 88305; J7120; J2405

== ENCOUNTER → 2021-01-24 09:04 | Outpatient (CLI) | payer OTHER, SELFPAY | LOC: LABSPEC 01-25 09:05 | PROVIDERS: PCP Family Medicine; Visit Provider Family Medicine | DX: Z20.828 Contact with and (suspected) exposure to other viral communicable diseases (principal); R05.9 Cough, unspecified | CPT/HCPCS: 87633; 87635; U0005; U0003 ==

== ENCOUNTER → 2021-01-25 14:57 | Outpatient (CLI) | payer OTHER, SELFPAY | LOC: MTLAB 14:58 → LABSPEC 14:59 | PROVIDERS: PCP Family Medicine; Visit Provider Obstetrics & Gynecology | DX: N92.0 Excessive and frequent menstruation with regular cycle (principal); N92.5 Other specified irregular menstruation | CPT/HCPCS: 84144 ==

== ENCOUNTER → 2021-02-05 15:00 | Outpatient (CLI) | payer OTHER, SELFPAY ==
[2021-02-05 15:50] LABS: Estradiol 37.3 pg/mL; Follicle Stimulating Hormone 6.1 mIU/mL
== END ==
PROVIDERS: PCP Family Medicine; Visit Provider Obstetrics & Gynecology
DX: E28.9 Ovarian dysfunction, unspecified (principal); R68.82 Decreased libido
CPT/HCPCS: 82670; 83001

== ENCOUNTER → 2021-02-06 17:16 | Outpatient (CLI) | payer OTHER, SELFPAY ==
[2021-02-09 00:07] LABS: Chlamydia By Nucleic Acid AMP Negative (Negative)
[2021-02-09 13:39] LABS: Gonococcus By Nucleic Acid AMP Negative (Negative)
== END ==
PROVIDERS: PCP Family Medicine; Visit Provider Obstetrics & Gynecology
DX: Z11.3 Encounter for screening for infections with a predominantly sexual mode of transmission (principal)
CPT/HCPCS: 87491; 87591

== ENCOUNTER → 2021-03-26 16:40 | Outpatient (CLI) | payer OTHER, SELFPAY | PROVIDERS: PCP Family Medicine; Visit Provider Family Medicine | DX: U07.1 COVID-19 (principal) | CPT/HCPCS: 87635; U0005; U0003 ==

== ENCOUNTER 2021-03-30 11:56 | Outpatient (CLI) | payer OTHER, SELFPAY ==
[2021-03-30] MEDS: 0.9% Saline Lock 10 ML Syringe IV (12:12)
[2021-03-30 12:16] VITALS: BP 128/92; PULSE 79; RESP 16; TEMP 37.2; O2SAT 99; BMI 36.0
[2021-03-30 12:57] VITALS: BP 120/79; PULSE 76; RESP 16; TEMP 37.2; O2SAT 97
[2021-03-30 13:45] VITALS: BP 129/84; PULSE 73; RESP 16; TEMP 37.2; O2SAT 99
== END 2021-03-30 14:00 | disposition home or self-care (01) ==
LOC: MS3OUT 11:57 → MS3 11:57
PROVIDERS: PCP Family Medicine; Referring Provider Nurse Practitioner Acute Care; Visit Provider Nurse Practitioner Acute Care
DX: Z23 Encounter for immunization (principal); U07.1 COVID-19
CPT/HCPCS: J7050; M0245; Q0245; A4216

== ENCOUNTER 2021-05-23 17:09 | Outpatient (CLI) | payer BC, SELFPAY ==
--- NOTE | 2021-05-23 | EMB_PTH ---
PATIENT: KALA ONEILL [facility] U#:[id number] AGE/SX: 35/F ROOM: RE05/23/[address]: Dr. Tanesha Johnson MD : 1985 BED: DIS: 05/23/2021 SPEC #: [id number] RECD: 05/23/21 17:10 STATUS: IFRAH REWilly #: [id number] ROBERT: 05/23/21 00:[address]: Tanesha Lind DEPT: SURGICAL PATHOLOGY RECD BY: Morgan Walls ENTERED: 05/24/21 08:40 SP TYPE: ENDOM BX/C BARRY DR: Dr. 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 Mild chronic endometritis. Fibrinopurulent material. AM:mary 05/25/2021 MICROSCOPIC DESCRIPTION Slides are reviewed. GROSS DESCRIPTION Received in fixative is one container labeled with the patient's name and designated endometrial biopsy. The specimen consists of multiple irregular and elongated fragments of pink-girard soft tissue that in aggregate measure 2.2 x 1.9 x 0.2 cm. The specimen is totally submitted in one cassette. / AM:mary 05/24/2021 TC:2 CPT: 35919
== END 2021-05-23 23:59 | disposition home or self-care (01) ==
LOC: LABSPEC 17:10
PROVIDERS: PCP Family Medicine; Visit Provider Obstetrics & Gynecology
DX: N85.00 Endometrial hyperplasia, unspecified (principal)
CPT/HCPCS: 88305

== ENCOUNTER 2021-06-17 08:30 | Emergency (ER) | payer BC, SELFPAY ==
[2021-06-17 08:31] VITALS: BP 132/63; PULSE 82; RESP 14; TEMP 36.2; O2SAT 95; BMI 35.5
--- NOTE | 2021-06-17 08:44 | RAD_ITS ---
EXAM: XR RIGHT CLAVICLE COMPLETE, 2 OR MORE VIEWS CLINICAL INDICATION: fall pain TECHNIQUE: Frontal and lordotic views of the right clavicle. This report was created using [employer] report generation technology. COMPARISON: None. FINDINGS: BONES/JOINTS: Unremarkable. No acute fracture. No subluxation. Normal alignment. Preservation of the joint space. No sclerotic or destructive changes observed. SOFT TISSUES: Unremarkable. No soft tissue swelling or gas. No radiopaque foreign body. RAD/Clavicle IMPRESSION: Negative right clavicle x-rays. Electronically Signed: Marcial España MD at 9:27 EDT Reading Location ID and State: [facility] / [place] , Service support ,
--- NOTE | 2021-06-17 08:45 | RAD_ITS ---
EXAM: XR CERVICAL SPINE, 2 OR 3 VIEWS CLINICAL INDICATION: Injury/Pain TECHNIQUE: Frontal and lateral views of the cervical spine. This report was created using [employer] technology. COMPARISON: None. FINDINGS: VERTEBRAE: There is mild straightening of the normal cervical lordosis. This can suggest neck strain. C4-5, C5-6. There is endplate spondylosis of the vertebral body. Loss of intervertebral disc height. The odontoid process is obscured by the overlying hard palate on the open mouth view. Therefore, it is not fully evaluated by plain film. No significant facet arthropathy. DISC SPACES: Unremarkable. Disc spaces are maintained. SOFT TISSUES: Unremarkable. No prevertebral soft tissue widening. LUNG APICES: Clear. RAD/Cerv Spine 2 or 3 Views IMPRESSION: 1. Mild degenerative findings at C4-5 and C5-6. 2. There is mild straightening of the normal cervical lordosis. This can suggest neck strain. Electronically Signed: Marcial España MD at 9:26 EDT ,
--- NOTE | 2021-06-17 08:45 | EDS_ITS ---
HPI History of Present Illness Chief Complaint: Other, Pain/Inj Informant: patient Onset/Context/Timing Onset: Days (4) Mechanism/Context: Fall Location of pain/injuries: Right shoulder Quality of Pain: Sharp Location: Neck and posterior right shoulder Worsened by: Movement Relieved by: Nothing Associated Symptoms Associated Symptoms: Negative for Parasthesias, Weakness, Loss of function, Inability to ambulate and Loss of consciousness Narrative Narrative: Patient presents with neck and right shoulder pain that began after a fall 4 days ago. Patient states he slipped on a Tupperware lid and fell backwards. Patient denies any loss of consciousness. Patient states her pain has gradually gotten worse. Patient describes her pain as sharp. Patient states her pain is worse with any movement. Patient states that she was using heat which was helping but does not seem to be effective any longer. Patient states she has also taken Flexeril and baclofen which has not been helping with her pain. Patient denies any paresthesias or weakness. [facility] Medical History Anxiety Anxiety and depression Cardiology follow-up encounter delivery delivered Depression Former smoker Gastric reflux GERD (gastroesophageal reflux disease) History of echocardiogram Hx of pilonidal cyst Hypothyroid Hypothyroidism Shortness of breath on exertion Type 2 diabetes mellitus Wears contact lenses Wears glasses Home Medications omeprazole 20 mg PO DAILY 10/26/15 [History Last Taken 1 Day Ago ~09/16/19] sertraline 100 mg tablet 150 mg PO DAILY tab 03/06/20 [History Last Taken Unknown] cholecalciferol (vitamin D3) 50 mcg (2,000 unit) capsule 50 mcg PO DAILY 10/30/20 [History Last Taken Unknown] mecobalamin (vitamin B12) 1,000 mcg disintegrating tablet,sublingual 2,500 mcg SUBLINGUAL .M, W, F tab 10/30/20 [History Last Taken Unknown] lorazepam 0.5 mg tablet 0.5 mg PO DAILY tab 01/10/21 [History Last Taken Unknown] multivitamin 1 tab PO DAILY 01/16/21 [History Last Taken Unknown] ibuprofen 600 mg PO Q8H PRN #30 tab 01/18/21 [Rx Last Taken Unknown] levothyroxine 50 mcg PO DAILY 06/17/21 [History Last Taken Unknown] Allergy/AdvReac Type Severity Reaction Status Date / Time citalopram hydrobromide Allergy Hives Verified 06/17/21 08:34 [From Celexa] Penicillins [PCN] Allergy Hives Verified 06/17/21 08:34 tetanus immune globulin Allergy Hives Verified 06/17/21 08:34 liraglutide [From Victoza] AdvReac Nausea/Vom/ Verified 06/17/21 08:34 Diarrhea morphine AdvReac Itching Verified 06/17/21 08:34 Family History Mother Hypertension High cholesterol Sister Thyroid disorder cancer Cancer Surgical History H/O repair of right rotator cuff History of appendectomy History of tonsillectomy Hx of cholecystectomy Previous section Social History household members: spouse and children housing: house current occupational status: employed 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 pets and animals: Yes pets and animals: dog(s) Smoking Status: Former smoker alcohol intake: never substance use type: does not use what type of physical activity do you participate in: walking and weight training frequency: 3-4 times per week do you feel safe at home: Yes ROS ROS ED Constitutional Constitutional ED: Denies chills or fever(s) Eyes Eyes: Denies blurry vision or change in vision ENT ENT ED: Reports sore throat; Denies rhinorrhea Cardiovascular Cardiovascular: Denies chest pain or palpitations Respiratory/Chest Respiratory/Chest: Reports cough; Denies dyspnea Gastrointestinal Gastrointestinal: Denies nausea or vomiting Genitourinary Genitourinary ED: Denies dysuria or hematuria Musculoskeletal Musculoskeletal: Reports back pain and neck pain Integumentary Denies abscess or rash Neurologic Neurologic: Reports headache(s); Denies weakness Allergic/Immunologic Allergic/Immunologic ED: Denies mouth swelling or urticaria EXAM Physical Exam Const Vital Signs: 06/17/21 08:31 Temperature 97.2 F L Temperature Source Temporal Pulse Rate 82 Respiratory Rate 14 Blood Pressure 132/63 H Blood Pressure Mean 86 Pulse Ox 95 Oxygen Delivery Method Room Air Positive well nourished and well developed General Appearance ED: well developed and NAD HEENT atraumatic; Negative for tenderness Neck Neck Narrative: There is tenderness over the cervical paraspinal muscles, worse on the right. There is also some mild midline tenderness. There is no bony crepitance or step-off. Range of motion was limited in all motions of the cervical spine secondary to pain. There is no edema or ecchymosis noted. General: tenderness Extremity Extremity Narrative: There is tenderness over the right acromioclavicular joint. There is also some tenderness over the right trapezius muscle. There is no bony crepitance or step-off. Range of motion was limited in all motions of the right shoulder secondary to pain. Radial pulses are equal bilateral. Sensation was intact to light touch in the radial, median, ulnar, and axillary areas bilaterally. Strength is 5/5 in the radial, median, and ulnar areas bilaterally. Neuro oriented x3, CN's II-XII intact bilaterally, moves all extremities, no focal motor deficits and no sensory deficits noted [place] Coma Scale: document GCS findings Spontaneous Obeys Commands Oriented 15 Sensorium / Orientation: alert Psych mental status grossly normal MDM MDM MDM Narrative Medical decision making narrative: X-rays of the cervical spine were obtained. There are 3 views. On my interpretation, there is no acute fracture or spondylo listhesis. There is no acute abnormality. There are some mild degenerative changes at C4-5 and C5-6. Radiologist also interpreted the x-ray and agrees. X-rays of the right clavicle were obtained. There are 2 views. On my interpretation, there is no acute fracture. There is no AC joint separation. Radiologist also interpreted the x-rays and agrees. Patient was advised of her findings. Patient was instructed to use ice to the area. Patient was instructed continue Tylenol and ibuprofen as needed for pain. Patient was instructed to follow-up with her primary care physician in 5 to 7 days. Patient understood and was agreeable with the plan. All questions were answered. Radiography Diagnostic Testing: Clinical Impression(s) from Imaging Studies Clavicle X-Ray 06/17/21 08:44 IMPRESSION: Negative right clavicle x-rays. Electronically Signed: Marcial España MD at 9:27 EDT Reading Location ID and State: [facility] / [place] , Service support , Cervical Spine X-Ray 06/17/21 08:45 IMPRESSION: 1. Mild degenerative findings at C4-5 and C5-6. 2. There is mild straightening of the normal cervical lordosis. This can suggest neck strain. Electronically Signed: Marcial España MD at 9:26 EDT Reading Location ID and State: [facility] / [place] , Service support , Discharge Plan Triage Chief Complaint: Other, Pain/Inj ED Provider: Kenney Salazar Dx/Rx/DC Orders Clinical Impression: Acute cervical myofascial strain, Right shoulder strain Instructions: ED Neck Sprain or Strain Prescriptions: No Action cholecalciferol (vitamin D3) 50 mcg (2,000 unit) capsule 50 mcg PO DAILY RF: 0 mecobalamin (vitamin B12) 1,000 mcg tablet,disintegrating 2,500 mcg sublingual .M, W, F RF: 0 lorazepam 0.5 mg tablet 0.5 mg PO DAILY RF: 0 omeprazole 20 MG capsule 20 mg PO DAILY RF: 0 sertraline 100 mg tablet 150 mg PO DAILY RF: 0 multivitamin Tablet 1 tab PO DAILY RF: 0 ibuprofen 600 mg tablet 600 mg PO Q8H PRN (Reason: pain) Qty: 30 RF: 0 levothyroxine 50 mcg tablet 50 mcg PO DAILY RF: 0 Primary Care Provider: Librado Ybarra Referrals: Librado Ybarra DO [Primary Care Provider] - 3-5 Days Disposition Disposition: Home, Self Care
[2021-06-17 10:12] VITALS: RESP 16
== END 2021-06-17 10:12 | disposition home or self-care (01) ==
PROVIDERS: Emergency Provider Emergency Medicine; PCP Family Medicine; Visit Provider Emergency Medicine
DX: S16.1XXA Strain of muscle, fascia and tendon at neck level, initial encounter (principal); S46.911A Strain of unspecified muscle, fascia and tendon at shoulder and upper arm level, right arm, initial encounter; F41.9 Anxiety disorder, unspecified; F32.A Depression, unspecified; K21.9 Gastro-esophageal reflux disease without esophagitis; E03.9 Hypothyroidism, unspecified; W19.XXXA Unspecified fall, initial encounter; Z87.891 Personal history of nicotine dependence; Z79.899 Other long term (current) drug therapy
CPT/HCPCS: 72040; 73000; 99282

== ENCOUNTER 2021-06-30 11:24 | Outpatient (CLI) | payer BC, SELFPAY ==
--- NOTE | 2021-06-30 11:30 | US_ITS ---
STUDY: THYROID ULTRASOUND REASON FOR EXAM: Female, 35 years old. THYROID NODULES, RE-ASSESS TECHNIQUE: Ultrasound evaluation of the thyroid was performed with real-time and static light-scale imaging. COMPARISON: 08/04/2020 FINDINGS: RIGHT LOBE: The right lobe of the thyroid gland measures 5.1 x 1.5 x 1.4 cm. There is a heterogeneous echotexture. There is a stable small mid pole nodule measuring 3 x 4 x 2 mm LEFT LOBE: The left lobe of the thyroid gland measures 4.8 x 1.5 x 1.2 cm. There is a heterogeneous echotexture. Upper pole and mid pole complex nodules measuring less than 1 cm, largest one measuring 5 x 3 x 3 mm ISTHMUS: The isthmus measures 1.7 mm. The regional lymph nodes are normal. US/Thyroid IMPRESSION: Stable heterogeneous appearance of the thyroid with stable small subcentimeter nodule Electronically Signed: Rashad Harden DO at 6:35 EDT ,
== END 2021-06-30 23:59 | disposition home or self-care (01) ==
PROVIDERS: PCP Family Medicine; Visit Provider Family Medicine
DX: E04.2 Nontoxic multinodular goiter (principal)
CPT/HCPCS: 76536

== ENCOUNTER → 2021-07-25 | Outpatient (CLI) | payer BC, SELFPAY ==
[2021-07-25 13:52] LABS: Free T3 2.8 pg/mL (2.18-3.98); T4 Free Direct 0.76 ng/dL (0.76-1.46); Thyroid Stim Hormone (TSH) 1.29 uIU/mL (0.358-3.74)
[2021-08-03 08:42] LABS: T3 Reverse 12.6 ng/dL (9.2-24.1)
== END | disposition home or self-care (01) ==
LOC: WOBLAB 13:01
PROVIDERS: PCP Family Medicine; Visit Provider Obstetrics & Gynecology
DX: R53.82 Chronic fatigue, unspecified (principal); F41.1 Generalized anxiety disorder
CPT/HCPCS: 36415; 82533; 82627; 84439; 84443; 84480; 84481; 84482; 82626

== ENCOUNTER → 2021-07-28 | Outpatient (CLI) | payer BC, SELFPAY | END | disposition home or self-care (01) | LOC: LAB 07:33 | PROVIDERS: PCP Family Medicine; Visit Provider Obstetrics & Gynecology | DX: R53.82 Chronic fatigue, unspecified (principal); R63.5 Abnormal weight gain; R68.82 Decreased libido | CPT/HCPCS: 36415; 82533 ==

== ENCOUNTER → 2021-08-02 | Outpatient (CLI) | payer BC, SELFPAY ==
[2021-08-02 11:16] LABS: Hematocrit 42.2 % (37-47); Hemoglobin 14.7 g/dL (12.0-15.0); Mean Corp Hgb Conc 34.8 g/dL (32-36); Mean Corpuscular Hgb 30.2 pg (27.0-32.0); Mean Corpuscular Volume 86.7 fL (81-99); Mean Platelet Vol. 10.6 fl (6.2-12.0); Platelet Count 163 K/mm3 (150-450); RBC Distribution Width CV 12.2 % (11.6-14.6); RBC Distribution Width SD 38.4 fl (35.1-43.9); Red Blood Count 4.87 M/mm3 (4.2-5.4); White Blood Count 7.5 K/mm3 (4.4-11.0)
[2021-08-02 11:24] LABS: International Normalized Ratio 1.1; Prothrombin Time (Protime)PT. 13.4 SECONDS (11.7-14.9)
[2021-08-02 11:25] LABS: Partial Thromboplast Time 34.3 Seconds (24.1-36.2)
[2021-08-02 11:29] LABS: AST(SGOT) 22 U/L (15-37); Alanine Aminotransfer ALT/SGPT 42 U/L (13-56); Albumin, Serum 4.4 g/dL (3.2-5.0); Alkaline Phosphatase 55 U/L (45-117); Bilirubin, Direct 0.17 mg/dL (0.00-0.30); Globulin 3.6 g/dL (2.2-4.2)
== END | disposition home or self-care (01) ==
LOC: WOBLAB 10:11
PROVIDERS: PCP Family Medicine; Visit Provider Obstetrics & Gynecology
DX: J38.5 Laryngeal spasm (principal)
CPT/HCPCS: 36415; 80076; 85027; 85610; 85730

== ENCOUNTER → 2021-08-14 | Outpatient (CLI) | payer BC, SELFPAY ==
--- NOTE | 2021-08-14 | EMB_PTH ---
PATIENT: KALA ONEILL [facility] U#:[id number] AGE/SX: 35/F ROOM: RE08/14/[address]: Dr. Tanesha Johnson MD : 1985 BED: DIS: 08/14/2021 SPEC #: [id number] RECD: 08/14/21 16:59 STATUS: IFRAH REQ #: [id number] ROBERT: 08/14/21 00:[address]: Tanesha Lind DEPT: SURGICAL PATHOLOGY RECD BY: Morgan Walls ENTERED: 08/15/21 09:17 SP TYPE: ENDOM BX/C BARRY DR: Dr. Librado Ybarra, DO Tissues: Endometrium, NOS Procedures: Surgery Specimen Level IV HEADER OPERATION: Endometrial biopsy PRE-OP DIAGNOSIS: Simple endometrial hyperplasia TISSUE SUBMITTED: Endometrial biopsy MICROSCOPIC DIAGNOSIS Endometrial biopsy: Consistent with extensive exogenous hormone effects. Negative for hyperplasia. See comment. SJ:mary 08/16/2021 COMMENT Clinical correlation and appropriate follow up are necessary. Please make reference to previous specimens ([id number]) endometrial curettings and polyp with diagnosis of ?mildly disordered proliferative endometrium and fragments of endometrial polyp with simple endometrial hyperplasia without atypia? and ([id number]) endometrial, biopsy with diagnosis of ?benign stromal hyperplasia suggestive of exogenous hormone effect, mild chronic endometritis and fibrinopurulent material.? MICROSCOPIC DESCRIPTION Slides are reviewed. GROSS DESCRIPTION Received in fixative is one container labeled with the patient's name and designated endometrial biopsy. The specimen consists of multiple fragments of hemorrhagic soft tissue that in aggregate measure 3 x 2.5 x 0.2 cm. The specimen is totally submitted in one cassette. / SHAHIDA:mary 08/15/2021 TC:3 CPT: 18818
== END | disposition home or self-care (01) ==
LOC: LABSPEC 15:42
PROVIDERS: PCP Family Medicine; Visit Provider Obstetrics & Gynecology
DX: N85.01 Benign endometrial hyperplasia (principal)
CPT/HCPCS: 88305

== ENCOUNTER → 2021-11-06 | Outpatient (CLI) | payer OTHER, SELFPAY ==
[2021-11-06 09:31] LABS: Erythrocyte Sedimentation Rate 10 mm/hr (0-30)
[2021-11-06 09:59] LABS: CRP < 2.90 mg/L (0.0-3.0); Rheumatoid Factor < 10.0 IU/mL (<15); T4 Free Direct 0.72 ng/dL (0.76-1.46); Thyroid Stim Hormone (TSH) 1.62 uIU/mL (0.358-3.74)
[2021-11-07 16:21] LABS: ANTINUCLEAR ANTIBODIES DIRECT Negative (Negative)
[2021-11-12 18:03] LABS: CCP IgG Antibodies 4 units (0-19)
== END | disposition home or self-care (01) ==
PROVIDERS: PCP Family Medicine; Referring Provider Family Medicine; Visit Provider Family Medicine
DX: R53.83 Other fatigue (principal); E03.9 Hypothyroidism, unspecified; M25.50 Pain in unspecified joint
CPT/HCPCS: 36415; 84439; 84443; 85652; 86038; 86140; 86200; 86225; 86235; 86431

== ENCOUNTER → 2022-01-03 | Outpatient (CLI) | payer OTHER, SELFPAY ==
--- NOTE | 2022-01-03 16:50 | RAD_ITS ---
INDICATION: Right knee pain status post fall. EXAMINATION/TECHNIQUE: X-RAY - RIGHT XR Knee Complete 4 Views or More COMPARISON: Right knee radiographs from 10/03/2014 FINDINGS: SOFT TISSUES: No significant soft tissue swelling or significant joint effusion. No radiopaque foreign body detected. BONES/JOINTS: No acute fracture or subluxation. Normal alignment. Preservation of the joint space(s). No suspicious osseous lesion observed. RAD/Knee 4 or More Views IMPRESSION: Negative right knee. Electronically Signed: Librado De Leon MD at 7:16 EDT ,
== END | disposition home or self-care (01) ==
LOC: MTRAD 15:58
PROVIDERS: PCP Family Medicine; Referring Provider Family Medicine; Visit Provider Family Medicine
DX: M25.561 Pain in right knee (principal); F32.9 Major depressive disorder, single episode, unspecified
CPT/HCPCS: 73564

== ENCOUNTER 2022-01-06 13:44 | Emergency (ER) | payer OTHER, SELFPAY ==
[2022-01-06 13:46] VITALS: BP 159/109; PULSE 76; RESP 18; TEMP 36.4; O2SAT 99; BMI 37.4
[2022-01-06 14:15] LABS: Absolute Lymphocyte Count 3.59 X10^3/uL (0.83-4.51); Basophil# 0.05 X10^3/uL; Basophil% 0.5 % (0-1); Eosinophil# 0.29 X10^3/uL; Eosinophils% 3.1 % (0-5); Hematocrit 44.8 % (37-47); Hemoglobin 14.7 g/dL (12.0-15.0); Lymphocyte # 3.59 X10^3/ul (0.83-4.51); Lymphocyte % 37.8 % (19-41); Mean Corp Hgb Conc 32.8 g/dL (32-36); Mean Corpuscular Hgb 30.1 pg (27.0-32.0); Mean Corpuscular Volume 91.6 fL (81-99); Mean Platelet Vol. 11.4 fl (6.2-12.0); Monocyte# 0.52 X10^3/uL; Monocyte% 5.5 % (0-10); NRBC Flagged by Analyzer 0 % (0-5); Neutrophil # 5.01 X10^3/uL (2.7-7.7); Neutrophil % 52.8 % (47-70); Platelet Count 187 K/mm3 (150-450); RBC Distribution Width SD 40.2 fl (35.1-43.9); Red Blood Count 4.89 M/mm3 (4.2-5.4); White Blood Count 9.5 K/mm3 (4.4-11.0)
--- NOTE | 2022-01-06 14:20 | EX.ED.DYSGE1 ---
HPI History of Present Illness Chief Complaint: General Illness Informant: patient Narrative Narrative: 36-year-old female presenting with depression and suicidal thoughts. Patient states she has been in trauma counseling for the past month. She believes this is bringing up old memories and making her depression worse. She has had thoughts of going into her car and starting it and just staying in there. She is on Lexapro and BuSpar. No past suicide attempts. She was concerned today that if she did not get help that she would harm herself. Prior similar symptoms: Yes Recent Illness/Hospitalization: No [facility] Medical History Acute bronchitis, unspecified Anxiety Anxiety and depression Cardiology follow-up encounter delivery delivered Depression Encounter for screening laboratory testing for COVID-19 virus Former smoker Gastric reflux GERD (gastroesophageal reflux disease) History of echocardiogram Hx of pilonidal cyst Hypothyroid Hypothyroidism Shortness of breath on exertion Type 2 diabetes mellitus Wears contact lenses Wears glasses Home Medications buspirone 7.5 mg tablet 7.5 mg PO DAILY 01/06/22 [History Last Taken Unknown] escitalopram oxalate 10 mg tablet 10 mg PO DAILY 01/06/22 [History Last Taken Unknown] Allergy/AdvReac Type Severity Reaction Status Date / Time citalopram hydrobromide Allergy Hives Verified 01/06/22 13:46 [From Celexa] Penicillins [PCN] Allergy Hives Verified 01/06/22 13:46 tetanus immune globulin Allergy Hives Verified 01/06/22 13:46 liraglutide [From Victoza] AdvReac Nausea/Vom/ Verified 01/06/22 13:46 Diarrhea morphine AdvReac Itching Verified 01/06/22 13:46 Family History Mother Hypertension High cholesterol Sister Thyroid disorder cancer Cancer Surgical History H/O repair of right rotator cuff History of appendectomy History of tonsillectomy Hx of cholecystectomy Previous section Social History household members: spouse and children housing: house current occupational status: employed 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 pets and animals: Yes pets and animals: dog(s) Smoking Status: Former smoker alcohol intake: never substance use type: does not use what type of physical activity do you participate in: walking and weight training frequency: 3-4 times per week do you feel safe at home: Yes ROS ROS ED Constitutional Constitutional ED: Denies fever(s) ENT ENT ED: Denies rhinorrhea or sore throat Cardiovascular Cardiovascular: Denies chest pain or palpitations Respiratory/Chest Respiratory/Chest: Denies cough or dyspnea Gastrointestinal Gastrointestinal: Denies abdominal pain, diarrhea, nausea or vomiting Genitourinary Genitourinary ED: Denies dysuria Musculoskeletal Musculoskeletal: Denies myalgias Integumentary Denies rash Neurologic Neurologic: Denies headache(s) Psychiatric Psychiatric: Reports depression and suicidal thoughts EXAM Physical Exam Const Vital Signs: 01/06/22 13:46 Temperature 97.6 F L Temperature Source Temporal Pulse Rate 76 Respiratory Rate 18 Blood Pressure 159/109 H Blood Pressure Mean 125 Pulse Ox 99 Oxygen Delivery Method Room Air Positive well nourished and well developed General Appearance ED: well developed HEENT Reports normocephalic and head/scalp atraumatic Eyes PERRL and EOMs intact bilaterally Neck supple General: Negative for tenderness Chest Wall inspection of chest normal Resp normal respiratory effort and clear to auscultation bilaterally Cardio regular rate and regular rhythm GI non-tender and non-distended no CVA tenderness Extremity normal to inspection Neuro oriented x3 Sensorium / Orientation: alert Psych Psych Narrative: Depressed affect with suicidal ideation Mood & Affect: depressed Skin no rashes or lesions noted MDM MDM MDM Narrative Medical decision making narrative: CBC, chemistries unremarkable. Alcohol is negative. negative. COVID-negative. Tox screen negative. Discussed with counseling center and they will evaluate the patient in the ED. patient was seen by the counselor in the ED. Plan for follow-up with intensive outpatient therapy. Patient feels comfortable with this plan. Family is comfortable with this plan. She denies suicidal thoughts currently. Advised signs and symptoms for which to return to the ED. Lab Data Attestation: I reviewed the patient's lab results. Labs: Laboratory Results - last 24 hr 01/06/22 01/06/22 01/06/22 14:05 14:05 14:05 WBC 9.5 RBC 4.89 Hgb 14.7 Hct 44.8 MCV 91.6 MCH 30.1 MCHC 32.8 RDW Std Deviation 40.2 RDW Coeff of Tania 12.0 Plt Count 187 MPV 11.4 Immature Gran % (Auto) 0.300 Neut % (Auto) 52.8 Lymph % (Auto) 37.8 [facility] % (Auto) 5.5 Eos % (Auto) 3.1 Baso % (Auto) 0.5 Absolute Neuts (auto) 5.0 Absolute Lymphs (auto) 3.59 Nucleated RBC % 0 Sodium 137 Potassium 3.9 Chloride 104 Carbon Dioxide 25.0 Anion Gap 8 BUN 13 Creatinine 0.66 Estim Creat Clear Calc 99.80 Est GFR (MDRD) Af Amer 129 Est GFR (MDRD) Non-Af 107 BUN/Creatinine Ratio 19.7 Glucose 92 Calcium 9.8 Serum , Qual Urine Opiates Screen Urine Methadone Screen Ur Barbiturates Screen Ur Phencyclidine Scrn Ur Amphetamines Screen MDMA (Ecstasy) Screen U Benzodiazepines Scrn Urine Cocaine Screen U Cannabinoids Screen Ur Drug Screen Comment Ethyl Alcohol 7.0 01/06/22 01/06/22 14:05 14:05 WBC RBC Hgb Hct MCV MCH MCHC RDW Std Deviation RDW Coeff of Tania Plt Count MPV Immature Gran % (Auto) Neut % (Auto) Lymph % (Auto) [facility] % (Auto) Eos % (Auto) Baso % (Auto) Absolute Neuts (auto) Absolute Lymphs (auto) Nucleated RBC % Sodium Potassium Chloride Carbon Dioxide Anion Gap BUN Creatinine Estim Creat Clear Calc Est GFR (MDRD) Af Amer Est GFR (MDRD) Non-Af BUN/Creatinine Ratio Glucose Calcium Serum , Qual NEGATIVE Urine Opiates Screen NEGATIVE Urine Methadone Screen NEGATIVE Ur Barbiturates Screen NEGATIVE Ur Phencyclidine Scrn NEGATIVE Ur Amphetamines Screen NEGATIVE MDMA (Ecstasy) Screen NEGATIVE U Benzodiazepines Scrn NEGATIVE Urine Cocaine Screen NEGATIVE U Cannabinoids Screen NEGATIVE Ur Drug Screen Comment Ethyl Alcohol Discharge Plan Triage Chief Complaint: General Illness Other Complaint: Mental Health ED Provider: Caron Vaughn Dx/Rx/DC Orders Clinical Impression: Depression Instructions: ED Depression Prescriptions: No Action buspirone 7.5 mg tablet 7.5 mg PO DAILY Label Comments: TAKE 1 TABLET BY MOUTHTONCE DAILY escitalopram oxalate 10 mg tablet 10 mg PO DAILY Label Comments: TAKE 1 TABLET BY MOUTH ONCE DAILY Primary Care Provider: Librado Ybarra Referrals: Librado Ybarra DO [Primary Care Provider] - Counseling,Center [Group of Physicians] - Disposition Disposition: Home, Self Care
[2022-01-06 14:22] LABS: Internal QC Validated? YES +Cl - CLEAR BKGD; Pregnancy, Serum, hCG Quali. NEGATIVE Negative
[2022-01-06 14:27] LABS: Amphetamine Urine VISTA NEGATIVE (<1000 ng/mL); Barbiturate Urine VISTA NEGATIVE (< 200 ng/mL); Benzodiazepine Urine VISTA NEGATIVE (< 200 ng/mL); Cocaine Urine VISTA NEGATIVE (< 300 ng/mL); Ecstacy Urine VISTA NEGATIVE (< 500 ng/mL); Methadone Urine VISTA NEGATIVE (< 300 ng/mL); PCP Urine VISTA NEGATIVE (< 25 ng/mL); THC Urine VISTA NEGATIVE (< 50 ng/mL); Vista UDS pH Range 6
[2022-01-06 14:29] LABS: Anion Gap 8 (5-15); BUN 13 mg/dL (7-18); BUN/Creat Ratio 19.7 RATIO (10-20); Calcium,Total 9.8 mg/dL (8.5-10.1); Chloride 104 mmol/L (98-107); Creatinine, Serum 0.66 mg/dL (0.55-1.02); EST Glomerular Filtration Rate 107 mL/min (>60); Est Glom Filt Rate - Afr Amer 129 mL/min (>60); Glucose 92 mg/dL (74-106); Potassium 3.9 mmol/L (3.5-5.1); Sodium Level 137 mmol/L (136-145)
--- NOTE | 2022-01-06 16:36 | ED.RN ---
COUNSELING CENTER WILL CALL PT IN AM. PT AND SPOUSE COMFORTABLE WITH GOING HOME. PT STATES SHE FEELS SAFE, VOICES UNDERSTANDING OF WHAT TO DO IF SUICIDAL THOUGHTS RETURN.
== END 2022-01-06 16:37 | disposition home or self-care (01) ==
PROVIDERS: Emergency Provider Emergency Medicine; PCP Family Medicine; Visit Provider Emergency Medicine
DX: F32.A Depression, unspecified (principal); R45.851 Suicidal ideations; F41.9 Anxiety disorder, unspecified; Z87.891 Personal history of nicotine dependence; Z79.899 Other long term (current) drug therapy
CPT/HCPCS: 80048; 80307; 82077; 84703; 85025; 87426; 99283

== ENCOUNTER → 2022-01-29 | Outpatient (CLI) | payer OTHER, SELFPAY ==
--- NOTE | 2022-01-29 14:12 | US_ITS ---
STUDY: ULTRASOUND OF THE FEMALE PELVIS - COMPLETE REASON FOR EXAM: Female, 36 years old. Abnormal bleeding LMP: 01/19/2022 TECHNIQUE: Transabdominal TECHNICAL QUALITY: Adequate. COMPARISON: None. FINDINGS: The uterus is anteverted and is in a midline position. The uterus measures 11.7 x 6.7 x 3.7 cm. Normal uterine cervix. The endometrium measures 4.0 mm in thickness, and is hyperechoic. There is no demonstrated endometrial mass. There is no demonstrated myometrial mass. I.U.D. - The patient does have an I.U.D. IUD noted in satisfactory position The right ovary is visualized. The right ovary measures 2.9 x 2.4 x 2.2 cm. There is no right ovarian cyst or ovarian mass. There is no visualized right adnexal mass or complex lesion. There is normal arterial and normal venous vascularity. The left ovary is visualized. The left ovary measures 3.8 x 4.3 x 2.2 cm. There is a simple 1.6 cm cyst.. There is normal arterial and normal venous vascularity. There is no fluid in the cul-de-sac. The pre void volume of the bladder was 657 ml. The post void volume of the bladder was less than 10 ml. Polycystic ovary disease: No. US/Pelvic (Non ) IMPRESSION: No suspicious sonographic findings, IUD noted in satisfactory position Electronically Signed: Harvey Ortiz MD at 15:33 EDT ,
== END | disposition home or self-care (01) ==
LOC: US 14:11
PROVIDERS: PCP Family Medicine; Referring Provider Obstetrics & Gynecology; Visit Provider Obstetrics & Gynecology
DX: N93.9 Abnormal uterine and vaginal bleeding, unspecified (principal)
CPT/HCPCS: 76856

== ENCOUNTER → 2022-04-23 | Outpatient (CLI) | payer OTHER, SELFPAY ==
[2022-04-23 14:30] LABS: T4 Free Direct 0.78 ng/dL (0.76-1.46); Thyroid Stim Hormone (TSH) 1.83 uIU/mL (0.358-3.74)
== END | disposition home or self-care (01) ==
LOC: WOBLAB 13:25
PROVIDERS: PCP Family Medicine; Visit Provider Obstetrics & Gynecology
DX: E03.9 Hypothyroidism, unspecified (principal)
CPT/HCPCS: 36415; 84439; 84443

== ENCOUNTER → 2022-05-28 | Outpatient (CLI) | payer OTHER, SELFPAY ==
[2022-05-28 14:37] LABS: Hemoglobin A1c 4.9 % (3.8-5.6)
[2022-05-28 14:47] LABS: Cholesterol 200 mg/dL (200); Glucose 93 mg/dL (74-106); High Density Lipoprotein 42 mg/dL; Insulin 21.7 mU/L (2.6-37.6); Triglycerides 189 mg/dL; Very Low Density Lipoprotein 38 mg/dL (5-40)
== END | disposition home or self-care (01) ==
LOC: WOBLAB 13:35
PROVIDERS: PCP Family Medicine; Visit Provider Family Medicine
DX: Z00.00 Encounter for general adult medical examination without abnormal findings (principal); E88.81 Metabolic syndrome and other insulin resistance
CPT/HCPCS: 36415; 80061; 82947; 83036; 83525

== ENCOUNTER → 2022-05-30 | Outpatient (CLI) | payer OTHER, SELFPAY | END | disposition home or self-care (01) | LOC: SL 13:14 | PROVIDERS: PCP Family Medicine; Referring Provider Nurse Practitioner Acute Care; Visit Provider Nurse Practitioner Acute Care | DX: G47.10 Hypersomnia, unspecified (principal) | CPT/HCPCS: 95806 ==

== ENCOUNTER → 2022-07-18 | Outpatient (CLI) | payer OTHER, SELFPAY ==
--- NOTE | 2022-07-18 08:45 | BI_ITS ---
MAMMOGRAPHY - BILATERAL DIAGNOSTIC REASON FOR EXAM: Female, 36 years old. Pea-sized lump in the anterior upper lateral aspect of the right breast. PERTINENT HISTORY: Non-contributory. TECHNIQUE: Digital bilateral breast james (3D mammographic acquisition) in the CC and MLO projections. 2-D mediolateral oblique (MLO) and craniocaudad (CC) views of both breasts were obtained. CAD: Full Field Digital Mammography with Computer Added Detection was performed. COMPARISON: Comparison is made with prior study of May 18, 2020. FINDINGS: Breast Composition: There are scattered areas of fibroglandular density. There are no dominant masses or suspicious calcifications. Stable small benign-appearing bilateral axillary lymph nodes. No other significant abnormalities are identified. There has been no significant change since the prior study. BI/DIAG MAMM W/CAD, BILAT IMPRESSION: Stable bilateral diagnostic mammogram. With the patient''s history of a palpable lump in the anterior upper lateral aspect of the right breast, correlation with ultrasound is recommended. ASSESSMENT CATEGORY: BIRADS Category 0: Incomplete. Need additional imaging evaluation. A letter regarding these results will be sent to the patient by the facility within 30 days. Approximately 10% of breast cancers are not detected by mammography. A normal mammogram should not delay biopsy of a clinically suspicious abnormality. Electronically Signed: Obdulio Jose MD at 11:21 EDT ,
--- NOTE | 2022-07-18 08:45 | US_ITS ---
STUDY: ULTRASOUND BREAST - RIGHT REASON FOR EXAM: Female, 36 years old. Palpable lump in the right breast. TECHNIQUE: Axial and longitudinal images of the RIGHT breast were performed with a high resolution ultrasound transducer. # OF IMAGES: 9 COMPARISON: Comparison is made with prior mammogram done earlier today. FINDINGS: RIGHT Breast: The upper outer quadrant of the right breast was examined with ultrasound. No sonographic and amount is seen. US/Breast Limited Unilateral IMPRESSION: No sonographic abnormality is seen. ASSESSMENT CATEGORY: BIRADS Category 1: Negative. A letter regarding these results will be sent to the patient by the facility within 30 days. Electronically Signed: Obdulio Jose MD at 15:44 EDT ,
== END | disposition home or self-care (01) ==
LOC: OPBI 08:43
PROVIDERS: PCP Family Medicine; Referring Provider Obstetrics & Gynecology; Visit Provider Obstetrics & Gynecology
DX: N63.14 Unspecified lump in the right breast, lower inner quadrant (principal)
CPT/HCPCS: 76642; 77062; 77066; G0279

== ENCOUNTER → 2022-07-19 | Outpatient (CLI) | payer OTHER, SELFPAY ==
--- NOTE | 2022-07-19 | EMB_PTH ---
PATIENT: KALA ONEILL [id number] AGE/SX: 36/F ROOM: RE07/19/[address]: Dr. Jaylene Moyer DO : 1985 BED: DIS: 07/19/2022 SPEC #: [id number] RECD: 07/22/22 07:19 STATUS: IFRAH REQ #: [id number] ROBERT: 07/19/22 00:[address]: Jaylene Moyer DEPT: SURGICAL PATHOLOGY RECD BY: Summer Yost ENTERED: 07/22/22 07:19 SP TYPE: ENDOM BX/C BARRY DR: Dr. 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 AM:mary 07/23/2022 MICROSCOPIC DESCRIPTION Slides are reviewed. GROSS DESCRIPTION Received in fixative is one container labeled with the patient's name and designated endometrial biopsy. The specimen consists of multiple irregular fragments of light girard soft tissue that in aggregate measure 2.7 x 1.5 x 0.2 cm. The specimen is totally submitted in one cassette. / AM:mary 07/22/2022 TC:5 CPT: 43741
== END | disposition home or self-care (01) ==
LOC: LABSPEC 15:42
PROVIDERS: PCP Family Medicine; Visit Provider Student in an Organized Health Care Education/Training Program
DX: N93.9 Abnormal uterine and vaginal bleeding, unspecified (principal)
CPT/HCPCS: 88305

== ENCOUNTER → 2022-09-23 | Outpatient (CLI) | payer OTHER, SELFPAY ==
[2022-09-23 13:22] LABS: Absolute Lymphocyte Count 2.52 X10^3/uL (0.83-4.51); Absolute Neutrophil Count 4.5 X10^3/uL (2.0-7.7); Basophil# 0.05 X10^3/uL; Basophil% 0.7 % (0-1); Eosinophil# 0.22 X10^3/uL; Eosinophils% 2.9 % (0-5); Hematocrit 39.8 % (37-47); Hemoglobin 13.6 g/dL (12.0-15.0); Lymphocyte # 2.52 X10^3/ul (0.83-4.51); Lymphocyte % 32.8 % (19-41); Mean Corp Hgb Conc 34.2 g/dL (32-36); Mean Corpuscular Hgb 30.7 pg (27.0-32.0); Mean Corpuscular Volume 89.8 fL (81-99); Mean Platelet Vol. 11.1 fl (6.2-12.0); Monocyte# 0.43 X10^3/uL; Monocyte% 5.6 % (0-10); NRBC Flagged by Analyzer 0 % (0-5); Neutrophil # 4.46 X10^3/uL (2.7-7.7); Neutrophil % 57.9 % (47-70); Platelet Count 181 K/mm3 (150-450); RBC Distribution Width CV 12.2 % (11.6-14.6); RBC Distribution Width SD 40.3 fl (35.1-43.9); Red Blood Count 4.43 M/mm3 (4.2-5.4); White Blood Count 7.7 K/mm3 (4.4-11.0)
[2022-09-23 14:59] LABS: T4 Free Direct 0.78 ng/dL (0.76-1.46); Thyroid Stim Hormone (TSH) 1.25 uIU/mL (0.358-3.74)
== END | disposition home or self-care (01) ==
LOC: WOBLAB 13:12
PROVIDERS: PCP Family Medicine; Visit Provider Family Medicine
DX: R53.83 Other fatigue (principal)
CPT/HCPCS: 36415; 84439; 84443; 85025

== ENCOUNTER → 2022-10-24 | Outpatient (CLI) | payer OTHER, SELFPAY ==
--- NOTE | 2022-10-24 11:16 | MRI_ITS ---
STUDY: MRI LEFT ELBOW REASON FOR EXAM: Female, 36 years old. Collateral epicondylitis left elbow. TECHNIQUE: Standardized fat and water weighted pulse sequences were obtained in all 3 orthogonal planes. COMPARISON: Left elbow x-rays dated April 10, 2022. FINDINGS: Small elbow joint effusion (coronal series 4 image 9). Normal radial collateral ligamentous complex. Common extensor tendinosis with an intrasubstance longitudinal partial tear at its origin (coronal series 4 images 6-9). Normal ulnotrochlear articulation. Normal ulnar collateral ligamentous complex. Normal common flexor tendon. The cubital tunnel is normal, with a normal ulnar nerve. Normal biceps tendon and distal insertion. Normal lacertus fibrosis. Normal brachialis musculotendinous insertion. Normal triceps tendon and teno-osseous insertion. Normal olecranon process. The visualized distal humerus, proximal radius, and ulna are normal. The visualized muscles of the distal arm and proximal forearm are normal. Normal soft tissues. MRI/Upper Ext Joint Only(Routine) IMPRESSION: Common extensor tendinosis with an intrasubstance longitudinal partial tear at its origin. Small joint effusion. No other abnormality. Electronically Signed: Eloy Orr MD at 14:03 EDT ,
== END | disposition home or self-care (01) ==
LOC: MRI 10:56
PROVIDERS: PCP Family Medicine; Referring Provider Orthopaedic Surgery; Visit Provider Orthopaedic Surgery
DX: M77.10 Lateral epicondylitis, unspecified elbow (principal)
CPT/HCPCS: 73221

== ENCOUNTER 2022-11-25 16:00 | Outpatient (RCR) | payer OTHER, SELFPAY ==
--- NOTE | 2022-07-18 12:35 | HP.OTEVAL ---
Patient's Visit Information KALA ONEILL is a 36 year old F, referred to Occupational Therapy by Dr. Jose Juan Jung DO, with a diagnosis of left lateral epicondylitis. Date of Evaluation: 07/18/22 Occupational Therapist: Sulma Cummins, OTR/[place], CHT - Subjective This 36 year old female was seen for OT eval with dx of left Lateral epicondylitis. PT states symptoms started in 2021. pt states she felt sharp pains around her elbow. pt states she had cortisone shot in Mar. that helped- than two- three weeks ago symptoms returned. symptoms were pain- sharp shooting pain and elbow stiffness. pt had another cortisone shot on July 10, 2021. Pt states no change in symptoms from this cortisone shot. pt states she has an elbow brace- and a tennis elbow brace- pt states she feels the tennis elbow brace made it worse. 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 pt states she also does Cross fit 2-3x week- states she has stopped doing some the the workouts due to pain. Pt states she would like to return to her PLOF and cross Fit. - Pain left elbow 2 Pain Intensity Range: 2 - ROM Elbow: right 0/150 left 0/145 Forearm: right/left WFL - Strength Forearm: left pronation resistance pain at lat. 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 Pt will demo understanding of using supportive bracing 80% of workday/ADLS to decrease stress on tendon origin to allow healing and decrease pain by end of 2nd session. pt will demo understanding of lateral epicondylitis precautions to avoid stress on tendon origin by end of 3rd session. - Rehabilitation General Assessment: pt demo with positive symptoms of left lateral epicondylitis. 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 Pt would benefit from skilled OT services 1-2x week for 4-8 weeks. Today therapist ed. pt on dx, and treatment plan- therapist also ed. pt on use of wrist brace and counter force brace. Pt demo understanding and agree to POC. Rehabilitation Potential: Good - Anticipated Interventions Strengthening, Triggerpoint Release, Orthoses, Joint Protection/Energy Conservation, Ergonomic Education, Education re assistive Equipment, Education re Diagnosis, Home Program - Visit Plan Frequency: 1-2x /Week Duration: 4 Weeks TEXT: Thank you for the opportunity to evaluate your patient. For Medicare and Medicare HMO plans, please review the plan of care and approve it. It will need to be FAXED BACK to us at [phone] for Medicare purposes. Please let me know if there are questions or concerns regarding this plan of care. Physician Signature: Date:
--- NOTE | 2022-11-11 12:01 | HP.PTEVAL ---
Patient's Visit Information Visit Information Visit Information: KALA ONEILL is a 36 year old F referred to Physical Therapy by Dr. Jose Juan Jung DO with a diagnosis of L Lateral Epicondylitis. Date of Evaluation: 11/11/22 Physical Therapist: FERNANDO Zhao Visit Plan Frequency: 2x /Week Duration: 6 Weeks Plan: 2X/ week for 6 weeks for L wrist stretching, L eccentric strengthening, US, cross friction massage, with HEP to do daily HEP (long arm wrist flex and ext stretching) Subjective Subjective: This has been going on since Feb. 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 She is R handed. She has had 3 cortisone injections and they do not work. She had a long tear on MRI and said to do extensive PT on it. The surgery is not a good percentage affective and no guarantee that it would not come back. She has not splint. Lifting with her palm up aggravates it or picking up a coffee cup. Heat/ice helps a little. It is worse in the morning and as the day goes on it gets better. She has no neck pain other than tension. She has some N&T at times. She has not been doing any exercises at home. Last cortisone shot was in July/August. She did OT and they did scrapping, eccentric exercises, wax dip and US. wanted her to do the US for several visits. Pain L elbow: Pain Intensity (Out of 10): 2 Pain Intensity Range: 8 Objective Objective: R handed: R 70# and L 20# B elbow AROM flex/ext and pronation and supination are WFL MMT: R bicep 7.7 and L bicep 6.6 R tricep 10.1 and L tricep 9.6 R wrist ext 5/5 and L 3+/5 R wrist flex 5/5 and L 4/5 Palpation: L tender over the muscle belly on the L wrist extensors (near epicondylitis) Balance/Special Test Scores Quick DASH Score: 36.3625 Goals Goal 1:: I HEP Goal Time Frame: 4-6 Weeks Goal 2:: Increase wrist ext strength on the L (at time of the eval L 3+/5) Goal Time Frame: 4-6 Weeks Goal 3:: Increase appointment setter strength (at time of the eval 20# on the L) Goal Time Frame: 4-6 Weeks Goal 4:: Be able to lift everyday items without flaring up L elbow Goal Time Frame: 4-6 Weeks Rehabilitation Potential Rehabilitation Potential: Good Anticipated Interventions Patient/Client Instruction: Educate patient on: Condition and Plan of Care For the Purpose of:: To decrease pain, To increase ROM, To improve nutrient delivery to tissue, To improve muscle performance and motor function, To improve ability to perform ADL's, To increase tolerance to activity/condition/position, To improve health of tissue, To decrease soft tissue restriction and To increase flexibility/ROM Therapeutic Exercise to Include: Strength training, Flexibilty training, Passive ROM, Active ROM and Scapular Strength/Stabilization For the Purpose of:: To decrease pain, To increase ROM, To improve nutrient delivery to tissue, To improve muscle performance and motor function, To improve ability to perform ADL's, To increase tolerance to activity/condition/position, To improve performance and independence with ADL's, To decrease level of supervision to perform tasks, To improve ability of physical actions for home/community/work/leisure, To improve health of tissue, To decrease soft tissue restriction and To increase flexibility/ROM Manual Therapy Techniques to Include: Mobilization, Passive ROM and Soft tissue mobilization For the Purpose of:: To decrease pain, To increase ROM, To improve nutrient delivery to tissue, To increase oxygenation perfusion, To improve muscle performance and motor function, To improve ability to perform ADL's, To improve performance and independence with ADL's, To improve health of tissue, To decrease soft tissue restriction and To increase flexibility/ROM Cryotherapy (ice pack, ice massage): Yes Ultrasound (thermal/non thermal): Yes For the Purpose of:: To decrease pain, To increase ROM, To improve nutrient delivery to tissue, To improve muscle performance and motor function, To improve ability to perform ADL's, To increase tolerance to activity/condition/position, To improve performance and independence with ADL's, To improve health of tissue, To decrease soft tissue restriction and To increase flexibility/ROM Text: Thank you for the opportunity to evaluate your patient. For Medicare and Medicare HMO plans, please review the plan of care and approve it. It will need to be FAXED BACK to us at [phone] for Medicare purposes. For Medicare only, by signing this I certify the plan of care. Please let me know if there are questions or concerns regarding this plan of care. Physician Signature: Date:
== END 2022-11-25 19:00 | disposition home or self-care (01) ==
LOC: PT 16:00
PROVIDERS: PCP Family Medicine; Referring Provider Orthopaedic Surgery; Visit Provider Orthopaedic Surgery
DX: M77.12 Lateral epicondylitis, left elbow (principal)
CPT/HCPCS: 97035; 97110; 97140; 97161; 97166; 97530

== ENCOUNTER → 2022-12-05 | Outpatient (CLI) | payer OTHER, SELFPAY ==
[2022-12-05 10:56] LABS: Progesterone Level 12.04 ng/mL (See Comment)
== END | disposition home or self-care (01) ==
LOC: LAB 08:44
PROVIDERS: PCP Family Medicine; Visit Provider Obstetrics & Gynecology
DX: E28.9 Ovarian dysfunction, unspecified (principal)
CPT/HCPCS: 36415; 84144

== ENCOUNTER → 2022-12-07 | Outpatient (CLI) | payer OTHER, SELFPAY ==
[2022-12-09 10:27] LABS: Progesterone Level 8.05 ng/mL (See Comment)
== END | disposition home or self-care (01) ==
LOC: LAB 10:55
PROVIDERS: PCP Family Medicine; Referring Provider Obstetrics & Gynecology; Visit Provider Obstetrics & Gynecology
DX: E28.9 Ovarian dysfunction, unspecified (principal)
CPT/HCPCS: 36415; 84144

== ENCOUNTER → 2022-12-09 | Outpatient (CLI) | payer OTHER, SELFPAY ==
[2022-12-09 16:57] LABS: Progesterone Level 2.38 ng/mL (See Comment)
== END | disposition home or self-care (01) ==
LOC: LAB 14:55
PROVIDERS: PCP Family Medicine; Visit Provider Obstetrics & Gynecology
DX: E28.9 Ovarian dysfunction, unspecified (principal)
CPT/HCPCS: 36415; 84144

== ENCOUNTER → 2023-01-02 | Outpatient (CLI) | payer OTHER, SELFPAY ==
[2023-01-02 08:31] LABS: Progesterone Level 16.69 ng/mL (See Comment)
[2023-01-02 09:26] LABS: Estradiol 121.4 pg/mL
[2023-01-02 09:29] LABS: Hemoglobin A1c 4.7 % (3.8-5.6)
[2023-01-07 12:09] LABS: Sex Hormone-binding Globulin 41.7 nmol/L (24.6-122.0); Testosterone, % Free 1.47 % (0.50-2.80); Testosterone, Free 0.51 ng/dL (0.10-0.85); Testosterone, Total 35 ng/dL (8-60)
== END | disposition home or self-care (01) ==
PROVIDERS: PCP Family Medicine; Referring Provider Obstetrics & Gynecology; Visit Provider Obstetrics & Gynecology
DX: R79.89 Other specified abnormal findings of blood chemistry (principal); E28.9 Ovarian dysfunction, unspecified
CPT/HCPCS: 36415; 82533; 82627; 82670; 83036; 84144; 84270; 84402; 84403; 82626

== ENCOUNTER → 2023-01-08 | Outpatient (CLI) | payer OTHER, SELFPAY ==
[2023-01-08 07:47] LABS: Glucose 75GTT - Fasting 107 mg/dL (70-99)
[2023-01-08 08:22] LABS: Insulin 75GTT - Fasting 28.4 mU/L (2.6-37.6)
[2023-01-08 08:44] LABS: Glucose 75GTT - 60 minutes 130 mg/dL (100-160)
[2023-01-08 08:44] LABS: Glucose 75GTT - 30 minutes 129 mg/dL (100-160)
[2023-01-08 08:48] LABS: Insulin 75GTT - 60 min 159.2 mU/L (Not Estab)
[2023-01-08 08:48] LABS: Insulin 75GTT - 30 MIN 95.1 mU/L (Not Estab.)
[2023-01-08 09:23] LABS: Glucose 129 mg/dL (74-106)
[2023-01-08 09:26] LABS: Insulin 179.6 mU/L (2.6-37.6)
[2023-01-08 10:02] LABS: Glucose 75GTT - 120 minutes 110 mg/dL (70-140)
[2023-01-08 10:06] LABS: Insulin 75GTT - 120 min 110.4 mU/L (Not Estab.)
== END | disposition home or self-care (01) ==
LOC: LAB 06:54
PROVIDERS: PCP Family Medicine; Referring Provider Obstetrics & Gynecology; Visit Provider Obstetrics & Gynecology
DX: R73.09 Other abnormal glucose (principal); Z13.1 Encounter for screening for diabetes mellitus
CPT/HCPCS: 36415; 82947; 82951; 82952; 83525

== ENCOUNTER → 2023-01-15 | Outpatient (CLI) | payer OTHER, SELFPAY | END | disposition home or self-care (01) | LOC: SL 13:27 | PROVIDERS: PCP Family Medicine; Visit Provider Nurse Practitioner Acute Care | DX: G47.33 Obstructive sleep apnea (adult) (pediatric) (principal); Z99.89 Dependence on other enabling machines and devices | CPT/HCPCS: 98960; G0463 ==

== ENCOUNTER → 2023-01-24 | Outpatient (CLI) | payer OTHER, SELFPAY | END | disposition home or self-care (01) | PROVIDERS: PCP Family Medicine; Referring Provider Obstetrics & Gynecology; Visit Provider Obstetrics & Gynecology | DX: E24.9 Cushing's syndrome, unspecified (principal) ==

== ENCOUNTER → 2023-04-12 | Outpatient (CLI) | payer OTHER, SELFPAY ==
--- OUTSIDE RECORDS SUMMARY | 2023-04-12 09:04 | XMS RPT_ITS | CCD ---
Author Name Unknown Address [address] [place] [address] [address] [place] [id number] Organization [facility] Progress note 10-17-2020 Note Date & Type Note Facility 10-17-2020 Note HNO ID: [id number] Author: Miguel Cantor Service: ? Author Type: ? Type: Progress Notes Filed: 10/17/2020 1:38 PM Note Text: POPULATION HEALTH NAVIGATION OUTREACH Action/FYI Patient receives care outside of [facility] Contact made with patient or family member? YES Pt identified by name and : YES Outreach Outcome/Action Spoke to patient or caregiver: Patient declined Reason for Outreach Care Gap or Scheduling/Wellness visits Payer: No coverage found. Care Gap Reviewed:: Annual Wellness visit-Women's health Reminder: Reminder note to check Health Maintenance for items below Health Maintenance items due: DEPRESSION SCREENING Never done COVID-19 VACCINE(1) Never done PAP TESTING due on 08/31/2019 HPV TESTING due on 08/31/2019 Advanced Directives Completed: Referrals: Message Sent to Practice: NO Navigation Signature: Miguel Cantor October 17, 2020 1:37 PM [facility] Clinical Note 10-17-2020 Note Date & Type Note Facility 10-17-2020 Note Patient Outreach (NE TNAV) KALA ONEILL ([id number]) 1985 F Date Time Provider Department 10/17/20 MIGUEL DELAROSA (PSS) [facility] During your visit today, we recorded the following information about you: Miguel Delarosa Pss 10/17/2020 1:38 PM Signed POPULATION HEALTH NAVIGATION OUTREACH Action/FYI Patient receives care outside of [facility] Contact made with patient or family member? YES Pt identified by name and : YES Outreach Outcome/Action Spoke to patient or caregiver: Patient declined Reason for Outreach Care Gap or Scheduling/Wellness visits Payer: No coverage found. Care Gap Reviewed:: Annual Wellness visit-Women's health Reminder: Reminder note to check Health Maintenance for items below Health Maintenance items due: DEPRESSION SCREENING Never done COVID-19 VACCINE(1) Never done PAP TESTING due on 08/31/2019 HPV TESTING due on 08/31/2019 Advanced Directives Completed: Referrals: Message Sent to Practice: NO Navigation Signature: Miguel Amarjit Pss October 17, 2020 1:37 PM Allergies As of Date: 10/17/2020 Noted Allergy Reaction CELEXA (CITALOPRAM) 01/01/2013 4 - Hives INFLUENZA VIRUS VACCINE QV 2014-2*03/07/2015 4 - Hives Comments: Tolerated past flu vaccines PENICILLINS 12/25/2004 2 - Rash TETANUS TOXOID 03/10/2013 4 - Hives Comments: lip swelling Date Reviewed: 04/13/2015 Reviewed by: Reshma Omalley Ma - Fully Assessed Reason for Visit: Population Health Navigation Outreach [3910] Prescriptions as of 10/17/2020 - methylPREDNISolone (MEDROL, ELISABET,) 4 mg Dose-Pack Follow package directions - meloxicam (MOBIC) 15 mg tablet Take 1 tablet by mouth once daily. Take with food. - escitalopram oxalate (LEXAPRO) 20 mg tablet Take 1 tablet by mouth once daily. - tiZANidine (ZANAFLEX) 4 mg tablet Take 1 tablet by mouth every 8 hours as needed (muscle spasms). - Etonogestrel-Ethinyl Estradiol (NUVARING) 0.12-0.015 mg/24 hr vaginal ring Use 1 Each vaginally as directed. Insert vaginally and leave in place for 3 consecutive weeks, then remove for 1 week. - LORazepam (ATIVAN) 0.5 mg tab Take 1 tablet by mouth twice daily as needed (anxiety). - Omeprazole Magnesium (PRILOSEC OTC) 20 mg tablet Take 1 tablet by mouth daily before breakfast. 1/2 hr before meal. Problem List As Of Date 10/17/2020 Noted Resolved Anxiety [F41.9] 08/08/2009 Obesity [E66.9] 08/08/2009 ADHD (attention deficit hyperactivity disorder)*03/26/2012 Therapeutic drug monitoring [Z51.81] 07/10/2012 Family history of ovarian cancer [Z80.41] 02/19/2013 Encounter Status:Closed by MIGUEL MEDEL on 10/17/20 [facility] Summary Purpose Family History No Family History Records Found Advance Directives No Advanced Directives Records Found Additional Source Comments INFORMATION SOURCE (unrecogn ized section and content) FOR RECORDS PERTAINING TO PATIENTS WHO ARE OR HAVE BEEN ENROLLED IN A CHEMICAL DEPENDENCY/SUBSTANCEABUSE PROGRAM, SOME INFORMATION MAY BE OMITTED. This clinical summary was aggregated from multiple sources. Caution should be exercised in using it in the provision of clinical care. This summary normalizes information from multiple sources, and as a consequence, information in this document may materially change the coding, format and clinical context of patient data. In addition, data may be omitted in some cases. CLINICAL DECISIONS SHOULD BE BASED ON THE PRIMARY CLINICAL RECORDS. [employer] [facility]. provides no warranty or guarantee of the accuracy or completeness of information in this document.
[2023-04-12 09:29] LABS: Absolute Lymphocyte Count 2.31 X10^3/uL (0.83-4.51); Basophil# 0.05 X10^3/uL; Basophil% 0.7 % (0-1); Eosinophil# 0.37 X10^3/uL; Eosinophils% 5.2 % (0-5); Hematocrit 38.8 % (37-47); Hemoglobin 13.3 g/dL (12.0-15.0); Lymphocyte # 2.31 X10^3/ul (0.83-4.51); Lymphocyte % 32.4 % (19-41); Mean Corp Hgb Conc 34.3 g/dL (32-36); Mean Corpuscular Hgb 29.6 pg (27.0-32.0); Mean Corpuscular Volume 86.4 fL (81-99); Mean Platelet Vol. 10.8 fl (6.2-12.0); Monocyte# 0.38 X10^3/uL; Monocyte% 5.3 % (0-10); NRBC Flagged by Analyzer 0 % (0-5); Neutrophil # 4.01 X10^3/uL (2.7-7.7); Neutrophil % 56.1 % (47-70); Platelet Count 224 K/mm3 (150-450); RBC Distribution Width CV 12.2 % (11.6-14.6); RBC Distribution Width SD 38.5 fl (35.1-43.9); Red Blood Count 4.49 M/mm3 (4.2-5.4); White Blood Count 7.1 K/mm3 (4.4-11.0)
[2023-04-12 10:20] LABS: ALB/GLOB Ratio 1.1 RATIO (0.9-2.4); AST(SGOT) 24 U/L (15-37); Alanine Aminotransfer ALT/SGPT 44 U/L (13-56); Albumin, Serum 3.9 g/dL (3.2-5.0); Alkaline Phosphatase 48 U/L (45-117); Anion Gap 7 (5-15); BUN 14 mg/dL (7-18); BUN/Creat Ratio 19.7 RATIO (10-20); Chloride 107 mmol/L (98-107); Cholesterol 194 mg/dL (200); Creatinine, Serum 0.71 mg/dL (0.55-1.02); EST Glomerular Filtration Rate 97 mL/min (>60); Est Glom Filt Rate - Afr Amer 117 mL/min (>60); Globulin 3.5 g/dL (2.2-4.2); Glucose 94 mg/dL (74-106); High Density Lipoprotein 48 mg/dL; Potassium 3.9 mmol/L (3.5-5.1); Protein, Total 7.4 g/dL (6.4-8.2); Sodium Level 138 mmol/L (136-145); Triglycerides 135 mg/dL; Very Low Density Lipoprotein 27 mg/dL (5-40)
[2023-04-14 10:15] LABS: Insulin 21.7 mU/L (2.6-37.6)
== END | disposition home or self-care (01) ==
LOC: LAB 09:01
PROVIDERS: PCP Family Medicine; Referring Provider Obstetrics & Gynecology; Visit Provider Obstetrics & Gynecology
DX: E74.39 Other disorders of intestinal carbohydrate absorption (principal); R73.03 Prediabetes; Z13.220 Encounter for screening for lipoid disorders; Z13.228 Encounter for screening for other metabolic disorders
CPT/HCPCS: 36415; 80053; 80061; 83525; 85025

== ENCOUNTER → 2023-05-22 | Outpatient (CLI) | payer OTHER, SELFPAY | END | disposition home or self-care (01) | PROVIDERS: PCP Family Medicine; Referring Provider Obstetrics & Gynecology; Visit Provider Obstetrics & Gynecology | DX: E66.9 Obesity, unspecified (principal); Z68.37 Body mass index [BMI] 37.0-37.9, adult | CPT/HCPCS: 76499 ==

== ENCOUNTER → 2023-05-22 | Outpatient (CLI) | payer OTHER, SELFPAY ==
--- NOTE | 2023-05-22 09:05 | US_ITS ---
STUDY: ULTRASOUND BREAST - LEFT REASON FOR EXAM: Female, 37 years old. Lateral left breast pain for 3 weeks. TECHNIQUE: Axial and longitudinal images of the LEFT breast were performed with a high resolution ultrasound transducer. # OF IMAGES: 26 COMPARISON: Comparison is made with prior mammogram done earlier today. FINDINGS: LEFT Breast: The lateral aspect of the left breast was examined with ultrasound. There is evidence of a fibroglandular tissue. No sonographic abnormality is seen. US/Breast Limited Unilateral IMPRESSION: No sonographic abnormality is seen. ASSESSMENT CATEGORY: BIRADS Category 1: Negative. A letter regarding these results will be sent to the patient by the facility within 30 days. Electronically Signed: Obdulio Jose MD at 11:13 EST ,
--- NOTE | 2023-05-22 09:05 | BI_ITS ---
MAMMOGRAPHY - BILATERAL DIAGNOSTIC REASON FOR EXAM: Female, 37 years old. Painful lump in the lateral aspect of the left breast. PERTINENT HISTORY: Non-contributory. TECHNIQUE: Digital bilateral breast james (3D mammographic acquisition) in the CC and MLO projections. 2-D mediolateral oblique (MLO) and craniocaudad (CC) views of both breasts were obtained. CAD: Full Field Digital Mammography with Computer Added Detection was performed. COMPARISON: Comparison is made with prior study July 18, 2022 and May 18, 2020 FINDINGS: Breast Composition: There are scattered areas of fibroglandular density. There are no dominant masses or suspicious calcifications. Stable benign-appearing bilateral axillary lymph nodes. No other significant abnormalities are identified. There has been no significant change since the prior study. BI/DIAG MAMM W/CAD, BILAT IMPRESSION: Stable bilateral diagnostic mammogram. With the patient''s history of a palpable lump in the lateral aspect of the left breast, correlation with ultrasound is recommended. ASSESSMENT CATEGORY: BIRADS Category 0: Incomplete. Need additional imaging evaluation. A letter regarding these results will be sent to the patient by the facility within 30 days. Approximately 10% of breast cancers are not detected by mammography. A normal mammogram should not delay biopsy of a clinically suspicious abnormality. Electronically Signed: Obdulio Jose MD at 10:41 EST ,
== END | disposition home or self-care (01) ==
PROVIDERS: PCP Family Medicine; Referring Provider Obstetrics & Gynecology; Visit Provider Obstetrics & Gynecology
DX: N63.21 Unspecified lump in the left breast, upper outer quadrant (principal)
CPT/HCPCS: 76642; 77062; 77066; G0279

== ENCOUNTER 2023-09-18 12:03 | Emergency (ER) | payer OTHER, SELFPAY ==
[2023-09-18 12:04] VITALS: BP 126/85; PULSE 84; RESP 14; TEMP 35.9; O2SAT 97; BMI 32.9
--- NOTE | 2023-09-18 13:05 | EDS_ITS ---
HPI <NAYANA Nava - Last Filed: 09/18/23 13:09> History of Present Illness Chief Complaint: Laceration Narrative Narrative: Patient is a 37-year-old female with no significant medical history who presents to the emergency department with a small laceration the distal tip of the right index finger. Patient states that she was cleaning out a door when she struck something sharp. Tetanus vaccination was 4 years ago. Patient states that the bleeding would not stop however she did put a pressure dressing on it and stop now. Here for evaluation PFSH <NAYANA Nava - Last Filed: 09/18/23 13:09> [facility] Medical History Acute bronchitis, unspecified Anxiety Anxiety and depression Cardiology follow-up encounter delivery delivered Depression Encounter for screening laboratory testing for COVID-19 virus Former smoker Gastric reflux GERD (gastroesophageal reflux disease) History of echocardiogram Hx of pilonidal cyst Hypersomnia Hypothyroid Hypothyroidism Major depressive disorder OLE on CPAP Shortness of breath on exertion Type 2 diabetes mellitus Wears contact lenses Wears glasses Home Medications ?Medication ?Instructions ?Recorded ?Last Taken ?Type omeprazole 20 mg capsule,delayed 20 mg PO DAILY 01/22/22 Unknown History release lorazepam 0.5 mg tablet 0.5 mg PO DAILY PRN anxiety #30 02/26/23 Unknown Rx tabs semaglutide 1 mg/dose (2 mg/1.5 1 mg subcut QWEEK 03/12/23 Unknown History mL) subcutaneous pen injector bupropion HCl 150 mg 24 hr tablet, 150 mg PO QAM #90 tabs 05/30/23 Unknown Rx extended release (Wellbutrin XL) escitalopram oxalate 10 mg tablet See Rx Instructions .Route 05/30/23 Unknown Rx .COMPLEX #90 tabs gabapentin 300 mg capsule 300 mg PO QHS #90 caps 05/30/23 Unknown Rx Allergy/AdvReac Type Severity Reaction Status Date / Time citalopram hydrobromide Allergy Hives Verified 09/18/23 12:07 (From Celexa) Penicillins (PCN) Allergy Hives Verified 09/18/23 12:07 tetanus immune globulin Allergy Hives Verified 09/18/23 12:07 liraglutide (From Victoza) AdvReac Nausea/Vom/ Verified 09/18/23 12:07 Diarrhea morphine AdvReac Itching Verified 09/18/23 12:07 Family History Mother Hypertension High cholesterol Sister Thyroid disorder cancer Cancer Surgical History H/O repair of right rotator cuff History of appendectomy History of tonsillectomy Hx of cholecystectomy Previous section Social History household members: spouse and children housing: house current occupational status: employed 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 pets and animals: Yes pets and animals: dog(s) Smoking Status: Former smoker alcohol intake: never substance use type: does not use what type of physical activity do you participate in: walking and weight training frequency: 3-4 times per week do you feel safe at home: Yes ROS <NAYANA Nava - Last Filed: 09/18/23 13:09> ROS ED ROS Narrative Constitutional: Negative for fever, chills, weight loss, weakness Eyes: Negative for vision loss, vision change, double vision ENT: Negative for any sore throat, ear pain, congestion Cardiovascular: Negative for any chest pain, tightness, palpitations Respiratory: Negative for any cough, sputum production, hemoptysis, dyspnea, dyspnea on exertion, orthopnea Gastrointestinal: Negative for any abdominal pain, nausea, vomiting, diarrhea, constipation, blood in stool, blood in vomit : Negative for any urinary frequency, dysuria, retention, blood in urine Muscle skeletal: Negative for any neck pain, back pain Neurological: Negative for any headache, syncope, dizziness Skin: Negative for any rashes, itching, abrasions. Positive for laceration to distal tip of the right index finger. Psychiatric: Negative for any depression, anxiety, stress, suicidal ideation, homicidal ideation Hematologic: Negative for any excessive bruising, easy bleeding EXAM <NAYANA Nava - Last Filed: 09/18/23 13:09> Physical Exam Narrative Exam Narrative: Vital signs reviewed. Extremities: No peripheral edema, no signs of gross trauma or deformity. Active full range of motion of all extremities. Patient does have a vertical laceration to the distal tip of the right index finger, this is superficial, there is no bleeding. When spreading apart, It is not full-thickness. Nailbed is intact. full range of motion. Neuro: Cranial nerves II through XII intact, no focal neurological deficits. Skin: Clean dry and intact with no rash, purpura, petechiae, vesicles or pustules. Backs/flank: No CVA tenderness, no midline spinal tenderness, no deformity. Psych: Normal mood and affect. No SI, HI or acute psychosis. Const Vital Signs: 09/18/23 12:04 Temperature 96.7 F L Temperature Source Temporal Pulse Rate 84 Respiratory Rate 14 Blood Pressure 126/85 H Blood Pressure Mean 98 Pulse Ox 97 Oxygen Delivery Method Room Air <Dr. Paolo Lopez DO - Last Filed: 09/18/23 15:25> Physical Exam Const Vital Signs: 09/18/23 12:04 Temperature 96.7 F L Temperature Source Temporal Pulse Rate 84 Respiratory Rate 14 Blood Pressure 126/85 H Blood Pressure Mean 98 Pulse Ox 97 Oxygen Delivery Method Room Air MDM <NAYANA Nava - Last Filed: 09/18/23 13:09> [facility] Treatment and Re-Evaluation Narrative: Differential diagnosis includes however is not limited to: Simple laceration, complex laceration, foreign body Patient appears to be in no obvious respiratory distress vital signs are stable, patient is nontoxic-appearing. Presenting to the emergency department for a simple laceration to the distal tip of the right index finger. This is not full-thickness, I was able to use glue after cleansing the area. The glue did well for the wound. Sutures are not indicated at this time. Patient placed in a simple dressing. Tetanus vaccination up-to-date. No evidence of any infection. All questions answered stable for discharge. <Dr. Paolo Lopez, - Last Filed: 09/18/23 15:25> [facility] Treatment and Re-Evaluation Narrative: Differential diagnosis includes however is not limited to: Simple laceration, complex laceration, foreign body Patient appears to be in no obvious respiratory distress vital signs are stable, patient is nontoxic-appearing. Presenting to the emergency department for a simple laceration to the distal tip of the right index finger. This is not full-thickness, I was able to use glue after cleansing the area. The glue did well for the wound. Sutures are not indicated at this time. Patient placed in a simple dressing. Tetanus vaccination up-to-date. No evidence of any infection. All questions answered stable for discharge. This patient was seen with a PA/CHANNEL PROCESS PLANT OPERATOR Individually assessed they patient including history and physical. I have reviewed everything on the chart that is available and agree with the documentation provided by the PA/CHANNEL PROCESS PLANT OPERATOR including discussion about the assessment, treatment plan, discussion, and return precautions. Patient with superficial laceration to distal right index finger. This was cleaned and glued by the MD. Wound care, cautions were discussed. Discharge Plan Triage Chief Complaint: Laceration ED Midlevel Provider: Sarmad Velazquez ED Provider: Paolo Lopez Dx/Rx/DC Orders Clinical Impression: Finger laceration Instructions: ED Laceration Superficial No Stitch Prescriptions: No Action omeprazole 20 mg capsule,delayed release(DR/EC) 20 mg PO DAILY Patient Comments: TAKE 1 CAPSULE BY MOUTH ONCE DAILY semaglutide 1 mg/dose (2 mg/1.5 mL) pen injector 1 mg subcut QWEEK bupropion HCl [Wellbutrin XL] 150 mg tablet extended release 24 hr 150 mg PO QAM Qty: 90 2RF escitalopram oxalate 10 mg tablet See Rx Instructions .ROUTE .COMPLEX Qty: 90 1RF Dose Instruction: TAKE 1 TABLET BY MOUTH ONCE DAILY Rx Instructions: TAKE 1 TABLET BY MOUTH ONCE DAILY gabapentin 300 mg capsule 300 mg PO QHS Qty: 90 1RF lorazepam 0.5 mg tablet 0.5 mg PO DAILY PRN (Reason: anxiety) Qty: 30 1RF Primary Care Provider: Librado Ybarra Referrals: Librado Ybarra DO [Primary Care Provider] - Activity Restrictions/Additional Instructions: Please follow-up outpatient. Print Language: Namibian Disposition Disposition: Home, Self Care Discharge Date/Time: 09/18/23 13:26
== END 2023-09-18 13:26 | disposition home or self-care (01) ==
PROVIDERS: Emergency Provider Student in an Organized Health Care Education/Training Program; PCP Family Medicine; Visit Provider Student in an Organized Health Care Education/Training Program
DX: S61.210A Laceration without foreign body of right index finger without damage to nail, initial encounter (principal); G47.33 Obstructive sleep apnea (adult) (pediatric); F41.9 Anxiety disorder, unspecified; F32.A Depression, unspecified; K21.9 Gastro-esophageal reflux disease without esophagitis; Z79.899 Other long term (current) drug therapy; X58.XXXA Exposure to other specified factors, initial encounter; Z87.891 Personal history of nicotine dependence
CPT/HCPCS: 99282

== ENCOUNTER → 2023-12-17 | Outpatient (CLI) | payer OTHER, SELFPAY ==
--- NOTE | 2023-12-17 12:26 | US_ITS ---
STUDY: ULTRASOUND TRANSVAGINAL CLINICAL: Female, 37 years old. MENORRHAGIA TECHNIQUE: Transvaginal COMPARISON: None. FINDINGS: Normal uterine size measuring 9.8 x 5.0 cm in maximal craniocaudal dimension. 1.4 cm hypoechoic area within the right side of the body uterus suggestive of an intramural fibroid. Another 1 cm hypoechoic area in the posterior uterus suggestive of fibroid.. Normal endometrial thickness measuring 6 mm. There are no endometrial masses, and there is no fluid in the endometrial cavity. Normal uterine cervix. Normal right ovary, measuring 4.0 x 2.4 x 3.9 cm. There are multiple follicles without a dominant cyst. Normal left ovary, measuring 2.8 x 3.3 x 1.8 cm. There are multiple follicles without a dominant cyst. There is no free fluid in the pelvis. Polycystic ovary disease: No. US/Transvaginal Non- IMPRESSION: Small fibroids but overall normal size of the uterus. Electronically Signed: Osmar Vigil MD at 13:48 EDT ,
[2023-12-17 13:39] LABS: Absolute Neutrophil Count 6.1 X10^3/uL (2.0-7.7); Basophil# 0.04 X10^3/uL; Basophil% 0.4 % (0-1); Eosinophil# 0.37 X10^3/uL; Eosinophils% 4.1 % (0-5); Hemoglobin 13.9 g/dL (12.0-15.0); Lymphocyte % 22.3 % (19-41); Mean Corp Hgb Conc 33.9 g/dL (32-36); Mean Corpuscular Hgb 29.8 pg (27.0-32.0); Mean Corpuscular Volume 87.8 fL (81-99); Mean Platelet Vol. 11.1 fl (6.2-12.0); Monocyte% 4.5 % (0-10); NRBC Flagged by Analyzer 0 % (0-5); Neutrophil # 6.13 X10^3/uL (2.7-7.7); Neutrophil % 68.5 % (47-70); Platelet Count 220 K/mm3 (150-450); RBC Distribution Width CV 12.1 % (11.6-14.6); RBC Distribution Width SD 38.7 fl (35.1-43.9); Red Blood Count 4.67 M/mm3 (4.2-5.4)
[2023-12-17 14:14] LABS: T3 Total - Triiodothyronine 1.09 ng/mL (0.6-1.81); Vitamin B12 891 pg/mL (211-911)
[2023-12-17 14:17] LABS: AST(SGOT) 22 U/L (15-37); Alanine Aminotransfer ALT/SGPT 36 U/L (13-56); Alkaline Phosphatase 65 U/L (45-117); Anion Gap 10 (5-15); BUN 20 mg/dL (7-18); BUN/Creat Ratio 24.5 RATIO (10-20); Chloride 107 mmol/L (98-107); Creatinine, Serum 0.82 mg/dL (0.55-1.02); EST Glomerular Filtration Rate 82 mL/min (>60); Est Glom Filt Rate - Afr Amer 100 mL/min (>60); Ferritin 26 ng/mL (8-252); Free T3 2.9 pg/mL (2.18-3.98); Glucose 82 mg/dL (74-106); Iron 76 ug/dL (50-170); Iron Binding Capacity,Total 352 ug/dL (250-450); PERCENT IRON SATURATION 21.6 % (15.0-55.0); Potassium 3.7 mmol/L (3.5-5.1); Sodium Level 140 mmol/L (136-145); T4 Free Direct 0.83 ng/dL (0.76-1.46)
== END | disposition home or self-care (01) ==
LOC: US 12:25
PROVIDERS: PCP Family Medicine; Referring Provider Obstetrics & Gynecology; Visit Provider Obstetrics & Gynecology
DX: R73.03 Prediabetes (principal); R53.83 Other fatigue; N92.0 Excessive and frequent menstruation with regular cycle
CPT/HCPCS: 36415; 76830; 80053; 82607; 82728; 83540; 83550; 84439; 84443; 84480; 84481; 85025

== ENCOUNTER → 2023-12-19 | Outpatient (CLI) | payer OTHER, SELFPAY ==
[2023-12-19 09:31] LABS: Glucose 89 mg/dL (74-106)
[2023-12-20 11:09] LABS: Insulin Level 24.5 uIU/mL (2.6-24.9)
== END | disposition home or self-care (01) ==
LOC: LAB 08:24
PROVIDERS: PCP Family Medicine; Referring Provider Obstetrics & Gynecology; Visit Provider Obstetrics & Gynecology
DX: R73.03 Prediabetes (principal); R53.83 Other fatigue; N92.0 Excessive and frequent menstruation with regular cycle
CPT/HCPCS: 36415; 82947; 83525

== ENCOUNTER 2024-05-25 11:20 | Day surgery (SDC) | payer OTHER, SELFPAY ==
[2024-05-25] VITALS (8 sets, daily range): BP systolic 110–139; BP diastolic 63–78; PULSE 49–71; RESP 16–18; TEMP 36.4–36.8; O2SAT 98–100; BMI 34.0
[2024-05-25 11:47] LABS: Internal QC Validated? YES +Cl - CLEAR BKGD; Pregnancy, Urine Negative Negative
--- NOTE | 2024-05-25 11:57 | PCM.HP.STD ---
HPI - General General Date of Admission: 05/25/24 Date of Service: 05/25/24 Chief Complaint: family history of colon cancer and heartburn HPI Narrative KALA ONEILL, is a 38 F who presents to the office today for establishment with [facility]. Pt is here today to get scheduled for a colonoscopy. Her sister was diagnosed with colon cancer at age 50. She was able to have it removed without colon resection. Pt does have numerous GI symptoms including diarrhea, heartburn, nausea and abdominal pain. She feels most of these are related to her medications metformin and semaglutide. She has 2-3 episodes of diarrhea per day since starting metformin. She did have loose stools prior to this about once a week. She has nausea almost daily and is on PPI for heartburn and has been for years. She had a colonoscopy and EGD in 2013 but is unsure what kind of Symptoms prompted this. The colonoscopy and EGD was without abnormalities. She is s/p cholecystectomy [facility] Medical History Vapes nicotine containing substance Diabetes Low iron CPAP (continuous positive airway pressure) dependence Hypersomnia Major depressive disorder Encounter for screening laboratory testing for COVID-19 virus Acute bronchitis, unspecified Wears contact lenses Wears glasses Depression Anxiety Gastric reflux History of echocardiogram Cardiology follow-up encounter Hx of pilonidal cyst delivery delivered Home Medications ?Medication ?Instructions ?Recorded ?Last Taken ?Type omeprazole 20 mg capsule,delayed 20 mg PO DAILY 01/22/22 05/24/24 History release lorazepam 0.5 mg tablet 0.5 mg PO DAILY PRN anxiety #30 02/23/24 Unknown Rx tabs ferrous fumarate 324 mg (106 mg 324 mg PO DAILY 03/10/24 Unknown History iron) tablet metformin 1,000 mg tablet 1,000 mg PO QDAY 03/10/24 05/24/24 History Lactobacillus acidophilus 250 500 mmu cells PO DAILY 05/20/24 Unknown History million cell capsule (Probiotic Acidophilus) ashwagandha extract 62.5 mg 62.5 mg PO DAILY 05/20/24 05/24/24 History chewable tablet (Ashwagandha root leaf extract) bupropion HCl 150 mg 24 hr tablet, 150 mg PO QHS 05/20/24 05/24/24 History extended release (Wellbutrin XL) cholecalciferol (vitamin D3) 50 50 mcg PO DAILY 05/20/24 Unknown History mcg (2,000 unit) capsule (Vitamin D3) cyanocobalamin-liver extract tablet 1 tab PO DAILY 05/20/24 Unknown History escitalopram oxalate 10 mg tablet 10 mg PO QHS 05/20/24 05/24/24 History omega 3-sxi-jes-fish oil 1,200 mg 1 cap PO DAILY 05/20/24 Unknown History (144 mg-216 mg) capsule (Fish Oil) Allergy/AdvReac Type Severity Reaction Status Date / Time citalopram hydrobromide Allergy Hives Verified 05/25/24 11:46 (From Celexa) Penicillins (PCN) Allergy Hives Verified 05/25/24 11:46 tetanus immune globulin Allergy Hives Verified 05/25/24 11:46 liraglutide (From Victoza) AdvReac Nausea/Vom/ Verified 05/25/24 11:46 Diarrhea morphine AdvReac Itching Verified 05/25/24 11:46 Family History Mother Hypertension High cholesterol Sister Thyroid disorder cancer Cancer Surgical History History of hysteroscopy Previous section H/O repair of right rotator cuff History of appendectomy Hx of cholecystectomy History of tonsillectomy Social History household members: spouse and children housing: house current occupational status: employed 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 pets and animals: Yes pets and animals: dog(s) Smoking Status: Former smoker alcohol intake: never substance use type: does not use what type of physical activity do you participate in: walking and weight training frequency: 3-4 times per week do you feel safe at home: Yes ROS Constitutional Constitutional: Denies fatigue, fever(s), poor appetite, weight gain or weight loss Gastrointestinal Gastrointestinal: Denies belching, bloating, change in bowel habits, change in stool character, chewing difficulty, coffee ground emesis, constipation, cramping, diarrhea, dyspepsia, dysphagia, early satiety, excessive flatus, fecal incontinence, heartburn, hematemesis, hematochezia, hemorrhoids, loose stools, melena, nausea, odynophagia, rectal bleeding, tenesmus, vomiting or weight changes Vital Signs Vital Signs Vital Signs: 05/25/24 11:47 05/25/24 11:47 Temperature 97.8 F Temperature Source Temporal Pulse Rate 55 L Respiratory Rate 17 Respiratory Pattern Normal Blood Pressure 139/78 H Blood Pressure Mean 98 Blood Pressure Source Monitor Blood Pressure Position Semi-Fowlers Blood Pressure Location Right Arm Pulse Ox 98 Oxygen Delivery Method Room Air Weight Weight: 198 lb 6.656 oz Body Mass Index (BMI) 34.0 Physical Exam Const alert, oriented x3, no apparent distress and healthy appearing General Appearance: cooperative GI normal to inspection, nondistended, normoactive bowel sounds, soft to palpation, non-tender and non-distended Percussion: normal to percussion Rectal Exam: deferred Results Lab / Micro Data Labs: Laboratory Results - last 24 hr 05/25/24 11:30: Urine Test Negative Assessment & Plan Assessment/Plan (1) Nausea: (2) Diarrhea: (3) Family hx of colon cancer: (4) Anemia: PLAN: Assessment and Plan Assessment and Plan (1) Family hx of colon cancer: Status: Acute Plan: This is a 38 yo female with family hx of colon cancer in her sister at age 50. Pt is here to get scheduled for a colonoscopy. She does have numerous GI complaints including diarrhea, abd pain and nausea. She attributes most of this to her medications metformin and semaglutide. She will undergo both lower and upper endoscopy to screen for colon cancer and assess her GI tract for etiology of symptoms . She is agreeable. Will consider further treatment of her symptoms pending results. -Colonoscopy and EGD -Consider medication for diarrhea -f/u after procedure (2) Diarrhea: Status: Acute (3) Nausea: Status: Acute
[2024-05-25 12:30] LABS: Bedside Glucose 78 mg/dL (74-106)
--- NOTE | 2024-05-25 12:30 | COLBX_PTH ---
PATIENT: KALA ONEILL LOC: EN U#:[id number] AGE/SX: 38/F ROOM: RE05/25/[address]: Dr. Erick Carnes DO : 1985 BED: DIS: 05/25/2024 SPEC #: [id number] RECD: 05/26/24 17:02 STATUS: IFRAH REWilly #: [id number] ROBERT: 05/25/24 12:[address]: Erick Carnes DEPT: SURGICAL PATHOLOGY RECD BY: Gabi Tian ENTERED: 05/26/24 08:19 SP TYPE: COLON BX OTHR DR: Dr. Librado Ybarra DO Tissues: A - Duodenum, NOS B - Gastric mucous membrane C - Esophagus, NOS D - SPLENIC FLEXURE E - Sigmoid colon biopsy Procedures: Special Stain Group I Surgery Specimen Level IV Alcian Blue/PAS (control) HEADER OPERATION: Colonoscopy, EGD PRE-OP DIAGNOSIS: Routine cancer screening TISSUE SUBMITTED: A- Duodenum biopsy, B- Gastric antrum biopsy, C- Distal esophagus biopsy, D- Splenic flexure polyp, E- Sigmoid polyp MICROSCOPIC DIAGNOSIS A. Duodenum, biopsy: Fragments of duodenal mucosa with mild congestion and hemorrhage. B. Gastric antrum, biopsy: Mild gastritis. See microscopic description and comment. C. Distal esophagus, biopsy: Fragments of gastroesophageal mucosa with chronic inflammation and changes consistent with gastroesophageal reflux disease. Intestinal metaplasia (goblet cell metaplasia) not identified. See comment. D. Splenic flexure polyp, biopsy: Fragments of hyperplastic polyp. E. Sigmoid colon polyp, biopsy: Fragments of hyperplastic polyp. . 05/27/2024 COMMENT B. The results of immunohistochemistry for Helicobacter pylori will be reported separately ([id number]). C. Alcian blue/PAS stain with matched control is used in the evaluation of the specimen. MICROSCOPIC DESCRIPTION Slides are reviewed. B. The specimen shows fragments of gastric mucosa with chronic inflammatory cell infiltrates in the lamina propria consisting of lymphocytes and plasma cells, consistent with mild chronic gastritis. GROSS DESCRIPTION A. Received in fixative is one container labeled with the patient's name and designated Duodenum biopsy. The specimen consists of two irregular fragments of light girard soft tissue that in aggregate measure 0.8 x 0.2 x 0.2 cm. The specimen is totally submitted in one cassette. B. Received in fixative is one container labeled with the patient's name and designated Gastric antrum biopsy. The specimen consists of two irregular fragments of light girard soft tissue that in aggregate measure 0.7 x 0.2 x 0.2 cm. The specimen is totally submitted in one cassette. C. Received in fixative is one container labeled with the patient's name and designated Distal esophagus biopsy. The specimen consists of multiple irregular fragments of light girard soft tissue that in aggregate measure 1 x 0.2 x 0.2 cm. The specimen is totally submitted in one cassette. D. Received in fixative is one container labeled with the patient's name and designated Splenic flexure polyp. The specimen consists of multiple irregular fragments of light girard soft tissue that in aggregate measure 0.8 x 0.2 x 0.2 cm. The specimen is totally submitted in one cassette. E. Received in fixative is one container labeled with the patient's name and designated Sigmoid polyp. The specimen consists of two irregular fragments of light girard soft tissue that in aggregate measure 0.8 x 0.3 x 0.2 cm. The specimen is totally submitted in one cassette. 05/26/2024 TC:1 CPT:66490o6,65829
--- NOTE | 2024-05-25 12:30 | IMM_PTH ---
PATIENT: KALA ONEILL LOC: EN U#:[id number] AGE/SX: 38/F ROOM: RE05/25/[address]: Dr. Erick Carnes DO : 1985 BED: DIS: 05/25/2024 SPEC #: [id number] RECD: 05/26/24 08:31 STATUS: IFRAH REQ #: [id number] ROBERT: 05/25/24 12:[address]: Erick Carnes DEPT: IMMUNOHISTOCHEMISTRY RECD BY: Ehsan Holland ENTERED: 05/26/24 08:31 SP TYPE: IMMUNO OTHR DR: Dr. Librado Ybarra DO Tissues: B - Gastric mucous membrane Procedures: H Pylori (initial) PHYSICIAN & INSTITUTION [place] [address] SPECIMEN INFORMATION: Tissue Source: B- Gastric antrum biopsy Clinical Info: Routine cancer screening Specimen Number: [id number] CPT code: 46847 METHODOLOGY: Deparaffinized sections of prefer/formalin-fixed tissue or PAP/DQ stained slides are incubated with monoclonal/polyclonal antibodies/oligonucleotide probes. Localization is made via biotin free immunoperoxidase method. Appropriate controls are performed and reacted as expected. Results on target cell population are indicated in the following table: RESULTS: ANTIBODY / CLONE RESULT Block B H Pylori (polyclonal) negative These tests were developed and their performance characteristics determined by [facility]. They may not have been cleared or approved by the U.S. Food and Drug Administration. The FDA has determined that such clearance or approval is not necessary. The above immunohistochemical/dualISH markers are ordered and reviewed by the Pathologist. INTERPRETATION: B. Gastric antrum, biopsy: Negative for Helicobacter pylori organisms. 05/27/2024
--- NOTE | 2024-05-25 12:33 | PCM.PRE.AN2 ---
ASA Classification* ASA Classification ASA Classification: 2 Assessment & Plan Anesthesia* Anesthesia Assessment Anesthesia Assessment: Discussed sedation and/or anesthesia options, risks, benefits, and alternatives with patient/parents/legal guardian/POA. Questions invited. The patient/parents/legal guardian/POA seems to understand and agrees to proceed with anesthesia plan. Reviewed the physical assessment, medical history, allergy history and patient home medications list prior to surgery/procedure/anesthetic and documented any changes. Performed airway and anesthesia risk assessments. Anesthesia Type Anesthesia Type: MAC History Source History Obtained from:: Patient and Chart Anesthesia Focused Assessment* Temperature: 97.8 F Pulse Rate: 55 Blood Pressure: 139/78 Respiratory Rate: 17 Pulse Ox: 98 Oxygen Delivery Method: Room Air Airway Assessment Mouth opens: >3 cm Mallampati Score: III Teeth Condition: Intact Neck Range of motion (ROM): Full ROM Focused Labs Anesthesia Preop lab: CBC WBC 9.0 K/mm3 (4.4-11.0) 12/17/23 12:18 12/17/23 RBC 4.67 M/mm3 (4.2-5.4) 12/17/23 12:18 12/17/23 Hgb 13.9 g/dL (12.0-15.0) 12/17/23 12:18 12/17/23 Hct 41.0 % (37-47) 12/17/23 12:18 12/17/23 Plt Count 220 K/mm3 (150-450) 12/17/23 12:18 12/17/23 CHEMISTRY Potassium 3.7 mmol/L (3.5-5.1) 12/17/23 12:18 12/17/23 Sodium 140 mmol/L (136-145) 12/17/23 12:18 12/17/23 Magnesium 1.7 mg/dL (1.8-2.4) L 05/20/14 16:10 05/20/14 Phosphorus 3.0 mg/dL (2.5-4.9) 11/23/21 09:07 11/23/21 BUN 20 mg/dL (7-18) H 12/17/23 12:18 12/17/23 Creatinine 0.82 mg/dL (0.55-1.02) 12/17/23 12:18 12/17/23 Glucose 89 mg/dL (74-106) 12/19/23 08:27 12/19/23 POC Glucose 78 mg/dL (74-106) 05/25/24 11:43 05/25/24 TSH 1.310 uIU/mL (0.358-3.740) 12/17/23 12:18 12/17/23 COAG PT 13.4 SECONDS (11.7-14.9) 08/02/21 10:11 08/02/21 HCG, Quant < 1 mIU/mL (1-3) 10/27/20 13:08 10/27/20 Urine Test Negative Negative 05/25/24 11:30 05/25/24 Pre-Assessment Diagnosis/Proposed Procedure Planned Operative Procedure(s): EGD/CSCOPE Anesthesia History 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 When Was Last Pacemaker Check QUESTION #4 FULL TEXT: You/Your Family Experience fever (hyperthermia) with Anesthesia Last Oral Intake Last Oral intake: Last Oral Intake NPO since 08:30 05/25/24 11:47 Meds taken in AM with sips of No 05/25/24 11:47 water? 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 Female Yes 05/20/24 12:47 HX of Motion Sickness No 05/20/24 12:47 HX of N/V After Surgery No 05/20/24 12:47 Non-Smoker Yes 05/20/24 12:47 Duration of Surgery greater No 05/20/24 12:47 than 60 minutes Number of Risk Factors 2 05/20/24 12:47 PONV Score Moderate Risk 05/20/24 12:47 Height & Weight Height & Weight: Anesthesia: Height & Weight Height 5 ft 4 in 05/25/24 11:47 Weight: 90 kg 05/25/24 11:47 Body Mass Index (BMI) 34.0 05/25/24 11:47 Respiratory Assessment Respiratory Assessment - dump truck driver: Respiratory Tract Infection Hx - 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 Has anyone observed you stop No 05/20/24 12:47 breathing during sleep? STOP Results Positive 05/20/24 12:47 QUESTION #5 FULL TEXT : Do you snore loudly (louder than talking or can be heard through closed doors)? 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 Specify any problems Hx of Preganancy in last 3 No 05/20/24 12:47 Months Nurse Filling Out Transfusion DSCHRIBER 05/20/24 12:47 & Questions: Date: 05/20/24 05/20/24 12:47 Time: 12:48 05/20/24 12:47 Patient unable to answer at this time (ie. 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: /Reproductive Hx- dump truck driver Hx Now No 05/20/24 12:47 Gestational Age (in weeks): EDC: Hx Hx Para Hx Section SAB No 05/20/24 12:47 [facility] Medical History Vapes nicotine containing substance Diabetes Low iron CPAP (continuous positive airway pressure) dependence Hypersomnia Major depressive disorder Encounter for screening laboratory testing for COVID-19 virus Acute bronchitis, unspecified Wears contact lenses Wears glasses Depression Anxiety Gastric reflux History of echocardiogram Cardiology follow-up encounter Hx of pilonidal cyst delivery delivered Home Medications ?Medication ?Instructions ?Recorded ?Last Taken ?Type omeprazole 20 mg capsule,delayed 20 mg PO DAILY 01/22/22 05/24/24 History release lorazepam 0.5 mg tablet 0.5 mg PO DAILY PRN anxiety #30 02/23/24 Unknown Rx tabs ferrous fumarate 324 mg (106 mg 324 mg PO DAILY 03/10/24 Unknown History iron) tablet metformin 1,000 mg tablet 1,000 mg PO QDAY 03/10/24 05/24/24 History Lactobacillus acidophilus 250 500 mmu cells PO DAILY 05/20/24 Unknown History million cell capsule (Probiotic Acidophilus) ashwagandha extract 62.5 mg 62.5 mg PO DAILY 05/20/24 05/24/24 History chewable tablet (Ashwagandha root leaf extract) bupropion HCl 150 mg 24 hr tablet, 150 mg PO QHS 05/20/24 05/24/24 History extended release (Wellbutrin XL) cholecalciferol (vitamin D3) 50 50 mcg PO DAILY 05/20/24 Unknown History mcg (2,000 unit) capsule (Vitamin D3) cyanocobalamin-liver extract tablet 1 tab PO DAILY 05/20/24 Unknown History escitalopram oxalate 10 mg tablet 10 mg PO QHS 05/20/24 05/24/24 History omega 3-gwg-cqj-fish oil 1,200 mg 1 cap PO DAILY 05/20/24 Unknown History (144 mg-216 mg) capsule (Fish Oil) Allergy/AdvReac Type Severity Reaction Status Date / Time citalopram hydrobromide Allergy Hives Verified 05/25/24 11:46 (From Celexa) Penicillins (PCN) Allergy Hives Verified 05/25/24 11:46 tetanus immune globulin Allergy Hives Verified 05/25/24 11:46 liraglutide (From Victoza) AdvReac Nausea/Vom/ Verified 05/25/24 11:46 Diarrhea morphine AdvReac Itching Verified 05/25/24 11:46 Family History Mother Hypertension High cholesterol Sister Thyroid disorder cancer Cancer Surgical History History of hysteroscopy Previous section H/O repair of right rotator cuff History of appendectomy Hx of cholecystectomy History of tonsillectomy Social History household members: spouse and children housing: house current occupational status: employed 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
--- NOTE | 2024-05-25 13:17 | PCM.POST.ANE ---
Anesthesia: Postop Eval I Current Vital Signs Temperature: 98.3 F Pulse Rate: 71 Blood Pressure: 114/63 Respiratory Rate: 16 Pulse Ox: 98 Oxygen Delivery Method: Room Air Assessment Airway patent: Yes Spontaneous unlabored respirations: Yes Mental status: Asleep nausea: No Vomiting: No Anesthesia Complication: No Fluid Hydration Crystalloid volume administer (ml): 60 Total IV fluid infused: 60 Progress Note Anesthesia document: Postop Eval 1 completed: Yes
--- NOTE | 2024-05-25 13:18 | OP.EGD_ITS ---
Patient Name: Beatrice Borrego Procedure Date: 05/25/2024 12:35 PM Date of : 1985 Age: 38 Procedure: Upper GI endoscopy Indications: Epigastric abdominal pain, Functional Dyspepsia, Heartburn, Suspected reflux esophagitis Providers: Erick Carnes DO Medicines: Monitored Anesthesia Care Patient Profile: This is a 38 year old female. Refer to note in patient chart for documentation of history and physical. Patient has symptoms of chronic epigastric abdominal pain and chronic dyspepsia. Complications: No immediate complications. Procedure: Pre-Anesthesia Assessment: - Prior to the procedure, a History and Physical was performed, and patient medications and allergies were reviewed. The patient is competent. The risks and benefits of the procedure and the sedation options and risks were discussed with the patient. All questions were answered and informed consent was obtained. Patient identification and proposed procedure were verified by the physician in the pre-procedure area. Mental Status Examination: alert and oriented. Airway Examination: normal oropharyngeal airway and neck mobility. Respiratory Examination: clear to auscultation. CV Examination: normal. Prophylactic Antibiotics: The patient does not require prophylactic antibiotics. Prior Anticoagulants: The patient has taken no anticoagulant or antiplatelet agents except for NSAID medication. ASA Grade Assessment: II - A patient with mild systemic disease. After reviewing the risks and benefits, the patient was deemed in satisfactory condition to undergo the procedure. The anesthesia plan was to use monitored anesthesia care (MAC). Immediately prior to administration of medications, the patient was re-assessed for adequacy to receive sedatives. The heart rate, respiratory rate, oxygen saturations, blood pressure, adequacy of pulmonary ventilation, and response to care were monitored throughout the procedure. The physical status of the patient was re-assessed after the procedure. After obtaining informed consent, the endoscope was passed under direct vision. Throughout the procedure, the patient's blood pressure, pulse, and oxygen saturations were monitored continuously. The Colonoscope was introduced through the mouth, and advanced to the second part of duodenum. The upper GI endoscopy was accomplished without difficulty. The patient tolerated the procedure well. Scope In: 12:48:35 PM Scope Out: 12:53:30 PM Total Procedure Duration Time 0 hours 4 minutes 55 seconds Findings: The Z-line was irregular and was found 39 cm from the incisors. Biopsies were taken with a cold forceps for histology. Verification of patient identification for the specimen was done. Estimated blood loss was minimal. LA Grade A (one or more mucosal breaks less than 5 mm, not extending between tops of 2 mucosal folds) esophagitis with no bleeding was found 37 to 39 cm from the incisors. Patchy mildly erythematous mucosa without bleeding was found in the gastric antrum. Biopsies were taken with a cold forceps for histology. Verification of patient identification for the specimen was done. Biopsies were taken with a cold forceps for Helicobacter pylori testing. Verification of patient identification for the specimen was done. Estimated blood loss was minimal. Patchy mildly erythematous mucosa without active bleeding and with no stigmata of bleeding was found in the duodenal bulb. Biopsies were taken with a cold forceps for histology. Verification of patient identification for the specimen was done. Estimated blood loss was minimal. Impression: - Z-line irregular, 39 cm from the incisors. Biopsied. - LA Grade A reflux esophagitis with no bleeding. - Erythematous mucosa in the antrum. Biopsied. - Erythematous duodenopathy. Biopsied. Recommendation: - Discharge patient to home. - Resume previous diet. - Continue present medications. - Await pathology results. Procedure Code(s): --- Professional --- 36485, Esophagogastroduodenoscopy, flexible, transoral; with biopsy, single or multiple CPT copyright 2021 [employer]. All rights reserved. The codes documented in this report are preliminary and upon commutator assembler review may be revised to meet current compliance requirements. Erick Carnes DO 05/25/2024 1:18:22 PM This report has been signed electronically. Number of Addenda: 0 Note Initiated On: 05/25/2024 12:35 PM
--- NOTE | 2024-05-25 13:18 | OP.CCLET_ITS ---
05/25/2024 Librado Ybarra [address] [facility] [place] [address] Re : Upper GI endoscopy procedure for Beatrice Borrego Dear Dr. Ybarra This procedure was performed on Saturday, May 25, 2024. My impressions and recommendations are as follows: Impressions : - Z-line irregular, 39 cm from the incisors. Biopsied. - LA Grade A reflux esophagitis with no bleeding. - Erythematous mucosa in the antrum. Biopsied. - Erythematous duodenopathy. Biopsied. Recommendations : - Discharge patient to home. - Resume previous diet. - Continue present medications. - Await pathology results. My findings are described in the full procedure note, which is enclosed. If I can be of further assistance, please feel free to contact me at . Sincerely, Erick Carnes, 05/25/2024 1:18:22 PM This report has been signed electronically.
--- NOTE | 2024-05-25 13:21 | OP.CCLET_ITS ---
05/25/2024 Librado Ybarra [address] [place] [address] Re : Colonoscopy procedure for Beatrice Borrego Dear Dr. Ybarra This procedure was performed on Saturday, May 25, 2024. My impressions and recommendations are as follows: Impressions : - Two 8 mm polyps in the sigmoid colon and at the splenic flexure, removed with a jumbo cold forceps. Resected and retrieved. - The examination was otherwise normal on direct and retroflexion views. Recommendations : - Discharge patient to home. - Resume previous diet. - Continue present medications. - Await pathology results. - Repeat colonoscopy in 5 years for surveillance. My findings are described in the full procedure note, which is enclosed. If I can be of further assistance, please feel free to contact me at . Sincerely, Erick Carnes, 05/25/2024 1:20:55 PM This report has been signed electronically.
--- NOTE | 2024-05-25 13:21 | OP.COLON_ITS ---
Patient Name: Beatrice Borrego Procedure Date: 05/25/2024 12:54 PM Date of : 1985 Age: 38 Procedure: Colonoscopy Indications: Screening in patient at increased risk: Family history of 1st-degree relative with colorectal cancer before age 60 years Providers: Erick Carnes DO Medicines: Monitored Anesthesia Care Patient Profile: This is a 38 year old female. Refer to note in patient chart for documentation of history and physical. Patient has symptoms of chronic epigastric abdominal pain and chronic dyspepsia. Last Colonoscopy: none. The patient's first colonoscopy is today. Complications: No immediate complications. Procedure: Pre-Anesthesia Assessment: - Prior to the procedure, a History and Physical was performed, and patient medications and allergies were reviewed. The patient is competent. The risks and benefits of the procedure and the sedation options and risks were discussed with the patient. All questions were answered and informed consent was obtained. Patient identification and proposed procedure were verified by the physician in the pre-procedure area. Mental Status Examination: alert and oriented. Airway Examination: normal oropharyngeal airway and neck mobility. Respiratory Examination: clear to auscultation. CV Examination: normal. Prophylactic Antibiotics: The patient does not require prophylactic antibiotics. Prior Anticoagulants: The patient has taken no anticoagulant or antiplatelet agents except for NSAID medication. ASA Grade Assessment: II - A patient with mild systemic disease. After reviewing the risks and benefits, the patient was deemed in satisfactory condition to undergo the procedure. The anesthesia plan was to use monitored anesthesia care (MAC). Immediately prior to administration of medications, the patient was re-assessed for adequacy to receive sedatives. The heart rate, respiratory rate, oxygen saturations, blood pressure, adequacy of pulmonary ventilation, and response to care were monitored throughout the procedure. The physical status of the patient was re-assessed after the procedure. After I obtained informed consent, the scope was passed under direct vision. Throughout the procedure, the patient's blood pressure, pulse, and oxygen saturations were monitored continuously. The Colonoscope was introduced through the anus and advanced to the terminal ileum. The colonoscopy was performed without difficulty. The patient tolerated the procedure well. The quality of the bowel preparation was adequate. The ileocecal valve, appendiceal orifice, and rectum were photographed. Scope In: 12:55:41 PM Scope Withdrawal Time 0 hours 10 minutes 11 seconds Scope Out: 1:08:15 PM Total Procedure Duration Time 0 hours 12 minutes 34 seconds Findings: The perianal and digital rectal examinations were normal. Two sessile polyps were found in the sigmoid colon and splenic flexure. The polyps were 8 mm in size. These polyps were removed with a jumbo cold forceps. Resection and retrieval were complete. Verification of patient identification for the specimen was done. Estimated blood loss was minimal. The exam was otherwise without abnormality on direct and retroflexion views. Impression: - Two 8 mm polyps in the sigmoid colon and at the splenic flexure, removed with a jumbo cold forceps. Resected and retrieved. - The examination was otherwise normal on direct and retroflexion views. Recommendation: - Discharge patient to home. - Resume previous diet. - Continue present medications. - Await pathology results. - Repeat colonoscopy in 5 years for surveillance. Procedure Code(s): --- Professional --- 14865, Colonoscopy, flexible; with biopsy, single or multiple CPT copyright 2021 [employer]. All rights reserved. The codes documented in this report are preliminary and upon sales teacher review may be revised to meet current compliance requirements. Erick Carnes DO 05/25/2024 1:20:55 PM This report has been signed electronically. Number of Addenda: 0 Note Initiated On: 05/25/2024 12:54 PM
--- NOTE | 2024-05-25 18:42 | PCM.POSTANE2 ---
Anesthesia Postop Eval I Sum Postop Eval Completion status Anesthesia document: Postop Eval 1 completed: Yes Anesthesia Postop Eval I Summary Anesthesia Postop Eval I Summary: Anesthesia Postop Eval I: Assessment Summary Airway patent Yes 05/25/24 13:18 [email or web address] Spontaneous unlabored Yes 05/25/24 13:18 [email or web address] respirations Mental status Asleep 05/25/24 13:18 [email or web address] nausea No 05/25/24 13:18 [email or web address] Vomiting No 05/25/24 13:18 [email or web address] Anesthesia Postop Eval I: Fluid Summary Crystalloid volume administer 60 05/25/24 13:18 [email or web address] (ml) Colloids volume administered ( ml) Blood Product volume administered (ml) Total IV fluid infused 60 05/25/24 13:18 [email or web address] Anesthesia Postop Eval I: Summary Notes Anesthesia Complication No 05/25/24 13:18 [email or web address] Anesthesia Complication Comment: Post-operative progress note Anesthesia: Postop Eval II Evaluation Mental status: Calm Pain Level: 0 nausea: No Vomiting: No Complications Anesthesia Complication: No
== END 2024-05-25 13:51 | disposition home or self-care (01) ==
LOC: EN 11:25 → AC 11:26
PROVIDERS: Anesthesiology; PCP Family Medicine; Referring Provider Family Medicine; Visit Provider Internal Medicine Gastroenterology
PROC: 0DJD8ZZ Inspection of Lower Intestinal Tract, Via Natural or Artificial Opening Endoscopic (ICD-10-PCS; CPT 45378; principal; 2024-05-25 12:25)
DX: K31.89 Other diseases of stomach and duodenum (principal); E11.9 Type 2 diabetes mellitus without complications; D64.9 Anemia, unspecified; K63.5 Polyp of colon; K21.00 Gastro-esophageal reflux disease with esophagitis, without bleeding; F41.9 Anxiety disorder, unspecified; F32.A Depression, unspecified; K29.70 Gastritis, unspecified, without bleeding; Z87.891 Personal history of nicotine dependence; Z80.0 Family history of malignant neoplasm of digestive organs; Z79.84 Long term (current) use of oral hypoglycemic drugs; Z79.899 Other long term (current) drug therapy
CPT/HCPCS: 43239; 45380; 81025; 82962; 88305; 88312; 88342; A4216; J2405

== ENCOUNTER → 2024-07-19 | Outpatient (CLI) | payer OTHER, SELFPAY ==
[2024-07-19 18:26] LABS: Erythrocyte Sedimentation Rate 5 mm/hr (0-30)
[2024-07-19 19:36] LABS: CRP 4.03 mg/L (0.0-3.0); Rheumatoid Factor < 10.0 IU/mL (<15)
[2024-07-21 11:08] LABS: CCP IgG Antibodies 6 units (0-19)
== END | disposition home or self-care (01) ==
LOC: LAB 17:28
PROVIDERS: PCP Family Medicine; Referring Provider Family Medicine; Visit Provider Family Medicine
DX: M13.0 Polyarthritis, unspecified (principal)
CPT/HCPCS: 36415; 85652; 86140; 86200; 86431

== ENCOUNTER 2024-07-20 10:55 | Emergency (ER) | payer OTHER, SELFPAY ==
[2024-07-20 10:56] VITALS: BP 144/88; PULSE 63; RESP 16; TEMP 36.8; O2SAT 100; BMI 35.7
--- NOTE | 2024-07-20 11:14 | US_ITS ---
PROCEDURE: TRANSVAGINAL NON- REASON FOR EXAM: PELVIC PAIN Spotting. TECHNIQUE: Transvaginal pelvic ultrasound FINDINGS: Measurements: Uterus: 10.3 cm x 6.3 cm x 5.3 cm with a volume of 177 mL Endometrial Thickness: 3.5 mm. Hyperechoic. Right Ovary: 2.5 cm x 2 cm x 1.6 cm with a volume of 4.41 mL. Left Ovary: 3.7 cm x 2.3 cm x 2 cm with a volume of 8.51 mL. TRANSVAGINAL: Uterus: Mildly enlarged. There is a 2.3 cm x 2 cm x 2 cm fundal posterior fibroid. Endometrium: 3.5 mm. Right ovary: Normal size and echotexture. Left ovary: Normal size and echotexture. Other adnexal findings: None. Cul-de-sac: No free intraperitoneal fluid identified. Tenderness: No tenderness US/Transvaginal Non- IMPRESSION: Mildly enlarged uterus with the fundal fibroid. Reading Location: [place] [address]
--- NOTE | 2024-07-20 11:15 | ED.VIS.FEGU ---
HPI HPI - Female History of Present Illness Chief Complaint: Vag Bleeding Informant: patient Narrative Narrative: Presents worsening pelvic pain since yesterday. She has been spotting for 3 days small clot. Last menstrual period was June 25. History of uterine fibroid followed by Dr. Arnold Johnson. She had recommended hysterectomy with possible adenomyosis however due to work currently being controlled with oral contraceptives. She is post to start a new oral contraceptive soon. She is on her -day of her current control. No blood thinners. No abnormal vaginal discharge other than spotting. Prior similar symptoms: Yes PFSH PFSH Medical History Carpal tunnel syndrome Flu-like symptoms Vapes nicotine containing substance Diabetes Low iron CPAP (continuous positive airway pressure) dependence Hypersomnia Major depressive disorder Encounter for screening laboratory testing for COVID-19 virus Acute bronchitis, unspecified Wears contact lenses Wears glasses Depression Anxiety Gastric reflux History of echocardiogram Cardiology follow-up encounter Hx of pilonidal cyst delivery delivered Home Medications ?Medication ?Instructions ?Recorded ?Last Taken ?Type ferrous fumarate 324 mg (106 mg 324 mg PO DAILY 03/10/24 07/19/24 History iron) tablet Lactobacillus acidophilus 250 500 mmu cells PO DAILY 05/20/24 07/19/24 History million cell capsule (Probiotic Acidophilus) ashwagandha extract 62.5 mg 62.5 mg PO DAILY 05/20/24 07/19/24 History chewable tablet (Ashwagandha root leaf extract) bupropion HCl 150 mg 24 hr tablet, 150 mg PO QHS 05/20/24 07/19/24 History extended release (Wellbutrin XL) cholecalciferol (vitamin D3) 50 50 mcg PO DAILY 05/20/24 07/19/24 History mcg (2,000 unit) capsule (Vitamin D3) cyanocobalamin-liver extract tablet 1 tab PO DAILY 05/20/24 07/19/24 History omega 3-mdu-tqu-fish oil 1,200 mg 1 cap PO DAILY 05/20/24 07/19/24 History (144 mg-216 mg) capsule (Fish Oil) omeprazole 40 mg capsule,delayed 40 mg PO QDAY #60 caps 06/01/24 07/19/24 Rx release escitalopram oxalate 10 mg tablet 10 mg PO QHS #90 tabs 06/23/24 07/19/24 Rx lorazepam 0.5 mg tablet 0.5 mg PO DAILY PRN anxiety #30 06/23/24 Unknown Rx tabs norethindrone 1 mg-ethinyl 1 tab PO ONCE #84 tabs 07/13/24 07/19/24 Rx estradiol 20 mcg (24)-iron 75 mg (4) tablet () ibuprofen 200 mg tablet (Advil) 800 mg PO Q6H PRN pain 07/20/24 07/20/24 History metformin 500 mg tablet,extended 1,000 mg PO QPM 07/20/24 07/19/24 History release 24 hr Allergy/AdvReac Type Severity Reaction Status Date / Time citalopram hydrobromide Allergy Hives Verified 07/20/24 10:59 (From Celexa) Penicillins (PCN) Allergy Hives Verified 07/20/24 10:59 tetanus immune globulin Allergy Hives Verified 07/20/24 10:59 liraglutide (From Victoza) AdvReac Nausea/Vom/ Verified 07/20/24 10:59 Diarrhea morphine AdvReac Itching Verified 07/20/24 10:59 Family History Mother Hypertension High cholesterol Alcoholism Arthritis Depression Sister Thyroid cancer Depression Colon cancer Arthritis Autoimmune disorder Thyroid disorder Father Alcoholism Anxiety Depression Myocardial infarction Psychiatric care Grandfather Lung cancer Aunt Esophageal cancer Surgical History H/O dilation and curettage History of hysteroscopy Previous section H/O repair of right rotator cuff History of appendectomy Hx of cholecystectomy History of tonsillectomy Social History household members: spouse and children housing: house number of children: 2 current occupational status: employed current occupation: [employer] Childrens pets and animals: Yes pets and animals: dog(s) Smoking Status: Former smoker alcohol intake: current substance use type: does not use what type of physical activity do you participate in: walking and weight training frequency: 3-4 times per week do you feel safe at home: Yes additional social history: Elias DUQUE NETO ED Constitutional Constitutional ED: Denies chills, fever(s) or sweats ENT ENT ED: Denies sore throat Cardiovascular Cardiovascular: Denies chest pain, leg edema, palpitations or racing heartbeat Respiratory/Chest Respiratory/Chest: Denies cough, dyspnea or dyspnea on exertion Gastrointestinal Gastrointestinal: Denies abdominal pain, diarrhea, nausea or vomiting Genitourinary Genitourinary ED: Reports other Details: Pelvic pain, vaginal spotting ; Denies dysuria, hematuria or urinary frequency Musculoskeletal Musculoskeletal: Denies back pain, extremity pain or neck pain Integumentary Denies rash or wounds Neurologic Neurologic: Denies headache(s), paresthesias or weakness EXAM Physical Exam Const Vital Signs: 07/20/24 10:56 07/20/24 12:47 Temperature 98.2 F 98.2 F Temperature Source Oral Pulse Rate 63 63 Respiratory Rate 16 16 Blood Pressure 144/88 H 138/78 H Blood Pressure Mean 106 98 Pulse Ox 100 100 Oxygen Delivery Method Room Air Positive well nourished and well developed General Appearance ED: well developed and NAD HEENT Reports moist mucous membranes normocephalic and atraumatic Eyes General Eye ED: Yes normal appearance of both eyes Neck full ROM Chest Wall Chest: Negative for tenderness Resp normal respiratory effort and normal air movement Effort and Inspection: symmetric chest movement; Negative for respiratory distress Cardio regular rate, regular rhythm and no murmurs Peripheral Pulses: pulses 2+ throughout GI normal to inspection, nondistended, normoactive bowel sounds and non-tender Palpation: Negative for guarding or rebound tenderness present Extremity normal to inspection General Extremety ED: Negative for edema or tenderness General Extremity: Negative for edema Neuro oriented x3 and no sensory deficits noted Sensorium / Orientation: awake and alert Skin no rashes or lesions noted and no wounds MDM MDM MDM Narrative Medical decision making narrative: Interventions / MDM: Differential diagnosis: Uterine fibroid, dysfunctional uterine bleeding, pelvic pain Diagnosis considered but do not suspect: Transvaginal ultrasound: My EKG interpretation: N/A Imaging independently reviewed and interpreted by myself: Transvaginal pelvic ultrasound: 2.4 cm uterine fibroid, 3.5 mm endometrium. No other acute process. External documents reviewed: November 2023 outpatient transvaginal ultrasound 1.4 cm uterine fibroid. Test considered but not ordered:N/A ED course: Worsening pelvic pain history uterine fibroid. Will check CBC hCG and transvaginal ultrasound for further evaluation. Ultrasound results now 2.4 cm uterine fibroid. Normal endometrium. Discussed findings with patient. She will continue current plans with her new oral contraceptives. She will continue Motrin. She will follow-up with her safety investigator. All questions were answered. Re-evaluation: stable Disposition discussed with patient/family/significant other: Patient Case discussed with consulting clinician: N/A This note was generated with [employer] dictation software. It may contain incorrect words, spelling, and punctuation that were not noted in checking the note before signing. Lab Data Attestation: I reviewed the patient's lab results. Labs: Laboratory Results - last 24 hr 07/20/24 07/20/24 11:19 11:20 WBC 9.7 RBC 4.49 Hgb 13.8 Hct 38.6 MCV 86.0 MCH 30.7 MCHC 35.8 RDW Std Deviation 38.6 RDW Coeff of Tania 12.3 Plt Count 227 MPV 10.7 Immature Gran % (Auto) 0.300 Neut % (Auto) 56.7 Lymph % (Auto) 32.8 Marion % (Auto) 6.0 Eos % (Auto) 3.7 Baso % (Auto) 0.5 Absolute Neuts (auto) 5.5 Absolute Lymphs (auto) 3.19 Nucleated RBC % 0 Urine Test Negative Radiography Diagnostic Testing: Clinical Impression(s) from Imaging Studies Transvaginal US 07/20/24 11:14 IMPRESSION: Mildly enlarged uterus with the fundal fibroid. Reading Location: [place] [address] Discharge Plan Triage Chief Complaint: Vag Bleeding ED Provider: Spenser Eldridge Dx/Rx/DC Orders Clinical Impression: Fibroid, uterine, Pelvic pain Instructions: ED Uterine Fibroids Prescriptions: No Action ferrous fumarate 324 mg (106 mg iron) tablet 324 mg PO DAILY Fe 24 1 mg-20 mcg (24)/75 mg (4) tablet 1 tab PO ONCE Qty: 84 3RF Rx Instructions: take only active pills, discard inactive and start new pack immediatley omega 9-qhr-epd-fish oil [Fish Oil] 1,200 (144-216) mg capsule 1 cap PO DAILY Probiotic Acidophilus 250 million cell capsule 500 mmu cells PO DAILY Ashwagandha root leaf extract 62.5 mg tablet,chewable 62.5 mg PO DAILY cholecalciferol (vitamin D3) [Vitamin D3] 50 mcg (2,000 unit) capsule 50 mcg PO DAILY cyanocobalamin-liver extract Tablet 1 tab PO DAILY bupropion HCl [Wellbutrin XL] 150 mg tablet extended release 24 hr 150 mg PO QHS metformin 500 mg tablet extended release 24 hr 1,000 mg PO QPM ibuprofen [Advil] 200 mg tablet 800 mg PO Q6H PRN (Reason: pain) omeprazole 40 mg capsule,delayed release(DR/EC) 40 mg PO QDAY Qty: 60 2RF lorazepam 0.5 mg tablet 0.5 mg PO DAILY PRN (Reason: anxiety) Qty: 30 1RF escitalopram oxalate 10 mg tablet 10 mg PO QHS Qty: 90 1RF Rx Instructions: TAKE 1 TABLET BY MOUTH ONCE DAILY Stand Alone Forms: ED Work / School Excuse Primary Care Provider: Librado Ybarra Referrals: Librado Ybarra DO [Primary Care Provider] - Tanesha Lind MD [Med Staff - Active Staff] - 1 Week Activity Restrictions/Additional Instructions: Ultrasound notes fibroid of 2.3 cm today. Previously 1.4 cm in November. Endometrial 3.5 mm. continue ibuprofen, continue plans with your new oral contraceptives. Follow-up with Dr. Arnold Johnson. Print Language: Swazi Disposition Disposition: Home, Self Care Discharge Date/Time: 07/20/24 12:47
[2024-07-20 11:26] LABS: Absolute Lymphocyte Count 3.19 X10^3/uL (0.83-4.51); Absolute Neutrophil Count 5.5 X10^3/uL (2.0-7.7); Basophil# 0.05 X10^3/uL; Basophil% 0.5 % (0-1); Eosinophil# 0.36 X10^3/uL; Eosinophils% 3.7 % (0-5); Hematocrit 38.6 % (37-47); Hemoglobin 13.8 g/dL (12.0-15.0); Lymphocyte # 3.19 X10^3/ul (0.83-4.51); Lymphocyte % 32.8 % (19-41); Mean Corp Hgb Conc 35.8 g/dL (32-36); Mean Corpuscular Hgb 30.7 pg (27.0-32.0); Mean Platelet Vol. 10.7 fl (6.2-12.0); Monocyte# 0.58 X10^3/uL; NRBC Flagged by Analyzer 0 % (0-5); Neutrophil # 5.53 X10^3/uL (2.7-7.7); Neutrophil % 56.7 % (47-70); Platelet Count 227 K/mm3 (150-450); RBC Distribution Width CV 12.3 % (11.6-14.6); RBC Distribution Width SD 38.6 fl (35.1-43.9); Red Blood Count 4.49 M/mm3 (4.2-5.4); White Blood Count 9.7 K/mm3 (4.4-11.0)
[2024-07-20 11:41] LABS: Internal QC Validated? YES +Cl - CLEAR BKGD; Pregnancy, Urine Negative Negative
[2024-07-20 12:47] VITALS: BP 138/78; PULSE 63; RESP 16; TEMP 36.8; O2SAT 100
== END 2024-07-20 12:47 | disposition home or self-care (01) ==
PROVIDERS: Emergency Provider Emergency Medicine; PCP Family Medicine; Visit Provider Emergency Medicine
DX: D25.9 Leiomyoma of uterus, unspecified (principal); E11.9 Type 2 diabetes mellitus without complications; Z79.899 Other long term (current) drug therapy; Z79.84 Long term (current) use of oral hypoglycemic drugs; Z87.891 Personal history of nicotine dependence
CPT/HCPCS: 76830; 81025; 85025; 99283; A4216

== ENCOUNTER → 2024-08-10 | Outpatient (CLI) | payer OTHER, SELFPAY ==
--- NOTE | 2024-08-10 12:51 | NM_ITS ---
PROCEDURE: GASTRIC EMPTYING STUDY 08/10/2024 REASON FOR EXAM: BILE ACID REFLUX COMPARISON: None. TECHNIQUE: The patient ingested a standard semi-solid meal oatmeal.. There was no vomiting postprandially. Anterior and posterior planar images of the upper abdomen were obtained for a total of 60 minutes. Regions of interest were drawn, and a geometric mean was used to calculate a [id number]. Medications taken in the past 24 hours that may affect gastric emptying: None RADIOPHARMACEUTICAL: Oral administration of 1.2 mCi technetium 99 M sulfur colloid within oatmeal. FINDINGS: During the time of imaging, gastroesophageal reflux was not demonstrated. Gastric emptying half-time by linear fit of 72.1 minutes. Gastric emptying at 12 minutes of 7%, at 30 minutes of 21%, at 48 minutes of 31%, and at 60 minutes of 39%. NM/Gastric Emptying Study IMPRESSION: Semi solid phase gastric emptying within the normal range, with gastric emptyin g of 39% at 60 minutes. Reading Location: [place] [address]
== END | disposition home or self-care (01) ==
LOC: NM 12:50
PROVIDERS: PCP Family Medicine; Referring Provider Student in an Organized Health Care Education/Training Program; Visit Provider Student in an Organized Health Care Education/Training Program
DX: R11.0 Nausea (principal); K21.9 Gastro-esophageal reflux disease without esophagitis
CPT/HCPCS: 78264; A9541

== ENCOUNTER → 2024-08-31 | Outpatient (CLI) | payer OTHER, SELFPAY ==
[2024-08-31 18:37] LABS: Color, Urine Yellow (Yellow); Glucose, Dipstick Normal (Normal); Ketone-Dipstick Negative (Negative); Leukocyte Esterase-Dipstick Negative /ul (Negative); Nitrite-Dipstick Negative (Negative); Occult Blood-Urine 10 /ul (Negative); Protein-Dipstick 15 mg/dl (Negative); Urine Bilirubin Dipstick Negative (Negative); Urine Clarity Sl. Cloudy (Clear); Urine Urobilinogen Normal (Normal)
== END | disposition home or self-care (01) ==
LOC: MTLAB 16:50
PROVIDERS: PCP Family Medicine; Referring Provider Family Medicine; Visit Provider Family Medicine
DX: R35.0 Frequency of micturition (principal)
CPT/HCPCS: 81002; 87086; 87088

== ENCOUNTER → 2024-09-29 | Outpatient (CLI) | payer OTHER, SELFPAY ==
[2024-09-29 17:44] LABS: Hematocrit 38.3 % (37-47); Hemoglobin 13.7 g/dL (12.0-15.0); Immature Granulocytes Count 0.010 X10^3/uL (0.0-0.0); Mean Corp Hgb Conc 35.8 g/dL (32-36); Mean Corpuscular Volume 84.4 fL (81-99); Mean Platelet Vol. 10.6 fl (6.2-12.0); NRBC Flagged by Analyzer 0 % (0-5); Platelet Count 237 K/mm3 (150-450); RBC Distribution Width CV 11.9 % (11.6-14.6); RBC Distribution Width SD 36.3 fl (35.1-43.9); Red Blood Count 4.54 M/mm3 (4.2-5.4); White Blood Count 7.5 K/mm3 (4.4-11.0)
[2024-09-29 18:41] LABS: AST(SGOT) 29 U/L (<=31); Alanine Aminotransfer ALT/SGPT 25 U/L (<=34); Albumin, Serum 4.4 g/dL (3.5-5.0); Alkaline Phosphatase 53 U/L (35-104); Anion Gap 12 (5-15); BUN 14 mg/dL (4-19); BUN/Creat Ratio 18.5 RATIO (10-20); Calcium,Total 9.5 mg/dL (7.6-11.0); Carbon Dioxide 22.0 mmol/L (21.0-32.0); Chloride 102 mmol/L (98-108); Globulin 2.9 g/dL (2.2-4.2); Glucose 109 mg/dL (70-99); Potassium 3.5 mmol/L (3.3-5.1)
== END | disposition home or self-care (01) ==
LOC: MTLAB 16:39
PROVIDERS: PCP Family Medicine; Referring Provider Student in an Organized Health Care Education/Training Program; Visit Provider Student in an Organized Health Care Education/Training Program
DX: R19.7 Diarrhea, unspecified (principal); R11.0 Nausea; K21.9 Gastro-esophageal reflux disease without esophagitis
CPT/HCPCS: 36415; 80053; 85025

== ENCOUNTER → 2024-09-30 | Outpatient (CLI) | payer OTHER, SELFPAY ==
[2024-10-05 07:07] LABS: Calprotectin, Stool 67 ug/g (0-120); Pancreatic Elastase, Fecal > 800 (>200)
== END | disposition home or self-care (01) ==
LOC: LABSPEC 12:42
PROVIDERS: PCP Family Medicine; Referring Provider Student in an Organized Health Care Education/Training Program; Visit Provider Student in an Organized Health Care Education/Training Program
DX: R11.0 Nausea (principal); R19.7 Diarrhea, unspecified
CPT/HCPCS: 82274; 82653; 83993; 87177; 87209; 87329; 87493; 87506

== ENCOUNTER → 2024-10-05 | Outpatient (CLI) | payer OTHER, SELFPAY ==
[2024-10-07 18:08] LABS: Immunoglobulin A 60 mg/dL (87-352)
[2024-10-12 01:07] LABS: Egg, Whole <0.10 kU/L (Class 0); Mussels <0.10 kU/L (Class 0)
== END | disposition home or self-care (01) ==
LOC: MTLAB 16:36
PROVIDERS: PCP Family Medicine; Referring Provider Student in an Organized Health Care Education/Training Program; Visit Provider Student in an Organized Health Care Education/Training Program
DX: K21.9 Gastro-esophageal reflux disease without esophagitis (principal); R19.7 Diarrhea, unspecified; R11.0 Nausea
CPT/HCPCS: 36415; 82784; 83516; 86003; 86005; 86255

== ENCOUNTER → 2024-12-21 | Outpatient (CLI) | payer OTHER, SELFPAY ==
--- NOTE | 2024-12-21 11:15 | EMB_PTH ---
PATIENT: KALA ONEILL [facility] U[facility][id number] AGE/SX: 38/F ROOM: RE12/21/[address]: Dr. Mony Cisneros MD : 1985 BED: DIS: 12/21/2024 SPEC #: [id number] RECD: 12/21/24 12:22 STATUS: IFRAH REWilly #: [id number] ROBERT: 12/21/24 11:[address]: Mony Cisneros DEPT: SURGICAL PATHOLOGY RECD BY: Ehsan Holland ENTERED: 12/21/24 15:23 SP TYPE: ENDOM BX/C BARRY DR: Dr. Librado Ybarra, DO Tissues: A - Endometrium, NOS Procedures: Surgery Specimen Level IV HEADER OPERATION: Endometrial biopsy PRE-OP DIAGNOSIS: Abnormal uterine bleeding TISSUE SUBMITTED: A- Endometrial tissue MICROSCOPIC DIAGNOSIS A. Endometrium, biopsy: * Scant inactive/superficial endometrium - see note. * Scant squamous and endocervical mucosa. * Note: A limited amount of tissue is present for evaluation. Clinical correlation to assess the adequacy of the sampling is necessary. MICROSCOPIC DESCRIPTION Slides are reviewed. GROSS DESCRIPTION A. Received in formalin labeled the patient's name and date of is a 1.8 x 0.8 x 0.2 cm aggregate of mucoid material and flecks of possible girard tissue. Entirely submitted in 1 cassette. Entirety of the specimen may not survive processing. [place] 12/21/2024 CPT:98344
--- NOTE | 2024-12-21 11:15 | EMB_PTH ---
PATIENT: KALA ONEILL [facility] U#:[id number] AGE/SX: 38/F ROOM: RE12/21/[address]: Dr. Mony Cisneros MD : 1985 BED: DIS: 12/21/2024 SPEC #: [id number] RECD: 12/21/24 12:22 STATUS: IFRAH REWilly #: [id number] ROBERT: 12/21/24 11:[address]: Mony Cisneros DEPT: SURGICAL PATHOLOGY RECD BY: Ehsan Holland ENTERED: 12/21/24 15:23 SP TYPE: ENDOM BX/C BARRY DR: Dr. Librado Ybarra, DO Tissues: A - Endometrium, NOS Procedures: Surgery Specimen Level IV HEADER OPERATION: Endometrial biopsy PRE-OP DIAGNOSIS: Abnormal uterine bleeding TISSUE SUBMITTED: A- Endometrial tissue MICROSCOPIC DIAGNOSIS A. Endometrium, biopsy: * Scant inactive/superficial endometrium - see note. * Scant squamous and endocervical mucosa. * Note: A limited amount of tissue is present for evaluation. Clinical correlation to assess the adequacy of the sampling is necessary. MICROSCOPIC DESCRIPTION Slides are reviewed. GROSS DESCRIPTION A. Received in formalin labeled the patient's name and date of is a 1.8 x 0.8 x 0.2 cm aggregate of mucoid material and flecks of possible girard tissue. Entirely submitted in 1 cassette. Entirety of the specimen may not survive processing. [place] 12/21/2024 CPT:37465
[2024-12-24 17:08] LABS: HPV APTIMA, High Risk Negative (Negative)
== END | disposition home or self-care (01) ==
LOC: LABSPEC 12:07
PROVIDERS: PCP Family Medicine; Visit Provider Obstetrics & Gynecology
DX: N93.9 Abnormal uterine and vaginal bleeding, unspecified (principal)
CPT/HCPCS: 87624; 88175; 88305; G0145

== ENCOUNTER 2025-01-18 07:25 | Day surgery (SDC) | payer OTHER, SELFPAY ==
[2025-01-04 17:16] LABS: Hematocrit 37.7 % (37-47); Hemoglobin 13.2 g/dL (12.0-15.0); Mean Corp Hgb Conc 35.0 g/dL (32-36); Mean Corpuscular Volume 84.0 fL (81-99); Mean Platelet Vol. 10.3 fl (6.2-12.0); Platelet Count 268 K/mm3 (150-450); RBC Distribution Width CV 11.5 % (11.6-14.6); RBC Distribution Width SD 35.1 fl (35.1-43.9); Red Blood Count 4.49 M/mm3 (4.2-5.4); White Blood Count 9.2 K/mm3 (4.4-11.0)
[2025-01-04 18:16] LABS: Magnesium 1.9 mg/dL (1.5-2.2)
[2025-01-18] VITALS (15 sets, daily range): BP systolic 106–150; BP diastolic 60–95; PULSE 72–90; RESP 14–20; TEMP 36–36.7; O2SAT 83–100; BMI 35.9
[2025-01-18 07:50] LABS: Internal QC Validated? YES +Cl - CLEAR BKGD; Pregnancy, Urine Negative Negative
[2025-01-18 07:51] LABS: Record Kit Lot#,Urine Preg 0000980607
[2025-01-18] MEDS: Lactated Ringers 1,000 ML 40 ML IV (07:55)
[2025-01-18] MEDS: Magnesium 2 GM for ERAS IV (07:55)
[2025-01-18 08:02] LABS: Hematocrit 37.1 % (37-47); Hemoglobin 13.2 g/dL (12.0-15.0); Mean Corp Hgb Conc 35.6 g/dL (32-36); Mean Corpuscular Volume 84.3 fL (81-99); Mean Platelet Vol. 10.2 fl (6.2-12.0); Platelet Count 230 K/mm3 (150-450); RBC Distribution Width CV 11.8 % (11.6-14.6); RBC Distribution Width SD 36.0 fl (35.1-43.9); Red Blood Count 4.40 M/mm3 (4.2-5.4); White Blood Count 7.6 K/mm3 (4.4-11.0)
[2025-01-18] MEDS: Scopolamine 1mg/72hr Patch 1 PATCH TD (08:06)
[2025-01-18] MEDS: Clindamycin 900 MG/50 ML BAG 75 MG IV (08:21)
[2025-01-18] MEDS: Midazolam 2 MG/2 ML Syringe IV (09:49)
[2025-01-18] MEDS: Lidocaine 1% (5 ml sdv) 5 ML Vial IV (09:55)
[2025-01-18] MEDS: Gentamicin 800 MG/20 ML Vial 350 MG IV (09:55)
[2025-01-18] MEDS: fentaNYL 100 MCG/2 ML Ampul 200 MCG IV (10:49)
[2025-01-18] MEDS: Lactated Ringers 2,000 ML 2000 ML IV (11:00)
[2025-01-18] MEDS: Ketorolac 30 MG/ML Syringe IV (13:05)
[2025-01-18] MEDS: Lactated Ringers 1,000 ML 70 ML IV (13:24)
[2025-01-18 15:18] LABS: Hematocrit 35.8 % (37-47); Hemoglobin 12.7 g/dL (12.0-15.0); Immature Granulocytes Count 0.040 X10^3/uL (0.0-0.0); Mean Corp Hgb Conc 35.5 g/dL (32-36); Mean Corpuscular Volume 84.0 fL (81-99); Mean Platelet Vol. 10.4 fl (6.2-12.0); NRBC Flagged by Analyzer 0 % (0-5); Platelet Count 238 K/mm3 (150-450); RBC Distribution Width CV 11.9 % (11.6-14.6); RBC Distribution Width SD 35.8 fl (35.1-43.9); Red Blood Count 4.26 M/mm3 (4.2-5.4); White Blood Count 13.0 K/mm3 (4.4-11.0)
[2025-01-18] MEDS: Simethicone 40MG/0.6ML Bottle 80 MG PO (16:45)
== END 2025-01-18 17:05 | disposition home or self-care (01) ==
LOC: SDC 07:26 → AC 07:27
PROVIDERS: Anesthesiology; PCP Family Medicine; Referring Provider Obstetrics & Gynecology; Visit Provider Obstetrics & Gynecology
PROC: 0UT9FZZ Resection of Uterus, Via Natural or Artificial Opening With Percutaneous Endoscopic Assistance (ICD-10-PCS; CPT 58552; principal; 2025-01-18 09:05)
DX: D25.1 Intramural leiomyoma of uterus (principal); E11.9 Type 2 diabetes mellitus without complications; Z79.4 Long term (current) use of insulin; Z87.891 Personal history of nicotine dependence; K21.9 Gastro-esophageal reflux disease without esophagitis; Z79.899 Other long term (current) drug therapy; N80.03 Adenomyosis of the uterus; N83.8 Other noninflammatory disorders of ovary, fallopian tube and broad ligament
CPT/HCPCS: 58552; 00944; 36415; 81025; 82962; 83735; 85025; 85027; 86850; 86900; 86901; 88307; 93005; J2405

== ENCOUNTER 2025-01-25 | Observation (INO) | payer OTHER, SELFPAY ==
[2025-01-25] VITALS (13 sets, daily range): BP systolic 120–146; BP diastolic 69–96; PULSE 83–102; RESP 16–22; TEMP 37.1–37.7; O2SAT 95–100; BMI 36.1; BMI 35.6
--- OUTSIDE RECORDS SUMMARY | 2025-01-25 00:35 | XMS RPT_ITS | CCD ---
Author Organization [facility] Care Team Providers Care Washer Engineer Helper Name Role Phone Dr. Librado Ybarra Primary Care Provider Dr. Librado Ybarra Referring Provider [phone] Faith BANERJEE, LAVONNE Blanc Attending Provider [phone] YUMI BROOKS Attending Unavailable BROOKS, YUMI SUMMER Primary Care Unavailable BROOKS, YUMI SUMMER Admitting Unavailable BROOKS, YUMI SUMMER Admitting Unavailable BROOKS, YUMI SUMMER Primary Care Unavailable BROOKS, YUMI SUMMER Attending Unavailable BROOKS, YUMI SUMMER Primary Care Unavailable BROOKS, YUMI SUMMER Attending Unavailable BROOKS, YUMI SUMMER Admitting Unavailable VASSAS, ERNESTO Admitting Unavailable VASSAS, ERNESTO Primary Care Unavailable VASSAS, ERNESTO Attending Unavailable Unavailable Primary Care Provider Unavailabl MELISSA Khan Referring Unavailable MELISSA VERGARA Attending Unavailable Tate, Librado Primary Care Unavailable Mony Cisneros Attending Unavailable Mony Cisneros Consulting Unavailable Mony Cisneros Referring Unavailable Tate, Librado Primary Care Unavailable Raphael Kidd Attending Unavailable Hali Ruiz Attending Unavailable Tate, Librado Primary Care Unavailable Tate, Librado Referring Unavailable Hali Ruiz Referring Unavailable Hali Ruiz Attending Unavailable Tate, Librado Primary Care Unavailable Tate, Librado Primary Care Unavailable Spenser Eldridge Attending Unavailable TateLibrado Attending Unavailable Tate, Librado Primary Care Unavailable Tate, Librado Referring Unavailable Tate, Librado Primary Care Unavailable Mony Cisneros Attending Unavailable Mony Cisneros Referring Unavailable Tate, Librado Primary Care Unavailable Tc Cottrell Attending Unavailable Tate, Librado Primary Care Unavailable Raphael Kidd Attending Unavailable Tate, Librado Referring Unavailable AtanasovHali Attending Unavailable Tate, Librado Primary Care Unavailable Tate, Librado Primary Care Unavailable Mony Cisneros Attending Unavailable MarcanthonyMony Referring Unavailable Tate, Librado Attending Unavailable Tate, Librado Primary Care Unavailable Tate, Librado Referring Unavailable Tate, Librado Primary Care Unavailable Mony Cisneros Attending Unavailable AtanasHali ferro Referring Unavailable Atanasov, Hali Attending Unavailable Tate, Librado Primary Care Unavailable Atanasov, Hali Attending Unavailable Atanasov, Hali Referring Unavailable Tate, Librado Primary Care Unavailable Atanasov, Hali Attending Unavailable Atanasov, Hali Referring Unavailable Tate, Librado Primary Care Unavailable Tate, Librado Referring Unavailable Tate, Librado Primary Care Unavailable Nik Clark Attending Unavailable Tate, Librado Primary Care Unavailable Tate, Librado Referring Unavailable MarcanthonyMony Attending Unavailable Tate, Librado Referring Unavailable Tate, Librado Primary Care Unavailable Mony Cisneros Attending Unavailable Tate, Librado Primary Care Unavailable Mony Cisneros Attending Unavailable FlashanthonyMony Consulting Unavailable FlashanthonyMony Referring Unavailable Tate, Librado Referring Unavailable Friend, Erick Attending Unavailable Friend, Erick Consulting Unavailable Tate, Librado Primary Care Unavailable Tate, Librado Referring Unavailable Friend, Erick Attending Unavailable Tate, Librado Primary Care Unavailable Tate, Librado Primary Care Unavailable Raphael Kidd Attending Unavailable Tate, Librado Primary Care Unavailable Tate, Librado Referring Unavailable AtanasHali ferro Attending Unavailable Tate, Librado Referring Unavailable Tate, Librado Primary Care Unavailable MarcjuanonyMony Attending Unavailable Tate, Librado Referring Unavailable Tate, Librado Primary Care Unavailable MarcjuanonyMony Attending Unavailable Allergies Allergy Classification Reported Allergen(s) Allergy Type Date of Onset Reaction(s) Facility (10 sources) Citalopram; Translations: [citalopram hydrobromide] Drug Allergy 2 Hives [facility] Repository (9 sources) liraglutide Drug Allergy 2 Nausea/Vom/Diar reyna [facility] Work Phone: (9 sources) Morphine Drug Allergy 2 Itching [facility] Work Phone: (10 sources) Penicillins; Translations: [Penicillins] Allergy to substance 2 [facility] Repository (9 sources) Tetanus immune globulin Drug Allergy 2 [facility] Work Phone: (1 source) liraglutide Drug Allergy 5 [facility] Repository (1 source) Morphine Drug Allergy 5 [facility] Rep[facility] (1 source) Tetanus immune globulin Drug Allergy 5 [facility] Medications Current Medications Medication Drug Class(es) Dates Sig (Normalized) Sig (Original) azithromycin 250 mg oral tablet (1 source) Macrolide Antimicrobial Start: 10-04-2021 Azithromycin Active 250 MG PO daily October 04, 2021 12:00am 2 tablets today, then 1 tablet daily on days 2 through 5 busPIRone hydrochloride 7.5 mg oral tablet (2 sources) Start: 01-06-2022 take 7.5 mg by mouth once daily Buspirone Active 7.5 MG PO DAILY January 06, 2022 12:00am cholecalciferol 0.05 mg oral capsule (7 sources) Vitamin D Start: 10-30-2020 take 50 ug by mouth once daily Cholecalciferol (Vitamin D3) Active 50 MCG PO DAILY October 30, 2020 9:07am escitalopram 10 mg oral tablet (2 sources) Serotonin Reuptake Inhibitor Start: 01-06-2022 take 10 mg by mouth once daily Escitalopram Oxalate Active 10 MG PO DAILY January 06, 2022 12:00am ibuprofen 600 mg oral tablet (16 sources) Nonsteroidal Anti-inflammatory Drug Start: 01-18-2021 take 600 mg by mouth every eight hours Ibuprofen Active 600 MG PO Q8H January 18, 2021 10:31am Start: 09-17-2019 End: 03-06-2020 take 600 mg by mouth three times daily Ibuprofen Discontinued 600 MG PO THREE TIMES A DAY September 17, 2019 6:48pm March 06, 2020 4:39pm levothyroxine sodium 0.05 mg oral tablet (7 sources) l-Thyroxine Start: 06-17-2021 take 50 ug by mouth once daily Levothyroxine Active 50 MCG PO DAILY June 17, 2021 8:34am LORazepam 0.5 mg oral tablet (7 sources) Benzodiazepine Start: 01-10-2021 take 0.5 mg by mouth once daily Lorazepam Active 0.5 MG PO DAILY January 10, 2021 1:17pm mecobalamin 1 mg sublingual tablet (16 sources) Start: 10-30-2020 Mecobalamin (V itamin B12) Active 2500 MCG SL .M, W, F October 30, 2020 9:08am place tablet under tongue and allow to dissolve for at least30 secs before swallowing Start: 10-30-2020 End: 10-30-2020 Mecobalamin (Vitamin B12) Di scontinued 1000 MCG SL .M, W, F October 30, 2020 12:00am October 30, 2020 9:[address] place tablet under tongue and allow to dissolve for at least30 secs before swallowing Multivitamin preparation (7 sources) Start: 01-16-2021 take 1 tablet by mouth once daily Multivitamin Active 1 TABLET PO DAILY January 16, 2021 9:24am Start: 01-16-2021 take 1 tablet by bj th once daily Multivitamin Active 1 TABLET PO DAILY January 16, 2021 12:00am omeprazole 20 mg delayed release oral capsule (7 sources) Proton Pump Inhibitor Start: 10-26-2015 take 20 mg by mouth once daily Omeprazole Active 20 MG PO DAILY October 26, 2015 3:14pm sertraline 100 mg oral tablet (16 sources) Serotonin Reuptake Inhibitor Start: 03-06-2020 take 150 mg by mouth once daily Sertraline Active 150 MG PO DAILY March 06, 2020 4:38pm Start: 05-05-2019 End: 03-06-2020 take 100 mg by mouth once daily Sertraline Discontinued 100 MG PO DAILY May 05, 2019 1:00am March 06, 2020 4:40pm Completed/Discontinued Medications Medication Drug Class(es) Dates Sig (Normalized) Sig (Original) aspirin 81 mg delayed release oral tablet (9 sources) Platelet Aggregation Inhibitor, Nonsteroidal Anti-inflammatory Drug Start: 03-18-2018 End: 05-04-2018 Aspirin (Adult Low Dose Aspirin) 81 mg tablet,delayed release (DR/EC) Discontinued 81 MG PO DAILY March 18, 2018 1:00am May 04, 2018 10:22am calcium carbonate 1500 mg oral tablet (9 sources) Start: 09-27-2017 End: 03-18-2018 take 600 mg by mouth once daily Calcium Carbonate Discontinued 600 MG PO DAILY September 27, 2017 12:00am March 18, 2018 12:30pm cholecalciferol 2500 unt / folic acid 1 mg oral tablet (9 sources) Vitamin D Start: 09-12-2019 End: 03-06-2020 take 4000 [IU] by mouth once daily Vitamin D3-Folic Acid Discontinued 4000 UNIT PO DAILY September 12, 2019 12:00am March 06, 2020 4:39pm docusate sodium 100 mg oral capsule (18 sources) Start: 09-19-2019 End: 10-19-2019 take 100 mg by mouth twice daily Docusate Sodium Discontinued 100 MG PO TWICE A DAY September 19, 2019 12:00am October 19, 2019 12:02am Start: 06-07-2019 End: 03-06-2020 take 1 capsule by mouth once daily Docusate Sodium (Colace) 100 mg capsule Discontinued 100 MG PO DAILY June 07, 2019 12:00am March 06, 2020 4:38pm doxylamine succinate 25 mg oral tablet (18 sources) Start: 09-12-2019 End: 03-06-2020 take 25 mg by mouth at bedtime Doxylamine Succinate Discontinued 25 MG PO AT BEDTIME September 12, 2019 12:00am March 06, 2020 4:39pm Start: 09-27-2017 End: 03-18-2018 take 25 mg by mouth at bedtime Doxylamine Succinate Di scontinued 25 MG PO AT BEDTIME September 27, 2017 12:00am March 18, 2018 12:30pm 21 day ethinyl estradiol 0.432699 mg/hr / etonogestrel 0.005 mg/hr vaginal system (9 sources) Progestin, Estrogen Start: 10-30-2020 End: 01-10-2021 Etonogestrel-Ethinyl Estradiol (Nuvaring) 0.12-0.015 mg/24 hr ring Discontinued 1 VAG RING VAGINAL every 4 weeks October 30, 2020 12:00am January 10, 2021 1:17pm leave in place for 3 weeks of a 4-week cycle Iodine (Kelp) (9 sources) Start: 09-27-2017 End: 03-18-2018 take 150 ug by mouth once daily Iodine (Kelp) Discontinued 150 MCG PO DAILY September 27, 2017 1:39pm March 18, 2018 12:29pm Start: 09-27-2017 End: 03-18-2018 take 150 ug by mouth once daily Iodine (Kelp) Discontinued 150 MCG PO DAILY September 27, 2017 12:00am March 18, 2018 12:29pm Magnesium (9 sources) Start: 09-27-2017 End: 03-18-2018 take 500 mg by mouth once daily Magnesium Discontinued 500 MG PO DAILY September 27, 2017 1:39pm March 18, 2018 12:30pm Start: 09-27-2017 End: 03-18-2018 take 500 mg by mouth once daily Magnesium Discontinued 500 MG PO DAILY September 27, 2017 12:00am March 18, 2018 12:30pm metFORMIN hydrochloride 500 mg oral tablet (9 sources) Biguanide Start: 09-27-2017 End: 03-18-2018 take 500 mg by mouth once daily Metformin Discontinued 500 MG PO DAILY September 27, 2017 12:00am March 18, 2018 12:29pm methylPREDNISolone acetate 40 mg/ml injectable suspension (12 sources) Corticosteroid Start: 01-10-2021 End: 01-10-2021 Depo-Medrol (methylprednisolon e acetate) 40 mg/mL suspension for injection Discontinued 40 MG INTRAARTIC ONCE January 10, 2021 1:03pm January 10, 2021 1:31pm Start: 10-30-2020 End: 10-30-2020 Depo-Medrol (methylprednisol one acetate) 40 mg/mL suspension for injection Discontinued 40 MG INTRAARTIC ONCE October 30, 2020 8:54am October 30, 2020 9:50am ondansetron 4 mg disintegrating oral tablet (9 sources) Serotonin-3 Receptor Antagonist Start: 09-27-2017 End: 05-04-2018 take 4 mg by mouth every eight hours as needed Ondansetron Discontinued 4 MG PO EVERY 8 HOURS NEEDED September 27, 2017 12:00am May 04, 2018 10:22am oxyCODONE hydrochloride 5 mg oral tablet (18 sources) Opioid Agonist Start: 09-17-2019 End: 09-24-2019 take 5 mg by mouth every six hours as needed Oxycodone Discontinued 5 MG PO EVERY 6 HOURS NEEDED 28 7 September 17, 2019 September 24, 2019 12:02am Start: 05-02-2018 End: 05-09-2018 take 5 mg by mouth every six hours as needed Oxycodone Discontinued 5 MG PO EVERY 6 HOURS NEEDED 17 10May 02, 2018 1:00am May 09, 2018 1:08am traMADol hydrochloride 50 mg oral tablet (9 sources) Opioid Agonist Start: 05-03-2018 End: 05-04-2018 take 50 mg by mouth every six hours as needed Tramadol Discontinued 50 MG PO EVERY 6 HOURS NEEDED May 03, 2018 1:00am May 04, 2018 10:22am Problems Active Problems Problem Classification Problem Date Documented Date Episodic/Chronic Abdominal pain (20 sources) Pain in pelvis; Translations: [Pelvic and perineal pain] Episodic Acute bronchitis (6 sources) Acute bronchitis; Translations: [Acute bronchitis, unspecified] Episodic Anxiety disorders (10 sources) Anxiety; Translations: [Anxiety disorder, unspecified] Onset: 12-07-2024 Chronic Benign neoplasm of uterus (1 source) Other benign neoplasm of corpus uteri; Translations: [Other benign neoplasm of corpus uteri] Onset: 03-04-2024 Episodic Blindness and vision defects (9 sources) Eye / vision finding; Translations: [Unspecified visual disturbance] Episodic Cardiac dysrhythmias (9 sources) Tachycardia; Translations: [Tachycardia, unspecified] Episodic Conditions associated with dizziness or vertigo (9 sources) Dizziness; Translations: [Dizziness and giddiness] Episodic Diabetes mellitus without complication (9 sources) Diabetes mellitus; Translations: [Type 2 diabetes mellitus without complications] Chronic Esophageal disorders (10 sources) Gastroesophageal reflux disease; Translations: [Gastro-esophageal reflux disease without esophagitis] Onset: 10-11-2024 Chronic Headache; including migraine (9 sources) Headache; Translations: [Headache] Episodic Hypertension complicating ; childbirth and the puerperium (9 sources) Pre-eclampsia; Translations: [Unspecified pre-eclampsia, unspecified trimester] Episodic Immunizations and screening for infectious disease (7 sources) Patient encounter status; Translations: [Encounter for screening laboratory testing for COVID-19 virus] Episodic Malaise and fatigue (9 sources) Fatigue; Translations: [Chronic fatigue, unspecified] Chronic Malaise and fatigue (9 sources) Fatigue; Translations: [Other fatigue] Episodic Menstrual disorders (12 sources) Menometrorrhagia; Translations: [Excessive and frequent menstruation with irregular cycle] Onset: 03-04-2024 Chronic Mood disorders (11 sources) Depressive disorder; Translations: [Depression] Onset: 12-07-2024 Chronic Other bone disease and musculoskeletal deformities (20 sources) Segmental and somatic dysfunction; Translations: [Segmental and somatic dysfunction of cervical region] Episodic Other circulatory disease (9 sources) Elevated blood-pressure reading without diagnosis of hypertension; Translations: [Elevated blood-pressure reading, without diagnosis of hypertension] Episodic Other complications of ; puerperium affecting management of mother (9 sources) delivery - delivered; Translations: [Encounter for delivery without indication] Episodic Other connective tissue disease (9 sources) Biceps tendinitis; Translations: [Bicipital tendinitis, left shoulder] Episodic Other connective tissue disease (9 sources) Tendinitis of left rotator cuff; Translations: [Other shoulder lesions, left shoulder] Episodic Other female genital disorders (1 source) Abnormal uterine and vaginal bleeding, unspecified; Translations: [Abnormal uterine and vaginal bleeding, unspecified] Onset: 01-21-2025 Chronic Other female genital disorders (9 sources) Polyp of corpus uteri; Translations: [Polyp of corpus uteri] Episodic Other lower respiratory disease (9 sources) Dyspnea; Translations: [Dyspnea, unspecified] Episodic Other nervous system disorders (9 sources) Pain in limb - multiple; Translations: [Paresthesia of skin] Episodic Other non-traumatic joint disorders (1 source) Polyarthritis, unspecified; Translations: [Polyarthritis, unspecified] Onset: 07-22-2024 Chronic Other and delivery including normal (9 sources) First trimester ; Translations: [Encounter for supervision of normal , unspecified, first trimester] Episodic Other screening for suspected conditions (not mental disorders or infectious disease) (1 source) Encounter for screening mammogram for malignant neoplasm of breast; Translations: [Encounter for screening mammogram for malignant neoplasm of breast] Onset: 01-21-2025 Episodic Other upper respiratory infections (9 sources) Acute upper respiratory infection; Translations: [Acute upper respiratory infection, unspecified] Episodic Residual codes; unclassified (1 source) Hypersomnia, unspecified; Translations: [Hypersomnia, unspecified] Onset: 12-07-2024 Chronic Residual codes; unclassified (9 sources) Gestation period, 37 weeks; Translations: [37 weeks gestation of ] Episodic Residual codes; unclassified (1 source) Acquired absence of both cervix and uterus; Translations: [Acquired absence of both cervix and uterus] Onset: 01-21-2025 Episodic Residual codes; unclassified (1 source) Acquired absence of other genital organ(s); Translations: [Acquired absence of other genital organ(s)] Onset: 01-21-2025 Episodic Spondylosis; intervertebral disc disorders; other back problems (9 sources) Neck pain; Translations: [Cervicalgia] Episodic Sprains and strains (18 sources) Strain of neck muscle; Translations: [Strain of muscle, fascia and tendon at neck level, initial encounter] Episodic Thyroid disorders (18 sources) Multinodular goiter; Translations: [Nontoxic multinodular goiter] Chronic Viral infection (9 sources) Disease caused by 2019-nCoV; Translations: [COVID-19] Episodic Past or Other Problems Problem Classification Problem Date Documented Da te Episodic/Chronic Deficiency and other anemia (1 source) Anemia, unspecified; Translations: [Anemia, unspecified] Onset: 06-07-2024 Episodic Genitourinary symptoms and ill-defined conditions (1 source) Frequency of micturition; Translations: [Frequency of micturition] Onset: 09-03-2024 Episodic Nausea and vomiting (11 sources) Nausea, vomiting and diarrhea; Translations: [Nausea with vomiting, unspecified] Onset: 06-07-2024 Episodic Other gastrointestinal disorders (2 sources) Diarrhea, unspecified; Translations: [Diarrhea, unspecified] Onset: 06-07-2024 Episodic Residual codes; unclassified (2 sources) Family history of malignant neoplasm of digestive organs; Translations: [Family history of malignant neoplasm of digestive organs] Onset: 06-07-2024 Episodic Residual codes; unclassified (1 source) Other general symptoms and signs; Translations: [Other general symptoms and signs] Onset: 05-31-2024 Episodic Results Test Name Value Interpretation Reference Range Facility Marketing Programs Specialist Office Visit Reporton 01-21-2025 Marketing Programs Specialist Office Visit Report [facility] [address], [address] [place] [address] OFFICE VISIT Date of Service: 01/21/25 MR#: [id number] Acct: [id number] Name: BEATRICE BORREGO Rep #: [id number] : 1985 Provider: Dr. Mony hinojosa MD Age/Sex: 39/F [place] [facility] Status: Signed Intake Vital Signs 01/18/25 07:55 01/21/25 11:55 01/21/25 11:56 Height 5 ft 4 in 5 ft 4 in 5 ft 4 in Weight: 209 lb 1 oz BMI 35.9 BP 125/85 H Pulse 81 Temp 98.4 F Temperature Source Oral Intake Visit Reasons: incision check/possible infection/JV Property Management Supervisor Required: No Is patient in pain?: Yes (pelvic pain, 3 days post op) Allergies citalopram hydrobromide (From Celexa) Allergy (Verified 01/21/25 11:56) Hives Penicillins (PCN) Allergy (Verified 01/21/25 11:56) Hives tetanus immune globulin Allergy (Verified 01/21/25 11:56) Hives liraglutide (From Victoza) Adverse Reaction (Verified 01/21/25 11:56) Nausea/Vom/Diarrhea morphine Adverse Reaction (Verified 01/21/25 11:56) Itching Medications ???Medication ???Instructions ???Recorded ???Confirmed ???Type Lactobacillus acidophilus 250 500 mmu cells PO DAILY 05/20/24 History million cell capsule (Probiotic Acidophilus) cholecalciferol (vitamin D3) 50 50 mcg PO DAILY 05/20/24 01/21/25 History mcg (2,000 unit) capsule (Vitamin D3) omega 4-kvr-pxc-fish oil 1,200 mg 1 cap PO DAILY 05/20/24 01/21/25 History (144 mg-216 mg) capsule (Fish Oil) ibuprofen 200 mg tablet (Advil) 800 mg PO Q6H PRN pain 07/20/24 History cyclobenzaprine 10 mg tablet 10 mg PO TID PRN muscle spasm #30 07/27/24 01/21/25 Rx tabs omeprazole 40 mg capsule,delayed 40 mg PO BID 90 days #180 caps 01/21/25 Rx release ondansetron 4 mg disintegrating 4 mg PO Q8H PRN nausea and 5 01/21/25 Rx tablet vomiting #30 tabs mecobalamin (vitamin B12) 500 mcg 2,500 mcg PO DAILY 10/22/2401/21 History chewable tablet bupropion HCl 150 mg 24 hr tablet, 150 mg PO QAM #90 TABLETS 01/21/25 Rx extended release escitalopram oxalate 10 mg tablet 15 mg (1.5 x 10 mg) PO QHS 90 day s 12/06/24 01/21/25 Rx #135 tabs lorazepam 0.5 mg tablet 0.5 mg PO DAILY PRN anxiety #30 01/21/25 Rx tabs naproxen 500 mg tablet 500 mg PO BID PRN PRN Pain #30 tab s 01/21/25 01/21/25 Rx oxycodone-acetaminophen 5 mg-325 1 tab PO Q4H PRN pain 7 days #20 1 01/21/25 Rx mg tablet (Percocet) tabs Post menopausal: No Patient : No : No PFSH Medical History Hyperplasia of endometrium determined by biopsy Frequency of urination Back pain Colonoscopy planned Former smoker History of Holter monitoring Carpal tunnel syndrome Flu-like symptoms Vapes nicotine containing substance CPAP (continuous positive airway pressure) dependence Hypersomnia Major depressive disorder Encounter for screening laboratory testing for COVID-19 virus Acute bronchitis, unspecified Wears contact lenses Wears glasses Depression Anxiety Gastric reflux History of echocardiogram Cardiology follow-up encounter Hx of pilonidal cyst delivery delivered Surgical History Status post bilateral salpingectomy S/P laparoscopic assisted vaginal hysterectomy (LAVH) H/O esophagogastroduodenoscop y H/O dilation and curettage History of hysteroscopy Previous section H/O repair of right rotator cuff History of appendectomy Hx of cholecystectomy History of tonsillectomy Family History Mother Hypertension High cholesterol Alcoholism Arthritis Depression Sister Thyroid cancer Depression Colon cancer Arthritis Autoimmune disorder Thyroid disorder Father Alcoholism Anxiety Depression Myocardial infarction Psychiatric care Grandfather Lung cancer Aunt Esophageal cancer Social History household members: spouse and children housing: house number of children: 2 current occupational status: employed current occupation: [employer] pets and animals: Yes pets and animals: dog(s) Smoking Status: Former smoker alcohol intake: current substance use type: does not use what type of physical activity do you participate in: walking and weight training frequency: 3-4 times per week do you feel safe at home: Yes additional social history: Elias GOLDEN incision check/possible infection/JV Details: BEATRICE BORREGO is a 39 year old who presents for postop due to echymoses at left incision and crmaping. she has had elevated temps at 99 but no overt fevers. some pain but overal (more content not included)... Normal [facility] Hepatitis B Core Ab Totalon 01-20-2025 HEP B CORE,TOT Negative Normal Negative [facility] Comment on above: Order Comment: Has p t arrived? Y Result Comment: Perf ormed at: [facility] [address] [id number] Asbestos Siding Installer: Dany White PhD, Phone: [phone] Performed By: #### L [id number], L3100.0460, L3890.6006, L3890.6301, L3890.6202 #### [facility] [address] [place], [place], [id number] CBC-Complete Blood Cnt No Di ffon 01-19-2025 HCT Normal 37-47 [facility] Comment on above: Result Comment: Canc elled via OM: Order cancelled - Patient discharged Performed By: #### L [id number], L3100.0460, L3890.6006, L3890.6301, L3890.6202 #### [facility] [address] [place], [place], [id number] HGB Normal 12.0-15.0 [facility] Comment on above: Result Comment: Canc elled via OM: Order cancelled - Patient discharged Performed By: #### L [id number], [id number], L3890.6006, L3890.6301, L3890.6202 #### [facility] [address] [place], [address] MCH Normal 27.0-32.0 [facility] Comment on above: Result Comment: Canc elled via OM: Order cancelled - Patient discharged Performed By: #### L [id number], [id number], L3890.6006, L3890.6301, [id number] #### [facility] [address] [place], [address] MCHC Normal 32-36 [facility] Comment on above: Result Comment: Canc elled via OM: Order cancelled - Patient discharged Performed By: #### L [id number], [id number], L3890.6006, L3890.6301, [id number] #### [facility] [address] [place], [address] MCV Normal 81-99 [facility] Comment on above: Result Comment: Canc elled via OM: Order cancelled - Patient discharged Performed By: #### L 3890.6102, L3100.0460, L3890.6006, L3890.6301, L3890.6202 #### [facility] [address] [place], [address] PLT Normal 150-450 [facility] Comment on above: Result Comment: Canc elled via OM: Order cancelled - Patient discharged Performed By: #### L 3890.6102, L3100.0460, L3890.6006, L3890.6301, L3890.6202 #### [facility] [address] [place], [address] RBC Normal 4.2-5.4 [facility] Comment on above: Result Comment: Canc elled via OM: Order cancelled - Patient discharged Performed By: #### L 3890.6102, L3100.0460, L3890.6006, L3890.6301, L3890.6202 #### [facility] [address] [place], [address] RDW CV Normal 11.6-14.6 [facility] Comment on above: Result Comment: Canc elled via OM: Order cancelled - Patient discharged Performed By: #### L 3890.6102, L3100.0460, L3890.6006, L3890.6301, L3890.6202 #### [facility] [address] [place], [address] RDW SD Normal 35.1-43.9 [facility] Comment on above: Result Comment: Canc elled via OM: Order cancelled - Patient discharged Performed By: #### L 3890.6102, L3100.0460, L3890.6006, L3890.6301, L3890.6202 #### [facility] [address] [place], [address] WBC Normal 4.4-11.0 [facility] Comment on above: Result Comment: Canc elled via OM: Order cancelled - Patient discharged Performed By: #### L 3890.6102, L3100.0460, L3890.6006, L3890.6301, L3890.6202 #### [facility] [address] [place], [address] 12 Lead EKGon 01-18-2025 12 Lead EKG [facility] Cardiovascular Services [address] [place] [address] 12 Lead EKG 01/18/25 0739 MR#: [id number] Acct: [id number] Name: BEATRICE BORREGO Rep #: [id number] : 1985 39 From: Lambert Rojo MD Attending Dr: Dr. Mony Cisneros MD Status: REG [facility] Ordering Dr: Herbert Hair MD Date: 01/18/25 Location: AC Sex: F C Admitted: Test Reason : pre op Blood Pressure : */* mmHG Vent. Rate : 79 BPM Atrial Rate : 79 BPM P-R Int : 166 ms QRS Dur : 94 ms QT Int : 376 ms P-R-T Axes : 33 2 16 degrees QTcB Int : 431 ms Normal sinus rhythm Nonspecific T wave abnormality Abnormal ECG When compared with ECG of 21-Jul-2020 11:10, No significant change was found Confirmed by Lambert Rojo ([id number]), marketing editor [employer] ([id number]) on 01/18/2025 12:49:18 PM Referred By: Mony Cisneros Confirmed By: Lambert Rojo 01/18/25 1249 Date Lambert Rojo MD CC: Dr. Herbert Hair MD; Dr. Librado Ybarra DO; Dr. Mony Cisneros MD Signed Normal [facility] Bedside Glucoseon 01-18-2025 FINGERSTICK GLU 85 mg/dL Normal 74-106 [facility] Comment on above: Result Comment: KAREL PILLOENT OF PATIENT CARE PER NURSING PROTOCOL Performed By: #### L 501.080 #### [facility] [address] [place], [address] CBC W/Diff, Automatedon 12-30 Absolute Lymph 1.17 X10 3/uL Normal 0.83-4.51 [facility] Comment on above: Performed By: #### L 3890.6102, L3100.0460, L3890.6006, L3890.6301, L3890.6202 #### [facility] [address] [place], [address] Absolute Neut 11.6 X10 3/uL High 2.0-7.7 [facility] Comment on above: Performed By: #### L 3890.6102, L3100.0460, L3890.6006, L3890.6301, L3890.6202 #### [facility] [address] [place], [address] Basophils/100 WBC (Bld) 0.3 % Normal 0-[address] [facility] Comment on above: Performed By: #### L 3890.6102, L3100.0460, L3890.6006, L3890.6301, L3890.6202 #### [facility] [address] [place], [address] Eosinophils/100 WBC (Bld) 0.2 % Normal 0-5 [facility] Comment on above: Performed By: #### L 3890.6102, L3100.0460, L3890.6006, L3890.6301, L3890.6202 #### [facility] [address] [place], [address] Erythrocyte distribution width (RBC) [Ratio] 11.9 % Normal 11.6-14.6 [facility] Comment on above: Performed By: #### L 3890.6102, L3100.0460, L3890.6006, L3890.6301, L3890.6202 #### [facility] [address] [place], [address] Hematocrit (Bld) [Volume fraction] 35.8 % Low 37-47 [facility] Comment on above: Performed By: #### L 3890.6102, L3100.0460, L3890.6006, L3890.6301, L3890.6202 #### [facility] [address] [place], [address] Hemoglobin (Bld) [Mass/Vol] 12.7 g/dL Normal 12.0-15.0 [facility] Comment on above: Performed By: #### L 3890.6102, L3100.0460, L3890.6006, L3890.6301, L3890.6202 #### [facility] [address] [place], [address] IG% 0.300 Normal 0.0-0.9 [facility] Comment on above: Result Comment: IG% - Immature Granulocytes (promyelocytes, myelocytes and metamyelocytes) > 1% indicates that a LEFT SHIFT is Present. Performed By: #### L 3890.6102, L3100.0460, L3890.6006, L3890.6301, L3890.6202 #### [facility] [address] [place], [address] Lymphocytes/100 WBC (Bld) 9.0 % Low 19-41 [facility] Comment on above: Performed By: #### L 3890.6102, L3100.0460, L3890.6006, L3890.6301, L3890.6202 #### [facility] [address] [place], [address] MCH (RBC) [Entitic mass] 29.8 pg Normal 27.0-32.0 [facility] Comment on above: Performed By: #### L 3890.6102, L3100.0460, L3890.6006, L3890.6301, L3890.6202 #### [facility] [address] [place], [address] MCHC (RBC) [Mass/Vol] 35.5 g/dL Normal 32-36 [facility] Comment on above: Performed By: #### L 3890.6102, L3100.0460, L3890.6006, L3890.6301, L3890.6202 #### [facility] [address] [place], [address] MCV (RBC) [Entitic vol] 84.0 fL Normal 81-[address] [facility] Comment on above: Performed By: #### L 3890.6102, L3100.0460, L3890.6006, L3890.6301, L3890.6202 #### [facility] [address] [place], [address] Monocytes/100 WBC (Bld) 0.8 % Normal 0-[address] [facility] Comment on above: Performed By: #### L 3890.6102, L3100.0460, L3890.6006, L3890.6301, L3890.6202 #### [facility] [address] [place], [address] Neutrophils/100 WBC (Bld) 89.4 % High 47-70 [facility] Comment on above: Performed By: #### L 3890.6102, L3100.0460, L3890.6006, L3890.6301, L3890.6202 #### [facility] [address] [place], [address] Nucleated RBC (Bld) [#/Vol] 0 10*3/uL Normal 0-5 [facility] Comment on above: Performed By: #### L 3890.6102, L3100.0460, L3890.6006, L3890.6301, L3890.6202 #### [facility] [address] [place], [address] Platelet mean volume (Bld) [Entitic vol] 10.4 fL Normal 6.2-12.0 [facility] Comment on above: Performed By: #### L 3890.6102, L3100.0460, L3890.6006, L3890.6301, L3890.6202 #### [facility] [address] [place], [address] Platelets (Bld) [#/Vol] 238 10*3/uL Normal 150-450 [facility] Comment on above: Performed By: #### L 3890.6102, L3100.0460, L3890.6006, L3890.6301, L3890.6202 #### [facility] [address] [place], [address] RBC (Bld) [#/Vol] 4.26 10*6/uL Normal 4.2-5.4 [facility] Comment on above: Performed By: #### L 3890.6102, L3100.0460, L3890.6006, L3890.6301, L3890.6202 #### [facility] [address] [place], [address] RDW SD 35.8 fl Normal 35.1-43.9 [facility] Comment on above: Performed By: #### L 3890.6102, L3100.0460, L3890.6006, L3890.6301, L3890.6202 #### [facility] [address] [place], [address] WBC (Bld) [#/Vol] 13.0 10*3/uL High 4.4-11.0 [facility] Comment on above: Performed By: #### L 3890.6102, L3100.0460, L3890.6006, L3890.6301, L3890.6202 #### [facility] [address] [place], [address] CBC-Complete Blood Cnt No Di ffon 01-18-2025 Erythrocyte distribution width (RBC) [Ratio] 11.8 % Normal 11.6-14.6 [facility] Comment on above: Performed By: #### L 3890.6102, L3100.0460, L3890.6006, L3890.6301, L3890.6202 #### [facility] [address] [place], [address] Hematocrit (Bld) [Volume fraction] 37.1 % Normal 37-47 [facility] Comment on above: Performed By: #### L 3890.6102, L3100.0460, L3890.6006, L3890.6301, L3890.6202 #### [facility] [address] [place], [address] Hemoglobin (Bld) [Mass/Vol] 13.2 g/dL Normal 12.0-15.0 [facility] Comment on above: Performed By: #### L 3890.6102, L3100.0460, L3890.6006, L3890.6301, L3890.6202 #### [facility] [address] [place], [address] MCH (RBC) [Entitic mass] 30.0 pg Normal 27.0-32.0 [facility] Comment on above: Performed By: #### L 3890.6102, L3100.0460, L3890.6006, L3890.6301, L3890.6202 #### [facility] [address] [place], [address] MCHC (RBC) [Mass/Vol] 35.6 g/dL Normal 32-36 [facility] Comment on above: Performed By: #### L 3890.6102, L3100.0460, L3890.6006, L3890.6301, L3890.6202 #### [facility] [address] [place], [address] MCV (RBC) [Entitic vol] 84.3 fL Normal 81-[address] [facility] Comment on above: Performed By: #### L 3890.6102, L3100.0460, L3890.6006, L3890.6301, L3890.6202 #### [facility] [address] [place], [address] Platelet mean volume (Bld) [Entitic vol] 10.2 fL Normal 6.2-12.0 [facility] Comment on above: Performed By: #### L 3890.6102, L3100.0460, L3890.6006, L3890.6301, L3890.6202 #### [facility] [address] [place], [address] Platelets (Bld) [#/Vol] 230 10*3/uL Normal 150-450 [facility] Comment on above: Performed By: #### L 3890.6102, L3100.0460, L3890.6006, L3890.6301, L3890.6202 #### [facility] [address] [place], [address] RBC (Bld) [#/Vol] 4.40 10*6/uL Normal 4.2-5.4 [facility] Comment on above: Performed By: #### L 3890.6102, L3100.0460, L3890.6006, L3890.6301, L3890.6202 #### [facility] [address] [place], [address] RDW SD 36.0 fl Normal 35.1-43.9 [facility] Comment on above: Performed By: #### L 3890.6102, L3100.0460, L3890.6006, L3890.6301, L3890.6202 #### [facility] [address] [place], [address] WBC (Bld) [#/Vol] 7.6 10*3/uL Normal 4.4-11.0 [facility] Comment on above: Performed By: #### L 3890.6102, L3100.0460, L3890.6006, L3890.6301, L3890.6202 #### [facility] [address] [place], [address] Discharge Instructionon 12-30 Discharge Instruction [facility] Medical Records Department [address] [place] [address] Instructions for Home/Discharge Instructions 01/18/25 1229 MR#: [id number] Acct: [id number] Name: BEATRICE BORREGO Rep #: [id number] : 1985 39 From: Mony Cisneros MD PCP: Dr. Librado Ybarra, DO Status:REG SDC Discharge Instructions DC O2, CPAP, BIPAP needs Home O2 Discharge instructions: No Dressing / Incision May resume sexual activity in: 6 weeks Weight Bearing Status: Full weight bearing Dressing / Incision Call your doctor if your incision/area has: Continuous Slow Oozing, Sudden Increased Bleeding, Increased Pain/ Swelling, Increased Redness and Foul Smelling Discharge Call your doctor if you observe: Fever of 101 or Higher, Using more than 1 pad per hour, Shortness of breath, Chest pain and Uncontrolled pain Suture Line Care: Avoid Pulling/Pushing and Avoid Pinching/Bending Remove Dressing in: 1 week (if present) Cleanse incision/area with: Soap Water and Keep Dressing Clean Dry Follow Up Care Please Follow Up With: Mony Cisneros MD When: Call to make an appointment with your doctor for a postop visit in 2 and 6 weeks. Test Results: Test results from this visit will be discussed in further detail at your follow-up appointment, if applicable. Discharge Plan Admission Attending Provider: Mony Cisneros Primary Care Provider: Librado Ybarra Instructions Print Language: Mohawk Discharge Orders/Prescriptions Prescriptions: No Action mecobalamin (vitamin B12) 500 mcg tablet,chewable 2,500 mcg PO DAILY escitalopram oxalate 10 mg tablet 15 mg PO QHS 90 Days Qty: 135 1RF Rx Instructions: TAKE 1.5 TABLET BY MOUTH ONCE DAILY bupropion HCl 150 mg tablet extended release 24 hr 150 mg PO QAM Qty: 90 1RF lorazepam 0.5 mg tablet 0.5 mg PO DAILY PRN (Reason: anxiety) Qty: 30 1RF omega 2-hfk-khj-fish oil [Fish Oil] 1,200 (144-216) mg capsule 1 cap PO DAILY Probiotic Acidophilus 250 million cell capsule 500 mmu cells PO DAILY cholecalciferol (vitamin D3) [Vitamin D3] 50 mcg (2,000 unit) capsule 50 mcg PO DAILY ibuprofen [Advil] 200 mg tablet 800 mg PO Q6H PRN (Reason: pain) cyclobenzaprine 10 mg tablet 10 mg PO TID PRN (Reason: muscle spasm) Qty: 30 2RF omeprazole 40 mg capsule,delayed release(DR/EC) 40 mg PO BID 90 Days Qty: 180 3RF ondansetron 4 mg tablet,disintegrating 4 mg PO Q8H PRN (Reason: nausea and vomiting) Qty: 30 2RF Referrals / Follow Up: Librado Ybarra DO [Primary Care Provider, Family Practice] Disposition Disposition (needs filled in before D/C Order can be placed): Home, Self Care 01/18/25 1224 Mony Cisneros MD CC: Dr. Librado Ybarra DO Signed Normal [facility] HIVon 01-18-2025 HIV Non-Reactive Normal Nonreactive [facility] Comment on above: Order Comment: Reaso n for Exam: exposure Result Comment: Non- Reactive Reactive Repeatedly reactive samples must be confirmed according to CDC recommended confirmatory algorithms. The subresults for either HIVAG or AHIV can be used as an aid in the selection of the confirmation algorithm for reactive samples. Send out specimens with Reactive results to [facility] for confirmation. Order the HIV antibody detection and differentiation: [id number] Performed By: #### L 3890.6102, L3100.0460, L3890.6006, L3890.6301, L3890.6202 #### [facility] [address] [facility] [place], [place], [address] Hepatitis B Surface Antibody on 01-18-2025 HEP B Surf Ab REAC Normal [facility] Comment on above: Result Comment: <8.5 mIU/mL: Non-Reactive 8.5<= x <11.5 mIU/mL: Indeterminate >=11.5 mIU/mL: Reactive Non Reactive: Inconsistent with immunity less than <10 mIU/mL Reactive: Consistent with immunity greater than or equal to 10 mIU/mL Performed By: #### L 3890.6102, L3100.0460, L3890.6006, L3890.6301, L3890.6202 #### [facility] [address] [place] [place], [address] Hepatitis C Antibodyon 01-18 Hepatitis C Ab Non-Reactive Normal Nonreactive [facility] Comment on above: Order Comment: Reaso n for Exam: exposure Result Comment: Reac tive: Presumptive evidence of antibodies to HCV. Follow CDC recommendations for supplemental testing. Non-Reactive: Antibodies to HCV were not detected; does not exclude the possibility of exposure to HCV Reactive Results are presumptive evidence of antibodies to HCV. Follow CDC recommendations for supplemental testing. Order confirmation testing: HCV Quant by PCR testing - HCVPCR #[id number] Non Reactive: < 0.8 Equivocal: >/= 0.8 to < 1.0 Reactive: >/= 1.0 The [facility] requires that a reactive/equivocal HCV antibody result be sent out for confirmation. HCV Quant by PCR testing. Performed By: #### L 3890.6102, L3100.0460, L3890.6006, L3890.6301, L3890.6202 #### [facility] [address] [place], [address] L3890.6102on 01-18-2025 HEP B Surf Ag Non-Reactive Normal Nonreactive [facility] Comment on above: Order Comment: Reaso n for Exam: exposure Result Comment: Reac tive: Presumptive evidence of HBV. Repeatedly reactive samples must be confirmed using a neutralization test ([employer] HBsAg Confirmatory Test) Non-Reactive: HBsAg not detected; does not exclude the possibility of exposure to HBV Performed By: #### L 3890.6102, L3100.0460, L3890.6006, L3890.6301, L3890.6202 #### [facility] [address] [place], [place], [address] MR/POSTOP.ANEon 01-18-2025 MR/POSTOP.ANE [facility] Medical Records Department [address] [place] [address] Anesthesia Postop Eval I 01/18/25 1240 MR#: [id number] Acct: [id number] Name: BEATRICE BORREGO Rep #: [id number] : 1985 39 From: Michael Dc CRNA PCP: Dr. Librado Ybarra, DO Status:REG SDC Y Race: C Location: [place] [address] Anesthesia: Postop Eval I Current Vital Signs Temperature: 96.8 F Pulse Rate: 90 Blood Pressure: 139/85 Respiratory Rate: 20 Pulse Ox: 95 Oxygen Delivery Method: Nasal Cannula Oxygen Flow Rate (L/min): 4 Assessment Airway patent: Yes Spontaneous unlabored respirations: Yes Mental status: Awake and Calm nausea: No Vomiting: No Anesthesia Complication: No Fluid Hydration Crystalloid volume administer (ml): 1,800 Total IV fluid infused: 1,800 Progress Note Anesthesia document: Postop Eval 1 completed: Yes 01/18/25 1241 Date Michael Dc DIRECTOR OF CONTRACTS Cosigner Signature: Date CC: Signed Normal [facility] MR/[id number] 01-18-2025 /[facility] Medical Records Department [address] [place] [address] Anesthesia Postop Eval II 01/18/25 1737 MR#: [id number] Acct: [id number] Name: BEATRICE BORREGO Rep #: [id number] : 1985 39 From: Michael Dc CRNA PCP: Dr. Librado Ybarra, DO Status:[facility] [place] [place] Y Race: C Location: [facility] Anesthesia Postop Eval I Sum Postop Eval Completion status Anesthesia document: Postop Eval 1 completed: Yes Anesthesia Postop Eval I Summary Anesthesia Postop Eval I Summary: Anesthesia Postop Eval I: Assessment Summary Airway patent Yes 01/18/25 12:41 DIRECTOR OF CONTRACTS.PKEL Spontaneous unlabored Yes 01/18/25 12:41 DIRECTOR OF CONTRACTS.PKEL respirations Mental status Awake,Calm 01/18/25 12:41 DIRECTOR OF CONTRACTS.PKEL nausea No 01/18/25 12:41 DIRECTOR OF CONTRACTS.PKEL Vomiting No 01/18/25 12:41 DIRECTOR OF CONTRACTS.PKEL Anesthesia Postop Eval I: Fluid Summary Crystalloid volume administer 1,800 01/18/25 12:41 DIRECTOR OF CONTRACTS.PKEL (ml) Colloids volume administered ( ml) Blood Product volume administered (ml) Total IV fluid infused 1,800 01/18/25 12:41 DIRECTOR OF CONTRACTS.OPAL Anesthesia Postop Eval I: Summary Notes Anesthesia Complication No 01/18/25 12:41 DIRECTOR OF CONTRACTS.PKEL Anesthesia Complication Comment: Post-operative progress note Anesthesia: Postop Eval II Evaluation Mental status: Awake and Calm Pain Level: 0 nausea: No Vomiting: No Complications Anesthesia Complication: No 01/18/25 1738 Date Michael Dc DIRECTOR OF CONTRACTS Cosigner Signature: Date CC: Signed Normal [facility] Operative Reporton Operative Report [facility] Medical Records Department [address] [place] [address] Operative Report 01/18/25 1223 MR#: [id number] Acct: [id number] Name: BEATRICE BORREGO Rep #: [id number] : 1985 39 From: Mony Cisneros MD PCP: Dr. Librado Ybarra, DO Status:[facility] Location: [place] [address] Procedures Urinary/Genital 52xxx-59xxx: [address] LAVH+BS/O <250gr Uterus Operative Report (Standard) Operative Information Date of Procedure: 01/18/25 Pre-Operative Diagnosis: fibroid aub chronic pelvic pain Post-Operative Diagnosis: same Surgery/Procedure Performed: laparoscopic assisted vaginal hysterectomy bilateral salpingectomy chute builder: Yes Freelance Makeup Artist: Dionisio Gresham Tasks completed by or first assist registered nurse: Opening closing, Trocar and Retracting Additional night assistant?: No Type of Anesthesia: General RN Documented Start/Stop Times: Operation Date: 01/18/25 09:30 Case Time Into Pre-Op 01/18/25 07:29 Out of Pre-Op 01/18/25 09:43 Anesthesia Start 01/18/25 09:49 Into Room 01/18/25 09:49 Procedure Start 01/18/25 10:22 Procedure Start Time: : Procedure Stop Time: 12:20 Select all DRAINS/GRAFTS/IMPLANTS that apply: Drains (nobles) Drain details: nobles in place during case removed at conclusion Estimated Blood Loss: 300 Fluids Replaced: crystalloid Specimen collected: Yes Description of specimen(s) removed: uterus and tubes Description of surgery: Patient received preoperative antibiotics and SCDs were on preoperatively. Patient was taken back to the operating room and placed in the dorsal lithotomy position. General anesthesia was induced and patient was prepped and draped in normal sterile fashion. Uterine manipulator was placed inside the uterus and Nobles catheter placed in the bladder. The umbilicus was grasped with towel clamps and an intraumbilical incision was made after injecting with quarter percent Marcaine and a Veress needle entered into the abdomen confirmed to be intra-abdominal with a low opening pressure. Abdomen was insufflated with CO2 gas and the Veress needle removed and the 5 mm trocar was placed under direct visualization without complication. Right and left lower quadrants were transilluminated and injected with quarter percent Marcaine and 5 mm ports placed under direct visualization. Pelvis was well visualized see operative findings for additional information. Bilateral fallopian tubes were identified and transected with the LigaSure device across the mesosalpinx to the level of the utero-ovarian ligament which was also transected with the LigaSure device. The broad ligament was opened up by transecting the round ligament bilaterally and skeletonizing the uterine vessels bilaterally, and then creating a bladder flap using the LigaSure device. dense vesicouterine adhesions were seen and taken down with the ligasure and with hydrodissection, approximatley 25 minutes were devoted to this. The uterine arteries were transected bilaterally with good visualization of the bladder and the ureters were seen to be inferior lateral to the operative area. Attention was then paid to the vaginal portion of the procedure and the cervix was grasped with Hector clamps and circumferentially injected with dilute vasopressin. A circumferential incision was made and the vaginal mucosa was mobilized off posteriorly and the cul-de-sac entered into sharply and a longneck speculum placed. The anterior cul-de-sac was then identified and entered into sharply. The uterosacral ligaments were clamped cut and suture ligated with 0 Monocryl bilaterally followed by the cardinal ligaments which were clamped cut and suture ligated bilaterally with 0 Monocryl. The uterus serially descended and was removed without difficulty with minimal morcellation. Pelvic sidewall pedicles were checked and noted to have excellent hemostasis after 2 additional sutures were placed in the cuff. The vaginal mucosa was reapproximated incorporating the posterior peritoneum. This was reapproximated using 0 Vicryl gyiykq-ho-crdny sutures. Excellent hemostasis was noted. Attention paid to the abdominal portion of the procedure again. The pelvis and cul-de-sac was well visualized and no significant active bleeding noted. Pressure was taken down and the areas visualized and noted of excellent hemostasis. a small abrasion was seen near the sigmoid colon from trauma from the speculum but it was hemostatic and did not appear to compromise any integrity of the bowel serosa. All ports were removed under direct visualization without complication and the abdomen was desufflated of air. The instruments removed from the abdomen and the vagina, vaginal sweep was negative. Port sites on the abdomen were closed with 4-0 Monocryl interrupted sutures and Steri's and windows were applied. a chronic blackhead was noted on the abdomen and this was evacuated with (more content not included)... Normal [facility] ,Urineon 01-18-2025 Beta HCG ( test) Ql (U) Negative Normal [facility] Comment on above: Result Comment: Very dilute urine specimens, as indicated by a low specific gravity, may not contain customer support representative levels of hCG. If is still suspected, a first morning urine specimen should be collected 48 hours later and tested. Performed By: #### L 3890.6102, L3100.0460, L3890.6006, L3890.6301, L3890.6202 #### [facility] [place], [address] Surgery Specimen Level Von 1 Surgery Specimen Level V Patient Age/Sex Location Account Attending Physician ANHBEATRICE LARKIN 39/F [facility] [id number] Dr. Mony Cisneros MD Specimen: [id number] Received: 01/18/25 Status: IFRAH Nunezmagdiel Num: [id number] Spec Type: UTERUS Subm Dr: Dr. Mony Cisneros MD HEADER OPERATION: ERAS, hysterectomy, LAVH, bilateral salpingectomy PRE-OP DIAGNOSIS: Abnormal uterine bleeding, chronic pelvic pain in female, fibroid TISSUE SUBMITTED: A- Uterus, cervix, bilateral fallopian tubes MICROSCOPIC DIAGNOSIS A. Uterus, cervix, bilateral fallopian tubes: Hysterectomy, LAVH, bilateral salpingectomy: Cervix: Benign squamous epithelium and endocervical glandular tissue Endometrium: Proliferative endometrium Myometrium: Focal superficial adenomyosis, leiomyomata Bilateral fallopian tubes: Benign fallopian tubes with benign paratubal cysts MICROSCOPIC DESCRIPTION Slides are reviewed. GROSS DESCRIPTION A. Received in formalin labeled with the patient's name and date of . Designated as uterus, cervix, bilateral fallopian tubes is a 149.8 g, 9.1 x 6.0 x 4.7 cm somewhat distorted uterus with detached and attached adnexa. The serosa is girard-pink and glistening with focal, possible adhesions. There is a 0.6 x 0.4 cm cystic area along the right lateral aspect of the external surface. The attached cervix is girard and focally erythematous, measuring 3.5 x 3.4 cm; the 0.9 cm os is probe patent and expelling minimal hemorrhagic mucoid material. The specimen is inked as follows: Iixrzzaz-lvolkTktjpgyfj-d lackParametrium-orangeRig ht lateral cystic area-blue Opening reveals a 6.7 x 3.1 cm endometrial canal lined by red, somewhat lush endometrium that measures up to 0.3 cm thick. The myometrium is girard-pink and trabeculated measuring up to 2.8 cm. There is a 2.5 cm intramural leiomyoma underlying the previously described cystic area on the lateral aspect of the specimen. The girard-pink bilateral fallopian tubes are fimbriated and measure 5.4 x 0.6 cm (L) and 4.5 x 0.5 cm (R). There are few paratubal cyst, <0.1 cm each. Gaming Pit Boss sections are submitted as follows: A1: Anterior cervixA2: Posterior cervixA3: Anterior endomyometrium and possible serosal adhesionsA4: Posterior endomyometriumA5: Left fallopian tube, including paratubal cystA6: Right fallopian tube, including paratubal cystA7: Leiomyoma and right lateral cystic area RI 01/18/2025 [facility]:[id number] Patient Age/Sex Location Account Attending Physician BEATRICE BORREGO 39/F [facility] [id number] Dr. Mony Cisneros MD Signed (signature on file) Dr. Rosie Motley DO 01/19/25 1316 Normal [facility] Comment on above: Performed By: #### L 3890.6102, L3100.0460, L3890.6006, L3890.6301, L3890.6202 #### [facility] [address] [place], [address] CBC-Complete Blood Cnt No Di ffon 01-04-2025 Erythrocyte distribution width (RBC) [Ratio] 11.5 % Low 11.6-14.6 [facility] Comment on above: Performed By: #### L 100.0500, BTSPAT ####[facility] [address] [place], [place], [id number] Hematocrit (Bld) [Volume fraction] 37.7 % Normal 37-47 [facility] Comment on above: Performed By: #### L 100.0500, BTSPAT ####[facility] [address] [place], [address] Hemoglobin (Bld) [Mass/Vol] 13.2 g/dL Normal 12.0-15.0 [facility] Comment on above: Performed By: #### L 100.0500, BTSPAT ####[facility] [address] [place], [address] MCH (RBC) [Entitic mass] 29.4 pg Normal 27.0-32.0 [facility] Comment on above: Performed By: #### L 100.0500, BTSPAT ####[facility] [address] [place], [address] MCHC (RBC) [Mass/Vol] 35.0 g/dL Normal 32-36 [facility] Comment on above: Performed By: #### L 100.0500, BTSPAT ####[facility] [address] [place], [address] MCV (RBC) [Entitic vol] 84.0 fL Normal 81-[address] [facility] Comment on above: Performed By: #### L 100.0500, BTSPAT ####[facility] [address] [place], [address] Platelet mean volume (Bld) [Entitic vol] 10.3 fL Normal 6.2-12.0 [facility] Comment on above: Performed By: #### L 100.0500, BTSPAT ####[facility] [address] [place], [address] Platelets (Bld) [#/Vol] 268 10*3/uL Normal 150-450 [facility] Comment on above: Performed By: #### L 100.0500, BTSPAT ####[facility] [address] [place], [address] RBC (Bld) [#/Vol] 4.49 10*6/uL Normal 4.2-5.4 [facility] Comment on above: Performed By: #### L 100.0500, BTSPAT ####[facility] [address] [place], [address] RDW SD 35.1 fl Normal 35.1-43.9 [facility] Comment on above: Performed By: #### L 100.0500, BTSPAT ####[facility] [address] [place], [address] WBC (Bld) [#/Vol] 9.2 10*3/uL Normal 4.4-11.0 [facility] Comment on above: Performed By: #### L 100.0500, BTSPAT ####[facility] [address] [place], [address] MR/Mattie 01-04-2025 MR/[facility]LEN [facility] Medical Records Department [address] [place] [address] PAT - Anesthesia 01/04/25 1204 MR#: [id number] Acct: [id number] Name: BEATRICE BORREGO Rep #: [id number] : 1985 39 From: Bhavesh Leung MD PCP: Dr. 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 When Was Last Pacemaker Check QUESTION #4 FULL TEXT: You/Your Family Experience fever (hyperthermia) with Anesthesia Last Oral Intake Last Oral intake: Last Oral Intake NPO since Meds taken in AM with sips of water? Meds patient instructed to take am of surgery PONV PONV - animal husbandman: PONV - animal husbandman Female Yes 01/04/25 10:18 HX of Motion Sickness No 01/04/25 10:18 HX of N/V After Surgery Yes 01/04/25 10:18 Non-Smoker Yes 01/04/25 10:18 Duration of Surgery greater Yes 01/04/25 10:18 than 60 minutes Number of Risk Factors 4 01/04/25 10:18 PONV Score Severe Risk 01/04/25 10:18 Height Weight Height Weight: Anesthesia: Height Weight Height 5 ft 4 in 12/21/24 10:37 Respiratory Assessment Respiratory Assessment - animal husbandman: Respiratory Tract Infection Hx - animal husbandman Hx Respiratory Tract Infection No 01/04/25 10:18 STOP Sleep Apnea STOP Sleep Apnea - animal husbandman: STOP Sleep Apnea - animal husbandman Hx Hypertension No 01/04/25 10:18 Hx Sleep Apnea Yes: DOES NOT WEAR CPAP 01/04/25 10:18 CPAP No 01/04/25 10:18 BIPAP No 01/04/25 10:18 Do you snore loudly (louder than talking or can be heard Do you often feel tired/ fatigued/ sleepy during daytime? Has anyone observed you stop breathing during sleep? STOP Results Positive 01/04/25 10:18 QUESTION #5 FULL TEXT : Do you snore loudly (louder than talking or can be heard through closed doors)? Tobacco Use History Tobacco Use History - animal husbandman: Tobacco Use History - animal husbandman Tobacco Use Smoking Status Former smoker 01/04/25 10:18 Hx Tobacco Use Yes 01/04/25 10:18 Years Smoking Packs Smoked per Day Smoking Cessation Date was Yes - quit smoking within 15 01/04/25 10:18 within the last 15 years years Hx Smoking Cessation Date 01/02/25 01/04/25 10:18 Hx Smoking Cessation Yes 01/04/25 10:18 Counseling Hematologic Medial History Hematologic Hx - animal husbandman: Hematologic Medical Hx - cat skinner Hx of Blood Transfusion No 01/04/25 10:18 Hx of Transfusion in last 3 No 01/04/25 10:18 Months Date of Last Transfusion (if within last 3 months) Ever experience any problems No 01/04/25 10:18 with transfusion(s)? Specify any problems Hx of Preganancy in last 3 No 01/04/25 10:18 Months Nurse Filling Out Transfusion CPOWERS2 01/04/25 10:18 Questions: Date: 01/04/25 01/04/25 10:18 Time: 10:23 01/04/25 10:18 Patient unable to answer at this time (ie. confused, unrespo /Reproduction History /Reproductive History - animal husbandman: /Reproductive Hx- animal husbandman Hx Now No 01/04/25 10:18 Gestational Age (in weeks): EDC: Hx Hx Para Hx Section SAB No 01/04/25 10:18 [facility] Medical History (Updated 01/04/25 @ 10:29 by Boo Cuello) Hyperplasia of endometrium determined by biopsy Frequency of urination Back pain Colonoscopy planned Former smoker History of Holter monitoring Carpal tunnel syndrome Flu-like symptoms Vapes nicotine containing substance Diabetes CPAP (continuous positive airway pressure) dependence Hypersomnia Major depressive disorder Encounter for screening laboratory testing for COVID-19 virus Acute bronchitis, unspecified Wears contact lenses Wears glasses Depression Anxiety Gastric reflux History of echocardiogram Cardiology follow-up encounter Hx of pilonidal cyst delivery delivered Home Medications ???Medication ???Instructions ???Recorded ???Last Taken ???Type Lactobacillus acidophilus 250 500 mmu (more content not included)... Normal [facility] Magnesiumon 01-04-2025 Magnesium [Mass/Vol] 1.9 mg/dL Normal 1.5-2.2 [facility] Comment on above: Performed By: #### L 501.5200 ####[facility] [address] [place], [address] Type AND Screen - PAT ONLYon 01-04-2025 Ab SCREEN GEL Negative Normal [facility] Comment on above: Order Comment: Surge ry Date: 01/18/25Reason for Laboratory Test [id number] Performed By: #### L 100.0500, BTSPAT ####[facility] [address] [place], [place], [id number] PAP IG HPV APTIMA 16/18,45on 12-24-2024 ADEQ Comment Normal . [facility] Comment on above: Order Comment: Reaso n for Exam: exposure Result Comment: Sati sfactory for evaluation. No endocervical component is identified. Performed By: #### L 3890.6102, L3100.0460, L3890.6006, L3890.6301, L3890.6202 #### [facility] [address] [place], [address] COMM . Normal . [facility] Comment on above: Order Comment: Reaso n for Exam: exposure Performed By: #### L 3890.6102, L3100.0460, L3890.6006, L3890.6301, L3890.6202 #### [facility] [address] [place], [place], [id number] COMMENT Comment Normal . [facility] Comment on above: Order Comment: Reaso n for Exam: exposure Result Comment: This liquid based ThinPrep(R) pap test was screened with the use of an image guided system. Performed By: #### L 3890.6102, L3100.0460, L3890.6006, L3890.6301, L3890.6202 #### [facility] [address] [place], [place], [id number] DIAG Comment Normal . [facility] Comment on above: Order Comment: Reaso n for Exam: exposure Result Comment: NEGA TIVE FOR INTRAEPITHELIAL LESION OR MALIGNANCY. Performed By: #### L 3890.6102, L3100.0460, L3890.6006, L3890.6301, L3890.6202 #### [facility] [address] [place], [address] HPV APTIMA, HR Negative Normal Negative [facility] Comment on above: Order Comment: Reaso n for Exam: exposure Result Comment: This nucleic acid amplification test detects fourteen high- risk HPV types (16,18,31,33,35,39,45,51,52,56,58,59,66,68) without differentiation. Performed By: #### L 3890.6102, L3100.0460, L3890.6006, L3890.6301, L3890.6202 #### [facility] [address] [place], [place], [address] HPV Ina Rfx Comment Normal . [facility] Comment on above: Order Comment: Reaso n for Exam: exposure Result Comment: Crit erstella not met, HPV Genotype not performed. Performed at: - [facility] [id number] Asbestos Siding Installer: Litzy Delong MD, Phone: [phone] Performed at: = - [facility] [id number] Asbestos Siding Installer: Litzy Delong MD, Phone: [phone] Performed By: #### L 3890.6102, L3100.0460, L3890.6006, L3890.6301, L3890.6202 #### [facility] [address] [place], [address] PAPSMR Comment Normal . [facility] Comment on above: Order Comment: Reaso n for Exam: exposure Result Comment: The Pap smear is a screening test designed to aid in the detection of premalignant and malignant conditions of the uterine cervix. It is not a diagnostic procedure and should not be used as the sole means of detecting cervical cancer. Both false-positive and false-negative reports do occur. Performed By: #### L 3890.6102, L3100.0460, L3890.6006, L3890.6301, L3890.6202 #### [facility] [address] [place], [place], [id number] PERFORM Comment Normal . [facility] Comment on above: Order Comment: Reaso n for Exam: exposure Result Comment: Malgorzata Shafer, Wood Shop Teacher (ASCP) Performed By: #### L 3890.6102, L3100.0460, L3890.6006, L3890.6301, L3890.6202 #### [facility] [place] [place], [address] Marketing Programs Specialist Office Visit Reporton 12-21-2024 Marketing Programs Specialist Office Visit Report [facility] [address], [address] [place] [address] OFFICE VISIT Date of Service: 12/21/24 MR#: [id number] Acct: [id number] Name: BEATRICE BORREGO Rep #: [id number] : 1985 Provider: Dr. Mony hinojosa MD Age/Sex: 38/F Location: [facility] Status: Signed Intake Vital Signs 10/22/24 16:02 11/15/24 09:00 12/06/24 07:08 12/21/24 10:37 Height 5 ft 4 in 5 ft 4 in 5 ft 4 in 5 ft 4 in Weight: 209 lb 6 oz BMI 35.9 BP 127/86 H Intake Visit Reasons: hysterectomy pre-op Property Management Supervisor Required: No Is patient in pain?: No Allergies citalopram hydrobromide (From Celexa) Allergy (Verified 12/21/24 10:38) Hives Penicillins (PCN) Allergy (Verified 12/21/24 10:38) Hives tetanus immune globulin Allergy (Verified 12/21/24 10:38) Hives liraglutide (From Victoza) Adverse Reaction (Verified 12/21/24 10:38) Nausea/Vom/Diarrhea morphine Adverse Reaction (Verified 12/21/24 10:38) Itching Medications ???Medication ???Instructions ???Recorded ???Confirmed ???Type Lactobacillus acidophilus 250 500 mmu cells PO DAILY 05/20/24 History million cell capsule (Probiotic Acidophilus) ashwagandha extract 62.5 mg 62.5 mg PO DAILY 05/20/24 12/21/24 History chewable tablet (Ashwagandha root leaf extract) cholecalciferol (vitamin D3) 50 50 mcg PO DAILY 05/20/24 12/21/24 History mcg (2,000 unit) capsule (Vitamin D3) omega 2-vlz-etp-fish oil 1,200 mg 1 cap PO DAILY 05/20/24 12/21/24 History (144 mg-216 mg) capsule (Fish Oil) ibuprofen 200 mg tablet (Advil) 800 mg PO Q6H PRN pain 07/20/24 History cyclobenzaprine 10 mg tablet 10 mg PO TID PRN muscle spasm #30 07/27/24 12/21/24 Rx tabs omeprazole 40 mg capsule,delayed 40 mg PO BID 90 days #180 caps 12/21/24 Rx release Junel Fe 24 1 mg-20 mcg (24)/75 mg 1 tab PO ONCE #84 tabs 09/15/24 12/21/24 Rx (4) tablet (norethindrone-e.estradio l-iron) ondansetron 4 mg disintegrating 4 mg PO Q8H PRN nausea and 5 12/21/24 Rx tablet vomiting #30 tabs mecobalamin (vitamin B12) 500 mcg 2,500 mcg PO DAILY 10/22/2412/21 History chewable tablet bupropion HCl 150 mg 24 hr tablet, 150 mg PO QAM #90 TABLETS 12/21/24 Rx extended release escitalopram oxalate 10 mg tablet 15 mg (1.5 x 10 mg) PO QHS 90 day s 12/06/24 12/21/24 Rx #135 tabs lorazepam 0.5 mg tablet 0.5 mg PO DAILY PRN anxiety #30 12/21/24 Rx tabs Is last menstrual period known: No Post menopausal: No Patient : No : No PFSH Medical History Carpal tunnel syndrome Flu-like symptoms Vapes nicotine containing substance Diabetes Low iron CPAP (continuous positive airway pressure) dependence Hypersomnia Major depressive disorder Encounter for screening laboratory testing for COVID-19 virus Acute bronchitis, unspecified Wears contact lenses Wears glasses Depression Anxiety Gastric reflux History of echocardiogram Cardiology follow-up encounter Hx of pilonidal cyst delivery delivered Surgical History H/O dilation and curettage History of hysteroscopy Previous section H/O repair of right rotator cuff History of appendectomy Hx of cholecystectomy History of tonsillectomy Family History Mother Hypertension High cholesterol Alcoholism Arthritis Depression Sister Thyroid cancer Depression Colon cancer Arthritis Autoimmune disorder Thyroid disorder Father Alcoholism Anxiety Depression Myocardial infarction Psychiatric care Grandfather Lung cancer Aunt Esophageal cancer Social History household members: spouse and children housing: house number of children: 2 current occupational status: employed current occupation: [employer] pets and animals: Yes pets and animals: dog(s) Smoking Status: Former smoker alcohol intake: current substance use type: does not use what type of physical activity do you participate in: walking and weight training frequency: 3-4 times per week do you feel safe at home: Yes additional social history: Elias GOLDEN hysterectomy pre-op Details: The patient is a 38-year-old female presenting with breakthrough bleeding and a history of endometrial hyperplasia and adenomyosis. She has tried an IUD and oral contraceptive pills, experie ncing irregular bleeding and cramping with the IUD, and breakthrough bleeding with mood changes on the pill. In June, an ultrasound at the emergency room showed a slightly enlarged uterus and a 2 cm fibroid. The patient has a history of (more content not included)... Normal [facility] Surgery Specimen Level Gabriella 12-21-2024 Surgery Specimen Level IV Patient Age/Sex Location Account Attending Physician BEATRICE BORREGO 38/F [facility] [id number] Dr. Mony Cisneros MD Specimen: [id number] Received: 12/21/24 Status: IFRAH Peng Num: [id number] Spec Type: ENDOM BX/C Paresh Dr: Dr. Mony Cisneros MD HEADER OPERATION: Endometrial biopsy PRE-OP DIAGNOSIS: Abnormal uterine bleeding TISSUE SUBMITTED: A- Endometrial tissue MICROSCOPIC DIAGNOSIS A. Endometrium, biopsy: * Scant inactive/superficial endometrium - see note. * Scant squamous and endocervical mucosa. * Note: A limited amount of tissue is present for evaluation. Clinical correlation to assess the adequacy of the sampling is necessary. MICROSCOPIC DESCRIPTION Slides are reviewed. GROSS DESCRIPTION A. Received in formalin labeled the patient's name and date of is a 1.8 x 0.8 x 0.2 cm aggregate of mucoid material and flecks of possible girard tissue. Entirely submitted in 1 cassette. Entirety of the specimen may not survive processing. RI 12/21/2024 CPT:66151 Patient Age/Sex Location Account Attending Physician BEATRICE BORREGO 38/F [facility] [id number] Dr. Mony Cisneros MD Signed (signature on file) Dr. Marcelina Camarillo MD 12/24/24 1735 Normal [facility] Comment on above: Performed By: #### L 3890.6102, L3100.0460, L3890.6006, L3890.6301, L3890.6202 #### [facility] [address] [place], [place], [address] MR/BMS.Holly 12-06-2024 MR/BMS.[address] [id number] OFFICE VISIT Date of Service: 12/06/24 MR#: [id number] Acct: [id number] Name: BEATRICE BORREGO Rep #: [id number] : 1985 Provider: Dr. Raphael Akers se, Age/Sex: 38/F [place] [facility] Status: Signed Intake Vital Signs 11/15/24 09:00 12/06/24 07:08 Height 5 ft 4 in 5 ft 4 in BP Intake Visit Reasons: Follow up Allergies citalopram hydrobromide (From Celexa) Allergy (Verified 10/22/24 15:57) Hives Penicillins (PCN) Allergy (Verified 10/22/24 15:57) Hives tetanus immune globulin Allergy (Verified 10/22/24 15:57) Hives liraglutide (From Victoza) Adverse Reaction (Verified 10/22/24 15:57) Nausea/Vom/Diarrhea morphine Adverse Reaction (Verified 10/22/24 15:57) Itching PFSH Medical History Carpal tunnel syndrome Flu-like symptoms Vapes nicotine containing substance Diabetes Low iron CPAP (continuous positive airway pressure) dependence Hypersomnia Major depressive disorder Encounter for screening laboratory testing for COVID-19 virus Acute bronchitis, unspecified Wears contact lenses Wears glasses Depression Anxiety Gastric reflux History of echocardiogram Cardiology follow-up encounter Hx of pilonidal cyst delivery delivered Surgical History H/O dilation and curettage History of hysteroscopy Previous section H/O repair of right rotator cuff History of appendectomy Hx of cholecystectomy History of tonsillectomy Family History Mother Hypertension High cholesterol Alcoholism Arthritis Depression Sister Thyroid cancer Depression Colon cancer Arthritis Autoimmune disorder Thyroid disorder Father Alcoholism Anxiety Depression Myocardial infarction Psychiatric care Grandfather Lung cancer Aunt Esophageal cancer Social History household members: spouse and children housing: house number of children: 2 current occupational status: employed current occupation: [employer] Children[employer] pets and animals: Yes pets and animals: dog(s) Smoking Status: Former smoker alcohol intake: current substance use type: does not use what type of physical activity do you participate in: walking and weight training frequency: 3-4 times per week do you feel safe at home: Yes additional social history: Elias GOLDEN History of Present Illness History provided by: patient HPI: Beatrice Borrego is a 38 year old female who presents today for follow up evaluation. Patient father has been in the hospital for the last two weeks with inability to feel feet. He fell in August and then has decompensated. Has been feeling stressed with this as well as kids going back to school. Daughter is in [employer] and son is in kindergarten. Son will be starting occupational therapy. Has been taking control which she feels like has been affecting her mood. Describes mood as all over the place. Hoping to have hysterectomy in the somewhat near future. 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 Continues to feel fairly fatigued, but maybe somewhat improved. Continues to have some consistent depression and anxiety which she feels is largely situational. Follows with Rhianna Hagan at [facility]. Has been taking medications regularly. Had wellbutrin increased to 300 mg by BELT LOOP MAKER but has returned to 150 mg after having more mood changes. Denies SI/HI or AVH. Review of Systems Constitutional Reports: change in weight; Denies: fever(s), chills or fatigue Eyes Denies: change in vision or blurry vision Ears, Nose, Mouth, Throat Denies: throat pain, neck pain or change in hearing Cardiovascular Denies: chest pain, palpitations or dyspnea Respiratory Denies: dyspnea, cough or wheezing Gastrointestinal Denies: abdominal pain, nausea, vomiting, diarrhea or constipation Genitourinary Denies: dysuria or urinary frequency Musculoskeletal Denies: back pain, neck pain, joint pain or muscle weakness Integumentary/Breast Denies: rash or new lesions Neurological Denies: headache(s), dizziness or confusion Endocrine Denies: fatigue or excessive sweating Hematologic/Lymphatic Denies: easy bruising or easy bleeding Allergic/Immunologic Denies: wheezing Exam Mental Status Exam - Psych Appearance casually dressed and no apparent distress Attitude cooperative Activity/Motor Behavior MSE activity/motor behavior finding no adventitious movements Speech regular rate, regular volume and regular prosody Mood depressed and anxious Affect full range Thought Process linear, logical and coherent Thought Con (more content not included)... Normal [facility] Marketing Programs Specialist Office Visit Reporton 10-22-2024 Marketing Programs Specialist Office Visit Report [facility] [address] [address], [address] [place] [address] OFFICE VISIT Date of Service: 10/22/24 MR#: [id number] Acct: [id number] Name: BEATRICE BORREGO Rep #: [id number] : 1985 Provider: Dr. Mony hinojosa MD Age/Sex: 38/F Location: [facility] [place] Status: Signed Intake Vital Signs 07/13/24 10:56 07/20/24 10:56 10/22/24 15:56 10/22/24 16:02 Height 5 ft 4 in 5 ft 4 in 5 ft 4 in 5 ft 4 in Weight: 208 lb 6 oz BMI 35.7 BP 129/84 H Intake Visit Reasons: 3 M FU Property Management Supervisor Required: No Is patient in pain?: No Allergies citalopram hydrobromide (From Celexa) Allergy (Verified 10/22/24 15:57) Hives Penicillins (PCN) Allergy (Verified 10/22/24 15:57) Hives tetanus immune globulin Allergy (Verified 10/22/24 15:57) Hives liraglutide (From Victoza) Adverse Reaction (Verified 10/22/24 15:57) Nausea/Vom/Diarrhea morphine Adverse Reaction (Verified 10/22/24 15:57) Itching Medications ???Medication ???Instructions ???Recorded ???Confirmed ???Type Lactobacillus acidophilus 250 500 mmu cells PO DAILY 05/20/24 History million cell capsule (Probiotic Acidophilus) ashwagandha extract 62.5 mg 62.5 mg PO DAILY 05/20/24 10/22/24 History chewable tablet (Ashwagandha root leaf extract) cholecalciferol (vitamin D3) 50 50 mcg PO DAILY 05/20/24 10/22/24 History mcg (2,000 unit) capsule (Vitamin D3) omega 4-tbf-avq-fish oil 1,200 mg 1 cap PO DAILY 05/20/24 10/22/24 History (144 mg-216 mg) capsule (Fish Oil) escitalopram oxalate 10 mg tablet 10 mg PO QHS #90 tabs 06/23/24 Rx lorazepam 0.5 mg tablet 0.5 mg PO DAILY PRN anxiety #30 10/22/24 Rx tabs ibuprofen 200 mg tablet (Advil) 800 mg PO Q6H PRN pain 07/20/24 History cyclobenzaprine 10 mg tablet 10 mg PO TID PRN muscle spasm #30 07/27/24 10/22/24 Rx tabs omeprazole 40 mg capsule,delayed 40 mg PO BID 90 days #180 caps 10/22/24 Rx release Junel Fe 24 1 mg-20 mcg (24)/75 mg 1 tab PO ONCE #84 tabs 09/15/24 10/22/24 Rx (4) tablet (norethindrone-e.estradio l-iron) ondansetron 4 mg disintegrating 4 mg PO Q8H PRN nausea and 5 10/22/24 Rx tablet vomiting #30 tabs bupropion HCl 300 mg 24 hr tablet, 300 mg PO QAM #30 TABLETS 10/22/24 Rx extended release mecobalamin (vitamin B12) 500 mcg 2,500 mcg PO DAILY 10/22/2410/22 History chewable tablet Is last menstrual period known: No Post menopausal: No Patient : No : No PFSH Medical History Carpal tunnel syndrome Flu-like symptoms Vapes nicotine containing substance Diabetes Low iron CPAP (continuous positive airway pressure) dependence Hypersomnia Major depressive disorder Encounter for screening laboratory testing for COVID-19 virus Acute bronchitis, unspecified Wears contact lenses Wears glasses Depression Anxiety Gastric reflux History of echocardiogram Cardiology follow-up encounter Hx of pilonidal cyst delivery delivered Surgical History H/O dilation and curettage History of hysteroscopy Previous section H/O repair of right rotator cuff History of appendectomy Hx of cholecystectomy History of tonsillectomy Family History Mother Hypertension High cholesterol Alcoholism Arthritis Depression Sister Thyroid cancer Depression Colon cancer Arthritis Autoimmune disorder Thyroid disorder Father Alcoholism Anxiety Depression Myocardial infarction Psychiatric care Grandfather Lung cancer Aunt Esophageal cancer Social History household members: spouse and children housing: house number of children: 2 current occupational status: employed current occupation: [employer] Childrens pets and animals: Yes pets and animals: dog(s) Smoking Status: Former smoker alcohol intake: current substance use type: does not use what type of physical activity do you participate in: walking and weight training frequency: 3-4 times per week do you feel safe at home: Yes additional social history: Elias GOLDEN 3 M FU Details: BEATRICE BORREGO is a 38 year old who presents for follow up of AUB. She is also struggling with low libido. she likes the ocp for now and doesn't want to stop it. she is interested in starting a weight management program. she has been successful on semaglutide compounded in the past. she is on wellbutirn and is tolerating the 150mg dosage. History 2 Elective abortions Hx Para 2 Spontaneous abortions Hx # Term Pregnancies Ectopic pregnancies H (more content not included)... Normal [facility] L5500.0550on 10-12-2024 BEEF <0.10 Normal Class 0 [facility] Comment on above: Performed By: #### L 5500.0550, L3410.2400 ####[facility] [address] [facility] [place], [place], [id number] CHOCOLATE <0.10 Normal Class 0 [facility] Comment on above: Performed By: #### L 5500.0550, L3410.2400 ####[facility] [address] [place], [address] CODFISH <0.10 Normal Class 0 [facility] Comment on above: Performed By: #### L 5500.0550, L3410.2400 ####[facility] [address] [place], [place], [id number] COMMENT Comment Normal . [facility] Comment on above: Result Comment: Laurita arnold of Specific IgE Class Description of Class ----- < 0.10 0 Negative 0.10 - 0.31 0/I Equivocal/Low 0.32 - 0.55 I Low 0.56 - 1.40 II Moderate 1.41 - 3.90 III High 3.91 - 19.00 IV Very High 19.01 - 100.00 V Very High >100.00 Very High Performed By: #### L 5500.0550, L3410.2400 ####[facility] [address] [place], [address] CORN <0.10 Normal Class 0 [facility] Comment on above: Performed By: #### L 5500.0550, L3410.2400 ####[facility] [address] [place], [address] EGG, WHOLE <0.10 Normal Class 0 [facility] Comment on above: Result Comment: Perf ormed at: - [facility] [id number] Asbestos Siding Installer: Jacinto Shea MD, Phone: [phone] Performed By: #### L 5500.0550, L3410.2400 ####[facility] [address] [place], [address] MILK (COW) <0.10 Normal Class 0 [facility] Comment on above: Performed By: #### L 5500.0550, L3410.2400 ####[facility] [address] [place], [address] MUSSELS <0.10 Normal Class 0 [facility] Comment on above: Performed By: #### L 5500.0550, L3410.2400 ####[facility] [address] [place], [address] PEANUT <0.10 Normal Class 0 [facility] Comment on above: Performed By: #### L 5500.0550, L3410.2400 ####[facility] [address] [place], [address] PORK <0.10 Normal Class 0 [facility] Comment on above: Performed By: #### L 5500.0550, L3410.2400 ####[facility] [address] [place], [address] SALMON <0.10 Normal Class 0 [facility] Comment on above: Performed By: #### L 5500.0550, L3410.2400 ####[facility] [address] [place], [address] SHRIMP <0.10 Normal Class 0 [facility] Comment on above: Performed By: #### L 5500.0550, L3410.2400 ####[facility] [address] [place], [address] SOYBEAN <0.10 Normal Class 0 [facility] Comment on above: Performed By: #### L 5500.0550, L3410.2400 ####[facility] [address] [place], [address] TUNA <0.10 Normal Class 0 [facility] Comment on above: Performed By: #### L 5500.0550, L3410.2400 ####[facility] [address] [place], [address] WHEAT <0.10 Normal Class 0 [facility] Comment on above: Performed By: #### L 5500.0550, L3410.2400 ####[facility] [address] [place], [address] M7400.3302on 10-08-2024 M7400.3302 TESTING PERFORMED AT [facility]. ORIGINAL REPORT ON FILE IN LAB CONTAINS ADDITIONAL TEST SITE INFORMATION. Giardia Lamblia EIA NEGATIVE [facility] Comment on above: Performed By: #### L 7000.0700, M600.5000, L7000.0750, M100.637, M100.7900, M100.6796, M7400.3302 ####[facility] [address] [facility] [place], [place], [id number] Ova and Parasites 8623on OP OVA AND PARASITES EX AM, ROUTINE These results were obtained using wet preparation(s) and trichrome stained smear. This test does not include testing for Crytosporidium parvum, Cyclospora, or Microsporidia. One negative specimen does not rule out the possibility of a parasitic infection. TESTING PERFORMED AT [facility]. ORIGINAL REPORT ON FILE IN LAB CONTAINS ADDITIONAL TEST SITE INFORMATION. Ova/Parasite Exam NO OVA, CYSTS, OR PARASITES FOUND. [facility] Comment on above: Performed By: #### L 7000.0700, M600.5000, L7000.0750, M100.637, M100.7900, M100.6796, M7400.3302 ####[facility] [address] [facility] [place], [place], [address] Celiac Disease Profileon ENDOMYSIAL IGA Negative Normal Negative [facility] Comment on above: Performed By: #### L 5500.0550, L3410.2400 #### [facility] [address] [place], [place], [address] IMMUNOGLOB A QN 60 mg/dL Low 87-352 [facility] Comment on above: Performed By: #### L 5500.0550, L3410.2400 #### [facility] [address] [place], [place], [address] tTG IGA <2 Normal 0-3 [facility] Comment on above: Result Comment: Nega tive 0 - 3 Weak Positive 4 - 10 Positive >10 Tissue Transglutaminase (tTG) has been identified as the endomysial antigen. Studies have demonstr- ated that endomysial IgA antibodies have over 99% specificity for gluten sensitive enteropathy. Performed By: #### L 5500.0550, L3410.2400 #### [facility] [address] [place], [place], [address] tTG IGG 2 U/mL Normal 0-5 [facility] Comment on above: Result Comment: Nega tive 0 - 5 Weak Positive 6 - 9 Positive >9 Performed at: [address] [id number] Asbestos Siding Installer: Dany White PhD, Phone: [phone] Performed By: #### L 5500.0550, L3410.2400 #### [facility] [address] [place], [address] Calprotectin, Stoolon [address] 67 ug/g Normal 0-120 [facility] Comment on above: Result Comment: Conc entration Interpretation Follow-Up < 5 - 50 ug/g Normal None >50 -120 ug/g Borderline Re-evaluate in 4-6 weeks >120 ug/g Abnormal Repeat as clinically indicated Performed at: [facility] [address] [id number] Asbestos Siding Installer: Jacinto Shea MD, Phone: [phone] Performed By: #### L 7000.0700, M600.5000, L7000.0750, M100.637, M100.7900, M100.4696, M7400.5672 ####[facility] [address] [place], [place], [id number] Gastroenterology Visit Repor kristal 10-05-2024 Gastroenterology Visit Report [facility] [address] [place] [address] OFFICE VISIT Date of Service: 10/05/24 MR#: [id number] Acct: [id number] Name: BEATRICE BORREGO Rep #: [id number] : 1985 Provider: LAVONNE Loja Age/Sex: 38/F [place] [facility] Status: Signed Intake Vital Signs 07/20/24 10:56 Height 5 ft 4 in Intake Visit Reasons: FU PER HALI Chief Complaint: heartburn Allergies citalopram hydrobromide (From Celexa) Allergy (Verified 07/20/24 10:59) Hives Penicillins (PCN) Allergy (Verified 07/20/24 10:59) Hives tetanus immune globulin Allergy (Verified 07/20/24 10:59) Hives liraglutide (From Victoza) Adverse Reaction (Verified 07/20/24 10:59) Nausea/Vom/Diarrhea morphine Adverse Reaction (Verified 07/20/24 10:59) Itching Nurse's Note: OV 10/05/24 Pt here for a f/u and reports she is feeling well and sees an improvement with her symptoms. [facility] Medical History Carpal tunnel syndrome Flu-like symptoms Vapes nicotine containing substance Diabetes Low iron CPAP (continuous positive airway pressure) dependence Hypersomnia Major depressive disorder Encounter for screening laboratory testing for COVID-19 virus Acute bronchitis, unspecified Wears contact lenses Wears glasses Depression Anxiety Gastric reflux History of echocardiogram Cardiology follow-up encounter Hx of pilonidal cyst delivery delivered Surgical History H/O dilation and curettage History of hysteroscopy Previous section H/O repair of right rotator cuff History of appendectomy Hx of cholecystectomy History of tonsillectomy Family History Mother Hypertension High cholesterol Alcoholism Arthritis Depression Sister Thyroid cancer Depression Colon cancer Arthritis Autoimmune disorder Thyroid disorder Father Alcoholism Anxiety Depression Myocardial infarction Psychiatric care Grandfather Lung cancer Aunt Esophageal cancer Social History household members: spouse and children housing: house number of children: 2 current occupational status: employed current occupation: [employer] pets and animals: Yes pets and animals: dog(s) Smoking Status: Former smoker alcohol intake: current substance use type: does not use what type of physical activity do you participate in: walking and weight training frequency: 3-4 times per week do you feel safe at home: Yes additional social history: Elias GOLDEN HPI Chief Complaint: heartburn Details: BEATRICE BORREGO, is a 38 F who presents to the office today for f/u. [facility] established 03.10.24 for screening colonoscopy. Pt sister was diagnosed with colon cancer at age 50. Pt has GI symptoms including diarrhea, heartburn,nausea and ab pain. She is on semaglutide and metformin and feels her symptoms are a side effect of these meds. Colonoscopy and EGD in 2013 without abnormality. Colonoscopy .; - Two 8 mm polyps in the sigmoid colon and at the splenic flexure, removed with a jumbo cold forceps. Resected and retrieved. - The examination was otherwise normal on direct and retroflexion views. EGD .; - Z-line irregular, 39 cm from the incisors. Biopsied. - LA Grade A reflux esophagitis with no bleeding. - Erythematous mucosa in the antrum. Biopsied. - Erythematous duodenopathy. Biopsied. OV 3..25; Pt continues to have heartburn, nausea and abdominal pain. She has not noticed a difference since increasing the PPI but has only been doing this for 2 weeks. She is having 4-5 bm per day and wonders if this is normal. GES 5.13.25; normal *Contacted office with worsening symptoms 7.3.25. Recommend Famotidine. Stool and blood work ordered CBC; wnl Stool; enteric path negative, FOBT negative and C.diff negative OV 7.8.25 Pt having a flare in her symptoms over the past week. After eating chicken wings, she started with heartburn which eventually led to nausea and loose stools. SHe denies vomiting. Her symptoms are slowly getting better. She is taking omeprazole 40 mg twice a day. ROS Const Constitutional: Positive for fatigue and headache(s); No fever(s) or weight change ENT ENT: Positive for headache(s); No difficulty swallowing Gastro GI: Positive for bloating, change in bowel habits, constipation, diarrhea, heartburn, excessive flatus and nausea/dyspepsia; No abdominal pain, belching, change in stool character, coffee ground emesis, cramping, difficulty swallowing, feeling full early, incontinent of stools, Vomiting blood/hematemesis, Blood in stool, loose stools, Black,tarry stools, pain with swallowing or o (more content not included)... Normal [facility] L7000.0750on 10-05-2024 P ELASTASE,FECA > 800 Normal >200 [facility] Comment on above: Result Comment: Resu lt Units: ug Elast./g Severe Pancreatic Insufficiency: <100 Moderate Pancreatic Insufficiency: 100 - 200 Normal: >200 Performed at: - [address] [id number] Asbestos Siding Installer: Jacinto Shea MD, Phone: [phone] Performed By: #### L 7000.0700, M600.5000, L7000.0750, M100.637, M100.7900, M100.6796, M7400.3302 ####[facility] [address] [place], [address] CDIFF (PCR)on 09-30-2024 CDIFF A positive C. diffic ile molecular test does not differentiate between an active C. difficile infection and C. difficile colonization. Use clinical judgement and paired toxin/antigen testing to identify true infection and need for treatment. C diff DNA Spec Ql JO ANN+probe Reference Range: Negative [employer] GeneXpert: polymerase chain reaction (PCR) 027 027 NAP1-B1 Presumptive Negative *for epidemiolologic???use C. Diff PCR Negative- No toxigenic C. Diff Detected Normal [facility] Comment on above: Performed By: #### L 7000.0700, M600.5000, L7000.0750, M100.637, M100.7900, M100.6796, M7400.3302 ####[facility] [address] [place], [place], [phone] ENTERIC PATHOGEN PANEL STOOL on 09-30-2024 EP PANEL Normal Reference Ran ge = Not Detected Nucleic acid amplification test method Not detected for Campylobacter group, Salmonella species, Shigella species, Vibrio Group, Yersinia enterocolitica, EHEC (Shiga Toxin 1, Shiga Toxin 2), Norovirus Gl/Gll, and Rotavirus A. Other common stool pathogens are not detected on this panel include: Aeromonas/Plesiomonas or parasites. Order testing for these organisms separately if suspected. This is an amplified DNA test which makes it both specific and sensitive. CAMPYLOBACTER Not Detected Norovirus Not Detected Rotavirus Not Detected Salmonella Not Detected Shiga Toxin Not Detected Shigella sp. Not Detected VIBRIO Not Detected Yersinia Not Detected Normal [facility] Comment on above: Performed By: #### L 7000.0700, M600.5000, L7000.0750, M100.637, M100.7900, M100.6796, M7400.3302 ####[facility] [address] [place], [place], [phone] Stool Occult Blood iFOBon STOB Negative Normal [facility] Comment on above: Performed By: #### L 7000.0700, M600.5000, L7000.0750, M100.637, M100.7900, M100.6796, M7400.3302 ####[facility] [address] [place], [address] CBC W/Diff, Automatedon 07-0 Absolute Lymph 2.99 X10 3/uL Normal 0.83-4.51 [facility] Comment on above: Performed By: #### L 500.4050, L100.0100 ####[facility] [address] [place], [address] Absolute Neut 3.8 X10 3/uL Normal 2.0-7.7 [facility] Comment on above: Performed By: #### L 500.4050, L100.0100 ####[facility] [address] [place], [address] Basophils/100 WBC (Bld) 0.5 % Normal 0-[address] [facility] Comment on above: Performed By: #### L 500.4050, L100.0100 ####[facility] [address] [place], [address] Eosinophils/100 WBC (Bld) 4.0 % Normal 0-5 [facility] Comment on above: Performed By: #### L 500.4050, L100.0100 ####[facility] [address] [place], [address] Erythrocyte distribution width (RBC) [Ratio] 11.9 % Normal 11.6-14.6 [facility] Comment on above: Performed By: #### L 500.4050, L100.0100 ####[facility] [address] [place], [address] Hematocrit (Bld) [Volume fraction] 38.3 % Normal 37-47 [facility] Comment on above: Performed By: #### L 500.4050, L100.0100 ####[facility] [address] [place], [address] Hemoglobin (Bld) [Mass/Vol] 13.7 g/dL Normal 12.0-15.0 [facility] Comment on above: Performed By: #### L 500.4050, L100.0100 ####[facility] [address] [place], [address] IG% 0.100 Normal 0.0-0.9 [facility] Comment on above: Result Comment: IG% - Immature Granulocytes (promyelocytes, myelocytes and metamyelocytes) > 1% indicates that a LEFT SHIFT is Present. Performed By: #### L 500.4050, L100.0100 ####[facility] [address] [place], [address] Lymphocytes/100 WBC (Bld) 39.8 % Normal 19-41 [facility] Comment on above: Performed By: #### L 500.4050, L100.0100 ####[facility] [address] [place], [address] MCH (RBC) [Entitic mass] 30.2 pg Normal 27.0-32.0 [facility] Comment on above: Performed By: #### L 500.4050, L100.0100 ####[facility] [address] [place], [address] MCHC (RBC) [Mass/Vol] 35.8 g/dL Normal 32-36 [facility] Comment on above: Performed By: #### L 500.4050, L100.0100 ####[facility] [address] [place], [address] MCV (RBC) [Entitic vol] 84.4 fL Normal 81-[address] [facility] Comment on above: Performed By: #### L 500.4050, L100.0100 ####[facility] [address] [place], [address] Monocytes/100 WBC (Bld) 5.6 % Normal 0-[address] [facility] Comment on above: Performed By: #### L 500.4050, L100.0100 ####[facility] [address] [place], [address] Neutrophils/100 WBC (Bld) 50.0 % Normal 47-70 [facility] Comment on above: Performed By: #### L 500.4050, L100.0100 ####[facility] [address] [place], [address] Nucleated RBC (Bld) [#/Vol] 0 10*3/uL Normal 0-5 [facility] Comment on above: Performed By: #### L 500.4050, L100.0100 ####[facility] [address] [place], [address] Platelet mean volume (Bld) [Entitic vol] 10.6 fL Normal 6.2-12.0 [facility] Comment on above: Performed By: #### L 500.4050, L100.0100 ####[facility] [address] [place], [address] Platelets (Bld) [#/Vol] 237 10*3/uL Normal 150-450 [facility] Comment on above: Performed By: #### L 500.4050, L100.0100 ####[facility] [address] [place], [address] RBC (Bld) [#/Vol] 4.54 10*6/uL Normal 4.2-5.4 [facility] Comment on above: Performed By: #### L 500.4050, L100.0100 ####[facility] [address] [place], [address] RDW SD 36.3 fl Normal 35.1-43.9 [facility] Comment on above: Performed By: #### L 500.4050, L100.0100 ####[facility] [address] [place], [address] WBC (Bld) [#/Vol] 7.5 10*3/uL Normal 4.4-11.0 [facility] Comment on above: Performed By: #### L 500.4050, L100.0100 ####[facility] [address] [place], [address] Comprehensive Metabolic Prof ilon 09-29-2024 Albumin [Mass/Vol] 4.4 g/dL Normal 3.5-5.0 [facility] Comment on above: Performed By: #### L 500.4050, L100.0100 ####[facility] [address] [place], [address] Albumin/Globulin [Mass ratio] 1.5 {ratio} Normal 0.9-2.4 [facility] Comment on above: Performed By: #### L 500.4050, L100.0100 ####[facility] [address] [place], [address] ALK PHOS 53 U/L Normal 35-104 [facility] Comment on above: Performed By: #### L 500.4050, L100.0100 ####[facility] [address] [place], [address] ALT [Catalytic activity/Vol] 25 U/L Normal <=34 [facility] Comment on above: Performed By: #### L 500.4050, L100.0100 ####[facility] [address] [place], [address] AST [Catalytic activity/Vol] 29 U/L Normal <=31 [facility] Comment on above: Performed By: #### L 500.4050, L100.0100 ####[facility] [address] [place], [address] Bilirubin [Mass/Vol] 0.29 mg/dL Normal 0.00-1.30 [facility] Comment on above: Performed By: #### L 500.4050, L100.0100 ####[facility] [address] [place], [address] BUN/CRE 18.5 RATIO Normal 10-20 [facility] Comment on above: Performed By: #### L 500.4050, L100.0100 ####[facility] [address] [place], [address] Calcium [Mass/Vol] 9.5 mg/dL Normal 7.6-11.0 [facility] Comment on above: Performed By: #### L 500.4050, L100.0100 ####[facility] [address] [place], [address] Chloride [Moles/Vol] 102 mmol/L Normal 98-108 [facility] Comment on above: Performed By: #### L 500.4050, L100.0100 ####[facility] [address] [place], [address] CO2 [Moles/Vol] 22.0 mmol/L Normal 21.0-32.0 [facility] Comment on above: Performed By: #### L 500.4050, L100.0100 ####[facility] [address] [place], [address] Creatinine [Mass/Vol] 0.74 mg/dL Normal 0.70-1.20 [facility] Comment on above: Performed By: #### L 500.4050, L100.0100 ####[facility] [address] [place], [address] GAP 12 Normal 5-15 [facility] Comment on above: Performed By: #### L 500.4050, L100.0100 ####[facility] [address] [place], [address] GFR/1.73 sq M.predicted among non-blacks MDRD (S/P/Bld) [Vol rate/Area] 106 mL/min/{1.73_m2} Normal >60 [facility] Comment on above: Result Comment: mL/m in/1.73m2 CKD-EPI Creatinine Equation (2020) Performed By: #### L 500.4050, L100.0100 ####[facility] [address] [place], [address] Globulin (S) [Mass/Vol] 2.9 g/dL Normal 2.2-4.2 [facility] Comment on above: Performed By: #### L 500.4050, L100.0100 ####[facility] [address] [place], [address] Glucose [Mass/Vol] 109 mg/dL High 70-99 [facility] Comment on above: Performed By: #### L 500.4050, L100.0100 ####[facility] [address] [place], [address] Potassium [Moles/Vol] 3.5 mmol/L Normal 3.3-5.1 [facility] Comment on above: Performed By: #### L 500.4050, L100.0100 ####[facility] [address] [place], [address] Sodium [Moles/Vol] 136 mmol/L Normal 133-145 [facility] Comment on above: Performed By: #### L 500.4050, L100.0100 ####[facility] [address] [place], [address] T PROT 7.3 g/dL Normal 5.9-8.4 [facility] Comment on above: Performed By: #### L 500.4050, L100.0100 ####[facility] [address] [place], [address] Urea nitrogen [Mass/Vol] 14 mg/dL Normal 4-19 [facility] Comment on above: Performed By: #### L 500.4050, L100.0100 ####[facility] [address] [place], [address] Urine Cultureon 09-02-2024 [facility] Pending Mixed Gram Positive Organisms [place] Count 80,000-100,000 MIXC Mixed contaminants. Submit a new specimen if indicated. Normal [facility] Comment on above: Performed By: #### L 3890.6102, L3100.0460, L3890.6006, L3890.6301, L3890.6202 #### [facility] [address] [place], [address] Urinalysis, Routine (Dipstic k)on 08-31-2024 BILIRUBIN URINE Negative Normal Negative [facility] Comment on above: Order Comment: Reaso n for Exam: exposure Performed By: #### L 3890.6102, L3100.0460, L3890.6006, L3890.6301, L3890.6202 #### [facility] [address] [place], [address] Clarity (U) Sl. Cloudy Normal Clear [facility] Comment on above: Order Comment: Reaso n for Exam: exposure Performed By: #### L 3890.6102, L3100.0460, L3890.6006, L3890.6301, L3890.6202 #### [facility] [address] [place], [address] Color (U) Yellow Normal Yellow [facility] Comment on above: Order Comment: Reaso n for Exam: exposure Performed By: #### L 3890.6102, L3100.0460, L3890.6006, L3890.6301, L3890.6202 #### [facility] [address] [place], [address] GLUCOSE, UR Normal Normal Normal [facility] Comment on above: Order Comment: Reaso n for Exam: exposure Performed By: #### L 3890.6102, L3100.0460, L3890.6006, L3890.6301, L3890.6202 #### [facility] [address] [place], [address] KETONE UR Negative Normal Negative [facility] Comment on above: Order Comment: Reaso n for Exam: exposure Performed By: #### L 3890.6102, L3100.0460, L3890.6006, L3890.6301, L3890.6202 #### [facility] [address] [place], [address] LEUK ESTERASE Negative Normal Negative [facility] Comment on above: Order Comment: Reaso n for Exam: exposure Performed By: #### L 3890.6102, L3100.0460, L3890.6006, L3890.6301, L3890.6202 #### [facility] [address] [place], [address] Nitrite Ql (U) Negative Normal Negative [facility] Comment on above: Order Comment: Reaso n for Exam: exposure Performed By: #### L 3890.6102, L3100.0460, L3890.6006, L3890.6301, L3890.6202 #### [facility] [address] [place], [address] OCCULT BLOOD-UR 10 /ul Abnormal Negative [facility] Comment on above: Order Comment: Reaso n for Exam: exposure Performed By: #### L 3890.6102, L3100.0460, L3890.6006, L3890.6301, L3890.6202 #### [facility] [address] [place], [address] pH UR 7.0 Normal 5.0 - 8.0 [facility] Comment on above: Order Comment: Reaso n for Exam: exposure Performed By: #### L 3890.6102, L3100.0460, L3890.6006, L3890.6301, L3890.6202 #### [facility] [address] [place], [address] PROT DIPSTX 15 mg/dl Abnormal Negative [facility] Comment on above: Order Comment: Reaso n for Exam: exposure Performed By: #### L 3890.6102, L3100.0460, L3890.6006, L3890.6301, L3890.6202 #### [facility] [address] [place], [address] SP.GR. DIPSTX 1.010 Normal 1.002-1.030 [facility] Comment on above: Order Comment: Reaso n for Exam: exposure Performed By: #### L 3890.6102, L3100.0460, L3890.6006, L3890.6301, L3890.6202 #### [facility] [address] [place], [address] UROBILI Normal Normal Normal [facility] Comment on above: Order Comment: Reaso n for Exam: exposure Performed By: #### L 3890.6102, L3100.0460, L3890.6006, L3890.6301, L3890.6202 #### [facility] [address] [place], [address] Gastric Emptying Studyon Gastric Emptying Study [facility] Imaging Services [address] [place] [address] Gastric Emptying Study MR#: [id number] Acct: [id number] Name: BEATRICE BORREGO Rep #: [id number] : 1985 F 38 From: Ronnie Fernandez PCP: Dr. Librado Ybarra, DO Status: REG CLI Study: Gastric Emptying Study Date of Exam: 08/10/24 Exam# [id number] Ordering Dr: Hali Ruiz PROCEDURE: GASTRIC EMPTYING STUDY 08/10/2024 REASON FOR EXAM: BILE ACID REFLUX COMPARISON: None. TECHNIQUE: The patient ingested a standard semi-solid meal oatmeal.. There was no vomiting postprandially. Anterior and posterior planar images of the upper abdomen were obtained for a total of 60 minutes. Regions of interest were drawn, and a geometric mean was used to calculate a eezu-vswbkari-xquog. Medications taken in the past 24 hours that may affect gastric emptying: None RADIOPHARMACEUTICAL: Oral administration of 1.2 mCi technetium 99 M sulfur colloid within oatmeal. FINDINGS: During the time of imaging, gastroesophageal reflux was not demonstrated. Gastric emptying half-time by linear fit of 72.1 minutes. Gastric emptying at 12 minutes of 7%, at 30 minutes of 21%, at 48 minutes of 31%, and at 60 minutes of 39%. NM/Gastric Emptying Study IMPRESSION: Semi solid phase gastric emptying within the normal range, with gastric emptying of 39% at 60 minutes. Reading Location: [place] [address] CC: Dr. Librado Ybarra DO; LAVONNE Loja Socially Responsible Investment Adviser: Signed Normal [facility] CCP IgG Antibodieson 025 CCP IgG Ab. 6 units Normal 0-19 [facility] Comment on above: Result Comment: Nega tive <20 Weak positive 20 - 39 Moderate positive 40 - 59 Strong positive >59 Performed at: [address] [id number] [employer] Siding Installer: Dany White PhD, Phone: [phone] Performed By: #### L 3890.6102, L3100.0460, L3890.6006, L3890.6301, L3890.6202 #### [facility] [address] [place], [address] CBC W/Diff, Automatedon 06-30 Absolute Lymph 3.19 X10 3/uL Normal 0.83-4.51 [facility] Comment on above: Performed By: #### L 3890.6102, L3100.0460, L3890.6006, L3890.6301, L3890.6202 #### [facility] [address] [place], [address] Absolute Neut 5.5 X10 3/uL Normal 2.0-7.7 [facility] Comment on above: Performed By: #### L 3890.6102, L3100.0460, L3890.6006, L3890.6301, L3890.6202 #### [facility] [address] [place], [address] Basophils/100 WBC (Bld) 0.5 % Normal 0-[address] [facility] Comment on above: Performed By: #### L 3890.6102, L3100.0460, L3890.6006, L3890.6301, L3890.6202 #### [facility] [address] [place], [address] Eosinophils/100 WBC (Bld) 3.7 % Normal 0-5 [facility] Comment on above: Performed By: #### L 3890.6102, L3100.0460, L3890.6006, L3890.6301, L3890.6202 #### [facility] [address] [place], [address] Erythrocyte distribution width (RBC) [Ratio] 12.3 % Normal 11.6-14.6 [facility] Comment on above: Performed By: #### L 3890.6102, L3100.0460, L3890.6006, L3890.6301, L3890.6202 #### [facility] [address] [place], [address] Hematocrit (Bld) [Volume fraction] 38.6 % Normal 37-47 [facility] Comment on above: Performed By: #### L 3890.6102, L3100.0460, L3890.6006, L3890.6301, L3890.6202 #### [facility] [address] [place], [address] Hemoglobin (Bld) [Mass/Vol] 13.8 g/dL Normal 12.0-15.0 [facility] Comment on above: Performed By: #### L 3890.6102, L3100.0460, L3890.6006, L3890.6301, L3890.6202 #### [facility] [address] [place], [address] IG% 0.300 Normal 0.0-0.9 [facility] Comment on above: Result Comment: IG% - Immature Granulocytes (promyelocytes, myelocytes and metamyelocytes) > 1% indicates that a LEFT SHIFT is Present. Performed By: #### L 3890.6102, L3100.0460, L3890.6006, L3890.6301, L3890.6202 #### [facility] [address] [place], [address] Lymphocytes/100 WBC (Bld) 32.8 % Normal 19-41 [facility] Comment on above: Performed By: #### L 3890.6102, L3100.0460, L3890.6006, L3890.6301, L3890.6202 #### [facility] [address] [place], [address] MCH (RBC) [Entitic mass] 30.7 pg Normal 27.0-32.0 [facility] Comment on above: Performed By: #### L 3890.6102, L3100.0460, L3890.6006, L3890.6301, L3890.6202 #### [facility] [address] [place], [address] MCHC (RBC) [Mass/Vol] 35.8 g/dL Normal 32-36 [facility] Comment on above: Performed By: #### L 3890.6102, L3100.0460, L3890.6006, L3890.6301, L3890.6202 #### [facility] [address] [place], [address] MCV (RBC) [Entitic vol] 86.0 fL Normal 81-[address] [facility] Comment on above: Performed By: #### L 3890.6102, L3100.0460, L3890.6006, L3890.6301, L3890.6202 #### [facility] [address] [place], [address] Monocytes/100 WBC (Bld) 6.0 % Normal 0-[address] [facility] Comment on above: Performed By: #### L 3890.6102, L3100.0460, L3890.6006, L3890.6301, L3890.6202 #### [facility] [address] [place], [address] Neutrophils/100 WBC (Bld) 56.7 % Normal 47-70 [facility] Comment on above: Performed By: #### L 3890.6102, L3100.0460, L3890.6006, L3890.6301, L3890.6202 #### [facility] [address] [place], [address] Nucleated RBC (Bld) [#/Vol] 0 10*3/uL Normal 0-5 [facility] Comment on above: Performed By: #### L 3890.6102, L3100.0460, L3890.6006, L3890.6301, L3890.6202 #### [facility] [address] [place], [address] Platelet mean volume (Bld) [Entitic vol] 10.7 fL Normal 6.2-12.0 [facility] Comment on above: Performed By: #### L 3890.6102, L3100.0460, L3890.6006, L3890.6301, L3890.6202 #### [facility] [address] [place], [address] Platelets (Bld) [#/Vol] 227 10*3/uL Normal 150-450 [facility] Comment on above: Performed By: #### L 3890.6102, L3100.0460, L3890.6006, L3890.6301, L3890.6202 #### [facility] [address] [place], [address] RBC (Bld) [#/Vol] 4.49 10*6/uL Normal 4.2-5.4 [facility] Comment on above: Performed By: #### L 3890.6102, L3100.0460, L3890.6006, L3890.6301, L3890.6202 #### [facility] [address] [place], [address] RDW SD 38.6 fl Normal 35.1-43.9 [facility] Comment on above: Performed By: #### L 3890.6102, L3100.0460, L3890.6006, L3890.6301, L3890.6202 #### [facility] [address] [place], [address] WBC (Bld) [#/Vol] 9.7 10*3/uL Normal 4.4-11.0 [facility] Comment on above: Performed By: #### L 3890.6102, L3100.0460, L3890.6006, L3890.6301, L3890.6202 #### [facility] [address] [place], [address] Emergency Department Summary on 07-20-2024 Emergency Department Summary [facility] Medical Records Department [address] [place] [address] Emergency Department Summary 07/20/24 MR#: [id number] Acct: [id number] Name: BEATRICE BORREGO Rep #: [id number] : 1985 38 From: Spenser Samuel PCP: Dr. Librado Ybarra, DO Status:DEP ER Location: ED HPI HPI - Female History of Present Illness Chief Complaint: Vag Bleeding Informant: patient Narrative Narrative: Presents worsening pelvic pain since yesterday. She has been spotting for 3 days small clot. Last menstrual period was June 25. History of uterine fibroid followed by Dr. Arnold Johnson. She had recommended hysterectomy with possible adenomyosis however due to work currently being controlled with oral contraceptives. She is post to start a new oral contraceptive soon. She is on her - day of her current control. No blood thinners. No abnormal vaginal discharge other than spotting. Prior similar symptoms: Yes PFSH PFSH Medical History Carpal tunnel syndrome Flu-like symptoms Vapes nicotine containing substance Diabetes Low iron CPAP (continuous positive airway pressure) dependence Hypersomnia Major depressive disorder Encounter for screening laboratory testing for COVID-19 virus Acute bronchitis, unspecified Wears contact lenses Wears glasses Depression Anxiety Gastric reflux History of echocardiogram Cardiology follow-up encounter Hx of pilonidal cyst delivery delivered Home Medications ???Medication ???Instructions ???Recorded ???Last Taken ???Type ferrous fumarate 324 mg (106 mg 324 mg PO DAILY 03/10/24 07/19/24 History iron) tablet Lactobacillus acidophilus 250 500 mmu cells PO DAILY 05/20/24 History million cell capsule (Probiotic Acidophilus) ashwagandha extract 62.5 mg 62.5 mg PO DAILY 05/20/24 07/19/24 History chewable tablet (Ashwagandha root leaf extract) bupropion HCl 150 mg 24 hr tablet, 150 mg PO QHS 05/20/24 07/19/24 History extended release (Wellbutrin XL) cholecalciferol (vitamin D3) 50 50 mcg PO DAILY 05/20/24 07/19/24 History mcg (2,000 unit) capsule (Vitamin D3) cyanocobalamin-liver extract tablet 1 tab PO DAILY 05/20/2407/19/2 5 History omega 0-hmd-tny-fish oil 1,200 mg 1 cap PO DAILY 05/20/24 07/19/24 History (144 mg-216 mg) capsule (Fish Oil) omeprazole 40 mg capsule,delayed 40 mg PO QDAY #60 caps 06/01/24 Rx release escitalopram oxalate 10 mg tablet 10 mg PO QHS #90 tabs 06/23/24 Rx lorazepam 0.5 mg tablet 0.5 mg PO DAILY PRN anxiety #30 Unknown Rx tabs norethindrone 1 mg-ethinyl 1 tab PO ONCE #84 tabs 07/13/24 Rx estradiol 20 mcg (24)-iron 75 mg (4) tablet () ibuprofen 200 mg tablet (Advil) 800 mg PO Q6H PRN pain 07/20/24 History metformin 500 mg tablet,extended 1,000 mg PO QPM 07/20/24 07/19/24 History release 24 hr Allergy/AdvReac Type Severity Reaction Status Date / Time citalopram hydrobromide Allergy Hives Verified 07/20/24 10:59 (From Celexa) Penicillins (PCN) Allergy Hives Verified 07/20/24 10:59 tetanus immune globulin Allergy Hives Verified 07/20/24 10:59 liraglutide (From Victoza) AdvReac Nausea/Vom/ Verified 07/20/24 10:59 Diarrhea morphine AdvReac Itching Verified 07/20/24 10:59 Family History Mother Hypertension High cholesterol Alcoholism Arthritis Depression Sister Thyroid cancer Depression Colon cancer Arthritis Autoimmune disorder Thyroid disorder Father Alcoholism Anxiety Depression Myocardial infarction Psychiatric care Grandfather Lung cancer Aunt Esophageal cancer Surgical History H/O dilation and curettage History of hysteroscopy Previous section H/O repair of right rotator cuff History of appendectomy Hx of cholecystectomy History of tonsillectomy Social History household members: spouse and children housing: house number of children: 2 current occupational status: employed current occupation: [employer] Children[employer] pets and animals: Yes pets and animals: dog(s) Smoking Status: Former smoker alcohol intake: current substance use type: does not use what type of physical activity do you participate in: walking and weight training frequency: 3-4 times per week do you feel safe at home: Yes additional social history: Elias DUQUE ED Constitutional Constitutional ED: Denies chills, fever(s) or sweats ENT ENT ED: Denies sore throat Cardiovascular Cardiovascular: Denies chest pain, leg edema, palpitations or racing heartbeat Respiratory/Chest Respiratory/Cherry (more content not included)... Normal [facility] ,Urineon 07-20-2024 Beta HCG ( test) Ql (U) Negative Normal [facility] Comment on above: Result Comment: Very dilute urine specimens, as indicated by a low specific gravity, may not contain customer support representative levels of hCG. If is still suspected, a first morning urine specimen should be collected 48 hours later and tested. Performed By: #### L 3890.6102, L3100.0460, L3890.6006, L3890.6301, L3890.6202 #### [facility] [address] [place] [place], [address] Transvaginal Non-on 07-20-2024 Transvaginal Non- [facility] Imaging Services [address] [place] [address] Transvaginal Non- MR#: [id number] Acct: [id number] Name: BEATRICE BORREGO Rep #: [id number] : 1985 F 38 From: Obdulio cloud MD PCP: Dr. Librado Ybarra, Status: [facility] ER Study: Transvaginal Non- Date of Exam: Exam# [id number] Ordering Dr: Spenser Eldridge DO PROCEDURE: TRANSVAGINAL NON- REASON FOR EXAM: PELVIC PAIN Spotting. TECHNIQUE: Transvaginal pelvic ultrasound FINDINGS: Measurements: Uterus: 10.3 cm x 6.3 cm x 5.3 cm with a volume of 177 mL Endometrial Thickness: 3.5 mm. Hyperechoic. Right Ovary: 2.5 cm x 2 cm x 1.6 cm with a volume of 4.41 mL. Left Ovary: 3.7 cm x 2.3 cm x 2 cm with a volume of 8.51 mL. TRANSVAGINAL: Uterus: Mildly enlarged. There is a 2.3 cm x 2 cm x 2 cm fundal posterior fibroid. Endometrium: 3.5 mm. Right ovary: Normal size and echotexture. Left ovary: Normal size and echotexture. Other adnexal findings: None. Cul-de-sac: No free intraperitoneal fluid identified. Tenderness: No tenderness US/Transvaginal Non- IMPRESSION: Mildly enlarged uterus with the fundal fibroid. Reading Location: [facility] CC: Dr. Librdao Ybarra, DO; Dr. Spenser Eldridge, DO Socially Responsible Investment Adviser: Signed Normal [facility] CRPon 07-19-2024 C-REACTIVE PROT 4.03 mg/L High 0.0-3.0 [facility] Comment on above: Performed By: #### L 3890.6102, L3100.0460, L3890.6006, L3890.6301, L3890.6202 #### [facility] [address] [place], [place], [address] Erythrocyte Sed Rateon 07-19 SED RATE 5 mm/hr Normal 0-30 [facility] Comment on above: Performed By: #### L 3890.6102, L3100.0460, L3890.6006, L3890.6301, L3890.6202 #### [facility] [address] [place], [place], [address] Rheumatoid Factoron 07-20-19 25 RHEUMATOID FAC < 10.0 Normal <15 [facility] Comment on above: Performed By: #### L 3890.6102, L3100.0460, L3890.6006, L3890.6301, L3890.6202 #### [facility] [address] [place], [place], [address] Marketing Programs Specialist Office Visit Reporton 07-13-2024 Marketing Programs Specialist Office Visit Report [facility] [address], [address] [place] [address] OFFICE VISIT Date of Service: 07/13/24 MR#: [id number] Acct: [id number] Name: BEATRICE BORREGO Rep #: [id number] : 1985 Provider: Dr. 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 Is patient in pain?: Yes (cramping pain on and off) Allergies citalopram hydrobromide (From Celexa) Allergy (Verified 06/16/24 11:07) Hives Penicillins (PCN) Allergy (Verified 06/16/24 11:07) Hives tetanus immune globulin Allergy (Verified 06/16/24 11:07) Hives liraglutide (From Victoza) Adverse Reaction (Verified 06/16/24 11:07) Nausea/Vom/Diarrhea morphine Adverse Reaction (Verified 06/16/24 11:07) Itching Medications ???Medication ???Instructions ???Recorded ???Confirmed ???Type ferrous fumarate 324 mg (106 mg 324 mg PO DAILY 03/10/24 07/13/24 History iron) tablet metformin 1,000 mg tablet 1,000 mg PO QDAY 03/10/24 07/13/24 History Lactobacillus acidophilus 250 500 mmu cells PO DAILY 05/20/24 History million cell capsule (Probiotic Acidophilus) ashwagandha extract 62.5 mg 62.5 mg PO DAILY 05/20/24 07/13/24 History chewable tablet (Ashwagandha root leaf extract) bupropion HCl 150 mg 24 hr tablet, 150 mg PO QHS 05/20/24 07/13/24 History extended release (Wellbutrin XL) cholecalciferol (vitamin D3) 50 50 mcg PO DAILY 05/20/24 07/13/24 History mcg (2,000 unit) capsule (Vitamin D3) cyanocobalamin-liver extract tablet 1 tab PO DAILY 05/20/24 5 History omega 0-pxd-swj-fish oil 1,200 mg 1 cap PO DAILY 05/20/24 07/13/24 History (144 mg-216 mg) capsule (Fish Oil) omeprazole 40 mg capsule,delayed 40 mg PO QDAY #60 caps 06/01/24 Rx release escitalopram oxalate 10 mg tablet 10 mg PO QHS #90 tabs 06/23/24 Rx lorazepam 0.5 mg tablet 0.5 mg PO DAILY PRN anxiety #30 07/13/24 Rx tabs norethindrone 1 mg-ethinyl 1 tab PO ONCE #84 tabs 07/13/24 Rx estradiol 20 mcg (24)-iron 75 mg (4) tablet () Is last menstrual period known: Yes Last Menstrual Period: 06/26/24 Post menopausal: No Patient : No : No PFSH Medical History (Updated 07/14/24 @ 10:02 by Marcia Higginbotham) Carpal tunnel syndrome Flu-like symptoms Vapes nicotine containing substance Diabetes Low iron CPAP (continuous positive airway pressure) dependence Hypersomnia Major depressive disorder Encounter for screening laboratory testing for COVID-19 virus Acute bronchitis, unspecified Wears contact lenses Wears glasses Depression Anxiety Gastric reflux History of echocardiogram Cardiology follow-up encounter Hx of pilonidal cyst delivery delivered Surgical History (Updated 07/14/24 @ 10:03 by Marcia Higginbotham) H/O dilation and curettage History of hysteroscopy Previous section H/O repair of right rotator cuff History of appendectomy Hx of cholecystectomy History of tonsillectomy Family History (Updated 07/14/24 @ 10:11 by Marcia Higginbotham) Mother Hypertension High cholesterol Alcoholism Arthritis Depression Sister Thyroid cancer Depression Colon cancer Arthritis Autoimmune disorder Thyroid disorder Father Alcoholism Anxiety Depression Myocardial infarction Psychiatric care Grandfather Lung cancer Aunt Esophageal cancer Social History (Updated 07/14/24 @ 10:04 by Marcia Higginbotham) household members: spouse and children housing: house number of children: 2 current occupational status: employed current occupation: [employer] Children[employer] pets and animals: Yes pets and animals: dog(s) Smoking Status: Former smoker (Patient did not smoke today.) alcohol intake: current substance use type: does not use what type of physical activity do you participate in: walking and weight training frequency: 3-4 times per week do you feel safe at home: Yes additional social history: Elias GOLDEN HYSTERECTOMY CONSULT Details: BEATRICE BORREGO is a 38 year old who presents for issues with AUB, chronic pelvic pain and small uterine fibroids, has been treated by [facility] in the past. she just started a new job so she would prefer conservative management, just started OCP by [facility]. she had an otherwise normal workup, EMB, has had hyperplasia in the past that resolved. she is open to a hysterectomy potatnially in the future if needed. Female Reproductive History Last Menstrual Period: 0 (more content not included)... Normal [facility] HEPATITIS B SURFACE ANTIBODY on 06-16-2024 Hep Bs Antibody, QN >1000.00 Invalid Interpretation Code [facility] Comment on above: Order Comment: Relea se to patient->Automatic Result Comment: Veri fied By: [id number] Hepatitis Bs Antibody Positive Abnormal Negative [facility] [facility] Comment on above: Order Comment: Relea se to patient->Automatic Result Comment: Refe rence value: Unvaccinated: Negative Vaccinated: Positive Anti-HBs concentration detected at > or = 11.5 mIU/mL. Individual is considered to be immune to infection with HBV. Verified By: [id number] Hepatitis B Surface Antibody Ordered By: Background Lab on 06-16-2024 HBV surface Ab Ql (S) Positive Abnormal Negative [facility] Comment on above: Reference value: Unv accinated: Negative Vaccinated: Positive Anti-HBs concentration detected at > or = 11.5 mIU/mL. Individual is considered to be immune to infection with HBV. Verified By: [id number] Hep Bs Antibody, QN mIU/mL [facility] Comment on above: Verified By: [id number] Interpretation and review of laboratory results Abnormal [facility] MR/BMS.Holly 06-16-2024 [facility] [address] [place] [address], [address] [place] [id number] OFFICE VISIT Date of Service: 06/16/24 MR#: [id number] Acct: [id number] Name: BEATRICE BORREGO Rep #: [id number] : 1985 Provider: Dr. Raphael Akers se, DO Age/Sex: 38/F [place] [facility] [place] Status: Signed Intake Vital Signs 11/12/23 11:30 05/25/24 11:47 06/16/24 11:03 Height 5 ft 4 in 5 ft 4 in 5 ft 4 in Weight: 199 lb BMI 34.1 BP 130/80 H Blood Pressure Location Lt brachial Position Sitting Respiration 16 Pulse 87 Pulse Source Monitor BP Intake Visit Reasons: 6 M FU Accompanied by: Self Allergies citalopram hydrobromide (From Celexa) Allergy (Verified 06/16/24 11:07) Hives Penicillins (PCN) Allergy (Verified 06/16/24 11:07) Hives tetanus immune globulin Allergy (Verified 06/16/24 11:07) Hives liraglutide (From Victoza) Adverse Reaction (Verified 06/16/24 11:07) Nausea/Vom/Diarrhea morphine Adverse Reaction (Verified 06/16/24 11:07) Itching Medications ???Medication ???Instructions ???Recorded ???Confirmed ???Type lorazepam 0.5 mg tablet 0.5 mg PO DAILY PRN anxiety #30 06/16/24 Rx tabs ferrous fumarate 324 mg (106 mg 324 mg PO DAILY 03/10/24 06/16/24 History iron) tablet metformin 1,000 mg tablet 1,000 mg PO QDAY 03/10/24 06/16/24 History Lactobacillus acidophilus 250 500 mmu cells PO DAILY 05/20/24 History million cell capsule (Probiotic Acidophilus) ashwagandha extract 62.5 mg 62.5 mg PO DAILY 05/20/24 06/16/24 History chewable tablet (Ashwagandha root leaf extract) bupropion HCl 150 mg 24 hr tablet, 150 mg PO QHS 05/20/24 06/16/24 History extended release (Wellbutrin XL) cholecalciferol (vitamin D3) 50 50 mcg PO DAILY 05/20/24 06/16/24 History mcg (2,000 unit) capsule (Vitamin D3) cyanocobalamin-liver extract tablet 1 tab PO DAILY 05/20/24 5 History escitalopram oxalate 10 mg tablet 10 mg PO QHS 05/20/24 06/16/24 Hi story omega 3-ntu-mdt-fish oil 1,200 mg 1 cap PO DAILY 05/20/24 06/16/24 History (144 mg-216 mg) capsule (Fish Oil) omeprazole 40 mg capsule,delayed 40 mg PO QDAY #60 caps 06/01/24 Rx release [facility] Medical History (Updated 06/01/24 @ 11:06 by LAVONNE Loja) Flu-like symptoms Vapes nicotine containing substance Diabetes Low iron CPAP (continuous positive airway pressure) dependence Hypersomnia Major depressive disorder Encounter for screening laboratory testing for COVID-19 virus Acute bronchitis, unspecified Wears contact lenses Wears glasses Depression Anxiety Gastric reflux History of echocardiogram Cardiology follow-up encounter Hx of pilonidal cyst delivery delivered Surgical History History of hysteroscopy Previous section H/O repair of right rotator cuff History of appendectomy Hx of cholecystectomy History of tonsillectomy Family History Mother Hypertension High cholesterol Sister Thyroid disorder cancer Cancer Social History household members: spouse and children housing: house current occupational status: employed 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 Patient does admit to having had some worsening depression for the last several months. Feels like these symptoms are worse around her cycle. Feels like a lot of her symptoms are somewhat circumstantial. Needs a hysterectomy but insurance would largely not cover. 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 Describes having some significant fatigue. Has been taking naps nearly every day. At night sleeps 7-9 hours at bed time and describes as being good sleep quality. Will take somewhere between 30-90 minute nap. Stopped Ozempic in February and weight has been largely stable. Has been having some high levels of anxiety. Denies any new side effects from medications. Follows with Rhianna Hagan at [facility]. Feels like relationship has been improving in recent past. Denies SI/HI or AVH. Review of Systems Constitutional Reports: change in weight (loss); Denies: fever(s), chills or (more content not included)... Normal [facility] QUANTIFERON TB GOLDon 2024 Mitogen minus NIL >9.98 Invalid Interpretation Code [facility] Comment on above: Order Comment: Quant iFERON-TB Gold Plus is a qualitative indirect chemiluminescence immunoassay test for M tuberculosis infection and is intended for use in conjunction with risk assessment, radiography, and other medical and diagnostic evaluations. The QuantiFERON-TB Gold Plus result is determined by subtracting the Nil value from either TB antigen value. The Mitogen tube serves as a control for the test. The TB1-NIL tube specifically detects CD4+ lymphocyte reactivity; the TB2-NIL tube can detect both CD4+ and CD8+ lymphocyte reactivity. An overall Negative result does not completely rule out TB infection. A false-positive result in the absence of other clinical evidence of TB infection is not uncommon and may be due to infection from some nontuberculosis mycobacteria (M. kansasii, M szulgai, or M. marinum). Clinical research suggests a QuantiFERON-TB Gold Plus interpretation of Positive with TB1 minus Nil and TB2 minus Nil values <1.00 may represent a false-positive in the absence of other clinical evidence, especially in low-risk individuals. An overall indeterminate result is inconclusive and should not be viewed as low or intermediate infection. Indeterminate results can be caused by low Mitogen or high Nil values. Low mitogen results may occur due to a low lymphocyte count, reduced lymphocyte activity, inability of the patient's lymphocytes to generate IFN-gamma, or inappropriate handling of the tubes. High values for the Nil tube may occur due to heterophile antibody effects of nonspecific, circulating IFN-gamma in the patient's blood sample. When clinically indicated, indeterminate tests should be repeated on a new specimen. Testing Performed: [facility] [address] [place] [address] Release to patient->Automatic Quantiferon TB Gold Negative Invalid Interpretation Code Negative [facility] Comment on above: Order Comment: Quant iFERON-TB Gold Plus is a qualitative indirect chemiluminescence immunoassay test for M tuberculosis infection and is intended for use in conjunction with risk assessment, radiography, and other medical and diagnostic evaluations. The QuantiFERON-TB Gold Plus result is determined by subtracting the Nil value from either TB antigen value. The Mitogen tube serves as a control for the test. The TB1-NIL tube specifically detects CD4+ lymphocyte reactivity; the TB2-NIL tube can detect both CD4+ and CD8+ lymphocyte reactivity. An overall Negative result does not completely rule out TB infection. A false-positive result in the absence of other clinical evidence of TB infection is not uncommon and may be due to infection from some nontuberculosis mycobacteria (M. kansasii, M szulgai, or M. marinum). Clinical research suggests a QuantiFERON-TB Gold Plus interpretation of Positive with TB1 minus Nil and TB2 minus Nil values <1.00 may represent a false-positive in the absence of other clinical evidence, especially in low-risk individuals. An overall indeterminate result is inconclusive and should not be viewed as low or intermediate infection. Indeterminate results can be caused by low Mitogen or high Nil values. Low mitogen results may occur due to a low lymphocyte count, reduced lymphocyte activity, inability of the patient's lymphocytes to generate IFN-gamma, or inappropriate handling of the tubes. High values for the Nil tube may occur due to heterophile antibody effects of nonspecific, circulating IFN-gamma in the patient's blood sample. When clinically indicated, indeterminate tests should be repeated on a new specimen. Testing Performed: [facility] [address] [place] [address] Release to patient->Automatic TB1 minus NIL 0.00 IU/mL Invalid Interpretation Code -0.50-0.34 [facility] Comment on above: Order Comment: Quant iFERON-TB Gold Plus is a qualitative indirect chemiluminescence immunoassay test for M tuberculosis infection and is intended for use in conjunction with risk assessment, radiography, and other medical and diagnostic evaluations. The QuantiFERON-TB Gold Plus result is determined by subtracting the Nil value from either TB antigen value. The Mitogen tube serves as a control for the test. The TB1-NIL tube specifically detects CD4+ lymphocyte reactivity; the TB2-NIL tube can detect both CD4+ and CD8+ lymphocyte reactivity. An overall Negative result does not completely rule out TB infection. A false-positive result in the absence of other clinical evidence of TB infection is not uncommon and may be due to infection from some nontuberculosis mycobacteria (M. kansasii, M szulgai, or M. marinum). Clinical research suggests a QuantiFERON-TB Gold Plus interpretation of Positive with TB1 minus Nil and TB2 minus Nil values <1.00 may represent a false-positive in the absence of other clinical evidence, especially in low-risk individuals. An overall indeterminate result is inconclusive and should not be viewed as low or intermediate infection. Indeterminate results can be caused by low Mitogen or high Nil values. Low mitogen results may occur due to a low lymphocyte count, reduced lymphocyte activity, inability of the patient's lymphocytes to generate IFN-gamma, or inappropriate handling of the tubes. High values for the Nil tube may occur due to heterophile antibody effects of nonspecific, circulating IFN-gamma in the patient's blood sample. When clinically indicated, indeterminate tests should be repeated on a new specimen. Testing Performed: [address] [address] Release to patient->Automatic TB2 minus NIL 0.00 IU/mL Invalid Interpretation Code -0.50-0.34 [facility] Comment on above: Order Comment: Quant iFERON-TB Gold Plus is a qualitative indirect chemiluminescence immunoassay test for M tuberculosis infection and is intended for use in conjunction with risk assessment, radiography, and other medical and diagnostic evaluations. The QuantiFERON-TB Gold Plus result is determined by subtracting the Nil value from either TB antigen value. The Mitogen tube serves as a control for the test. The TB1-NIL tube specifically detects CD4+ lymphocyte reactivity; the TB2-NIL tube can detect both CD4+ and CD8+ lymphocyte reactivity. An overall Negative result does not completely rule out TB infection. A false-positive result in the absence of other clinical evidence of TB infection is not uncommon and may be due to infection from some nontuberculosis mycobacteria (M. kansasii, M szulgai, or M. marinum). Clinical research suggests a QuantiFERON-TB Gold Plus interpretation of Positive with TB1 minus Nil and TB2 minus Nil values <1.00 may represent a false-positive in the absence of other clinical evidence, especially in low-risk individuals. An overall indeterminate result is inconclusive and should not be viewed as low or intermediate infection. Indeterminate results can be caused by low Mitogen or high Nil values. Low mitogen results may occur due to a low lymphocyte count, reduced lymphocyte activity, inability of the patient's lymphocytes to generate IFN-gamma, or inappropriate handling of the tubes. High values for the Nil tube may occur due to heterophile antibody effects of nonspecific, circulating IFN-gamma in the patient's blood sample. When clinically indicated, indeterminate tests should be repeated on a new specimen. Testing Performed: [place] [address] Release to patient->Automatic Gastroenterology Visit Repor ton 06-15-2024 Gastroenterology Visit Report [facility] [address] [place] [address] OFFICE VISIT Date of Service: 06/15/24 MR#: [id number] Acct: [id number] Name: BEATRICE BORREGO Rep #: [id number] : 1985 Provider: LAVONNE Loja Age/Sex: 38/F [place] [facility] [place] Status: Signed Intake Vital Signs 11/12/23 11:30 05/25/24 11:47 Height 5 ft 4 in 5 ft 4 in Intake Visit Reasons: Test Result Chief Complaint: colonscopy f/u Allergies citalopram hydrobromide (From Celexa) Allergy (Verified 05/31/24 08:50) Hives Penicillins (PCN) Allergy (Verified 05/31/24 08:50) Hives tetanus immune globulin Allergy (Verified 05/31/24 08:50) Hives liraglutide (From Victoza) Adverse Reaction (Verified 05/31/24 08:50) Nausea/Vom/Diarrhea morphine Adverse Reaction (Verified 05/31/24 08:50) Itching Medications ???Medication ???Instructions ???Recorded ???Confirmed ???Type lorazepam 0.5 mg tablet 0.5 mg PO DAILY PRN anxiety #30 05/31/24 Rx tabs ferrous fumarate 324 mg (106 mg 324 mg PO DAILY 03/10/24 05/31/24 History iron) tablet metformin 1,000 mg tablet 1,000 mg PO QDAY 03/10/24 05/31/24 History Lactobacillus acidophilus 250 500 mmu cells PO DAILY 05/20/24 History million cell capsule (Probiotic Acidophilus) ashwagandha extract 62.5 mg 62.5 mg PO DAILY 05/20/24 05/31/24 History chewable tablet (Ritadha root leaf extract) bupropion HCl 150 mg 24 hr tablet, 150 mg PO QHS 05/20/24 05/31/24 History extended release (Wellbutrin XL) cholecalciferol (vitamin D3) 50 50 mcg PO DAILY 05/20/24 05/31/24 History mcg (2,000 unit) capsule (Vitamin D3) cyanocobalamin-liver extract tablet 1 tab PO DAILY 05/20/24 5 History escitalopram oxalate 10 mg tablet 10 mg PO QHS 05/20/24 05/31/24 Hi story omega 7-uun-udv-fish oil 1,200 mg 1 cap PO DAILY 05/20/24 05/31/24 History (144 mg-216 mg) capsule (Fish Oil) omeprazole 40 mg capsule,delayed 40 mg PO QDAY #60 caps 06/01/24 R x release Nurse's Note: OV 06.15.24 Pt here for f/u and reports nausea, abdominal pain, diarrhea, constipation, gas, bloating daily and heartburn at night a few times a week. Pt continues omeprazole, and iron supplement. [facility] Medical History (Updated 06/01/24 @ 11:06 by LAVONNE Loja) Flu-like symptoms Vapes nicotine containing substance Diabetes Low iron CPAP (continuous positive airway pressure) dependence Hypersomnia Major depressive disorder Encounter for screening laboratory testing for COVID-19 virus Acute bronchitis, unspecified Wears contact lenses Wears glasses Depression Anxiety Gastric reflux History of echocardiogram Cardiology follow-up encounter Hx of pilonidal cyst delivery delivered Surgical History History of hysteroscopy Previous section H/O repair of right rotator cuff History of appendectomy Hx of cholecystectomy History of tonsillectomy Family History Mother Hypertension High cholesterol Sister Thyroid disorder cancer Cancer Social History household members: spouse and children housing: house current occupational status: employed 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 [facility] established 03.10.24 for screening colonoscopy. Pt sister was diagnosed with colon cancer at age 50. Pt has GI symptoms including diarrhea, heartburn,nausea and ab pain. She is on semaglutide and metformin and feels her symptoms are a side effect of these meds. Colonoscopy and EGD in 2013 without abnormality. Colonoscopy .; - Two 8 mm polyps in the sigmoid colon and at the splenic flexure, removed with a jumbo cold forceps. Resected and retrieved. - The examination was otherwise normal on direct and retroflexion views. EGD .; - Z-line irregular, 39 cm from the incisors. Biopsied. - LA Grade A reflux esophagitis with no bleeding. - Erythematous mucosa in the antrum. Biopsied. - Erythematous duodenopathy. Biopsied. OV 3..25; Pt continues to have heartburn, nausea and abdominal pain. She has not noticed a difference since increasing the PPI but has only been doing this for 2 weeks. She is having 4-5 bm (more content not included)... Normal [facility] Urgent Care Visit Reporton 0 05-31-2024 Urgent Care Visit Report [facility] [address], [address] [place] [address] OFFICE VISIT Date of Service: 05/31/24 MR#: [id number] Acct: [id number] Name: BEATRICE BORREGO Rep #: [id number] : 1985 Provider: NAYANA Clark Age/Sex: 38/F [place] [facility] [place] Status: Signed Intake Vital Signs 05/25/24 11:47 Height 5 ft 4 in Intake Visit Reasons: CONGESTION, SORE THROAT Accompanied by: Self Allergies citalopram hydrobromide (From Celexa) Allergy (Verified 05/31/24 08:50) Hives Penicillins (PCN) Allergy (Verified 05/31/24 08:50) Hives tetanus immune globulin Allergy (Verified 05/31/24 08:50) Hives liraglutide (From Victoza) Adverse Reaction (Verified 05/31/24 08:50) Nausea/Vom/Diarrhea morphine Adverse Reaction (Verified 05/31/24 08:50) Itching Medications ???Medication ???Instructions ???Recorded ???Confirmed ???Type omeprazole 20 mg capsule,delayed 20 mg PO DAILY 01/22/22 05/31/24 H istory release lorazepam 0.5 mg tablet 0.5 mg PO DAILY PRN anxiety #30 05/31/24 Rx tabs ferrous fumarate 324 mg (106 mg 324 mg PO DAILY 03/10/24 05/31/24 History iron) tablet metformin 1,000 mg tablet 1,000 mg PO QDAY 03/10/24 05/31/24 History Lactobacillus acidophilus 250 500 mmu cells PO DAILY 05/20/24 History million cell capsule (Probiotic Acidophilus) ashwagandha extract 62.5 mg 62.5 mg PO DAILY 05/20/24 05/31/24 History chewable tablet (Ashwagandha root leaf extract) bupropion HCl 150 mg 24 hr tablet, 150 mg PO QHS 05/20/24 05/31/24 History extended release (Wellbutrin XL) cholecalciferol (vitamin D3) 50 50 mcg PO DAILY 05/20/24 05/31/24 History mcg (2,000 unit) capsule (Vitamin D3) cyanocobalamin-liver extract tablet 1 tab PO DAILY 05/20/24 5 History escitalopram oxalate 10 mg tablet 10 mg PO QHS 05/20/24 05/31/24 Hi story omega 2-uya-trv-fish oil 1,200 mg 1 cap PO DAILY 05/20/24 05/31/24 History (144 mg-216 mg) capsule (Fish Oil) Nurse's Note: Patient has congestion, ST and rattling in her chest with pressure. Patient states her daughter had flu A and pneumonia last week. [facility] Medical History (Updated 05/31/24 @ 08:55 by DESHAWN HopkinsC) Flu-like symptoms Vapes nicotine containing substance Diabetes Low iron CPAP (continuous positive airway pressure) dependence Hypersomnia Major depressive disorder Encounter for screening laboratory testing for COVID-19 virus Acute bronchitis, unspecified Wears contact lenses Wears glasses Depression Anxiety Gastric reflux History of echocardiogram Cardiology follow-up encounter Hx of pilonidal cyst delivery delivered Surgical History History of hysteroscopy Previous section H/O repair of right rotator cuff History of appendectomy Hx of cholecystectomy History of tonsillectomy Family History Mother Hypertension High cholesterol Sister Thyroid disorder cancer Cancer Social History household members: spouse and children housing: house current occupational status: employed 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 She notes she did have a scope of her throat about a week ago with some biopsies performed. She also notes that her was recently diagnosed with influenza A and pneumonia. Patient otherwise denies any cough congestion. ROS: As noted in HPI Physical Exam: VITALS: Reviewed. GEN: Healthy appearing, well-developed, NAD. PSYCH: AOx3. Normal memory, mood, and affect. HEENT -Eyes: -No discharge or redness; -Ears: -Mouth and throat: Moist mucous membranes. NECK: CV: Regular rate and rhythm LUNGS: Normal respiratory effort. Lungs clear bilaterally. SKIN: Warm, well perfused. No skin rashes or abnormal lesions noted. MSK: Normal gait. NEURO: Ambulating with no limitations. Normal muscle strength and tone. No focal deficits. Coding Level of Care Code Off vis,est,level 3 Diagnoses Flu-like symptoms R68.89 Assessment and Plan Assessment and Plan (1) Flu-like symptoms: Status: Acute Plan: Discus (more content not included)... Normal [facility] Bedside Glucoseon 05-25-2024 FINGERSTICK GLU 78 mg/dL Normal 74-106 [facility] Comment on above: Result Comment: KAREL YARBROUGH OF PATIENT CARE PER NURSING PROTOCOL Performed By: #### L 501.080 ####[facility] [id number] [place], [address] Colonoscopy Reporton 025 Colonoscopy Report [facility] Medical Records Department [address] [place] [address] Colonoscopy Report MR#: [id number] Acct: [id number] Name: BEATRICE BORREGO Rep #: [id number] : 1985 38 From: Erick Carnes DO PCP: Dr. Librado Ybarra DO Status:[facility] Patient Name: Beatrice Borrego Procedure Date: 05/25/2024 12:54 PM Date of : 1985 Age: 38 Procedure: Colonoscopy Indications: Screening in patient at increased risk: Family history of 1st-degree relative with colorectal cancer before age 60 years Providers: Erick Carnes DO Medicines: Monitored Anesthesia Care Patient Profile: This is a 38 year old female. Refer to note in patient chart for documentation of history and physical. Patient has symptoms of chronic epigastric abdominal pain and chronic dyspepsia. Last Colonoscopy: none. The patient's first colonoscopy is today. Complications: No immediate complications. Procedure: Pre-Anesthesia Assessment: - Prior to the procedure, a History and Physical was performed, and patient medications and allergies were reviewed. The patient is competent. The risks and benefits of the procedure and the sedation options and risks were discussed with the patient. All questions were answered and informed consent was obtained. Patient identification and proposed procedure were verified by the physician in the pre-procedure area. Mental Status Examination: alert and oriented. Airway Examination: normal oropharyngeal airway and neck mobility. Respiratory Examination: clear to auscultation. CV Examination: normal. Prophylactic Antibiotics: The patient does not require prophylactic antibiotics. Prior Anticoagulants: The patient has taken no anticoagulant or antiplatelet agents except for NSAID medication. ASA Grade Assessment: II - A patient with mild systemic disease. After reviewing the risks and benefits, the patient was deemed in satisfactory condition to undergo the procedure. The anesthesia plan was to use monitored anesthesia care (MAC). Immediately prior to administration of medications, the patient was re-assessed for adequacy to receive sedatives. The heart rate, respiratory rate, oxygen saturations, blood pressure, adequacy of pulmonary ventilation, and response to care were monitored throughout the procedure. The physical status of the patient was re-assessed after the procedure. After I obtained informed consent, the scope was passed under direct vision. Throughout the procedure, the patient's blood pressure, pulse, and oxygen saturations were monitored continuously. The Colonoscope was introduced through the anus and advanced to the terminal ileum. The colonoscopy was performed without difficulty. The patient tolerated the procedure well. The quality of the bowel preparation was adequate. The ileocecal valve, appendiceal orifice, and rectum were photographed. Scope In: 12:55:41 PM Scope Withdrawal Time 0 hours 10 minutes 11 seconds Scope Out: 1:08:15 PM Total Procedure Duration Time 0 hours 12 minutes 34 seconds Findings: The perianal and digital rectal examinations were normal. Two sessile polyps were found in the sigmoid colon and splenic flexure. The polyps were 8 mm in size. These polyps were removed with a jumbo cold forceps. Resection and retrieval were complete. Verification of patient identification for the specimen was done. Estimated blood loss was minimal. The exam was otherwise without abnormality on direct and retroflexion views. Impression: - Two 8 mm polyps in the sigmoid colon and at the splenic flexure, removed with a jumbo cold forceps. Resected and retrieved. - The examination was otherwise normal on direct and retroflexion views. Recommendation: - Discharge patient to home. - Resume previous diet. - Continue present medications. - Await pathology results. - Repeat colonoscopy in 5 years for surveillance. Procedure Code(s): --- Professional --- 68002, Colonoscopy, flexible; with biopsy, single or multiple CPT copyright 2021 [employer]. All rights reserved. The codes documented in this report are preliminary and upon earth observations chief scientist review may be revised to meet current compliance requirements. Erick Carnes DO 05/25/2024 1:20:55 PM This report has been signed electronically. Number of Addenda: 0 Note Initiated On: 05/25/2024 12:54 PM 05/25/24 1320 Date Erick Carnes DO Cosigner Signature: Date (if indicated) CC: Dr. Librado Ybarra DO; Erick Carnes DO Date Dictated: 05/25/24 1254 Date Transcribed: Socially Responsible Investment Adviser: CHILANGO Signed Normal [facility] EGD Reporton 05-25-2024 EGD Report [facility] Medical Records Department [address] [place] [address] EGD Report MR#: [id number] Acct: [id number] Name: BEATRICE BORREGO Rep #: [id number] : 1985 38 From: Erick Carnes DO PCP: Dr. Librado Ybarra DO Status:REG [facility] Patient Name: Beatrice Borrego Procedure Date: 05/25/2024 12:35 PM Date of : 1985 Age: 38 Procedure: Upper GI endoscopy Indications: Epigastric abdominal pain, Functional Dyspepsia, Heartburn, Suspected reflux esophagitis Providers: Erick Carnes DO Medicines: Monitored Anesthesia Care Patient Profile: This is a 38 year old female. Refer to note in patient chart for documentation of history and physical. Patient has symptoms of chronic epigastric abdominal pain and chronic dyspepsia. Complications: No immediate complications. Procedure: Pre-Anesthesia Assessment: - Prior to the procedure, a History and Physical was performed, and patient medications and allergies were reviewed. The patient is competent. The risks and benefits of the procedure and the sedation options and risks were discussed with the patient. All questions were answered and informed consent was obtained. Patient identification and proposed procedure were verified by the physician in the pre-procedure area. Mental Status Examination: alert and oriented. Airway Examination: normal oropharyngeal airway and neck mobility. Respiratory Examination: clear to auscultation. CV Examination: normal. Prophylactic Antibiotics: The patient does not require prophylactic antibiotics. Prior Anticoagulants: The patient has taken no anticoagulant or antiplatelet agents except for NSAID medication. ASA Grade Assessment: II - A patient with mild systemic disease. After reviewing the risks and benefits, the patient was deemed in satisfactory condition to undergo the procedure. The anesthesia plan was to use monitored anesthesia care (MAC). Immediately prior to administration of medications, the patient was re-assessed for adequacy to receive sedatives. The heart rate, respiratory rate, oxygen saturations, blood pressure, adequacy of pulmonary ventilation, and response to care were monitored throughout the procedure. The physical status of the patient was re-assessed after the procedure. After obtaining informed consent, the endoscope was passed under direct vision. Throughout the procedure, the patient's blood pressure, pulse, and oxygen saturations were monitored continuously. The Colonoscope was introduced through the mouth, and advanced to the second part of duodenum. The upper GI endoscopy was accomplished without difficulty. The patient tolerated the procedure well. Scope In: 12:48:35 PM Scope Out: 12:53:30 PM Total Procedure Duration Time 0 hours 4 minutes 55 seconds Findings: The Z-line was irregular and was found 39 cm from the incisors. Biopsies were taken with a cold forceps for histology. Verification of patient identification for the specimen was done. Estimated blood loss was minimal. LA Grade A (one or more mucosal breaks less than 5 mm, not extending between tops of 2 mucosal folds) esophagitis with no bleeding was found 37 to 39 cm from the incisors. Patchy mildly erythematous mucosa without bleeding was found in the gastric antrum. Biopsies were taken with a cold forceps for histology. Verification of patient identification for the specimen was done. Biopsies were taken with a cold forceps for Helicobacter pylori testing. Verification of patient identification for the specimen was done. Estimated blood loss was minimal. Patchy mildly erythematous mucosa without active bleeding and with no stigmata of bleeding was found in the duodenal bulb. Biopsies were taken with a cold forceps for histology. Verification of patient identification for the specimen was done. Estimated blood loss was minimal. Impression: - Z-line irregular, 39 cm from the incisors. Biopsied. - LA Grade A reflux esophagitis with no bleeding. - Erythematous mucosa in the antrum. Biopsied. - Erythematous duodenopathy. Biopsied. Recommendation: - Discharge patient to home. - Resume previous diet. - Continue present medications. - Await pathology results. Procedure Code(s): --- Professional --- 11888, Esophagogastroduodenoscop y, flexible, transoral; with biopsy, single or multiple CPT copyright 2021 [employer]. All rights reserved. The codes documented in this report are preliminary and upon earth observations chief scientist review may be revised to meet current compliance requirements. Erick Carnes DO 05/25/2024 1:18:22 PM This report has been signed electronically. Number of Addenda: 0 Note Initiated On: 05/25/2024 12:35 PM 05/25/24 1318 Date Erick Baez Signature: Date (more content not included)... Normal [facility] H Pylori (initial)on 025 H Pylori (initial) ----- Patient Age/Sex Location Account Attending Physician BEATRICE BORREGO 38/F EN [id number] Erick Carnes DO Specimen: [id number] Received: 05/26/24 Status: IFRAH Peng Num: [id number] Spec Type: IMMUNO Subm Dr: Erick Carnes DO PHYSICIAN INSTITUTION [place] [address] SPECIMEN INFORMATION: Tissue Source: B- Gastric antrum biopsy Clinical Info: Routine cancer screening Specimen Number: [id number] CPT code: 86651 METHODOLOGY: Deparaffinized sections of prefer/formalin-fixed tissue or PAP/DQ stained slides are incubated with monoclonal/polyclonal antibodies/oligonucleotid e probes. Localization is made via biotin free immunoperoxidase method. Appropriate controls are performed and reacted as expected. Results on target cell population are indicated in the following table: RESULTS: ANTIBODY / CLONE RESULT Block B H Pylori (polyclonal) negative These tests were developed and their performance characteristics determined by [facility]. They may not have been cleared or approved by the U.S. Food and Drug Administration. The FDA has determined that such clearance or approval is not necessary. The above immunohistochemical/dualI SH markers are ordered and reviewed by the Pathologist. INTERPRETATION: B. Gastric antrum, biopsy: Negative for Helicobacter pylori organisms. SHAHIDA. 05/27/2024 Signed (signature on file) Dr. Abdirahman Trinh MD 05/27/24 1343 Normal [facility] Comment on above: Performed By: #### P H.PYLORI ####[facility] [id number] [place], [address] MR/POSTOP.ANEon 05-25-2024 MR/POSTOP.[facility] Medical Records Department [address] [place] [address] Anesthesia Postop Eval I 05/25/24 1317 MR#: [id number] Acct: [id number] Name: BEATRICE BORREGO Rep #: [id number] : 1985 38 From: Eloy Dickinson PCP: Dr. Librado Ybarra, DO Status:REG [facility] Y Race: C Location: [place] [address] Anesthesia: Postop Eval I Current Vital Signs Temperature: 98.3 F Pulse Rate: 71 Blood Pressure: 114/63 Respiratory Rate: 16 Pulse Ox: 98 Oxygen Delivery Method: Room Air Assessment Airway patent: Yes Spontaneous unlabored respirations: Yes Mental status: Asleep nausea: No Vomiting: No Anesthesia Complication: No Fluid Hydration Crystalloid volume administer (ml): 60 Total IV fluid infused: 60 Progress Note Anesthesia document: Postop Eval 1 completed: Yes 05/25/241317 Date Eloy Dickinson Cosignvenice Signature: Date CC: Signed Normal [facility] MR/[id number] 05-25-2024 MR/POSTOPAN2 [facility] Medical Records Department [address] [place] [address] Anesthesia Postop Eval II 05/25/24 1842 MR#: [id number] Acct: [id number] Name: BEATRICE BORREGO Rep #: [id number] : 1985 38 From: Herbetr Hair MD PCP: Dr. Librado Ybarra, DO Status:[facility] [place] [place] Y Race: C Location: EN Anesthesia Postop Eval I Sum Postop Eval Completion status Anesthesia document: Postop Eval 1 completed: Yes Anesthesia Postop Eval I Summary Anesthesia Postop Eval I Summary: Anesthesia Postop Eval I: Assessment Summary Airway patent Yes 05/25/24 13:18 [email or web address] Spontaneous unlabored Yes 05/25/24 13:18 [email or web address] respirations Mental status Asleep 05/25/24 13:18 [email or web address] nausea No 05/25/24 13:18 [email or web address] Vomiting No 05/25/24 13:18 [email or web address] Anesthesia Postop Eval I: Fluid Summary Crystalloid volume administer 60 05/25/24 13:18 [email or web address] (ml) Colloids volume administered ( ml) Blood Product volume administered (ml) Total IV fluid infused 60 05/25/24 13:18 [email or web address] Anesthesia Postop Eval I: Summary Notes Anesthesia Complication No 05/25/24 13:18 [email or web address] Anesthesia Complication Comment: Post-operative progress note Anesthesia: Postop Eval II Evaluation Mental status: Calm Pain Level: 0 nausea: No Vomiting: No Complications Anesthesia Complication: No 05/25/24 1842 Date Herbert Hair MD Cosigner Signature: Date CC: Signed Normal [facility] ,Urineon 05-25-2024 Beta HCG ( test) Ql (U) Negative [facility] Comment on above: Result Comment: Very dilute urine specimens, as indicated by a low specific gravity, may not contain customer support representative levels of hCG. If is still suspected, a first morning urine specimen should be collected 48 hours later and tested. Performed By: #### L 3890.6102, L3100.0460, L3890.6006, L3890.6301, L3890.6202 #### [facility] [address] [place], [address] Special Stain Group Ion 02- Special Stain Group I ------- Patient Age/Sex Location Account Attending Physician BEATRICE BORREGO 38/F EN [id number] Erick Carnes DO Specimen: [id number] Received: 05/26/24 Status: IFRAH Peng Num: [id number] Spec Type: COLON BX Subm Dr: Erick Carnes, HEADER OPERATION: Colonoscopy, EGD PRE-OP DIAGNOSIS: Routine cancer screening TISSUE SUBMITTED: A- Duodenum biopsy, B- Gastric antrum biopsy, C- Distal esophagus biopsy, D- Splenic flexure polyp, E- Sigmoid polyp MICROSCOPIC DIAGNOSIS A. Duodenum, biopsy: Fragments of duodenal mucosa with mild congestion and hemorrhage. B. Gastric antrum, biopsy: Mild gastritis. See microscopic description and comment. C. Distal esophagus, biopsy: Fragments of gastroesophageal mucosa with chronic inflammation and changes consistent with gastroesophageal reflux disease. Intestinal metaplasia (goblet cell metaplasia) not identified. See comment. D. Splenic flexure polyp, biopsy: Fragments of hyperplastic polyp. E. Sigmoid colon polyp, biopsy: Fragments of hyperplastic polyp. . 05/27/2024 COMMENT B. The results of immunohistochemistry for Helicobacter pylori will be reported separately ([id number]). C. Alcian blue/PAS stain with matched control is used in the evaluation of the specimen. MICROSCOPIC DESCRIPTION Slides are reviewed. B. The specimen shows fragments of gastric mucosa with chronic inflammatory cell infiltrates in the lamina propria consisting of lymphocytes and plasma cells, consistent with mild chronic gastritis. GROSS DESCRIPTION A. Received in fixative is one container labeled with the patient's name and designated Duodenum biopsy. The specimen consists of two irregular fragments of light girard soft tissue that in aggregate measure 0.8 x 0.2 x 0.2 cm. The specimen is totally submitted in one cassette. Patient Age/Sex Location Account Attending Physician BEATRICE BORREGO 38/F EN [id number] Erick Carnes DO B. Received in fixative is one container labeled with the patient's name and designated Gastric antrum biopsy. The specimen consists of two irregular fragments of light girard soft tissue that in aggregate measure 0.7 x 0.2 x 0.2 cm. The specimen is totally submitted in one cassette. C. Received in fixative is one container labeled with the patient's name and designated Distal esophagus biopsy. The specimen consists of multiple irregular fragments of light girard soft tissue that in aggregate measure 1 x 0.2 x 0.2 cm. The specimen is totally submitted in one cassette. D. Received in fixative is one container labeled with the patient's name and designated Splenic flexure polyp. The specimen consists of multiple irregular fragments of light girard soft tissue that in aggregate measure 0.8 x 0.2 x 0.2 cm. The specimen is totally submitted in one cassette. E. Received in fixative is one container labeled with the patient's name and designated Sigmoid polyp. The specimen consists of two irregular fragments of light girard soft tissue that in aggregate measure 0.8 x 0.3 x 0.2 cm. The specimen is totally submitted in one cassette. 05/26/2024 TC:1 [facility]:[id number] Patient Age/Sex Location Account Attending Physician BEATRICE BORREGO 38/F EN [id number] Erick Deyvi, DO Signed (signature on file) Dr. Abdirahman Trinh MD 05/27/24 1338 Normal [facility] Comment on above: Performed By: #### L 3890.6102, L3100.0460, L3890.6006, L3890.6301, L3890.6202 #### [facility] [address] [place], [address] Gastroenterology Visit Repor ton 03-10-2024 Gastroenterology Visit Report [facility]enter[facility] [address] [place] [address] OFFICE VISIT Date of Service: 03/10/24 MR#: [id number] Acct: [id number] Name: BEATRICE BORREGO Rep #: [id number] : 1985 Provider: LAVONNE Loja Age/Sex: 38/F [facility] Status: Signed Intake Vital Signs 11/12/23 11:30 Height 5 ft 4 in BP 135/82 H Blood Pressure Location Rt brachial Position Sitting Pulse 69 Pulse Source Monitor Intake Visit Reasons: Pre Colon Chief Complaint: colonscopy Allergies citalopram hydrobromide (From Celexa) Allergy (Verified 11/12/23 11:30) Hives Penicillins (PCN) Allergy (Verified 11/12/23 11:30) Hives tetanus immune globulin Allergy (Verified 11/12/23 11:30) Hives liraglutide (From Victoza) Adverse Reaction (Verified 11/12/23 11:30) Nausea/Vom/Diarrhea morphine Adverse Reaction (Verified 11/12/23 11:30) Itching Medications ???Medication ???Instructions ???Recorded ???Confirmed ???Type omeprazole 20 mg capsule,delayed 20 mg PO DAILY 01/22/22 03/09/24 History release bupropion HCl 150 mg 24 hr tablet, 150 mg PO QAM #90 tabs 11/12/23 03/09/24 Rx extended release (Wellbutrin XL) escitalopram oxalate 10 mg tablet See Rx Instructions .Route 11/12/23 03/09/24 Rx .COMPLEX #90 tabs gabapentin 300 mg capsule 300 mg PO QHS #90 caps 11/12/23 03/09/24 Rx lorazepam 0.5 mg tablet 0.5 mg PO DAILY PRN anxiety #30 02/23/24 03/09/24 Rx tabs ferrous fumarate 324 mg (106 mg 324 mg PO .3xweekly 03/10/24 03/10/24 History iron) tablet metformin 1,000 mg tablet 1,000 mg PO QDAY 03/10/24 03/10/24 History PFSH Medical History OLE on CPAP Hypersomnia Major depressive disorder Encounter for screening laboratory testing for COVID-19 virus Acute bronchitis, unspecified Wears contact lenses Wears glasses Depression Anxiety Gastric reflux Former smoker Shortness of breath on exertion History of echocardiogram Cardiology follow-up encounter Hx of pilonidal cyst Hypothyroid delivery delivered GERD (gastroesophageal reflux disease) Anxiety and depression Type 2 diabetes mellitus Hypothyroidism Surgical History Previous section H/O repair of right rotator cuff History of appendectomy Hx of cholecystectomy History of tonsillectomy Family History Mother Hypertension High cholesterol Sister Thyroid disorder cancer Cancer Social History household members: spouse and children housing: house current occupational status: employed 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 Pt is here today to get scheduled for a colonoscopy. Her sister was diagnosed with colon cancer at age 50. She was able to have it removed without colon resection. Pt does have numerous GI symptoms including diarrhea, heartburn, nausea and abdominal pain. She feels most of these are related to her medications metformin and semaglutide. She has 2-3 episodes of diarrhea per day since starting metformin. She did have loose stools prior to this about once a week. She has nausea almost daily and is on PPI for heartburn and has been for years. She had a colonoscopy and EGD in 2013 but is unsure what kind of Symptoms prompted this. The colonoscopy and EGD was without abnormalities. She is s/p cholecystectomy ROS Const Constitutional: Positive for fatigue; No fever(s) or weight change ENT ENT: No difficulty swallowing Gastro GI: Positive for abdominal pain, bloating, diarrhea, heartburn, excessive flatus and nausea/dyspepsia; No belching, change in bowel habits, change in stool character, coffee ground emesis, constipation, cramping, difficulty swallowing, feeling full early, incontinent of stools, Vomiting blood/hematemesis, Blood in stool, loose stools, Black,tarry stools, pain with swallowing, vomiting or other Musc Musculoskeletal: Positive for back pain; No joint pain Skin Skin: No yellowing of the eye or itchy eyes Psych Psychiatric: Positive for anxiety and No depression Endo Endocrine: Positive for fatigue; No weight change Aller/Imm Allergy/Immunologic: No itchy eyes Cesar/Lymp Hematologic/Lymphatic: Positive for easy bleeding; No easy bruising Exam Const General: (more content not included)... Normal [facility] Final Surgical Pathology Rep chinmay 03-08-2024 Final Surgical Pathology Report . Pathology Reports Accession: Collected Date/Time: Received Date/Time: Pathologist: [id number] 03/03/2024 16:57 EST 03/05/2024 08:49 EST MASSIMO SALGUERO MD Final Surgical Pathology Report DIAGNOSIS: ENDOMETRIAL BIOPSY: - SECRETORY ENDOMETRIUM - NEGATIVE FOR HYPERPLASIA OR MALIGNANCY COMMENT: [facility] [id number] CLINICAL INFORMATION: MENORRHAGIA WITH REGULAR CYCLE SPECIMEN: A ENDOMETRIUM GROSS DESCRIPTION: All parts labelled with patient name and [id number] Received in formalin labeled undesignated are multiple girard-pink and hemorrhagic tissue fragments aggregating to 0.1 x 0.7 x 0.3 cm. Smallest fragments may not survive processing. TS-1 Gladis rPesley, Grossing Home Security Alarm Installer/ Dr. Neo Zaragoza, Pathologist Performed by Gladis Presley MICROSCOPIC DESCRIPTION: The microscopic examination is performed, except in the case of Gross Only. Electronically Signed by Pathology Report verified by [facility] MASSIMO SALGUERO Sign out Date: 03/08/2024 10:10 Performing Lab: [facility], [address] [place] [address] Pathology Dept Disclaimer If ancillary studies were utilized, the following Laboratory Developed Test (LDT) disclaimer will apply: Under CLIA requirements, [facility] is qualified to perform high complexity testing. For all ancillary stains, positive and negative controls stain appropriately. Performance characteristics of immunohistochemical and chromogenic in-situ hybridization tests have been determined by [facility]. These tests are used for clinical purposes, They should not be regarded as investigational or for research. Normal [facility] Absolute lymphocyte counton 01-06-2022 Lymphocytes Auto (Unsp spec) [#/Vol] 3.59 10*3/uL 0.83-4.51 [facility] Work Phone: Basophil percentageon 2021 Basophils/100 WBC (Bld) 0.5 % 0-[address] [facility] Work Phone: Chloride [Moles/Vol] 104 mmol/L 98-107 [facility] Work Phone: Eosinophils/100 WBC (Bld) 3.1 % 0-5 [facility] Work Phone: Glucose [Mass/Vol] 92 mg/dL 74-106 [facility] Work Phone: Neutrophils (Bld) [#/Vol] 5.0 10*3/uL 2.0-7.7 [facility] Work Phone: Neutrophils/100 WBC (Bld) 52.8 % 47-70 [facility] Work Phone: Potassium [Moles/Vol] 3.9 mmol/L 3.5-5.1 [facility] Work Phone: Sodium [Moles/Vol] 137 mmol/L 136-145 [facility] Work Phone: WBC (Bld) [#/Vol] 9.5 10*3/uL 4.4-11.0 [facility] Work Phone: Beta hCG serum qualon 2021 Beta HCG ( test) Ql Negative [facility] Work Phone: Blood erythrocytes count (nu mber/volume)on 01-06-2022 RBC (Bld) [#/Vol] 4.89 10*6/uL 4.2-5.4 [facility] Work [facility]: Blood hemoglobin measurement (mass/volume)on 01-06-2022 Hemoglobin (Bld) [Mass/Vol] 14.7 g/dL 12.0-15.0 [facility] Work Phone: Blood lymphocytes/100 leukoc yteson 01-06-2022 Lymphocytes/100 WBC (Bld) 37.8 % 19-41 [facility] Work Phone: Blood monocytes/100 leukocyt eson 01-06-2022 Monocytes/100 WBC (Bld) 5.5 % 0-[address] [facility] Work Phone: Blood platelet mean volumeon 01-06-2022 Platelet mean volume (Bld) [Entitic vol] 11.4 fL 6.2-12.0 [facility] Work Phone: Determination of erythrocyte mean corpuscular volume (MCV)on 01-06-2022 MCV (RBC) [Entitic vol] 91.6 fL 81-[address] [facility] Work Phone: [phone] Hematocrit Auto (Bld) [Volum e fraction]on 01-06-2022 Hematocrit (Bld) [Volume fraction] 44.8 % 37-47 [facility] Work Phone: Laboratory - Chemistry and C hemistry - challengeon 01-06-2022 CO2 [Moles/Vol] 25.0 mmol/L 21.0-32.0 [facility] Work Phone: Urea nitrogen/Creatinine [Mass ratio] 19.7 mg/mg 10-20 [facility] Work Phone: Laboratory - Drug toxicology on 01-06-2022 Amphetamines Ql (U) Negative <1000 ng/mL [facility] Work Phone: Benzodiazepines Ql (U) Negative < 200 ng/mL [facility] Work Phone: Cannabinoids Screen Ql (U) Negative < 50 ng/mL [facility] Work Phone: Cocaine Ql (U) Negative < 300 ng/mL [facility] Work Phone: Opiates Ql (U) Negative < 300 ng/mL [facility] Work Phone: Laboratory - Hematology and Cell countson 01-06-2022 Erythrocyte distribution width (RBC) [Entitic vol] 40.2 fL 35.1-43.9 [facility] Work Phone: [phone] Erythrocyte distribution width (RBC) [Ratio] 12.0 % 11.6-14.6 [facility] Work Phone: Immature granulocytes/100 WBC (Bld) 0.300 % 0.0-0.9 [facility] Work Phone: Comment on above: IG% - Immature Granu locytes (promyelocytes, myelocytes and metamyelocytes) > 1% indicates that a LEFT SHIFT is Present. MCH (RBC) [Entitic mass] 30.1 pg 27.0-32.0 [facility] Work Phone: Nucleated RBC/100 WBC (Bld) [Ratio] 0 % 0-5 [facility] Work Phone: MCHC Auto (RBC) [Mass/Vol]on 01-06-2022 MCHC (RBC) [Mass/Vol] 32.8 g/dL 32-36 [facility] Work Phone: No Panel Informationon 01-06 Estimated Creatinine Clearance Calc 99.80 ml/min [facility] Work Phone: Estimated GFR (MDRD) Amer 129 mL/min >60 [facility] Work Phone: Comment on above: GFR Calc Estimated GFR (MDRD) Non-Af Amer 107 mL/min >60 [facility] Work Phone: Comment on above: Non- GFR Calc Ethyl Alcohol Level 7.0 mg/dL [facility] Work Phone: Comment on above: The serum:whole bloo d ethanol ratio is approximately 1.14and varies slightly with hematocrit. Medical Alcohol reference interval and critical value innon-tolerant individuals; 50 - 100 Impairment 100 Intoxication 100 - 250 Severe Poisoning 250 - 400 Deep/possible fatal coma MDMA (Ecstasy) Screen Negative < 500 ng/mL [facility] Work Phone: Urine Barbiturates Screen Negative < 200 ng/mL [facility] Work Phone: Urine Drug Screen Comment [facility] Work Phone: Comment on above: CONFIRMATORY TESTING FOR ALL POSITIVE URINE DRUG SCREENRESULTS WILL ONLY BE SENT OUT UPON PHYSICIAN ORDER. VISTA Urine Drug Screen methods provide only preliminaryanalytical test results. A more specific alternate chemicalmethod must be used in order to obtain a confirmedanalytical result. Gas chromatography/mass spectrometery(GC/MS) is the preferred confirmatory method. Clinicalconsideration and professional judgement should be appliedto any drug of abuse test result, particularly whenpreliminary positive results are used. URINE TCA TESTING MUST BE ORDERED SEPARATELY. USE TESTMNEMONIC: [facility] Urine Methadone Screen Negative < 300 ng/mL [facility] Work Phone: Platelets bldon 01-06-2022 Platelets (Bld) [#/Vol] 187 10*3/uL 150-450 [facility] Work Phone: Serum or plasma calcium archana urement (mass/volume)on 01-06-2022 Calcium [Mass/Vol] 9.8 mg/dL 8.5-10.1 [facility] Work Phone: Serum or plasma creatinine m easurement (mass/volume)on 01-06-2022 Creatinine [Mass/Vol] 0.66 mg/dL 0.55-1.02 [facility] Work Phone: Comment on above: The validity of the calculated GFR & GFRAA in patients over 70 years has not been determined. Clinical correlation is essential. Serum or plasma urea nitroge n measurement (mass/volume)on 01-06-2022 Urea nitrogen [Mass/Vol] 13 mg/dL 7-18 [facility] Work Phone: Thin prep Papanicolaou smear with manual screeningon 01-06-2022 Thin prep Papanicolaou smear with manual screening 8 5-15 [facility] Work Phone: Urine phencyclidine (PCP) de tectionon 01-06-2022 Phencyclidine Ql (U) Negative < 25 ng/mL [facility] Work Phone: Absolute lymphocyte counton 11-23-2021 Lymphocytes Auto (Unsp spec) [#/Vol] 2.81 10*3/uL 0.83-4.51 [facility] Work Phone: Absolute reticulocyte counto n 11-23-2021 Reticulocytes (Bld) [#/Vol] 0.00 10*3/uL 0-5 [facility] Work Phone: Basophil percentageon 2021 Basophil percentage 3.0 mg/dL 2.5-4.9 [facility]: Bilirubin [Mass/Vol] 0.70 mg/dL 0.20-1.00 [facility] Work Phone: Comment on above: For patients on eltr ombopag therapy, use of Dimension [place] TBIL is not recommended. Chloride [Moles/Vol] 105 mmol/L 98-107 [facility] Work Phone: Cholesterol [Mass/Vol] 240 mg/dL <200 [facility] Work Phone: Comment on above: <200 mg/dL Desirable 200-240 mg/dL Borderline >240 mg/dL High Risk Glucose [Mass/Vol] 88 mg/dL 74-106 [facility] Work Phone: Neutrophils (Bld) [#/Vol] 4.4 10*3/uL 2.0-7.7 [facility] Work Phone: Potassium [Moles/Vol] 4.1 mmol/L 3.5-5.1 [facility] Work Phone: Protein [Mass/Vol] 8.0 g/dL 6.4-8.2 [facility] Work Phone: Sodium [Moles/Vol] 136 mmol/L 136-145 [facility] Work Phone: Triglyceride [Mass/Vol] 136 mg/dL <[address] [facility] Work Phone: Comment on above: The drugs N-Acetylcy steine and Metamizole may falsely depress this assay.Serum Triglycerides Reference Interval Normal <150 mg/dL Borderline high 150 - 199 mg/dL High 200 - 499 mg/dL Very High > or = 500 mg/dL WBC (Bld) [#/Vol] 8.0 10*3/uL 4.4-11.0 [facility] Work Phone: Bilirubin Test strip Ql (U)o n 11-23-2021 Bilirubin Ql (U) Negative Negative [facility] Work Phone: Blood erythrocytes count (nu mber/volume)on 11-23-2021 RBC (Bld) [#/Vol] 4.83 10*6/uL 4.2-5.4 [facility] Work Phone: [phone] Blood hemoglobin measurement (mass/volume)on 11-23-2021 Hemoglobin (Bld) [Mass/Vol] 14.6 g/dL 12.0-15.0 [facility] Work Phone: Blood platelet mean volumeon 11-23-2021 Platelet mean volume (Bld) [Entitic vol] 11.4 fL 6.2-12.0 [facility] Work Phone: [phone] Determination of erythrocyte mean corpuscular volume (MCV)on 11-23-2021 MCV (RBC) [Entitic vol] 90.3 fL 81-[address] [facility] Work Phone: Direct bilirubinon Bilirubin.direct [Mass/Vol] 0.11 mg/dL 0.00-0.30 [facility] Work Phone: Hematocrit Auto (Bld) [Volum e fraction]on 11-23-2021 Hematocrit (Bld) [Volume fraction] 43.6 % 37-47 [facility] Work Phone: Ketones Test strip Ql (U)on 11-23-2021 Ketones Ql (U) Negative Negative [facility] Work Phone: [phone] Laboratory - Chemistry and C hemistry - challengeon 11-23-2021 ALP [Catalytic activity/Vol] 57 U/L 45-117 [facility] Work Phone: ALT [Catalytic activity/Vol] 56 U/L 13-56 [facility] Work Phone: Cholesterol.total/Tatian[place] sterol in HDL [Mass ratio] 4.60 {ratio} [facility] Work Phone: [phone] CO2 [Moles/Vol] 25.0 mmol/L 21.0-32.0 [facility] Work Phone: Globulin (S) [Mass/Vol] 3.7 g/dL 2.2-4.[address] [facility] Work Phone: Urea nitrogen/Creatinine [Mass ratio] 25.0 mg/mg 10-20 [facility] Work Phone: [phone] Laboratory - Hematology and Cell countson 11-23-2021 Erythrocyte distribution width (RBC) [Entitic vol] 40.6 fL 35.1-43.9 [facility] Work Phone: [phone] Erythrocyte distribution width (RBC) [Ratio] 12.3 % 11.6-14.6 [facility] Work Phone: [phone] MCH (RBC) [Entitic mass] 30.2 pg 27.0-32.0 [facility] Work Phone: [phone] Nucleated RBC/100 WBC (Bld) [Ratio] 0 % 0-5 [facility] Work Phone: MCHC Auto (RBC) [Mass/Vol]on 11-23-2021 MCHC (RBC) [Mass/Vol] 33.5 g/dL 32-36 [facility] Work Phone: Nitrite Test strip Ql (U)on 11-23-2021 Nitrite Ql (U) Negative Negative [facility] Work Phone: No Panel Informationon 11-23 Estimated GFR (MDRD) Amer 134 mL/min >60 [facility] Work Phone: Comment on above: GFR Calc Estimated GFR (MDRD) Non-Af Amer 110 mL/min >60 [facility] Work Phone: Comment on above: Non- GFR Calc Platelets bldon 11-23-2021 Platelets (Bld) [#/Vol] 253 10*3/uL 150-450 [facility] Work Phone: Protein Test strip Ql (U)on 11-23-2021 Protein Ql (U) Negative Negative [facility] Work Phone: Segmented neutrophils/100 WB C Auto (Bld)on 11-23-2021 Segmented neutrophils/100 WBC (Bld) 55.3 % 47-70 [facility] Work Phone: Serum or plasma albumin archana urement (mass/volume)on 11-23-2021 Albumin [Mass/Vol] 4.3 g/dL 3.2-5.0 [facility] Work Phone: Serum or plasma albumin/glob ulin mass ratioon 11-23-2021 Albumin/Globulin [Mass ratio] 1.2 {ratio} 0.9-2.4 [facility] Work Phone: Serum or plasma calcium archana urement (mass/volume)on 11-23-2021 Calcium [Mass/Vol] 9.3 mg/dL 8.5-10.1 [facility] Work Phone: Serum or plasma cholesterol in HDL measurement (mass/volume)on 11-23-2021 Cholesterol in HDL [Mass/Vol] 52 mg/dL >40 [facility] Work Phone: Comment on above: The drugs N-Acetylcy steine and Metamizole may falsely depress this assay. Reference Range HDL <40 mg/dL Low HDL Cholesterol HDL >or= 60 mg/dL High HDL Cholesterol Serum or plasma cholesterol in VLDL measurement (mass/volume)on 11-23-2021 Cholesterol in VLDL [Mass/Vol] 27 mg/dL 5-40 [facility] Work Phone: Serum or plasma creatinine m easurement (mass/volume)on 11-23-2021 Creatinine [Mass/Vol] 0.64 mg/dL 0.55-1.02 [facility] Work Phone: Comment on above: The validity of the calculated GFR & GFRAA in patients over 70 years has not been determined. Clinical correlation is essential. Serum or plasma low density lipoprotein (LDL) cholesterol measurement (mass/volume)on 11-23-2021 Cholesterol in LDL [Mass/Vol] 161 mg/dL 0-130 [facility] Work Phone: Serum or plasma urea nitroge n measurement (mass/volume)on 08-26-2022 Urea nitrogen [Mass/Vol] 16 mg/dL 7-18 [facility] Work Phone: Serum or plasma uric acid me asurement (mass/volume)on 11-23-2021 Urate [Mass/Vol] 6.2 mg/dL 2.6-6.0 [facility] Work Phone: Comment on above: The drugs N-Acetylcy steine and Metamizole may falsely depress this assay. Thin prep Papanicolaou smear with manual screeningon 11-23-2021 Thin prep Papanicolaou smear with manual screening 30 U/L 15-37 [facility] Work Phone: Thin prep Papanicolaou smear with manual screening 6 5-15 [facility] Work Phone: Thin prep Papanicolaou smear with manual screening 186 U/L 84-246 [facility] Work Phone: Urine blood detectionon 10-30 RBC Ql (U) 250 /ul Negative [facility] Work Phone: Urine clarityon 11-23-2021 Clarity (U) Clear Clear [facility] Work Phone: Urine color determinationon 11-23-2021 Color (U) Yellow Yellow [facility] Work Phone: Urine glucose detectionon Glucose Ql (U) Normal mg/dl Normal [facility] Work Phone: [phone] Urine leukocyte esterase det ection by dipstickon 11-23-2021 Leukocyte esterase Test strip Ql (U) 25 /ul Negative [facility] Work Phone: [phone] Urine pHon 11-23-2021 pH (U) 5.0 [pH] 5.0 - 8.0 [facility] Work Phone: [phone] Urine specific gravity measu rementon 11-23-2021 Specific gravity (U) [Rel density] 1.020 1.002-1.030 [facility] Work Phone: Urobilinogen Auto test strip Ql (U)on 11-23-2021 Urobilinogen Ql (U) Normal mg/dl Normal [facility] Work Phone: Laboratory - Microbiology an d Antimicrobial susceptibilityon 11-13-2021 SARS-CoV-2 (COVID-19) RNA JO ANN+probe Ql (Unsp spec) Negative Not Detect [facility] Work Phone: Comment on above: Normal Reference Ran ge: Not DetectedMethod:(RT-PCR) real-time reverse transcriptase PCRLuminex ALL Instrument*The Food and Drug Administration (FDA) has issued an Emergency Use Authorization (EAU) for the [employer] SARS-CoV-2 Assay for the rapid detection of the virus that causes COVID-19. This test has been validated, but the FDAs independent review of this validation is pending.*Negative results do not preclude infection and should not be used as the sole basis for treatment or patient management. Optimum specimen types and timing for peak viral levels during infections caused by SARS-CoV-2 have not been determined. Collection of multiple specimens from the same patient may be necessary to detect the virus. The possibility of a false negative result should be considered if the patient has clinical presentation or has had recent exposure. Basophil percentageon 2021 Basophil percentage Not Reportable [facility] Work Phone: Erythrocyte sedimentation ra paul 11-06-2021 ESR (Bld) [Velocity] 10 mm/h 0-30 [facility] Work Phone: Laboratory - Chemistry and C hemistry - challengeon 11-06-2021 Free T4 [Mass/Vol] 0.72 ng/dL 0.76-1.46 [facility] Work Phone: No Panel Informationon 11-06 Anti-Nuclear Antibody Screen Negative Negative [facility] Work Phone: Comment on above: Performed at: [facility] [id number] Director: Dany White PhD, Phone: [phone] [employer] Antibody Not Reportable [facility] Work Phone: [employer] Antibody Not Reportable [facility] Work Phone: Thyroid Stimulating Hormone (TSH) 1.62 uIU/mL 0.358-3.74 [facility] Work Phone: Serum DNA double strand anti body assay (units/volume)on 11-06-2021 DNA double strand Ab Qn (S) Not Reportable [facility] Work Phone: Serum Nasima-1 antibody assay (u nits/volume)on 11-06-2021 Nasima-1 extractable nuclear Ab Qn (S) Not Reportable [facility] Work Phone: Serum Scl-70 extractable nuc lear antibody assay (units/volume)on 11-06-2021 SCL-70 extractable nuclear Ab Qn (S) Not Reportable [facility] Work Phone: Serum Galdamez extractable nucl ear antibody detectionon 11-06-2021 Galdamez extractable nuclear Ab Ql (S) Not Reportable [facility] Work Phone: Serum cyclic citrullinated p eptide IgG antibody assay (units/volume)on 11-06-2021 Cyclic citrullinated peptide IgG Qn 4 units 0-19 [facility] Work Phone: Comment on above: Negative <20 Weak po sitive 20 - 39 Moderate positive 40 - 59 Strong positive >59Performed at: [facility] [address] [id number] Director: Jacinto Shea MD, Phone: [phone] Serum or plasma C reactive p rotein measurement (mass/volume)on 11-06-2021 CRP [Mass/Vol] mg/L 0.0-3.0 [facility] Work Phone: Comment on above: C-Reactive Protein ( CRP) provides useful information for thediagnosis, therapy and monitoring of inflammatory processesand associated diseases. For the evaluation of Relative Riskfor Cardiovascular Disease, a High Sensitivity CRP (HSCRP)should be ordered. Serum rheumatoid factor dete ctionon 11-06-2021 Rheumatoid factor Ql (S) < 10.0 IU/mL <15 [facility] Work Phone: No Panel Informationon 10-04 POC SARS CoV-2 Antigen Negative [facility] Work Phone: Basophil percentageon 2021 Bilirubin [Mass/Vol] 0.60 mg/dL 0.20-1.00 [facility] Work Phone: Comment on above: For patients on eltr ombopag therapy, use of Dimension [place] TBIL is not recommended. Protein [Mass/Vol] 8.0 g/dL 6.4-8.2 [facility] Work Phone: WBC (Bld) [#/Vol] 7.5 10*3/uL 4.4-11.0 [facility] Work Phone: Blood erythrocytes count (nu mber/volume)on 08-02-2021 RBC (Bld) [#/Vol] 4.87 10*6/uL 4.2-5.4 [facility] Work Phone: Blood hemoglobin measurement (mass/volume)on 08-02-2021 Hemoglobin (Bld) [Mass/Vol] 14.7 g/dL 12.0-15.0 [facility] Work Phone: Blood platelet mean volumeon 08-02-2021 Platelet mean volume (Bld) [Entitic vol] 10.6 fL 6.2-12.0 [facility] Work Phone: Determination of erythrocyte mean corpuscular volume (MCV)on 08-02-2021 MCV (RBC) [Entitic vol] 86.7 fL 81-[address] [facility] Work Phone: Direct bilirubinon 2 Bilirubin.direct [Mass/Vol] 0.17 mg/dL 0.00-0.30 [facility] Work Phone: Hematocrit Auto (Bld) [Volum e fraction]on 08-02-2021 Hematocrit (Bld) [Volume fraction] 42.2 % 37-47 [facility] Work Phone: INR in Blood by Coagulation assayon 08-02-2021 INR Coag (Bld) [Relative time] 1.1 {INR} [facility] Work Phone: [phone] Laboratory - Chemistry and C hemistry - challengeon 08-02-2021 ALP [Catalytic activity/Vol] 55 U/L 45-117 [facility] Work Phone: [phone] ALT [Catalytic activity/Vol] 42 U/L 13-56 [facility] Work Phone: Globulin (S) [Mass/Vol] 3.6 g/dL 2.2-4.[address] [facility] Work Phone: [phone] Laboratory - Coagulationon 0 08-02-2021 aPTT Coag (Bld) [Time] 34.3 s 24.1-36.[address] [facility] Work Phone: [phone] PT Coag (PPP) [Time] 13.4 s 11.7-14.9 [facility] Work Phone: [phone] Laboratory - Hematology and Cell countson 08-02-2021 Erythrocyte distribution width (RBC) [Entitic vol] 38.4 fL 35.1-43.9 [facility] Work Phone: [phone] Erythrocyte distribution width (RBC) [Ratio] 12.2 % 11.6-14.6 [facility] Work Phone: [phone] MCH (RBC) [Entitic mass] 30.2 pg 27.0-32.0 [facility] Work Phone: MCHC Auto (RBC) [Mass/Vol]on 08-02-2021 MCHC (RBC) [Mass/Vol] 34.8 g/dL 32-36 [facility] Work Phone: [phone] Platelets bldon 08-02-2021 Platelets (Bld) [#/Vol] 163 10*3/uL 150-450 [facility] Work Phone: [phone] Serum or plasma albumin archana urement (mass/volume)on 08-02-2021 Albumin [Mass/Vol] 4.4 g/dL 3.2-5.0 [facility] Work Phone: [phone] Thin prep Papanicolaou smear with manual screeningon 08-02-2021 Thin prep Papanicolaou smear with manual screening 22 U/L 15-37 [facility] Work Phone: Serum or plasma cortisol zak surement (mass/volume)on 07-28-2021 Cortisol [Mass/Vol] 23.80 ug/dL 3.44-22.45 [facility] Work Phone: Comment on above: Adult (AM) 5.27 - 22 .45 ug/dL Adult (PM) 3.44 - 16.76 ug/dLPlease note revised CORTISOL reference range effective 2019. Laboratory - Chemistry and C hemistry - challengeon 07-25-2021 Free T4 [Mass/Vol] 0.76 ng/dL 0.76-1.46 [facility] Work Phone: No Panel Informationon 07-25 Dehydroepiandrosterone Sulfate 118.0 ug/dL 57.3-279.2 [facility] Work Phone: Free Triiodothyronine (T3) pg/dL 2.8 pg/mL 2.18-3.98 [facility] Work Phone: Reverse Triiodothyronine (T3) 12.6 ng/dL 9.2-24.1 [facility] Work Phone: Comment on above: This test was develo ped and its performance characteristicsdetermined by [employer]. It has not been cleared orapproved by the Food and Drug Administration.Performed at: [facility] [employer] [id number] Director: Dany White PhD, Phone: [phone] at: [facility] [address] [id number] Director: Jacinto Shea MD, Phone: [phone] Thyroid Stimulating Hormone (TSH) 1.29 uIU/mL 0.358-3.74 [facility] Work Phone: Total Triiodothyronine 1.10 ng/mL 0.6-1.81 [facility] Work Phone: Serum or plasma cortisol zak surement (mass/volume)on 07-25-2021 Cortisol [Mass/Vol] 2.80 ug/dL 3.44-22.45 [facility] Work Phone: Comment on above: Adult (AM) 5.27 - 22 .45 ug/dL Adult (PM) 3.44 - 16.76 ug/dLPlease note revised CORTISOL reference range effective 2019. Laboratory - Microbiology an d Antimicrobial susceptibilityon 03-26-2021 SARS-CoV-2 (COVID-19) RNA JO ANN+probe Ql (Unsp spec) Detected Not Detect [facility] Work Phone: Comment on above: Normal Reference Ran ge: Not DetectedMethod:(RT-PCR) real-time reverse transcriptase PCRLuminex [employer] Instrument*The Food and Drug Administration (FDA) has issued an Emergency Use Authorization (EAU) for the ALL SARS-CoV-2 Assay for the rapid detection of the virus that causes COVID-19. This test has been validated, but the FDAs independent review of this validation is pending.*Negative results do not preclude infection and should not be used as the sole basis for treatment or patient management. Optimum specimen types and timing for peak viral levels during infections caused by SARS-CoV-2 have not been determined. Collection of multiple specimens from the same patient may be necessary to detect the virus. The possibility of a false negative result should be considered if the patient has clinical presentation or has had recent exposure. Vital Signs Date Time Vital Sign Value Performing Clinician Faci lity 01-06-2022 13:46-0400 Body height 162.[address] Librado Ybarra Work Phone: [facility] Work Phone: 01-06-2022 13:46-0400 Body mass index (BMI) [Ratio] 37.4 kg/m2 Dr. Librado Ybarra Work Phone: [facility] Work Phone: 01-06-2022 13:46-0400 Body temperature 97.6 [degF] Dr. Librado Ybarra Work Phone: [facility] Work Phone: 01-06-2022 13:46-0400 Body weight [address] Librado Ybarra Work Phone: [facility] Work Phone: 01-06-2022 13:46-0400 Diastolic blood pressure 109 mm[Hg] Dr. Librado Ybarra Work Phone: [facility] Work Phone: 01-06-2022 13:46-0400 Heart rate 76 /min Dr. Librado Ybarra Work Phone: [facility] Work Phone: 01-06-2022 13:46-0400 Respiratory rate 18 /min Dr. Librado Ybarra Work Phone: [facility] Work Phone: 01-06-2022 13:46-0400 SaO2% (BldA) [Mass fraction] 99 % Dr. Librado Ybarra Work Phone: [facility] Work Phone: 01-06-2022 13:46-0400 Systolic blood pressure 159 mm[Hg] Dr. Librado Ybarra Work Phone: [facility] Work Phone: 10-04-2021 17:24-0400 Body temperature 98.8 [degF] Dr. Librado Ybarra Work Phone: [facility] Work Phone: 10-04-2021 17:24-0400 Diastolic blood pressure 78 mm[Hg] Dr. Librado Ybarra Work Phone: [facility] Work Phone: 10-04-2021 17:24-0400 Heart rate 78 /min Dr. Librado Ybarra Work Phone: [facility] Work Phone: 10-04-2021 17:24-0400 Respiratory rate 14 /min Dr. Librado Ybarra Work Phone: [facility] Work Phone: 10-04-2021 17:24-0400 Systolic blood pressure 120 mm[Hg] Dr. Librado Ybarra Work Phone: [facility] Work Phone: 06-17-2021 10:12-0400 Respiratory rate 16 /min [facility] Work Phone: 06-17-2021 08:31-0400 Body height 162.56 cm [facility] Work Phone: 06-17-2021 08:31-0400 Body mass index (BMI) [Ratio] 35.5 kg/m2 [facility] Work Phone: 06-17-2021 08:31-0400 Body temperature 97.2 [degF] [facility] Work Phone: 06-17-2021 08:31-0400 Body weight 94 kg [facility] Work Phone: 06-17-2021 08:31-0400 Diastolic blood pressure 63 mm[Hg] [facility] Work Phone: 06-17-2021 08:31-0400 Heart rate 82 /min [facility] Work Phone: 06-17-2021 08:31-0400 SaO2% (BldA) [Mass fraction] 95 % [facility] Work Phone: 06-17-2021 08:31-0400 Systolic blood pressure 132 mm[Hg] [facility] Work Phone: 03-30-2021 12:45-0500 Body temperature 99 [degF] [facility] Work Phone: 03-30-2021 12:45-0500 Diastolic blood pressure 84 mm[Hg] [facility] Work Phone: 03-30-2021 12:45-0500 Heart rate 73 /min [facility] Work Phone: 03-30-2021 12:45-0500 Respiratory rate 16 /min [facility] Work Phone: 03-30-2021 12:45-0500 SaO2% (BldA) [Mass fraction] 99 % [facility] Work Phone: 03-30-2021 12:45-0500 Systolic blood pressure 129 mm[Hg] [facility] Work Phone: 03-30-2021 11:16-0500 Body mass index (BMI) [Ratio] 36 kg/m2 [facility] Work Phone: 03-30-2021 11:16-0500 Body weight 95.25 kg [facility] Work Phone: Encounters Encounter Date Encounter Type Care Provider Facility Start: 01-21-2025 End: 01-21-2025 ambulatory [facility] Facility:[facility] Start: 01-18-2025 Encounter for other preprocedural examination Mony Cisneros [facility] Start: 01-18-2025 ambulatory [facility] Facility: [facility] Start: 01-18-2025 End: 01-18-2025 [facility] Facility:[facility] Start: 01-17-2025 ambulatory [facility] Start: 12-21-2024 End: 12-21-2024 ambulatory [facility] Start: 12-21-2024 End: 12-21-2024 ambulatory [facility] Facility:[facility] Start: 12-06-2024 ambulatory [facility] Start: 10-22-2024 End: 10-22-2024 ambulatory Librado WolffTate [facility] Start: 10-05-2024 End: 10-05-2024 ambulatory Hali Ruiz [facility] Start: 10-05-2024 End: 10-05-2024 [facility] Start: 09-30-2024 End: 09-30-2024 [facility]ulatory [facility] Start: 09-29-2024 End: 09-29-2024 ambulatory Hali Atanasov Facility:[facility] Start: 08-31-2024 End: 08-31-2024 ambulatory [facility] Facility:[facility] Start: 08-10-2024 End: 08-10-2024 ambulatory [facility] Facility:[facility] Start: 07-20-2024 End: 07-20-2024 Emergency department patient visit [facility] Facility:[facility] Start: 07-19-2024 End: 07-19-2024 ambulatory [facility] Facility:[facility] Start: 07-13-2024 End: 07-13-2024 ambulatory [facility] Start: 06-16-2024 End: 06-16-2024 ambulatory MELISSAKARAN VERGARA [facility] Start: 06-16-2024 End: 06-16-2024 Subsequent hospital visit by physician Melissa Vergara GRADES 6 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 Start: 06-03-[address] [facility] Start: 05-31-2024 End: 05-31-2024 ambulatory [facility] Start: 05-28-2024 ambulatory [facility] Start: 05-28-2024 Encounter for other preprocedural examination [facility] Start: 05-25-2024 End: 05-25-2024 ambulatory [facility] Facility:[facility] Start: 05-11-2024 ambulatory [facility] Start: 03-10-2024 End: 03-10-2024 ambulatory [facility] Start: 03-04-2024 End: 03-04-2024 ambulatory [facility] Start: 01-06-2022 End: 01-06-2022 Emergency department patient visit Dr. Librado Ybarra Work Phone: [facility] Start: 01-03-2022 End: 01-03-[address] Librado Ybarra Work Phone: [facility] Work Phone: Start: 01-03-2022 End: 01-03-[address] Librado Ybarra Work Phone: [facility] [place] Start: 11-23-[address] [facility] Start: 11-13-[address] Librado kenyon Work Phone: [facility] Start: 11-06-2021 End: 11-06-[address] Librado Ybarra Work Phone: [facility] Start: 10-04-2021 End: 10-04-[address] Librado Ybarra Work Phone: [facility] Start: 08-14-2021 End: 08-14-2021 Patient encounter procedure [facility], Specimen Start: 08-02-2021 End: 08-02-2021 Patient encounter procedure [facility], [place] [facility] Start: 07-28-2021 End: 07-28-2021 Patient encounter procedure [facility] Start: 07-25-2021 End: 07-25-2021 Patient encounter procedure [facility], [place] [facility] Start: 06-30-2021 End: 06-30-2021 Patient encounter procedure [facility], [facility] Start: 06-17-2021 End: 06-17-2021 Emergency department patient visit [facility] Start: 05-23-2021 End: 05-23-2021 Patient encounter procedure [facility], Specimen Start: 03-30-2021 End: 03-30-2021 Patient encounter procedure [facility] 3 Outp Start: 03-26-2021 Patient encounter procedure [facility], Specimen Procedures Date Procedure Procedure Detail Performing Clinician Start: 06-16-2024 Hepatitis b surf ant ibody hbsab Melissa Vergara GRADES 6 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 Librado Ybarra Work Phone: Start: 06-30-2021 US scan of thyroid Start: 06-17-2021 X-ray of cervical spine Start: 06-17-2021 Plain X-ray of clavicle Viral antigen assay Dr. Librado Ybarra Work Phone: Plan of Treatment Date Care Activity Detail Author Start: 02-07-2025 ambulatory Ambulatory Facility:[facility] Start: 11-30-2023 COVID-19 (2023- 5 season) COVID-19 (2023- season) [facility] Start: 11-30-2023 FLU (#1) FLU (#1) [facility] Start: 01-06-2022 Referral to service [facility] Work Phone: Start: 01-06-2022 End: 01-06-2022 Suicide precautions [facility] Work Phone: Start: 12-27-2002 Hepatitis B (1 of 3 - 19+ 3-dose series) Hepatitis B (1 of 3 - 19+ 3-dose series) [facility] Start: 1999 MenB (1 of 2 - MenB 2-Dose Series Bexsero) MenB (1 of 2 - MenB 2-Dose Series Bexsero) [facility] Start: 12-27-1990 Tetanus Diphtheria a nd Pertussis Vaccines (1 - Tdap) Tetanus Diphtheria and Pertussis Vaccines (1 - Tdap) [facility] Start: 12-27-1984 MMR (1 of 1 - Standa rd series) MMR (1 of 1 - Standard series) [facility] Patient Education [facility] Work Phone: Patient referral [facility] Work Phone: End: 06-16-2024 Quantiferon TB Gold [facility] Work Phone: Comment on above: For lab collect this frequency defaults to the next routine lab draw time. Routine times: 0600; 1100; 1400; 1900; 2200 for 1 Occurrences starting 06/16/2024 until 06/16/2024 Immunizations Immunization Date Immunization Notes Care Provider Patric hawkins 10-11-2021 measles, mumps and rubella virus vaccine Dr. Librado Ybarra Work Phone: [facility] Work Phone: 08-30-2021 measles, mumps and rubella virus vaccine Dr. Librado Ybarra Work Phone: [facility] Work Phone: 07-27-2020 Covid (Pfizer) Dr. Librado knox Work Phone: [facility] Work Phone: 07-02-2020 Covid (Pfizer) Dr. Librado knox Work Phone: [facility] Work Phone: 02-16-2020 influenza, seasonal, injectable Dr. Librado Ybarra Work Phone: [facility] Work Phone: 09-06-2019 tetanus toxoid, redu mukul diphtheria toxoid, and acellular pertussis vaccine, adsorbed [facility] Work Phone: 12-24-2018 influenza, seasonal, injectable [facility] Work Phone: 04-01-2018 tetanus toxoid, redu mukul diphtheria toxoid, and acellular pertussis vaccine, adsorbed [facility] Work Phone: 01-12-2018 influenza, seasonal, injectable [facility] Work Phone: 02-06-2017 influenza, seasonal, injectable [facility] Work Phone: 02-15-2016 influenza, seasonal, injectable [facility] Work Phone: 12-29-2014 influenza, seasonal, injectable [facility] Work Phone: 12-29-2013 influenza, seasonal, injectable [facility] Work Phone: 03-08-2013 Influenza virus vaccine [facility] Work Phone: 03-08-2013 tetanus toxoid, redu mukul diphtheria toxoid, and acellular pertussis vaccine, adsorbed [facility] Work Phone: 11-19-1996 measles, mumps and rubella virus vaccine Dr. Librado Ybarra Work Phone: [facility] Work Phone: Payers Date Payer Category Payer Unknown [employer] [id number] 2023 Self-pay [id number] 2023 Unknown [id number] 2016 Unknown [id number] 1985 Unknown [id number] 1983 Unknown [id number] 2.16840.1.387696.3.579.2.651 1983 Unknown [id number] 2.16840.1.021936.3.579.2.651 1983 Unknown [id number] 2.840.1.541018.3.579.2.479 Unknown [id number] Unknown [id number] Unknown [id number] Unknown [id number] Unknown [employer] 0 [id number] Unknown [id number] Unknown [id number] 2.840.1.202237.3.579.2.462 Unknown [id number] 2.840.1.008670.3.579.2.462 Unknown [id number] 2.840.1.352305.3.579.2.462 Unknown [id number] 2.840.1.683837.3.579.2.462 Unknown [id number] 2.840.1.008446.3.579.2.462 Unknown [id number] 2.840.1.857129.3.579.2.462 Unknown [id number] 2.16840.1.702266.3.579.2.462 Unknown [id number] 2.16840.1.061724.3.579.2.462 Unknown [id number] 2.16840.1.738847.3.579.2.462 Unknown [id number] 2.16.840.1.728982.3.579.2.462 Unknown [id number] 2.16840.1.953044.3.579.2.462 Unknown [id number] 2.16.840.1.619744.3.579.2.462 Unknown [id number] 2.16.840.1.527747.3.579.2.462 Unknown [id number] 2.16.840.1.906423.3.579.2.462 Unknown [id number] 2.16.840.1.856497.3.579.2.462 Unknown [id number] 2.16.840.1.791407.3.579.2.462 Unknown [id number] 2.16.840.1.668894.3.579.2.462 Unknown [id number] 2.16.840.1.587685.3.579.2.462 Unknown [id number] 2.16.840.1.187797.3.579.2.462 Unknown [id number] 2.16.840.1.016850.3.579.2.462 Unknown [id number] 2.16.840.1.207078.3.579.2.462 Unknown [id number] 2.16.840.1.734760.3.579.2.462 Unknown [id number] 2.16.840.1.671982.3.579.2.462 Unknown [id number] 2.16.840.1.835255.3.579.2.462 Unknown [id number] 2.16.840.1.328432.3.579.2.462 Unknown [id number] 2.16.840.1.626593.3.579.2.462 Social History Date Type Detail Facility [facility] Work Phone: Start: 06-17-2021 End: 01-06-2022 Tobacco smoking status NHIS Unknown if ever smoked [facility] Work Phone: Start: 09-17-2019 None [facility] Work Phone: Start: 02-15-2019 [facility] Start: 1985 Sex Assigned At Female [facility] Work Phone: Start: 1985 Sex assigned at Not on file [facility] Gender identity Not on file [facility] Goals Date Patient Goal Desired Activity /State Mental Status Date Assessment Result Facility 03-30-2021 Cognitive function Awake;Alert;A ppropriate;Fol lows Commands [facility] Work Phone: Clinical Note 01-17-2025 Note Date & Type Note Facility 01-17-2025 Note [facility] Medical Records Department [address] [place] [address] History Physical Exam 01/17/25 1736 MR#: [id number] Acct: [id number] Name: BEATRICE BORREGO Rep #: [id number] : 1985 39 From: Mony Cisneros MD PCP: Dr. 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 Required: No Is patient in pain?: No Allergies citalopram hydrobromide (From Celexa) Allergy (Verified 12/21/24 10:38) Hives Penicillins (PCN) Allergy (Verified 12/21/24 10:38) Hives tetanus immune globulin Allergy (Verified 12/21/24 10:38) Hives liraglutide (From Victoza) Adverse Reaction (Verified 12/21/24 10:38) Nausea/Vom/Diarrhea morphine Adverse Reaction (Verified 12/21/24 10:38) Itching Medications ???Medication ???Instructions ???Recorded ???Confirmed ???Type Lactobacillus acidophilus 250 500 mmu cells PO DAILY 05/20/24 12/21/24 History million cell capsule (Probiotic Acidophilus) ashwagandha extract 62.5 mg 62.5 mg PO DAILY 05/20/24 12/21/24 History chewable tablet (Ashnikdha root leaf extract) cholecalciferol (vitamin D3) 50 50 mcg PO DAILY 05/20/24 12/21/24 History mcg (2,000 unit) capsule (Vitamin D3) omega 4-idp-bon-fish oil 1,200 mg 1 cap PO DAILY 05/20/24 12/21/24 History (144 mg-216 mg) capsule (Fish Oil) ibuprofen 200 mg tablet (Advil) 800 mg PO Q6H PRN pain 07/20/24 12/21/24 History cyclobenzaprine 10 mg tablet 10 mg PO TID PRN muscle spasm #30 07/27/24 5 Rx tabs omeprazole 40 mg capsule,delayed 40 mg PO BID 90 days #180 caps 08/11/24 12/21/24 R x release Junel Fe 24 1 mg-20 mcg (24)/75 mg 1 tab PO ONCE #84 tabs 09/15/24 12/21/24 Rx (4) tablet (norethindrone-e.estradiol-iron) ondansetron 4 mg disintegrating 4 mg PO Q8H PRN nausea and 09/30/24 12/21/24 Rx tablet vomiting #30 tabs mecobalamin (vitamin B12) 500 mcg 2,500 mcg PO DAILY 10/22/24 12/21/24 History chewable tablet bupropion HCl 150 mg 24 hr tablet, 150 mg PO QAM #90 TABLETS 12/06/24 12/21/24 Rx extended release escitalopram oxalate 10 mg tablet 15 mg (1.5 x 10 mg) PO QHS 90 days 12/06/24 Rx #135 tabs lorazepam 0.5 mg tablet 0.5 mg PO DAILY PRN anxiety #30 12/06/24 12/21/24 Rx tabs Is last menstrual period known: No Post menopausal: No Patient : No : No PFSH Medical History Carpal tunnel syndrome Flu-like symptoms Vapes nicotine containing substance Diabetes Low iron CPAP (continuous positive airway pressure) dependence Hypersomnia Major depressive disorder Encounter for screening laboratory testing for COVID-19 virus Acute bronchitis, unspecified Wears contact lenses Wears glasses Depression Anxiety Gastric reflux History of echocardiogram Cardiology follow-up encounter Hx of pilonidal cyst delivery delivered Surgical History H/O dilation and curettage History of hysteroscopy Previous section H/O repair of right rotator cuff History of appendectomy Hx of cholecystectomy History of tonsillectomy Family History Mother Hypertension High cholesterol Alcoholism Arthritis Depression Sister Thyroid cancer Depression Colon cancer Arthritis Autoimmune disorder Thyroid disorder Father Alcoholism Anxiety Depression Myocardial infarction Psychiatric care Grandfather Lung cancer Aunt Esophageal cancer Social History household members: spouse and children housing: house number of children: 2 current occupational status: employed current occupation: [employer] pets and animals: Yes pets and animals: dog(s) Smoking Status: Former smoker alcohol intake: current substance use type: does not use what type of physical activity do you participate in: walking and weight training frequency: 3-4 times per week do you feel safe at home: Yes additional social history: Elias HPI hysterectomy pre-op Details: The patient is a 38-year-old female presenting with breakthrough bleeding and a history of endometrial hyperplasia and adenomyosis. She has tried an IUD and oral contraceptive pills, experiencing irregular bleeding and cramping with the IUD, and breakthrough bleeding with mood changes on the pill. In June, an ultrasound at the emergency room showed a slightly enlarged uterus and a 2 cm fibroid. The patient jones (more content not included)... [facility] Clinical Note 05-25-2024 Note Date & Type Note Facility 05-25-2024 Note [facility] Medical Records Department [address] [place] [address] History Physical Exam 05/25/24 1157 MR#: [id number] Acct: [id number] Name: BEATRICE BORREGO Rep #: [id number] : 1985 38 From: Erick Friend DO PCP: Dr. Librado Ybarra, DO Status:[facility] Location: [place] [address] HPI - General General Date of Admission: 05/25/24 Date of Service: 05/25/24 Chief Complaint: family history of colon cancer and heartburn HPI Narrative BEATRICE BORREGO, is a 38 F who presents to the office today for establishment with [facility]. Pt is here today to get scheduled for a colonoscopy. Her sister was diagnosed with colon cancer at age 50. She was able to have it removed without colon resection. Pt does have numerous GI symptoms including diarrhea, heartburn, nausea and abdominal pain. She feels most of these are related to her medications metformin and semaglutide. She has 2-3 episodes of diarrhea per day since starting metformin. She did have loose stools prior to this about once a week. She has nausea almost daily and is on PPI for heartburn and has been for years. She had a colonoscopy and EGD in 2013 but is unsure what kind of Symptoms prompted this. The colonoscopy and EGD was without abnormalities. She is s/p cholecystectomy [facility] Medical History Vapes nicotine containing substance Diabetes Low iron CPAP (continuous positive airway pressure) dependence Hypersomnia Major depressive disorder Encounter for screening laboratory testing for COVID-19 virus Acute bronchitis, unspecified Wears contact lenses Wears glasses Depression Anxiety Gastric reflux History of echocardiogram Cardiology follow-up encounter Hx of pilonidal cyst delivery delivered Home Medications ???Medication ???Instructions ???Recorded ???Last Taken ???Type omeprazole 20 mg capsule,delayed 20 mg PO DAILY 01/22/22 05/24/24 H istory release lorazepam 0.5 mg tablet 0.5 mg PO DAILY PRN anxiety #30 Unknown Rx tabs ferrous fumarate 324 mg (106 mg 324 mg PO DAILY 03/10/24 Unknown H istory iron) tablet metformin 1,000 mg tablet 1,000 mg PO QDAY 03/10/24 05/24/24 History Lactobacillus acidophilus 250 500 mmu cells PO DAILY 05/20/24 Un known History million cell capsule (Probiotic Acidophilus) ashwagandha extract 62.5 mg 62.5 mg PO DAILY 05/20/24 05/24/24 History chewable tablet (Ashwagandha root leaf extract) bupropion HCl 150 mg 24 hr tablet, 150 mg PO QHS 05/20/24 05/24/24 History extended release (Wellbutrin XL) cholecalciferol (vitamin D3) 50 50 mcg PO DAILY 05/20/24 Unknown H istory mcg (2,000 unit) capsule (Vitamin D3) cyanocobalamin-liver extract tablet 1 tab PO DAILY 05/20/24 Unknown History escitalopram oxalate 10 mg tablet 10 mg PO QHS 05/20/24 05/24/24 Hi story omega 4-lyk-rqo-fish oil 1,200 mg 1 cap PO DAILY 05/20/24 Unknown H istory (144 mg-216 mg) capsule (Fish Oil) Allergy/AdvReac Type Severity Reaction Status Date / Time citalopram hydrobromide Allergy Hives Verified 05/25/24 11:46 (From Celexa) Penicillins (PCN) Allergy Hives Verified 05/25/24 11:46 tetanus immune globulin Allergy Hives Verified 05/25/24 11:46 liraglutide (From Victoza) AdvReac Nausea/Vom/ Verified 05/25/24 11:46 Diarrhea morphine AdvReac Itching Verified 05/25/24 11:46 Family History Mother Hypertension High cholesterol Sister Thyroid disorder cancer Cancer Surgical History History of hysteroscopy Previous section H/O repair of right rotator cuff History of appendectomy Hx of cholecystectomy History of tonsillectomy Social History household members: spouse and children housing: house current occupational status: employed 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 pets and animals: Yes pets and animals: dog(s) Smoking Status: Former smoker alcohol intake: never substance use type: does not use what type of physical activity do you participate in: walking and weight training frequency: 3-4 times per week do you feel safe at home: Yes ROS Constitutional Constitutional: Denies fatigue, fever(s), poor appetite, weight gain or weight loss Gastrointestinal Gastrointestinal: Denies belching, bloating, change in bowel habits, change in stool character, chewing difficulty, coffee ground emesis, constipation, cramping, diarrhea, dyspepsia, dysphagia, early satiety, excessive flatus, fecal incontinence, heartburn, hematemesis, hematochezia, hemorrhoids, loose stools, melena, nausea, odynophagia, rectal bleeding, tenesmus, vomiting or weight changes Barby (more content not included)... [facility] Progress note 10-17-2020 Note Date & Type Note Facility 10-17-2020 Note HNO ID: [id number] Author: Diaan Cantor Service: ? Author Type: ? Type: [...] Message Sent to Practice: NO Navigation Signature: Diana Cantor October 17, 2020 1:37 PM [facility] Clinical Note 10-17-2020 Note Date & Type Note Facility 10-17-2020 Note Patient Outreach (SANDY TNAV) BEATRICE BORREGO ([id number]) 1985 F Date Time Provider Department 10/17/20 DIANA DELAROSA (KRISTY) CHAPARRO During your visit today, we recorded the following information about you: Diana Cantor 10/17/2020 1:38 PM Signed [facility] NAVIGATION [...] Message Sent to Practice: NO Navigation Signature: Diana Cantor October 17, 2020 1:37 PM Allergies As [...] ovarian cancer [Z80.41] 02/19/2013 Encounter Status:Closed by DIANA MEDEL on 10/17/20 [facility] Evaluation note Note Date & Type Note Facility Evaluation note No assessment information availa ble [facility] Work Phone: Evaluation note Note Date & Type Note Facility Evaluation note Diagnosis Onset Date Acute bronchitis, unspecified acute Encounter for screening labo ratory testing for COVID-19 virus acute [facility] Work Phone: Evaluation note Note Date & Type Note Facility Evaluation note Diagnosis Pre-employment health screening examination- Primary Health examination of defined subpopulation documented in this encounter [facility] Summary Purpose Family History No Family History Records Found Relationship Condition Age at Onset Recorded Date/T naldo mother Hypertension Unknown High blood cholesterol Unknown sister Disorder of thyroid Unknown Malignant neoplasm Unknown Advance Directives No Advanced Directives Records Found Advance Directive Response Recorded Date/ Time Advance Directives No October 25 3:18pm Living Will No June 17, 2021 8:39am Power of Bumper Straightener No June 17 8:39am Advance Directive Response Recorded Date/ Time Advance Directives No October 25 3:18pm Living Will No January 06 2:01pm Power of Bumper Straightener No January 06 022 2:01pm Chief Complaint and Reason for Visit Chief Complaint COVID POS neck pain Chief Complaint COVID POS neck pain 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 Chief Complaint neck pain 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 AM CORTISOL Chief Complaint AM CORTISOL POSS EAR INFECTION WAS TO FAX ORDER THIS MORNING Reason for Visit Acute bronchitis, un specified Encounter for screening laboratory testing for COVID-19 virus Chief Complaint POSS EAR INFECTION WAS TO FAX ORDER THIS MORNING R ANTERIOR KNEE PAIN MENTAL HEALTH Reason for Visit Acute bronchitis, un specified Encounter for screening laboratory testing for COVID-19 virus Additional Source Comments INFORMATION SOURCE (unrecogn ized section and content) DATE CREATED AUTHOR 05/23/2021 [facility] DATE CREATED AUTHOR AUTHOR'S ORGANIZ ATION 03/11/2024 [facility] DATE CREATED AUTHOR AUTHOR'S ORGANIZ ATION [facility]2024 [facility] DATE CREATED AUTHOR AUTHOR'S ORGANIZ ATION 06/12/2024 [facility] DATE CREATED AUTHOR AUTHOR'S ORGANIZ ATION 06/22/2024 [facility] DATE CREATED AUTHOR AUTHOR'S ORGANIZ ATION 01/23/2025 [facility] FOR RECORDS PERTAINING TO PATIENTS WHO ARE [...] BE BASED ON THE PRIMARY CLINICAL RECORDS. [employer] provides no warranty or guarantee of the accuracy or completeness of information in this document.
[2025-01-25 01:22] LABS: Hematocrit 26.5 % (37-47); Hemoglobin 9.5 g/dL (12.0-15.0); Immature Granulocytes Count 0.090 X10^3/uL (0.0-0.0); Mean Corp Hgb Conc 35.8 g/dL (32-36); Mean Corpuscular Volume 85.5 fL (81-99); Mean Platelet Vol. 10.2 fl (6.2-12.0); NRBC Flagged by Analyzer 0 % (0-5); Platelet Count 207 K/mm3 (150-450); RBC Distribution Width CV 12.6 % (11.6-14.6); RBC Distribution Width SD 37.8 fl (35.1-43.9); Red Blood Count 3.10 M/mm3 (4.2-5.4); White Blood Count 12.0 K/mm3 (4.4-11.0)
--- NOTE | 2025-01-25 01:30 | CT_ITS ---
PROCEDURE: CTA CHST, ABD, PEL W AND/OR WO 01/25/2025 REASON FOR EXAM: CHEST/ABD PAIN S/P SURGERY TECHNIQUE: Procedure Code: CTCTA.CHAP.2 Modality: CT Procedure: CTA CHST, ABD, PEL W AND/OR WO Coronal and Sagittal reconstruction series were provided. One or more dose reduction techniques were used (e.g., Automated exposure control, adjustment of the mA and/or kV according to patient size, use of iterative reconstruction technique. CONTRAST: Isovue 370 VOLUME: 100 mL RADIATION DOSE SUMMARY: CTDlvol: 19.2 mGy DLP: 1288 mGycm COMPARISON: None. FINDINGS: Recent hysterectomy. Acute hematoma is noted in the surgical bed measuring 7.5 x 4.[address] evidence of active bleeding during the time of the exam. Mild amount of surrounding free acute hemorrhagic products in the pelvis. Prior appendectomy. Prior cholecystectomy. Mild edema of the lower aspect of the anterior abdominal wall, probably benign finding secondary to recent intervention. Normal enhancement of the main pulmonary artery and right and left pulmonary arteries. Normal enhancement of the bilateral peripheral pulmonary arteries. There is no demonstrated pulmonary embolism. Normal thoracic aorta and visualized great vessels. There is no demonstrated aortic dissection. Normal heart and pericardium. Normal mediastinum. Normal hilar regions. Normal visualized trachea and bronchi. The lungs are well expanded. Normal pulmonary parenchyma. Normal pleura. Normal chest wall structures. Normal osseous structures. Normal liver. Normal extrahepatic biliary system. Normal spleen. Normal pancreas. Normal bilateral adrenal glands. Normal size of the right kidney. There is no right renal mass. There are no right renal calculi. There is no right hydronephrosis. Normal visualized right ureter. Normal size of the left kidney. There is no left renal mass. There are no left renal calculi. There is no left hydronephrosis. Normal visualized left ureter. Normal visualized stomach. Normal small intestine. Normal colon. Normal abdominal aorta. Normal inferior vena cava. Normal retroperitoneum. Normal urinary bladder. There is no pelvic mass lesion or lymphadenopathy. Normal osseous structures. CT/CTA Chst, Abd, Pel W and/or WO IMPRESSION: Recent hysterectomy. Acute hematoma is noted in the surgical bed measuring 7.5 x 4.[address] e vidence of active bleeding during the time of the exam. Mild amount of surrounding free acute hemorrhagic products in the pelvis. Prior appendectomy. Prior cholecystectomy. Mild edema of the lower aspect of the anterior abdominal wall, probably benign finding secondary to recent intervention. Reading Location: [facility]
[2025-01-25 01:32] LABS: Prothrombin Time (Protime)PT. 14.0 SECONDS (11.7-14.9)
[2025-01-25 01:33] LABS: Partial Thromboplast Time 32.0 Seconds (24.1-36.2)
[2025-01-25 01:42] LABS: AST(SGOT) 45 U/L (<=31); Alanine Aminotransfer ALT/SGPT 58 U/L (<=34); Albumin, Serum 4.0 g/dL (3.5-5.0); Alkaline Phosphatase 64 U/L (35-104); Anion Gap 9 (5-15); BUN 12 mg/dL (4-19); BUN/Creat Ratio 19.8 RATIO (10-20); Bilirubin, Direct 0.40 mg/dL (0.00-0.30); Calcium,Total 9.0 mg/dL (7.6-11.0); Carbon Dioxide 24.6 mmol/L (21.0-32.0); Chloride 102 mmol/L (98-108); Estimated Creatinine Clearance 131.83 ml/min (50-250); Globulin 2.7 g/dL (2.2-4.2); Glucose 112 mg/dL (70-99); Lipase 16 U/L (13-75); Potassium 3.8 mmol/L (3.3-5.1)
[2025-01-25] MEDS: 0.9% Normal Saline (1000mL) 1,000 ML 999 ML IV (01:51)
[2025-01-25 01:57] LABS: Mucous, Urine 0 SEEN /hpf (<or=2+)
[2025-01-25 01:59] LABS: Color, Urine Yellow (Yellow); Glucose, Dipstick Normal (Normal); Ketone-Dipstick Negative (Negative); Leukocyte Esterase-Dipstick Negative /ul (Negative); Nitrite-Dipstick Negative (Negative); Occult Blood-Urine Negative /ul (Negative); Protein-Dipstick 15 mg/dl (Negative); Specific Gravity, Urine 1.010 (1.002-1.030); Urine Bilirubin Dipstick Negative (Negative)
[2025-01-25 02:12] LABS: Red Blood Cells-Urine 0-5 SEEN /hpf (0-5)
[2025-01-25 02:13] LABS: Squamous Epithelial Cells - UA 0-5 SEEN /hpf (5-10)
--- NOTE | 2025-01-25 02:56 | EX.ED.DYSGE1 ---
HPI History of Present Illness Chief Complaint: Fever Informant: patient Narrative Narrative: Patient is a 39-year-old female with past medical history of anxiety and depression. She states that roughly 1 week ago she underwent a laparoscopic hysterectomy. She states she has been doing well but in the last day or so has noticed increased bruising and pain along the left abdomen and then today spiked a fever of 101. She states that there are no known sick symptoms such as congestion cough sore throat dysuria nausea vomiting or diarrhea. Patient also denies any known sick contacts at home. however with her recent procedure she was concern for an infectious process and therefore comes in for evaluation. [facility] Medical History Hyperplasia of endometrium determined by biopsy Frequency of urination Back pain Colonoscopy planned Former smoker History of Holter monitoring Carpal tunnel syndrome Flu-like symptoms Vapes nicotine containing substance CPAP (continuous positive airway pressure) dependence Hypersomnia Major depressive disorder Encounter for screening laboratory testing for COVID-19 virus Acute bronchitis, unspecified Wears contact lenses Wears glasses Depression Anxiety Gastric reflux History of echocardiogram Cardiology follow-up encounter Hx of pilonidal cyst delivery delivered Home Medications ?Medication ?Instructions ?Recorded ?Last Taken ?Type Lactobacillus acidophilus 250 500 mmu cells PO DAILY 05/20/24 01/04/25 History million cell capsule (Probiotic Acidophilus) cholecalciferol (vitamin D3) 50 50 mcg PO DAILY 05/20/24 01/04/25 History mcg (2,000 unit) capsule (Vitamin D3) omega 4-[id number]-yxm-fish oil 1,200 mg 1 cap PO DAILY 05/20/24 01/04/25 History (144 mg-216 mg) capsule (Fish Oil) ibuprofen 200 mg tablet (Advil) 800 mg PO Q6H PRN pain 07/20/24 07/20/24 History cyclobenzaprine 10 mg tablet 10 mg PO TID PRN muscle spasm #30 07/27/24 Unknown Rx tabs omeprazole 40 mg capsule,delayed 40 mg PO BID 90 days #180 caps 08/11/24 01/18/25 05:30 Rx release ondansetron 4 mg disintegrating 4 mg PO Q8H PRN nausea and 09/30/24 Unknown Rx tablet vomiting #30 tabs mecobalamin (vitamin B12) 500 mcg 2,500 mcg PO DAILY 10/22/24 01/04/25 History chewable tablet bupropion HCl 150 mg 24 hr tablet, 150 mg PO QAM #90 TABLETS 12/06/24 01/18/25 05:30 Rx extended release escitalopram oxalate 10 mg tablet 15 mg (1.5 x 10 mg) PO QHS 90 days 12/06/24 01/17/25 20:30 Rx #135 tabs lorazepam 0.5 mg tablet 0.5 mg PO DAILY PRN anxiety #30 12/06/24 01/18/25 05:30 Rx tabs naproxen 500 mg tablet 500 mg PO BID PRN PRN Pain #30 tabs 01/21/25 Unknown Rx oxycodone-acetaminophen 5 mg-325 1 tab PO Q4H PRN pain 7 days #20 01/21/25 Unknown Rx mg tablet (Percocet) tabs Allergy/AdvReac Type Severity Reaction Status Date / Time citalopram hydrobromide Allergy Hives Verified 01/25/25 00:06 (From Celexa) Penicillins (PCN) Allergy Hives Verified 01/25/25 00:06 tetanus immune globulin Allergy Hives Verified 01/25/25 00:06 liraglutide (From Victoza) AdvReac Nausea/Vom/ Verified 01/25/25 00:06 Diarrhea morphine AdvReac Itching Verified 01/25/25 00:06 Family History Mother Hypertension High cholesterol Alcoholism Arthritis Depression Sister Thyroid cancer Depression Colon cancer Arthritis Autoimmune disorder Thyroid disorder Father Alcoholism Anxiety Depression Myocardial infarction Psychiatric care Grandfather Lung cancer Aunt Esophageal cancer Surgical History Status post bilateral salpingectomy S/P laparoscopic assisted vaginal hysterectomy (LAVH) H/O esophagogastroduodenoscopy H/O dilation and curettage History of hysteroscopy Previous section H/O repair of right rotator cuff History of appendectomy Hx of cholecystectomy History of tonsillectomy Social History household members: spouse and children housing: house number of children: 2 current occupational status: employed 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[employer] pets and animals: Yes pets and animals: dog(s) Smoking Status: Former smoker alcohol intake: current substance use type: does not use what type of physical activity do you participate in: walking and weight training frequency: 3-4 times per week do you feel safe at home: Yes additional social history: [facility] ED Constitutional Constitutional ED: Reports fever(s) ENT ENT ED: Denies ear pain, rhinorrhea or sore throat Cardiovascular Cardiovascular: Reports racing heartbeat; Denies chest pain Respiratory/Chest Respiratory/Chest: Denies cough or dyspnea Gastrointestinal Gastrointestinal: Reports abdominal pain; Denies diarrhea, melena, nausea or vomiting Genitourinary Genitourinary ED: Denies dysuria or hematuria Musculoskeletal Musculoskeletal: Denies myalgias Integumentary Denies rash Neurologic Neurologic: Denies headache(s) Hematologic/Lymphatic Hematologic/Lymphatic: Denies easy bleeding or easy bruising EXAM Physical Exam Const Vital Signs: 01/25/25 00:00 01/25/25 00:06 01/25/25 00:07 Temperature 99.8 F H 99.8 F H Temperature Source Oral Oral Pulse Rate 100 100 Respiratory Rate 22 H 22 H Respiratory Effort Normal Respiratory Pattern Normal Blood Pressure 146/69 H 146/69 H Blood Pressure Mean 94 94 Pulse Ox 95 95 Oxygen Delivery Method Room Air Room Air 01/25/25 01:06 01/25/25 02:00 01/25/25 02:58 Temperature 99.8 F H 99.8 F H 99.1 F Temperature Source Oral Oral Pulse Rate 95 102 H 97 Respiratory Rate 21 H 20 H 18 Respiratory Effort Respiratory Pattern Blood Pressure 136/74 H 136/69 H 136/96 H Blood Pressure Mean 94 91 109 Pulse Ox 100 98 98 Oxygen Delivery Method Room Air Room Air 01/25/25 03:00 Temperature 99.1 F Temperature Source Oral Pulse Rate 97 Respiratory Rate 16 Respiratory Effort Respiratory Pattern Blood Pressure 144/75 H Blood Pressure Mean 98 Pulse Ox 98 Oxygen Delivery Method Room Air Positive well nourished and well developed General Appearance ED: well developed; Negative for pallor HEENT Reports moist mucous membranes HEENT Narrative: Normocephalic atraumatic No tongue or lip swelling no oral lesions no airway edema or compromise; no secondary findings in the posterior pharynx to suggest infection Eyes PERRL and EOMs intact bilaterally General Eye ED: Negative for scleral icterus Neck supple Neck Narrative: No nuchal rigidity or meningeal findings Chest Wall palpation of chest normal Resp normal respiratory effort and clear to auscultation bilaterally Resp Narrative: No nasal flaring tractions tachypnea or accessory muscle use Cardio regular rhythm Rate: tachycardic and other Other Details: Tachycardic rate with regular rhythm Radial and carotid pulses are equal and symmetric GI non-distended GI Narrative: Abdomen is soft and nondistended with normal active bowel sounds. There is ecchymosis noted in the left mid to lower abdomen and there is pain with palpation at this site. No pulsatile mass. No peritoneal signs. No overlying erythema or warmth Auscultation: normoactive bowel sounds Palpation: soft Back/Spine no CVA tenderness Extremity normal to inspection Extremity Narrative: No asymmetric edema no pitting edema negative Homans' sign bilaterally Neuro oriented x3, CN's II-XII intact bilaterally and no sensory deficits noted Sensorium / Orientation: alert Motor Exam: strength 5/5 throughout Psych mental status grossly normal Skin Skin Narrative: Abdominal wounds are clean dry and intact without secondary findings to suggest infection Ecchymosis along the left lateral aspect of the abdominal wall as documented above General Skin Exam: Negative for jaundice or pallor MDM MDM MDM Narrative Medical decision making narrative: Patient arrived to the ER just slightly tachycardic and technically afebrile at 99.8 however she reported a fever of 101 at home. With her recent surgical procedure there is concern that the fever could be secondary to a pulmonary embolus or a secondary pneumonia or UTI or internal infection from the surgery. Therefore basic labs were obtained with urine sample as well as COVID influenza and RSV swab and CTA of the chest abdomen and pelvis. Labs showed mild leukocytosis at 12 with slight left shift as her neutrophil count is elevated 8.7. Otherwise no signs of acute kidney injury or clinically significant electrolyte abnormality. Lipase was normal going against pancreatitis and liver enzymes are at baseline going against a biliary issue. Urine sample also showed no sign of acute infection/UTI/pyelonephritis. The CT of the chest revealed no PE or pneumonia. CT of the abdomen showed a area of acute hematoma in the surgical bed which is most likely consistent with the patient's pain. Her hemoglobin did decrease from 12.7 on the to 9.5 today most likely from the hematoma noted within the abdomen. However the radiologist feels there is no findings of active bleeding at this time. With the patient dropping her hemoglobin from essentially 13 to 9.5 and her now fever there is also concern this could potentially be related to a developing abscess and not hematoma. Therefore I discussed the case with [employer]AN on-call Dr. Bower. She recommends with the patient's pain and fever and the drop in her hemoglobin that she be admitted to her service for continued monitoring. However at this time as we do not have an obvious source of fever she does not recommend prophylactic antibiotics and will continue to monitor the patient. History & Record Review Discussion w/independent historian: Patient Lab Data Attestation: I reviewed the patient's lab results. Labs: Laboratory Results - last 24 hr 01/25/25 01/25/25 01:09 01:47 WBC 12.0 H RBC 3.10 L Hgb 9.5 L Hct 26.5 L MCV 85.5 MCH 30.6 MCHC 35.8 RDW Std Deviation 37.8 RDW Coeff of Tania 12.6 Plt Count 207 MPV 10.2 Immature Gran % (Auto) 0.800 Neut % (Auto) 72.2 H Lymph % (Auto) 14.8 L Dickinson % (Auto) 5.8 Eos % (Auto) 6.1 H Baso % (Auto) 0.3 Absolute Neuts (auto) 8.7 H Absolute Lymphs (auto) 1.78 Nucleated RBC % 0 PT 14.0 INR 1.1 APTT 32.0 Sodium 135 Potassium 3.8 Chloride 102 Carbon Dioxide 24.6 Anion Gap 9 BUN 12 Creatinine 0.63 L Estim Creat Clear Calc 131.83 Est GFR (MDRD) Non-Af 114 BUN/Creatinine Ratio 19.8 Glucose 112 H Calcium 9.0 Total Bilirubin 1.07 Direct Bilirubin 0.40 H AST 45 H ALT 58 H Alkaline Phosphatase 64 Total Protein 6.7 Albumin 4.0 Globulin 2.7 Lipase 16 Urine Color Yellow Urine Clarity Clear Urine pH 8.0 Ur Specific [place] 1.010 Urine Protein 15 H Urine Glucose (UA) Normal Urine Ketones Negative Urine Occult Blood Negative Urine Nitrite Negative Urine Bilirubin Negative Urine Urobilinogen Normal Ur Leukocyte Esterase Negative Urine RBC 0-5 SEEN Urine WBC 0-5 SEEN Ur Squamous Epith Cells 0-5 SEEN Urine Bacteria RARE Urine Mucus 0 SEEN Radiography Diagnostic Testing: Clinical Impression(s) from Imaging Studies Chest/Abdomen/Pelvis CTA 01/25/25 01:30 IMPRESSION: Recent hysterectomy. Acute hematoma is noted in the surgical bed measuring 7.5 x 4.[address] evidence of active bleeding during the time of the exam. Mild amount of surrounding free acute hemorrhagic products in the pelvis. Prior appendectomy. Prior cholecystectomy. Mild edema of the lower aspect of the anterior abdominal wall, probably benign finding secondary to recent intervention. 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
--- OUTSIDE RECORDS SUMMARY | 2025-01-25 03:12 | XMS RPT_ITS | CCD ---
Author Organization [facility] Care Team Providers Care Resource Development Manager Name Role Phone Dr. Librado Ybarra Primary Care Provider Dr. Librado Ybarra Referring Provider [phone] Faith BANERJEE, LAVONNE Blanc Attending Provider YUMI BROOKS Attending Unavailable BROOKS, YUMI SUMMER [...] Primary Care Unavailable Tate, Librado Referring Unavailable MarcanthonyoMny Attending Unavailable Tate, Librado Referring Unavailable Tate, [...] Primary Care Unavailable MarcjuanonyMony Attending Unavailable Tate, Lbirado Referring Unavailable Tate, Librado Primary Care Unavailable MarcjuanonyMony Attending Unavailable Allergies Allergy Classification Reported Allergen(s) Allergy Type Date of Onset Reaction(s) Facility (10 sources) Citalopram; Translations: [citalopram hydrobromide] Drug Allergy 2 Hives [facility] Repository (9 sources) liraglutide Drug Allergy 2 Nausea/Vom/Diar reyna [facility] Work Phone: (9 sources) Morphine Drug Allergy 2 Itching [facility] Work Phone: (10 sources) Penicillins; Translations: [Penicillins] Allergy to substance 2 [facility] Repository (9 sources) Tetanus immune globulin Drug Allergy 2 [facility] Work Phone: (1 source) liraglutide Drug Allergy 5 [facility] Repository (1 source) Morphine Drug Allergy 5 [facility] Repository (1 source) Tetanus immune globulin Drug Allergy 5 [facility] Repository Medications Current Medications Medication Drug [...] 18, 2018 12:30pm 21 day ethinyl estradiol 0.817037 mg/hr / etonogestrel 0.005 mg/hr vaginal system [...] Test Name Value Interpretation Reference Range Facility Purchasing Internship Office Visit Reporton 01-21-2025 Purchasing Internship Office Visit Report [facility] [address], [address] [place] [address] OFFICE VISIT Date of Service: 01/21/25 MR#: [id number] Acct: [id number] Name: BEATRICE BORREGO Rep #: [id number] : 1985 Provider: Dr. Mony hinojosa MD Age/Sex: 39/F [place] [facility] [place] Status: Signed Intake Vital Signs 01/18/25 07:55 01/21/25 11:55 01/21/25 11:56 Height 5 ft 4 in 5 ft 4 in 5 ft 4 in Weight: 209 lb 1 oz BMI 35.9 BP 125/85 H Pulse 81 Temp 98.4 F Temperature Source Oral Intake Visit Reasons: incision check/possible infection/JV Hearing Officer Required: No Is patient in pain?: Yes [...] mcg (2,000 unit) capsule (Vitamin D3) omega 8-eem-mnq-fish oil 1,200 mg 1 cap PO DAILY [...] 2 current occupational status: employed current occupation: [employer] pets and animals: Yes pets and animals: [...] but overal (more content not included)... Normal [facility] Hepatitis B Core Ab Totalon 01-20-2025 HEP B CORE,TOT Negative Normal Negative [facility] Comment on above: Order Comment: Has p t arrived? Y Result Comment: Perf ormed at: [facility] [address] [id number] Flagger: Dany White PhD, Phone: [phone] Performed By: #### L 3890.6102, L3100.0460, L3890.6006, L3890.6301, L3890.6202 #### [facility] [address] [place], [place], [id number] CBC-Complete Blood Cnt No Di ffon 01-19-2025 HCT Normal 37-47 [facility] Comment on above: Result Comment: Canc elled via OM: Order cancelled - Patient discharged Performed By: #### L 3890.6102, L3100.0460, L3890.6006, L3890.6301, L3890.6202 #### [facility] [address] [place], [place], [id number] HGB Normal 12.0-15.0 [facility] Comment on above: Result Comment: Canc elled via OM: Order cancelled - Patient discharged Performed By: #### L 3890.6102, L3100.0460, L3890.6006, L3890.6301, L3890.6202 #### [facility] [address] [place], [address] MCH Normal 27.0-32.0 [facility] Comment on above: Result Comment: Canc elled via OM: Order cancelled - Patient discharged Performed By: #### L 3890.6102, L3100.0460, L3890.6006, L3890.6301, L3890.6202 #### [facility] [address] [place], [address] MCHC Normal 32-36 [facility] Comment on above: Result Comment: Canc elled via OM: Order cancelled - Patient discharged Performed By: #### L 3890.6102, L3100.0460, L3890.6006, L3890.6301, L3890.6202 #### [facility] [address] [place], [address] MCV Normal 81-99 [facility] Comment on above: Result Comment: Canc elled via OM: Order cancelled - Patient discharged Performed By: #### L 3890.6102, L3100.0460, L3890.6006, L3890.6301, L3890.6202 #### [facility] [address] [place], [address] PLT Normal 150-450 [facility] Comment on above: Result Comment: Canc elled via OM: Order cancelled - Patient discharged Performed By: #### L 3890.6102, L3100.0460, L3890.6006, L3890.6301, L3890.6202 #### [facility] [address] [place], [address] RBC Normal 4.2-5.4 [facility] Comment on above: Result Comment: Canc elled via OM: Order cancelled - Patient discharged Performed By: #### L 3890.6102, L3100.0460, L3890.6006, L3890.6301, L3890.6202 #### [facility] [address] [place], [address] RDW CV Normal 11.6-14.6 [facility] Comment on above: Result Comment: Canc elled via OM: Order cancelled - Patient discharged Performed By: #### L 3890.6102, L3100.0460, L3890.6006, L3890.6301, L3890.6202 #### [facility] [address] [place], [address] RDW SD Normal 35.1-43.9 [facility] Comment on above: Result Comment: Canc elled via OM: Order cancelled - Patient discharged Performed By: #### L 3890.6102, L3100.0460, L3890.6006, L3890.6301, L3890.6202 #### [facility] [address] [place], [address] WBC Normal 4.4-11.0 [facility] Comment on above: Result Comment: Canc elled via OM: Order cancelled - Patient discharged Performed By: #### L 3890.6102, L3100.0460, L3890.6006, L3890.6301, L3890.6202 #### [facility] [address] [place], [address] 12 Lead EKGon 01-18-[address] [facility] [address] [place] [address] 12 Lead EKG 01/18/25 0739 MR#: [id number] Acct: [id number] Name: BEATRICE BORREGO Rep #: [id number] : 1985 39 From: Lambert Rojo MD Attending Dr: Dr. Mony Cisneros MD Status: [place] [facility] [place] Ordering Dr: Herbert Hair MD Date: 01/18/25 [...] change was found Confirmed by Lambert Rojo ([id number]), state editor TRUE STACK ([id number]) on 01/18/2025 12:49:18 PM Referred By: Mony Cisneros Confirmed By: Lambert Rojo 01/18/25 1249 Date Lambert Rojo MD CC: Dr. Herbert Hair MD; Dr. Librado Ybarra DO; Dr. Mony Cisneros MD Signed Normal [facility] Bedside Glucoseon 01-18-2025 FINGERSTICK GLU 85 mg/dL Normal 74-106 [facility] Comment on above: Result Comment: KAERL PILLOENT OF PATIENT CARE PER NURSING PROTOCOL Performed By: #### L 501.080 #### [facility] [address] [place], [address] CBC W/Diff, Automatedon 12-30 Absolute Lymph 1.17 X10 3/uL Normal 0.83-4.51 [facility] Comment on above: Performed By: #### L 3890.6102, L3100.0460, L3890.6006, L3890.6301, L3890.6202 #### [facility] [address] [place], [address] Absolute Neut 11.6 X10 3/uL High 2.0-7.7 [facility] Comment on above: Performed By: #### L 3890.6102, L3100.0460, L3890.6006, L3890.6301, L3890.6202 #### [facility] [address] [place], [address] Basophils/100 WBC (Bld) 0.3 % Normal 0-1 [facility] Comment on above: Performed By: #### L 3890.6102, L3100.0460, L3890.6006, L3890.6301, L3890.6202 #### [facility] [address] [place], [address] Eosinophils/100 WBC (Bld) 0.2 % Normal 0-5 [facility] Comment on above: Performed By: #### L 3890.6102, L3100.0460, L3890.6006, L3890.6301, L3890.6202 #### [facility] [address] [place], [address] Erythrocyte distribution width (RBC) [Ratio] 11.9 % Normal 11.6-14.6 [facility] Comment on above: Performed By: #### L 3890.6102, L3100.0460, L3890.6006, L3890.6301, L3890.6202 #### [facility] [address] [place], [address] Hematocrit (Bld) [Volume fraction] 35.8 % Low 37-47 [facility] Comment on above: Performed By: #### L 3890.6102, L3100.0460, L3890.6006, L3890.6301, L3890.6202 #### [facility] [address] [place], [address] Hemoglobin (Bld) [Mass/Vol] 12.7 g/dL Normal 12.0-15.0 [facility] Comment on above: Performed By: #### L 3890.6102, L3100.0460, L3890.6006, L3890.6301, L3890.6202 #### [facility] [address] [place], [address] IG% 0.300 Normal 0.0-0.9 [facility] Comment on above: Result Comment: IG% - Immature Granulocytes (promyelocytes, myelocytes and metamyelocytes) > 1% indicates that a LEFT SHIFT is Present. Performed By: #### L 3890.6102, L3100.0460, L3890.6006, L3890.6301, L3890.6202 #### [facility] [address] [place], [address] Lymphocytes/100 WBC (Bld) 9.0 % Low 19-41 [facility] Comment on above: Performed By: #### L 3890.6102, L3100.0460, L3890.6006, L3890.6301, L3890.6202 #### [facility] [address] [place], [address] MCH (RBC) [Entitic mass] 29.8 pg Normal 27.0-32.0 [facility] Comment on above: Performed By: #### L 3890.6102, L3100.0460, L3890.6006, L3890.6301, L3890.6202 #### [facility] [address] [place], [address] MCHC (RBC) [Mass/Vol] 35.5 g/dL Normal 32-36 [facility] Comment on above: Performed By: #### L 3890.6102, L3100.0460, L3890.6006, L3890.6301, L3890.6202 #### [facility] [address] [place], [address] MCV (RBC) [Entitic vol] 84.0 fL Normal 81-99 [facility] Comment on above: Performed By: #### L 3890.6102, L3100.0460, L3890.6006, L3890.6301, L3890.6202 #### [facility] [address] [place], [address] Monocytes/100 WBC (Bld) 0.8 % Normal 0-10 [facility] Comment on above: Performed By: #### L 3890.6102, L3100.0460, L3890.6006, L3890.6301, L3890.6202 #### [facility] [address] [place], [address] Neutrophils/100 WBC (Bld) 89.4 % High 47-70 [facility] Comment on above: Performed By: #### L 3890.6102, L3100.0460, L3890.6006, L3890.6301, L3890.6202 #### [facility] [address] [place], [address] Nucleated RBC (Bld) [#/Vol] 0 10*3/uL Normal 0-5 [facility] Comment on above: Performed By: #### L 3890.6102, L3100.0460, L3890.6006, L3890.6301, L3890.6202 #### [facility] [address] [place], [address] Platelet mean volume (Bld) [Entitic vol] 10.4 fL Normal 6.2-12.0 [facility] Comment on above: Performed By: #### L 3890.6102, L3100.0460, L3890.6006, L3890.6301, L3890.6202 #### [facility] [address] [place], [address] Platelets (Bld) [#/Vol] 238 10*3/uL Normal 150-450 [facility] Comment on above: Performed By: #### L 3890.6102, L3100.0460, L3890.6006, L3890.6301, L3890.6202 #### [facility] [address] [place], [address] RBC (Bld) [#/Vol] 4.26 10*6/uL Normal 4.2-5.[address] [facility] Comment on above: Performed By: #### L 3890.6102, L3100.0460, L3890.6006, L3890.6301, L3890.6202 #### [facility] [address] [place], [address] RDW SD 35.8 fl Normal 35.1-43.9 [facility] Comment on above: Performed By: #### L 3890.6102, L3100.0460, L3890.6006, L3890.6301, L3890.6202 #### [facility] [address] [place], [address] WBC (Bld) [#/Vol] 13.0 10*3/uL High 4.4-11.[address] [facility] Comment on above: Performed By: #### L 3890.6102, L3100.0460, L3890.6006, L3890.6301, L3890.6202 #### [facility] [address] [place], [address] CBC-Complete Blood Cnt No Di ffon 01-18-2025 Erythrocyte distribution width (RBC) [Ratio] 11.8 % Normal 11.6-14.6 [facility] Comment on above: Performed By: #### L 3890.6102, L3100.0460, L3890.6006, L3890.6301, L3890.6202 #### [facility] [address] [place], [address] Hematocrit (Bld) [Volume fraction] 37.1 % Normal 37-47 [facility] Comment on above: Performed By: #### L 3890.6102, L3100.0460, L3890.6006, L3890.6301, L3890.6202 #### [facility] [address] [place], [address] Hemoglobin (Bld) [Mass/Vol] 13.2 g/dL Normal 12.0-15.0 [facility] Comment on above: Performed By: #### L 3890.6102, L3100.0460, L3890.6006, L3890.6301, L3890.6202 #### [facility] [address] [place], [address] MCH (RBC) [Entitic mass] 30.0 pg Normal 27.0-32.0 [facility] Comment on above: Performed By: #### L 3890.6102, L3100.0460, L3890.6006, L3890.6301, L3890.6202 #### [facility] [address] [place], [address] MCHC (RBC) [Mass/Vol] 35.6 g/dL Normal 32-36 [facility] Comment on above: Performed By: #### L 3890.6102, L3100.0460, L3890.6006, L3890.6301, L3890.6202 #### [facility] [address] [place], [address] MCV (RBC) [Entitic vol] 84.3 fL Normal 81-99 [facility] Comment on above: Performed By: #### L 3890.6102, L3100.0460, L3890.6006, L3890.6301, L3890.6202 #### [facility] [address] [place], [address] Platelet mean volume (Bld) [Entitic vol] 10.2 fL Normal 6.2-12.0 [facility] Comment on above: Performed By: #### L 3890.6102, L3100.0460, L3890.6006, L3890.6301, L3890.6202 #### [facility] [address] [place], [address] Platelets (Bld) [#/Vol] 230 10*3/uL Normal 150-450 [facility] Comment on above: Performed By: #### L 3890.6102, L3100.0460, L3890.6006, L3890.6301, L3890.6202 #### [facility] [address] [place], [address] RBC (Bld) [#/Vol] 4.40 10*6/uL Normal 4.2-5.[address] [facility] Comment on above: Performed By: #### L 3890.6102, L3100.0460, L3890.6006, L3890.6301, L3890.6202 #### [facility] [address] [place], [address] RDW SD 36.0 fl Normal 35.1-43.9 [facility] Comment on above: Performed By: #### L 3890.6102, L3100.0460, L3890.6006, L3890.6301, L3890.6202 #### [facility] [address] [place], [address] WBC (Bld) [#/Vol] 7.6 10*3/uL Normal 4.4-11.0 [facility] Comment on above: Performed By: #### L 3890.6102, L3100.0460, L3890.6006, L3890.6301, L3890.6202 #### [facility] [address] [place], [address] Discharge Instructionon 12-30 Discharge Instruction [facility] Medical Records Department [address] [place] [address] Instructions for Home/Discharge Instructions 01/18/25 1229 MR#: [id number] Acct: [id number] Name: BEATRICE BORREGO Rep #: [id number] : 1985 39 From: Mony Cisneros MD [...] Care Provider: Librado Ybarra Instructions Print Language: Hungarian Discharge Orders/Prescriptions Prescriptions: No Action mecobalamin (vitamin [...] PRN (Reason: anxiety) Qty: 30 1RF omega 5-uyc-tys-fish oil [Fish Oil] 1,200 (144-216) mg capsule [...] can be placed): Home, Self Care 01/18/25 1227 Mony Cisneros MD CC: Dr. Librado Ybarra DO Signed Normal [facility] HIVon 01-18-2025 HIV Non-Reactive Normal Nonreactive [facility] Comment on above: Order Comment: Reaso [...] Order the HIV antibody detection and differentiation: [id number] Performed By: #### L 3890.6102, L3100.0460, L3890.6006, L3890.6301, L3890.6202 #### [facility] [address] [facility] [place], [place], [address] Hepatitis B Surface Antibody on 01-18-2025 HEP B Surf Ab REAC Normal [facility] Comment on above: Result Comment: <8.5 mIU/mL: Non-Reactive 8.5<= x <11.5 mIU/mL: Indeterminate >=11.5 mIU/mL: Reactive Non Reactive: Inconsistent with immunity less than <10 mIU/mL Reactive: Consistent with immunity greater than or equal to 10 mIU/mL Performed By: #### L 3890.6102, L3100.0460, L3890.6006, L3890.6301, L3890.6202 #### [facility] [address] [facility] [place], [address] Hepatitis C Antibodyon 01-18 Hepatitis C Ab Non-Reactive Normal Nonreactive [facility] Comment on above: Order Comment: Reaso [...] HCV Quant by PCR testing - HCVPCR #[id number] Non Reactive: < 0.8 Equivocal: >/= 0.8 to < 1.0 Reactive: >/= 1.0 The [facility] requires that a reactive/equivocal HCV antibody result be sent out for confirmation. HCV Quant by PCR testing. Performed By: #### L 3890.6102, L3100.0460, L3890.6006, L3890.6301, L3890.6202 #### [facility] [address] [place], [address] L3890.6102on 01-18-2025 HEP B Surf Ag Non-Reactive Normal Nonreactive [facility] Comment on above: Order Comment: Reaso n for Exam: exposure Result Comment: Reac tive: Presumptive evidence of HBV. Repeatedly reactive samples must be confirmed using a neutralization test ([employer] HBsAg Confirmatory Test) Non-Reactive: HBsAg not detected; does not exclude the possibility of exposure to HBV Performed By: #### L 3890.6102, L3100.0460, L3890.6006, L3890.6301, L3890.6202 #### [facility] [address] [place], [place], [address] MR/POSTOP.ANEon 01-18-2025 MR/POSTOP.ANE [facility] Medical Records Department [address] [place] [address] Anesthesia Postop Eval I 01/18/25 1240 MR#: [id number] Acct: [id number] Name: BEATRICE BORREGO Rep #: [id number] : 1985 39 From: Michael Dc CRNA PCP: Dr. Librado Ybarra, DO Status:REG SDC Y Race: C Location: [place] [address] Anesthesia: Postop Eval I Current Vital Signs [...] completed: Yes 01/18/25 1241 Date Michael Dc SUB PLANT MANAGER Cosigner Signature: Date CC: Signed Normal [facility] MR/EGACDRPC2eo 01-18-2025 [facility] Medical Records Department [address] [place] [address] Anesthesia Postop Eval II 01/18/25 1737 MR#: [id number] Acct: [id number] Name: BEATRICE BORREGO Rep #: [id number] : 1985 39 From: Michael Dc CRNA PCP: Dr. Librado Ybarra, DO Status:[facility] Y Race: C [place] [facility] [place]esthesia Postop Eval I Sum Postop Eval Completion status Anesthesia document: Postop Eval 1 completed: Yes Anesthesia Postop Eval I Summary Anesthesia Postop Eval I Summary: Anesthesia Postop Eval I: Assessment Summary Airway patent Yes 01/18/25 12:41 SUB PLANT MANAGER.PKEL Spontaneous unlabored Yes 01/18/25 12:41 [employer] PLANT MANAGER.PKEL respirations Mental status Awake,Calm 01/18/25 12:41 SUB PLANT MANAGER.PKEL nausea No 01/18/25 12:41 [employer] PLANT MANAGER.PKEL Vomiting No 01/18/25 12:41 [employer] PLANT MANAGER.PKEL Anesthesia Postop Eval I: Fluid Summary Crystalloid volume administer 1,800 01/18/25 12:41 SUB PLANT MANAGER.PKEL (ml) Colloids volume administered ( ml) Blood Product volume administered (ml) Total IV fluid infused 1,800 01/18/25 12:41 SUB PLANT MANAGER.OPAL Anesthesia Postop Eval I: Summary Notes Anesthesia Complication No 01/18/25 12:41 SUB PLANT MANAGER.PKEL Anesthesia Complication Comment: Post-operative progress note Anesthesia: Postop Eval II Evaluation Mental status: Awake and Calm Pain Level: 0 nausea: No Vomiting: No Complications Anesthesia Complication: No 01/18/25 1738 Date Michael Dc SUB PLANT MANAGER Cosigner Signature: Date CC: Signed Normal [facility] Operative Reporton Operative Report [facility] Medical Records Department [address] [place] [address] Operative Report 01/18/25 1223 MR#: [id number] Acct: [id number] Name: BEATRICE BORREGO Rep #: [id number] : 1985 39 From: Mony Cisneros MD PCP: Dr. Librado Ybarra, DO Status:[facility] Location: [place] [address] Procedures Urinary/Genital 52xxx-59xxx: 71591 LAVH+BS/O <250gr Uterus Operative Report (Standard) Operative Information Date of Procedure: 01/18/25 Pre-Operative Diagnosis: fibroid aub chronic pelvic pain Post-Operative Diagnosis: same Surgery/Procedure Performed: laparoscopic assisted vaginal hysterectomy bilateral salpingectomy rehabilitation case coordinator: Yes Marketing Services Rep: Dionisio Gresham Tasks completed by sampler first: Opening closing, Trocar and Retracting Additional educational assistant teacher?: No Type of Anesthesia: General RN Documented [...] peritoneum. This was reapproximated using 0 Vicryl gpjhnz-bz-sfgkl sutures. Excellent hemostasis was noted. Attention paid [...] evacuated with (more content not included)... Normal [facility] ,Urineon 01-18-2025 Beta HCG ( test) Ql (U) Negative Normal [facility] Comment on above: Result Comment: Very dilute urine specimens, as indicated by a low specific gravity, may not contain scheduling representative levels of hCG. If is still suspected, a first morning urine specimen should be collected 48 hours later and tested. Performed By: #### L 3890.6102, L3100.0460, L3890.6006, L3890.6301, L3890.6202 #### [facility] [place], [address] Surgery Specimen Level Von 1 Surgery Specimen Level V Patient Age/Sex Location Account Attending Physician ANHBEATRICE LARKIN 39/F [facility] [place] [id number] Dr. Mony Cisneros MD Specimen: [id number] Received: 01/18/25 Status: IFRAH Nunezmagdiel Num: [id number] Spec Type: UTERUS Subm Dr: Dr. Mony [...] material. The specimen is inked as follows: Feupmkuf-ngbieHluqhubvi-w lackParametrium-orangeRig ht lateral cystic area-blue Opening reveals [...] are few paratubal cyst, <0.1 cm each. Brick Mason sections are submitted as follows: A1: Anterior cervixA2: Posterior cervixA3: Anterior endomyometrium and possible serosal adhesionsA4: Posterior endomyometriumA5: Left fallopian tube, including paratubal cystA6: Right fallopian tube, including paratubal cystA7: Leiomyoma and right lateral cystic area MN 01/18/2025 [facility]:[address] Patient Age/Sex Location Account Attending Physician BEATRICE BORREGO 39/F [facility] [place] [id number] Dr. Mony Cisneros MD Signed (signature on file) Dr. Rosie Motley DO 01/19/25 1316 Normal [facility] Comment on above: Performed By: #### L 3890.6102, L3100.0460, L3890.6006, L3890.6301, L3890.6202 #### [facility] [address] [place], [address] CBC-Complete Blood Cnt No Di ffon 01-04-2025 Erythrocyte distribution width (RBC) [Ratio] 11.5 % Low 11.6-14.6 [facility] Comment on above: Performed By: #### L 100.0500, BTSPAT ####[facility] [address] [place], [place], [address] Hematocrit (Bld) [Volume fraction] 37.7 % Normal 37-47 [facility] Comment on above: Performed By: #### L 100.0500, BTSPAT ####[facility] [address] [place], [address] Hemoglobin (Bld) [Mass/Vol] 13.2 g/dL Normal 12.0-15.0 [facility] Comment on above: Performed By: #### L 100.0500, BTSPAT ####[facility] [address] [place], [address] MCH (RBC) [Entitic mass] 29.4 pg Normal 27.0-32.0 [facility] Comment on above: Performed By: #### L 100.0500, BTSPAT ####[facility] [address] [place], [address] MCHC (RBC) [Mass/Vol] 35.0 g/dL Normal 32-36 [facility] Comment on above: Performed By: #### L 100.0500, BTSPAT ####[facility] [address] [place], [address] MCV (RBC) [Entitic vol] 84.0 fL Normal 81-99 [facility] Comment on above: Performed By: #### L 100.0500, BTSPAT ####[facility] [address] [place], [address] Platelet mean volume (Bld) [Entitic vol] 10.3 fL Normal 6.2-12.0 [facility] Comment on above: Performed By: #### L 100.0500, BTSPAT ####[facility] [address] [place], [address] Platelets (Bld) [#/Vol] 268 10*3/uL Normal 150-450 [facility] Comment on above: Performed By: #### L 100.0500, BTSPAT ####[facility] [address] [place], [address] RBC (Bld) [#/Vol] 4.49 10*6/uL Normal 4.2-5.[address] [facility] [facility] Comment on above: Performed By: #### L 100.0500, BTSPAT ####[facility] [address] [place], [address] RDW SD 35.1 fl Normal 35.1-43.9 [facility] Comment on above: Performed By: #### L 100.0500, BTSPAT ####[facility] [address] [place], [address] WBC (Bld) [#/Vol] 9.2 10*3/uL Normal 4.4-11.0 [facility] Comment on above: Performed By: #### L 100.0500, BTSPAT ####[facility] [address] [facility] [place], [address] MR/Mattie 01-04-2025 MR/[facility] Medical Records Department [address] [place] [address] PAT - Anesthesia 01/04/25 1204 MR#: [id number] Acct: [id number] Name: BEATRICE BORREGO Rep #: [id number] : 1985 39 From: Bhavesh Leung MD PCP: Dr. Librado Ybarra, DO Status:PRE [facility] [place] Race: C [place] [facility] Pre-Assessment Diagnosis/Proposed Procedure Planned Operative Procedure(s): LAPAROSCOPIC ASSITED VAGINAL HYSTERECTOMY, BILATERAL SALPINGECTOMY Anesthesia History Anesthesia History - hand button splitter: Anesthesia History - hand button splitter Hx Hospitalization No 01/04/25 10:18 Any Problems [...] take am of surgery PONV PONV - hand button splitter: PONV - hand button splitter Female Yes 01/04/25 10:18 HX of Motion [...] 12/21/24 10:37 Respiratory Assessment Respiratory Assessment - hand button splitter: Respiratory Tract Infection Hx - hand button splitter Hx Respiratory Tract Infection No 01/04/25 10:18 STOP Sleep Apnea STOP Sleep Apnea - hand button splitter: STOP Sleep Apnea - hand button splitter Hx Hypertension No 01/04/25 10:18 Hx Sleep [...] Tobacco Use History Tobacco Use History - hand button splitter: Tobacco Use History - hand button splitter Tobacco Use Smoking Status Former smoker 01/04/25 10:18 Hx Tobacco Use Yes 01/04/25 10:18 Years Smoking Packs Smoked per Day Smoking Cessation Date was Yes - quit smoking within 15 01/04/25 10:18 within the last 15 years years Hx Smoking Cessation Date 01/02/25 01/04/25 10:18 Hx Smoking Cessation Yes 01/04/25 10:18 Counseling Hematologic Medial History Hematologic Hx - hand button splitter: 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 Normal [facility] Magnesiumon 01-04-2025 Magnesium [Mass/Vol] 1.9 mg/dL Normal 1.5-2.2 [facility] Comment on above: Performed By: #### L 501.5200 ####[facility] [address] [place], [address] Type AND Screen - PAT ONLYon 01-04-2025 Ab SCREEN GEL Negative Normal [facility] Comment on above: Order Comment: Surge ry Date: 01/18/25Reason for Laboratory Test [id number] Performed By: #### L 100.0500, BTSPAT ####[facility] [address] [place], [place], [address] PAP IG HPV APTIMA 16/18,45on 12-24-2024 ADEQ Comment Normal . [facility] Comment on above: Order Comment: Reaso n for Exam: exposure Result Comment: Sati sfactory for evaluation. No endocervical component is identified. Performed By: #### L 3890.6102, L3100.0460, L3890.6006, L3890.6301, L3890.6202 #### [facility] [address] [place], [address] COMM . Normal . [facility] Comment on above: Order Comment: Reaso n for Exam: exposure Performed By: #### L 3890.6102, L3100.0460, L3890.6006, L3890.6301, L3890.6202 #### [facility] [address] [place], [place], [address] COMMENT Comment Normal . [facility] Comment on above: Order Comment: Reaso n for Exam: exposure Result Comment: This liquid based ThinPrep(R) pap test was screened with the use of an image guided system. Performed By: #### L 3890.6102, L3100.0460, L3890.6006, L3890.6301, L3890.6202 #### [facility] [address] [place], [place], [id number] DIAG Comment Normal . [facility] Comment on above: Order Comment: Reaso n for Exam: exposure Result Comment: NEGA TIVE FOR INTRAEPITHELIAL LESION OR MALIGNANCY. Performed By: #### L 3890.6102, L3100.0460, L3890.6006, L3890.6301, L3890.6202 #### [facility] [address] [place], [address] HPV APTIMA, HR Negative Normal Negative [facility] Comment on above: Order Comment: Reaso n for Exam: exposure Result Comment: This nucleic acid amplification test detects fourteen high- risk HPV types (16,18,31,33,35,39,45,51,52,56,58,59,66,68) without differentiation. Performed By: #### L 3890.6102, L3100.0460, L3890.6006, L3890.6301, L3890.6202 #### [facility] [address] [place], [place], [address] HPV Ina Rfx Comment Normal . [facility] Comment on above: Order Comment: Reaso n for Exam: exposure Result Comment: Crit erstella not met, HPV Genotype not performed. Performed at: - [facility] [id number] Flagger: Litzy Delong MD, Phone: [phone] Performed at: = - [facility] [id number] Flagger: Litzy Delong MD, Phone: [phone] Performed By: #### L 3890.6102, L3100.0460, L3890.6006, L3890.6301, L3890.6202 #### [facility] [address] [place], [address] PAPSMR Comment Normal . [facility] Comment on above: Order Comment: Reaso [...] L 3890.6102, L3100.0460, L3890.6006, L3890.6301, L3890.6202 #### [facility] [address] [place], [place], [address] PERFORM Comment Normal . [facility] Comment on above: Order Comment: Reaso n for Exam: exposure Result Comment: Malgorzata Shafer, Pediatric Audiologist (ASCP) Performed By: #### L 3890.6102, L3100.0460, L3890.6006, L3890.6301, L3890.6202 #### [facility] [place], [address] Purchasing Internship Office Visit Reporton 12-21-2024 Purchasing Internship Office Visit Report [facility] [address], [address] [place] [address] OFFICE VISIT Date of Service: 12/21/24 MR#: [id number] Acct: [id number] Name: BEATRICE BORREGO Rep #: [id number] : 1985 Provider: Dr. Mony hinojosa MD Age/Sex: 38/F [place] [facility] [place]: Signed Intake Vital Signs 10/22/24 16:02 11/15/24 09:00 12/06/24 07:08 12/21/24 10:37 Height 5 ft 4 in 5 ft 4 in 5 ft 4 in 5 ft 4 in Weight: 209 lb 6 oz BMI 35.9 BP 127/86 H Intake Visit Reasons: hysterectomy pre-op Hearing Officer Required: No Is patient in pain?: No [...] mcg (2,000 unit) capsule (Vitamin D3) omega 9-bpt-vag-fish oil 1,200 mg 1 cap PO DAILY [...] 2 current occupational status: employed current occupation: [employer] pets and animals: Yes pets and animals: [...] history of (more content not included)... Normal [facility] Surgery Specimen Level Gabriella 12-21-2024 Surgery Specimen Level IV Patient Age/Sex Location Account Attending Physician BEATRICE BORREGO 38/F [facility] [id number] Dr. Mony Cisneros MD Specimen: [id number] Received: 12/21/24 Status: IFRAH Peng Num: [id number] Spec Type: ENDOM BX/C Paresh Dr: Dr. [...] of the specimen may not survive processing. [place] 12/21/2024 CPT:57979 Patient Age/Sex Location Account Attending Physician BEATRICE BORREGO 38/F [facility] [id number] Dr. Mony Cisneros MD Signed (signature on file) Dr. Marcelina Camarillo MD 12/24/24 1735 Normal [facility] Comment on above: Performed By: #### L 3890.6102, L3100.0460, L3890.6006, L3890.6301, L3890.6202 #### [facility] [address] [place], [place], [address] MR/BMS.Holly 12-06-2024 MR/BMS.[address] [address] OFFICE VISIT Date of Service: 12/06/24 MR#: [id number] Acct: [id number] Name: BEATRICE BORREGO Rep #: [id number] : 1985 Provider: Dr. Raphael Akers se, Age/Sex: 38/F [place] [facility] [place] Status: Signed Intake Vital Signs 11/15/24 09:00 [...] 2 current occupational status: employed current occupation: [employer] pets and animals: Yes pets and [...] somewhat near future. 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 Continues to feel fairly fatigued, but maybe somewhat improved. Continues to have some consistent depression and anxiety which she feels is largely situational. Follows with Rhianna Hagan at [facility]. Has been taking medications regularly. Had wellbutrin increased to 300 mg by CONSTRUCTION SITE MANAGER but has returned to 150 mg after [...] Thought Con (more content not included)... Normal [facility] Purchasing Internship Office Visit Reporton 10-22-2024 Purchasing Internship Office Visit Report [facility] [address], [address] [place] [address] OFFICE VISIT Date of Service: 10/22/24 MR#: [id number] Acct: [id number] Name: BEATRICE BORREGO Rep #: [id number] : 1985 Provider: Dr. Mony hinojosa MD Age/Sex: 38/F Location: [facility] [place] Status: Signed Intake Vital Signs 07/13/24 10:56 07/20/24 10:56 10/22/24 15:56 10/22/24 16:02 Height 5 ft 4 in 5 ft 4 in 5 ft 4 in 5 ft 4 in Weight: 208 lb 6 oz BMI 35.7 BP 129/84 H Intake Visit Reasons: 3 M FU Hearing Officer Required: No Is patient in pain?: No [...] mcg (2,000 unit) capsule (Vitamin D3) omega 2-zxt-yxd-fish oil 1,200 mg 1 cap PO DAILY [...] 2 current occupational status: employed current occupation: [employer] pets and animals: Yes pets and [...] pregnancies H (more content not included)... Normal [facility] L5500.0550on 10-12-2024 BEEF <0.10 Normal Class 0 [facility] Comment on above: Performed By: #### L 5500.0550, L3410.2400 ####[facility] [address] [facility] [place], [place], [id number] CHOCOLATE <0.10 Normal Class 0 [facility] Comment on above: Performed By: #### L 5500.0550, L3410.2400 ####[facility] [address] [place], [address] CODFISH <0.10 Normal Class 0 [facility] Comment on above: Performed By: #### L 5500.0550, L3410.2400 ####[facility] [address] [place], [place], [address] COMMENT Comment Normal . [facility] Comment on above: Result Comment: Laurita arnold of Specific IgE Class Description of Class ----- < 0.10 0 Negative 0.10 - 0.31 0/I Equivocal/Low 0.32 - 0.55 I Low 0.56 - 1.40 II Moderate 1.41 - 3.90 III High 3.91 - 19.00 IV Very High 19.01 - 100.00 V Very High >100.00 Very High Performed By: #### L 5500.0550, L3410.2400 ####[facility] [address] [place], [address] CORN <0.10 Normal Class 0 [facility] Comment on above: Performed By: #### L 5500.0550, L3410.2400 ####[facility] [address] [place], [address] EGG, WHOLE <0.10 Normal Class 0 [facility] Comment on above: Result Comment: Perf ormed at: - [facility] [id number] Flagger: Jacinto Shea MD, Phone: [phone] Performed By: #### L 5500.0550, L3410.2400 ####[facility] [address] [place], [address] MILK (COW) <0.10 Normal Class 0 [facility] Comment on above: Performed By: #### L 5500.0550, L3410.2400 ####[facility] [address] [place], [address] MUSSELS <0.10 Normal Class 0 [facility] Comment on above: Performed By: #### L 5500.0550, L3410.2400 ####[facility] [address] [place], [address] PEANUT <0.10 Normal Class 0 [facility] Comment on above: Performed By: #### L 5500.0550, L3410.2400 ####[facility] [address] [place], [address] PORK <0.10 Normal Class 0 [facility] Comment on above: Performed By: #### L 5500.0550, L3410.2400 ####[facility] [address] [place], [address] SALMON <0.10 Normal Class 0 [facility] Comment on above: Performed By: #### L 5500.0550, L3410.2400 ####[facility] [address] [place], [address] SHRIMP <0.10 Normal Class 0 [facility] Comment on above: Performed By: #### L 5500.0550, L3410.2400 ####[facility] [address] [place], [address] SOYBEAN <0.10 Normal Class 0 [facility] Comment on above: Performed By: #### L 5500.0550, L3410.2400 ####[facility] [address] [place], [address] TUNA <0.10 Normal Class 0 [facility] Comment on above: Performed By: #### L 5500.0550, L3410.2400 ####[facility] [address] [place], [address] WHEAT <0.10 Normal Class 0 [facility] Comment on above: Performed By: #### L 5500.0550, L3410.2400 ####[facility] [address] [place], [address] M7400.3302on 10-08-2024 M7400.3302 TESTING PERFORMED AT [facility]. ORIGINAL REPORT ON FILE IN LAB CONTAINS ADDITIONAL TEST SITE INFORMATION. Giardia Lamblia EIA NEGATIVE [facility] Comment on above: Performed By: #### L 7000.0700, M600.5000, L7000.0750, M100.637, M100.7900, M100.6796, M7400.3302 ####[facility] [address] [facility] [place], [place], [id number] Ova and Parasites 8623on OP OVA AND PARASITES EX AM, ROUTINE These results were obtained using wet preparation(s) and trichrome stained smear. This test does not include testing for Crytosporidium parvum, Cyclospora, or Microsporidia. One negative specimen does not rule out the possibility of a parasitic infection. TESTING PERFORMED AT [facility]. ORIGINAL REPORT ON FILE IN LAB CONTAINS ADDITIONAL TEST SITE INFORMATION. Ova/Parasite Exam NO OVA, CYSTS, OR PARASITES FOUND. [facility] Comment on above: Performed By: #### L 7000.0700, M600.5000, L7000.0750, M100.637, M100.7900, M100.6796, M7400.3302 ####[facility] [address] [facility] [place], [place], [address] Celiac Disease Profileon ENDOMYSIAL IGA Negative Normal Negative [facility] Comment on above: Performed By: #### L 5500.0550, L3410.2400 #### [facility] [address] [place], [place], [address] IMMUNOGLOB A QN 60 mg/dL Low 87-352 [facility] Comment on above: Performed By: #### L 5500.0550, L3410.2400 #### [facility] [address] [place], [place], [address] tTG IGA <2 Normal 0-3 [facility] Comment on above: Result Comment: Nega tive 0 - 3 Weak Positive 4 - 10 Positive >10 Tissue Transglutaminase (tTG) has been identified as the endomysial antigen. Studies have demonstr- ated that endomysial IgA antibodies have over 99% specificity for gluten sensitive enteropathy. Performed By: #### L 5500.0550, L3410.2400 #### [facility] [address] [place], [place], [address] tTG IGG 2 U/mL Normal 0-5 [facility] Comment on above: Result Comment: Nega tive 0 - 5 Weak Positive 6 - 9 Positive >9 Performed at: [address] [id number] Flagger: Dany White PhD, Phone: [phone] Performed By: #### L 5500.0550, L3410.2400 #### [facility] [address] [place], [address] Calprotectin, Stoolon [address] 67 ug/g Normal 0-120 [facility] Comment on above: Result Comment: Conc entration Interpretation Follow-Up < 5 - 50 ug/g Normal None >50 -120 ug/g Borderline Re-evaluate in 4-6 weeks >120 ug/g Abnormal Repeat as clinically indicated Performed at: [facility] [address] [id number] Flagger: Jacinto Shea MD, Phone: [phone] Performed By: #### L 7000.0700, M600.5000, L7000.0750, M100.637, M100.7900, M100.1696, M7400.1441 ####[facility] [address] [place], [place], [address] Gastroenterology Visit Repor kristal 10-05-2024 Gastroenterology Visit Report [facility] [address] [place] [address] OFFICE VISIT Date of Service: 10/05/24 MR#: [id number] Acct: [id number] Name: BEATRICE BORREGO Rep #: [id number] : 1985 Provider: LAVONNE Loja Age/Sex: 38/F [place] [facility] [place] Status: Signed Intake Vital Signs 07/20/24 10:56 [...] and sees an improvement with her symptoms. [facility] Medical History Carpal tunnel syndrome Flu-like [...] 2 current occupational status: employed current occupation: [employer] pets and animals: Yes pets and animals: [...] presents to the office today for f/u. [facility] established 03.10.24 for screening colonoscopy. Pt [...] or o (more content not included)... Normal [facility] L7000.0750on 10-05-2024 P ELASTASE,FECA > 800 Normal >200 [facility] Comment on above: Result Comment: Resu lt Units: ug Elast./g Severe Pancreatic Insufficiency: <100 Moderate Pancreatic Insufficiency: 100 - 200 Normal: >200 Performed at: - [address] [id number] Flagger: Jacinto Shea MD, Phone: [phone] Performed By: #### L 7000.0700, M600.5000, L7000.0750, M100.637, M100.7900, M100.6796, M7400.3302 ####[facility] [address] [place], [address] CDIFF (PCR)on 09-30-2024 CDIFF A positive C. diffic ile molecular test does not differentiate between an active C. difficile infection and C. difficile colonization. Use clinical judgement and paired toxin/antigen testing to identify true infection and need for treatment. C diff DNA Spec Ql JO ANN+probe Reference Range: Negative Mr Banana GeneXpert: polymerase chain reaction (PCR) 027 027 NAP1-B1 Presumptive Negative *for epidemiolologic???use C. Diff PCR Negative- No toxigenic C. Diff Detected Normal [facility] Comment on above: Performed By: #### L 7000.0700, M600.5000, L7000.0750, M100.637, M100.7900, M100.6796, M7400.3302 ####[facility] [address] [place], [place], [phone] ENTERIC PATHOGEN PANEL STOOL on 09-30-2024 EP [...] VIBRIO Not Detected Yersinia Not Detected Normal [facility] Comment on above: Performed By: #### L 7000.0700, M600.5000, L7000.0750, M100.637, M100.7900, M100.6796, M7400.3302 ####[facility] [address] [place], [place], [phone](523) Stool Occult Blood iFOBon STOB Negative Normal [facility] Comment on above: Performed By: #### L 7000.0700, M600.5000, L7000.0750, M100.637, M100.7900, M100.6796, M7400.3302 ####[facility] [address] [place], [address] CBC W/Diff, Automatedon 07-0 Absolute Lymph 2.99 X10 3/uL Normal 0.83-4.51 [facility] Comment on above: Performed By: #### L 500.4050, L100.0100 ####[facility] [address] [place], [address] Absolute Neut 3.8 X10 3/uL Normal 2.0-7.7 [facility] Comment on above: Performed By: #### L 500.4050, L100.0100 ####[facility] [address] [place], [address] Basophils/100 WBC (Bld) 0.5 % Normal 0-1 [facility] Comment on above: Performed By: #### L 500.4050, L100.0100 ####[facility] [address] [place], [address] Eosinophils/100 WBC (Bld) 4.0 % Normal 0-5 [facility] Comment on above: Performed By: #### L 500.4050, L100.0100 ####[facility] [address] [place], [address] Erythrocyte distribution width (RBC) [Ratio] 11.9 % Normal 11.6-14.6 [facility] Comment on above: Performed By: #### L 500.4050, L100.0100 ####[facility] [address] [place], [address] Hematocrit (Bld) [Volume fraction] 38.3 % Normal 37-47 [facility] Comment on above: Performed By: #### L 500.4050, L100.0100 ####[facility] [address] [place], [address] Hemoglobin (Bld) [Mass/Vol] 13.7 g/dL Normal 12.0-15.0 [facility] Comment on above: Performed By: #### L 500.4050, L100.0100 ####[facility] [address] [place], [address] IG% 0.100 Normal 0.0-0.9 [facility] Comment on above: Result Comment: IG% - Immature Granulocytes (promyelocytes, myelocytes and metamyelocytes) > 1% indicates that a LEFT SHIFT is Present. Performed By: #### L 500.4050, L100.0100 ####[facility] [address] [place], [address] Lymphocytes/100 WBC (Bld) 39.8 % Normal 19-41 [facility] Comment on above: Performed By: #### L 500.4050, L100.0100 ####[facility] [address] [place], [address] MCH (RBC) [Entitic mass] 30.2 pg Normal 27.0-32.0 [facility] Comment on above: Performed By: #### L 500.4050, L100.0100 ####[facility] [address] [place], [address] MCHC (RBC) [Mass/Vol] 35.8 g/dL Normal 32-36 [facility] Comment on above: Performed By: #### L 500.4050, L100.0100 ####[facility] [address] [place], [address] MCV (RBC) [Entitic vol] 84.4 fL Normal 81-99 [facility] Comment on above: Performed By: #### L 500.4050, L100.0100 ####[facility] [address] [place], [address] Monocytes/100 WBC (Bld) 5.6 % Normal 0-10 [facility] Comment on above: Performed By: #### L 500.4050, L100.0100 ####[facility] [address] [place], [address] Neutrophils/100 WBC (Bld) 50.0 % Normal 47-70 [facility] Comment on above: Performed By: #### L 500.4050, L100.0100 ####[facility] [address] [place], [address] Nucleated RBC (Bld) [#/Vol] 0 10*3/uL Normal 0-5 [facility] Comment on above: Performed By: #### L 500.4050, L100.0100 ####[facility] [address] [place], [address] Platelet mean volume (Bld) [Entitic vol] 10.6 fL Normal 6.2-12.0 [facility] Comment on above: Performed By: #### L 500.4050, L100.0100 ####[facility] [address] [place], [address] Platelets (Bld) [#/Vol] 237 10*3/uL Normal 150-450 [facility] Comment on above: Performed By: #### L 500.4050, L100.0100 ####[facility] [address] [place], [address] RBC (Bld) [#/Vol] 4.54 10*6/uL Normal 4.2-5.[address] [facility] Comment on above: Performed By: #### L 500.4050, L100.0100 ####[facility] [address] [place], [address] RDW SD 36.3 fl Normal 35.1-43.9 [facility] Comment on above: Performed By: #### L 500.4050, L100.0100 ####[facility] [address] [place], [address] WBC (Bld) [#/Vol] 7.5 10*3/uL Normal 4.4-11.0 [facility] Comment on above: Performed By: #### L 500.4050, L100.0100 ####[facility] [address] [place], [address] Comprehensive Metabolic Prof ilon 09-29-2024 Albumin [Mass/Vol] 4.4 g/dL Normal 3.5-5.0 [facility] Comment on above: Performed By: #### L 500.4050, L100.0100 ####[facility] [address] [place], [address] Albumin/Globulin [Mass ratio] 1.5 {ratio} Normal 0.9-2.4 [facility] Comment on above: Performed By: #### L 500.4050, L100.0100 ####[facility] [address] [place], [address] ALK PHOS 53 U/L Normal 35-104 [facility] Comment on above: Performed By: #### L 500.4050, L100.0100 ####[facility] [address] [place], [address] ALT [Catalytic activity/Vol] 25 U/L Normal <=34 [facility] Comment on above: Performed By: #### L 500.4050, L100.0100 ####[facility] [address] [place], [address] AST [Catalytic activity/Vol] 29 U/L Normal <=31 [facility] Comment on above: Performed By: #### L 500.4050, L100.0100 ####[facility] [address] [place], [address] Bilirubin [Mass/Vol] 0.29 mg/dL Normal 0.00-1.30 [facility] Comment on above: Performed By: #### L 500.4050, L100.0100 ####[facility] [address] [place], [address] BUN/CRE 18.5 RATIO Normal 10-20 [facility] Comment on above: Performed By: #### L 500.4050, L100.0100 ####[facility] [address] [place], [address] Calcium [Mass/Vol] 9.5 mg/dL Normal 7.6-11.0 [facility] Comment on above: Performed By: #### L 500.4050, L100.0100 ####[facility] [address] [place], [address] Chloride [Moles/Vol] 102 mmol/L Normal 98-108 [facility] Comment on above: Performed By: #### L 500.4050, L100.0100 ####[facility] [address] [place], [address] CO2 [Moles/Vol] 22.0 mmol/L Normal 21.0-32.0 [facility] Comment on above: Performed By: #### L 500.4050, L100.0100 ####[facility] [address] [place], [address] Creatinine [Mass/Vol] 0.74 mg/dL Normal 0.70-1.20 [facility] Comment on above: Performed By: #### L 500.4050, L100.0100 ####[facility] [address] [place], [address] GAP 12 Normal 5-15 [facility] Comment on above: Performed By: #### L 500.4050, L100.0100 ####[facility] [address] [place], [address] GFR/1.73 sq M.predicted among non-blacks MDRD (S/P/Bld) [Vol rate/Area] 106 mL/min/{1.73_m2} Normal >60 [facility] Comment on above: Result Comment: mL/m in/1.73m2 CKD-EPI Creatinine Equation (2020) Performed By: #### L 500.4050, L100.0100 ####[facility] [address] [place], [address] Globulin (S) [Mass/Vol] 2.9 g/dL Normal 2.2-4.2 [facility] Comment on above: Performed By: #### L 500.4050, L100.0100 ####[facility] [address] [place], [address] Glucose [Mass/Vol] 109 mg/dL High 70-99 [facility] Comment on above: Performed By: #### L 500.4050, L100.0100 ####[facility] [address] [place], [address] Potassium [Moles/Vol] 3.5 mmol/L Normal 3.3-5.1 [facility] Comment on above: Performed By: #### L 500.4050, L100.0100 ####[facility] [address] [place], [address] Sodium [Moles/Vol] 136 mmol/L Normal 133-145 [facility] Comment on above: Performed By: #### L 500.4050, L100.0100 ####[facility] [address] [place], [address] T PROT 7.3 g/dL Normal 5.9-8.4 [facility] Comment on above: Performed By: #### L 500.4050, L100.0100 ####[facility] [address] [place], [address] Urea nitrogen [Mass/Vol] 14 mg/dL Normal 4-19 [facility] Comment on above: Performed By: #### L 500.4050, L100.0100 ####[facility] [address] [place], [address] Urine Cultureon 09-02-2024 [facility] Pending Mixed Gram Positive Organisms [place] Count 80,000-100,000 MIXC Mixed contaminants. Submit a new specimen if indicated. Normal [facility] Comment on above: Performed By: #### L 3890.6102, L3100.0460, L3890.6006, L3890.6301, L3890.6202 #### [facility] [address] [place], [address] Urinalysis, Routine (Dipstic k)on 08-31-2024 BILIRUBIN URINE Negative Normal Negative [facility] Comment on above: Order Comment: Reaso n for Exam: exposure Performed By: #### L 3890.6102, L3100.0460, L3890.6006, L3890.6301, L3890.6202 #### [facility] [address] [place], [address] Clarity (U) Sl. Cloudy Normal Clear [facility] Comment on above: Order Comment: Reaso n for Exam: exposure Performed By: #### L 3890.6102, L3100.0460, L3890.6006, L3890.6301, L3890.6202 #### [facility] [address] [place], [address] Color (U) Yellow Normal Yellow [facility] Comment on above: Order Comment: Reaso n for Exam: exposure Performed By: #### L 3890.6102, L3100.0460, L3890.6006, L3890.6301, L3890.6202 #### [facility] [address] [place], [address] GLUCOSE, UR Normal Normal Normal [facility] Comment on above: Order Comment: Reaso n for Exam: exposure Performed By: #### L 3890.6102, L3100.0460, L3890.6006, L3890.6301, L3890.6202 #### [facility] [address] [place], [address] KETONE UR Negative Normal Negative [facility] Comment on above: Order Comment: Reaso n for Exam: exposure Performed By: #### L 3890.6102, L3100.0460, L3890.6006, L3890.6301, L3890.6202 #### [facility] [address] [place], [address] LEUK ESTERASE Negative Normal Negative [facility] Comment on above: Order Comment: Reaso n for Exam: exposure Performed By: #### L 3890.6102, L3100.0460, L3890.6006, L3890.6301, L3890.6202 #### [facility] [address] [place], [address] Nitrite Ql (U) Negative Normal Negative [facility] Comment on above: Order Comment: Reaso n for Exam: exposure Performed By: #### L 3890.6102, L3100.0460, L3890.6006, L3890.6301, L3890.6202 #### [facility] [address] [place], [address] OCCULT BLOOD-UR 10 /ul Abnormal Negative [facility] Comment on above: Order Comment: Reaso n for Exam: exposure Performed By: #### L 3890.6102, L3100.0460, L3890.6006, L3890.6301, L3890.6202 #### [facility] [address] [place], [address] pH UR 7.0 Normal 5.0 - 8.0 [facility] Comment on above: Order Comment: Reaso n for Exam: exposure Performed By: #### L 3890.6102, L3100.0460, L3890.6006, L3890.6301, L3890.6202 #### [facility] [address] [place], [address] PROT DIPSTX 15 mg/dl Abnormal Negative [facility] Comment on above: Order Comment: Reaso n for Exam: exposure Performed By: #### L 3890.6102, L3100.0460, L3890.6006, L3890.6301, L3890.6202 #### [facility] [address] [place], [address] SP.GR. DIPSTX 1.010 Normal 1.002-1.030 [facility] Comment on above: Order Comment: Reaso n for Exam: exposure Performed By: #### L 3890.6102, L3100.0460, L3890.6006, L3890.6301, L3890.6202 #### [facility] [address] [place], [address] UROBILI Normal Normal Normal [facility] Comment on above: Order Comment: Reaso n for Exam: exposure Performed By: #### L 3890.6102, L3100.0460, L3890.6006, L3890.6301, L3890.6202 #### [facility] [address] [place], [address] Gastric Emptying Studyon Gastric Emptying Study [facility] Imaging Services [address] [place] [address] Gastric Emptying Study MR#: [id number] Acct: [id number] Name: BEATRICE BORREGO Rep #: [id number] : 1985 F 38 From: Ronnie Fernandez PCP: Dr. Librado Ybarra, DO Status: REG CLI Study: Gastric Emptying Study Date of Exam: 08/10/24 Exam# [id number] Ordering Dr: Hali Ruiz PROCEDURE: GASTRIC EMPTYING STUDY 08/10/2024 REASON FOR EXAM: BILE ACID REFLUX COMPARISON: None. TECHNIQUE: The patient ingested a standard semi-solid meal oatmeal.. There was no vomiting postprandially. Anterior and posterior planar images of the upper abdomen were obtained for a total of 60 minutes. Regions of interest were drawn, and a geometric mean was used to calculate a ouqw-kyysnyzx-ceetc. Medications taken in the past 24 hours [...] of 39% at 60 minutes. Reading Location: [place] [address] CC: Dr. Librado Ybarra DO; LAVONNE Loja Reliner: Signed Normal [facility] CCP IgG Antibodieson 025 CCP IgG Ab. 6 units Normal 0-19 [facility] Comment on above: Result Comment: Nega tive <20 Weak positive 20 - 39 Moderate positive 40 - 59 Strong positive >59 Performed at: [address] [id number] Flagger: Dany White PhD, Phone: [phone] Performed By: #### L 3890.6102, L3100.0460, L3890.6006, L3890.6301, L3890.6202 #### [facility] [address] [place], [address] CBC W/Diff, Automatedon 06-30 Absolute Lymph 3.19 X10 3/uL Normal 0.83-4.51 [facility] Comment on above: Performed By: #### L 3890.6102, L3100.0460, L3890.6006, L3890.6301, L3890.6202 #### [facility] [address] [place], [address] Absolute Neut 5.5 X10 3/uL Normal 2.0-7.7 [facility] Comment on above: Performed By: #### L 3890.6102, L3100.0460, L3890.6006, L3890.6301, L3890.6202 #### [facility] [address] [place], [address] Basophils/100 WBC (Bld) 0.5 % Normal 0-1 [facility] Comment on above: Performed By: #### L 3890.6102, L3100.0460, L3890.6006, L3890.6301, L3890.6202 #### [facility] [address] [place], [address] Eosinophils/100 WBC (Bld) 3.7 % Normal 0-5 [facility] Comment on above: Performed By: #### L 3890.6102, L3100.0460, L3890.6006, L3890.6301, L3890.6202 #### [facility] [address] [place], [address] Erythrocyte distribution width (RBC) [Ratio] 12.3 % Normal 11.6-14.6 [facility] Comment on above: Performed By: #### L 3890.6102, L3100.0460, L3890.6006, L3890.6301, L3890.6202 #### [facility] [address] [place], [address] Hematocrit (Bld) [Volume fraction] 38.6 % Normal 37-47 [facility] Comment on above: Performed By: #### L 3890.6102, L3100.0460, L3890.6006, L3890.6301, L3890.6202 #### [facility] [address] [place], [address] Hemoglobin (Bld) [Mass/Vol] 13.8 g/dL Normal 12.0-15.0 [facility] Comment on above: Performed By: #### L 3890.6102, L3100.0460, L3890.6006, L3890.6301, L3890.6202 #### [facility] [address] [place], [address] IG% 0.300 Normal 0.0-0.9 [facility] Comment on above: Result Comment: IG% - Immature Granulocytes (promyelocytes, myelocytes and metamyelocytes) > 1% indicates that a LEFT SHIFT is Present. Performed By: #### L 3890.6102, L3100.0460, L3890.6006, L3890.6301, L3890.6202 #### [facility] [address] [place], [address] Lymphocytes/100 WBC (Bld) 32.8 % Normal 19-41 [facility] Comment on above: Performed By: #### L 3890.6102, L3100.0460, L3890.6006, L3890.6301, L3890.6202 #### [facility] [address] [place], [address] MCH (RBC) [Entitic mass] 30.7 pg Normal 27.0-32.0 [facility] Comment on above: Performed By: #### L 3890.6102, L3100.0460, L3890.6006, L3890.6301, L3890.6202 #### [facility] [address] [place], [address] MCHC (RBC) [Mass/Vol] 35.8 g/dL Normal 32-36 [facility] Comment on above: Performed By: #### L 3890.6102, L3100.0460, L3890.6006, L3890.6301, L3890.6202 #### [facility] [address] [place], [address] MCV (RBC) [Entitic vol] 86.0 fL Normal 81-99 [facility] Comment on above: Performed By: #### L 3890.6102, L3100.0460, L3890.6006, L3890.6301, L3890.6202 #### [facility] [address] [place], [address] Monocytes/100 WBC (Bld) 6.0 % Normal 0-10 [facility] Comment on above: Performed By: #### L 3890.6102, L3100.0460, L3890.6006, L3890.6301, L3890.6202 #### [facility] [address] [place], [address] Neutrophils/100 WBC (Bld) 56.7 % Normal 47-70 [facility] Comment on above: Performed By: #### L 3890.6102, L3100.0460, L3890.6006, L3890.6301, L3890.6202 #### [facility] [address] [place], [address] Nucleated RBC (Bld) [#/Vol] 0 10*3/uL Normal 0-5 [facility] Comment on above: Performed By: #### L 3890.6102, L3100.0460, L3890.6006, L3890.6301, L3890.6202 #### [facility] [address] [place], [address] Platelet mean volume (Bld) [Entitic vol] 10.7 fL Normal 6.2-12.0 [facility] Comment on above: Performed By: #### L 3890.6102, L3100.0460, L3890.6006, L3890.6301, L3890.6202 #### [facility] [address] [place], [address] Platelets (Bld) [#/Vol] 227 10*3/uL Normal 150-450 [facility] Comment on above: Performed By: #### L 3890.6102, L3100.0460, L3890.6006, L3890.6301, L3890.6202 #### [facility] [address] [place], [address] RBC (Bld) [#/Vol] 4.49 10*6/uL Normal 4.2-5.[address] [facility] Comment on above: Performed By: #### L 3890.6102, L3100.0460, L3890.6006, L3890.6301, L3890.6202 #### [facility] [address] [place], [address] RDW SD 38.6 fl Normal 35.1-43.9 [facility] Comment on above: Performed By: #### L 3890.6102, L3100.0460, L3890.6006, L3890.6301, L3890.6202 #### [facility] [address] [place], [address] WBC (Bld) [#/Vol] 9.7 10*3/uL Normal 4.4-11.0 [facility] Comment on above: Performed By: #### L 3890.6102, L3100.0460, L3890.6006, L3890.6301, L3890.6202 #### [facility] [address] [place], [address] Emergency Department Summary on 07-20-2024 Emergency Department Summary [facility] Medical Records Department [address] [place] [address] Emergency Department Summary 07/20/24 MR#: [id number] Acct: [id number] Name: BEATRICE BORREGO Rep #: [id number] : 1985 38 From: Spenser Samuel PCP: [...] tab PO DAILY 05/20/2407/19/2 5 History omega 5-tti-gug-fish oil 1,200 mg 1 cap PO DAILY [...] 2 current occupational status: employed current occupation: [employer] pets and animals: Yes pets and [...] Respiratory/Chest Respiratory/Cherry (more content not included)... Normal [facility] ,Urineon 07-20-2024 Beta HCG ( test) Ql (U) Negative Normal [facility] Comment on above: Result Comment: Very dilute urine specimens, as indicated by a low specific gravity, may not contain scheduling representative levels of hCG. If is still suspected, a first morning urine specimen should be collected 48 hours later and tested. Performed By: #### L 3890.6102, L3100.0460, L3890.6006, L3890.6301, L3890.6202 #### [facility] [address] [facility] [place], [address] Transvaginal Non-on 07-20-2024 Transvaginal Non- [facility] Imaging Services [address] [place] [address] Transvaginal Non- MR#: [id number] Acct: [id number] Name: BEATRICE BORREGO Rep #: [id number] : 1985 F 38 From: Obdulio cloud MD PCP: Dr. Librado Ybarra, Status: [facility] ER Study: Transvaginal Non- Date of Exam: Exam# [id number] Ordering Dr: Spenser Eldridge DO PROCEDURE: TRANSVAGINAL [...] uterus with the fundal fibroid. Reading Location: [facility] CC: Dr. Librado Ybarra, DO; Dr. Spenser Eldridge, DO Reliner: Signed Normal [facility] CRPon 07-19-2024 C-REACTIVE PROT 4.03 mg/L High 0.0-3.0 [facility] Comment on above: Performed By: #### L 3890.6102, L3100.0460, L3890.6006, L3890.6301, L3890.6202 #### [facility] [address] [place], [place], [address] Erythrocyte Sed Rateon 07-19 SED RATE 5 mm/hr Normal 0-30 [facility] Comment on above: Performed By: #### L 3890.6102, L3100.0460, L3890.6006, L3890.6301, L3890.6202 #### [facility] [address] [place], [place], [address] Rheumatoid Factoron 07-20-19 25 RHEUMATOID FAC < 10.0 Normal <15 [facility] Comment on above: Performed By: #### L 3890.6102, L3100.0460, L3890.6006, L3890.6301, L3890.6202 #### [facility] [address] [place], [place], [address] [employer] Office Visit Reporton 07-13-2024 Purchasing Internship Office Visit Report [facility] [address], [address] [place] [address] OFFICE VISIT Date of Service: 07/13/24 MR#: [id number] Acct: [id number] Name: BEATRICE BORREGO Rep #: [id number] : 1985 Provider: Dr. Mony hinojosa MD Age/Sex: 38/F Location[place] [facility] Status: Signed Intake Vital Signs 06/16/24 11:03 [...] tab PO DAILY 05/20/24 5 History omega 0-hit-xud-fish oil 1,200 mg 1 cap PO DAILY [...] 2 current occupational status: employed current occupation: [employer] pets and animals: Yes pets and [...] small uterine fibroids, has been treated by [facility] in the past. she just started a new job so she would prefer conservative management, just started OCP by [facility]. she had an otherwise normal workup, EMB, has had hyperplasia in the past that resolved. she is open to a hysterectomy potatnially in the future if needed. Female Reproductive History Last Menstrual Period: 0 (more content not included)... Normal [facility] HEPATITIS B SURFACE ANTIBODY on 06-16-2024 Hep Bs Antibody, QN >1000.00 Invalid Interpretation Code [facility] Comment on above: Order Comment: Relea se to patient->Automatic Result Comment: Veri fied By: [id number] Hepatitis Bs Antibody Positive Abnormal Negative [facility] on [facility] Comment on above: Order Comment: Relea se to patient->Automatic Result Comment: Refe rence value: Unvaccinated: Negative Vaccinated: Positive Anti-HBs concentration detected at > or = 11.5 mIU/mL. Individual is considered to be immune to infection with HBV. Verified By: [id number] Hepatitis B Surface Antibody Ordered By: Background Lab on 06-16-2024 HBV surface Ab Ql (S) Positive Abnormal Negative Ak[facility] Comment on above: Reference value: Unv accinated: Negative Vaccinated: Positive Anti-HBs concentration detected at > or = 11.5 mIU/mL. Individual is considered to be immune to infection with HBV. Verified By: [id number] Hep Bs Antibody, QN mIU/mL [facility] Comment on above: Verified By: [id number] Interpretation and review of laboratory results Abnormal [facility] MR/BMS.Holly 06-16-2024 MR[facility]BMS.BP [facility] [address] [place] [address], [address] [place] [id number] OFFICE VISIT Date of Service: 06/16/24 MR#: [id number] Acct: [id number] Name: BEATRICE BORREGO Rep #: [id number] : 1985 Provider: Dr. 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 Describes having some significant fatigue. Has been [...] from medications. Follows with Rhianna Hagan at [facility]. Feels like relationship has been improving in recent past. Denies SI/HI or AVH. Review of Systems Constitutional Reports: change in weight (loss); Denies: fever(s), chills or (more content not included)... Normal [facility] QUANTIFERON TB GOLDon 2024 Mitogen minus NIL >9.98 Invalid Interpretation Code [facility] Comment on above: Order Comment: Quant iFERON-TB [...] repeated on a new specimen. Testing Performed: [facility] [address] [place] [address] Release to patient->Automatic Quantiferon TB Gold Negative Invalid Interpretation Code Negative [facility] Comment on above: Order Comment: Quant iFERON-TB [...] repeated on a new specimen. Testing Performed: [facility] [address] [place] [address] Release to patient->Automatic TB1 minus NIL 0.00 IU/mL Invalid Interpretation Code -0.50-0.34 [facility] Comment on above: Order Comment: Quant iFERON-TB [...] repeated on a new specimen. Testing Performed: [address] [address] Release to patient->Automatic TB2 minus NIL 0.00 IU/mL Invalid Interpretation Code -0.50-0.34 [facility] Comment on above: Order Comment: Quant iFERON-TB [...] repeated on a new specimen. Testing Performed: [place] [address] Release to patient->Automatic Gastroenterology Visit Repor ton 06-15-2024 Gastroenterology Visit Report [facility] [address] [place] [address] OFFICE VISIT Date of Service: 06/15/24 MR#: [id number] Acct: [id number] Name: BEATRICE BORREGO Rep #: [id number] : 1985 Provider: LAVONNE Loja Age/Sex: 38/F Location[place] [facility] Status: Signed Intake Vital Signs 11/12/23 [...] PO QHS 05/20/24 05/31/24 Hi story omega 6-eba-lmn-fish oil 1,200 mg 1 cap PO DAILY 05/20/24 05/31/24 History (144 mg-216 mg) capsule (Fish Oil) omeprazole 40 mg capsule,delayed 40 mg PO QDAY #60 caps 06/01/24 R x release Nurse's Note: OV 06.15.24 Pt here for f/u and reports nausea, abdominal pain, diarrhea, constipation, gas, bloating daily and heartburn at night a few times a week. Pt continues omeprazole, and iron supplement. 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 [facility] established 03.10.24 for screening colonoscopy. Pt [...] 4-5 bm (more content not included)... Normal [facility] Urgent Care Visit Reporton 0 05-31-2024 Urgent Care Visit Report [facility] [address], [address] [place] [address] OFFICE VISIT Date of Service: 05/31/24 MR#: [id number] Acct: [id number] Name: BEATRICE BORREGO Rep #: [id number] : 1985 Provider: NAYANA Clark Age/Sex: 38/F Location: [facility] Status: Signed Intake Vital Signs 05/25/24 11:47 [...] PO QHS 05/20/24 05/31/24 Hi story omega 1-spo-phx-fish oil 1,200 mg 1 cap PO DAILY 05/20/24 05/31/24 History (144 mg-216 mg) capsule (Fish Oil) Nurse's Note: Patient has congestion, ST and rattling in her chest with pressure. Patient states her daughter had flu A and pneumonia last week. 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 Normal [facility] Bedside Glucoseon 05-25-2024 FINGERSTICK GLU 78 mg/dL Normal 74-106 [facility] Comment on above: Result Comment: KAREL YARBROUGH OF PATIENT CARE PER NURSING PROTOCOL Performed By: #### L 501.080 ####[facility] [address] [facility] [place], [address] Colonoscopy Reporton [address] [facility] Medical Records Department [address] [facility] [place] [address] Colonoscopy Report MR#: [id number] Acct: [id number] Name: BEATRICE BORREGO Rep #: [id number] : 1985 38 From: Erick Carnes DO PCP: Dr. Librado Ybarra DO Status[place] Patient Name: Beatrice Borrego Procedure Date: 05/25/2024 [...] for surveillance. Procedure Code(s): --- Professional --- 35446, Colonoscopy, flexible; with biopsy, single or multiple CPT copyright 2021 [employer]. All rights reserved. The codes documented in this report are preliminary and upon machine mover review may be revised to meet current compliance requirements. Erick Carnes DO 05/25/2024 1:20:55 PM This report has been signed electronically. Number of Addenda: 0 Note Initiated On: 05/25/2024 12:54 PM 05/25/24 1320 Date Erick Carnes DO Cosigner Signature: Date (if indicated) CC: Dr. Librado Ybarra DO; Erick Carnes DO Date Dictated: 05/25/24 1254 Date Transcribed: Reliner: CHILANGO Signed Normal [facility] EGD Reporton 05-25-[address] [facility] Medical Records Department [address] [place] [address] EGD Report MR#: [id number] Acct: [id number] Name: BEATRICE BORREGO Rep #: [id number] : 1985 38 From: Erick Carnes DO PCP: Dr. Librado Ybarra DO Status:[facility] Patient Name: Beatrice Borrego Procedure Date: 05/25/2024 [...] pathology results. Procedure Code(s): --- Professional --- 84184, Esophagogastroduodenoscop y, flexible, transoral; with biopsy, single or multiple CPT copyright 2021 [employer]. All rights reserved. The codes documented in this report are preliminary and upon machine mover review may be revised to meet current compliance requirements. Erick Carnes DO 05/25/2024 1:18:22 PM This report has been signed electronically. Number of Addenda: 0 Note Initiated On: 05/25/2024 12:35 PM 05/25/24 1318 Date Erick Baez Signature: Date (more content not included)... Normal [facility] H Pylori (initial)on 025 H Pylori (initial) ----- Patient Age/Sex Location Account Attending Physician BEATRICE BORREGO 38/F EN [id number] Erick Carnes DO Specimen: [id number] Received: 05/26/24 Status: IFRAH Peng Num: [id number] Spec Type: IMMUNO Subm Dr: Erick Carnes DO PHYSICIAN INSTITUTION [place] [address] SPECIMEN INFORMATION: Tissue Source: B- Gastric antrum biopsy Clinical Info: Routine cancer screening Specimen Number: [id number] B CPT code: 65160 METHODOLOGY: Deparaffinized sections of prefer/formalin-fixed tissue or [...] developed and their performance characteristics determined by [facility]. They may not have been [...] Dr. Abdirahman Trinh MD 05/27/24 1343 Normal [facility] Comment on above: Performed By: #### P H.PYLORI ####[facility] [id number] [place], [address] MR/POSTOP.ANEon 05-25-2024 MR/POSTOP.[facility] Medical Records Department [address] [place] [address] Anesthesia Postop Eval I 05/25/24 1317 MR#: [id number] Acct: [id number] Name: BEATRICE BORREGO Rep #: [id number] : 1985 38 From: Eloy Dickinson PCP: Dr. Librado Ybarra, DO Status:REG SDC Y Race: C Location: [place] [address] Anesthesia: Postop Eval I Current Vital Signs [...] Dickinson Cosignvenice Signature: Date CC: Signed Normal [facility] MR/[id number] 05-25-2024 MR/POSTOPAN2 [facility] Medical Records Department [address] [place] [address] Anesthesia Postop Eval II 05/25/24 1842 MR#: [id number] Acct: [id number] Name: BEATRICE BORREGO Rep #: [id number] : 1985 38 From: Herbert Hair MD PCP: Dr. Librado Ybarra, DO Status:[facility] Y Race: C Location: EN Anesthesia Postop [...] MD Cosigner Signature: Date CC: Signed Normal [facility] ,Urineon 05-25-2024 Beta HCG ( test) Ql (U) Negative [facility] Comment on above: Result Comment: Very dilute urine specimens, as indicated by a low specific gravity, may not contain scheduling representative levels of hCG. If is still suspected, a first morning urine specimen should be collected 48 hours later and tested. Performed By: #### L 3890.6102, L3100.0460, L3890.6006, L3890.6301, L3890.6202 #### [facility] [place], [address] Special Stain Group Ion 02- Special Stain Group I ------- Patient Age/Sex Location Account Attending Physician BEATRICE BORREGO 38/F EN [id number] Erick Carnes DO Specimen: [id number] Received: 05/26/24 Status: IFRAH Peng Num: [id number] Spec Type: COLON BX Subm Dr: Erick [...] for Helicobacter pylori will be reported separately ([id number]). C. Alcian blue/PAS stain with matched control [...] Account Attending Physician BEATRICE BORREGO 38/F EN [id number] Erick Carnes DO B. Received in fixative [...] totally submitted in one cassette. 05/26/2024 TC:1 [facility]:[id number] Patient Age/Sex Location Account Attending Physician BEATRICE BORREGO 38/F EN [id number] Erick Deyvi, DO Signed (signature on file) Dr. Abdirahman Trinh MD 05/27/24 1338 Normal [facility] Comment on above: Performed By: #### L 3890.6102, L3100.0460, L3890.6006, L3890.6301, L3890.6202 #### [facility] [address] [place], [address] Gastroenterology Visit Repor ton 03-10-2024 Gastroenterology Visit Report [facility] Gastroenterology [address] [place] [address] OFFICE VISIT Date of Service: 03/10/24 MR#: [id number] Acct: [id number] Name: BEATRICE BORREGO Rep #: [id number] : 1985 Provider: LAVONNE Loja Age/Sex: 38/F [facility] Status: Signed Intake Vital Signs 11/12/23 [...] house current occupational status: employed 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 Pt is here today to get [...] Const General: (more content not included)... Normal [facility] Final Surgical Pathology Rep chinmay 03-08-2024 Final Surgical Pathology Report . Pathology Reports Accession: Collected Date/Time: Received Date/Time: Pathologist: [id number] 03/03/2024 16:57 EST 03/05/2024 08:49 EST MASSIMO SALGUERO MD Final Surgical Pathology Report DIAGNOSIS: ENDOMETRIAL BIOPSY: - SECRETORY ENDOMETRIUM - NEGATIVE FOR HYPERPLASIA OR MALIGNANCY COMMENT: [facility] [id number] CLINICAL INFORMATION: MENORRHAGIA WITH REGULAR CYCLE SPECIMEN: A ENDOMETRIUM GROSS DESCRIPTION: All parts labelled with patient name and [id number] Received in formalin labeled undesignated are multiple girard-pink and hemorrhagic tissue fragments aggregating to 0.1 x 0.7 x 0.3 cm. Smallest fragments may not survive processing. TS-1 Gladis Presley, Grossing Regional Manager/ Dr. Neo Zaragoza, Pathologist Performed by Gladis Presley MICROSCOPIC DESCRIPTION: The microscopic examination is performed, except in the case of Gross Only. Electronically Signed by Pathology Report verified by [facility] MASSIMO SALGUERO Sign out Date: 03/08/2024 10:10 Performing Lab: [facility], [address] [place] [address] Pathology Dept Disclaimer If ancillary studies were utilized, the following Laboratory Developed Test (LDT) disclaimer will apply: Under CLIA requirements, [facility] is qualified to perform high complexity testing. For all ancillary stains, positive and negative controls stain appropriately. Performance characteristics of immunohistochemical and chromogenic in-situ hybridization tests have been determined by [facility]. These tests are used for clinical purposes, They should not be regarded as investigational or for research. Normal [facility] Absolute lymphocyte counton 01-06-2022 Lymphocytes Auto (Unsp spec) [#/Vol] 3.59 10*3/uL 0.83-4.51 [facility] Work Phone: Basophil percentageon 2021 Basophils/100 WBC (Bld) 0.5 % 0-1 [facility] Work Phone: Chloride [Moles/Vol] 104 mmol/L 98-107 [facility] Work Phone: Eosinophils/100 WBC (Bld) 3.1 % 0-5 [facility] Work Phone: Glucose [Mass/Vol] 92 mg/dL 74-106 [facility] Work Phone: Neutrophils (Bld) [#/Vol] 5.0 10*3/uL 2.0-7.7 [facility] Work Phone: Neutrophils/100 WBC (Bld) 52.8 % 47-70 [facility] Work Phone: Potassium [Moles/Vol] 3.9 mmol/L 3.5-5.1 [facility] Work Phone: Sodium [Moles/Vol] 137 mmol/L 136-145 [facility] Work Phone: WBC (Bld) [#/Vol] 9.5 10*3/uL 4.4-11.0 [facility] Work Phone: Beta hCG serum qualon 2021 Beta HCG ( test) Ql Negative [facility] Work Phone: Blood erythrocytes count (nu mber/volume)on 01-06-2022 RBC (Bld) [#/Vol] 4.89 10*6/uL 4.2-5.4 [facility]: Blood hemoglobin measurement (mass/volume)on 01-06-2022 Hemoglobin (Bld) [Mass/Vol] 14.7 g/dL 12.0-15.0 [facility] Work Phone: Blood lymphocytes/100 leukoc yteson 01-06-2022 Lymphocytes/100 WBC (Bld) 37.8 % 19-41 [facility] Work Phone: Blood monocytes/100 leukocyt eson 01-06-2022 Monocytes/100 WBC (Bld) 5.5 % 0-10 [facility] Work Phone: Blood platelet mean volumeon 01-06-2022 Platelet mean volume (Bld) [Entitic vol] 11.4 fL 6.2-12.0 [facility] Work Phone: Determination of erythrocyte mean corpuscular volume (MCV)on 01-06-2022 MCV (RBC) [Entitic vol] 91.6 fL 81-99 [facility] Work Phone: [phone] Hematocrit Auto (Bld) [Volum e fraction]on 01-06-2022 Hematocrit (Bld) [Volume fraction] 44.8 % 37-47 [facility] Work Phone: Laboratory - Chemistry and C hemistry - challengeon 01-06-2022 CO2 [Moles/Vol] 25.0 mmol/L 21.0-32.0 [facility] Work Phone: Urea nitrogen/Creatinine [Mass ratio] 19.7 mg/mg 10-20 [facility] Work Phone: Laboratory - Drug toxicology on 01-06-2022 Amphetamines Ql (U) Negative <1000 ng/mL [facility] Work Phone: Benzodiazepines Ql (U) Negative < 200 ng/mL [facility] Work Phone: Cannabinoids Screen Ql (U) Negative < 50 ng/mL [facility] Work Phone: Cocaine Ql (U) Negative < 300 ng/mL [facility] Work Phone: Opiates Ql (U) Negative < 300 ng/mL [facility] Work Phone: Laboratory - Hematology and Cell countson 01-06-2022 Erythrocyte distribution width (RBC) [Entitic vol] 40.2 fL 35.1-43.9 [facility] Work Phone: [phone] Erythrocyte distribution width (RBC) [Ratio] 12.0 % 11.6-14.6 [facility] Work Phone: Immature granulocytes/100 WBC (Bld) 0.300 % 0.0-0.9 [facility] Work Phone: Comment on above: IG% - Immature Granu locytes (promyelocytes, myelocytes and metamyelocytes) > 1% indicates that a LEFT SHIFT is Present. MCH (RBC) [Entitic mass] 30.1 pg 27.0-32.0 [facility] Work Phone: Nucleated RBC/100 WBC (Bld) [Ratio] 0 % 0-5 [facility] Work Phone: MCHC Auto (RBC) [Mass/Vol]on 01-06-2022 MCHC (RBC) [Mass/Vol] 32.8 g/dL 32-36 [facility] Work Phone: No Panel Informationon 01-06 Estimated Creatinine Clearance Calc 99.80 ml/min [facility] Work Phone: Estimated GFR (MDRD) Amer 129 mL/min >60 [facility] Work Phone: Comment on above: GFR Calc Estimated GFR (MDRD) Non-Af Amer 107 mL/min >60 [facility] Work Phone: Comment on above: Non- GFR Calc Ethyl Alcohol Level 7.0 mg/dL [facility] Work Phone: Comment on above: The serum:whole bloo d ethanol ratio is approximately 1.14and varies slightly with hematocrit. Medical Alcohol reference interval and critical value innon-tolerant individuals; 50 - 100 Impairment 100 Intoxication 100 - 250 Severe Poisoning 250 - 400 Deep/possible fatal coma MDMA (Ecstasy) Screen Negative < 500 ng/mL [facility] Work Phone: Urine Barbiturates Screen Negative < 200 ng/mL [facility] Work Phone: Urine Drug Screen Comment [facility] Work Phone: Comment on above: CONFIRMATORY [...] Methadone Screen Negative < 300 ng/mL [facility] Work Phone: Platelets bldon 01-06-2022 Platelets (Bld) [#/Vol] 187 10*3/uL 150-450 [facility] Work Phone: Serum or plasma calcium archana urement (mass/volume)on 01-06-2022 Calcium [Mass/Vol] 9.8 mg/dL 8.5-10.1 [facility] Work Phone: Serum or plasma creatinine m easurement (mass/volume)on 01-06-2022 Creatinine [Mass/Vol] 0.66 mg/dL 0.55-1.02 [facility] Work Phone: Comment on above: The validity of the calculated GFR & GFRAA in patients over 70 years has not been determined. Clinical correlation is essential. Serum or plasma urea nitroge n measurement (mass/volume)on 01-06-2022 Urea nitrogen [Mass/Vol] 13 mg/dL 7-18 [facility] Work Phone: Thin prep Papanicolaou smear with manual screeningon 01-06-2022 Thin prep Papanicolaou smear with manual screening 8 5-15 [facility] Work Phone: Urine phencyclidine (PCP) de tectionon 01-06-2022 Phencyclidine Ql (U) Negative < 25 ng/mL [facility] Work Phone: Absolute lymphocyte counton 11-23-2021 Lymphocytes Auto (Unsp spec) [#/Vol] 2.81 10*3/uL 0.83-4.51 [facility] Work Phone: Absolute reticulocyte counto n 11-23-2021 Reticulocytes (Bld) [#/Vol] 0.00 10*3/uL 0-5 [facility] Work Phone: Basophil percentageon 2021 Basophil percentage 3.0 mg/dL 2.5-4.9 [facility] Work Phone: Bilirubin [Mass/Vol] 0.70 mg/dL 0.20-1.00 [facility] Work Phone: Comment on above: For patients on eltr ombopag therapy, use of Dimension [place] TBIL is not recommended. Chloride [Moles/Vol] 105 mmol/L 98-107 [facility] Work Phone: Cholesterol [Mass/Vol] 240 mg/dL <200 [facility] Work Phone: Comment on above: <200 mg/dL Desirable 200-240 mg/dL Borderline >240 mg/dL High Risk Glucose [Mass/Vol] 88 mg/dL 74-106 [facility] Work Phone: Neutrophils (Bld) [#/Vol] 4.4 10*3/uL 2.0-7.7 [facility] Work Phone: Potassium [Moles/Vol] 4.1 mmol/L 3.5-5.1 [facility] Work Phone: Protein [Mass/Vol] 8.0 g/dL 6.4-8.2 [facility] Work Phone: Sodium [Moles/Vol] 136 mmol/L 136-145 [facility] Work Phone: Triglyceride [Mass/Vol] 136 mg/dL <199 [facility] Work Phone: Comment on above: The drugs N-Acetylcy steine and Metamizole may falsely depress this assay.Serum Triglycerides Reference Interval Normal <150 mg/dL Borderline high 150 - 199 mg/dL High 200 - 499 mg/dL Very High > or = 500 mg/dL WBC (Bld) [#/Vol] 8.0 10*3/uL 4.4-11.0 [facility] Work Phone: Bilirubin Test strip Ql (U)o n 11-23-2021 Bilirubin Ql (U) Negative Negative [facility] Work Phone: Blood erythrocytes count (nu mber/volume)on 11-23-2021 RBC (Bld) [#/Vol] 4.83 10*6/uL 4.2-5.[address] [facility] Work Phone: [phone] Blood hemoglobin measurement (mass/volume)on 11-23-2021 Hemoglobin (Bld) [Mass/Vol] 14.6 g/dL 12.0-15.0 [facility] Work Phone: Blood platelet mean volumeon 11-23-2021 Platelet mean volume (Bld) [Entitic vol] 11.4 fL 6.2-12.0 [facility] Work Phone: [phone] Determination of erythrocyte mean corpuscular volume (MCV)on 11-23-2021 MCV (RBC) [Entitic vol] 90.3 fL 81-99 [facility] Work Phone: Direct bilirubinon Bilirubin.direct [Mass/Vol] 0.11 mg/dL 0.00-0.30 [facility] Work Phone: Hematocrit Auto (Bld) [Volum e fraction]on 11-23-2021 Hematocrit (Bld) [Volume fraction] 43.6 % 37-47 [facility] Work Phone: Ketones Test strip Ql (U)on 11-23-2021 Ketones Ql (U) Negative Negative [facility] Work Phone: [phone] Laboratory - Chemistry and C hemistry - challengeon 11-23-2021 ALP [Catalytic activity/Vol] 57 U/L 45-117 [facility] Work Phone: ALT [Catalytic activity/Vol] 56 U/L 13-56 [facility] Work Phone: Cholesterol.total/Tatianna sterol in HDL [Mass ratio] 4.60 {ratio} [facility] Work Phone: [phone] CO2 [Moles/Vol] 25.0 mmol/L 21.0-32.0 [facility] Work Phone: Globulin (S) [Mass/Vol] 3.7 g/dL 2.2-4.2 [facility] Work Phone: Urea nitrogen/Creatinine [Mass ratio] 25.0 mg/mg 10-20 [facility] Work Phone: [phone] Laboratory - Hematology and Cell countson 11-23-2021 Erythrocyte distribution width (RBC) [Entitic vol] 40.6 fL 35.1-43.9 [facility] Work Phone: [phone] Erythrocyte distribution width (RBC) [Ratio] 12.3 % 11.6-14.6 [facility] Work Phone: [phone] MCH (RBC) [Entitic mass] 30.2 pg 27.0-32.0 [facility] Work Phone: [phone] Nucleated RBC/100 WBC (Bld) [Ratio] 0 % 0-5 [facility] Work Phone: MCHC Auto (RBC) [Mass/Vol]on 11-23-2021 MCHC (RBC) [Mass/Vol] 33.5 g/dL 32-36 [facility] Work Phone: Nitrite Test strip Ql (U)on 11-23-2021 Nitrite Ql (U) Negative Negative [facility] Work Phone: No Panel Informationon 11-23 Estimated GFR (MDRD) Amer 134 mL/min >60 [facility] Work Phone: Comment on above: GFR Calc Estimated GFR (MDRD) Non-Af Amer 110 mL/min >60 [facility] Work Phone: Comment on above: Non- GFR Calc Platelets bldon 11-23-2021 Platelets (Bld) [#/Vol] 253 10*3/uL 150-450 [facility] Work Phone: Protein Test strip Ql (U)on 11-23-2021 Protein Ql (U) Negative Negative [facility] Work Phone: Segmented neutrophils/100 WB C Auto (Bld)on 11-23-2021 Segmented neutrophils/100 WBC (Bld) 55.3 % 47-70 [facility] Work Phone: Serum or plasma albumin archana urement (mass/volume)on 11-23-2021 Albumin [Mass/Vol] 4.3 g/dL 3.2-5.0 [facility] Work Phone: Serum or plasma albumin/glob ulin mass ratioon 11-23-2021 Albumin/Globulin [Mass ratio] 1.2 {ratio} 0.9-2.4 [facility] Work Phone: Serum or plasma calcium archana urement (mass/volume)on 11-23-2021 Calcium [Mass/Vol] 9.3 mg/dL 8.5-10.1 [facility] Work Phone: Serum or plasma cholesterol in HDL measurement (mass/volume)on 11-23-2021 Cholesterol in HDL [Mass/Vol] 52 mg/dL >40 [facility] Work Phone: Comment on above: The drugs N-Acetylcy steine and Metamizole may falsely depress this assay. Reference Range HDL <40 mg/dL Low HDL Cholesterol HDL >or= 60 mg/dL High HDL Cholesterol Serum or plasma cholesterol in VLDL measurement (mass/volume)on 11-23-2021 Cholesterol in VLDL [Mass/Vol] 27 mg/dL 5-40 [facility] Work Phone: Serum or plasma creatinine m easurement (mass/volume)on 11-23-2021 Creatinine [Mass/Vol] 0.64 mg/dL 0.55-1.02 [facility] Work Phone: Comment on above: The validity of the calculated GFR & GFRAA in patients over 70 years has not been determined. Clinical correlation is essential. Serum or plasma low density lipoprotein (LDL) cholesterol measurement (mass/volume)on 11-23-2021 Cholesterol in LDL [Mass/Vol] 161 mg/dL 0-130 [facility] Work Phone: Serum or plasma urea nitroge n measurement (mass/volume)on 08-26-2022 Urea nitrogen [Mass/Vol] 16 mg/dL 7-18 [facility] Work Phone: Serum or plasma uric acid me asurement (mass/volume)on 11-23-2021 Urate [Mass/Vol] 6.2 mg/dL 2.6-6.0 [facility] Work Phone: Comment on above: The drugs N-Acetylcy steine and Metamizole may falsely depress this assay. Thin prep Papanicolaou smear with manual screeningon 11-23-2021 Thin prep Papanicolaou smear with manual screening 30 U/L 15-37 [facility] Work Phone: Thin prep Papanicolaou smear with manual screening 6 5-15 [facility] Work Phone: Thin prep Papanicolaou smear with manual screening 186 U/L 84-246 [facility] Work Phone: Urine blood detectionon 10-30 RBC Ql (U) 250 /ul Negative [facility] Work Phone: Urine clarityon 11-23-2021 Clarity (U) Clear Clear [facility] Work Phone: Urine color determinationon 11-23-2021 Color (U) Yellow Yellow [facility] Work Phone: Urine glucose detectionon Glucose Ql (U) Normal mg/dl Normal [facility] Work Phone: [phone] Urine leukocyte esterase det ection by dipstickon 11-23-2021 Leukocyte esterase Test strip Ql (U) 25 /ul Negative [facility] Work Phone: [phone] Urine pHon 11-23-2021 pH (U) 5.0 [pH] 5.0 - 8.0 [facility] Work Phone: [phone] Urine specific gravity measu rementon 11-23-2021 Specific gravity (U) [Rel density] 1.020 1.002-1.030 [facility] Work Phone: Urobilinogen Auto test strip Ql (U)on 11-23-2021 Urobilinogen Ql (U) Normal mg/dl Normal [facility] Work Phone: Laboratory - Microbiology an d Antimicrobial susceptibilityon 11-13-2021 SARS-CoV-2 (COVID-19) RNA JO ANN+probe Ql (Unsp spec) Negative Not Detect [facility] Work Phone: Comment on above: Normal Reference Ran ge: Not DetectedMethod:(RT-PCR) real-time reverse transcriptase PCRLuminex ALL Instrument*The Food and Drug Administration (FDA) has issued an Emergency Use Authorization (EAU) for the [employer] SARS-CoV-2 Assay for the rapid detection of [...] percentageon 2021 Basophil percentage Not Reportable [facility] Work Phone: Erythrocyte sedimentation ra paul 11-06-2021 ESR (Bld) [Velocity] 10 mm/h 0-30 [facility] Work Phone: Laboratory - Chemistry and C hemistry - challengeon 11-06-2021 Free T4 [Mass/Vol] 0.72 ng/dL 0.76-1.46 [facility] Work Phone: No Panel Informationon 11-06 Anti-Nuclear Antibody Screen Negative Negative [facility] Work Phone: Comment on above: Performed at: [facility] [address] [id number] Director: Dany White PhD, Phone: [phone] [employer] B Antibody Not Reportable [facility] Work Phone: [employer] Antibody Not Reportable [facility] Work Phone: Thyroid Stimulating Hormone (TSH) 1.62 uIU/mL 0.358-3.74 [facility] Work Phone: Serum DNA double strand anti body assay (units/volume)on 11-06-2021 DNA double strand Ab Qn (S) Not Reportable [facility] Work Phone: Serum Nasima-1 antibody assay (u nits/volume)on 11-06-2021 Nasima-1 extractable nuclear Ab Qn (S) Not Reportable [facility] Work Phone: Serum Scl-70 extractable nuc lear antibody assay (units/volume)on 11-06-2021 SCL-70 extractable nuclear Ab Qn (S) Not Reportable [facility] Work Phone: Serum Galdamez extractable nucl ear antibody detectionon 11-06-2021 Galdamez extractable nuclear Ab Ql (S) Not Reportable [facility] Work Phone: Serum cyclic citrullinated p eptide IgG antibody assay (units/volume)on 11-06-2021 Cyclic citrullinated peptide IgG Qn 4 units 0-19 [facility] Work Phone: Comment on above: Negative <20 Weak po sitive 20 - 39 Moderate positive 40 - 59 Strong positive >59Performed at: [facility] [id number] Director: Jacinto Shea MD, Phone: [phone] Serum or plasma C reactive p rotein measurement (mass/volume)on 11-06-2021 CRP [Mass/Vol] mg/L 0.0-3.0 [facility] Work Phone: Comment on above: C-Reactive Protein ( CRP) provides useful information for thediagnosis, therapy and monitoring of inflammatory processesand associated diseases. For the evaluation of Relative Riskfor Cardiovascular Disease, a High Sensitivity CRP (HSCRP)should be ordered. Serum rheumatoid factor dete ctionon 11-06-2021 Rheumatoid factor Ql (S) < 10.0 IU/mL <15 [facility] Work Phone: No Panel Informationon 10-04 POC SARS CoV-2 Antigen Negative [facility] Work Phone: Basophil percentageon 2021 Bilirubin [Mass/Vol] 0.60 mg/dL 0.20-1.00 [facility] Work Phone: Comment on above: For patients on eltr ombopag therapy, use of Dimension [place] TBIL is not recommended. Protein [Mass/Vol] 8.0 g/dL 6.4-8.2 [facility] Work Phone: WBC (Bld) [#/Vol] 7.5 10*3/uL 4.4-11.0 [facility] Work Phone: Blood erythrocytes count (nu mber/volume)on 08-02-2021 RBC (Bld) [#/Vol] 4.87 10*6/uL 4.2-5.[address] [facility] Work Phone: Blood hemoglobin measurement (mass/volume)on 08-02-2021 Hemoglobin (Bld) [Mass/Vol] 14.7 g/dL 12.0-15.0 [facility] Work Phone: Blood platelet mean volumeon 08-02-2021 Platelet mean volume (Bld) [Entitic vol] 10.6 fL 6.2-12.0 [facility] Work Phone: Determination of erythrocyte mean corpuscular volume (MCV)on 08-02-2021 MCV (RBC) [Entitic vol] 86.7 fL 81-99 [facility] Work Phone: Direct bilirubinon 2 Bilirubin.direct [Mass/Vol] 0.17 mg/dL 0.00-0.30 [facility] Work Phone: Hematocrit Auto (Bld) [Volum e fraction]on 08-02-2021 Hematocrit (Bld) [Volume fraction] 42.2 % 37-47 [facility] Work Phone: INR in Blood by Coagulation assayon 08-02-2021 INR Coag (Bld) [Relative time] 1.1 {INR} [facility] Work Phone: [phone] Laboratory - Chemistry and C hemistry - challengeon 08-02-2021 ALP [Catalytic activity/Vol] 55 U/L 45-117 [facility] Work Phone: [phone] ALT [Catalytic activity/Vol] 42 U/L 13-56 [facility] Work Phone: Globulin (S) [Mass/Vol] 3.6 g/dL 2.2-4.2 [facility] Work Phone: [phone] Laboratory - Coagulationon 0 08-02-2021 aPTT Coag (Bld) [Time] 34.3 s 24.1-36.2 [facility] Work Phone: [phone] PT Coag (PPP) [Time] 13.4 s 11.7-14.9 [facility] Work Phone: [phone] Laboratory - Hematology and Cell countson 08-02-2021 Erythrocyte distribution width (RBC) [Entitic vol] 38.4 fL 35.1-43.9 [facility] Work Phone: [phone] Erythrocyte distribution width (RBC) [Ratio] 12.2 % 11.6-14.6 [facility] Work Phone: [phone] MCH (RBC) [Entitic mass] 30.2 pg 27.0-32.0 [facility] Work Phone: MCHC Auto (RBC) [Mass/Vol]on 08-02-2021 MCHC (RBC) [Mass/Vol] 34.8 g/dL 32-36 [facility] [facility] Work Phone: [phone] Platelets bldon 08-02-2021 Platelets (Bld) [#/Vol] 163 10*3/uL 150-450 [facility] Work Phone: [phone] Serum or plasma albumin archana urement (mass/volume)on 08-02-2021 Albumin [Mass/Vol] 4.4 g/dL 3.2-5.0 [facility] Work Phone: [phone] Thin prep Papanicolaou smear with manual screeningon 08-02-2021 Thin prep Papanicolaou smear with manual screening 22 U/L 15-37 [facility] Work Phone: Serum or plasma cortisol zak surement (mass/volume)on 07-28-2021 Cortisol [Mass/Vol] 23.80 ug/dL 3.44-22.45 [facility] Work Phone: Comment on above: Adult (AM) 5.27 - 22 .45 ug/dL Adult (PM) 3.44 - 16.76 ug/dLPlease note revised CORTISOL reference range effective 2019. Laboratory - Chemistry and C hemistry - challengeon 07-25-2021 Free T4 [Mass/Vol] 0.76 ng/dL 0.76-1.46 [facility] Work Phone: No Panel Informationon 07-25 Dehydroepiandrosterone Sulfate 118.0 ug/dL 57.3-279.2 [facility] Work Phone: Free Triiodothyronine (T3) pg/dL 2.8 pg/mL 2.18-3.98 [facility] Work Phone: Reverse Triiodothyronine (T3) 12.6 ng/dL 9.2-24.1 [facility] Work Phone: Comment on above: This test was develo ped and its performance characteristicsdetermined by [employer]. It has not been cleared orapproved by the Food and Drug Administration.Performed at: [facility] Cloud Floor[address] [id number] Director: Dany White PhD, Phone: [phone] at: [facility] Lab[address] [id number] Director: Jacinto Shea MD, Phone: [phone] Thyroid Stimulating Hormone (TSH) 1.29 uIU/mL 0.358-3.74 [facility] Work Phone: Total Triiodothyronine 1.10 ng/mL 0.6-1.81 [facility] Work Phone: Serum or plasma cortisol zak surement (mass/volume)on 07-25-2021 Cortisol [Mass/Vol] 2.80 ug/dL 3.44-22.[address] [facility] Work Phone: Comment on above: Adult (AM) 5.27 - 22 .45 ug/dL Adult (PM) 3.44 - 16.76 ug/dLPlease note revised CORTISOL reference range effective 2019. Laboratory - Microbiology an d Antimicrobial susceptibilityon 03-26-2021 SARS-CoV-2 (COVID-19) RNA JO ANN+probe Ql (Unsp spec) Detected Not Detect [facility] Work Phone: Comment on above: Normal Reference Ran ge: Not DetectedMethod:(RT-PCR) real-time reverse transcriptase PCRLuminex Personal Cell Sciences Instrument*The Food and Drug Administration (FDA) has [...] 162.[address] Librado Ybarra Work Phone: [facility] Work Phone: 01-06-2022 13:46-0400 Body mass index (BMI) [Ratio] 37.4 kg/m2 Dr. Librado Ybarra Work Phone: [facility] Work Phone: 01-06-2022 13:46-0400 Body temperature 97.6 [degF] Dr. Librado Ybarra Work Phone: [facility] Work Phone: 01-06-2022 13:46-0400 Body weight [address] Librado Ybarra Work Phone: [facility] Work Phone: 01-06-2022 13:46-0400 Diastolic blood pressure 109 mm[Hg] Dr. Librado Ybarra Work Phone: [facility] Work Phone: 01-06-2022 13:46-0400 Heart rate 76 /min Dr. Librado Ybarra Work Phone: [facility] Work Phone: 01-06-2022 13:46-0400 Respiratory rate 18 /min Dr. Librado Ybarra Work Phone: [facility] Work Phone: 01-06-2022 13:46-0400 SaO2% (BldA) [Mass fraction] 99 % Dr. Librado Ybarra Work Phone: [facility] Work Phone: 01-06-2022 13:46-0400 Systolic blood pressure 159 mm[Hg] Dr. Librado Ybarra Work Phone: [facility] Work Phone: 10-04-2021 17:24-0400 Body temperature 98.8 [degF] Dr. Librado Ybarra Work Phone: [facility] Work Phone: 10-04-2021 17:24-0400 Diastolic blood pressure 78 mm[Hg] Dr. Librado Ybarra Work Phone: [facility] Work Phone: 10-04-2021 17:24-0400 Heart rate 78 /min Dr. Librado Ybarra Work Phone: [facility] Work Phone: 10-04-2021 17:24-0400 Respiratory rate 14 /min Dr. Librado Ybarra Work Phone: [facility] Work Phone: 10-04-2021 17:24-0400 Systolic blood pressure 120 mm[Hg] Dr. Librado Ybarra Work Phone: [facility] Work Phone: 06-17-2021 10:12-0400 Respiratory rate 16 /min [facility] Work Phone: 06-17-2021 08:31-0400 Body height 162.56 cm [facility] Work Phone: 06-17-2021 08:31-0400 Body mass index (BMI) [Ratio] 35.5 kg/m2 [facility] Work Phone: 06-17-2021 08:31-0400 Body temperature 97.2 [degF] [facility] Work Phone: 06-17-2021 08:31-0400 Body weight 94 kg [facility] Work Phone: 06-17-2021 08:31-0400 Diastolic blood pressure 63 mm[Hg] [facility] Work Phone: 06-17-2021 08:31-0400 Heart rate 82 /min [facility] Work Phone: 06-17-2021 08:31-0400 SaO2% (BldA) [Mass fraction] 95 % [facility] Work Phone: 06-17-2021 08:31-0400 Systolic blood pressure 132 mm[Hg] [facility] Work Phone: 03-30-2021 12:45-0500 Body temperature 99 [degF] [facility] Work Phone: 03-30-2021 12:45-0500 Diastolic blood pressure 84 mm[Hg] [facility] Work Phone: 03-30-2021 12:45-0500 Heart rate 73 /min [facility] Work Phone: 03-30-2021 12:45-0500 Respiratory rate 16 /min [facility] Work Phone: 03-30-2021 12:45-0500 SaO2% (BldA) [Mass fraction] 99 % [facility] Work Phone: 03-30-2021 12:45-0500 Systolic blood pressure 129 mm[Hg] [facility] Work Phone: 03-30-2021 11:16-0500 Body mass index (BMI) [Ratio] 36 kg/m2 [facility] Work Phone: 03-30-2021 11:16-0500 Body weight 95.25 kg [facility] Work Phone: Encounters Encounter Date Encounter Type Care Provider Facility Start: 01-21-2025 End: 01-21-2025 ambulatory [facility] Start: 01-18-2025 Encounter for other preprocedural examination Mony Cisneros [facility] Start: 01-18-2025 ambulatory [facility] Facility: [facility] Start: 01-18-2025 End: 01-18-2025 ambulatory [facility] Facility:[facility] Start: 01-17-2025 ambulatory [facility]: [facility] Start: 12-21-2024 End: 12-21-2024 ambulatory [facility] Start: 12-21-2024 End: 12-21-2024 ambulatory [facility] Facility:[facility] Start: 12-06-2024 ambulatory [facility]: [facility] Start: 10-22-2024 End: 10-22-2024 ambulatory Librado WolffTate Facility:[facility] Start: 10-05-2024 End: 10-05-2024 ambulatory Hali Ruiz [facility] Start: 10-05-2024 End: 10-05-2024 [facility] Start: 09-30-2024 End: 09-30-2024 [facility] Start: 09-29-2024 End: 09-29-2024 ambulatory Hali Atanasov Facility:[facility] Start: 08-31-2024 End: 08-31-2024 ambulatory [facility] Facility:[facility] Start: 08-10-2024 End: 08-10-2024 ambulatory [facility] Facility:[facility] Start: 07-20-2024 End: 07-20-2024 Emergency department patient visit [facility] Facility:[facility] Start: 07-19-2024 End: 07-19-2024 ambulatory [facility] Facility:[facility] Start: 07-13-2024 End: 07-13-2024 ambulatory [facility] Start: 06-16-2024 End: 06-16-2024 ambulatory MELISSAKARAN VERGARA [facility] Start: 06-16-2024 End: 06-16-2024 Subsequent hospital visit by physician Melissa Vergara [employer] Work Phone: [facility] Comment on above: Pre-employment healt h screening examination (Primary Dx) Start: 06-16-2024 End: 06-16-2024 ambulatory [facility] Start: 06-15-2024 End: 06-15-2024 ambulatory [facility] Start: 06-09-2024 ambulatory [facility] Start: 06-03-2024 ambulatory [facility] Start: 05-31-2024 End: 05-31-2024 ambulatory [facility] Start: 05-28-2024 ambulatory [facility] Start: 05-28-2024 Encounter for other preprocedural examination [facility] Start: 05-25-2024 End: 05-25-2024 ambulatory [facility] Facility:[facility] Start: 05-11-2024 ambulatory [facility] Start: 03-10-2024 End: 03-10-2024 ambulatory [facility] Start: 03-04-2024 End: 03-04-2024 ambulatory [facility] Start: 01-06-2022 End: 01-06-2022 Emergency department patient visit Dr. Librado Ybarra Work Phone: [facility] Start: 01-03-2022 End: 01-03-[address] Librado Ybarra Work Phone: [facility] Work Phone: Start: 01-03-2022 End: 01-03-[address] Librado Ybarra Work Phone: [facility] Start: 11-23-[address] [facility] Start: 11-13-[address] Librado kenyon Work Phone: [facility] Start: 11-06-2021 End: 11-06-[address] Librado Ybarra Work Phone: [facility] Start: 10-04-2021 End: 10-04-[address] 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 support worker Off Start: 06-30-2021 End: 06-30-2021 Patient encounter procedure [facility], [facility] Start: 06-17-2021 End: 06-17-2021 Emergency department patient visit [facility] Start: 05-23-2021 End: 05-23-2021 Patient encounter procedure [facility], Specimen Start: 03-30-2021 End: 03-30-2021 Patient encounter procedure [facility] 3 Outp Start: 03-26-2021 Patient encounter procedure [facility], Specimen Procedures Date Procedure Procedure Detail Performing Clinician Start: 06-16-2024 Hepatitis b surf ant ibody hbsab Melissa Vergara [employer] Work Phone: Start: 01-03-2022 Radiologic examinati on of knee Dr. Librado Ybarra Work Phone: Start: 06-30-2021 US scan of thyroid Start: 06-17-2021 X-ray of cervical spine Start: 06-17-2021 Plain X-ray of clavicle Viral antigen assay Dr. Librado Ybarra Work Phone: Plan of Treatment Date Care Activity Detail Author Start: 02-07-2025 ambulatory Ambulatory Facility:[facility] Start: 11-30-2023 COVID-19 (2023- 5 season) COVID-19 (2023- season) [facility] Start: 11-30-2023 FLU (#1) FLU (#1) [facility] Start: 01-06-2022 Referral to service [facility] Work Phone: Start: 01-06-2022 End: 01-06-2022 Suicide precautions [facility] Work Phone: Start: 12-27-2002 Hepatitis B (1 of 3 - 19+ 3-dose series) Hepatitis B (1 of 3 - 19+ 3-dose series) [facility] Start: 1999 MenB (1 of 2 - MenB 2-Dose Series Bexsero) MenB (1 of 2 - MenB 2-Dose Series Bexsero) [facility] Start: 12-27-1990 Tetanus Diphtheria a nd Pertussis Vaccines (1 - Tdap) Tetanus Diphtheria and Pertussis Vaccines (1 - Tdap) [facility] Start: 12-27-1984 MMR (1 of 1 - Standa rd series) MMR (1 of 1 - Standard series) [facility] Patient Education [facility] Work Phone: Patient referral [facility] Work Phone: End: 06-16-2024 Quantiferon TB Gold [facility] Work Phone: Comment on above: For lab collect this frequency defaults to the next routine lab draw time. Routine times: 0600; 1100; 1400; 1900; 2200 for 1 Occurrences starting 06/16/2024 until 06/16/2024 Immunizations Immunization Date Immunization Notes Care Provider Patric hawkins 10-11-2021 measles, mumps and rubella virus vaccine Dr. Librado Ybarra Work Phone: [facility] Work Phone: 08-30-2021 measles, mumps and rubella virus vaccine Dr. Librado Ybarra Work Phone: [facility] Work Phone: 07-27-2020 Covid (Pfizer) Dr. Librado knox Work Phone: [facility] Work Phone: 07-02-2020 Covid (Pfizer) Dr. Librado knox Work Phone: [facility] Work Phone: 02-16-2020 influenza, seasonal, injectable Dr. Librado Ybarra Work Phone: [facility] Work Phone: 09-06-2019 tetanus toxoid, redu mukul diphtheria toxoid, and acellular pertussis vaccine, adsorbed [facility] Work Phone: 12-24-2018 influenza, seasonal, injectable [facility] Work Phone: 04-01-2018 tetanus toxoid, redu mukul diphtheria toxoid, and acellular pertussis vaccine, adsorbed [facility] Work Phone: 01-12-2018 influenza, seasonal, injectable [facility] Work Phone: 02-06-2017 influenza, seasonal, injectable [facility] Work Phone: 02-15-2016 influenza, seasonal, injectable [facility] Work Phone: 12-29-2014 influenza, seasonal, injectable [facility] Work Phone: 12-29-2013 influenza, seasonal, injectable [facility] Work Phone: 03-08-2013 Influenza virus vaccine [facility] Work Phone: 03-08-2013 tetanus toxoid, redu mukul diphtheria toxoid, and acellular pertussis vaccine, adsorbed [facility] Work Phone: 11-19-1996 measles, mumps and rubella virus vaccine Dr. Librado Ybarra Work Phone: [facility] Work Phone: Payers Date Payer Category Payer Unknown [employer] [id number] 2023 Self-pay [id number] 2023 Unknown [id number] 2016 Unknown [id number] 1985 Unknown [id number] [id number] 1983 Unknown [id number] 2.16840.1.409349.3.579.2.651 1983 Unknown [id number] 2.16840.1.303128.3.579.2.651 1983 Unknown [id number] 2.840.1.352897.3.579.2.479 Unknown [id number] Unknown [id number] Unknown [id number] Unknown [id number] [facility] P[employer]AGE PL[employer] 0 [id number] Unknown [id number] Unknown [id number] 2.840.1.414892.3.579.2.462 Unknown [id number] 2.840.1.107982.3.579.2.462 Unknown [id number] 2.840.1.560028.3.579.2.462 Unknown [id number] 2.840.1.564448.3.579.2.462 Unknown [id number] 2.840.1.253505.3.579.2.462 Unknown [id number] 2.840.1.916121.3.579.2.462 Unknown [id number] 2.16840.1.911850.3.579.2.462 Unknown [id number] 2.16840.1.434663.3.579.2.462 Unknown [id number] 2.16840.1.936247.3.579.2.462 Unknown [id number] 2.16.840.1.000193.3.579.2.462 Unknown [id number] 2.16840.1.706958.3.579.2.462 Unknown [id number] 2.16.840.1.042313.3.579.2.462 Unknown [id number] 2.16.840.1.810982.3.579.2.462 Unknown [id number] 2.16.840.1.490060.3.579.2.462 Unknown [id number] 2.16.840.1.610846.3.579.2.462 Unknown [id number] 2.16.840.1.109450.3.579.2.462 Unknown [id number] 2.16.840.1.161426.3.579.2.462 Unknown [id number] 2.16.840.1.835904.3.579.2.462 Unknown [id number] 2.16.840.1.449864.3.579.2.462 Unknown [id number] 2.16.840.1.413574.3.579.2.462 Unknown [id number] 2.16.840.1.557215.3.579.2.462 Unknown [id number] 2.16.840.1.094410.3.579.2.462 Unknown [id number] 2.16.840.1.842689.3.579.2.462 Unknown [id number] 2.16.840.1.234395.3.579.2.462 Unknown [id number] 2.16.840.1.993936.3.579.2.462 Unknown [id number] 2.16.840.1.969108.3.579.2.462 Social History Date Type Detail Facility [facility] Work Phone: Start: 06-17-2021 End: 01-06-2022 Tobacco smoking status NHIS Unknown if ever smoked [facility] Work Phone: Start: 09-17-2019 None [facility] Work Phone: Start: 02-15-2019 [facility] Work Phone: Start: 1985 Sex Assigned At Female [facility] Work Phone: Start: 1985 Sex assigned at Not on file A [facility] Gender identity Not on file [facility] Goals Date Patient Goal Desired Activity /State Mental Status Date Assessment Result Facility 03-30-2021 Cognitive function Awake;Alert;A ppropriate;Fol lows Commands [facility] Work Phone: Clinical Note 01-17-2025 Note Date & Type Note Facility 01-17-2025 Note [facility] Medical Records Department [address] [place] [address] History Physical Exam 01/17/25 1736 MR#: [id number] Acct: [id number] Name: BEATRICE BORREGO Rep #: [id number] : 1985 39 From: Mony Cisneros MD PCP: Dr. Librado Ybarra, DO Status:[facility] Location: [place] [address] History and Physical ntake Vital Signs 10/23/2515:02 11/15/2508:00 12/06/2506:08 12/21/2509:37 Height 5 ft 4 in 5 ft 4 in 5 ft 4 in 5 ft 4 in Weight: 209 lb 6 oz BMI 35.9 BP 127/86 H Intake Visit Reasons: hysterectomy pre-op Hearing Officer Required: No Is patient in pain?: No [...] mcg (2,000 unit) capsule (Vitamin D3) omega 1-ats-uxe-fish oil 1,200 mg 1 cap PO DAILY [...] 2 current occupational status: employed current occupation: [employer] pets and animals: Yes pets and animals: [...] The patient jones (more content not included)... [facility] Clinical Note 05-25-2024 Note Date & Type Note Facility 05-25-2024 Note [facility] Medical Records Department [address] [place] [address] History Physical Exam 05/25/24 1157 MR#: [id number] Acct: [id number] Name: BEATRICE BORREGO Rep #: [id number] : 1985 38 From: Erick Friend DO PCP: Dr. Librado Ybarra, DO Status:[facility] Location: [place] [address] HPI - General General Date of Admission: 05/25/24 Date of Service: 05/25/24 Chief Complaint: family history of colon cancer and heartburn HPI Narrative BEATRICE BORREGO, is a 38 F who presents to the office today for establishment with [facility]. Pt is here today to get [...] was without abnormalities. 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 [facility] Progress note 10-17-2020 Note Date & Type Note Facility 10-17-2020 Note HNO ID: [id number] Author: Diana Cantor Service: ? Author Type: ? Type: [...] Diana Cantor October 17, 2020 1:37 PM [facility] Clinical Note 10-17-2020 Note Date & Type Note Facility 10-17-2020 Note Patient Outreach (SANDY TNAV) BEATRICE BORREGO ([id number]) 1985 F Date Time Provider Department 10/17/20 [...] Encounter Status:Closed by DIANA MEDEL on 10/17/20 [facility] Evaluation note Note Date & Type Note Facility Evaluation note No assessment information availa ble [facility] Work Phone: Evaluation note Note Date & Type Note Facility Evaluation note Diagnosis Onset Date Acute bronchitis, unspecified acute Encounter for screening labo ratory testing for COVID-19 virus acute [facility] Work Phone: Evaluation note Note Date & Type Note Facility Evaluation note Diagnosis Pre-employment health screening examination- Primary Health examination of defined subpopulation documented in this encounter [facility] Summary Purpose Family History No Family History Records Found Relationship Condition Age at Onset Recorded Date/T naldo mother Hypertension Unknown High blood cholesterol Unknown sister Disorder of thyroid Unknown Malignant neoplasm Unknown Advance Directives No Advanced Directives Records Found Advance Directive Response Recorded Date/ Time Advance Directives No October 25 3:18pm Living Will No June 17, 2021 8:39am Power of [employer] No June 17 8:39am Advance Directive Response Recorded Date/ Time Advance Directives No October 25 3:18pm Living Will No January 06 2:01pm Power of [employer] No January 06 022 2:01pm Chief Complaint [...] section and content) DATE CREATED AUTHOR 05/23/2021 [facility] DATE CREATED AUTHOR AUTHOR'S ORGANIZ ATION 03/11/2024 [facility] DATE CREATED AUTHOR AUTHOR'S ORGANIZ ATION [facility]/01/2024 [facility] DATE CREATED AUTHOR AUTHOR'S ORGANIZ ATION 06/12/2024 [facility] DATE CREATED AUTHOR AUTHOR'S ORGANIZ ATION 06/22/2024 [facility] DATE CREATED AUTHOR AUTHOR'S ORGANIZ ATION 01/23/2025 [facility] FOR RECORDS PERTAINING TO PATIENTS WHO ARE [...] BE BASED ON THE PRIMARY CLINICAL RECORDS. [employer] provides no warranty or guarantee of the accuracy or completeness of information in this document.
[2025-01-25] MEDS: 0.9% Saline Lock 10 ML Syringe IV ×2 (04:52→05:05)
[2025-01-25 05:17] LABS: Hematocrit 26.7 % (37-47); Hemoglobin 9.2 g/dL (12.0-15.0); Immature Granulocytes Count 0.070 X10^3/uL (0.0-0.0); Mean Corp Hgb Conc 34.5 g/dL (32-36); Mean Corpuscular Volume 85.9 fL (81-99); Mean Platelet Vol. 10.3 fl (6.2-12.0); NRBC Flagged by Analyzer 0 % (0-5); Platelet Count 212 K/mm3 (150-450); RBC Distribution Width CV 12.6 % (11.6-14.6); RBC Distribution Width SD 38.3 fl (35.1-43.9); Red Blood Count 3.11 M/mm3 (4.2-5.4); White Blood Count 11.1 K/mm3 (4.4-11.0)
[2025-01-25] MEDS: Lactated Ringers 500 ML 999 ML IV (08:15)
--- NOTE | 2025-01-25 08:23 | PCM.HP.OB ---
HPI - General General Date of Admission: 01/25/25 HPI Narrative KALA ONEILL, is a 39 F who presents with fever and lower abdominal pain 7 days postop from [facility]. Upon evaluation in the ER she was found to have a temp of 99.6 and was anemic, CT scan showed a postoperative hematoma in the pelvis. [facility] Medical History Hyperplasia of endometrium determined by biopsy Frequency of urination Back pain Colonoscopy planned Former smoker History of Holter monitoring Carpal tunnel syndrome Flu-like symptoms Vapes nicotine containing substance CPAP (continuous positive airway pressure) dependence Hypersomnia Major depressive disorder Encounter for screening laboratory testing for COVID-19 virus Acute bronchitis, unspecified Wears contact lenses Wears glasses Depression Anxiety Gastric reflux History of echocardiogram Cardiology follow-up encounter Hx of pilonidal cyst delivery delivered Home Medications ?Medication ?Instructions ?Recorded ?Last Taken ?Type Lactobacillus acidophilus 250 500 mmu cells PO DAILY 05/20/24 01/04/25 History million cell capsule (Probiotic Acidophilus) cholecalciferol (vitamin D3) 50 50 mcg PO DAILY 05/20/24 01/04/25 History mcg (2,000 unit) capsule (Vitamin D3) omega 1-qxe-pao-fish oil 1,200 mg 1 cap PO DAILY 05/20/24 01/04/25 History (144 mg-216 mg) capsule (Fish Oil) ibuprofen 200 mg tablet (Advil) 800 mg PO Q6H PRN pain 07/20/24 07/20/24 History cyclobenzaprine 10 mg tablet 10 mg PO TID PRN muscle spasm #30 07/27/24 Unknown Rx tabs omeprazole 40 mg capsule,delayed 40 mg PO BID 90 days #180 caps 08/11/24 01/18/25 05:30 Rx release ondansetron 4 mg disintegrating 4 mg PO Q8H PRN nausea and 09/30/24 Unknown Rx tablet vomiting #30 tabs mecobalamin (vitamin B12) 500 mcg 2,500 mcg PO DAILY 10/22/24 01/04/25 History chewable tablet bupropion HCl 150 mg 24 hr tablet, 150 mg PO QAM #90 TABLETS 12/06/24 01/18/25 05:30 Rx extended release escitalopram oxalate 10 mg tablet 15 mg (1.5 x 10 mg) PO QHS 90 days 12/06/24 01/17/25 20:30 Rx #135 tabs lorazepam 0.5 mg tablet 0.5 mg PO DAILY PRN anxiety #30 12/06/24 01/18/25 05:30 Rx tabs naproxen 500 mg tablet 500 mg PO BID PRN PRN Pain #30 tabs 01/21/25 Unknown Rx oxycodone-acetaminophen 5 mg-325 1 tab PO Q4H PRN pain 7 days #20 01/21/25 Unknown Rx mg tablet (Percocet) tabs Allergy/AdvReac Type Severity Reaction Status Date / Time citalopram hydrobromide Allergy Hives Verified 01/25/25 00:06 (From Celexa) Penicillins (PCN) Allergy Hives Verified 01/25/25 00:06 tetanus immune globulin Allergy Hives Verified 01/25/25 00:06 liraglutide (From Victoza) AdvReac Nausea/Vom/ Verified 01/25/25 00:06 Diarrhea morphine AdvReac Itching Verified 01/25/25 00:06 Family History Mother Hypertension High cholesterol Alcoholism Arthritis Depression Sister Thyroid cancer Depression Colon cancer Arthritis Autoimmune disorder Thyroid disorder Father Alcoholism Anxiety Depression Myocardial infarction Psychiatric care Grandfather Lung cancer Aunt Esophageal cancer Surgical History Status post bilateral salpingectomy S/P laparoscopic assisted vaginal hysterectomy (LAVH) H/O esophagogastroduodenoscopy H/O dilation and curettage History of hysteroscopy Previous section H/O repair of right rotator cuff History of appendectomy Hx of cholecystectomy History of tonsillectomy Social History household members: spouse and children housing: house number of children: 2 current occupational status: employed current occupation: [employer] pets and animals: Yes pets and animals: dog(s) Smoking Status: Former smoker alcohol intake: current substance use type: does not use what type of physical activity do you participate in: walking and weight training frequency: 3-4 times per week do you feel safe at home: Yes additional social history: Elias History 2 Elective abortions Hx Para 2 Spontaneous abortions Hx # Term Pregnancies Ectopic pregnancies Hx # Pregnancies Multiple births # of living children 2 Past Pregnancies Del. Date Name GA/Weeks Outcome Route Bth Weight Infant Gen Labor Lgth Anesthesia Del Locatn Provider FOB Unknown Daxton 2018 Unknown Sue 2019 ROS Constitutional Constitutional: Reports systems reviewed and no addt'l complaints, except as documented; Denies as per HPI Eyes Eyes: Reports systems reviewed and no addt'l complaints, except as documented ENT HEENT: Reports systems reviewed and no addt'l complaints, except as documented Respiratory/Chest Respiratory/Chest: Reports systems reviewed and no addt'l complaints, except as documented Gastrointestinal Gastrointestinal: Reports systems reviewed and no addt'l complaints, except as documented and as per HPI Genitourinary Genitourinary: Reports as per HPI Musculoskeletal Musculoskeletal: Reports systems reviewed and no addt'l complaints, except as documented Neurologic Neurologic: Reports systems reviewed and no addt'l complaints, except as documented Psychiatric Psychiatric: Reports systems reviewed and no addt'l complaints, except as documented Endocrine Endocrinology: Reports systems reviewed and no addt'l complaints, except as documented Hematologic/Lymphatic Hematologic/Lymphatic: Reports systems reviewed and no addt'l complaints, except as documented Vital Signs Vital Signs Vital Signs: 01/25/25 00:00 01/25/25 00:06 01/25/25 00:07 Temperature 99.8 F H 99.8 F H Temperature Source Oral Oral Pulse Rate 100 100 Respiratory Rate 22 H 22 H Respiratory Effort Normal Respiratory Depth Respiratory Pattern Normal Blood Pressure 146/69 H 146/69 H Blood Pressure Mean 94 94 Blood Pressure Source Blood Pressure Position Blood Pressure Location Pulse Ox 95 95 Oxygen Delivery Method Room Air Room Air 01/25/25 01:06 01/25/25 02:00 01/25/25 02:58 Temperature 99.8 F H 99.8 F H 99.1 F Temperature Source Oral Oral Pulse Rate 95 102 H 97 Respiratory Rate 21 H 20 H 18 Respiratory Effort Respiratory Depth Respiratory Pattern Blood Pressure 136/74 H 136/69 H 136/96 H Blood Pressure Mean 94 91 109 Blood Pressure Source Blood Pressure Position Blood Pressure Location Pulse Ox 100 98 98 Oxygen Delivery Method Room Air Room Air 01/25/25 03:00 01/25/25 04:57 01/25/25 05:01 Temperature 99.1 F 99.0 F Temperature Source Oral Temporal Pulse Rate 97 98 Respiratory Rate 16 16 Respiratory Effort Normal Respiratory Depth Normal Respiratory Pattern Normal Blood Pressure 144/75 H 125/74 H Blood Pressure Mean 98 91 Blood Pressure Source Monitor Blood Pressure Position Semi-Fowlers Blood Pressure Location Right Arm Pulse Ox 98 99 99 Oxygen Delivery Method Room Air Room Air Room Air Weight Weight: 207 lb 10.807 oz Body Mass Index (BMI) 35.6 Physical Exam Const alert, oriented x3 and no apparent distress HEENT normocephalic Head and Scalp: atraumatic Eyes EOMs intact bilaterally and conjunctivae normal Neck full ROM, no lymphadenopathy and supple General: trachea midline Lymph Lymphatic: no lymphadenopathy noted Resp normal respiratory effort GI soft to palpation, non-distended and no masses GI Narrative: Tender generalized, ecchymoses over left lower quadrant by the previous incision. No masses palpated near incisions Extremity normal to inspection Skin no rashes or lesions noted Neuro moves all extremities Psych mental status grossly normal Labs Labs Labs: Blood Type O POSITIVE Antibody Screen NEGATIVE Hct, (37-47) 26.7 % L Hgb, (12.0-15.0) 9.2 g/dL L Obstetrics Ultrasound VZV IgG Antibody, (Immune >1.09) 2.68 index Rubella IgG Antibody 57.8 IU/mL Hep Bs Antigen, (Nonreactive) Nonreactive Hepatitis C Antibody, (Nonreactive) Nonreactive Hepatitis C Ab (EIA), (0.0-0.9) <0.1 s/co ratio Chlamydia DNA (JO ANN), (Negative) Negative N.gonorrhoeae DNA (JO ANN), (Negative) Negative HIV 1&2 Antibody, (Nonreactive) Nonreactive Glucose 1 Hr 50 gm, (70-140) 126 mg/dL Gest Glucose Tolerance MG/DL Rhogam given: No Miscellaneous Test Assessment & Plan (1) Postoperative hematoma: (2) Pyrexia: (3) S/P laparoscopic assisted vaginal hysterectomy (LAVH): COMMENT: sm fibroid aub pelvic pain PLAN: Plan admit for monitoring, serial Hg stable. called radiology and discussed imaging- did not recommend IR drainage recommend expectant management, did not have appearance of infection/abscess at this time.
[2025-01-25] MEDS: Lactated Ringers 1,000 ML 125 ML IV (09:01)
--- NOTE | 2025-01-25 14:41 | PCM.PN.OB ---
Subjective Subjective follow up pain controlled with pain medicine, no nausea or emesis, patient reports feeling flushed but temp 98-99. passing some gas tolerating po Objective Data Objective Data Vital Signs: Vital Signs Temp Pulse Resp BP Pulse Ox O2 Del Method 98.7 F 83 18 133/73 H 96 Room Air 01/25/25 13:07 01/25/25 13:07 01/25/25 13:07 01/25/25 13:07 01/25/25 13:07 01/25/25 13:07 Oxygen Delivery Method Room Air Weight: 207 lb 10.807 oz Body Mass Index (BMI) 35.6 Intake & Output: Intake and Output for Last 24 Hours 01/23/25 01/24/25 01/25/25 23:59 23:59 23:59 Intake Total 2300 / 2300 Balance 2300 / 2300 Lab / Micro Data 01/25/25 05:03 01/25/25 01:09 Labs: Laboratory Results - last 24 hr 01/25/25 01:09: WBC 12.0 H, RBC 3.10 L, Hgb 9.5 L, Hct 26.5 L, MCV 85.5, MCH 30.6, MCHC 35.8, RDW Std Deviation 37.8, RDW Coeff of Tania 12.6, Plt Count 207, MPV 10.2, Immature Gran % (Auto) 0.800, Neut % (Auto) 72.2 H, Lymph % (Auto) 14.8 L, Braxton % (Auto) 5.8, Eos % (Auto) 6.1 H, Baso % (Auto) 0.3, Absolute Neuts (auto) 8.7 H, Absolute Lymphs (auto) 1.78, Nucleated RBC % 0, PT 14.0, INR 1.1, APTT 32.0, Sodium 135, Potassium 3.8, Chloride 102, Carbon Dioxide 24.6, Anion Gap 9, BUN 12, Creatinine 0.63 L, Estim Creat Clear Calc 131.83, Est GFR (MDRD) Non-Af 114, BUN/Creatinine Ratio 19.8, Glucose 112 H, Calcium 9.0, Total Bilirubin 1.07, Direct Bilirubin 0.40 H, AST 45 H, ALT 58 H, Alkaline Phosphatase 64, Total Protein 6.7, Albumin 4.0, Globulin 2.7, Lipase 16 01/25/25 01:47: Urine Color Yellow, Urine Clarity Clear, Urine pH 8.0, Ur Specific Flora 1.010, Urine Protein 15 H, Urine Glucose (UA) Normal, Urine Ketones Negative, Urine Occult Blood Negative, Urine Nitrite Negative, Urine Bilirubin Negative, Urine Urobilinogen Normal, Ur Leukocyte Esterase Negative, Urine RBC 0-5 SEEN, Urine WBC 0-5 SEEN, Ur Squamous Epith Cells 0-5 SEEN, Urine Bacteria RARE, Urine Mucus 0 SEEN 01/25/25 05:03: WBC 11.1 H, RBC 3.11 L, Hgb 9.2 L, Hct 26.7 L, MCV 85.9, MCH 29.6, MCHC 34.5, RDW Std Deviation 38.3, RDW Coeff of Tania 12.6, Plt Count 212, MPV 10.3, Immature Gran % (Auto) 0.600, Neut % (Auto) 72.6 H, Lymph % (Auto) 15.7 L, Braxton % (Auto) 5.1, Eos % (Auto) 5.7 H, Baso % (Auto) 0.3, Absolute Neuts (auto) 8.1 H, Absolute Lymphs (auto) 1.75, Nucleated RBC % 0 Micro: Microbiology 01/25/25 01:48 Mucosa - Nose SARS-CoV-2, Influenza & RSV (PCR) - Final Radiography Diagnostic Testing: Radiology Impression Chest/Abdomen/Pelvis CTA 01/25/25 01:30 IMPRESSION: Recent hysterectomy. Acute hematoma is noted in the surgical bed measuring 7.5 x 4.[address] evidence of active bleeding during the time of the exam. Mild amount of surrounding free acute hemorrhagic products in the pelvis. Prior appendectomy. Prior cholecystectomy. Mild edema of the lower aspect of the anterior abdominal wall, probably benign finding secondary to recent intervention. [facility] Assessment & Plan (1) S/P laparoscopic assisted vaginal hysterectomy (LAVH): COMMENT: sm fibroid aub pelvic pain (2) Postoperative hematoma: COMMENT: discussed with radiology did not recommend drainage at this time, reviewed with patient signs/symptoms of infection vs hematoma dissolving. PLAN: Plan stable for discharge at this time, close interval follow up planned for . reviewed patient precautions.
--- NOTE | 2025-01-25 14:52 | CASEMGMT ---
Dx:fever LACE:1 6-Clicks:24 Medical record reviewed and patient evaluated for identification of discharge planning needs. Based on this review, at this time criteria are not present to indicate a need for discharge planning. Will remain available to assist with discharge planning needs as identified or requested.
== END 2025-01-25 15:50 | disposition home or self-care (01) ==
LOC: ED 02:57 → MS3 08:29
PROVIDERS: Admitting Provider Obstetrics & Gynecology; Emergency Provider Emergency Medicine; PCP Family Medicine; Visit Provider Obstetrics & Gynecology
DX: N99.840 Postprocedural hematoma of a genitourinary system organ or structure following a genitourinary system procedure (principal); D64.9 Anemia, unspecified; F32.A Depression, unspecified; F41.9 Anxiety disorder, unspecified; S30.11XA Contusion of abdominal wall, initial encounter; R50.9 Fever, unspecified; Z87.891 Personal history of nicotine dependence; Z90.710 Acquired absence of both cervix and uterus; Z81.8 Family history of other mental and behavioral disorders; Z90.49 Acquired absence of other specified parts of digestive tract; Y83.8 Other surgical procedures as the cause of abnormal reaction of the patient, or of later complication, without mention of misadventure at the time of the procedure
CPT/HCPCS: 36415; 71275; 74174; 80048; 80076; 81001; 83690; 85025; 85610; 85730; 87631; 96361; 96374; 96375; 99221; 99284; Q9967; A4216; G0378; J2405

== ENCOUNTER → 2025-01-27 | Outpatient (CLI) | payer OTHER, SELFPAY ==
--- NOTE | 2025-01-27 12:34 | US_ITS ---
PROCEDURE: PELVIC W/ TRANSVAGINAL REASON FOR EXAM: POSTOPERATIVE HEMATOMA TECHNIQUE: Procedure Code: [id number] Modality: US Procedure: PELVIC W/ TRANSVAGINAL COMPARISON: Prior CT scan dated January 25, 2025. FINDINGS: Measurements: Uterus: The patient is status post hysterectomy. Right Ovary: 2.5 cm x 2.9 cm x 1.7 cm with a volume of 6.7 mL. Left Ovary: 4.5 cm x 2.8 cm x 2.1 cm with a volume of 14.1 mL. TRANSABDOMINAL: Uterus: Status post hysterectomy. Right ovary: Normal size and echotexture. Left ovary: Normal size and echotexture. Other: There is a 10.2 cm 6.5 cm 3.9 cm complex cystic structure in the midline adjacent to the left adnexa. This is in keeping with the CT findings of pelvic hematoma. Transvaginal sonography was performed as transabdominal imaging did not explain the patient's presenting symptoms. TRANSVAGINAL: Right ovary: Normal size and echotexture. Left ovary: Normal size and echotexture. Other adnexal findings: 10.2 cm 6.5 cm 3.9 cm complex cystic structure adjacent to the left adnexa suggestive of hematoma. Cul-de-sac: No free intraperitoneal fluid identified. Tenderness: No tenderness US/Pelvic w/ Transvaginal IMPRESSION: Findings in keeping with a 10.2 cm 6.5 cm 3.9 cm hematoma in the left adnexal r egion. Reading Location: [id number]
--- OUTSIDE RECORDS SUMMARY | 2025-01-27 13:01 | XMS RPT_ITS | CCD ---
Author Organization [facility] Care Team Providers Care Manager Surgical Name Role Phone Dr. Librado Ybarra Primary Care Provider [phone] Librado Ybarra Referring Provider Faith BANERJEE, LAVONNE Blanc Attending Provider YUMI [...] ERNESTO Attending Unavailable Unavailable Primary Care Provider UnavailMELISSA Laura Referring Unavailable MELISSA VERGARA Attending Unavailable Librado Ybarra Primary Care Unavailable Librado Ybarra Referring Unavailable Mony Cisneros Attending Unavailable Librado Ybarra Primary Care Unavailable Librado Ybarra Referring Unavailable Mony Cisneros Attending Unavailable Hali Ruiz Attending Unavailable Librado Ybarra Referring Unavailable Librado Ybarra Primary Care Unavailable Librado Ybarra Referring Unavailable Nik Clark Attending Unavailable Librado Ybarra Primary Care Unavailable Mony Cisneros Attending Unavailable Librado Ybarra Primary Care Unavailable Lorraine Law Admitting UnavailLorraine Camacho Consulting UnavailHali Munguia Referring Unavailable Hali Riuz Attending Unavailable Librado Ybarra Primary Care Unavailable Hali Ruiz Referring Unavailable Hali Ruiz Attending Unavailable Librado Ybarra Primary Care Unavailable Librado Ybarra Attending Unavailable Tate, Librado Referring Unavailable Tate, Librado Primary Care Unavailable AtanasHali ferro Referring Unavailable Tate, Librado Primary Care Unavailable AtanasHali feror Attending Unavailable Cottrell, Tc Attending Unavailable Tate, Librado Primary Care Unavailable Tate, Librado Primary Care Unavailable MarcanthonyMony Referring Unavailable MarcanthonyMony Consulting Unavailable MarcanthonyMony Attending Unavailable Tate, Librado Referring Unavailable Tate, Librado Primary Care Unavailable MarcanthonyMony Attending Unavailable Tate, Librado Primary Care Unavailable Raphael Kidd Attending Unavailable Tate, Librado Referring Unavailable Marcanthony, Mony Attending Unavailable Tate, Librado Primary Care Unavailable SeeRaphael whittaker Attending Unavailable Tate, Librado Primary Care Unavailable Tate, Librado Primary Care Unavailable MarcanthonyDidieron Referring Unavailable Marcanthony, Mony Attending Unavailable Tate, Librado Primary Care Unavailable Marcanthony, Mony Referring Unavailable Marcanthony, Mony Attending Unavailable Tate, Librado Primary Care Unavailable Lorraine Law Admitting Unavailabl e Lorraine Law Attending Unavailabl e Tate, Librado Primary Care Unavailable Spenser Eldridge Attending Unavailable Tate, Librado Attending Unavailable Tate, Librado Referring Unavailable Tate, Librado Primary Care Unavailable MarcanthonyMony Attending Unavailable Tate, Librado Primary Care Unavailable Hali Ruiz Attending Unavailable ChrisnasHali ferro Referring Unavailable Tate, Librado Primary Care Unavailable AtanasHali ferro Attending Unavailable Tate, Librado Referring Unavailable Tate, Librado Primary Care Unavailable Tate, Librado Referring Unavailable Tate, Librado Primary Care Unavailable Friend, Erick Attending Unavailable Raphael Kidd Attending Unavailable Tate, Librado Primary Care Unavailable AtanasHali ferro Attending Unavailable Tate, Librado Referring Unavailable Tate, Librado Primary Care Unavailable Tate, Librado Primary Care Unavailable MarcanthonyDidieron Referring Unavailable Marcanthony, Mony Consulting Unavailable MarcanthonyMony Attending Unavailable Tate, Librado Referring Unavailable Tate, Librado Primary Care Unavailable Friend, Erick Consulting Unavailable Friend, Erick Attending Unavailable Allergies Allergy Classification Reported Allergen(s) Allergy Type Date of Onset Reaction(s) Facility (10 sources) Citalopram; Translations: [citalopram hydrobromide] Drug Allergy 03-20-202 2 [facility] Repository (9 sources) liraglutide Drug Allergy 2 Nausea/Vom/Diar reyna [facility] Work Phone: (9 sources) Morphine Drug Allergy 2 Itching [facility] Work Phone: (10 sources) Penicillins; Translations: [Penicillins] Allergy to substance 2 [facility] Repository (9 sources) Tetanus immune globulin Drug Allergy 2 [facility] Work Phone: (1 source) liraglutide Drug Allergy 5 [facility] Repository (1 source) Morphine Drug Allergy 5 [facility] Repository (1 source) Tetanus immune globulin Drug Allergy 5 [facility] Repository Medications Current Medications Medication Drug [...] 18, 2018 12:30pm 21 day ethinyl estradiol 0.086763 mg/hr / etonogestrel 0.005 mg/hr vaginal system [...] 5 MG PO EVERY 6 HOURS NEEDED 25 10September 17, 2019 September 24, 2019 12:02am Start: [...] reflux disease without esophagitis] Onset: 10-11-2024 Chronic Fever of unknown origin (2 sources) Fever, unspecified; Translations: [Fever, unspecified] Onset: 01-25-2025 Episodic Headache; including migraine (9 sources) Headache; Translations: [...] mammogram for malignant neoplasm of breast] Onset: 01-25-2025 Episodic Other upper respiratory infections (9 sources) Acute upper respiratory infection; Translations: [Acute upper respiratory infection, unspecified] Episodic Residual codes; unclassified (1 source) Hypersomnia, unspecified; Translations: [Hypersomnia, unspecified] Onset: 12-07-2024 Chronic Residual codes; unclassified (9 sources) Gestation period, 37 weeks; Translations: [37 weeks gestation of ] Episodic Residual codes; unclassified (2 sources) Acquired absence of both cervix and uterus; Translations: [Acquired absence of both cervix and uterus] Onset: 01-25-2025 Episodic Residual codes; unclassified (1 source) Acquired [...] Test Name Value Interpretation Reference Range Facility Basic Metabolic Profile (BMP )on 01-25-2025 BUN/CRE 19.8 RATIO Normal 10-20 [facility] Comment on above: Performed By: #### L 7400.0280 #### [facility] [address] [place], [address] Calcium [Mass/Vol] 9.0 mg/dL Normal 7.6-11.0 [facility] Comment on above: Performed By: #### L 7400.0280 #### [facility] [address] [place], [address] Chloride [Moles/Vol] 102 mmol/L Normal 98-108 [facility] Comment on above: Performed By: #### L 7400.0280 #### [facility] [address] [place], [address] CO2 [Moles/Vol] 24.6 mmol/L Normal 21.0-32.0 [facility] Comment on above: Performed By: #### L 7400.0280 #### [facility] [address] [place], [address] Creatinine [Mass/Vol] 0.63 mg/dL Low 0.70-1.[address] [facility] Comment on above: Performed By: #### L 7400.0280 #### [facility] [address] [place], [address] ECRCL 131.83 ml/min Normal 50-250 [facility] Comment on above: Performed By: #### L 7400.0280 #### [facility] [address] [place], [address] GAP 9 Normal 5-15 [facility] Comment on above: Performed By: #### L 7400.0280 #### [facility] [address] [place], [address] GFR/1.73 sq M.predicted among non-blacks MDRD (S/P/Bld) [Vol rate/Area] 114 mL/min/{1.73_m2} Normal >60 [facility] Comment on above: Result Comment: mL/m in/1.73m2 CKD-EPI Creatinine Equation (2020) Performed By: #### L 7400.0280 #### [facility] [address] [place], [address] Glucose [Mass/Vol] 112 mg/dL High 70-99 [facility] Comment on above: Performed By: #### L 7400.0280 #### [facility] [address] [place], [address] Potassium [Moles/Vol] 3.8 mmol/L Normal 3.3-5.[address] [facility] Comment on above: Performed By: #### L 7400.0280 #### [facility] [address] [place], [address] Sodium [Moles/Vol] 135 mmol/L Normal 133-145 [facility] Comment on above: Performed By: #### L 7400.0280 #### [facility] [address] [place], [address] Urea nitrogen [Mass/Vol] 12 mg/dL Normal 4-19 [facility] Comment on above: Performed By: #### L 7400.0280 #### [facility] [address] [place], [address] CBC W/Diff, Automatedon 10-2 Absolute Lymph 1.75 X10 3/uL Normal 0.83-4.51 [facility] Comment on above: Performed By: #### L 100.0100 #### [facility] [address] [place], [address] Absolute Neut 8.1 X10 3/uL High 2.0-7.7 [facility] Comment on above: Performed By: #### L 100.0100 #### [facility] [address] [place], [address] Basophils/100 WBC (Bld) 0.3 % Normal 0-1 [facility] Comment on above: Performed By: #### L 100.0100 #### [facility] [address] [place], [address] Eosinophils/100 WBC (Bld) 5.7 % High 0-5 [facility] Comment on above: Performed By: #### L 100.0100 #### [facility] [address] [place], [address] Erythrocyte distribution width (RBC) [Ratio] 12.6 % Normal 11.6-14.6 [facility] Comment on above: Performed By: #### L 100.0100 #### [facility] [address] [place], [address] Hematocrit (Bld) [Volume fraction] 26.7 % Low 37-47 [facility] Comment on above: Performed By: #### L 100.0100 #### [facility] [address] [place], [address] Hemoglobin (Bld) [Mass/Vol] 9.2 g/dL Low 12.0-15.0 [facility] Comment on above: Performed By: #### L 100.0100 #### [facility] [address] [place], [address] IG% 0.600 Normal 0.0-0.9 [facility] Comment on above: Result Comment: IG% - Immature Granulocytes (promyelocytes, myelocytes and metamyelocytes) > 1% indicates that a LEFT SHIFT is Present. Performed By: #### L 100.0100 #### [facility] [address] [place], [address] Lymphocytes/100 WBC (Bld) 15.7 % Low 19-41 [facility] Comment on above: Performed By: #### L 100.0100 #### [facility] [address] [place], [address] MCH (RBC) [Entitic mass] 29.6 pg Normal 27.0-32.0 [facility] Comment on above: Performed By: #### L 100.0100 #### [facility] [address] [place], [address] MCHC (RBC) [Mass/Vol] 34.5 g/dL Normal 32-[address] [facility] Comment on above: Performed By: #### L 100.0100 #### [facility] [address] [place], [address] MCV (RBC) [Entitic vol] 85.9 fL Normal 81-99 [facility] Comment on above: Performed By: #### L 100.0100 #### [facility] [address] [place], [address] Monocytes/100 WBC (Bld) 5.1 % Normal 0-10 [facility] Comment on above: Performed By: #### L 100.0100 #### [facility] [address] [place], [address] Neutrophils/100 WBC (Bld) 72.6 % High 47-70 [facility] Comment on above: Performed By: #### L 100.0100 #### [facility] [address] [place], [address] Nucleated RBC (Bld) [#/Vol] 0 10*3/uL Normal 0-5 [facility] Comment on above: Performed By: #### L 100.0100 #### [facility] [address] [place], [address] Platelet mean volume (Bld) [Entitic vol] 10.3 fL Normal 6.2-12.0 [facility] Comment on above: Performed By: #### L 100.0100 #### [facility] [address] [place], [address] Platelets (Bld) [#/Vol] 212 10*3/uL Normal 150-450 [facility] Comment on above: Performed By: #### L 100.0100 #### [facility] [address] [place], [address] RBC (Bld) [#/Vol] 3.11 10*6/uL Low 4.2-5.[address] [facility] Comment on above: Performed By: #### L 100.0100 #### [facility] [address] [place], [address] RDW SD 38.3 fl Normal 35.1-43.9 [facility] Comment on above: Performed By: #### L 100.0100 #### [facility] [address] [place], [address] WBC (Bld) [#/Vol] 11.1 10*3/uL High 4.4-11.[address] [facility] Comment on above: Performed By: #### L 100.0100 #### [facility] [address] [place], [address] Absolute Lymph 1.78 X10 3/uL Normal 0.83-4.51 [facility] Comment on above: Performed By: #### L 100.0100 #### [facility] [address] [place], [address] Absolute Neut 8.7 X10 3/uL High 2.0-7.7 [facility] Comment on above: Performed By: #### L 100.0100 #### [facility] [address] [place], [address] Basophils/100 WBC (Bld) 0.3 % Normal 0-1 [facility] Comment on above: Performed By: #### L 100.0100 #### [facility] [address] [place], [address] Eosinophils/100 WBC (Bld) 6.1 % High 0-5 [facility] Comment on above: Performed By: #### L 100.0100 #### [facility] [address] [place], [address] Erythrocyte distribution width (RBC) [Ratio] 12.6 % Normal 11.6-14.6 [facility] Comment on above: Performed By: #### L 100.0100 #### [facility] [address] [place], [address] Hematocrit (Bld) [Volume fraction] 26.5 % Low 37-47 [facility] Comment on above: Performed By: #### L 100.0100 #### [facility] [address] [place], [address] Hemoglobin (Bld) [Mass/Vol] 9.5 g/dL Low 12.0-15.0 [facility] Comment on above: Performed By: #### L 100.0100 #### [facility] [address] [place], [address] IG% 0.800 Normal 0.0-0.9 [facility] Comment on above: Result Comment: IG% - Immature Granulocytes (promyelocytes, myelocytes and metamyelocytes) > 1% indicates that a LEFT SHIFT is Present. Performed By: #### L 100.0100 #### [facility] [address] [place], [address] Lymphocytes/100 WBC (Bld) 14.8 % Low 19-41 [facility] Comment on above: Performed By: #### L 100.0100 #### [facility] [address] [place], [address] MCH (RBC) [Entitic mass] 30.6 pg Normal 27.0-32.0 [facility] Comment on above: Performed By: #### L 100.0100 #### [facility] [address] [place], [address] MCHC (RBC) [Mass/Vol] 35.8 g/dL Normal 32-[address] [facility] Comment on above: Performed By: #### L 100.0100 #### [facility] [address] [place], [address] MCV (RBC) [Entitic vol] 85.5 fL Normal 81-99 [facility] Comment on above: Performed By: #### L 100.0100 #### [facility] [address] [place], [address] Monocytes/100 WBC (Bld) 5.8 % Normal 0-10 [facility] Comment on above: Performed By: #### L 100.0100 #### [facility] [address] [place], [address] Neutrophils/100 WBC (Bld) 72.2 % High 47-70 [facility] Comment on above: Performed By: #### L 100.0100 #### [facility] [address] [place], [address] Nucleated RBC (Bld) [#/Vol] 0 10*3/uL Normal 0-5 [facility] Comment on above: Performed By: #### L 100.0100 #### [facility] [address] [place], [address] Platelet mean volume (Bld) [Entitic vol] 10.2 fL Normal 6.2-12.0 [facility] Comment on above: Performed By: #### L 100.0100 #### [facility] [address] [place], [address] Platelets (Bld) [#/Vol] 207 10*3/uL Normal 150-450 [facility] Comment on above: Performed By: #### L 100.0100 #### [facility] [address] [place], [address] RBC (Bld) [#/Vol] 3.10 10*6/uL Low 4.2-5.[address] [facility] Comment on above: Performed By: #### L 100.0100 #### [facility] [address] [place], [address] RDW SD 37.8 fl Normal 35.1-43.9 [facility] Comment on above: Performed By: #### L 100.0100 #### [facility] [address] [place], [address] WBC (Bld) [#/Vol] 12.0 10*3/uL High 4.4-11.[address] [facility] Comment on above: Performed By: #### L 100.0100 #### [facility] [address] [place], [address] CTA Chst, Abd, Pel W and/or WOon 01-25-2025 CTA Chst, Abd, Pel W and/or WO [facility] Imaging Services [address] [place] [address] CTA Chst, Abd, Pel W and/or WO MR#: [id number] Acct: [id number] Name: BEATRICE BORREGO Rep #: [id number] : 1985 F 39 From: Coleman burt MD PCP: Dr. Librado Ybarra DO Status: [facility] Study: CTA Chst, Abd, Pel W and/or WO Date of Exam: Exam# [id number] Ordering Dr: Humble Burroughs DO PROCEDURE: CTA CHST, ABD, PEL W AND/OR WO 01/25/2025 REASON FOR EXAM: CHEST/ABD PAIN S/P SURGERY TECHNIQUE: Procedure Code: CTCTA.CHAP.2 Modality: CT Procedure: CTA CHST, ABD, PEL W AND/OR WO Coronal and Sagittal reconstruction series were provided. One or more dose reduction techniques were used (e.g., Automated exposure control, adjustment of the mA and/or kV according to patient size, use of iterative reconstruction technique. CONTRAST: Isovue 370 VOLUME: 100 mL RADIATION DOSE SUMMARY: CTDlvol: 19.2 mGy DLP: 1288 mGycm COMPARISON: None. FINDINGS: Recent hysterectomy. Acute hematoma is noted in the surgical bed measuring 7.5 x 4.[address] evidence of active bleeding during the time of the exam. Mild amount of surrounding free acute hemorrhagic products in the pelvis. Prior appendectomy. Prior cholecystectomy. Mild edema of the lower aspect of the anterior abdominal wall, probably benign finding secondary to recent intervention. Normal enhancement of the main pulmonary artery and right and left pulmonary arteries. Normal enhancement of the bilateral peripheral pulmonary arteries. There is no demonstrated pulmonary embolism. Normal thoracic aorta and visualized great vessels. There is no demonstrated aortic dissection. Normal heart and pericardium. Normal mediastinum. Normal hilar regions. Normal visualized trachea and bronchi. The lungs are well expanded. Normal pulmonary parenchyma. Normal pleura. Normal chest wall structures. Normal osseous structures. Normal liver. Normal extrahepatic biliary system. Normal spleen. Normal pancreas. Normal bilateral adrenal glands. Normal size of the right kidney. There is no right renal mass. There are no right renal calculi. There is no right hydronephrosis. Normal visualized right ureter. Normal size of the left kidney. There is no left renal mass. There are no left renal calculi. There is no left hydronephrosis. Normal visualized left ureter. Normal visualized stomach. Normal small intestine. Normal colon. Normal abdominal aorta. Normal inferior vena cava. Normal retroperitoneum. Normal urinary bladder. There is no pelvic mass lesion or lymphadenopathy. Normal osseous structures. CT/CTA Chst, Abd, Pel W and/or WO IMPRESSION: Recent hysterectomy. Acute hematoma is noted in the surgical bed measuring 7.5 x 4.[address] evidence of active bleeding during the time of the exam. Mild amount of surrounding free acute hemorrhagic products in the pelvis. Prior appendectomy. Prior cholecystectomy. Mild edema of the lower aspect of the anterior abdominal wall, probably benign finding secondary to recent intervention. Reading Location: [place] [address] CC: Dr. Librado Ybarra DO; Humbel Burroughs DO Associate Professor Of Literature: Signed Normal [facility] Emergency Department Summary on 01-25-2025 Emergency Department Summary [facility] Medical Records Department [address] [place] [address] Emergency Department Summary 01/25/25 MR#: [id number] Acct: [id number] Name: BEATRICE BORREGO Rep #: [id number] : 1985 39 From: Humble Burroughs DO PCP: Dr. Librado Ybarra DO Status:ADM IN Location: VT3 [id number] HPI History of Present Illness Chief Complaint: Fever Informant: patient Narrative Narrative: Patient is a 39-year-old female with past medical history of anxiety and depression. She states that roughly 1 week ago she underwent a laparoscopic hysterectomy. She states she has been doing well but in the last day or so has noticed increased bruising and pain along the left abdomen and then today spiked a fever of 101. She states that there are no known sick symptoms such as congestion cough sore throat dysuria nausea vomiting or diarrhea. Patient also denies any known sick contacts at home. however with her recent procedure she was concern for an infectious process and therefore comes in for evaluation. [facility] Medical History Hyperplasia of endometrium determined by [...] Taken ???Type Lactobacillus acidophilus 250 500 mmu cells PO DAILY 05/20/24 History million cell capsule (Probiotic Acidophilus) cholecalciferol (vitamin D3) 50 50 mcg PO DAILY 05/20/24 01/04/25 History mcg (2,000 unit) capsule (Vitamin D3) omega 3-qwv-msp-fish oil 1,200 mg 1 cap PO DAILY 05/20/24 01/04/25 History (144 mg-216 mg) capsule (Fish Oil) ibuprofen 200 mg tablet (Advil) 800 mg PO Q6H PRN pain 07/20/24 History cyclobenzaprine 10 mg tablet 10 mg PO TID PRN muscle spasm #30 07/27/24 Unknown Rx tabs omeprazole 40 mg capsule,delayed 40 mg PO BID 90 days #180 caps 01/18/25 05:30 Rx release ondansetron 4 mg disintegrating 4 mg PO Q8H PRN nausea and 5 Unknown Rx tablet vomiting #30 tabs mecobalamin (vitamin B12) 500 mcg 2,500 mcg PO DAILY 10/22/2401/04 History chewable tablet bupropion HCl 150 mg 24 hr tablet, 150 mg PO QAM #90 TABLETS 01/18/25 05:30 Rx extended release escitalopram oxalate 10 mg tablet 15 mg (1.5 x 10 mg) PO QHS 90 day s 12/06/24 01/17/25 20:30 Rx #135 tabs lorazepam 0.5 mg tablet 0.5 mg PO DAILY PRN anxiety #30 01/18/25 05:30 Rx tabs naproxen 500 mg tablet 500 mg PO BID PRN PRN Pain #30 tab s 01/21/25 Unknown Rx oxycodone-acetaminophen 5 mg-325 1 tab PO Q4H PRN pain 7 days #20 1 Unknown Rx mg tablet (Percocet) tabs Allergy/AdvReac Type Severity Reaction Status Date / Time citalopram hydrobromide Allergy Hives Verified 01/25/25 00:06 (From Celexa) Penicillins (PCN) Allergy Hives Verified 01/25/25 00:06 tetanus immune globulin Allergy Hives Verified 01/25/25 00:06 liraglutide (From Victoza) AdvReac Nausea/Vom/ Verified 01/25/25 00:06 Diarrhea morphine AdvReac Itching Verified 01/25/25 00:06 Family History Mother Hypertension High cholesterol Alcoholism Arthritis Depression Sister Thyroid cancer Depression Colon cancer Arthritis Autoimmune disorder Thyroid disorder Father Alcoholism Anxiety Depression Myocardial infarction Psychiatric care Grandfather Lung cancer Aunt Esophageal cancer Surgical History Status post bilateral salpingectomy S/P laparoscopic assisted vaginal hysterectomy (LAVH) H/O esophagogastroduodenoscop y H/O dilation and curettage History of hysteroscopy Previous section H/O repair of right rotator cuff History of appendectomy Hx of cholecystectomy History of tonsillectomy Social History household members: spouse and children housing: house number of children: 2 current occupational status: employed current occupation: [employer] pets and animals: Yes pets and animals: dog(s) Smoking Status: Former smoker alcohol intake: current substance use type: does not use what type of physical activity do you participate in: walking and weight training frequen (more content not included)... Normal [facility] H AND P Exam - OB/GYNon 12-30 H&P Exam - WIRE BENDER [facility] Medical Records Department [address] [place] [address] H P Exam - WIRE BENDER 01/25/25 0823 MR#: [id number] Acct: [id number] Name: BEATRICE BORREGO Rep #: [id number] : 1985 39 From: Mony Cisneros MD PCP: Dr. Librado Ybarra, DO Status:DIS IN Location: [facility] [place] NO551-0 HPI - General General Date of Admission: 01/25/25 HPI Narrative BEATRICE BORREGO, is a 39 F who presents with fever and lower abdominal pain 7 days postop from [facility]. Upon evaluation in the ER she was found to have a temp of 99.6 and was anemic, CT scan showed a postoperative hematoma in the pelvis. [facility] Medical History Hyperplasia of endometrium determined by [...] Taken ???Type Lactobacillus acidophilus 250 500 mmu cells PO DAILY 05/20/24 History million cell capsule (Probiotic Acidophilus) cholecalciferol (vitamin D3) 50 50 mcg PO DAILY 05/20/24 01/04/25 History mcg (2,000 unit) capsule (Vitamin D3) omega 0-eem-kvk-fish oil 1,200 mg 1 cap PO DAILY 05/20/24 01/04/25 History (144 mg-216 mg) capsule (Fish Oil) ibuprofen 200 mg tablet (Advil) 800 mg PO Q6H PRN pain 07/20/24 History cyclobenzaprine 10 mg tablet 10 mg PO TID PRN muscle spasm #30 07/27/24 Unknown Rx tabs omeprazole 40 mg capsule,delayed 40 mg PO BID 90 days #180 caps 01/18/25 05:30 Rx release ondansetron 4 mg disintegrating 4 mg PO Q8H PRN nausea and 5 Unknown Rx tablet vomiting #30 tabs mecobalamin (vitamin B12) 500 mcg 2,500 mcg PO DAILY 10/22/2401/04 History chewable tablet bupropion HCl 150 mg 24 hr tablet, 150 mg PO QAM #90 TABLETS 01/18/25 05:30 Rx extended release escitalopram oxalate 10 mg tablet 15 mg (1.5 x 10 mg) PO QHS 90 day s 12/06/24 01/17/25 20:30 Rx #135 tabs lorazepam 0.5 mg tablet 0.5 mg PO DAILY PRN anxiety #30 01/18/25 05:30 Rx tabs naproxen 500 mg tablet 500 mg PO BID PRN PRN Pain #30 tab s 01/21/25 Unknown Rx oxycodone-acetaminophen 5 mg-325 1 tab PO Q4H PRN pain 7 days #20 1 Unknown Rx mg tablet (Percocet) tabs Allergy/AdvReac Type Severity Reaction Status Date / Time citalopram hydrobromide Allergy Hives Verified 01/25/25 00:06 (From Celexa) Penicillins (PCN) Allergy Hives Verified 01/25/25 00:06 tetanus immune globulin Allergy Hives Verified 01/25/25 00:06 liraglutide (From Victoza) AdvReac Nausea/Vom/ Verified 01/25/25 00:06 Diarrhea morphine AdvReac Itching Verified 01/25/25 00:06 Family History Mother Hypertension High cholesterol Alcoholism Arthritis Depression Sister Thyroid cancer Depression Colon cancer Arthritis Autoimmune disorder Thyroid disorder Father Alcoholism Anxiety Depression Myocardial infarction Psychiatric care Grandfather Lung cancer Aunt Esophageal cancer Surgical History Status post bilateral salpingectomy S/P laparoscopic assisted vaginal hysterectomy (LAVH) H/O esophagogastroduodenoscop y H/O dilation and curettage History of hysteroscopy Previous section H/O repair of right rotator cuff History of appendectomy Hx of cholecystectomy History of tonsillectomy Social History household members: spouse and children housing: house number of children: 2 current occupational status: employed current occupation: [employer] pets and animals: Yes pets and animals: dog(s) Smoking Status: Former smoker alcohol intake: current substance use type: does not use what type of physical activity do you participate in: walking and weight training frequency: 3-4 times per week do you feel safe at home: Yes additional social history: Elias History 2 Elective abortions Hx Para 2 Spontaneous abortions Hx # Term Pregnancies Ectopic pregnancies Hx # Pregnancies Multiple births # of living children 2 Past Pregnancies Del. Date Name GA/Weeks Outcome Route Bth Weight Infant Gen Labor Lgth Anes (more content not included)... Normal [facility] Lipaseon 01-25-2025 Lipase [Catalytic activity/Vol] 16 U/L Normal 13-75 [facility] Comment on above: Result Comment: Hussain whittaker note: LIPASE revised reference range effective 22. New Lipase methodology. Expected to produce lower values than the previous assay method. NEW Reference Range: 13 - 75 U/L Performed By: #### L 7400.0280 #### [facility] [address] [place], [address] Liver Profileon 01-25-2025 Albumin [Mass/Vol] 4.0 g/dL Normal 3.5-5.0 [facility] Comment on above: Performed By: #### L 7400.0280 #### [facility] [address] [place], [address] ALK PHOS 64 U/L Normal 35-104 [facility] Comment on above: Performed By: #### L 7400.0280 #### [facility] [address] [place], [address] ALT [Catalytic activity/Vol] 58 U/L High <=34 [facility] Comment on above: Performed By: #### L 7400.0280 #### [facility] [address] [place], [address] AST [Catalytic activity/Vol] 45 U/L High <=31 [facility] Comment on above: Performed By: #### L 7400.0280 #### [facility] [address] [place], [address] Bilirubin [Mass/Vol] 1.07 mg/dL Normal 0.00-1.30 [facility] Comment on above: Performed By: #### L 7400.0280 #### [facility] [address] [place], [address] Bilirubin.direct [Mass/Vol] 0.40 mg/dL High 0.00-0.30 [facility] Comment on above: Performed By: #### L 7400.0280 #### [facility] [address] [place], [address] Globulin (S) [Mass/Vol] 2.7 g/dL Normal 2.2-4.2 [facility] Comment on above: Performed By: #### L 7400.0280 #### [facility] [address] [place], [address] T PROT 6.7 g/dL Normal 5.9-8.4 [facility] Comment on above: Performed By: #### L 7400.0280 #### [facility] [address] [place], [address] M100.678on 01-25-2025 M100.678 Normal Reference Ran ge = Negative FLUABV+SARS-CoV-2+RSV Pnl Resp JO ANN+probe GeneXpert Instrument, PCR method SARS-CoV-2 (COVID 19) Negative INFLUENZA A Negative INFLUENZA B Negative RSV PCR Negative Normal [facility] Comment on above: Performed By: #### M 100.678 ####[facility] [address] [place], [address] Partial Thromboplast Timeon 01-25-2025 aPTT Coag (Bld) [Time] 32.0 s Normal 24.1-36.2 [facility] Comment on above: Performed By: #### L 7400.0280 #### [facility] [address] [place], [address] Prothrombin Time w/INRon INR Coag (PPP) [Relative time] 1.1 {INR} Normal [facility] Comment on above: Performed By: #### L 7400.0280 #### [facility] [address] [place], [address] PT Coag (PPP) [Time] 14.0 s Normal 11.7-14.9 [facility] Comment on above: Performed By: #### L 7400.0280 #### [facility] [address] [place], [address] Urinalysis, Completeon 01-25 BACTERIA RARE Normal None Seen [facility] Comment on above: Order Comment: COLLE CTOR TO SPECIFY Performed By: #### L 500.4050, L100.0100 #### [facility] [address] [place], [address] EPI,SQUAMOUS 0-5 SEEN Normal 5-10 [facility] Comment on above: Order Comment: COLLE CTOR TO SPECIFY Performed By: #### L 500.4050, L100.0100 #### [facility] [address] [place], [address] RBC 0-5 SEEN Normal 0-5 [facility] Comment on above: Order Comment: COLLE CTOR TO SPECIFY Performed By: #### L 500.4050, L100.0100 #### [facility] [address] [place], [address] WBC 0-5 SEEN Normal 0-5 [facility] Comment on above: Order Comment: COLLE CTOR TO SPECIFY Performed By: #### L 500.4050, L100.0100 #### [facility] [address] [place], [address] Mucus Ql (Urine sed) 0 SEEN Normal [facility] Comment on above: Order Comment: COLLE CTOR TO SPECIFY Performed By: #### L 500.4050, L100.0100 #### [facility] [address] [place], [address] Program Services Planner Office Visit Reporton 01-21-2025 Program Services Planner Office Visit Report [facility] [address], [address] [place] [address] OFFICE VISIT Date of Service: 01/21/25 MR#: [id number] Acct: [id number] Name: BEATRICE BORREGO Rep #: [id number] : 1985 Provider: Dr. 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 Normal [facility] Hepatitis B Core Ab Totalon 01-20-2025 HEP B CORE,TOT Negative Normal Negative [facility] Comment on above: Order Comment: Has p t arrived? Y Result Comment: Perf ormed at: [facility] [address] [id number] Double Bass Player: Dany White PhD, Phone: [phone] Performed By: #### L 500.4050, L100.0100 #### [facility] [address] [place], [address] CBC-Complete Blood Cnt No Di ffon 01-19-2025 HCT Normal 37-47 [facility] Comment on above: Result Comment: Canc elled via OM: Order cancelled - Patient discharged Performed By: #### L 500.4050, L100.0100 #### [facility] [address] [place], [address] HGB Normal 12.0-15.0 [facility] Comment on above: Result Comment: Canc elled via OM: Order cancelled - Patient discharged Performed By: #### L 500.4050, L100.0100 #### [facility] [address] [place], [address] MCH Normal 27.0-32.0 [facility] Comment on above: Result Comment: Canc elled via OM: Order cancelled - Patient discharged Performed By: #### L 500.4050, L100.0100 #### [facility] [address] [place], [address] MCHC Normal 32-36 [facility] Comment on above: Result Comment: Canc elled via OM: Order cancelled - Patient discharged Performed By: #### L 500.4050, L100.0100 #### [facility] [address] [place], [address] MCV Normal 81-99 [facility] Comment on above: Result Comment: Canc elled via OM: Order cancelled - Patient discharged Performed By: #### L 500.4050, L100.0100 #### [facility] [address] [place], [address] PLT Normal 150-450 [facility] Comment on above: Result Comment: Canc elled via OM: Order cancelled - Patient discharged Performed By: #### L 500.4050, L100.0100 #### [facility] [address] [place], [address] RBC Normal 4.2-5.4 [facility] Comment on above: Result Comment: Canc elled via OM: Order cancelled - Patient discharged Performed By: #### L 500.4050, L100.0100 #### [facility] [address] [place], [address] RDW CV Normal 11.6-14.6 [facility] Comment on above: Result Comment: Canc elled via OM: Order cancelled - Patient discharged Performed By: #### L 500.4050, L100.0100 #### [facility] [address] [place], [address] RDW SD Normal 35.1-43.9 [facility] Comment on above: Result Comment: Canc elled via OM: Order cancelled - Patient discharged Performed By: #### L 500.4050, L100.0100 #### [facility] [address] [place], [address] WBC Normal 4.4-11.0 [facility] Comment on above: Result Comment: Canc elled via OM: Order cancelled - Patient discharged Performed By: #### L 500.4050, L100.0100 #### [facility] [address] [place], [place], [address] 12 Lead EKGon 01-18-2025 12 Lead EKG [facility] [address] [place] [address] 12 Lead EKG 01/18/25 0739 MR#: [id number] Acct: [id number] Name: BEATRICE BORREGO Rep #: [id number] : 1985 39 From: Lambert Rojo MD Attending Dr: Dr. Mony Cisneros MD Status: REG SD Ordering Dr: Herbert Hair MD Date: 01/18/25 Location: Sex: F C Admitted: Test Reason : [...] change was found Confirmed by Lambert Rojo ([id number]), medical editor TRUE STACK ([id number]) on 01/18/2025 12:49:18 PM Referred By: Mony Cisneros Confirmed By: Lambert Rojo 01/18/25 1249 Date Lambert Rojo MD CC: Dr. Herbert Hair MD; Dr. Lbirado Ybarra DO; Dr. Mony Cisneros MD Signed Normal [facility] Bedside Glucoseon 01-18-2025 FINGERSTICK GLU 85 mg/dL Normal 74-106 [facility] Comment on above: Result Comment: KAREL YARBROUGH OF PATIENT CARE PER NURSING PROTOCOL Performed By: #### L 501.080 #### [facility] [address] [place], [address] CBC W/Diff, Automatedon 12-30 Absolute Lymph 1.17 X10 3/uL Normal 0.83-4.51 [facility] Comment on above: Performed By: #### L 500.4050, L100.0100 #### [facility] [address] [place], [address] Absolute Neut 11.6 X10 3/uL High 2.0-7.7 [facility] Comment on above: Performed By: #### L 500.4050, L100.0100 #### [facility] [address] [place], [address] Basophils/100 WBC (Bld) 0.3 % Normal 0-1 [facility] Comment on above: Performed By: #### L 500.4050, L100.0100 #### [facility] [address] [place], [address] Eosinophils/100 WBC (Bld) 0.2 % Normal 0-5 [facility] Comment on above: Performed By: #### L 500.4050, L100.0100 #### [facility] [address] [place], [address] Erythrocyte distribution width (RBC) [Ratio] 11.9 % Normal 11.6-14.6 [facility] Comment on above: Performed By: #### L 500.4050, L100.0100 #### [facility] [address] [place], [address] Hematocrit (Bld) [Volume fraction] 35.8 % Low 37-47 [facility] Comment on above: Performed By: #### L 500.4050, L100.0100 #### [facility] [address] [place], [address] Hemoglobin (Bld) [Mass/Vol] 12.7 g/dL Normal 12.0-15.0 [facility] Comment on above: Performed By: #### L 500.4050, L100.0100 #### [facility] [address] [place], [address] IG% 0.300 Normal 0.0-0.9 [facility] Comment on above: Result Comment: IG% - Immature Granulocytes (promyelocytes, myelocytes and metamyelocytes) > 1% indicates that a LEFT SHIFT is Present. Performed By: #### L 500.4050, L100.0100 #### [facility] [address] [place], [address] Lymphocytes/100 WBC (Bld) 9.0 % Low 19-41 [facility] Comment on above: Performed By: #### L 500.4050, L100.0100 #### [facility] [address] [place], [address] MCH (RBC) [Entitic mass] 29.8 pg Normal 27.0-32.0 [facility] Comment on above: Performed By: #### L 500.4050, L100.0100 #### [facility] [address] [place], [address] MCHC (RBC) [Mass/Vol] 35.5 g/dL Normal 32-[address] [facility] Comment on above: Performed By: #### L 500.4050, L100.0100 #### [facility] [address] [place], [address] MCV (RBC) [Entitic vol] 84.0 fL Normal 81-99 [facility] Comment on above: Performed By: #### L 500.4050, L100.0100 #### [facility] [address] [place], [address] Monocytes/100 WBC (Bld) 0.8 % Normal 0-10 [facility] Comment on above: Performed By: #### L 500.4050, L100.0100 #### [facility] [address] [place], [address] Neutrophils/100 WBC (Bld) 89.4 % High 47-70 [facility] Comment on above: Performed By: #### L 500.4050, L100.0100 #### [facility] [address] [place], [address] Nucleated RBC (Bld) [#/Vol] 0 10*3/uL Normal 0-5 [facility] Comment on above: Performed By: #### L 500.4050, L100.0100 #### [facility] [address] [place], [address] Platelet mean volume (Bld) [Entitic vol] 10.4 fL Normal 6.2-12.0 [facility] Comment on above: Performed By: #### L 500.4050, L100.0100 #### [facility] [address] [place], [address] Platelets (Bld) [#/Vol] 238 10*3/uL Normal 150-450 [facility] Comment on above: Performed By: #### L 500.4050, L100.0100 #### [facility] [address] [place], [address] RBC (Bld) [#/Vol] 4.26 10*6/uL Normal 4.2-5.[address] [facility] Comment on above: Performed By: #### L 500.4050, L100.0100 #### [facility] [address] [place], [address] RDW SD 35.8 fl Normal 35.1-43.9 [facility] Comment on above: Performed By: #### L 500.4050, L100.0100 #### [facility] [address] [place], [address] WBC (Bld) [#/Vol] 13.0 10*3/uL High 4.4-11.[address] [facility] Comment on above: Performed By: #### L 500.4050, L100.0100 #### [facility] [address] [place], [address] CBC-Complete Blood Cnt No Di ffon 01-18-2025 Erythrocyte distribution width (RBC) [Ratio] 11.8 % Normal 11.6-14.6 [facility] Comment on above: Performed By: #### L 500.4050, L100.0100 #### [facility] [address] [place], [address] Hematocrit (Bld) [Volume fraction] 37.1 % Normal 37-47 [facility] Comment on above: Performed By: #### L 500.4050, L100.0100 #### [facility] [address] [place], [address] Hemoglobin (Bld) [Mass/Vol] 13.2 g/dL Normal 12.0-15.0 [facility] Comment on above: Performed By: #### L 500.4050, L100.0100 #### [facility] [address] [place], [address] MCH (RBC) [Entitic mass] 30.0 pg Normal 27.0-32.0 [facility] Comment on above: Performed By: #### L 500.4050, L100.0100 #### [facility] [address] [place], [address] MCHC (RBC) [Mass/Vol] 35.6 g/dL Normal 32-[address] [facility] Comment on above: Performed By: #### L 500.4050, L100.0100 #### [facility] [address] [place], [address] MCV (RBC) [Entitic vol] 84.3 fL Normal 81-99 [facility] Comment on above: Performed By: #### L 500.4050, L100.0100 #### [facility] [address] [place], [address] Platelet mean volume (Bld) [Entitic vol] 10.2 fL Normal 6.2-12.0 [facility] Comment on above: Performed By: #### L 500.4050, L100.0100 #### [facility] [address] [place], [address] Platelets (Bld) [#/Vol] 230 10*3/uL Normal 150-450 [facility] Comment on above: Performed By: #### L 500.4050, L100.0100 #### [facility] [address] [place], [address] RBC (Bld) [#/Vol] 4.40 10*6/uL Normal 4.2-5.[address] [facility] Comment on above: Performed By: #### L 500.4050, L100.0100 #### [facility] [address] [place], [address] RDW SD 36.0 fl Normal 35.1-43.9 [facility] Comment on above: Performed By: #### L 500.4050, L100.0100 #### [facility] [address] [place], [address] WBC (Bld) [#/Vol] 7.6 10*3/uL Normal 4.4-11.0 [facility] Comment on above: Performed By: #### L 500.4050, L100.0100 #### [facility] [address] [place], [address] Discharge Instructionon 12-30 Discharge Instruction [facility] Medical Records Department [address] [place] [address] Instructions for Home/Discharge Instructions 01/18/25 1229 MR#: [id number] Acct: [id number] Name: BEATRICE BORREGO Rep #: [id number] : 1985 39 From: Mony Cisneros MD [...] Care Provider: Librado Ybarra Instructions Print Language: Indonesian Discharge Orders/Prescriptions Prescriptions: No Action mecobalamin (vitamin [...] PRN (Reason: anxiety) Qty: 30 1RF omega 7-hmp-hxj-fish oil [Fish Oil] 1,200 (144-216) mg capsule [...] can be placed): Home, Self Care 01/18/25 1229 Mony Cisneros MD CC: Dr. Librado Ybarra DO Signed Normal [facility] HIVon 01-18-2025 HIV Non-Reactive Normal Nonreactive [facility] Comment on above: Order Comment: Reaso [...] Order the HIV antibody detection and differentiation: [id number] Performed By: #### L 500.4050, L100.0100 #### [facility] [address] [facility] [id number] Hepatitis B Surface Antibody on 01-18-2025 HEP B Surf Ab REAC Normal [facility] Comment on above: Result Comment: <8.5 mIU/mL: Non-Reactive 8.5<= x <11.5 mIU/mL: Indeterminate >=11.5 mIU/mL: Reactive Non Reactive: Inconsistent with immunity less than <10 mIU/mL Reactive: Consistent with immunity greater than or equal to 10 mIU/mL Performed By: #### L 500.4050, L100.0100 #### [facility] [address] [place], [address] Hepatitis C Antibodyon 01-18 Hepatitis C Ab Non-Reactive Normal Nonreactive [facility] Comment on above: Order Comment: Reaso [...] HCV Quant by PCR testing - HCVPCR #[id number] Non Reactive: < 0.8 Equivocal: >/= 0.8 to < 1.0 Reactive: >/= 1.0 The CDC requires that a reactive/equivocal HCV antibody result be sent out for confirmation. HCV Quant by PCR testing. Performed By: #### L 500.4050, L100.0100 #### [facility] [address] [place], [address] L3890.6102on 01-18-2025 HEP B Surf Ag Non-Reactive Normal Nonreactive [facility] Comment on above: Order Comment: Reaso n for Exam: exposure Result Comment: Reac tive: Presumptive evidence of HBV. Repeatedly reactive samples must be confirmed using a neutralization test ([employer] HBsAg Confirmatory Test) Non-Reactive: HBsAg not detected; does not exclude the possibility of exposure to HBV Performed By: #### L 500.4050, L100.0100 #### [facility] [address] [place], [address] MR/POSTOP.ANEon 01-18-2025 MR/POSTOP.[facility] Medical Records Department [address] [place] [address] Anesthesia Postop Eval I 01/18/25 1240 MR#: [id number] Acct: [id number] Name: BEATRICE BORREGO Rep #: [id number] : 1985 39 From: Michael Dc CRNA PCP: Dr. Librado Ybarra, DO Status:REG SDC Y Race: C Location: [place] [address] Anesthesia: Postop Eval I Current Vital Signs [...] completed: Yes 01/18/25 1241 Date Michael Dc CRNA Cosigner Signature: Date CC: Signed Normal [facility] MR/[id number] 01-18-2025 MR/POSTOPAN2 [facility] Medical Records Department [address] [place] [address] Anesthesia Postop Eval II 01/18/25 1737 MR#: [id number] Acct: [id number] Name: BEATRICE BORREGO Rep #: [id number] : 1985 39 From: Michael Dc CRNA PCP: Dr. Librado Ybarra, DO Status:[facility] Y Race: C Location: [facility] [place] Anesthesia Postop Eval I Sum Postop Eval Completion status Anesthesia document: Postop Eval 1 completed: Yes Anesthesia Postop Eval I Summary Anesthesia Postop Eval I Summary: Anesthesia Postop Eval I: Assessment Summary Airway patent Yes 01/18/25 12:41 CERTIFIED OPTICIAN.PKEL Spontaneous unlabored Yes 01/18/25 12:41 CERTIFIED OPTICIAN.PKEL respirations Mental status Awake,Calm 01/18/25 12:41 CERTIFIED OPTICIAN.PKEL nausea No 01/18/25 12:41 CERTIFIED OPTICIAN.PKEL Vomiting No 01/18/25 12:41 CERTIFIED OPTICIAN.PKEL Anesthesia Postop Eval I: Fluid Summary Crystalloid volume administer 1,800 01/18/25 12:41 CERTIFIED OPTICIAN.PKEL (ml) Colloids volume administered ( ml) Blood Product volume administered (ml) Total IV fluid infused 1,800 01/18/25 12:41 CERTIFIED OPTICIAN.PKEL Anesthesia Postop Eval I: Summary Notes Anesthesia Complication No 01/18/25 12:41 CERTIFIED OPTICIAN.PKEL Anesthesia Complication Comment: Post-operative progress note Anesthesia: Postop Eval II Evaluation Mental status: Awake and Calm Pain Level: 0 nausea: No Vomiting: No Complications Anesthesia Complication: No 01/18/25 1738 Date Michael Dc VU Cosigner Signature: Date CC: Signed Normal [facility] Operative Reporton 5 Operative Report [facility] Medical Records Department [address] [place] [address] Operative Report 01/18/25 1223 MR#: [id number] Acct: [id number] Name: BEATRICE BORREGO Rep #: [id number] : 1985 39 From: Mony Cisneros MD PCP: Dr. Librado Ybarra, Status:[facility] Location: [facility]21-1 Procedures Urinary/Genital 52xxx-59xxx: 35202 LAVH+BS/O <250gr Uterus Operative Report (Standard) Operative Information Date of Procedure: 01/18/25 Pre-Operative Diagnosis: fibroid aub chronic pelvic pain Post-Operative Diagnosis: same Surgery/Procedure Performed: laparoscopic assisted vaginal hysterectomy bilateral salpingectomy belt cutter: Yes Applications Intern: Dionisio Gresham Tasks completed by nurse practitioner physician assistant: Opening closing, Trocar and Retracting Additional assistant golf course superintendent?: No Type of Anesthesia: General RN Documented Start/Stop Times: Operation Date: 01/18/25 09:30 Case Time Into Pre-Op 01/18/25 07:29 Out of Pre-Op 01/18/25 09:43 Anesthesia Start 01/18/25 09:49 Into Room 01/18/25 09:49 Procedure Start 01/18/25 10:22 Procedure Start Time: :22 Procedure Stop Time: 12:20 Select all DRAINS/GRAFTS/IMPLANTS [...] peritoneum. This was reapproximated using 0 Vicryl mcldev-or-kuetf sutures. Excellent hemostasis was noted. Attention paid [...] evacuated with (more content not included)... Normal [facility] ,Urineon 01-18-2025 Beta HCG ( test) Ql (U) Negative Normal [facility] Comment on above: Result Comment: Very dilute urine specimens, as indicated by a low specific gravity, may not contain customer care representative levels of hCG. If is still suspected, a first morning urine specimen should be collected 48 hours later and tested. Performed By: #### L 500.4050, L100.0100 #### [facility] [address] [place], [place], [address] Surgery Specimen Level Von 1 Surgery Specimen Level V Patient Age/Sex Location Account Attending Physician BEATRICE BORREGO 39/F [facility] [id number] Dr. Mony Cisneros MD Specimen: [id number] Received: 01/18/25 Status: IFRAH Peng Num: [id number] Spec Type: UTERUS Subm Dr: Dr. Mony [...] . Designated as uterus, cervix, bilateral fallopian tubes" is a 149.8 g, 9.1 x 6.0 [...] material. The specimen is inked as follows: Wlmcvcsc-rkabaPfxkcmxgp-v lackParametrium-orangeRig ht lateral cystic area-blue Opening reveals [...] are few paratubal cyst, <0.1 cm each. Trucker sections are submitted as follows: A1: Anterior cervixA2: Posterior cervixA3: Anterior endomyometrium and possible serosal adhesionsA4: Posterior endomyometriumA5: Left fallopian tube, including paratubal cystA6: Right fallopian tube, including paratubal cystA7: Leiomyoma and right lateral cystic area MD 01/18/2025 CPT:01522 Patient Age/Sex Location Account Attending Physician BEATRICE BORREGO 39/F [facility] [id number] Dr. Mony Cisneros MD Signed (signature on file) Dr. Rosie Motley DO 01/19/25 1316 Normal [facility] Comment on above: Performed By: #### P SUV ####[facility] [address] [facility] [place], [place], [id number] CBC-Complete Blood Cnt No Di ffon 01-04-2025 Erythrocyte distribution width (RBC) [Ratio] 11.5 % Low 11.6-14.6 [facility] Comment on above: Performed By: #### L 501.080 #### [facility] [address] [place], [place], [id number] (715) Hematocrit (Bld) [Volume fraction] 37.7 % Normal 37-47 [facility] Comment on above: Performed By: #### L 501.080 #### [facility] [address] [place], [place], [address] (687) Hemoglobin (Bld) [Mass/Vol] 13.2 g/dL Normal 12.0-15.0 [facility] Comment on above: Performed By: #### L 501.080 #### [facility] [address] [place], [place], [address] (631) MCH (RBC) [Entitic mass] 29.4 pg Normal 27.0-32.0 [facility] Comment on above: Performed By: #### L 501.080 #### [facility] [address] [place], [address] MCHC (RBC) [Mass/Vol] 35.0 g/dL Normal 32-[address] [facility] Comment on above: Performed By: #### L 501.080 #### [facility] [address] [place], [address] MCV (RBC) [Entitic vol] 84.0 fL Normal 81-99 [facility] Comment on above: Performed By: #### L 501.080 #### [facility] [address] [place], [address] Platelet mean volume (Bld) [Entitic vol] 10.3 fL Normal 6.2-12.0 [facility] Comment on above: Performed By: #### L 501.080 #### [facility] [address] [place], [address] Platelets (Bld) [#/Vol] 268 10*3/uL Normal 150-450 [facility] Comment on above: Performed By: #### L 501.080 #### [facility] [address] [place], [address] RBC (Bld) [#/Vol] 4.49 10*6/uL Normal 4.2-5.[address] [facility] Comment on above: Performed By: #### L 501.080 #### [facility] [address] [place], [address] RDW SD 35.1 fl Normal 35.1-43.9 [facility] Comment on above: Performed By: #### L 501.080 #### [facility] [address] [place], [address] WBC (Bld) [#/Vol] 9.2 10*3/uL Normal 4.4-11.0 [facility] Comment on above: Performed By: #### L 501.080 #### [facility] [address] [place], [address] MR/Mattie 01-04-2025 MR/[facility]LEN [facility] Medical Records Department [address] [place] [address] PAT - Anesthesia 01/04/25 1204 MR#: [id number] Acct: [id number] Name: BEATRICE BORREGO Rep #: [id number] : 1985 39 From: Bhavesh Leung MD PCP: Dr. 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 Female Yes 01/04/25 10:18 HX of Motion [...] 12/21/24 10:37 Respiratory Assessment Respiratory Assessment - 2nd grade teacher: Respiratory Tract Infection Hx - 2nd grade teacher Hx Respiratory Tract Infection No 01/04/25 10:18 STOP Sleep Apnea STOP Sleep Apnea - 2nd grade teacher: STOP Sleep Apnea - 2nd grade teacher Hx Hypertension No 01/04/25 10:18 Hx Sleep [...] Tobacco Use History 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 Tobacco Use Smoking Status Former smoker 01/04/25 10:18 Hx Tobacco Use Yes 01/04/25 10:18 Years Smoking Packs Smoked per Day Smoking Cessation Date was Yes - quit smoking within 15 01/04/25 10:18 within the last 15 years years Hx Smoking Cessation Date 01/02/25 01/04/25 10:18 Hx Smoking Cessation Yes 01/04/25 10:18 Counseling Hematologic Medial History 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 Specify any problems Hx of Preganancy in last 3 No 01/04/25 10:18 Months Nurse Filling Out Transfusion [email or web address] 01/04/25 10:18 Questions: Date: 01/04/25 01/04/25 10:18 Time: :01/04/25 10:18 Patient unable to answer at this time (ie. 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 Normal [facility] Magnesiumon 01-04-2025 Magnesium [Mass/Vol] 1.9 mg/dL Normal 1.5-2.2 [facility] Comment on above: Performed By: #### L 501.5200 ####[facility] [address] [place], [place], [address] Type AND Screen - PAT ONLYon 01-04-2025 Ab SCREEN GEL Negative Normal [facility] Comment on above: Order Comment: Surge ry Date: 01/18/25Reason for Laboratory Test [id number] Performed By: #### L 501.080 #### [facility] [address] [place], [place], [address] PAP IG HPV APTIMA 16/18,45on 12-24-2024 ADEQ Comment Normal . [facility] Comment on above: Order Comment: Speci men Comment: [id number] Specimen Comment: No. of containers..01 ThinPrep Vial Result Comment: Sati sfactory for evaluation. No endocervical component is identified. Performed By: #### L 7400.0280 #### [facility] [address] [place], [place], [address] COMM . Normal . [facility] Comment on above: Order Comment: Speci men Comment: [id number] Specimen Comment: No. of containers..01 ThinPrep Vial Performed By: #### L 7400.0280 #### [facility] [address] [place], [place], [address] COMMENT Comment Normal . [facility] Comment on above: Order Comment: Speci men Comment: [id number] Specimen Comment: No. of containers..01 ThinPrep Vial Result Comment: This liquid based ThinPrep(R) pap test was screened with the use of an image guided system. Performed By: #### L 7400.0280 #### [facility] [address] [place], [place], [address] DIAG Comment Normal . [facility] Comment on above: Order Comment: Speci men Comment: [id number] Specimen Comment: No. of containers..01 ThinPrep Vial Result Comment: NEGA TIVE FOR INTRAEPITHELIAL LESION OR MALIGNANCY. Performed By: #### L 7400.0280 #### [facility] [address] [place], [address] HPV APTIMA, HR Negative Normal Negative [facility] Comment on above: Order Comment: Speci men Comment: [id number] Specimen Comment: No. of containers..01 ThinPrep Vial Result Comment: This nucleic acid amplification test detects fourteen high- risk HPV types (16,18,31,33,35,39,45,51,52,56,58,59,66,68) without differentiation. Performed By: #### L 7400.0280 #### [facility] [address] [place], [address] HPV Ina Rfx Comment Normal . [facility] Comment on above: Order Comment: Speci men Comment: [id number] Specimen Comment: No. of containers..01 ThinPrep Vial Result Comment: Crit eria not met, HPV Genotype not performed. Performed at: [address] [id number] Double Bass Player: Litzy Delong MD, Phone: [phone] Performed at: =[address] [id number] Double Bass Player: Litzy Delong MD, Phone: [phone] Performed By: #### L 7400.0280 #### [facility] [address] [place], [place], [address] PAPSMR Comment Normal . [facility] Comment on above: Order Comment: Speci men Comment: [id number] Specimen Comment: No. of containers..01 ThinPrep Vial Result Comment: The Pap smear is a screening test designed to aid in the detection of premalignant and malignant conditions of the uterine cervix. It is not a diagnostic procedure and should not be used as the sole means of detecting cervical cancer. Both false-positive and false-negative reports do occur. Performed By: #### L 7400.0280 #### [facility] [address] [place], [place], [address] PERFORM Comment Normal . [facility] Comment on above: Order Comment: Speci men Comment: [id number] Specimen Comment: No. of containers..01 ThinPrep Vial Result Comment: Malgorzata Shafer, Feed Manager (ASCP) Performed By: #### L 7400.0280 #### [facility] [address] [place], [place], [address] Program Services Planner Office Visit Reporton 12-21-2024 Program Services Planner Office Visit Report [facility] [address], [address] [place] [address] OFFICE VISIT Date of Service: 12/21/24 MR#: [id number] Acct: [id number] Name: BEATRICE BORREGO Rep #: [id number] : 1985 Provider: Dr. Mony hinojosa MD Age/Sex: 38/F Location: [facility] Status: Signed Intake Vital Signs 10/22/24 16:02 11/15/24 09:00 12/06/24 07:08 12/21/24 10:37 Height 5 ft 4 in 5 ft 4 in 5 ft 4 in 5 ft 4 in Weight: 209 lb 6 oz BMI 35.9 BP 127/86 H Intake Visit Reasons: hysterectomy pre-op Machine Rough Rounder Required: No Is patient in pain?: No [...] mcg (2,000 unit) capsule (Vitamin D3) omega 2-gyz-zdq-fish oil 1,200 mg 1 cap PO DAILY [...] menopausal: No Patient : No : No [facility] History Carpal tunnel syndrome Flu-like symptoms [...] 2 current occupational status: employed current occupation: [employer] pets and animals: Yes pets and [...] history of (more content not included)... Normal [facility] Surgery Specimen Level Gabriella 12-21-2024 Surgery Specimen Level IV Patient Age/Sex Location Account Attending Physician BEATRICE BORREGO 38/F [facility] [id number] Dr. Mony Cisneros MD Specimen: [id number] Received: 12/21/24 Status: IFRAH Peng Num: [id number] Spec Type: ENDOM BX/C Subm Dr: Dr. Mony Cisneros MD HEADER [...] of the specimen may not survive processing. MD 12/21/2024 CPT:75524 Patient Age/Sex Location Account Attending Physician BEATRICE BORREGO 38/F [facility] [id number] Dr. Mony Cisneros MD Signed (signature on file) Dr. Marcelina Camarillo MD 12/24/24 1735 Normal [facility] Comment on above: Performed By: #### P ELAINE ####[facility] [address] [place], [place], [address] MR/BMS.on 12-06-2024 MR/BMS.[address], [address] [place] [address] OFFICE VISIT Date of Service: 12/06/24 MR#: [id number] Acct: [id number] Name: BEATRICE BORREGO Rep #: [id number] : 1985 Provider: Dr. Raphael Akers se DO Age/Sex: 38/F Location: [facility]. Status: Signed Intake Vital Signs 11/15/24 09:00 [...] morphine Adverse Reaction (Verified 10/22/24 15:57) Itching [facility] Medical History Carpal tunnel syndrome Flu-like symptoms [...] 2 current occupational status: employed current occupation: [employer] pets and animals: Yes pets and animals: [...] going back to school. Daughter is in "[employer]" and son is in kindergarten. Son will be starting occupational therapy. Has been taking control which she feels like has been affecting her mood. Describes mood as "all over the place." Hoping to have hysterectomy in the somewhat near future. 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 Continues to feel fairly fatigued, but maybe somewhat improved. Continues to have some consistent depression and anxiety which she feels is largely situational. Follows with Rhianna Hagan at [facility]. Has been taking medications regularly. Had wellbutrin increased to 300 mg by WIRE BENDER but has returned to 150 mg after [...] Thought Con (more content not included)... Normal [facility] Program Services Planner Office Visit Reporton 10-22-2024 Program Services Planner Office Visit Report [facility] [address], [address] [place] [address] OFFICE VISIT Date of Service: 10/22/24 MR#: [id number] Acct: [id number] Name: BEATRICE BORREGO Rep #: [id number] : 1985 Provider: Dr. Mony hinojosa MD Age/Sex: 38/F Location: [facility] Status: Signed Intake Vital Signs 07/13/24 10:56 07/20/24 10:56 10/22/24 15:56 10/22/24 16:02 Height 5 ft 4 in 5 ft 4 in 5 ft 4 in 5 ft 4 in Weight: 208 lb 6 oz BMI 35.7 BP 129/84 H Intake Visit Reasons: 3 M FU Machine Rough Rounder Required: No Is patient in pain?: No Allergies citalopram hydrobromide (From [employer]) Allergy (Verified 10/22/24 15:57) Hives Penicillins (PCN) [...] mcg (2,000 unit) capsule (Vitamin D3) omega 2-kee-yfc-fish oil 1,200 mg 1 cap PO DAILY [...] 4 mg PO Q8H PRN nausea and 09/30/ 5 10/22/24 Rx tablet vomiting #30 tabs [...] 2 current occupational status: employed current occupation: [employer] pets and animals: Yes pets and [...] pregnancies H (more content not included)... Normal [facility] L5500.0550on 10-12-2024 BEEF <0.10 Normal Class 0 [facility] Comment on above: Performed By: #### L 501.080 #### [facility] [address] [place], [address] CHOCOLATE <0.10 Normal Class 0 [facility] Comment on above: Performed By: #### L 501.080 #### [facility] [address] [place], [address] CODFISH <0.10 Normal Class 0 [facility] Comment on above: Performed By: #### L 501.080 #### [facility] [address] [place], [place], [address] COMMENT Comment Normal . [facility] Comment on above: Result Comment: Laurita arnold of Specific IgE Class Description of Class ----- < 0.10 0 Negative 0.10 - 0.31 0/I Equivocal/Low 0.32 - 0.55 I Low 0.56 - 1.40 II Moderate 1.41 - 3.90 III High 3.91 - 19.00 IV Very High 19.01 - 100.00 V Very High >100.00 Very High Performed By: #### L 501.080 #### [facility] [address] [place], [address] CORN <0.10 Normal Class 0 [facility] Comment on above: Performed By: #### L 501.080 #### [facility] [address] [place], [address] EGG, WHOLE <0.10 Normal Class 0 [facility] Comment on above: Result Comment: Perf ormed at: [facility] [address] [id number] Double Bass Player: Jacinto Shea MD, Phone: [phone] Performed By: #### L 501.080 #### [facility] [address] [place], [address] MILK (COW) <0.10 Normal Class 0 [facility] Comment on above: Performed By: #### L 501.080 #### [facility] [address] [place], [address] MUSSELS <0.10 Normal Class 0 [facility] Comment on above: Performed By: #### L 501.080 #### [facility] [address] [place], [address] PEANUT <0.10 Normal Class 0 [facility] Comment on above: Performed By: #### L 501.080 #### [facility] [address] [place], [address] PORK <0.10 Normal Class 0 [facility] Comment on above: Performed By: #### L 501.080 #### [facility] [address] [place], [address] SALMON <0.10 Normal Class 0 [facility] Comment on above: Performed By: #### L 501.080 #### [facility] [address] [place], [address] SHRIMP <0.10 Normal Class 0 [facility] Comment on above: Performed By: #### L 501.080 #### [facility] [address] [place], [address] SOYBEAN <0.10 Normal Class 0 [facility] Comment on above: Performed By: #### L 501.080 #### [facility] [address] [place], [address] TUNA <0.10 Normal Class 0 [facility] Comment on above: Performed By: #### L 501.080 #### [facility] [address] [place], [place], [address] WHEAT <0.10 Normal Class 0 [facility] Comment on above: Performed By: #### L 501.080 #### [facility] [address] [place], [address] M7400.3302on 10-08-2024 M7400.3302 TESTING PERFORMED AT [facility]. ORIGINAL REPORT ON FILE IN LAB CONTAINS ADDITIONAL TEST SITE INFORMATION. Giardia Lamblia EIA NEGATIVE Normal [facility] Comment on above: Performed By: #### L 501.080 #### [facility] [address] [place], [place], [address] Ova and Parasites 8623on OP OVA AND PARASITES EX AM, ROUTINE These results were obtained using wet preparation(s) and trichrome stained smear. This test does not include testing for Crytosporidium parvum, Cyclospora, or Microsporidia. One negative specimen does not rule out the possibility of a parasitic infection. [facility]FOR[facility] AT [facility]. ORIGINAL REPORT ON FILE IN LAB CONTAINS ADDITIONAL TEST SITE INFORMATION. Ova/Parasite Exam NO OVA, CYSTS, OR PARASITES FOUND. Normal [facility] Comment on above: Performed By: #### L 501.080 #### [facility] [address] [place], [place], [id number] Celiac Disease Profileon ENDOMYSIAL IGA Negative Normal Negative [facility] Comment on above: Performed By: #### L 501.080 #### [facility] [address] [place], [place], [id number] IMMUNOGLOB A QN 60 mg/dL Low 87-352 [facility] Comment on above: Performed By: #### L 501.080 #### [facility] [address] [place], [address] tTG IGA <2 Normal 0-3 [facility] Comment on above: Result Comment: Nega tive 0 - 3 Weak Positive 4 - 10 Positive >10 Tissue Transglutaminase (tTG) has been identified as the endomysial antigen. Studies have demonstr- ated that endomysial IgA antibodies have over 99% specificity for gluten sensitive enteropathy. Performed By: #### L 501.080 #### [facility] [address] [place], [address] tTG IGG 2 U/mL Normal 0-5 [facility] Comment on above: Result Comment: Nega tive 0 - 5 Weak Positive 6 - 9 Positive >9 Performed at: [facility] [address] [id number] Double Bass Player: Dany White PhD, Phone: [phone] Performed By: #### L 501.080 #### [facility] [address] [place], [address] Calprotectin, Stoolon [address] 67 ug/g Normal 0-120 [facility] Comment on above: Result Comment: Conc entration Interpretation Follow-Up < 5 - 50 ug/g Normal None >50 -120 ug/g Borderline Re-evaluate in 4-6 weeks >120 ug/g Abnormal Repeat as clinically indicated Performed at: [facility] [address] [id number] Double Bass Player: Jacinto Shea MD, Phone: [phone] Performed By: #### L 501.080 #### [facility] [address] [place], [address] Gastroenterology Visit Repor kristal 10-05-2024 Gastroenterology Visit Report [facility] [address] [place] [address] OFFICE VISIT Date of Service: 10/05/24 MR#: [id number] Acct: [id number] Name: BEATRICE BORREGO Rep #: [id number] : 1985 Provider: LAVONNE Loja Age/Sex: 38/F Location[place] [facility] Status: Signed Intake Vital Signs 07/20/24 10:56 [...] and sees an improvement with her symptoms. [facility] Medical History Carpal tunnel syndrome Flu-like symptoms [...] 2 current occupational status: employed current occupation: [employer] pets and animals: Yes pets and animals: [...] presents to the office today for f/u. [facility] established 03.10.24 for screening colonoscopy. Pt sister was diagnosed with colon cancer at age 50. Pt has GI symptoms including diarrhea, heartburn,nausea and ab pain. She is on semaglutide and metformin and feels her symptoms are a side effect of these meds. Colonoscopy and EGD in 2013 without abnormality. Colonoscopy ..25; - Two 8 mm polyps in the sigmoid colon and at the splenic flexure, removed with a jumbo cold forceps. Resected and retrieved. - The examination was otherwise normal on direct and retroflexion views. EGD .25; - Z-line irregular, 39 cm from the [...] or o (more content not included)... Normal [facility] L7000.0750on 10-05-2024 P ELASTASE,FECA > 800 Normal >200 [facility] Comment on above: Result Comment: Resu lt Units: ug Elast./g Severe Pancreatic Insufficiency: <100 Moderate Pancreatic Insufficiency: 100 - 200 Normal: >200 Performed at: [facility] [address] [id number] Double Bass Player: Jacinto Shea MD, Phone: [phone] Performed By: #### L 501.080 #### [facility] [place], [address] CDIFF (PCR)on 09-30-2024 CDIFF A positive C. diffic ile molecular test does not differentiate between an active C. difficile infection and C. difficile colonization. Use clinical judgement and paired toxin/antigen testing to identify true infection and need for treatment. C diff DNA Spec Ql JO ANN+probe Reference Range: Negative [employer] GeneXpert: polymerase chain reaction (PCR) 027 027 NAP1-B1 Presumptive Negative *for epidemiolologic???use C. Diff PCR Negative- No toxigenic C. Diff Detected Normal [facility] Comment on above: Performed By: #### M 7400.3302, L7000.0700, M600.5000, L7000.0750, M100.637, M100.7900, M100.6796 ####[facility] [address] [place], [place], [id number] ENTERIC PATHOGEN PANEL STOOL on 09-30-2024 EP [...] VIBRIO Not Detected Yersinia Not Detected Normal [facility] Comment on above: Performed By: #### M 7400.3302, L7000.0700, M600.5000, L7000.0750, M100.637, M100.7900, M100.6796 ####[facility] [address] [place], [place], [id number] Stool Occult Blood iFOBon STOB Negative Normal [facility] Comment on above: Performed By: #### M 7400.3302, L7000.0700, M600.5000, L7000.0750, M100.637, M100.7900, M100.6796 ####[facility] [address] [place], [place], [id number] CBC W/Diff, Automatedon 07-0 Absolute Lymph 2.99 X10 3/uL Normal 0.83-4.51 [facility] Comment on above: Performed By: #### L 500.4050, L100.0100 #### [facility] [address] [place], [address] Absolute Neut 3.8 X10 3/uL Normal 2.0-7.7 [facility] Comment on above: Performed By: #### L 500.4050, L100.0100 #### [facility] [address] [place], [address] Basophils/100 WBC (Bld) 0.5 % Normal 0-1 [facility] Comment on above: Performed By: #### L 500.4050, L100.0100 #### [facility] [address] [place], [address] Eosinophils/100 WBC (Bld) 4.0 % Normal 0-5 [facility] Comment on above: Performed By: #### L 500.4050, L100.0100 #### [facility] [address] [place], [address] Erythrocyte distribution width (RBC) [Ratio] 11.9 % Normal 11.6-14.6 [facility] Comment on above: Performed By: #### L 500.4050, L100.0100 #### [facility] [address] [place], [address] Hematocrit (Bld) [Volume fraction] 38.3 % Normal 37-47 [facility] Comment on above: Performed By: #### L 500.4050, L100.0100 #### [facility] [address] [place], [address] Hemoglobin (Bld) [Mass/Vol] 13.7 g/dL Normal 12.0-15.0 [facility] Comment on above: Performed By: #### L 500.4050, L100.0100 #### [facility] [address] [place], [address] IG% 0.100 Normal 0.0-0.9 [facility] Comment on above: Result Comment: IG% - Immature Granulocytes (promyelocytes, myelocytes and metamyelocytes) > 1% indicates that a LEFT SHIFT is Present. Performed By: #### L 500.4050, L100.0100 #### [facility] [address] [place], [address] Lymphocytes/100 WBC (Bld) 39.8 % Normal 19-41 [facility] Comment on above: Performed By: #### L 500.4050, L100.0100 #### [facility] [address] [place], [address] MCH (RBC) [Entitic mass] 30.2 pg Normal 27.0-32.0 [facility] Comment on above: Performed By: #### L 500.4050, L100.0100 #### [facility] [address] [place], [address] MCHC (RBC) [Mass/Vol] 35.8 g/dL Normal 32-[address] [facility] Comment on above: Performed By: #### L 500.4050, L100.0100 #### [facility] [address] [place], [address] MCV (RBC) [Entitic vol] 84.4 fL Normal 81-99 [facility] Comment on above: Performed By: #### L 500.4050, L100.0100 #### [facility] [address] [place], [address] Monocytes/100 WBC (Bld) 5.6 % Normal 0-10 [facility] Comment on above: Performed By: #### L 500.4050, L100.0100 #### [facility] [address] [place], [address] Neutrophils/100 WBC (Bld) 50.0 % Normal 47-70 [facility] Comment on above: Performed By: #### L 500.4050, L100.0100 #### [facility] [address] [place], [address] Nucleated RBC (Bld) [#/Vol] 0 10*3/uL Normal 0-5 [facility] Comment on above: Performed By: #### L 500.4050, L100.0100 #### [facility] [address] [place], [address] Platelet mean volume (Bld) [Entitic vol] 10.6 fL Normal 6.2-12.0 [facility] Comment on above: Performed By: #### L 500.4050, L100.0100 #### [facility] [address] [place], [address] Platelets (Bld) [#/Vol] 237 10*3/uL Normal 150-450 [facility] Comment on above: Performed By: #### L 500.4050, L100.0100 #### [facility] [address] [place], [address] RBC (Bld) [#/Vol] 4.54 10*6/uL Normal 4.2-5.[address] [facility] Comment on above: Performed By: #### L 500.4050, L100.0100 #### [facility] [address] [place], [address] RDW SD 36.3 fl Normal 35.1-43.9 [facility] Comment on above: Performed By: #### L 500.4050, L100.0100 #### [facility] [address] [place], [address] WBC (Bld) [#/Vol] 7.5 10*3/uL Normal 4.4-11.0 [facility] Comment on above: Performed By: #### L 500.4050, L100.0100 #### [facility] [address] [place], [address] Comprehensive Metabolic Prof [facility] 09-29-2024 Albumin [Mass/Vol] 4.4 g/dL Normal 3.5-5.0 [facility] Comment on above: Performed By: #### L 500.4050, L100.0100 #### [facility] [address] [place], [address] Albumin/Globulin [Mass ratio] 1.5 {ratio} Normal 0.9-2.4 [facility] Comment on above: Performed By: #### L 500.4050, L100.0100 #### [facility] [address] [place], [address] ALK PHOS 53 U/L Normal 35-104 [facility] Comment on above: Performed By: #### L 500.4050, L100.0100 #### [facility] [address] [place], [address] ALT [Catalytic activity/Vol] 25 U/L Normal <=34 [facility] Comment on above: Performed By: #### L 500.4050, L100.0100 #### [facility] [address] [place], [address] AST [Catalytic activity/Vol] 29 U/L Normal <=31 [facility] Comment on above: Performed By: #### L 500.4050, L100.0100 #### [facility] [address] [place], [address] Bilirubin [Mass/Vol] 0.29 mg/dL Normal 0.00-1.30 [facility] Comment on above: Performed By: #### L 500.4050, L100.0100 #### [facility] [address] [place], [address] BUN/CRE 18.5 RATIO Normal 10-20 [facility] Comment on above: Performed By: #### L 500.4050, L100.0100 #### [facility] [address] [place], [address] Calcium [Mass/Vol] 9.5 mg/dL Normal 7.6-11.0 [facility] Comment on above: Performed By: #### L 500.4050, L100.0100 #### [facility] [address] [place], [address] Chloride [Moles/Vol] 102 mmol/L Normal 98-108 [facility] Comment on above: Performed By: #### L 500.4050, L100.0100 #### [facility] [address] [place], [address] CO2 [Moles/Vol] 22.0 mmol/L Normal 21.0-32.0 [facility] Comment on above: Performed By: #### L 500.4050, L100.0100 #### [facility] [address] [place], [address] Creatinine [Mass/Vol] 0.74 mg/dL Normal 0.70-1.[address] [facility] Comment on above: Performed By: #### L 500.4050, L100.0100 #### [facility] [address] [place], [address] GAP 12 Normal 5-15 [facility] Comment on above: Performed By: #### L 500.4050, L100.0100 #### [facility] [address] [place], [address] GFR/1.73 sq M.predicted among non-blacks MDRD (S/P/Bld) [Vol rate/Area] 106 mL/min/{1.73_m2} Normal >60 [facility] Comment on above: Result Comment: mL/m in/1.73m2 CKD-EPI Creatinine Equation (2020) Performed By: #### L 500.4050, L100.0100 #### [facility] [address] [place], [address] Globulin (S) [Mass/Vol] 2.9 g/dL Normal 2.2-4.2 [facility] Comment on above: Performed By: #### L 500.4050, L100.0100 #### [facility] [address] [place], [address] Glucose [Mass/Vol] 109 mg/dL High 70-99 [facility] Comment on above: Performed By: #### L 500.4050, L100.0100 #### [facility] [address] [place], [address] Potassium [Moles/Vol] 3.5 mmol/L Normal 3.3-5.[address] [facility] Comment on above: Performed By: #### L 500.4050, L100.0100 #### [facility] [address] [place], [address] Sodium [Moles/Vol] 136 mmol/L Normal 133-145 [facility] Comment on above: Performed By: #### L 500.4050, L100.0100 #### [facility] [address] [place], [address] T PROT 7.3 g/dL Normal 5.9-8.4 [facility] Comment on above: Performed By: #### L 500.4050, L100.0100 #### [facility] [address] [place], [address] Urea nitrogen [Mass/Vol] 14 mg/dL Normal 4-19 [facility] Comment on above: Performed By: #### L 500.4050, L100.0100 #### [facility] [address] [place], [address] Urine Cultureon 09-02-2024 URC Pending Mixed Gram Positive Organisms [place] Count 80,000-100,000 MIXC Mixed contaminants. Submit a new specimen if indicated. Normal [facility] Comment on above: Performed By: #### L 501.080 #### [facility] [address] [place], [address] Urinalysis, Routine (Dipstic k)on 08-31-2024 BILIRUBIN URINE Negative Normal Negative [facility] Comment on above: Order Comment: CLEAN CATCH Performed By: #### L 501.080 #### [facility] [address] [place], [address] Clarity (U) Sl. Cloudy Normal Clear [facility] Comment on above: Order Comment: CLEAN CATCH Performed By: #### L 501.080 #### [facility] [address] [place], [address] Color (U) Yellow Normal Yellow [facility] Comment on above: Order Comment: CLEAN CATCH Performed By: #### L 501.080 #### [facility] [address] [place], [address] GLUCOSE, UR Normal Normal Normal [facility] Comment on above: Order Comment: CLEAN CATCH Performed By: #### L 501.080 #### [facility] [address] [place], [address] KETONE UR Negative Normal Negative [facility] Comment on above: Order Comment: CLEAN CATCH Performed By: #### L 501.080 #### [facility] [address] [place], [address] LEUK ESTERASE Negative Normal Negative [facility] Comment on above: Order Comment: CLEAN CATCH Performed By: #### L 501.080 #### [facility] [address] [place], [address] Nitrite Ql (U) Negative Normal Negative [facility] Comment on above: Order Comment: CLEAN CATCH Performed By: #### L 501.080 #### [facility] [address] [place], [address] OCCULT BLOOD-UR 10 /ul Abnormal Negative [facility] Comment on above: Order Comment: CLEAN CATCH Performed By: #### L 501.080 #### [facility] [address] [place], [address] pH UR 7.0 Normal 5.0 - 8.0 [facility] Comment on above: Order Comment: CLEAN CATCH Performed By: #### L 501.080 #### [facility] [address] [place], [address] PROT DIPSTX 15 mg/dl Abnormal Negative [facility] Comment on above: Order Comment: CLEAN CATCH Performed By: #### L 501.080 #### [facility] [address] [place], [address] SP.GR. DIPSTX 1.010 Normal 1.002-1.030 [facility] Comment on above: Order Comment: CLEAN CATCH Performed By: #### L 501.080 #### [facility] [address] [place], [address] UROBILI Normal Normal Normal [facility] Comment on above: Order Comment: CLEAN CATCH Performed By: #### L 501.080 #### [facility] [address] [place], [address] Gastric Emptying Studyon Gastric Emptying Study [facility] Imaging Services [address] [place] [address] Gastric Emptying Study MR#: [id number] Acct: [id number] Name: BEATRICE BORREGO Rep #: [id number] : 1985 F 38 From: Ronnie Fernandez PCP: Dr. Librado Ybarra, DO Status: REG CLI Study: Gastric Emptying Study Date of Exam: 08/10/24 Exam# [id number] Ordering Dr: Hali Ruiz PROCEDURE: GASTRIC EMPTYING STUDY 08/10/2024 REASON FOR EXAM: BILE ACID REFLUX COMPARISON: None. TECHNIQUE: The patient ingested a standard semi-solid meal oatmeal.. There was no vomiting postprandially. Anterior and posterior planar images of the upper abdomen were obtained for a total of 60 minutes. Regions of interest were drawn, and a geometric mean was used to calculate a bknp-hodpxkae-gdtxv. Medications taken in the past 24 hours [...] of 39% at 60 minutes. Reading Location: [place] [address] CC: Dr. Librado Ybarra DO; LAVONNE Loja Associate Professor Of Literature: Signed Normal [facility] CCP IgG Antibodieson 025 CCP IgG Ab. 6 units Normal 0-19 [facility] Comment on above: Result Comment: Nega tive <20 Weak positive 20 - 39 Moderate positive 40 - 59 Strong positive >59 Performed at: [address] [id number] Double Bass Player: Dany White PhD, Phone: [phone] Performed By: #### L 7400.0280 #### [facility] [address] [place], [address] CBC W/Diff, Automatedon 06-30 Absolute Lymph 3.19 X10 3/uL Normal 0.83-4.51 [facility] Comment on above: Performed By: #### L 7400.0280 #### [facility] [address] [place], [address] Absolute Neut 5.5 X10 3/uL Normal 2.0-7.7 [facility] Comment on above: Performed By: #### L 7400.0280 #### [facility] [address] [place], [address] Basophils/100 WBC (Bld) 0.5 % Normal 0-1 [facility] Comment on above: Performed By: #### L 7400.0280 #### [facility] [address] [place], [address] Eosinophils/100 WBC (Bld) 3.7 % Normal 0-5 [facility] Comment on above: Performed By: #### L 7400.0280 #### [facility] [address] [place], [address] Erythrocyte distribution width (RBC) [Ratio] 12.3 % Normal 11.6-14.6 [facility] Comment on above: Performed By: #### L 7400.0280 #### [facility] [address] [place], [address] Hematocrit (Bld) [Volume fraction] 38.6 % Normal 37-47 [facility] Comment on above: Performed By: #### L 7400.0280 #### [facility] [address] [place], [address] Hemoglobin (Bld) [Mass/Vol] 13.8 g/dL Normal 12.0-15.0 [facility] Comment on above: Performed By: #### L 7400.0280 #### [facility] [address] [place], [address] IG% 0.300 Normal 0.0-0.9 [facility] Comment on above: Result Comment: IG% - Immature Granulocytes (promyelocytes, myelocytes and metamyelocytes) > 1% indicates that a LEFT SHIFT is Present. Performed By: #### L 7400.0280 #### [facility] [address] [place], [address] Lymphocytes/100 WBC (Bld) 32.8 % Normal 19-41 [facility] Comment on above: Performed By: #### L 7400.0280 #### [facility] [address] [place], [address] MCH (RBC) [Entitic mass] 30.7 pg Normal 27.0-32.0 [facility] Comment on above: Performed By: #### L 7400.0280 #### [facility] [address] [place], [address] MCHC (RBC) [Mass/Vol] 35.8 g/dL Normal 32-[address] [facility] Comment on above: Performed By: #### L 7400.0280 #### [facility] [address] [place], [address] MCV (RBC) [Entitic vol] 86.0 fL Normal 81-99 [facility] Comment on above: Performed By: #### L 7400.0280 #### [facility] [address] [place], [address] Monocytes/100 WBC (Bld) 6.0 % Normal 0-10 [facility] Comment on above: Performed By: #### L 7400.0280 #### [facility] [address] [place], [address] Neutrophils/100 WBC (Bld) 56.7 % Normal 47-70 [facility] Comment on above: Performed By: #### L 7400.0280 #### [facility] [address] [place], [address] Nucleated RBC (Bld) [#/Vol] 0 10*3/uL Normal 0-5 [facility] Comment on above: Performed By: #### L 7400.0280 #### [facility] [address] [place], [address] Platelet mean volume (Bld) [Entitic vol] 10.7 fL Normal 6.2-12.0 [facility] Comment on above: Performed By: #### L 7400.0280 #### [facility] [address] [place], [address] Platelets (Bld) [#/Vol] 227 10*3/uL Normal 150-450 [facility] Comment on above: Performed By: #### L 7400.0280 #### [facility] [address] [place], [address] RBC (Bld) [#/Vol] 4.49 10*6/uL Normal 4.2-5.[address] [facility] Comment on above: Performed By: #### L 7400.0280 #### [facility] [address] [place], [address] RDW SD 38.6 fl Normal 35.1-43.9 [facility] Comment on above: Performed By: #### L 7400.0280 #### [facility] [address] [place], [address] WBC (Bld) [#/Vol] 9.7 10*3/uL Normal 4.4-11.0 [facility] Comment on above: Performed By: #### L 7400.0280 #### [facility] [address] [place], [address] Emergency Department Summary on 07-20-2024 Emergency Department Summary [facility] Medical Records Department [address] [place] [address] Emergency Department Summary 07/20/24 MR#: [id number] Acct: [id number] Name: BEATRICE BORREGO Rep #: [id number] : 1985 38 From: Spenser Samuel PCP: [...] oral contraceptive soon. She is on her 25th- day of her current control. No blood [...] tab PO DAILY 05/20/24 5 History omega 2-cve-fpe-fish oil 1,200 mg 1 cap PO DAILY [...] 20 mcg (24)-iron 75 mg (4) tablet ( Fe 24) ibuprofen 200 mg tablet (Advil) 800 mg [...] 2 current occupational status: employed current occupation: [employer] pets and animals: Yes pets and animals: dog(s) Smoking Status: Former smoker alcohol intake: current substance use type: does not use what type of physical activity do you participate in: walking and weight training frequency: 3-4 times per week do you feel safe at home: Yes additional social history: Elias DUQUE NETO ED Constitutional Constitutional ED: Denies chills, fever(s) or sweats ENT ENT ED: Denies sore throat Cardiovascular Cardiovascular: Denies chest pain, leg edema, palpitations or racing heartbeat Respiratory/Chest Respiratory/Cherry (more content not included)... Normal [facility] ,Urineon 07-20-2024 Beta HCG ( test) Ql (U) Negative Normal [facility] Comment on above: Result Comment: Very dilute urine specimens, as indicated by a low specific gravity, may not contain customer care representative levels of hCG. If is still suspected, a first morning urine specimen should be collected 48 hours later and tested. Performed By: #### L 500.4050, L100.0100 #### [facility] [address] [place], [address] Transvaginal Non-on 07-20-2024 Transvaginal Non- [facility] Imaging Services [address] [place], [place] [address] Transvaginal Non- MR#: [id number] Acct: [id number] Name: BEATRICE BORREGO Rep #: [id number] : 1985 F 38 From: Obdulio cloud MD PCP: Dr. Librado Ybarra, Status: REG ER Study: Transvaginal Non- Date of Exam: Exam# [id number] Ordering Dr: Spenser Eldridge DO PROCEDURE: TRANSVAGINAL [...] uterus with the fundal fibroid. Reading Location: [place] [address] CC: Dr. Librado Ybarra, DO; Dr. Spenser Eldridge, DO Associate Professor Of Literature: Signed Normal [facility] CRPon 07-19-2024 C-REACTIVE PROT 4.03 mg/L High 0.0-3.0 [facility] Comment on above: Performed By: #### L 7400.0280 #### [facility] [address] [facility] [address] Erythrocyte Sed Rateon 07-19 SED RATE 5 mm/hr Normal 0-30 [facility] Comment on above: Performed By: #### L 7400.0280 #### [facility] [address] [facility] [address] Rheumatoid Factoron 07-20-19 25 RHEUMATOID FAC < 10.0 Normal <15 [facility] Comment on above: Performed By: #### L 7400.0280 #### [facility] [address] [facility] [address] Program Services Planner Office Visit Reporton 07-13-2024 Program Services Planner Office Visit Report [facility] [address], [address] [place] [address] OFFICE VISIT Date of Service: 07/13/24 MR#: [id number] Acct: [id number] Name: BEATRICE BORREGO Rep #: [id number] : 1985 Provider: Dr. Mony hinojosa MD Age/Sex: 38/F Location: [facility] Status: Signed Intake Vital Signs 06/16/24 11:03 07/13/24 10:56 Height 5 ft 4 in 5 ft 4 in Weight: 199 lb 204 lb 4 oz BMI 34.1 35.0 BP 130/80 H 122/86 H Blood Pressure Location Lt brachial Position Sitting Respiration 16 Pulse 87 Pulse Source Monitor Intake Visit Reasons: HYSTERECTOMY CONSULT Is patient in pain?: Yes ("cramping" pain on and off) Allergies citalopram hydrobromide [...] tab PO DAILY 05/20/24 5 History omega 3-fjk-cru-fish oil 1,200 mg 1 cap PO DAILY [...] 2 current occupational status: employed current occupation: [employer] pets and animals: Yes pets and animals: dog(s) Smoking Status: Former smoker (Patient did not smoke today.) alcohol intake: current substance use type: does not use what type of physical activity do you participate in: walking and weight training frequency: 3-4 times per week do you feel safe at home: Yes additional social history: Elias [facility] HYSTERECTOMY CONSULT Details: BEATRICE BORREGO is a 38 year old who presents for issues with AUB, chronic pelvic pain and small uterine fibroids, has been treated by [facility] in the past. she just started a new job so she would prefer conservative management, just started OCP by [facility]. she had an otherwise normal workup, EMB, has had hyperplasia in the past that resolved. she is open to a hysterectomy potatnially in the future if needed. Female Reproductive History Last Menstrual Period: 0 (more content not included)... Normal [facility] HEPATITIS B SURFACE ANTIBODY on 06-16-2024 Hep Bs Antibody, QN >1000.00 Invalid Interpretation Code [facility] Comment on above: Order Comment: Relea se to patient->Automatic Result Comment: Veri fied By: [id number] Hepatitis Bs Antibody Positive Abnormal Negative [facility] Comment on above: Order Comment: Relea se to patient->Automatic Result Comment: Refe rence value: Unvaccinated: Negative Vaccinated: Positive Anti-HBs concentration detected at > or = 11.5 mIU/mL. Individual is considered to be immune to infection with HBV. Verified By: [id number] Hepatitis B Surface Antibody Ordered By: Background Lab on 06-16-2024 HBV surface Ab Ql (S) Positive Abnormal Negative Ak[facility] Comment on above: Reference value: Unv accinated: Negative Vaccinated: Positive Anti-HBs concentration detected at > or = 11.5 mIU/mL. Individual is considered to be immune to infection with HBV. Verified By: [id number] Hep Bs Antibody, QN mIU/mL [facility] Comment on above: Verified By: [id number] Interpretation and review of laboratory results Abnormal [facility] MR/BMS.BPon 06-16-2024 MR/BMS.BP [address], [address] [place] [address] OFFICE VISIT Date of Service: 06/16/24 MR#: [id number] Acct: [id number] Name: BEATRICE BORREGO Rep #: [id number] : 1985 Provider: Dr. 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 Describes having some significant fatigue. Has been [...] from medications. Follows with Rhianna Hagan at [facility]. Feels like relationship has been improving in recent past. Denies SI/HI or AVH. Review of Systems Constitutional Reports: change in weight (loss); Denies: fever(s), chills or (more content not included)... Normal [facility] QUANTIFERON TB GOLDon 2024 Mitogen minus NIL >9.98 Invalid Interpretation Code [facility] Comment on above: Order Comment: Quant [...] repeated on a new specimen. Testing Performed: [address] [address] Release to patient->Automatic Quantiferon TB Gold Negative Invalid Interpretation Code Negative [facility] Comment on above: Order Comment: Quant [...] repeated on a new specimen. Testing Performed: [address] [address] Release to patient->Automatic TB1 minus NIL 0.00 IU/mL Invalid Interpretation Code -0.50-0.34 [facility] Comment on above: Order Comment: Quant [...] repeated on a new specimen. Testing Performed: [address] [address] Release to patient->Automatic TB2 minus NIL 0.00 IU/mL Invalid Interpretation Code -0.50-0.34 [facility] Comment on above: Order Comment: Quant [...] repeated on a new specimen. Testing Performed: [address] [address] Release to patient->Automatic Gastroenterology Visit Repor ton 06-15-2024 Gastroenterology Visit Report [facility] Gastroenterology [address] [place] [address] OFFICE VISIT Date of Service: 06/15/24 MR#: [id number] Acct: [id number] Name: BEATRICE BORREGO Rep #: [id number] : 1985 Provider: LAVONNE Loja Age/Sex: 38/F [place] [facility] [place] Status: Signed Intake Vital Signs 11/12/23 [...] PO QHS 05/20/24 05/31/24 Hi story omega 4-uar-lhv-fish oil 1,200 mg 1 cap PO DAILY 05/20/24 05/31/24 History (144 mg-216 mg) capsule (Fish Oil) omeprazole 40 mg capsule,delayed 40 mg PO QDAY #60 caps 06/01/24 R x release Nurse's Note: OV 06.15.24 Pt here for f/u and reports nausea, abdominal pain, diarrhea, constipation, gas, bloating daily and heartburn at night a few times a week. Pt continues omeprazole, and iron supplement. 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 [facility] established 03.10.24 for screening colonoscopy. Pt sister was diagnosed with colon cancer at age 50. Pt has GI symptoms including diarrhea, heartburn,nausea and ab pain. She is on semaglutide and metformin and feels her symptoms are a side effect of these meds. Colonoscopy and EGD in 2013 without abnormality. Colonoscopy 05.25.24; - Two 8 mm polyps in the sigmoid colon and at the splenic flexure, removed with a jumbo cold forceps. Resected and retrieved. - The examination was otherwise normal on direct and retroflexion views. EGD 05.25.24; - Z-line irregular, 39 cm from the incisors. Biopsied. - LA Grade A reflux esophagitis with no bleeding. - Erythematous mucosa in the antrum. Biopsied. - Erythematous duodenopathy. Biopsied. OV 06.15.24; Pt continues to have heartburn, nausea and abdominal pain. She has not noticed a difference since increasing the PPI but has only been doing this for 2 weeks. She is having 4-5 bm (more content not included)... Normal [facility] Urgent Care Visit Reporton 0 05-31-2024 Urgent Care Visit Report [facility] [address], [address] [place] [address] OFFICE VISIT Date of Service: 05/31/24 MR#: [id number] Acct: [id number] Name: BEATRICE BORREGO Rep #: [id number] : 1985 Provider: NAYANA Clark Age/Sex: 38/F Location: [facility] [place] Status: Signed Intake Vital Signs 05/25/24 11:47 [...] PO QHS 05/20/24 05/31/24 Hi story omega 9-orh-yih-fish oil 1,200 mg 1 cap PO DAILY 05/20/24 05/31/24 History (144 mg-216 mg) capsule (Fish Oil) Nurse's Note: Patient has congestion, ST and rattling in her chest with pressure. Patient states her daughter had flu A and pneumonia last week. 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 Normal [facility] Bedside Glucoseon 05-25-2024 FINGERSTICK GLU 78 mg/dL Normal 74-106 [facility] Comment on above: Result Comment: KAREL YARBROUGH OF PATIENT CARE PER NURSING PROTOCOL Performed By: #### L 501.080 #### [facility] [address] [place], [address] Colonoscopy Reporton 025 Colonoscopy Report [facility] Medical Records Department [address] [place] [address] Colonoscopy Report MR#: [id number] Acct: [id number] Name: BEATRICE BORREGO Rep #: [id number] : 1985 38 From: Erick Carnes DO PCP: Dr. Librado Ybarra, DO Status:[facility] Patient Name: Beatrice Borrego Procedure Date: 05/25/2024 [...] for surveillance. Procedure Code(s): --- Professional --- 04299, Colonoscopy, flexible; with biopsy, single or multiple CPT copyright 2021 [employer]. All rights reserved. The codes documented in this report are preliminary and upon belt glass sander review may be revised to meet current compliance requirements. Erick Carnes DO 05/25/2024 1:20:55 PM This report has been signed electronically. Number of Addenda: 0 Note Initiated On: 05/25/2024 12:54 PM 05/25/24 1320 Date Erick Carnes DO Cosigner Signature: Date (if indicated) CC: Dr. Librado Ybarra DO; Erick Carnes DO Date Dictated: 05/25/24 1254 Date Transcribed: Associate Professor Of Literature: RF Signed Normal [facility] EGD Reporton 05-25-2024 EGD Report [facility] Medical Records Department [address] [place] [address] EGD Report MR#: [id number] Acct: [id number] Name: BEATRICE BORREGO Rep #: [id number] : 1985 38 From: Erick Carnes DO PCP: Dr. Librado Ybarra DO Status:[facility] Patient Name: Beatrice Borrego Procedure Date: 05/25/2024 12:35 PM Date of : 1985 Age: 38 Procedure: Upper GI endoscopy Indications: Epigastric abdominal pain, Functional Dyspepsia, Heartburn, Suspected reflux esophagitis Providers: Eirck Carnes DO Medicines: Monitored Anesthesia Care Patient [...] pathology results. Procedure Code(s): --- Professional --- 65281, Esophagogastroduodenoscop y, flexible, transoral; with biopsy, single or multiple CPT copyright 2021 [employer]. All rights reserved. The codes documented in this report are preliminary and upon belt glass sander review may be revised to meet current compliance requirements. Erick Carnes DO 05/25/2024 1:18:22 PM This report has been signed electronically. Number of Addenda: 0 Note Initiated On: 05/25/2024 12:35 PM 05/25/24 1318 Date Erick Carnes DO Cosigner Signature: Date (more content not included)... Normal [facility] H Pylori (initial)on H Pylori (initial) ----- Patient Age/Sex Location Account Attending Physician BEATRICE BORREGO 38/F EN [id number] Erick Carnes DO Specimen: [id number] Received: 05/26/24 Status: IFRAH Peng Num: [id number] Spec Type: IMMUNO Subm Dr: Erick Carnes, PHYSICIAN INSTITUTION [address] [address] SPECIMEN INFORMATION: Tissue Source: B- Gastric antrum biopsy Clinical Info: Routine cancer screening Specimen Number: [id number] CPT code: 42032 METHODOLOGY: Deparaffinized sections of prefer/formalin-fixed tissue or [...] developed and their performance characteristics determined by [facility]. They may not have been cleared or approved by the U.S. Food and Drug Administration. The FDA has determined that such clearance or approval is not necessary. The above immunohistochemical/dualI SH markers are ordered and reviewed by the Pathologist. INTERPRETATION: B. Gastric antrum, biopsy: Negative for Helicobacter pylori organisms. SJ 05/27/2024 Signed (signature on file) Dr. Abdirahman Trinh MD 05/27/24 1343 Normal [facility] Comment on above: Performed By: #### P H.PYLORI ####[facility] [address] [place], [address] MR/POSTOP.Fam 05-25-2024 MR/POSTOP.[facility] Medical Records Department [address] [place] [address] Anesthesia Postop Eval I 05/25/24 1317 MR#: [id number] Acct: [id number] Name: BEATRICE BORREGO Rep #: [id number] : 1985 38 From: Eloy Dickinson PCP: Dr. Librado Ybarra, DO Status:[facility] Y Race: C Location: [place] [address] Anesthesia: Postop Eval I Current Vital Signs [...] Eval 1 completed: Yes 05/25/241317 Date Eloy Stacy Signature: Date CC: Signed Normal [facility] MR/[id number] 05-25-2024 [facility] Medical Records Department [address] [place] [address] Anesthesia Postop Eval II 05/25/24 1842 MR#: [id number] Acct: [id number] Name: BEATRICE BORREGO Rep #: [id number] : 1985 38 From: Herbert Hair MD PCP: Dr. Librado Ybarra, DO Status:[facility] Y Race: C Location: EN Anesthesia Postop [...] MD Cosigner Signature: Date CC: Signed Normal [facility] ,Urineon 05-25-2024 Beta HCG ( test) Ql (U) Negative Normal [facility] Comment on above: Result Comment: Very dilute urine specimens, as indicated by a low specific gravity, may not contain customer care representative levels of hCG. If is still suspected, a first morning urine specimen should be collected 48 hours later and tested. Performed By: #### L 500.4050, L100.0100 #### [facility] [place], [address] Special Stain Group Ion 02- Special Stain Group I ------- Patient Age/Sex Location Account Attending Physician BEATRICE BORREGO 38/ EN [id number] Erick Carnes DO Specimen: [id number] Received: 05/26/24 Status: ETHELIsela Danish Num: [id number] Spec Type: COLON BX Subm Dr: Erick Carnes DO HEADER OPERATION: Colonoscopy, EGD PRE-OP DIAGNOSIS: Routine [...] colon polyp, biopsy: Fragments of hyperplastic polyp. SJ.mr 05/27/2024 COMMENT B. The results of immunohistochemistry for Helicobacter pylori will be reported separately ([id number]). C. Alcian blue/PAS stain with matched control [...] labeled with the patient's name and designated "Duodenum biopsy." The specimen consists of two irregular fragments of light girard soft tissue that in aggregate measure 0.8 x 0.2 x 0.2 cm. The specimen is totally submitted in one cassette. Patient Age/Sex Location Account Attending Physician BEATRICE BORREGO 38/F EN [id number] Erick Carnes DO B. Received in fixative [...] the patient's name and designated Distal esophagus biopsy." The specimen consists of multiple irregular fragments [...] labeled with the patient's name and designated "Sigmoid polyp." The specimen consists of two irregular fragments of light girard soft tissue that in aggregate measure 0.8 x 0.3 x 0.2 cm. The specimen is totally submitted in one cassette. 05/26/2024 TC:1 CPT:03965h8,96669 Patient Age/Sex Location Account Attending Physician BEATRICE BORREGO/F BEAN [id number] Erick Carnes DO Signed (signature on file) Dr. Abdirahman Trinh MD 05/27/24 1338 Normal [facility] Comment on above: Performed By: #### P SSI ####[facility] [address] [place], [address] Gastroenterology Visit Repor ton 03-10-2024 Gastroenterology Visit Report [facility] Gastroenterology [address] [place] [address] OFFICE VISIT Date of Service: 03/10/24 MR#: [id number] Acct: [id number] Name: BEATRICE BORREGO Rep #: [id number] : 1985 Provider: LAVONNE Loja Age/Sex: 38/F Location: [facility] Status: Signed Intake Vital Signs 11/12/23 11:30 [...] house current occupational status: employed 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 Pt is here today to get [...] Const General: (more content not included)... Normal [facility] Final Surgical Pathology Rep [facility] 03-08-2024 Final Surgical Pathology Report . Pathology Reports Accession: Collected Date/Time: Received Date/Time: Pathologist: [id number] 03/03/2024 16:57 EST 03/05/2024 08:49 MASSIMO HERMOSILLO MD Final Surgical Pathology Report DIAGNOSIS: ENDOMETRIAL BIOPSY: - SECRETORY ENDOMETRIUM - NEGATIVE FOR HYPERPLASIA OR MALIGNANCY COMMENT: [facility] [id number] CLINICAL INFORMATION: MENORRHAGIA WITH REGULAR CYCLE SPECIMEN: A ENDOMETRIUM GROSS DESCRIPTION: All parts labelled with patient name and [id number] Received in formalin labeled undesignated are multiple girard-pink and hemorrhagic tissue fragments aggregating to 0.1 x 0.7 x 0.3 cm. Smallest fragments may not survive processing. TS-1 Gladis Presley, Grossing Plastic Surgery Assistant/ Dr. Neo Zaragoza, Pathologist Performed by Gladis Presley MICROSCOPIC DESCRIPTION: The microscopic examination is performed, except in the case of Gross Only. Electronically Signed by Pathology Report verified by [facility] MASSIMO RIVEROJOSE M Sign out Date: 03/08/2024 10:10 Performing Lab: [facility], [address] [place] [address] Pathology Dept Disclaimer If ancillary studies were utilized, the following Laboratory Developed Test (LDT) disclaimer will apply: Under CLIA requirements, [facility] is qualified to perform high complexity testing. For all ancillary stains, positive and negative controls stain appropriately. Performance characteristics of immunohistochemical and chromogenic in-situ hybridization tests have been determined by [facility]. These tests are used for clinical purposes, They should not be regarded as investigational or for research. Normal [facility] Absolute lymphocyte counton 01-06-2022 Lymphocytes Auto (Unsp spec) [#/Vol] 3.59 10*3/uL 0.83-4.51 [facility] Work Phone: Basophil percentageon 2021 Basophils/100 WBC (Bld) 0.5 % 0-1 [facility] Work Phone: Chloride [Moles/Vol] 104 mmol/L 98-107 [facility] Work Phone: Eosinophils/100 WBC (Bld) 3.1 % 0-5 [facility] Work Phone: Glucose [Mass/Vol] 92 mg/dL 74-106 [facility] Work Phone: Neutrophils (Bld) [#/Vol] 5.0 10*3/uL 2.0-7.7 [facility] Work Phone: Neutrophils/100 WBC (Bld) 52.8 % 47-70 [facility] Work Phone: Potassium [Moles/Vol] 3.9 mmol/L 3.5-5.1 [facility] Work Phone: Sodium [Moles/Vol] 137 mmol/L 136-145 [facility] r [facility] Work Phone: WBC (Bld) [#/Vol] 9.5 10*3/uL 4.4-11.0 [facility] Work Phone: Beta hCG serum qualon 2021 Beta HCG ( test) Ql Negative [facility] Work Phone: [phone] Blood erythrocytes count (nu mber/volume)on 01-06-2022 RBC (Bld) [#/Vol] 4.89 10*6/uL 4.2-5.[address] [facility] Work Phone: [phone] Blood hemoglobin measurement (mass/volume)on 01-06-2022 Hemoglobin (Bld) [Mass/Vol] 14.7 g/dL 12.0-15.0 [facility] Work Phone: Blood lymphocytes/100 leukoc yteson 01-06-2022 Lymphocytes/100 WBC (Bld) 37.8 % 19-41 [facility] Work Phone: Blood monocytes/100 leukocyt eson 01-06-2022 Monocytes/100 WBC (Bld) 5.5 % 0-10 [facility] Work Phone: Blood platelet mean volumeon 01-06-2022 Platelet mean volume (Bld) [Entitic vol] 11.4 fL 6.2-12.0 [facility] Work Phone: [phone] Determination of erythrocyte mean corpuscular volume (MCV)on 01-06-2022 MCV (RBC) [Entitic vol] 91.6 fL 81-99 [facility] Work Phone: Hematocrit Auto (Bld) [Volum e fraction]on 01-06-2022 Hematocrit (Bld) [Volume fraction] 44.8 % 37-47 [facility] Work Phone: [phone] Laboratory - Chemistry and C hemistry - challengeon 01-06-2022 CO2 [Moles/Vol] 25.0 mmol/L 21.0-32.0 [facility] Work Phone: Urea nitrogen/Creatinine [Mass ratio] 19.7 mg/mg 10- [facility] Work Phone: Laboratory - Drug toxicology on 01-06-2022 Amphetamines Ql (U) Negative <1000 ng/mL [facility] Work Phone: Benzodiazepines Ql (U) Negative < 200 ng/mL [facility] Work Phone: Cannabinoids Screen Ql (U) Negative < 50 ng/mL [facility] Work Phone: Cocaine Ql (U) Negative < 300 ng/mL [facility] Work Phone: Opiates Ql (U) Negative < 300 ng/mL [facility] Work Phone: Laboratory - Hematology and Cell countson 01-06-2022 Erythrocyte distribution width (RBC) [Entitic vol] 40.2 fL 35.1-43.9 [facility] Work Phone: Erythrocyte distribution width (RBC) [Ratio] 12.0 % 11.6-14.6 [facility] Work Phone: Immature granulocytes/100 WBC (Bld) 0.300 % 0.0-0.9 [facility] Work Phone: Comment on above: IG% - Immature Granu locytes (promyelocytes, myelocytes and metamyelocytes) > 1% indicates that a LEFT SHIFT is Present. MCH (RBC) [Entitic mass] 30.1 pg 27.0-32.0 [facility] Work Phone: Nucleated RBC/100 WBC (Bld) [Ratio] 0 % 0-5 [facility] Work Phone: MCHC Auto (RBC) [Mass/Vol]on 01-06-2022 MCHC (RBC) [Mass/Vol] 32.8 g/dL 32-36 [facility] Work Phone: No Panel Informationon 01-06 Estimated Creatinine Clearance Calc 99.80 ml/min [facility] Work Phone: Estimated GFR (MDRD) Amer 129 mL/min >60 [facility] Work Phone: Comment on above: GFR Calc Estimated GFR (MDRD) Non-Af Amer 107 mL/min >60 [facility] Work Phone: Comment on above: Non- GFR Calc Ethyl Alcohol Level 7.0 mg/dL [facility] Work Phone: Comment on above: The serum:whole bloo d ethanol ratio is approximately 1.14and varies slightly with hematocrit. Medical Alcohol reference interval and critical value innon-tolerant individuals; 50 - 100 Impairment 100 Intoxication 100 - 250 Severe Poisoning 250 - 400 Deep/possible fatal coma MDMA (Ecstasy) Screen Negative < 500 ng/mL [facility] Work Phone: Urine Barbiturates Screen Negative < 200 ng/mL [facility] Work Phone: Urine Drug Screen Comment [facility] Work Phone: Comment on above: CONFIRMATORY [...] Methadone Screen Negative < 300 ng/mL [facility] Work Phone: Platelets bldon 01-06-2022 Platelets (Bld) [#/Vol] 187 10*3/uL 150-450 [facility] Work Phone: Serum or plasma calcium archana urement (mass/volume)on 01-06-2022 Calcium [Mass/Vol] 9.8 mg/dL 8.5-10.1 [facility] Work Phone: Serum or plasma creatinine m easurement (mass/volume)on 01-06-2022 Creatinine [Mass/Vol] 0.66 mg/dL 0.55-1.[address] [facility] Work Phone: Comment on above: The validity of the calculated GFR & GFRAA in patients over 70 years has not been determined. Clinical correlation is essential. Serum or plasma urea nitroge n measurement (mass/volume)on 01-06-2022 Urea nitrogen [Mass/Vol] 13 mg/dL 7-18 [facility] Work Phone: Thin prep Papanicolaou smear with manual screeningon 01-06-2022 Thin prep Papanicolaou smear with manual screening 8 5-15 [facility] Work Phone: Urine phencyclidine (PCP) de tectionon 01-06-2022 Phencyclidine Ql (U) Negative < 25 ng/mL [facility] Work Phone: Absolute lymphocyte counton 11-23-2021 Lymphocytes Auto (Unsp spec) [#/Vol] 2.81 10*3/uL 0.83-4.51 [facility] Work Phone: Absolute reticulocyte counto n 11-23-2021 Reticulocytes (Bld) [#/Vol] 0.00 10*3/uL 0-5 [facility] Work Phone: Basophil percentageon 2021 Basophil percentage 3.0 mg/dL 2.5-4.[address] [facility] Work Phone: Bilirubin [Mass/Vol] 0.70 mg/dL 0.20-1.00 [facility] Work Phone: Comment on above: For patients on eltr ombopag therapy, use of Dimension [place] TBIL is not recommended. Chloride [Moles/Vol] 105 mmol/L 98-107 [facility] Work Phone: Cholesterol [Mass/Vol] 240 mg/dL <200 [facility] Work Phone: Comment on above: <200 mg/dL Desirable 200-240 mg/dL Borderline >240 mg/dL High Risk Glucose [Mass/Vol] 88 mg/dL 74-106 [facility] Work Phone: [phone] Neutrophils (Bld) [#/Vol] 4.4 10*3/uL 2.0-7.7 [facility] Work Phone: [phone] Potassium [Moles/Vol] 4.1 mmol/L 3.5-5.1 [facility] Work Phone: [phone] Protein [Mass/Vol] 8.0 g/dL 6.4-8.2 [facility] Work Phone: [phone] Sodium [Moles/Vol] 136 mmol/L 136-145 [facility] Work Phone: [phone] Triglyceride [Mass/Vol] 136 mg/dL <199 [facility] Work Phone: Comment on above: The drugs N-Acetylcy steine and Metamizole may falsely depress this assay.Serum Triglycerides Reference Interval Normal <150 mg/dL Borderline high 150 - 199 mg/dL High 200 - 499 mg/dL Very High > or = 500 mg/dL WBC (Bld) [#/Vol] 8.0 10*3/uL 4.4-11.0 [facility] Work Phone: Bilirubin Test strip Ql (U)o n 11-23-2021 Bilirubin Ql (U) Negative Negative [facility] Work Phone: Blood erythrocytes count (nu mber/volume)on 11-23-2021 RBC (Bld) [#/Vol] 4.83 10*6/uL 4.2-5.[address] [facility] Work Phone: [phone] Blood hemoglobin measurement (mass/volume)on 11-23-2021 Hemoglobin (Bld) [Mass/Vol] 14.6 g/dL 12.0-15.0 [facility] Work Phone: [phone] Blood platelet mean volumeon 11-23-2021 Platelet mean volume (Bld) [Entitic vol] 11.4 fL 6.2-12.0 [facility] Work Phone: Determination of erythrocyte mean corpuscular volume (MCV)on 11-23-2021 MCV (RBC) [Entitic vol] 90.3 fL 81-99 [facility] Work Phone: [phone] Direct bilirubinon Bilirubin.direct [Mass/Vol] 0.11 mg/dL 0.00-0.30 [facility] Work Phone: Hematocrit Auto (Bld) [Volum e fraction]on 11-23-2021 Hematocrit (Bld) [Volume fraction] 43.6 % 37-47 [facility] Work Phone: [phone] Ketones Test strip Ql (U)on 11-23-2021 Ketones Ql (U) Negative Negative [facility] Work Phone: Laboratory - Chemistry and C hemistry - challengeon 11-23-2021 ALP [Catalytic activity/Vol] 57 U/L 45-117 [facility] Work Phone: [phone] ALT [Catalytic activity/Vol] 56 U/L 13-56 [facility] Work Phone: [phone] Cholesterol.total/Tatianna sterol in HDL [Mass ratio] 4.60 {ratio} [facility] Work Phone: [phone] CO2 [Moles/Vol] 25.0 mmol/L 21.0-32.0 [facility] Work Phone: [phone] Globulin (S) [Mass/Vol] 3.7 g/dL 2.2-4.2 [facility] Work Phone: [phone] Urea nitrogen/Creatinine [Mass ratio] 25.0 mg/mg 10-20 [facility] Work Phone: [phone] Laboratory - Hematology and Cell countson 11-23-2021 Erythrocyte distribution width (RBC) [Entitic vol] 40.6 fL 35.1-43.9 [facility] Work Phone: [phone] Erythrocyte distribution width (RBC) [Ratio] 12.3 % 11.6-14.6 [facility] Work Phone: [phone] MCH (RBC) [Entitic mass] 30.2 pg 27.0-32.0 [facility] Work Phone: [phone] Nucleated RBC/100 WBC (Bld) [Ratio] 0 % 0-5 [facility] Work Phone: [phone] MCHC Auto (RBC) [Mass/Vol]on 11-23-2021 MCHC (RBC) [Mass/Vol] 33.5 g/dL 32-[address] [facility] Work Phone: [phone] Nitrite Test strip Ql (U)on 11-23-2021 Nitrite Ql (U) Negative Negative [facility] Work Phone: [phone] No Panel Informationon 11-23 Estimated GFR (MDRD) Amer 134 mL/min >60 [facility] Work Phone: Comment on above: GFR Calc Estimated GFR (MDRD) Non-Af Amer 110 mL/min >60 [facility] Work Phone: Comment on above: Non- GFR Calc Platelets bldon 11-23-2021 Platelets (Bld) [#/Vol] 253 10*3/uL 150-450 [facility] Work Phone: [phone] Protein Test strip Ql (U)on 11-23-2021 Protein Ql (U) Negative Negative [facility] Work Phone: [phone] Segmented neutrophils/100 WB C Auto (Bld)on 11-23-2021 Segmented neutrophils/100 WBC (Bld) 55.3 % 47-70 [facility] Work Phone: [phone] Serum or plasma albumin archana urement (mass/volume)on 11-23-2021 Albumin [Mass/Vol] 4.3 g/dL 3.2-5.0 [facility] Work Phone: Serum or plasma albumin/glob ulin mass ratioon 11-23-2021 Albumin/Globulin [Mass ratio] 1.2 {ratio} 0.9-2.4 [facility] Work Phone: [phone] Serum or plasma calcium archana urement (mass/volume)on 11-23-2021 Calcium [Mass/Vol] 9.3 mg/dL 8.5-10.1 [facility] Work Phone: Serum or plasma cholesterol in HDL measurement (mass/volume)on 11-23-2021 Cholesterol in HDL [Mass/Vol] 52 mg/dL >40 [facility] Work Phone: Comment on above: The drugs N-Acetylcy steine and Metamizole may falsely depress this assay. Reference Range HDL <40 mg/dL Low HDL Cholesterol HDL >or= 60 mg/dL High HDL Cholesterol Serum or plasma cholesterol in VLDL measurement (mass/volume)on 11-23-2021 Cholesterol in VLDL [Mass/Vol] 27 mg/dL 5-40 [facility] Work Phone: Serum or plasma creatinine m easurement (mass/volume)on 11-23-2021 Creatinine [Mass/Vol] 0.64 mg/dL 0.55-1.[address] [facility] Work Phone: Comment on above: The validity of the calculated GFR & GFRAA in patients over 70 years has not been determined. Clinical correlation is essential. Serum or plasma low density lipoprotein (LDL) cholesterol measurement (mass/volume)on 11-23-2021 Cholesterol in LDL [Mass/Vol] 161 mg/dL 0-130 [facility] Work Phone: Serum or plasma urea nitroge n measurement (mass/volume)on 11-23-2021 Urea nitrogen [Mass/Vol] 16 mg/dL 7-18 [facility] Work Phone: Serum or plasma uric acid me asurement (mass/volume)on 11-23-2021 Urate [Mass/Vol] 6.2 mg/dL 2.6-6.0 [facility] Work Phone: Comment on above: The drugs N-Acetylcy steine and Metamizole may falsely depress this assay. Thin prep Papanicolaou smear with manual screeningon 11-23-2021 Thin prep Papanicolaou smear with manual screening 30 U/L 15-37 [facility] Work Phone: Thin prep Papanicolaou smear with manual screening 6 5-15 [facility] Work Phone: Thin prep Papanicolaou smear with manual screening 186 U/L 84-246 [facility] Work Phone: Urine blood detectionon 10-30 RBC Ql (U) 250 /ul Negative [facility] Work Phone: Urine clarityon 11-23-2021 Clarity (U) Clear Clear [facility] Work Phone: Urine color determinationon 11-23-2021 Color (U) Yellow Yellow [facility] Work Phone: Urine glucose detectionon Glucose Ql (U) Normal mg/dl Normal [facility] Work Phone: Urine leukocyte esterase det ection by dipstickon 11-23-2021 Leukocyte esterase Test strip Ql (U) 25 /ul Negative [facility] Work Phone: Urine pHon 11-23-2021 pH (U) 5.0 [pH] 5.0 - 8.0 [facility] Work Phone: Urine specific gravity measu rementon 11-23-2021 Specific gravity (U) [Rel density] 1.020 1.002-1.030 [facility] Work Phone: Urobilinogen Auto test strip Ql (U)on 11-23-2021 Urobilinogen Ql (U) Normal mg/dl Normal [facility] Work Phone: Laboratory - Microbiology an d Antimicrobial susceptibilityon 11-13-2021 SARS-CoV-2 (COVID-19) RNA JO ANN+probe Ql (Unsp spec) Negative Not Detect [facility] Work Phone: Comment on above: Normal [...] percentageon 2021 Basophil percentage Not Reportable [facility] Work Phone: Erythrocyte sedimentation ra paul 11-06-2021 ESR (Bld) [Velocity] 10 mm/h 0-30 [facility] Work Phone: Laboratory - Chemistry and C hemistry - challengeon 11-06-2021 Free T4 [Mass/Vol] 0.72 ng/dL 0.76-1.46 [facility] Work Phone: No Panel Informationon 11-06 Anti-Nuclear Antibody Screen Negative Negative [facility] Work Phone: Comment on above: Performed at: [place] [id number] Director: Dany White PhD, Phone: [phone] Centrome[employer] B Antibody Not Reportable [facility] Work Phone: MONOTYPE CASTER Antibody Not Reportable [facility] Work Phone: Thyroid Stimulating Hormone (TSH) 1.62 uIU/mL 0.358-3.74 [facility] Work Phone: Serum DNA double strand anti body assay (units/volume)on 11-06-2021 DNA double strand Ab Qn (S) Not Reportable [facility] Work Phone: Serum Nasima-1 antibody assay (u nits/volume)on 11-06-2021 Nasima-1 extractable nuclear Ab Qn (S) Not Reportable [facility] Work Phone: Serum Scl-70 extractable nuc lear antibody assay (units/volume)on 11-06-2021 SCL-70 extractable nuclear Ab Qn (S) Not Reportable [facility] Work Phone: Serum Galdamez extractable nucl ear antibody detectionon 11-06-2021 Galdamez extractable nuclear Ab Ql (S) Not Reportable [facility] Work Phone: Serum cyclic citrullinated p eptide IgG antibody assay (units/volume)on 11-06-2021 Cyclic citrullinated peptide IgG Qn 4 units 0-19 [facility] Work Phone: Comment on above: Negative <20 Weak po sitive 20 - 39 Moderate positive 40 - 59 Strong positive >59Performed at: - [facility] [address] [id number] Director: Jacinto Shea MD, Phone: [phone] Serum or plasma C reactive p rotein measurement (mass/volume)on 11-06-2021 CRP [Mass/Vol] mg/L 0.0-3.0 [facility] Work Phone: Comment on above: C-Reactive Protein ( CRP) provides useful information for thediagnosis, therapy and monitoring of inflammatory processesand associated diseases. For the evaluation of Relative Riskfor Cardiovascular Disease, a High Sensitivity CRP (HSCRP)should be ordered. Serum rheumatoid factor dete ctionon 11-06-2021 Rheumatoid factor Ql (S) < 10.0 IU/mL <15 [facility] Work Phone: No Panel Informationon 10-04 POC SARS CoV-2 Antigen Negative [facility] Work Phone: Basophil percentageon 2021 Bilirubin [Mass/Vol] 0.60 mg/dL 0.20-1.00 [facility] Work Phone: Comment on above: For patients on eltr ombopag therapy, use of Dimension [place] TBIL is not recommended. Protein [Mass/Vol] 8.0 g/dL 6.4-8.2 [facility] Work Phone: WBC (Bld) [#/Vol] 7.5 10*3/uL 4.4-11.0 [facility] Work Phone: Blood erythrocytes count (nu mber/volume)on 08-02-2021 RBC (Bld) [#/Vol] 4.87 10*6/uL 4.2-5.[address] [facility] Work Phone: [phone] Blood hemoglobin measurement (mass/volume)on 08-02-2021 Hemoglobin (Bld) [Mass/Vol] 14.7 g/dL 12.0-15.0 [facility] Work Phone: Blood platelet mean volumeon 08-02-2021 Platelet mean volume (Bld) [Entitic vol] 10.6 fL 6.2-12.0 [facility] Work Phone: [phone] Determination of erythrocyte mean corpuscular volume (MCV)on 08-02-2021 MCV (RBC) [Entitic vol] 86.7 fL 81-99 [facility] Work Phone: Direct bilirubinon Bilirubin.direct [Mass/Vol] 0.17 mg/dL 0.00-0.30 [facility] Work [phone] Hematocrit Auto (Bld) [Volum e fraction]on 08-02-2021 Hematocrit (Bld) [Volume fraction] 42.2 % 37-47 [facility] Work Phone: [phone] INR in Blood by Coagulation assayon 08-02-2021 INR Coag (Bld) [Relative time] 1.1 {INR} [facility] Work Phone: [phone] Laboratory - Chemistry and C hemistry - challengeon 08-02-2021 ALP [Catalytic activity/Vol] 55 U/L 45-117 [facility] Work Phone: ALT [Catalytic activity/Vol] 42 U/L 13-56 [facility] Work Phone: Globulin (S) [Mass/Vol] 3.6 g/dL 2.2-4.2 [facility] Work Phone: [phone] Laboratory - Coagulationon 0 08-02-2021 aPTT Coag (Bld) [Time] 34.3 s 24.1-36.2 [facility] Work Phone: PT Coag (PPP) [Time] 13.4 s 11.7-14.9 [facility] Work Phone: Laboratory - Hematology and Cell countson 08-02-2021 Erythrocyte distribution width (RBC) [Entitic vol] 38.4 fL 35.1-43.9 [facility] Work Phone: Erythrocyte distribution width (RBC) [Ratio] 12.2 % 11.6-14.6 [facility] Work Phone: MCH (RBC) [Entitic mass] 30.2 pg 27.0-32.0 [facility] Work Phone: MCHC Auto (RBC) [Mass/Vol]on 08-02-2021 MCHC (RBC) [Mass/Vol] 34.8 g/dL 32-[address] [facility] Work Phone: Platelets bldon 08-02-2021 Platelets (Bld) [#/Vol] 163 10*3/uL 150-450 [facility] Work Phone: Serum or plasma albumin archana urement (mass/volume)on 08-02-2021 Albumin [Mass/Vol] 4.4 g/dL 3.2-5.0 [facility] Work Phone: Thin prep Papanicolaou smear with manual screeningon 08-02-2021 Thin prep Papanicolaou smear with manual screening 22 U/L 15-37 [facility] Work Phone: Serum or plasma cortisol zak surement (mass/volume)on 07-28-2021 Cortisol [Mass/Vol] 23.80 ug/dL 3.44-22.45 [facility] Work Phone: Comment on above: Adult (AM) 5.27 - 22 .45 ug/dL Adult (PM) 3.44 - 16.76 ug/dLPlease note revised CORTISOL reference range effective 2019. Laboratory - Chemistry and C hemistry - challengeon 07-25-2021 Free T4 [Mass/Vol] 0.76 ng/dL 0.76-1.46 [facility] Work Phone: No Panel Informationon 07-25 Dehydroepiandrosterone Sulfate 118.0 ug/dL 57.3-279.2 [facility] Work Phone: Free Triiodothyronine (T3) pg/dL 2.8 pg/mL 2.18-3.98 [facility] Work Phone: Reverse Triiodothyronine (T3) 12.6 ng/dL 9.2-24.1 [facility] Work Phone: Comment on above: This test was develo ped and its performance characteristicsdetermined by [employer]. It has not been cleared orapproved by the Food and Drug Administration.Performed at: [facility] [address] [id number] Director: Dany White PhD, Phone: [phone] at: [facility] [address] [id number] Director: Jacinto Shea MD, Phone: [phone] Thyroid Stimulating Hormone (TSH) 1.29 uIU/mL 0.358-3.74 [facility] Work Phone: Total Triiodothyronine 1.10 ng/mL 0.6-1.81 [facility] Work Phone: Serum or plasma cortisol zak surement (mass/volume)on 07-25-2021 Cortisol [Mass/Vol] 2.80 ug/dL 3.44-22.[address] [facility] Work Phone: Comment on above: Adult (AM) 5.27 - 22 .45 ug/dL Adult (PM) 3.44 - 16.76 ug/dLPlease note revised CORTISOL reference range effective 2019. Laboratory - Microbiology an d Antimicrobial susceptibilityon 03-26-2021 SARS-CoV-2 (COVID-19) RNA JO ANN+probe Ql (Unsp spec) Detected Not Detect [facility] Work Phone: Comment on above: Normal Reference Ran ge: Not DetectedMethod:(RT-PCR) real-time reverse transcriptase PCRLuAzure [employer]*The Food and Drug Administration (FDA) has [...] 162.[address] Librado Ybarra Work Phone: [facility] Work Phone: 01-06-2022 13:46-0400 Body mass index (BMI) [Ratio] 37.4 kg/m2 Dr. Librado Ybarra Work Phone: [facility] Work Phone: 01-06-2022 13:46-0400 Body temperature 97.6 [degF] Dr. Librado Ybarra Work Phone: [facility] Work Phone: 01-06-2022 13:46-0400 Body weight [address] Librado Ybarra Work Phone: [facility] Work Phone: 01-06-2022 13:46-0400 Diastolic blood pressure 109 mm[Hg] Dr. Librado Ybarra Work Phone: [facility] Work Phone: 01-06-2022 13:46-0400 Heart rate 76 /min Dr. Librado Ybarra Work Phone: [facility] Work Phone: 01-06-2022 13:46-0400 Respiratory rate 18 /min Dr. Librado Ybarra Work Phone: [facility] Work Phone: 01-06-2022 13:46-0400 SaO2% (BldA) [Mass fraction] 99 % Dr. Librado Ybarra Work Phone: [facility] Work Phone: 01-06-2022 13:46-0400 Systolic blood pressure 159 mm[Hg] Dr. Librado Ybarra Work Phone: [facility] Work Phone: 10-04-2021 17:24-0400 Body temperature 98.8 [degF] Dr. Librado Ybarra Work Phone: [facility] Work Phone: 10-04-2021 17:24-0400 Diastolic blood pressure 78 mm[Hg] Dr. Librado Ybarra Work Phone: [facility] Work Phone: 10-04-2021 17:24-0400 Heart rate 78 /min Dr. Librado Ybarra Work Phone: [facility] Work Phone: 10-04-2021 17:24-0400 Respiratory rate 14 /min Dr. Librado Ybarra Work Phone: [facility] Work Phone: 10-04-2021 17:24-0400 Systolic blood pressure 120 mm[Hg] Dr. Librado Ybarra Work Phone: [facility] Work Phone: 06-17-2021 10:12-0400 Respiratory rate 16 /min [facility] Work Phone: 06-17-2021 08:31-0400 Body height 162.56 cm [facility] Work Phone: 06-17-2021 08:31-0400 Body mass index (BMI) [Ratio] 35.5 kg/m2 [facility] Work Phone: 06-17-2021 08:31-0400 Body temperature 97.2 [degF] [facility] Work Phone: 06-17-2021 08:31-0400 Body weight 94 kg [facility] Work Phone: 06-17-2021 08:31-0400 Diastolic blood pressure 63 mm[Hg] [facility] Work Phone: 06-17-2021 08:31-0400 Heart rate 82 /min [facility] Work Phone: 06-17-2021 08:31-0400 SaO2% (BldA) [Mass fraction] 95 % [facility] Work Phone: 06-17-2021 08:31-0400 Systolic blood pressure 132 mm[Hg] [facility] Work Phone: 03-30-2021 12:45-0500 Body temperature 99 [degF] [facility] Work Phone: 03-30-2021 12:45-0500 Diastolic blood pressure 84 mm[Hg] [facility] Work Phone: 03-30-2021 12:45-0500 Heart rate 73 /min [facility] Work Phone: 03-30-2021 12:45-0500 Respiratory rate 16 /min [facility] Work Phone: 03-30-2021 12:45-0500 SaO2% (BldA) [Mass fraction] 99 % [facility] Work Phone: 03-30-2021 12:45-0500 Systolic blood pressure 129 mm[Hg] [facility] Work Phone: 03-30-2021 11:16-0500 Body mass index (BMI) [Ratio] 36 kg/m2 [facility] Work Phone: 03-30-2021 11:16-0500 Body weight 95.25 kg [facility] Work Phone: Encounters Encounter Date Encounter Type Care Provider Facility Start: 02-07-2025 ambulatory Librado Ybarra Facility: [facility] Start: 01-25-2025 ambulatory Mony Zamudioadarsh [facility] Start: 01-25-2025 End: 01-25-2025 Evaluation and management of inpatient Librado Ybarra Facility:[facility] Start: 01-21-2025 End: 01-21-2025 ambulatory Librado Ybarra Facility:[facility] Start: 01-18-2025 Encounter for other preprocedural examination Mony Cisneros [facility] Start: 01-18-2025 ambulatory Tc Cottrell Facility:[facility] Start: 01-18-2025 End: 01-18-20[facility] Start: 01-17-2025 ambulatory Librado Ybarra [facility]: [facility] Start: 12-21-2024 End: 12-21-2024 ambulatory Librado Ybarra [facility] Start: 12-21-2024 End: 12-21-2024 ambulatory Mony Cisneros Facility:[facility] Start: 12-06-2024 ambulatory Librado Ybarra [facility]: [facility] Start: 10-22-2024 End: 10-22-2024 ambulatory Librado Ybarra Facility:[facility] Start: 10-05-2024 End: 10-05-2024 ambulatory Hali Ruiz Facility:[facility] Start: 10-05-2024 End: 10-05-2024 [facility] Start: 09-30-2024 End: 09-30-2024 ambulatory Hali Atanasov Facility:[facility] Start: 09-29-2024 End: 09-29-2024 [facility] Start: 08-31-2024 End: 08-31-2024 ambulatory [facility] Facility:[facility] Start: 08-10-2024 End: 08-10-2024 [facility] Start: 07-20-2024 End: 07-20-2024 Emergency department patient visit Librado Tate Facility:[facility] Start: 07-19-2024 End: 07-19-2024 ambulatory Librado Ybarra Facility:[facility] Start: 07-13-2024 End: 07-13-2024 ambulatory Librado Ybarra [facility] Start: 06-16-2024 End: 06-16-2024 ambulatory MELISSA JAI [facility] Start: 06-16-2024 End: 06-16-2024 Subsequent hospital visit by physician Melissa Vergara APRN-STUDIO OPERATIONS MANAGER Work Phone: [facility] Comment on above: Pre-employment healt h screening examination (Primary Dx) Start: 06-16-2024 End: 06-16-2024 ambulatory Raphael Kidd Facility:[facility] Start: 06-15-2024 End: 06-15-2024 ambulatory Hali Ruiz Facility:[facility] Start: 06-09-2024 ambulatory [facility] Start: 06-03-2024 ambulatory [facility] Start: 05-31-2024 End: 05-31-2024 ambulatory [facility]ibrado [facility] Start: 05-28-2024 ambulatory [facility] Start: 05-28-2024 Encounter for other preprocedural examination [facility] Start: 05-25-2024 End: 05-25-2024 ambulatory [facility] Facility:[facility] Start: 05-11-2024 ambulatory Raphael Kidd Facility :[facility] Start: 03-10-2024 End: 03-10-2024 ambulatory Hali Ruiz Facility:[facility] Start: 03-04-2024 End: 03-04-2024 ambulatory [facility] Start: 01-06-2022 End: 01-06-2022 Emergency department patient visit Dr. Librado Ybarra Work Phone: [facility]Emergency Department Start: 01-03-2022 End: 01-03-[address] Librado Ybarra Work Phone: [facility] Work Phone: Start: 01-03-2022 End: 01-03-[address] Librado Ybarra Work Phone: [facility]-Radiology, [place] Start: 11-23-[address] Librado kenyon Work Phone: [facility] Start: 11-13-[address] Librado kenyon Work Phone: [facility] Start: 11-06-2021 End: 11-06-[address] Librado Ybarra Work Phone: [facility]Laboratory Start: 10-04-2021 End: 10-04-[address] 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 Off Start: 07-28-2021 End: 07-28-2021 Patient encounter procedure [facility] Start: 07-25-2021 End: 07-25-2021 Patient encounter procedure [facility]Laboratory, [place] financial sales consultant Off Start: 06-30-2021 End: 06-30-2021 Patient encounter procedure [facility]Ultrasound, [facility] Start: 06-17-2021 End: 06-17-2021 Emergency department patient visit [facility]Emergency Department Start: 05-23-2021 End: 05-23-2021 Patient encounter procedure [facility]Laboratory, Specimen Start: 03-30-2021 End: 03-30-2021 Patient encounter procedure [facility]-Medical Surgical 3 Outp Start: 03-26-2021 [facility] Procedures Date Procedure Procedure Detail Performing Clinician Start: 06-16-2024 Hepatitis b surf ant ibody hbsab Melissa Vergara 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 Librado Ybarra Work Phone: Start: 06-30-2021 US scan of thyroid Start: 06-17-2021 X-ray of cervical spine Start: 06-17-2021 Plain X-ray of clavicle Viral antigen assay Dr. Librado Ybarra Work Phone: Plan of Treatment Date Care Activity Detail Author Start: 11-30-2023 COVID-19 (2023- 5 season) COVID-19 (2023- season) [facility] Start: 11-30-2023 FLU (#1) FLU (#1) [facility] Start: 01-06-2022 Referral to service [facility] Work Phone: Start: 01-06-2022 End: 01-06-2022 Suicide precautions [facility] Work Phone: Start: 12-27-2002 Hepatitis B (1 of 3 - 19+ 3-dose series) Hepatitis B (1 of 3 - 19+ 3-dose series) [facility] Start: 1999 MenB (1 of 2 - MenB 2-Dose Series Bexsero) MenB (1 of 2 - MenB 2-Dose Series Bexsero) [facility] Start: 12-27-1990 Tetanus Diphtheria a nd Pertussis Vaccines (1 - Tdap) Tetanus Diphtheria and Pertussis Vaccines (1 - Tdap) [facility] Start: 12-27-1984 MMR (1 of 1 - Standa rd series) MMR (1 of 1 - Standard series) [facility] Patient Education [facility] Work Phone: Patient referral [facility] Work Phone: End: 06-16-2024 Quantiferon TB Gold [facility] Work Phone: Comment on above: For lab collect this frequency defaults to the next routine lab draw time. Routine times: 0600; 1100; 1400; 1900; 2200 for 1 Occurrences starting 06/16/2024 until 06/16/2024 Immunizations Immunization Date Immunization Notes Care Provider Patric hawkins 10-11-2021 measles, mumps and rubella virus vaccine Dr. Librado Ybarra Work Phone: [facility] Work Phone: 08-30-2021 measles, mumps and rubella virus vaccine Dr. Librado Ybarra Work Phone: [facility] Work Phone: 07-27-2020 Covid (Pfizer) Dr. Librado knox Work Phone: [facility] Work Phone: 07-02-2020 Covid (Pfizer) Dr. Librado knox Work Phone: [facility] Work Phone: 02-16-2020 influenza, seasonal, injectable Dr. Librado Ybarra Work Phone: [facility] Work Phone: 09-06-2019 tetanus toxoid, redu mukul diphtheria toxoid, and acellular pertussis vaccine, adsorbed [facility] [facility] Work [facility]: 12-24-2018 influenza, seasonal, injectable [facility] Work Phone: 04-01-2018 tetanus toxoid, redu mukul diphtheria toxoid, and acellular pertussis vaccine, adsorbed [facility] Work Phone: 01-12-2018 influenza, seasonal, injectable [facility] Work Phone: 02-06-2017 influenza, seasonal, injectable [facility] Work Phone: 02-15-2016 influenza, seasonal, injectable [facility] Work Phone: 12-29-2014 influenza, seasonal, injectable [facility] Work Phone: 12-29-2013 influenza, seasonal, injectable [facility] Work Phone: 03-08-2013 Influenza virus vaccine [facility] Work Phone: 03-08-2013 tetanus toxoid, redu mukul diphtheria toxoid, and acellular pertussis vaccine, adsorbed [facility] Work Phone: 11-19-1996 measles, mumps and rubella virus vaccine Dr. Librado Ybarra Work Phone: [facility] Work Phone: Payers Date Payer Category Payer Unknown [employer] Member Subscriber Plan / Payer (Effective 2024-2024) Name: Beatrice Borrego Relation to Subscriber: Self Name: Beatrice Borrego Payer ID: [id number] Group ID: Not on file Type: Not on file Address: [place] [id number] 2023 Self-pay [id number] 2023 Unknown [id number] 2016 Unknown [id number] 1985 Unknown [id number] 2.16.840.1.551172.3.579.2.651 1983 Unknown [id number] 2.16.840.1.585566.3.579.2.651 1983 Unknown [id number] 2.16.840.1.788834.3.579.2.651 1983 Unknown [id number] 2.16.840.1.773863.3.579.2.479 Unknown [id number] Unknown [id number] Unknown [id number] Unknown [id number] Unknown [facility] [employer] 0 [id number] Unknown [id number] Unknown [id number] 2.16.840.1.565250.3.579.2.462 Unknown [id number] 2.16.840.1.415893.3.579.2.462 Unknown [id number] 2.16.840.1.678014.3.579.2.462 Unknown [id number] 2.16.840.1.775733.3.579.2.462 Unknown [id number] 2.16.840.1.632645.3.579.2.462 Unknown [id number] 2.16.840.1.762732.3.579.2.462 Unknown [id number] 2.16.840.1.750601.3.579.2.462 Unknown [id number] 2.16.840.1.900253.3.579.2.462 Unknown [id number] 2.16.840.1.487592.3.579.2.462 Unknown [id number] 2.16.840.1.999218.3.579.2.462 Unknown [id number] 2.16.840.1.574240.3.579.2.462 Unknown [id number] 2.16.840.1.406057.3.579.2.462 Unknown [id number] 2.16.840.1.009473.3.579.2.462 Unknown [id number] 2.16.840.1.003562.3.579.2.462 Unknown [id number] 2.16.840.1.151506.3.579.2.462 Unknown [id number] 2.16.840.1.011330.3.579.2.462 Unknown [id number] 2.16.840.1.254650.3.579.2.462 Unknown [id number] 2.16.840.1.006067.3.579.2.462 Unknown [id number] 2.16.840.1.949562.3.579.2.462 Unknown [id number] 2.16.840.1.394499.3.579.2.462 Unknown [id number] 2.16.840.1.694016.3.579.2.462 Unknown [id number] 2.16.840.1.377757.3.579.2.462 Unknown [id number] 2.16.840.1.504640.3.579.2.462 Unknown [id number] 2.16.840.1.519193.3.579.2.462 Unknown [id number] 2.16.840.1.984556.3.579.2.462 Unknown [id number] 2.16.840.1.612010.3.579.2.462 Unknown [id number] 2.16.840.1.156589.3.579.2.462 Unknown [id number] 2.16.840.1.239465.3.579.2.462 Social History Date Type Detail Facility [facility] Work Phone: Start: 06-17-2021 End: 01-06-2022 Tobacco smoking status NDIS Unknown if ever smoked [facility] Work Phone: Start: 09-17-2019 None [facility] Work Phone: Start: 02-15-2019 With Family [facility] Work Phone: Start: 1985 Sex Assigned At Female [facility] Work Phone: Start: 1985 Sex assigned at Not on file [facility] Gender identity Not on file [facility] Goals Date Patient Goal Desired Activity /State Mental Status Date Assessment Result Facility 03-30-2021 Cognitive function Awake;Alert;A ppropriate;Fol lows Commands [facility] Work Phone: Clinical Note 01-17-2025 Note Date & Type Note Facility 01-17-2025 Note [facility] Medical Records Department [address] [place] [address] History Physical Exam 01/17/25 1736 MR#: [id number] Acct: [id number] Name: BEATRICE BORREGO Rep #: [id number] : 1985 39 From: Mony Cisneros MD PCP: Dr. 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 [facility] Clinical Note 05-25-2024 Note Date & Type Note Facility 05-25-2024 Note [facility] Medical Records Department [address] [place] [address] History Physical Exam 05/25/24 1157 MR#: [id number] Acct: [id number] Name: BEATRICE BORREGO Rep #: [id number] : 1985 38 From: Erick Friend DO PCP: Dr. Librado Ybarra, DO Status:[facility] Location: [place] [address] HPI - General General Date of Admission: 05/25/24 Date of Service: 05/25/24 Chief Complaint: family history of colon cancer and heartburn HPI Narrative BEATRICE BORREGO, is a 38 F who presents to the office today for establishment with [facility]. Pt is here today to get [...] was without abnormalities. 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 [facility] Progress note 07-20-2021 Note Date & Type Note Facility 10-17-2020 Note HNO ID: [id number] Author: Diana Cantor Service: ? Author Type: [...] October 17, 2020 1:37 PM [facility] Clinical Note 10-17-2020 Note Date & Type Note Facility 10-17-2020 Note Patient Outreach (NE TNAV) BEATRICE BORREGO ([id number]) 1985 F Date Time Provider Department 10/17/20 DIANA DELAROSA ([facility]) [place] During your visit today, we recorded the following information about you: Diana Delarosa [facility] 10/17/2020 1:38 PM Signed [employer]IGATION [...] by DIANA MEDEL on 10/17/20 [facility] Evaluation note Note Date & Type Note Facility Evaluation note No assessment information availa ble [facility] Work Phone: Evaluation note Note Date & Type Note Facility Evaluation note Diagnosis Onset Date Acute bronchitis, unspecified acute Encounter for screening labo ratory testing for COVID-19 virus acute [facility] Work Phone: Evaluation note Note Date & Type Note Facility Evaluation note Diagnosis Pre-employment health screening examination- Primary Health examination of defined subpopulation documented in this encounter [facility] Summary Purpose Family History No Family History Records Found Relationship Condition Age at Onset Recorded Date/T naldo mother Hypertension Unknown High blood cholesterol Unknown sister Disorder of thyroid Unknown Malignant neoplasm Unknown Advance Directives No Advanced Directives Records Found Advance Directive Response Recorded Date/ Time Advance Directives No October 25 3:18pm Living Will No June 17, 2021 8:39am Power of Supervisor [employer] No June 17 8:39am Advance Directive Response Recorded Date/ Time Advance Directives No October 25 3:18pm Living Will No January 06 2:01pm Power of Supervisor [employer] No January 06 022 2:01pm Chief Complaint [...] content) DATE CREATED AUTHOR 05/23/2021 [facility] DATE CREATED AUTHOR AUTHOR'S ORGANIZ ATION 03/11/2024 [facility] DATE CREATED AUTHOR AUTHOR'S ORGANIZ ATION 04/01/2024 [facility] DATE CREATED AUTHOR AUTHOR'S ORGANIZ ATION 06/12/2024 [facility] DATE CREATED AUTHOR AUTHOR'S ORGANIZ ATION 06/22/2024 [facility] DATE CREATED AUTHOR AUTHOR'S ORGANIZ ATION 01/26/2025 [facility] FOR RECORDS PERTAINING TO PATIENTS WHO [...] BE BASED ON THE PRIMARY CLINICAL RECORDS. [facility]. provides no warranty or guarantee of the accuracy or completeness of information in this document.
== END | disposition home or self-care (01) ==
LOC: US 12:32
PROVIDERS: PCP Family Medicine; Referring Provider Obstetrics & Gynecology; Visit Provider Obstetrics & Gynecology
DX: T14.8XXA Other injury of unspecified body region, initial encounter (principal)
CPT/HCPCS: 76830; 76856

== ENCOUNTER → 2025-01-27 | Outpatient (CLI) | payer OTHER, SELFPAY ==
[2025-01-27 12:29] LABS: Hematocrit 30.6 % (37-47); Hemoglobin 10.6 g/dL (12.0-15.0); Immature Granulocytes Count 0.080 X10^3/uL (0.0-0.0); Mean Corp Hgb Conc 34.6 g/dL (32-36); Mean Corpuscular Volume 86.9 fL (81-99); Mean Platelet Vol. 9.9 fl (6.2-12.0); NRBC Flagged by Analyzer 0 % (0-5); Platelet Count 320 K/mm3 (150-450); RBC Distribution Width CV 13.2 % (11.6-14.6); RBC Distribution Width SD 40.7 fl (35.1-43.9); Red Blood Count 3.52 M/mm3 (4.2-5.4); White Blood Count 11.3 K/mm3 (4.4-11.0)
== END | disposition home or self-care (01) ==
LOC: BWCLAB 12:01
PROVIDERS: Visit Provider Obstetrics & Gynecology
DX: T14.8XXA Other injury of unspecified body region, initial encounter (principal); R10.9 Unspecified abdominal pain; G89.18 Other acute postprocedural pain
CPT/HCPCS: 36415; 85025; 87070; 87205

== ENCOUNTER 2025-01-28 15:34 | Inpatient (IN) | payer OTHER, SELFPAY ==
[2025-01-28] VITALS (7 sets, daily range): BP systolic 115–150; BP diastolic 61–95; PULSE 93–106; RESP 16–20; TEMP 36.9–38.6; O2SAT 98–100; BMI 25.7; BMI 35.2
--- NOTE | 2025-01-28 15:41 | ED.VIS.GI ---
HPI HPI - GI History of Present Illness Chief Complaint: Constipation Informant: patient Abdominal Pain/Flank Pain Onset: Days Context: Gradual Onset Timing: Waxes and wanes Quality: Sharp and Stabbing Location: LLQ and - (Suprapubic area) Worsened by: - (Standing) Relieved by: Nothing Nausea/Vomiting/Emesis GI Symptom: Positive for Nausea; Negative for Vomiting Diarrhea/Melena/Hematochezia GI Symptom: Negative for Diarrhea, Melena or Hematochezia Associated Symptoms Associated Symptoms: Negative for Dysuria, Frequency or Hematuria Narrative Narrative: Patient presents with constipation for the past 3 days. Patient states she had a recent hysterectomy. Patient states she developed a hematoma over her lower abdomen. Patient admits to pain over her lower abdomen that is worse with standing. Patient describes it as sharp and stabbing. Patient states it is mainly over the left lower abdomen and suprapubic area. Patient states nothing seems to help with it. Patient states her last bowel movement was 3 days ago. Patient states that she gets lightheaded and dizzy at times. Patient has been taking analgesics with some relief. Patient is concerned that she may have developed a bowel obstruction. Patient admits to low-grade fevers of 100.0. Patient admits to some mild nausea but denies any vomiting. [facility] Medical History Hyperplasia of endometrium determined by biopsy Frequency of urination Back pain Colonoscopy planned Former smoker History of Holter monitoring Carpal tunnel syndrome Flu-like symptoms Vapes nicotine containing substance CPAP (continuous positive airway pressure) dependence Hypersomnia Major depressive disorder Encounter for screening laboratory testing for COVID-19 virus Acute bronchitis, unspecified Wears contact lenses Wears glasses Depression Anxiety Gastric reflux History of echocardiogram Cardiology follow-up encounter Hx of pilonidal cyst delivery delivered Home Medications ?Medication ?Instructions ?Recorded ?Last Taken ?Type Lactobacillus acidophilus 250 500 mmu cells PO DAILY 05/20/24 01/04/25 History million cell capsule (Probiotic Acidophilus) cholecalciferol (vitamin D3) 50 50 mcg PO DAILY 05/20/24 01/04/25 History mcg (2,000 unit) capsule (Vitamin D3) omega 7-ggh-jux-fish oil 1,200 mg 1 cap PO DAILY 05/20/24 01/04/25 History (144 mg-216 mg) capsule (Fish Oil) ibuprofen 200 mg tablet (Advil) 800 mg PO Q6H PRN pain 07/20/24 07/20/24 History cyclobenzaprine 10 mg tablet 10 mg PO TID PRN muscle spasm #30 07/27/24 Unknown Rx tabs omeprazole 40 mg capsule,delayed 40 mg PO BID 90 days #180 caps 08/11/24 01/18/25 05:30 Rx release ondansetron 4 mg disintegrating 4 mg PO Q8H PRN nausea and 09/30/24 Unknown Rx tablet vomiting #30 tabs mecobalamin (vitamin B12) 500 mcg 2,500 mcg PO DAILY 10/22/24 01/04/25 History chewable tablet bupropion HCl 150 mg 24 hr tablet, 150 mg PO QAM #90 TABLETS 12/06/24 01/18/25 05:30 Rx extended release escitalopram oxalate 10 mg tablet 15 mg (1.5 x 10 mg) PO QHS 90 days 12/06/24 01/17/25 20:30 Rx #135 tabs lorazepam 0.5 mg tablet 0.5 mg PO DAILY PRN anxiety #30 12/06/24 01/18/25 05:30 Rx tabs naproxen 500 mg tablet 500 mg PO BID PRN PRN Pain #30 tabs 01/21/25 Unknown Rx oxycodone-acetaminophen 5 mg-325 1 tab PO Q4H PRN pain 7 days #28 01/27/25 Unknown Rx mg tablet (Percocet) tabs Allergy/AdvReac Type Severity Reaction Status Date / Time citalopram hydrobromide Allergy Hives Verified 01/28/25 15:38 (From Celexa) Penicillins (PCN) Allergy Hives Verified 01/28/25 15:38 tetanus immune globulin Allergy Hives Verified 01/28/25 15:38 liraglutide (From Victoza) AdvReac Nausea/Vom/ Verified 01/28/25 15:38 Diarrhea morphine AdvReac Itching Verified 01/28/25 15:38 Family History Mother Hypertension High cholesterol Alcoholism Arthritis Depression Sister Thyroid cancer Depression Colon cancer Arthritis Autoimmune disorder Thyroid disorder Father Alcoholism Anxiety Depression Myocardial infarction Psychiatric care Grandfather Lung cancer Aunt Esophageal cancer Surgical History Status post bilateral salpingectomy S/P laparoscopic assisted vaginal hysterectomy (LAVH) H/O esophagogastroduodenoscopy H/O dilation and curettage History of hysteroscopy Previous section H/O repair of right rotator cuff History of appendectomy Hx of cholecystectomy History of tonsillectomy Social History household members: spouse and children housing: house number of children: 2 current occupational status: employed current occupation: [employer] pets and animals: Yes pets and animals: dog(s) Smoking Status: Former smoker alcohol intake: current substance use type: does not use what type of physical activity do you participate in: walking and weight training frequency: 3-4 times per week do you feel safe at home: Yes additional social history: Elias [facility]QUE [facility] ED Constitutional Constitutional ED: Reports chills, fever(s) and sweats Eyes Eyes: Denies blurry vision or change in vision ENT ENT ED: Denies rhinorrhea or sore throat Cardiovascular Cardiovascular: Denies chest pain or palpitations Respiratory/Chest Respiratory/Chest: Denies cough or dyspnea Gastrointestinal Gastrointestinal: Reports abdominal pain and constipation; Denies nausea or vomiting Genitourinary Genitourinary ED: Denies dysuria or hematuria Musculoskeletal Musculoskeletal: Denies back pain or neck pain Integumentary Denies abscess or rash Neurologic Neurologic: Reports headache(s); Denies weakness Allergic/Immunologic Allergic/Immunologic ED: Denies mouth swelling or urticaria EXAM Physical Exam Const Vital Signs: 01/28/25 15:35 Temperature 99.3 F H Temperature Source Oral Pulse Rate 96 Respiratory Rate 16 Blood Pressure 148/95 H Blood Pressure Mean 112 Pulse Ox 100 Oxygen Delivery Method Room Air Positive well nourished and well developed General Appearance ED: well developed and NAD HEENT Reports moist mucous membranes Neck supple and no JVD Resp normal respiratory effort and clear to auscultation bilaterally Cardio regular rate and regular rhythm GI non-distended GI Narrative: There is some ecchymosis over the left lower abdomen. There is no erythema or warmth. Surgical incisions are clean without erythema. There is no discharge or drainage. Palpation: soft and tender LLQ and suprapubic; Negative for guarding or rebound tenderness present Neuro CN's II-XII intact bilaterally, moves all extremities and no sensory deficits noted Sensorium / Orientation: alert Motor Exam: strength 5/5 throughout Psych mental status grossly normal and thought process normal MDM MDM MDM Narrative Medical decision making narrative: Differential diagnosis includes bowel obstruction, perforation, electrolyte abnormality, dehydration, medication side effect, urinary tract infection, and constipation. CBC will be obtained to assess for leukocytosis and anemia. Basic metabolic profile will be obtained to assess for electrolyte abnormality and renal function. Urinalysis will be obtained to assess for urinary tract infection and hematuria. CT scan of the abdomen and pelvis will be obtained to assess for bowel obstruction, perforation, abscess, and hematoma. History & Record Review Additional record(s) reviewed:: Prior outpatient record and Prior labs Discharge Plan Triage Chief Complaint: Constipation ED Provider: Kenney Salazar Dx/Rx/DC Orders Prescriptions: No Action mecobalamin (vitamin B12) 500 mcg tablet,chewable 2,500 mcg PO DAILY escitalopram oxalate 10 mg tablet 15 mg PO QHS 90 Days Qty: 135 1RF Rx Instructions: TAKE 1.5 TABLET BY MOUTH ONCE DAILY bupropion HCl 150 mg tablet extended release 24 hr 150 mg PO QAM Qty: 90 1RF lorazepam 0.5 mg tablet 0.5 mg PO DAILY PRN (Reason: anxiety) Qty: 30 1RF naproxen 500 mg tablet 500 mg PO BID PRN PRN (Reason: Pain) Qty: 30 1RF oxycodone-acetaminophen [Percocet] 5-325 mg tablet 1 tab PO Q4H PRN (Reason: pain) 7 Days Qty: 28 0RF omega 4-qtb-wiz-fish oil [Fish Oil] 1,200 (144-216) mg capsule 1 cap PO DAILY Probiotic Acidophilus 250 million cell capsule 500 mmu cells PO DAILY cholecalciferol (vitamin D3) [Vitamin D3] 50 mcg (2,000 unit) capsule 50 mcg PO DAILY ibuprofen [Advil] 200 mg tablet 800 mg PO Q6H PRN (Reason: pain) cyclobenzaprine 10 mg tablet 10 mg PO TID PRN (Reason: muscle spasm) Qty: 30 2RF omeprazole 40 mg capsule,delayed release(DR/EC) 40 mg PO BID 90 Days Qty: 180 3RF ondansetron 4 mg tablet,disintegrating 4 mg PO Q8H PRN (Reason: nausea and vomiting) Qty: 30 2RF Primary Care Provider: Librado Ybarra Referrals: Librado Ybarra DO [Primary Care Provider, Family Practice] Print Language: Gabonese
--- NOTE | 2025-01-28 15:59 | CT_ITS ---
PROCEDURE: CT/Abdomen/Pelvis W IV Cont ONLY
[2025-01-28] MEDS: 0.9% Normal Saline (1000mL) 1,000 ML 1000 ML IV (16:12)
[2025-01-28 16:24] LABS: Mucous, Urine 0 SEEN /hpf (<or=2+)
[2025-01-28 16:26] LABS: Hematocrit 30.1 % (37-47); Hemoglobin 10.4 g/dL (12.0-15.0); Immature Granulocytes Count 0.060 X10^3/uL (0.0-0.0); Mean Corp Hgb Conc 34.6 g/dL (32-36); Mean Corpuscular Volume 86.7 fL (81-99); Mean Platelet Vol. 9.9 fl (6.2-12.0); NRBC Flagged by Analyzer 0 % (0-5); Platelet Count 312 K/mm3 (150-450); RBC Distribution Width CV 13.0 % (11.6-14.6); RBC Distribution Width SD 40.1 fl (35.1-43.9); Red Blood Count 3.47 M/mm3 (4.2-5.4); White Blood Count 9.7 K/mm3 (4.4-11.0)
[2025-01-28 16:56] LABS: Anion Gap 10 (5-15); BUN 7 mg/dL (4-19); BUN/Creat Ratio 11.3 RATIO (10-20); Calcium,Total 9.2 mg/dL (7.6-11.0); Carbon Dioxide 26.9 mmol/L (21.0-32.0); Chloride 100 mmol/L (98-108); Estimated Creatinine Clearance 117.03 ml/min (50-250); Glucose 111 mg/dL (70-99); Potassium 3.5 mmol/L (3.3-5.1)
[2025-01-28 17:14] LABS: Color, Urine Yellow (Yellow); Glucose, Dipstick Normal (Normal); Ketone-Dipstick Negative (Negative); Leukocyte Esterase-Dipstick Negative /ul (Negative); Nitrite-Dipstick Negative (Negative); Occult Blood-Urine 10 /ul (Negative); Protein-Dipstick Negative (Negative); Specific Gravity, Urine 1.010 (1.002-1.030); Urine Bilirubin Dipstick Negative (Negative)
[2025-01-28 18:14] LABS: Squamous Epithelial Cells - UA 0-5 SEEN /hpf (5-10)
[2025-01-28 18:16] LABS: Red Blood Cells-Urine 0-5 SEEN /hpf (0-5)
[2025-01-28] MEDS: DiphenhydrAMINE 50 MG/ML Syringe 25 MG IV ×2 (18:23→19:45)
--- NOTE | 2025-01-28 18:59 | PCM.HP.STD ---
HPI - General HPI Narrative KALA ONEILL, is a 39 F who presents with elevated temp 100 at home, reduce bowel function and persistent abdominal discomfort. patient had been [place] yesterday and had a pelvic ultrasound, showed stable hematoma at the time, was afebrile and cbc stable. today, now temp in ED 101.[address] showing pelvic abscess formation of hematoma. [facility] Medical History Hyperplasia of endometrium determined by biopsy Frequency of urination Back pain Colonoscopy planned Former smoker History of Holter monitoring Carpal tunnel syndrome Flu-like symptoms Vapes nicotine containing substance CPAP (continuous positive airway pressure) dependence Hypersomnia Major depressive disorder Encounter for screening laboratory testing for COVID-19 virus Acute bronchitis, unspecified Wears contact lenses Wears glasses Depression Anxiety Gastric reflux History of echocardiogram Cardiology follow-up encounter Hx of pilonidal cyst delivery delivered Home Medications ?Medication ?Instructions ?Recorded ?Last Taken ?Type Lactobacillus acidophilus 250 500 mmu cells PO DAILY 05/20/24 01/04/25 History million cell capsule (Probiotic Acidophilus) cholecalciferol (vitamin D3) 50 50 mcg PO DAILY 05/20/24 01/04/25 History mcg (2,000 unit) capsule (Vitamin D3) omega 8-uje-ngp-fish oil 1,200 mg 1 cap PO DAILY 05/20/24 01/04/25 History (144 mg-216 mg) capsule (Fish Oil) ibuprofen 200 mg tablet (Advil) 800 mg PO Q6H PRN pain 07/20/24 07/20/24 History cyclobenzaprine 10 mg tablet 10 mg PO TID PRN muscle spasm #30 07/27/24 Unknown Rx tabs omeprazole 40 mg capsule,delayed 40 mg PO BID 90 days #180 caps 08/11/24 01/18/25 05:30 Rx release ondansetron 4 mg disintegrating 4 mg PO Q8H PRN nausea and 09/30/24 Unknown Rx tablet vomiting #30 tabs mecobalamin (vitamin B12) 500 mcg 2,500 mcg PO DAILY 10/22/24 01/04/25 History chewable tablet bupropion HCl 150 mg 24 hr tablet, 150 mg PO QAM #90 TABLETS 12/06/24 01/18/25 05:30 Rx extended release escitalopram oxalate 10 mg tablet 15 mg (1.5 x 10 mg) PO QHS 90 days 12/06/24 01/17/25 20:30 Rx #135 tabs lorazepam 0.5 mg tablet 0.5 mg PO DAILY PRN anxiety #30 12/06/24 01/18/25 05:30 Rx tabs naproxen 500 mg tablet 500 mg PO BID PRN PRN Pain #30 tabs 01/21/25 Unknown Rx oxycodone-acetaminophen 5 mg-325 1 tab PO Q4H PRN pain 7 days #28 01/27/25 Unknown Rx mg tablet (Percocet) tabs Allergy/AdvReac Type Severity Reaction Status Date / Time citalopram hydrobromide Allergy Hives Verified 01/28/25 15:38 (From Celexa) Penicillins (PCN) Allergy Hives Verified 01/28/25 15:38 tetanus immune globulin Allergy Hives Verified 01/28/25 15:38 liraglutide (From Victoza) AdvReac Nausea/Vom/ Verified 01/28/25 15:38 Diarrhea morphine AdvReac Itching Verified 01/28/25 15:38 Family History Mother Hypertension High cholesterol Alcoholism Arthritis Depression Sister Thyroid cancer Depression Colon cancer Arthritis Autoimmune disorder Thyroid disorder Father Alcoholism Anxiety Depression Myocardial infarction Psychiatric care Grandfather Lung cancer Aunt Esophageal cancer Surgical History Status post bilateral salpingectomy S/P laparoscopic assisted vaginal hysterectomy (LAVH) H/O esophagogastroduodenoscopy H/O dilation and curettage History of hysteroscopy Previous section H/O repair of right rotator cuff History of appendectomy Hx of cholecystectomy History of tonsillectomy Social History household members: spouse and children housing: house number of children: 2 current occupational status: employed current occupation: [employer] Childrens pets and animals: Yes pets and animals: dog(s) Smoking Status: Former smoker alcohol intake: current substance use type: does not use what type of physical activity do you participate in: walking and weight training frequency: 3-4 times per week do you feel safe at home: Yes additional social history: Elias DUQUE Constitutional Constitutional: Reports systems reviewed and no addt'l complaints, except as documented; Denies as per HPI Eyes Eyes: Reports systems reviewed and no addt'l complaints, except as documented; Denies as per HPI or other ENT HEENT: Reports systems reviewed and no addt'l complaints, except as documented Respiratory/Chest Respiratory/Chest: Reports systems reviewed and no addt'l complaints, except as documented Gastrointestinal Gastrointestinal: Reports systems reviewed and no addt'l complaints, except as documented and as per HPI Genitourinary Genitourinary: Reports as per HPI Musculoskeletal Musculoskeletal: Reports systems reviewed and no addt'l complaints, except as documented Neurologic Neurologic: Reports systems reviewed and no addt'l complaints, except as documented Psychiatric Psychiatric: Reports systems reviewed and no addt'l complaints, except as documented Endocrine Endocrinology: Reports systems reviewed and no addt'l complaints, except as documented Hematologic/Lymphatic Hematologic/Lymphatic: Reports systems reviewed and no addt'l complaints, except as documented Vital Signs Vital Signs Vital Signs: 01/28/25 15:35 01/28/25 15:38 01/28/25 16:38 Temperature 99.3 F H 99.3 F H 99 F Temperature Source Oral Oral Oral Pulse Rate 96 95 98 Respiratory Rate 16 16 16 Blood Pressure 148/95 H 148/95 H 136/75 H Blood Pressure Mean 112 112 95 Pulse Ox 100 98 99 Oxygen Delivery Method Room Air Room Air Room Air 01/28/25 17:00 01/28/25 18:00 Temperature 99 F 101.5 F H Temperature Source Oral Oral Pulse Rate 93 98 Respiratory Rate 16 16 Blood Pressure 135/61 H 115/80 Blood Pressure Mean 85 91 Pulse Ox 98 100 Oxygen Delivery Method Room Air Room Air Weight Weight: 150 lb 4 oz Body Mass Index (BMI) 25.7 Physical Exam Const alert, oriented x3 and no apparent distress HEENT normocephalic Head and Scalp: atraumatic Eyes EOMs intact bilaterally and conjunctivae normal Neck full ROM, no lymphadenopathy, supple and thyroid normal General: trachea midline Lymph Lymphatic: no lymphadenopathy noted Resp normal respiratory effort, no retractions, no use of accessory muscles and clear to auscultation bilaterally Cardio regular rhythm GI soft to palpation, non-distended and no masses GI Narrative: tender to palpation in general, ecchymoses over incisions stable Inspection: Negative for abdominal distention Extremity normal to inspection Skin no rashes or lesions noted Neuro moves all extremities Psych mental status grossly normal Results Lab / Micro Data 01/28/25 16:10 01/28/25 16:10 Labs: Laboratory Results - last 24 hr 01/28/25 16:10: WBC 9.7, RBC 3.47 L, Hgb 10.4 L, Hct 30.1 L, MCV 86.7, MCH 30.0, MCHC 34.6, RDW Std Deviation 40.1, RDW Coeff of Tania 13.0, Plt Count 312, MPV 9.9, Immature Gran % (Auto) 0.600, Neut % (Auto) 75.4 H, Lymph % (Auto) 13.2 L, [place] % (Auto) 6.8, Eos % (Auto) 3.6, Baso % (Auto) 0.4, Absolute Neuts (auto) 7.3, Absolute Lymphs (auto) 1.28, Nucleated RBC % 0, Sodium 137, Potassium 3.5, Chloride 100, Carbon Dioxide 26.9, Anion Gap 10, BUN 7, Creatinine 0.60 L, Estim Creat Clear Calc 117.03, Est GFR (MDRD) Non-Af 116, BUN/Creatinine Ratio 11.3, Glucose 111 H, Calcium 9.2 01/28/25 16:19: Urine Color Yellow, Urine Clarity Clear, Urine pH 8.0, Ur Specific [place] 1.010, Urine Protein Negative, Urine Glucose (UA) Normal, Urine Ketones Negative, Urine Occult Blood 10 H, Urine Nitrite Negative, Urine Bilirubin Negative, Urine Urobilinogen Normal, Ur Leukocyte Esterase Negative, Urine RBC 0-5 SEEN, Urine WBC 0-5 SEEN, Ur Squamous Epith Cells 0-5 SEEN, Urine Bacteria 0 SEEN, Urine Mucus 0 SEEN Imaging Radiology Impression Abdomen/Pelvis CT 01/28/25 15:59 IMPRESSION: Status post recent hysterectomy. Increased size of heterogeneous loculated and more organized fluid collections with internal foci of gas within the surgical bed in the pelvis with increased surrounding inflammatory fat stranding/edema; suspect surgical site infection with abscess development. Reading Location: [id number] Assessment & Plan Assessment/Plan (1) Postoperative abscess of pelvis in female: (2) Postoperative abdominal pain: (3) Postoperative hematoma: PLAN: Plan admit, dicsussed with patient will give ceftriaxone and metronidazole, reviewed allergy history. plan IV antibiotics ovrenight and then abscess drainage laparoscopically in am. keep NPO. scds.
[2025-01-28] MEDS: Clindamycin 900 MG/50 ML BAG 75 MG IV (19:37)
[2025-01-28] MEDS: 0.9% Normal Saline (1000mL) 1,000 ML 999 ML IV (20:51)
[2025-01-28] MEDS: HYDROmorphone 0.5 MG/0.5 ML SYRINGE IV (21:16)
[2025-01-28] MEDS: Ceftriaxone 2 GM in 0.9% Normal Saline (50mL MB+) 50 ML IV (21:17)
[2025-01-28] MEDS: Lactated Ringers 1,000 ML 150 ML IV (22:26)
[2025-01-28] MEDS: LACTATED RINGERS 500 ML 999 ML IV (23:00)
[2025-01-28] MEDS: 0.9% Normal Saline (250mL Bag) 250 ML 15 ML IV (23:24)
[2025-01-28] MEDS: metroNIDAZOLE 500 MG/100 ML BAG 100 MG IV (23:25)
[2025-01-29] VITALS (25 sets, daily range): BP systolic 95–142; BP diastolic 48–72; PULSE 76–127; RESP 15–18; TEMP 36.7–39.4; O2SAT 93–100; BMI 35.3
--- NOTE | 2025-01-29 01:37 | EKG12_ITS ---
Test Reason : PRE-OP
[2025-01-29] MEDS: 0.9% Saline Lock 10 ML Syringe IV ×2 (02:14→10:39)
[2025-01-29 03:05] LABS: Hematocrit 24.5 % (37-47); Hemoglobin 8.3 g/dL (12.0-15.0); Immature Granulocytes Count 0.080 X10^3/uL (0.0-0.0); Mean Corp Hgb Conc 33.9 g/dL (32-36); Mean Corpuscular Volume 87.2 fL (81-99); Mean Platelet Vol. 10.0 fl (6.2-12.0); NRBC Flagged by Analyzer 0 % (0-5); Platelet Count 255 K/mm3 (150-450); RBC Distribution Width CV 13.0 % (11.6-14.6); RBC Distribution Width SD 40.9 fl (35.1-43.9); Red Blood Count 2.81 M/mm3 (4.2-5.4); White Blood Count 11.3 K/mm3 (4.4-11.0)
[2025-01-29 04:20] LABS: AST(SGOT) 20 U/L (<=31); Alanine Aminotransfer ALT/SGPT 26 U/L (<=34); Albumin, Serum 3.4 g/dL (3.5-5.0); Alkaline Phosphatase 68 U/L (35-104); Anion Gap 9 (5-15); BUN 6 mg/dL (4-19); BUN/Creat Ratio 11.8 RATIO (10-20); Calcium,Total 8.3 mg/dL (7.6-11.0); Carbon Dioxide 22.2 mmol/L (21.0-32.0); Chloride 103 mmol/L (98-108); Estimated Creatinine Clearance 151.94 ml/min (50-250); Globulin 2.7 g/dL (2.2-4.2); Glucose 104 mg/dL (70-99); Potassium 3.5 mmol/L (3.3-5.1)
--- NOTE | 2025-01-29 04:50 | PCM.PRE.AN2 ---
ASA Classification* ASA Classification ASA Classification: 2 and E Assessment & Plan Anesthesia* Anesthesia Assessment Anesthesia Assessment: Discussed sedation and/or anesthesia options, risks, benefits, and alternatives with patient/parents/legal guardian/POA. Questions invited. The patient/parents/legal guardian/POA seems to understand and agrees to proceed with anesthesia plan. Reviewed the physical assessment, medical history, allergy history and patient home medications list prior to surgery/procedure/anesthetic and documented any changes. Performed airway and anesthesia risk assessments. Anesthesia Type Anesthesia Type: General Anesthesia Focused Assessment* Temperature: 98.2 F Pulse Rate: 106 Blood Pressure: 117/66 Respiratory Rate: 18 Pulse Ox: 93 Airway Assessment Mouth opens: >3 cm Mallampati Score: II Labs Anesthesia Preop lab: CBC WBC, (4.4-11.0) 11.3 K/mm3 H Today, 02:58 RBC, (4.2-5.4) 2.81 M/mm3 L Today, 02:58 Hgb, (12.0-15.0) 8.3 g/dL L Today, 02:58 Hct, (37-47) 24.5 % L Today, 02:58 Plt Count, (150-450) 255 K/mm3 Today, 02:58 CHEMISTRY Potassium, (3.3-5.1) 3.5 mmol/L Today, 02:58 Sodium, (133-145) 134 mmol/L Today, 02:58 Magnesium, (1.5-2.2) 1.9 mg/dL 01/04/25, 16:51 Phosphorus, (2.5-4.9) 3.0 mg/dL 11/23/21, 09:07 BUN, (4-19) 6 mg/dL Today, 02:58 Creatinine, (0.70-1.20) 0.54 mg/dL L Today, 02:58 Glucose, (70-99) 104 mg/dL H Today, 02:58 POC Glucose, (74-106) 85 mg/dL 01/18/25, 08:00 TSH, (0.358-3.740) 1.310 uIU/mL 12/17/23, 12:18 COAG PT, (11.7-14.9) 14.0 SECONDS 10/28/25, 01:09 HCG, Quant, (1-3) < 1 mIU/mL 10/27/20, 13:08 Urine Test Negative Negative 01/18/25, 07:35 Tst Clinic Negative 12/21/24, 11:10 Pre-Assessment Diagnosis/Proposed Procedure Planned Operative Procedure(s): diagnostic laparoscopy Anesthesia History Anesthesia History - pediatric cns: Anesthesia History - pediatric cns Hx Hospitalization No 01/04/25 10:18 Any Problems With Anesthesia No 01/29/25 00:04 Cholinesterase deficiency No 01/29/25 00:04 You/Your Family Experience No 01/29/25 00:04 fever (hyperthermia) with Relationship Recent Exposure to Contagious No 01/29/25 00:04 Disease Does patient have nerve No 01/29/25 00:04 stimulator Patient instructed to have No 01/29/25 00:04 device shut off --Does patient have Pacemaker No 01/29/25 04:31 or ICD? When Was Last Pacemaker Check QUESTION #4 FULL TEXT: You/Your Family Experience fever (hyperthermia) with Anesthesia Last Oral Intake Last Oral intake: Last Oral Intake NPO since 14:00 01/29/25 04:31 Meds taken in AM with sips of No 01/29/25 04:31 water? Meds patient instructed to take am of surgery PONV PONV - pediatric cns: PONV - pediatric cns Female HX of Motion Sickness HX of N/V After Surgery Non-Smoker Duration of Surgery greater than 60 minutes Number of Risk Factors PONV Score Height & Weight Height & Weight: Anesthesia: Height & Weight Height 5 ft 4 in 01/29/25 04:31 Weight: 93.44 kg 01/29/25 04:31 Body Mass Index (BMI) 35.3 01/29/25 04:31 Respiratory Assessment Respiratory Assessment - pediatric cns: Respiratory Tract Infection Hx - pediatric cns Hx Respiratory Tract Infection No 01/29/25 00:04 STOP Sleep Apnea STOP Sleep Apnea - pediatric cns: STOP Sleep Apnea - pediatric cns Hx Hypertension No 01/28/25 20:33 Hx Sleep Apnea Yes 01/28/25 20:33 CPAP No 01/28/25 20:33 BIPAP No 01/28/25 20:33 Do you snore loudly (louder than talking or can be heard Do you often feel tired/ fatigued/ sleepy during daytime? Has anyone observed you stop breathing during sleep? STOP Results Positive 01/28/25 20:33 QUESTION #5 FULL TEXT : Do you snore loudly (louder than talking or can be heard through closed doors)? 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 Specify any problems Hx of Preganancy in last 3 No 01/28/25 20:33 Months Nurse Filling Out Transfusion [id number] 01/28/25 20:33 & Questions: Date: 01/28/25 01/28/25 20:33 Time: 20:36 01/28/25 20:33 Patient unable to answer at this time (ie. confused, unrespo /Reproduction History /Reproductive History - pediatric cns: /Reproductive Hx- pediatric cns Hx Now No 01/29/25 00:04 Gestational Age (in weeks): EDC: Hx Hx Para Hx Section SAB No 01/29/25 00:04 Active Medications Active Medications: Current Medications Generic Name Dose Route Start Last Admin Trade Name Freq PRN Reason Stop Dose Admin Acetaminophen 650 mg 01/28/25 20:30 Acetaminophen 325 Mg Tablet PO Q6H PRN PRN Pain 1-10 Or Fever>100.7 Bupropion HCl 150 mg 01/29/25 10:00 Bupropion (Xl) 150 Mg Tablet.Xl PO QAM YOLI Docusate Sodium 100 mg 01/28/25 20:30 Docusate Sodium 100 Mg Capsule PO BID PRN PRN Constipation Escitalopram Oxalate 15 mg 01/28/25 22:00 01/28/25 23:05 Escitalopram Oxalate 10 Mg Tablet PO 15 mg QHS YOLI Administration Famotidine 20 mg 01/28/25 22:00 01/28/25 23:04 Famotidine 20 Mg Tablet PO 20 mg BID YOLI Administration Hydromorphone HCl 1 mg 01/29/25 01:27 01/29/25 02:13 Hydromorphone 1 Mg/Ml Syringe IV 1 mg Q2H PRN PRN Administration Pain Score 6-10 Lactated Ringer's 1,000 mls @ 150 mls/hr 01/28/25 20:30 01/29/25 00:06 IV 150 mls/hr .Q6H40M YOLI Infusion Metronidazole 500 mg in 100 mls @ 100 mls/hr 01/28/25 20:30 01/29/25 00:39 Flagyl IV Infused Q8 YOLI Infusion Ceftriaxone Sodium 2 gm/ 50 mls @ 100 mls/hr 01/28/25 20:30 01/28/25 22:05 Sodium Chloride IV Infused Q24@2200 YOLI Infusion Sodium Chloride 250 mls @ 15 mls/hr 01/28/25 22:51 01/29/25 00:39 IV 0 mls/hr .[id number] PRN Infusion Saline Flush Influenza Virus Vacc Trival Recomb 45 mcg 01/29/25 10:00 Flu Vaccine 2024-(6mos Up) 45 Mcg/0.5 Ml Syringe IM 01/29/25 10:01 .ONCE ONE Lorazepam 0.5 mg 01/28/25 20:30 Lorazepam 0.5 Mg Tablet PO DAILY PRN ANXIETY Magnesium Hydroxide 30 ml 01/28/25 20:30 Magnesium Hydroxide 30 Ml Udc PO DAILY PRN PRN Constipation Ondansetron HCl 4 mg 01/28/25 20:30 Ondansetron 4 Mg/2 Ml Vial IV Q8H PRN PRN NAUSEA/VOMITING Sodium Chloride 10 - 40 ml 01/28/25 22:51 01/29/25 02:14 0.9% Saline Lock 10 Ml Syringe IV 20 ml UD PRN Administration SALINE FLUSH Zolpidem Tartrate 5 mg 01/28/25 20:30 Zolpidem Tartrate 5 Mg Tablet PO QHS PRN PRN INSOMNIA PFSH Medical History Hyperplasia of endometrium determined by biopsy Frequency of urination Back pain Colonoscopy planned Former smoker History of Holter monitoring Carpal tunnel syndrome Flu-like symptoms Vapes nicotine containing substance CPAP (continuous positive airway pressure) dependence Hypersomnia Major depressive disorder Encounter for screening laboratory testing for COVID-19 virus Acute bronchitis, unspecified Wears contact lenses Wears glasses Depression Anxiety Gastric reflux History of echocardiogram Cardiology follow-up encounter Hx of pilonidal cyst delivery delivered Home Medications ?Medication ?Instructions ?Recorded ?Last Taken ?Type Lactobacillus acidophilus 250 500 mmu cells PO DAILY probiotic 05/20/24 01/27/25 22:00 History million cell capsule (Probiotic Acidophilus) cholecalciferol (vitamin D3) 50 50 mcg PO DAILY supplement 05/20/24 01/27/25 22:00 History mcg (2,000 unit) capsule (Vitamin D3) omega 5-lxi-mcs-fish oil 1,200 mg 1 cap PO DAILY supplement 05/20/24 01/27/25 22:00 History (144 mg-216 mg) capsule (Fish Oil) cyclobenzaprine 10 mg tablet 10 mg PO TID PRN muscle spasm #30 07/27/24 Unknown Rx tabs omeprazole 40 mg capsule,delayed 40 mg PO BID GERD 90 days #180 caps 08/11/24 01/28/25 10:00 Rx release ondansetron 4 mg disintegrating 4 mg PO Q8H PRN nausea and 09/30/24 01/25/25 Rx tablet vomiting #30 tabs mecobalamin (vitamin B12) 500 mcg 2,500 mcg PO DAILY supplement 10/22/24 01/27/25 22:00 History chewable tablet bupropion HCl 150 mg 24 hr tablet, 150 mg PO QAM depression #90 12/06/24 01/28/25 10:00 Rx extended release TABLETS escitalopram oxalate 10 mg tablet 15 mg (1.5 x 10 mg) PO QHS 12/06/24 01/27/25 22:00 Rx depression 90 days #135 tabs lorazepam 0.5 mg tablet 0.5 mg PO DAILY PRN anxiety #30 12/06/24 01/18/25 22:00 Rx tabs oxycodone-acetaminophen 5 mg-325 1 tab PO Q4H PRN pain 7 days #28 01/27/25 01/28/25 10:00 Rx mg tablet (Percocet) tabs naproxen 500 mg tablet 500 mg PO BID PRN PRN pain 01/28/25 01/28/25 08:00 History Allergy/AdvReac Type Severity Reaction Status Date / Time citalopram hydrobromide Allergy Hives Verified 01/28/25 15:38 (From Celexa) Penicillins (PCN) Allergy Hives Verified 01/28/25 15:38 tetanus immune globulin Allergy Hives Verified 01/28/25 15:38 liraglutide (From Victoza) AdvReac Nausea/Vom/ Verified 01/28/25 15:38 Diarrhea morphine AdvReac Itching Verified 01/28/25 15:38 Family History Mother Hypertension High cholesterol Alcoholism Arthritis Depression Sister Thyroid cancer Depression Colon cancer Arthritis Autoimmune disorder Thyroid disorder Father Alcoholism Anxiety Depression Myocardial infarction Psychiatric care Grandfather Lung cancer Aunt Esophageal cancer Surgical History Status post bilateral salpingectomy S/P laparoscopic assisted vaginal hysterectomy (LAVH) H/O esophagogastroduodenoscopy H/O dilation and curettage History of hysteroscopy Previous section H/O repair of right rotator cuff History of appendectomy Hx of cholecystectomy History of tonsillectomy Social History household members: spouse and children housing: house number of children: 2 current occupational status: employed current occupation: [employer] Childrens pets and animals: Yes pets and animals: dog(s) Smoking Status: Former smoker alcohol intake: current substance use type: does not use what type of physical activity do you participate in: walking and weight training frequency: 3-4 times per week do you feel safe at home: Yes additional social history: Elias Review of Systems (Anesthesia) ROS Narrative System reviewed and no additional complaints, except as documented.
[2025-01-29] MEDS: Midazolam 2 MG/2 ML Syringe IV (05:01)
[2025-01-29] MEDS: fentaNYL 100 MCG/2 ML Ampul IV (05:07)
[2025-01-29] MEDS: Lidocaine 1% (5 ml sdv) 5 ML Vial 4 ML IV (05:12)
[2025-01-29] MEDS: LACTATED RINGERS IV (05:19)
[2025-01-29] MEDS: metroNIDAZOLE 500 MG/100 ML BAG 100 MG IV ×3 (05:25→22:31)
--- NOTE | 2025-01-29 06:20 | OP.PCM_ITS ---
Procedures Urinary/Genital
--- NOTE | 2025-01-29 06:20 | PCM.OPRPT ---
Procedures Urinary/Genital [id number]: Other Procedure See Report ([id number], [id number]) Multi Select Codes Urinary/Genital Urinary/Genital CPT Codes: 26914 Laproscopic BS/O Operative Report (Standard) Operative Information Date of Procedure: 01/29/25 Pre-Operative Diagnosis: pelvic abscess and hematoma Post-Operative Diagnosis: same Surgery/Procedure Performed: diagnostic laparoscopy and pelvic abscess drainage product sales representative: Yes Intelligence Support Officer: Chetna Augustine Tasks completed by bookkeeping assistant: Opening & closing, Insert Trochanter and Retracting Type of Anesthesia: General RN Documented Start/Stop Times: Operation Date: 01/29/25 05:15 Case Time Anesthesia Start 01/29/25 04:53 Into Room 01/29/25 04:53 Procedure Start 01/29/25 05:28 Procedure End 01/29/25 06:29 Anesthesia End 01/29/25 06:41 Out of Room 01/29/25 06:41 Into Recovery 01/29/25 06:43 Procedure Start Time: 05:28 Procedure Stop Time: 06:29 Select all DRAINS/GRAFTS/IMPLANTS that apply: Drains (HARMEET) Drain details: left IP in the pelvis drain Estimated Blood Loss: 50 Specimen collected: Yes Description of specimen(s) removed: hematoma/abscess fluid Description of surgery: Patient was taken in the operating room and was placed under general anesthesia was prepped and draped in normal sterile fashion in the dorsal lithotomy position. Bladder was drained of clear urine with de la cruz in place and SCDs were on preoperatively. sponge stick placed in the vagina. Attention was then paid to the abdominal portion of the procedure and the umbilicus was elevated with towel clamps and injected with Marcaine and after a 5 mm incision was made through the preivous incision and the Veress needle was entered into the abdomen confirmed to be intra-abdominal with a low opening pressure of less than 4 mmHg. Abdomen was insufflated with CO2 gas and a 5 mm optical trocar was placed under direct visualization. Left and right lower quadrant 5 mm ports were placed under direct visualization through the previous incisions. omental to anterior abdominal wall adhesions were seen and taken down with the ligasure. omental to bladder, lower pelvis adhesions were seen and significant inflammation encountered. Extensive irrigation was used to gradually open and release the adhesions from bilateral sides, no sharp dissection was necessary. all adhesions were able to be released. the hematoma was opened and extensively irrigated, cultures sent. bilateral ovaries identified and evaluated- within normal limits, bowel inpected and noted to have phlegmon and inflammation present, but with general surgery present to additionally evaluate, not compromise to the integrity seen and the adhesions were released and all normal anatomy restored. Hemostasis noted. HARMEET drain placed over the based of the pelvis into the cul de sac. all port sites removed. All instruments removed from the abdomen after gas was desufflated. right and umbilical Port sites were closed with 3-0 Monocryl Steri's and op sites were applied. left port site had a silk tie used to attach the drain to the incision site. All instruments removed from the vagina and patient was awoken and taken recovery in stable condition. Surgical Findings: extensive omental to abdominal wall adhesions, hematoma/abscess in pelvis Complications Complications: No
--- NOTE | 2025-01-29 06:51 | POSTOP.ANE_ITS ---
Anesthesia: Postop Eval I
--- NOTE | 2025-01-29 06:51 | PCM.POST.ANE ---
Anesthesia: Postop Eval I Current Vital Signs Temperature: 99.4 F Pulse Rate: 117 Blood Pressure: 141/71 Respiratory Rate: 18 Pulse Ox: 97 Oxygen Delivery Method: Room Air Assessment Airway patent: Yes Spontaneous unlabored respirations: Yes Mental status: Awake and Calm nausea: No Vomiting: No Anesthesia Complication: No Fluid Hydration Crystalloid volume administer (ml): 600 Total IV fluid infused: 600 Progress Note Anesthesia document: Postop Eval 1 completed: Yes
--- NOTE | 2025-01-29 06:52 | POSTOPAN2_ITS ---
Anesthesia Postop Eval I Sum
--- NOTE | 2025-01-29 06:52 | PCM.POSTANE2 ---
Anesthesia Postop Eval I Sum Postop Eval Completion status Anesthesia document: Postop Eval 1 completed: Yes Anesthesia Postop Eval I Summary Anesthesia Postop Eval I Summary: Anesthesia Postop Eval I: Assessment Summary Airway patent Yes 01/29/25 06:52 Spontaneous unlabored Yes 01/29/25 06:52 respirations Mental status Awake,Calm 01/29/25 06:52 nausea No 01/29/25 06:52 Vomiting No 01/29/25 06:52 Anesthesia Postop Eval I: Fluid Summary Crystalloid volume administer 600 01/29/25 06:52 (ml) Colloids volume administered ( ml) Blood Product volume administered (ml) Total IV fluid infused 600 01/29/25 06:52 Anesthesia Postop Eval I: Summary Notes Anesthesia Complication No 01/29/25 06:52 Anesthesia Complication Comment: Post-operative progress note Anesthesia: Postop Eval II Evaluation Mental status: Awake Pain Level: 2 nausea: No Vomiting: No
--- NOTE | 2025-01-29 07:51 | CASEMGMT ---
TARSHA LIM NOTE:? Dx:?Pelvic Abscess Strata:?2 6 click:?23 No therapy ordered.? No CM consult ordered.? Pt has a PCP listed in [employer]. Medical record reviewed and patient evaluated for identification of discharge planning needs. Patient does not currently demonstrate a need for discharge planning by TARSHA LIM. CM will continue to be available for any discharge needs that may arise, and intervene as indicated. Maida OVIEDO RN, CM
--- NOTE | 2025-01-29 08:48 | PCM.PN.OB ---
Subjective Subjective increased pain overnight, bloating, tachycardia, temp stable but low grade. no vaginal bleeding no emesis but nauseated Objective Data Objective Data Vital Signs: Vital Signs Temp Pulse Resp BP Pulse Ox O2 Del Method O2 Flow Rate 99.8 F H 110 H 15 122/66 H 100 Nasal Cannula 2 01/29/25 08:26 01/29/25 08:26 01/29/25 08:26 01/29/25 08:26 01/29/25 08:26 01/29/25 08:26 01/29/25 08:26 Oxygen Flow Rate (L/min) 2 Oxygen Delivery Method Nasal Cannula Weight: 206 lb Body Mass Index (BMI) 35.3 Intake & Output: Intake and Output for Last 24 Hours 01/27/25 01/28/25 01/29/25 23:59 23:59 23:59 Intake Total 2202.5 / 2202.5 618.75 / 618.75 Output Total 500 / 500 Balance 2202.5 / 2202.5 118.75 / 118.75 Lab / Micro Data 01/29/25 02:58 01/29/25 02:58 Labs: Laboratory Results - last 24 hr 01/28/25 16:10: WBC 9.7, RBC 3.47 L, Hgb 10.4 L, Hct 30.1 L, MCV 86.7, MCH 30.0, MCHC 34.6, RDW Std Deviation 40.1, RDW Coeff of Tania 13.0, Plt Count 312, MPV 9.9, Immature Gran % (Auto) 0.600, Neut % (Auto) 75.4 H, Lymph % (Auto) 13.2 L, [place] % (Auto) 6.8, Eos % (Auto) 3.6, Baso % (Auto) 0.4, Absolute Neuts (auto) 7.3, Absolute Lymphs (auto) 1.28, Nucleated RBC % 0, Sodium 137, Potassium 3.5, Chloride 100, Carbon Dioxide 26.9, Anion Gap 10, BUN 7, Creatinine 0.60 L, Estim Creat Clear Calc 117.03, Est GFR (MDRD) Non-Af 116, BUN/Creatinine Ratio 11.3, Glucose 111 H, Calcium 9.2 01/28/25 16:19: Urine Color Yellow, Urine Clarity Clear, Urine pH 8.0, Ur Specific [place] 1.010, Urine Protein Negative, Urine Glucose (UA) Normal, Urine Ketones Negative, Urine Occult Blood 10 H, Urine Nitrite Negative, Urine Bilirubin Negative, Urine Urobilinogen Normal, Ur Leukocyte Esterase Negative, Urine RBC 0-5 SEEN, Urine WBC 0-5 SEEN, Ur Squamous Epith Cells 0-5 SEEN, Urine Bacteria 0 SEEN, Urine Mucus 0 SEEN 01/28/25 19:15: Lactic Acid < 1.0 01/29/25 02:58: WBC 11.3 H, RBC 2.81 L, Hgb 8.3 L, Hct 24.5 L, MCV 87.2, MCH 29.5, MCHC 33.9, RDW Std Deviation 40.9, RDW Coeff of Tania 13.0, Plt Count 255, MPV 10.0, Immature Gran % (Auto) 0.700, Neut % (Auto) 78.8 H, Lymph % (Auto) 10.6 L, [place] % (Auto) 6.8, Eos % (Auto) 2.7, Baso % (Auto) 0.4, Absolute Neuts (auto) 8.9 H, Absolute Lymphs (auto) 1.20, Nucleated RBC % 0, Sodium 134, Potassium 3.5, Chloride 103, Carbon Dioxide 22.2, Anion Gap 9, BUN 6, Creatinine 0.54 L, Estim Creat Clear Calc 151.94, Est GFR (MDRD) Non-Af 118, BUN/Creatinine Ratio 11.8, Glucose 104 H, Calcium 8.3, Total Bilirubin 0.83, AST 20, ALT 26, Alkaline Phosphatase 68, Total Protein 6.1, Albumin 3.4 L, Globulin 2.7, Albumin/Globulin Ratio 1.3 Radiography Diagnostic Testing: Radiology Impression Abdomen/Pelvis CT 01/28/25 15:59 IMPRESSION: Status post recent hysterectomy. Increased size of heterogeneous loculated and more organized fluid collections with internal foci of gas within the surgical bed in the pelvis with increased surrounding inflammatory fat stranding/edema; suspect surgical site infection with abscess development. Reading Location: [facility] Constitutional Constitutional: Reports systems reviewed and no addt'l complaints, except as documented Gastrointestinal Gastrointestinal: Reports as per HPI Physical Exam Chest Chest Narrative: tachycardic Narrative: soft, tender to palpation Assessment & Plan (1) S/P laparoscopic assisted vaginal hysterectomy (LAVH): COMMENT: sm fibroid aub pelvic pain (2) Postoperative hematoma: (3) Postoperative abscess of pelvis in female: COMMENT: s/p surgical drainage. HARMEET drain in. ceftriaxone and flagyl. (4) Postoperative abdominal pain: PLAN: Plan admitted for IV antibiotics, s/p laparoscopic drainage. continue HARMEET drain. scds for now
[2025-01-29] MEDS: Magnesium Chloride 64 MG Delay Rel.Tablet 128 MG PO (08:49)
[2025-01-29] MEDS: KCL 20MEQ in D5.45NS 20 MEQ/1,000 ML IV.SOLN. 150 MEQ IV ×3 (09:15→23:39)
[2025-01-29] MEDS: Ketorolac 30 MG/ML Syringe IV ×3 (10:40→22:32)
[2025-01-29 13:04] LABS: Hematocrit 29.7 % (37-47); Hemoglobin 10.2 g/dL (12.0-15.0); Mean Corp Hgb Conc 34.3 g/dL (32-36); Mean Corpuscular Volume 87.6 fL (81-99); Mean Platelet Vol. 9.9 fl (6.2-12.0); Platelet Count 342 K/mm3 (150-450); RBC Distribution Width CV 13.4 % (11.6-14.6); RBC Distribution Width SD 42.5 fl (35.1-43.9); Red Blood Count 3.39 M/mm3 (4.2-5.4); White Blood Count 12.2 K/mm3 (4.4-11.0)
[2025-01-29] MEDS: 0.9% Normal Saline (1000mL) 1,000 ML 999 ML IV (13:27)
[2025-01-29] MEDS: Clindamycin 600 MG/50 ML BAG 150 MG IV ×3 (13:30→23:57)
--- NOTE | 2025-01-29 14:23 | PCM.PN.BLA ---
Progress Note patient evaluated for elevated temp, decreased bp and tachycardia. having chills and feeling bloated, burping but no flatus yet. continued serosanguinous output from HARMEET drain Physical Exam GI GI Narrative: mild distended- appropriate and consistent with after surgery. left bandage changed, soaked with 100+cc fluid. Assessment & Plan Assessment/Plan (1) Postoperative abscess of pelvis in female: (2) Postoperative abdominal pain: PLAN: Plan repeat cbc reviewed and IVF bolus given, bp responding. inflammatory response responsible for symptoms, continue to monitor and support, reviewed with nursing and patient. patient changing position and HARMEET drain emptied and refilled.
[2025-01-29] MEDS: OMEPRAZOLE 40 MG CAPSULE.DR PO (16:19)
[2025-01-29] MEDS: LACTATED RINGERS 500 ML 999 ML IV ×2 (18:10→20:50)
[2025-01-29] MEDS: Ceftriaxone 2 GM in 0.9% Normal Saline (50mL MB+) 50 ML IV (18:34)
[2025-01-30] VITALS (11 sets, daily range): BP systolic 106–116; BP diastolic 55–65; PULSE 83–96; RESP 15–16; TEMP 36.8–37.2; O2SAT 91–98
[2025-01-30] MEDS: Ketorolac 30 MG/ML Syringe IV (06:15)
[2025-01-30] MEDS: metroNIDAZOLE 500 MG/100 ML BAG 100 MG IV ×3 (06:51→21:56)
[2025-01-30] MEDS: KCL 20MEQ in D5.45NS 20 MEQ/1,000 ML IV.SOLN. 150 MEQ IV (06:51)
[2025-01-30 07:12] LABS: Hematocrit 22.0 % (37-47); Hemoglobin 7.4 g/dL (12.0-15.0); Mean Corp Hgb Conc 33.6 g/dL (32-36); Mean Corpuscular Volume 88.7 fL (81-99); Mean Platelet Vol. 10.0 fl (6.2-12.0); Platelet Count 200 K/mm3 (150-450); RBC Distribution Width CV 13.6 % (11.6-14.6); RBC Distribution Width SD 44.2 fl (35.1-43.9); Red Blood Count 2.48 M/mm3 (4.2-5.4); White Blood Count 8.8 K/mm3 (4.4-11.0)
[2025-01-30 07:34] LABS: Anion Gap 6 (5-15); BUN 4 mg/dL (4-19); BUN/Creat Ratio 6.9 RATIO (10-20); Calcium,Total 8.2 mg/dL (7.6-11.0); Carbon Dioxide 25.7 mmol/L (21.0-32.0); Chloride 107 mmol/L (98-108); Estimated Creatinine Clearance 157.77 ml/min (50-250); Glucose 112 mg/dL (70-99); Potassium 4.0 mmol/L (3.3-5.1)
[2025-01-30] MEDS: Clindamycin 600 MG/50 ML BAG 150 MG IV ×3 (08:25→18:06)
[2025-01-30] MEDS: OMEPRAZOLE 40 MG CAPSULE.DR PO ×2 (08:25→18:05)
--- NOTE | 2025-01-30 09:53 | PCM.PN.OB ---
Subjective Subjective feels more achy and uncomfortable today, had a small watery bowel movement. no CP SOB, some small coughing. no emesis, co stomach ache Objective Data Objective Data Vital Signs: Vital Signs Temp Pulse Resp BP Pulse Ox O2 Del Method O2 Flow Rate 98.2 F 92 16 110/57 L 95 Room Air 2 01/30/25 08:21 01/30/25 08:21 01/30/25 08:47 01/30/25 08:47 01/30/25 08:47 01/30/25 08:47 01/29/25 08:26 Oxygen Flow Rate (L/min) 2 Oxygen Delivery Method Room Air Weight: 206 lb Body Mass Index (BMI) 35.3 Intake & Output: Intake and Output for Last 24 Hours 01/28/25 01/29/25 01/30/25 23:59 23:59 22:59 Intake Total 2202.5 / 2202.5 5963.75 / 5963.75 1050 / 1050 Output Total 2795 / 2815 780 / 780 Balance 2202.5 / 2202.5 3168.75 / 3148.75 270 / 270 Lab / Micro Data 01/30/25 06:41 01/30/25 06:41 Labs: Laboratory Results - last 24 hr 01/29/25 12:50: WBC 12.2 H, RBC 3.39 L, Hgb 10.2 L, Hct 29.7 L, MCV 87.6, MCH 30.1, MCHC 34.3, RDW Std Deviation 42.5, RDW Coeff of Tania 13.4, Plt Count 342, MPV 9.9 01/30/25 06:41: WBC 8.8, RBC 2.48 L, Hgb 7.4 L, Hct 22.0 L, MCV 88.7, MCH 29.8, MCHC 33.6, RDW Std Deviation 44.2 H, RDW Coeff of Tania 13.6, Plt Count 200, MPV 10.0, Sodium 139, Potassium 4.0, Chloride 107, Carbon Dioxide 25.7, Anion Gap 6, BUN 4, Creatinine 0.52 L, Estim Creat Clear Calc 157.77, Est GFR (MDRD) Non-Af 120, BUN/Creatinine Ratio 6.9 L, Glucose 112 H, Calcium 8.2 Micro: Microbiology 01/28/25 16:19 Urine, Clean Catch Urine Culture - Preliminary Culture exhibits no growth. Radiography Diagnostic Testing: Radiology Impression Abdomen/Pelvis CT 01/28/25 15:59 IMPRESSION: Status post recent hysterectomy. Increased size of heterogeneous loculated and more organized fluid collections with internal foci of gas within the surgical bed in the pelvis with increased surrounding inflammatory fat stranding/edema; suspect surgical site infection with abscess development. Reading Location: [facility] Constitutional Constitutional: Reports systems reviewed and no addt'l complaints, except as documented Gastrointestinal Gastrointestinal: Reports as per HPI Physical Exam Chest Chest Narrative: tachycardic Narrative: soft, tender to palpation Assessment & Plan (1) S/P laparoscopic assisted vaginal hysterectomy (LAVH): COMMENT: sm fibroid aub pelvic pain (2) Postoperative hematoma: (3) Postoperative abscess of pelvis in female: COMMENT: s/p surgical drainage. HARMEET drain in. ceftriaxone and flagyl. (4) Postoperative abdominal pain: PLAN: Plan admitted for IV antibiotics, s/p laparoscopic drainage. continue HARMEET drain. scds, lovenox. ambulate today, add reglan and advance diet. suspect hemodilution from IVF resuscitation but monitor cbc repeat at 1230. goal of MAP over 65.
[2025-01-30 12:35] LABS: Hematocrit 21.5 % (37-47); Hemoglobin 7.3 g/dL (12.0-15.0); Immature Granulocytes Count 0.050 X10^3/uL (0.0-0.0); Mean Corp Hgb Conc 34.0 g/dL (32-36); Mean Corpuscular Volume 88.5 fL (81-99); Mean Platelet Vol. 9.8 fl (6.2-12.0); NRBC Flagged by Analyzer 0 % (0-5); POSITIVE DIFFERENTIAL YES; Platelet Count 207 K/mm3 (150-450); RBC Distribution Width CV 13.3 % (11.6-14.6); RBC Distribution Width SD 43.1 fl (35.1-43.9); Red Blood Count 2.43 M/mm3 (4.2-5.4); White Blood Count 8.4 K/mm3 (4.4-11.0)
[2025-01-30 12:36] LABS: Differential Indicated SCAN CRITERIA MET
--- NOTE | 2025-01-30 15:20 | RAD_ITS ---
PROCEDURE: RAD/Chest PA and Lateral
--- NOTE | 2025-01-30 15:29 | PCM.PN.OB ---
Subjective Subjective patient co RUQ pain wrapping around to her back and SOB with exertion. vitals stable and o2 sat normal. Objective Data Objective Data Vital Signs: Vital Signs Temp Pulse Resp BP Pulse Ox O2 Del Method O2 Flow Rate 99.0 F 90 16 116/64 95 Room Air 2 01/30/25 14:48 01/30/25 14:48 01/30/25 14:48 01/30/25 14:48 01/30/25 14:48 01/30/25 14:50 01/29/25 08:26 Oxygen Flow Rate (L/min) 2 Oxygen Delivery Method Room Air Weight: 206 lb Body Mass Index (BMI) 35.3 Intake & Output: Intake and Output for Last 24 Hours 01/28/25 01/29/25 01/30/25 23:59 23:59 22:59 Intake Total 2202.5 / 2202.5 5963.75 / 5963.75 2485 / 2485 Output Total 2795 / 2815 1540 / 1540 Balance 2202.5 / 2202.5 3168.75 / 3148.75 945 / 945 Lab / Micro Data 01/30/25 12:23 01/30/25 06:41 Labs: Laboratory Results - last 24 hr 01/30/25 06:41: WBC 8.8, RBC 2.48 L, Hgb 7.4 L, Hct 22.0 L, MCV 88.7, MCH 29.8, MCHC 33.6, RDW Std Deviation 44.2 H, RDW Coeff of Tania 13.6, Plt Count 200, MPV 10.0, Sodium 139, Potassium 4.0, Chloride 107, Carbon Dioxide 25.7, Anion Gap 6, BUN 4, Creatinine 0.52 L, Estim Creat Clear Calc 157.77, Est GFR (MDRD) Non-Af 120, BUN/Creatinine Ratio 6.9 L, Glucose 112 H, Calcium 8.2 01/30/25 12:23: WBC 8.4, RBC 2.43 L, Hgb 7.3 L, Hct 21.5 L, MCV 88.5, MCH 30.0, MCHC 34.0, RDW Std Deviation 43.1, RDW Coeff of Tania 13.3, Plt Count 207, MPV 9.8, Immature Gran % (Auto) 0.600, Neut % (Auto) 84.5 H, Lymph % (Auto) 6.4 L, [place] % (Auto) 2.7, Eos % (Auto) 5.4 H, Baso % (Auto) 0.4, Absolute Neuts (auto) 7.1, Absolute Lymphs (auto) 0.54 L, Nucleated RBC % 0 Micro: Microbiology 01/29/25 09:03 Wound Abcess - Tissue Gram Stain - Final 01/29/25 09:03 Wound Abcess - Aerobic & Anaerobic Swabs Gram Stain - Final 01/29/25 09:18 Wound Drainage - Pelvic Gram Stain - Final 01/28/25 16:19 Urine, Clean Catch Urine Culture - Preliminary Culture exhibits no growth. Physical Exam Resp Auscultation: clear to auscultation bilaterally; Negative for crackles, rales, rhonchi or wheezes Cardio Rate: regular rate Rhythm: regular rhythm GI GI Narrative: soft ND tender generalized Assessment & Plan (1) Postoperative abscess of pelvis in female: COMMENT: s/p surgical drainage. HARMEET drain in. ceftriaxone and flagyl, clindamycin (2) Postoperative abdominal pain: PLAN: Plan will obtain stat CXR, encouraged incentive spirometry. reviewed CXR findings with hospitalist- will give IV lasix x 1, get cpap for bedtime, and repeat CXR in am. if symptoms/condition worsen plan hospitalist consult.
[2025-01-30] MEDS: Furosemide 20 MG/2 ML VIAL IV (17:02)
[2025-01-30] MEDS: Ceftriaxone 2 GM in 0.9% Normal Saline (50mL MB+) 50 ML IV (20:33)
[2025-01-31] VITALS (7 sets, daily range): BP systolic 115–144; BP diastolic 60–82; PULSE 83–96; RESP 16–18; TEMP 36.6–36.9; O2SAT 94–99
[2025-01-31] MEDS: Clindamycin 600 MG/50 ML BAG 150 MG IV ×4 (00:35→17:44)
[2025-01-31] MEDS: 0.9% Saline Lock 10 ML Syringe IV (04:31)
[2025-01-31] MEDS: Furosemide 20 MG/2 ML VIAL IV (04:31)
[2025-01-31] MEDS: metroNIDAZOLE 500 MG/100 ML BAG 100 MG IV ×3 (05:10→22:46)
--- NOTE | 2025-01-31 05:30 | RAD_ITS ---
PROCEDURE: RAD/Chest PA and Lateral
[2025-01-31] MEDS: OMEPRAZOLE 40 MG CAPSULE.DR PO ×2 (05:50→16:29)
--- NOTE | 2025-01-31 06:47 | ECHOD_ITS ---
Reason For Study ECHO/Echo Complete
--- NOTE | 2025-01-31 06:51 | PCM.PN.OB ---
Subjective Subjective patient feeling better overnight shortness of breath resolved, still Objective Data Objective Data Vital Signs: Vital Signs Temp Pulse Resp BP Pulse Ox O2 Del Method O2 Flow Rate 98.5 F 96 16 115/68 96 Room Air 2 01/31/25 02:00 01/31/25 02:00 01/31/25 02:00 01/31/25 02:00 01/31/25 02:00 01/31/25 02:18 01/30/25 20:00 FiO2 21 01/31/25 00:51 Oxygen Flow Rate (L/min) 2 Oxygen Delivery Method Room Air Weight: 206 lb Body Mass Index (BMI) 35.3 Intake & Output: Intake and Output for Last 24 Hours 01/29/25 01/30/25 01/31/25 23:59 22:59 23:59 Intake Total 5963.75 / 5963.75 3150 / 3150 200 / 200 Output Total 2795 / 2815 2565 / 2565 1630 / 1630 Balance 3168.75 / 3148.75 585 / 585 -1430 / -1430 Lab / Micro Data 01/31/25 07:13 01/30/25 06:41 Labs: Laboratory Results - last 24 hr 01/30/25 06:41: WBC 8.8, RBC 2.48 L, Hgb 7.4 L, Hct 22.0 L, MCV 88.7, MCH 29.8, MCHC 33.6, RDW Std Deviation 44.2 H, RDW Coeff of Tania 13.6, Plt Count 200, MPV 10.0, Sodium 139, Potassium 4.0, Chloride 107, Carbon Dioxide 25.7, Anion Gap 6, BUN 4, Creatinine 0.52 L, Estim Creat Clear Calc 157.77, Est GFR (MDRD) Non-Af 120, BUN/Creatinine Ratio 6.9 L, Glucose 112 H, Calcium 8.2 01/30/25 12:23: WBC 8.4, RBC 2.43 L, Hgb 7.3 L, Hct 21.5 L, MCV 88.5, MCH 30.0, MCHC 34.0, RDW Std Deviation 43.1, RDW Coeff of Tania 13.3, Plt Count 207, MPV 9.8, Immature Gran % (Auto) 0.600, Neut % (Auto) 84.5 H, Lymph % (Auto) 6.4 L, [place] % (Auto) 2.7, Eos % (Auto) 5.4 H, Baso % (Auto) 0.4, Absolute Neuts (auto) 7.1, Absolute Lymphs (auto) 0.54 L, Nucleated RBC % 0 Micro: Microbiology 01/29/25 09:03 Wound Abcess - Tissue Gram Stain - Final 01/29/25 09:03 Wound Abcess - Aerobic & Anaerobic Swabs Gram Stain - Final 01/29/25 09:18 Wound Drainage - Pelvic Gram Stain - Final 01/28/25 16:19 Urine, Clean Catch Urine Culture - Preliminary Culture exhibits no growth. Radiography Diagnostic Testing: Radiology Impression Chest X-Ray 01/30/25 15:20 IMPRESSION: Mild pulmonary vascular congestion. No focal consolidation. Trace left base effusion. Mild cardiomegaly. Reading Location: [facility] Chest X-Ray 01/31/25 05:30 IMPRESSION: Grossly unchanged exam. Stable mild cardiomegaly. Reading Location: [facility] ROS Constitutional Constitutional: Reports systems reviewed and no addt'l complaints, except as documented Cardiovascular Cardiovascular: Reports as per HPI Respiratory/Chest Respiratory/Chest: Reports as per HPI Gastrointestinal Gastrointestinal: Reports as per HPI Physical Exam Const alert and oriented x3 Resp Auscultation: clear to auscultation bilaterally; Negative for crackles, rales, rhonchi or wheezes Cardio Rate: regular rate Rhythm: regular rhythm Assessment & Plan (1) S/P laparoscopic assisted vaginal hysterectomy (LAVH): COMMENT: sm fibroid aub pelvic pain (2) Postoperative hematoma: (3) Postoperative abscess of pelvis in female: COMMENT: s/p surgical drainage. HARMEET drain in. ceftriaxone and flagyl, clindamycin (4) Postoperative abdominal pain: PLAN: Plan Abscess- admitted for IV antibiotics- ceftriaxone, clinda, and flagyl due to allergies, await culture results today s/p laparoscopic drainage. continue HARMEET drain. DVT prophylaxis- scds, lovenox. postop care- ambulate and advance diet. SOB- given lasix x 2, consult hospitalist for management, probnp, echo, and tsh ordered. continue home meds
[2025-01-31 07:47] LABS: Hematocrit 22.2 % (37-47); Hemoglobin 7.5 g/dL (12.0-15.0); Immature Granulocytes Count 0.040 X10^3/uL (0.0-0.0); Mean Corp Hgb Conc 33.8 g/dL (32-36); Mean Corpuscular Volume 87.4 fL (81-99); Mean Platelet Vol. 10.0 fl (6.2-12.0); NRBC Flagged by Analyzer 0 % (0-5); POSITIVE DIFFERENTIAL YES; Platelet Count 226 K/mm3 (150-450); RBC Distribution Width CV 13.3 % (11.6-14.6); RBC Distribution Width SD 42.5 fl (35.1-43.9); Red Blood Count 2.54 M/mm3 (4.2-5.4); White Blood Count 8.4 K/mm3 (4.4-11.0)
[2025-01-31 08:40] LABS: Anion Gap 11 (5-15); BUN 4 mg/dL (4-19); BUN/Creat Ratio 7.7 RATIO (10-20); Calcium,Total 8.5 mg/dL (7.6-11.0); Carbon Dioxide 24.3 mmol/L (21.0-32.0); Chloride 103 mmol/L (98-108); Estimated Creatinine Clearance 160.87 ml/min (50-250); Glucose 98 mg/dL (70-99); Potassium 3.0 mmol/L (3.3-5.1)
[2025-01-31 09:03] LABS: Pro- Brain NATRIURETIC PEPTIDE 804 pg/mL (<=450)
[2025-01-31] MEDS: buPROPion (XL) 150 MG TABLET.XL PO (09:44)
[2025-01-31] MEDS: Cholecalciferol (VIT D3) 25 MCG TABLET (1,000 UNITS) 50 MCG PO (09:44)
[2025-01-31] MEDS: Lactobacillis Acidophilus 1 CAP PO ×2 (10:20→20:03)
[2025-01-31] MEDS: Potassium Chloride Oral Tablet 20 MEQ 40 MEQ PO (15:31)
--- NOTE | 2025-01-31 17:08 | PCM.CONS.GEN ---
Assessment & Plan Assessment/Plan (1) Grade I diastolic dysfunction: PLAN: Plan #SOB on exertion - Patient required high-volume fluid resuscitation postsurgery due to hypotension, went on to develop some shortness of breath on exertion and chest x-ray with mild pulmonary edema. proBNP slightly elevated and it was suspected that she was overloaded from the amount of fluid which was unavoidable given her clinical condition at the time however patient stabilized - Responded very well to IV Lasix x 2 with good urine output and patient saturating 99% on room air with no further complaints of shortness of breath - Echocardiogram with stage I diastolic dysfunction and an EF of 65% with no wall motion abnormalities - Discussed with primary, no further Lasix needed, can follow-up with the primary care doc for long-term management of risk factors like hypertension and obesity - Would also encourage compliance with CPAP #OLE -Continue home NIPPV if applicable #Depression/anxiety -Continue home medications #GERD -Continue PPI # Postoperative abscess in pelvis - On antibiotics with cultures pending - Management per primary #DVT ppx: Lovenox subcu Ivelisse Vazquez MD Time spent in the patient's overall evaluation, decision-making process, review of diagnostic data, adjustment of management, discussion with other providers, nursing and ancillary staff involved in patient's care documentation, 37 Minutes HPI Consult Data Date of Consult: 01/31/25 HPI Narrative Reason for Consultation: Concern for fluid overload HPI Narrative: KALA ONEILL, is a 39 F with a history of anxiety, OLE, and GERD who presented [facility] 01/28/2025 due to an elevated temp of 100 at home with abdominal discomfort after recent hysterectomy and had an abdominal pelvis CT which showed increased size of heterogenous loculated and more organized fluid collections with internal foci of gas within the surgical bed of the pelvis surrounded by inflammatory fat stranding/edema with concern for abscess. Patient taken to the OR in the a.m. with Dr. Cisneros for a diagnostic laparoscopy and pelvic abscess drainage. Patient had postoperative course complicated by decreased BP with tachycardia that responded to aggressive IV fluids with stabilization however the following day she developed some shortness of breath on exertion, chest x-ray with mild congestion and patient given one-time Lasix and her home CPAP was ordered, this a.m. symptoms improved but chest x-ray similar, given another dose of Lasix and hospitalist consulted. Patient evaluated at bedside and reports after the Lasix she is urinating well and feeling much better, was not complaining of shortness of breath to me, no swelling in lower extremities. No other new acute complaints FORMERLY [facility], [facility] Medical History Hyperplasia of endometrium determined by biopsy Frequency of urination Back pain Colonoscopy planned Former smoker History of Holter monitoring Carpal tunnel syndrome Flu-like symptoms Vapes nicotine containing substance CPAP (continuous positive airway pressure) dependence Hypersomnia Major depressive disorder Encounter for screening laboratory testing for COVID-19 virus Acute bronchitis, unspecified Wears contact lenses Wears glasses Depression Anxiety Gastric reflux History of echocardiogram Cardiology follow-up encounter Hx of pilonidal cyst delivery delivered Home Medications ?Medication ?Instructions ?Recorded ?Last Taken ?Type Lactobacillus acidophilus 250 500 mmu cells PO DAILY probiotic 05/20/24 01/27/25 22:00 History million cell capsule (Probiotic Acidophilus) cholecalciferol (vitamin D3) 50 50 mcg PO DAILY supplement 05/20/24 01/27/25 22:00 History mcg (2,000 unit) capsule (Vitamin D3) omega 1-bbk-lif-fish oil 1,200 mg 1 cap PO DAILY supplement 05/20/24 01/27/25 22:00 History (144 mg-216 mg) capsule (Fish Oil) cyclobenzaprine 10 mg tablet 10 mg PO TID PRN muscle spasm #30 07/27/24 Unknown Rx tabs omeprazole 40 mg capsule,delayed 40 mg PO BID GERD 90 days #180 caps 08/11/24 01/28/25 10:00 Rx release ondansetron 4 mg disintegrating 4 mg PO Q8H PRN nausea and 09/30/24 01/25/25 Rx tablet vomiting #30 tabs mecobalamin (vitamin B12) 500 mcg 2,500 mcg PO DAILY supplement 10/22/24 01/27/25 22:00 History chewable tablet bupropion HCl 150 mg 24 hr tablet, 150 mg PO QAM depression #90 12/06/24 01/28/25 10:00 Rx extended release TABLETS escitalopram oxalate 10 mg tablet 15 mg (1.5 x 10 mg) PO QHS 12/06/24 01/27/25 22:00 Rx depression 90 days #135 tabs lorazepam 0.5 mg tablet 0.5 mg PO DAILY PRN anxiety #30 12/06/24 01/18/25 22:00 Rx tabs oxycodone-acetaminophen 5 mg-325 1 tab PO Q4H PRN pain 7 days #28 01/27/25 01/28/25 10:00 Rx mg tablet (Percocet) tabs naproxen 500 mg tablet 500 mg PO BID PRN PRN pain 01/28/25 01/28/25 08:00 History Allergy/AdvReac Type Severity Reaction Status Date / Time citalopram hydrobromide Allergy Hives Verified 01/28/25 15:38 (From Celexa) Penicillins (PCN) Allergy Hives Verified 01/28/25 15:38 tetanus immune globulin Allergy Hives Verified 01/28/25 15:38 liraglutide (From Victoza) AdvReac Nausea/Vom/ Verified 01/28/25 15:38 Diarrhea morphine AdvReac Itching Verified 01/28/25 15:38 Family History Mother Hypertension High cholesterol Alcoholism Arthritis Depression Sister Thyroid cancer Depression Colon cancer Arthritis Autoimmune disorder Thyroid disorder Father Alcoholism Anxiety Depression Myocardial infarction Psychiatric care Grandfather Lung cancer Aunt Esophageal cancer Surgical History Status post bilateral salpingectomy S/P laparoscopic assisted vaginal hysterectomy (LAVH) H/O esophagogastroduodenoscopy H/O dilation and curettage History of hysteroscopy Previous section H/O repair of right rotator cuff History of appendectomy Hx of cholecystectomy History of tonsillectomy Social History household members: spouse and children housing: house number of children: 2 current occupational status: employed current occupation: [employer] Childrens pets and animals: Yes pets and animals: dog(s) Smoking Status: Former smoker alcohol intake: current substance use type: does not use what type of physical activity do you participate in: walking and weight training frequency: 3-4 times per week do you feel safe at home: Yes additional social history: Elias DUQUE Narrative General: No further fevers HENT: Denies headache, denies stuffy nose, denies sore throat EYES: Denies changes in vision Resp: Denies cough, denies shortness of breath Cardiac: Denies chest pain GI: Some vague abdominal discomfort that is been improving : Denies changes in urination Extremity: Denies swelling MSK: Denies weakness Neuro: Denies any numbness/tingling Heme: Denies any bleeding or bruising Skin: Denies rashes Psychiatric: No complaints voiced Physical Exam Narrative General: Alert, oriented, no apparent distress HEENT: Atraumatic, normocephalic Eyes: Anicteric, normal conjunctiva, extraocular movements grossly intact Neck: Supple Respiratory: Clear to auscultation bilaterally, normal respiratory effort Cardiovascular: Regular rate and rhythm GI: Soft Extremities: No edema Musculoskeletal: Moving all extremities Neuro: No overt focal neurological deficits Skin: No rashes appreciated Psych: Cooperative Lab / Micro Data 01/31/25 07:13 01/31/25 07:13 Labs: Laboratory Results - last 24 hr 01/31/25 07:13: WBC 8.4, RBC 2.54 L, Hgb 7.5 L, Hct 22.2 L, MCV 87.4, MCH 29.5, MCHC 33.8, RDW Std Deviation 42.5, RDW Coeff of Tania 13.3, Plt Count 226, MPV 10.0, Immature Gran % (Auto) 0.500, Neut % (Auto) 81.7 H, Lymph % (Auto) 7.2 L, [place] % (Auto) 4.4, Eos % (Auto) 6.1 H, Baso % (Auto) 0.1, Absolute Neuts (auto) 6.8, Absolute Lymphs (auto) 0.60 L, Nucleated RBC % 0, Sodium 139, Potassium 3.0 L, Chloride 103, Carbon Dioxide 24.3, Anion Gap 11, BUN 4, Creatinine 0.51 L, Estim Creat Clear Calc 160.87, Est GFR (MDRD) Non-Af 120, BUN/Creatinine Ratio 7.7 L, Glucose 98, Calcium 8.5, NT pro BNP II 804 H, TSH 2.620 Micro: Microbiology 01/28/25 16:19 Urine, Clean Catch Urine Culture - Final Culture exhibits no growth. 01/29/25 09:03 Wound Abcess - Tissue Gram Stain - Final 01/29/25 09:03 Wound Abcess - Tissue Wound Culture - Preliminary No growth-Final to follow 01/28/25 19:32 Blood Culture (Wb) - Anticubital Left Blood Culture - Preliminary No growth in 48 hours. 01/28/25 19:15 Blood Culture (Wb) - Anticubital Left Blood Culture - Preliminary No growth in 48 hours. 01/29/25 09:03 Wound Abcess - Aerobic & Anaerobic Swabs Gram Stain - Final 01/29/25 09:18 Wound Drainage - Pelvic Gram Stain - Final Imaging Radiology Impression Chest X-Ray 01/31/25 05:30 IMPRESSION: Grossly unchanged exam. Stable mild cardiomegaly. Reading Location: [facility] Echocardiogram 01/31/25 06:47 Interpretation Summary The left ventricular ejection fraction is 65 %. Mild concentric left ventricular hypertrophy. Stage 1 diastolic dysfunction. The left atrium is moderately enlarged. Mild (1+) mitral valve insufficiency. Ordering Physician: Mony Cisneros Referring Physician: Librado Ybarra Performed By: Daija Bello RCS Charges/Coding Visit Charges Office Visits / Consults: 15251 OV L4 Est 30min
--- NOTE | 2025-01-31 17:19 | PCM.PN.OB ---
Subjective Subjective feeling better, nausea resolving, po intake increasing, slept well throughout the day. still some SOB with ambulation. afebrile. has missed tracking some urine output, feels like she is diuresing well. Objective Data Objective Data Vital Signs: Vital Signs Temp Pulse Resp BP Pulse Ox O2 Del Method O2 Flow Rate 98.3 F 84 18 144/74 H 99 Room Air 2 01/31/25 16:00 01/31/25 16:00 01/31/25 16:00 01/31/25 16:00 01/31/25 16:00 01/31/25 16:00 01/30/25 20:00 FiO2 21 01/31/25 00:51 Oxygen Flow Rate (L/min) 2 Oxygen Delivery Method Room Air Weight: 206 lb Body Mass Index (BMI) 35.3 Intake & Output: Intake and Output for Last 24 Hours 01/29/25 01/30/25 01/31/25 23:59 22:59 23:59 Intake Total 5963.75 / 5963.75 3150 / 3150 350 / 350 Output Total 2795 / 2815 2565 / 2565 1940 / 1940 Balance 3168.75 / 3148.75 585 / 585 -1590 / -1590 Lab / Micro Data 01/31/25 07:13 01/31/25 07:13 Labs: Laboratory Results - last 24 hr 01/31/25 07:13: WBC 8.4, RBC 2.54 L, Hgb 7.5 L, Hct 22.2 L, MCV 87.4, MCH 29.5, MCHC 33.8, RDW Std Deviation 42.5, RDW Coeff of Tania 13.3, Plt Count 226, MPV 10.0, Immature Gran % (Auto) 0.500, Neut % (Auto) 81.7 H, Lymph % (Auto) 7.2 L, [place] % (Auto) 4.4, Eos % (Auto) 6.1 H, Baso % (Auto) 0.1, Absolute Neuts (auto) 6.8, Absolute Lymphs (auto) 0.60 L, Nucleated RBC % 0, Sodium 139, Potassium 3.0 L, Chloride 103, Carbon Dioxide 24.3, Anion Gap 11, BUN 4, Creatinine 0.51 L, Estim Creat Clear Calc 160.87, Est GFR (MDRD) Non-Af 120, BUN/Creatinine Ratio 7.7 L, Glucose 98, Calcium 8.5, NT pro BNP II 804 H, TSH 2.620 Micro: Microbiology 01/28/25 16:19 Urine, Clean Catch Urine Culture - Final Culture exhibits no growth. 01/29/25 09:03 Wound Abcess - Tissue Gram Stain - Final 01/29/25 09:03 Wound Abcess - Tissue Wound Culture - Preliminary No growth-Final to follow 01/28/25 19:32 Blood Culture (Wb) - Anticubital Left Blood Culture - Preliminary No growth in 48 hours. 01/28/25 19:15 Blood Culture (Wb) - Anticubital Left Blood Culture - Preliminary No growth in 48 hours. 01/29/25 09:03 Wound Abcess - Aerobic & Anaerobic Swabs Gram Stain - Final 01/29/25 09:18 Wound Drainage - Pelvic Gram Stain - Final Radiography Diagnostic Testing: Radiology Impression Chest X-Ray 01/31/25 05:30 IMPRESSION: Grossly unchanged exam. Stable mild cardiomegaly. Reading Location: [facility] Echocardiogram 01/31/25 06:47 Interpretation Summary The left ventricular ejection fraction is 65 %. Mild concentric left ventricular hypertrophy. Stage 1 diastolic dysfunction. The left atrium is moderately enlarged. Mild (1+) mitral valve insufficiency. Ordering Physician: Mony Cisneros Referring Physician: Librado Ybarra Performed By: Daija Bello RCS Assessment & Plan (1) Postoperative abscess of pelvis in female: COMMENT: s/p surgical drainage. HARMEET drain in. ceftriaxone and flagyl, clindamycin (2) Postoperative abdominal pain: (3) S/P laparoscopic assisted vaginal hysterectomy (LAVH): COMMENT: sm fibroid aub pelvic pain PLAN: Plan continue supportive care, appreciate medicine input. reviewed echo results with patient. continue current treatment plan, await culture results and advance diet
[2025-01-31] MEDS: 0.9% Normal Saline (250mL Bag) 250 ML 15 ML IV (18:27)
[2025-01-31] MEDS: Ceftriaxone 2 GM in 0.9% Normal Saline (50mL MB+) 50 ML IV (21:46)
[2025-02-01] VITALS (8 sets, daily range): BP systolic 111–130; BP diastolic 72–87; PULSE 79–87; RESP 15–18; TEMP 36.6–36.8; O2SAT 92–97
[2025-02-01] MEDS: Clindamycin 600 MG/50 ML BAG 150 MG IV ×4 (00:52→17:55)
[2025-02-01] MEDS: OMEPRAZOLE 40 MG CAPSULE.DR PO ×2 (05:26→15:42)
[2025-02-01] MEDS: metroNIDAZOLE 500 MG/100 ML BAG 100 MG IV ×3 (06:45→22:45)
[2025-02-01 07:24] LABS: Hematocrit 24.2 % (37-47); Hemoglobin 8.2 g/dL (12.0-15.0); Mean Corp Hgb Conc 33.9 g/dL (32-36); Mean Corpuscular Volume 86.7 fL (81-99); Mean Platelet Vol. 9.8 fl (6.2-12.0); Platelet Count 327 K/mm3 (150-450); RBC Distribution Width CV 13.2 % (11.6-14.6); RBC Distribution Width SD 41.8 fl (35.1-43.9); Red Blood Count 2.79 M/mm3 (4.2-5.4); White Blood Count 8.6 K/mm3 (4.4-11.0)
[2025-02-01 08:18] LABS: Anion Gap 11 (5-15); BUN 4 mg/dL (4-19); BUN/Creat Ratio 9.8 RATIO (10-20); Calcium,Total 8.7 mg/dL (7.6-11.0); Carbon Dioxide 25.2 mmol/L (21.0-32.0); Chloride 104 mmol/L (98-108); Estimated Creatinine Clearance 182.31 ml/min (50-250); Glucose 109 mg/dL (70-99); Potassium 2.9 mmol/L (3.3-5.1)
[2025-02-01] MEDS: buPROPion (XL) 150 MG TABLET.XL PO (08:49)
[2025-02-01] MEDS: Lactobacillis Acidophilus 1 CAP PO ×2 (08:49→21:48)
[2025-02-01] MEDS: Potassium Chloride Oral Tablet 20 MEQ PO (08:49)
[2025-02-01] MEDS: Cholecalciferol (VIT D3) 25 MCG TABLET (1,000 UNITS) 50 MCG PO (08:49)
[2025-02-01] MEDS: Potassium Chloride 10mEq/100mL 10 MEQ/100 ML IV.SOLN. 100 MEQ IV BOLUS ×2 (08:58→10:38)
[2025-02-01] MEDS: 0.9% Saline Lock 10 ML Syringe IV (10:38)
--- NOTE | 2025-02-01 13:06 | PCM.PN.OB ---
Subjective Subjective patient continuing to feel better, no CP sob improving pain controlled, appetite stil down but tolerating po some nausea. Objective Data Objective Data Vital Signs: Vital Signs Temp Pulse Resp BP Pulse Ox O2 Del Method O2 Flow Rate 97.8 F 83 18 126/72 H 97 Room Air 2 02/01/25 08:40 02/01/25 08:40 02/01/25 08:41 02/01/25 08:40 02/01/25 08:40 02/01/25 08:41 01/30/25 20:00 FiO2 94 02/01/25 03:00 Oxygen Flow Rate (L/min) 2 Oxygen Delivery Method Room Air Weight: 206 lb Body Mass Index (BMI) 35.3 Intake & Output: Intake and Output for Last 24 Hours 01/30/25 01/31/25 02/01/25 22:59 23:59 23:59 Intake Total 3150 / 3150 450 / 450 800 / 800 Output Total 2565 / 2565 2145 / 2145 1305 / 1305 Balance 585 / 585 -1695 / -1695 -505 / -505 Lab / Micro Data 02/02/25 03:31 02/02/25 03:31 Labs: Laboratory Results - last 24 hr 02/01/25 07:05: WBC 8.6, RBC 2.79 L, Hgb 8.2 L, Hct 24.2 L, MCV 86.7, MCH 29.4, MCHC 33.9, RDW Std Deviation 41.8, RDW Coeff of Tania 13.2, Plt Count 327, MPV 9.8, Sodium 139, Potassium 2.9 L, Chloride 104, Carbon Dioxide 25.2, Anion Gap 11, BUN 4, Creatinine 0.45 L, Estim Creat Clear Calc 182.31, Est GFR (MDRD) Non-Af 124, BUN/Creatinine Ratio 9.8 L, Glucose 109 H, Calcium 8.7 Micro: Microbiology 01/29/25 09:18 Wound Drainage - Pelvic Gram Stain - Final 01/29/25 09:18 Wound Drainage - Pelvic Anaerobic Culture - Preliminary 01/29/25 09:03 Wound Abcess - Tissue Gram Stain - Final 01/29/25 09:03 Wound Abcess - Tissue Wound Culture - Preliminary No growth-Final to follow 01/29/25 09:03 Wound Abcess - Tissue Anaerobic Culture - Preliminary 01/29/25 09:03 Wound Abcess - Aerobic & Anaerobic Swabs Gram Stain - Final 01/29/25 09:03 Wound Abcess - Aerobic & Anaerobic Swabs Anaerobic Culture - Preliminary 01/28/25 16:19 Urine, Clean Catch Urine Culture - Final Culture exhibits no growth. 01/28/25 19:32 Blood Culture (Wb) - Anticubital Left Blood Culture - Preliminary No growth in 48 hours. 01/28/25 19:15 Blood Culture (Wb) - Anticubital Left Blood Culture - Preliminary No growth in 48 hours. Radiography Diagnostic Testing: Radiology Impression Echocardiogram 01/31/25 06:47 Interpretation Summary The left ventricular ejection fraction is 65 %. Mild concentric left ventricular hypertrophy. Stage 1 diastolic dysfunction. The left atrium is moderately enlarged. Mild (1+) mitral valve insufficiency. Ordering Physician: Mony Cisneros Referring Physician: Librado Ybarra Performed By: Daija Bello RCS Constitutional Constitutional: Reports systems reviewed and no addt'l complaints, except as documented Cardiovascular Cardiovascular: Reports as per HPI Respiratory/Chest Respiratory/Chest: Reports as per HPI Gastrointestinal Gastrointestinal: Reports as per HPI Physical Exam Const alert and oriented x3 Resp Auscultation: clear to auscultation bilaterally; Negative for crackles, rales, rhonchi or wheezes Cardio Rate: regular rate Rhythm: regular rhythm Assessment & Plan (1) S/P laparoscopic assisted vaginal hysterectomy (LAVH): COMMENT: sm fibroid aub pelvic pain (2) Postoperative hematoma: (3) Postoperative abscess of pelvis in female: COMMENT: s/p surgical drainage. HARMEET drain in. ceftriaxone and flagyl, clindamycin (4) Postoperative abdominal pain: PLAN: Plan Abscess- admitted for IV antibiotics- ceftriaxone, clinda, and flagyl due to allergies, s/p laparoscopic drainage. continue HARMEET drain until 25 or less x 2 days. DVT prophylaxis- scds, lovenox. await culture results postop care- ambulate and advance diet. SOB- given lasix x 2, appreciate hospitalist following for management. s/p echo. fluid status equalizing, diuresing well hypokalemia- replacing, likely due to fluid replacement and lasix continue home meds
[2025-02-01] MEDS: 0.9% Normal Saline (250mL Bag) 250 ML 15 ML IV (15:42)
--- NOTE | 2025-02-01 16:17 | PN.HOSP_ITS ---
Reason for Visit
--- NOTE | 2025-02-01 16:17 | PCM.PN.HOSP ---
Reason for Visit Chief Complaint: Suboptimal PO intake Subjective Subjective SOB significantly improved, minimal dry cough, no chest pain. Reports trying to improve her PO intake but still not very hungry. Not nauseated Objective Data Objective Data Vital Signs: Vital Signs Temp Pulse Resp BP Pulse Ox O2 Del Method O2 Flow Rate 97.8 F 83 18 130/77 H 97 Room Air 2 02/01/25 14:02 02/01/25 14:02 02/01/25 14:02 02/01/25 14:02 02/01/25 14:02 02/01/25 14:02 01/30/25 20:00 FiO2 94 02/01/25 03:00 Oxygen Flow Rate (L/min) 2 Oxygen Delivery Method Room Air Weight: 93.44 kg Body Mass Index (BMI) 35.3 Intake & Output: Intake and Output for Last 24 Hours 01/30/25 01/31/25 02/01/25 22:59 23:59 23:59 Intake Total 3150 / 3150 450 / 450 900 / 900 Output Total 2565 / 2565 2145 / 2145 2215 / 2215 Balance 585 / 585 -1695 / -1695 -1315 / -1315 Lab / Micro Data 02/01/25 07:05 02/01/25 07:05 Labs: Laboratory Results - last 24 hr 02/01/25 07:05: WBC 8.6, RBC 2.79 L, Hgb 8.2 L, Hct 24.2 L, MCV 86.7, MCH 29.4, MCHC 33.9, RDW Std Deviation 41.8, RDW Coeff of Tania 13.2, Plt Count 327, MPV 9.8, Sodium 139, Potassium 2.9 L, Chloride 104, Carbon Dioxide 25.2, Anion Gap 11, BUN 4, Creatinine 0.45 L, Estim Creat Clear Calc 182.31, Est GFR (MDRD) Non-Af 124, BUN/Creatinine Ratio 9.8 L, Glucose 109 H, Calcium 8.7 Micro: Microbiology 01/29/25 09:18 Wound Drainage - Pelvic Gram Stain - Final 01/29/25 09:18 Wound Drainage - Pelvic Anaerobic Culture - Preliminary 01/29/25 09:03 Wound Abcess - Tissue Gram Stain - Final 01/29/25 09:03 Wound Abcess - Tissue Wound Culture - Preliminary No growth-Final to follow 01/29/25 09:03 Wound Abcess - Tissue Anaerobic Culture - Preliminary 01/29/25 09:03 Wound Abcess - Aerobic & Anaerobic Swabs Gram Stain - Final 01/29/25 09:03 Wound Abcess - Aerobic & Anaerobic Swabs Anaerobic Culture - Preliminary 01/28/25 16:19 Urine, Clean Catch Urine Culture - Final Culture exhibits no growth. 01/28/25 19:32 Blood Culture (Wb) - Anticubital Left Blood Culture - Preliminary No growth in 48 hours. 01/28/25 19:15 Blood Culture (Wb) - Anticubital Left Blood Culture - Preliminary No growth in 48 hours. Physical Exam Narrative General: Alert, oriented, no apparent distress HEENT: Atraumatic, normocephalic Eyes: Anicteric, normal conjunctiva, extraocular movements grossly intact Neck: Supple Respiratory: Clear to auscultation bilaterally, normal respiratory effort Cardiovascular: Regular rate and rhythm GI: Soft Extremities: No edema Musculoskeletal: Moving all extremities Neuro: No overt focal neurological deficits Skin: No rashes appreciated Psych: Cooperative Assessment & Plan Assessment/Plan (1) Grade I diastolic dysfunction: PLAN: Plan #SOB on exertion - Patient required high-volume fluid resuscitation postsurgery due to hypotension, went on to develop some shortness of breath on exertion and chest x-ray with mild pulmonary edema. proBNP slightly elevated and it was suspected that she was overloaded from the amount of fluid which was unavoidable given her clinical condition at the time however patient stabilized - Responded very well to IV Lasix x 2 with good urine output and patient saturating 99% on room air with no further complaints of shortness of breath - Echocardiogram with stage I diastolic dysfunction and an EF of 65% with no wall motion abnormalities - Discussed with primary, no further Lasix needed, can follow-up with the primary care doc for long-term management of risk factors like hypertension and obesity - Would also encourage compliance with CPAP -02/01:Pt significantly approved, received lasix x2, suspect this was d/t the fluids she needed for recuscitation w/ infection. No further need for lasix at this time. Discussed w/ MANUFACTURING BUSINESS ANALYST #Hypokalemia -02/01: -Replace -Repeat in the AM Chronic medical problems and/or problems not being actively addressed during today's encounter: #OLE -Continue home NIPPV if applicable #Depression/anxiety -Continue home medications #GERD -Continue PPI # Postoperative abscess in pelvis - On antibiotics with cultures pending - Management per primary #DVT ppx: Lovenox subcu Ivelisse Vazquez MD Time spent in the patient's overall evaluation, decision-making process, review of diagnostic data, adjustment of management, discussion with other providers, nursing and ancillary staff involved in patient's care documentation, 37 Minutes Charges/Coding Visit Charges Inpatient E&M: 81865 [facility] Hosp L1
--- NOTE | 2025-02-01 19:58 | CPS ---
pt refused to wear, states she will start to wear hers at home but does not want to wear our machine here
[2025-02-01] MEDS: Ceftriaxone 2 GM in 0.9% Normal Saline (50mL MB+) 50 ML IV (21:56)
[2025-02-02 04:10] LABS: Hematocrit 23.8 % (37-47); Hemoglobin 7.7 g/dL (12.0-15.0); Immature Granulocytes Count 0.180 X10^3/uL (0.0-0.0); Mean Corp Hgb Conc 32.4 g/dL (32-36); Mean Corpuscular Volume 87.8 fL (81-99); Mean Platelet Vol. 9.8 fl (6.2-12.0); NRBC Flagged by Analyzer 0.2 % (0-5); Platelet Count 316 K/mm3 (150-450); RBC Distribution Width CV 13.6 % (11.6-14.6); RBC Distribution Width SD 43.9 fl (35.1-43.9); Red Blood Count 2.71 M/mm3 (4.2-5.4); White Blood Count 8.7 K/mm3 (4.4-11.0)
[2025-02-02 04:30] VITALS: BP 140/75; PULSE 78; RESP 15; TEMP 36.7; O2SAT 95
[2025-02-02 04:40] LABS: Anion Gap 11 (5-15); BUN 5 mg/dL (4-19); BUN/Creat Ratio 10.5 RATIO (10-20); Calcium,Total 8.7 mg/dL (7.6-11.0); Carbon Dioxide 25.1 mmol/L (21.0-32.0); Chloride 104 mmol/L (98-108); Estimated Creatinine Clearance 178.35 ml/min (50-250); Glucose 96 mg/dL (70-99); Potassium 2.9 mmol/L (3.3-5.1)
[2025-02-02] MEDS: Clindamycin 600 MG/50 ML BAG 150 MG IV ×3 (05:02→11:21)
[2025-02-02] MEDS: metroNIDAZOLE 500 MG/100 ML BAG 100 MG IV (05:52)
[2025-02-02] MEDS: OMEPRAZOLE 40 MG CAPSULE.DR PO (07:26)
[2025-02-02 07:35] VITALS: O2SAT 98
--- NOTE | 2025-02-02 07:59 | PCM.PN.OB ---
Subjective Subjective patient continuing to feel better, no CP sob improving pain controlled, appetite stil down but tolerating po some nausea. Objective Data Objective Data Vital Signs: Vital Signs Temp Pulse Resp BP Pulse Ox O2 Del Method O2 Flow Rate 98.0 F 78 15 140/75 H 95 Room Air 2 02/02/25 04:30 02/02/25 04:30 02/02/25 04:30 02/02/25 04:30 02/02/25 04:30 02/02/25 04:30 01/30/25 20:00 FiO2 94 02/01/25 03:00 Oxygen Flow Rate (L/min) 2 Oxygen Delivery Method Room Air Weight: 206 lb Body Mass Index (BMI) 35.3 Intake & Output: Intake and Output for Last 24 Hours 01/31/25 02/01/25 02/02/25 23:59 23:59 23:59 Intake Total 450 / 450 1100 / 1100 100 / 100 Output Total 2145 / 2145 2765 / 2765 1240 / 1240 Balance -1695 / -1695 -1665 / -1665 -1140 / -1140 Lab / Micro Data 02/02/25 03:31 02/02/25 03:31 Labs: Laboratory Results - last 24 hr 02/01/25 07:05: Sodium 139, Potassium 2.9 L, Chloride 104, Carbon Dioxide 25.2, Anion Gap 11, BUN 4, Creatinine 0.45 L, Estim Creat Clear Calc 182.31, Est GFR (MDRD) Non-Af 124, BUN/Creatinine Ratio 9.8 L, Glucose 109 H, Calcium 8.7 02/02/25 03:31: WBC 8.7, RBC 2.71 L, Hgb 7.7 L, Hct 23.8 L, MCV 87.8, MCH 28.4, MCHC 32.4, RDW Std Deviation 43.9, RDW Coeff of Tania 13.6, Plt Count 316, MPV 9.8, Immature Gran % (Auto) 2.100 H, Neut % (Auto) 69.1, Lymph % (Auto) 16.0 L, [place] % (Auto) 7.9, Eos % (Auto) 4.2, Baso % (Auto) 0.7, Absolute Neuts (auto) 6.0, Absolute Lymphs (auto) 1.39, Nucleated RBC % 0.2, Sodium 139, Potassium 2.9 L, Chloride 104, Carbon Dioxide 25.1, Anion Gap 11, BUN 5, Creatinine 0.46 L, Estim Creat Clear Calc 178.35, Est GFR (MDRD) Non-Af 124, BUN/Creatinine Ratio 10.5, Glucose 96, Calcium 8.7 Micro: Microbiology 01/29/25 09:18 Wound Drainage - Pelvic Gram Stain - Final 01/29/25 09:18 Wound Drainage - Pelvic Anaerobic Culture - Preliminary 01/29/25 09:03 Wound Abcess - Tissue Gram Stain - Final 01/29/25 09:03 Wound Abcess - Tissue Wound Culture - Preliminary No growth-Final to follow 01/29/25 09:03 Wound Abcess - Tissue Anaerobic Culture - Preliminary 01/29/25 09:03 Wound Abcess - Aerobic & Anaerobic Swabs Gram Stain - Final 01/29/25 09:03 Wound Abcess - Aerobic & Anaerobic Swabs Anaerobic Culture - Preliminary 01/28/25 16:19 Urine, Clean Catch Urine Culture - Final Culture exhibits no growth. 01/28/25 19:32 Blood Culture (Wb) - Anticubital Left Blood Culture - Preliminary No growth in 48 hours. 01/28/25 19:15 Blood Culture (Wb) - Anticubital Left Blood Culture - Preliminary No growth in 48 hours. Radiography Diagnostic Testing: Radiology Impression Echocardiogram 01/31/25 06:47 Interpretation Summary The left ventricular ejection fraction is 65 %. Mild concentric left ventricular hypertrophy. Stage 1 diastolic dysfunction. The left atrium is moderately enlarged. Mild (1+) mitral valve insufficiency. Ordering Physician: Mony Cisneros Referring Physician: Librado Ybarra Performed By: Daija Bello RCS Constitutional Constitutional: Reports systems reviewed and no addt'l complaints, except as documented Cardiovascular Cardiovascular: Reports as per HPI Respiratory/Chest Respiratory/Chest: Reports as per HPI Gastrointestinal Gastrointestinal: Reports as per HPI Physical Exam Const alert and oriented x3 Resp Auscultation: clear to auscultation bilaterally; Negative for crackles, rales, rhonchi or wheezes Cardio Rate: regular rate Rhythm: regular rhythm Assessment & Plan (1) S/P laparoscopic assisted vaginal hysterectomy (LAVH): COMMENT: sm fibroid aub pelvic pain (2) Postoperative hematoma: (3) Postoperative abscess of pelvis in female: COMMENT: s/p surgical drainage. HARMEET drain in. ceftriaxone and flagyl, clindamycin (4) Postoperative abdominal pain: PLAN: Plan Abscess- admitted for IV antibiotics- ceftriaxone, clinda, and flagyl due to allergies, s/p laparoscopic drainage. continue HARMEET drain until 25 or less x 2 days. await culture results DVT prophylaxis- scds, lovenox. postop care- ambulate and regular diet SOB- given lasix x 2, appreciate hospitalist following for management. s/p echo. fluid status equalizing, diuresing well hypokalemia- replacing, likely due to fluid replacement and lasix continue home meds
[2025-02-02 08:26] VITALS: BP 147/90; PULSE 80; RESP 16; TEMP 36.2; O2SAT 100
--- NOTE | 2025-02-02 09:33 | DCINST_ITS ---
Discharge Instructions
--- NOTE | 2025-02-02 09:33 | PCM.DC ---
Discharge Instructions DC O2, CPAP, BIPAP needs Home O2 Discharge instructions: No Dressing / Incision Discharge Activity: Return to Normal Activity, May Not Drive ( while taking narcotic pain meds, when pain free), May Shower (once drain is removed) and May Take a Tub Bath (in 4 weeks) May resume sexual activity in: 4 weeks Weight Bearing Status: Full weight bearing Dressing / Incision Call your doctor if your incision/area has: Continuous Slow Oozing, Sudden Increased Bleeding, Increased Pain/ Swelling, Increased Redness and Foul Smelling Discharge Call your doctor if you observe: Fever of 101 or Higher, Using more than 1 pad per hour, Shortness of breath, Chest pain and Uncontrolled pain Suture Line Care: Avoid Pulling/Pushing and Avoid Pinching/Bending Remove Dressing in: leave in place till F/U Cleanse incision/area with: Soap & Water and Keep Dressing Clean & Dry Drain: Suction (empty as needed and record amount to tell doctor output per 24 hours) Additional Dressing/Incision Instructions:: keep left incision site skin dry, change dressing as needed to achieve this Follow Up Care When: Call to make an appointment with your doctor for a fu/incision check friday and to have drain removed, repeat labs, come at 9:20 on friday with SM Test Results: Test results from this visit will be discussed in further detail at your follow-up appointment, if applicable. Discharge Plan Admission Admit Date/Time: 01/28/25 18:46 Attending Provider: Mony Cisneros Primary Care Provider: Librado Ybarra Consulting Providers: Ivelisse Vazquez Instructions Additional Instructions / Restrictions: follow up with Dr Cisneros in the office at 9:20 on Friday, you are already scheduled. Discharge Orders/Prescriptions Prescriptions: New clindamycin HCl [Cleocin HCl] 300 mg capsule 300 mg PO Q6H 7 Days Qty: 28 0RF oxycodone-acetaminophen [Percocet] 5-325 mg tablet 1 tab PO Q4H PRN (Reason: pain) 7 Days Qty: 28 0RF ondansetron 4 mg tablet,disintegrating 4 mg PO Q8H PRN (Reason: nausea and vomiting) Qty: 30 0RF naproxen 500 mg tablet 500 mg PO BID PRN PRN (Reason: Pain) Qty: 30 1RF potassium chloride [K-Tab] 20 mEq tablet extended release 20 meq PO BID 2 Days Qty: 4 0RF No Action mecobalamin (vitamin B12) 500 mcg tablet,chewable 2,500 mcg PO DAILY escitalopram oxalate 10 mg tablet 15 mg PO QHS 90 Days Qty: 135 1RF Rx Instructions: TAKE 1.5 TABLET BY MOUTH ONCE DAILY bupropion HCl 150 mg tablet extended release 24 hr 150 mg PO QAM Qty: 90 1RF lorazepam 0.5 mg tablet 0.5 mg PO DAILY PRN (Reason: anxiety) Qty: 30 1RF oxycodone-acetaminophen [Percocet] 5-325 mg tablet 1 tab PO Q4H PRN (Reason: pain) 7 Days Qty: 28 0RF naproxen 500 mg tablet 500 mg PO BID PRN PRN (Reason: pain) omega 3-ugb-mbg-fish oil [Fish Oil] 1,200 (144-216) mg capsule 1 cap PO DAILY Probiotic Acidophilus 250 million cell capsule 500 mmu cells PO DAILY cholecalciferol (vitamin D3) [Vitamin D3] 50 mcg (2,000 unit) capsule 50 mcg PO DAILY cyclobenzaprine 10 mg tablet 10 mg PO TID PRN (Reason: muscle spasm) Qty: 30 2RF omeprazole 40 mg capsule,delayed release(DR/EC) 40 mg PO BID 90 Days Qty: 180 3RF ondansetron 4 mg tablet,disintegrating 4 mg PO Q8H PRN (Reason: nausea and vomiting) Qty: 30 2RF Referrals / Follow Up: Librado Ybarra DO [Primary Care Provider, Family Practice] Mony Cisneros MD [Med Staff - Active Staff, Obstetrics-Gynecology (OBGYN)] Disposition Disposition (needs filled in before D/C Order can be placed): Home, Self Care
[2025-02-02] MEDS: buPROPion (XL) 150 MG TABLET.XL PO (09:46)
[2025-02-02] MEDS: Cholecalciferol (VIT D3) 25 MCG TABLET (1,000 UNITS) 50 MCG PO (09:47)
[2025-02-02] MEDS: Lactobacillis Acidophilus 1 CAP PO (09:47)
--- NOTE | 2025-02-02 09:51 | PCM.DC.SUM ---
Providers Date of Admission: 01/28/25 Primary Care Physician: Dr. Librado Ybarra, Consultations 01/31/25 06:47 Consult: Hospitalist Routine Consulting Provider: Ivelisse Vazquez Reason for Consult: pelvic abscess EMERGENT Consult: No MD Notified: Yes Date Notified: 01/31/25 Time Notified: 06:50 Method of Notification: Text Reason For Visit: PELVIC ABSCESS Diagnosis Discharge Diagnosis (1) S/P laparoscopic assisted vaginal hysterectomy (LAVH): Status: Acute Code(s): Z90.710 - Acquired absence of both cervix and uterus (2) Postoperative hematoma: Status: Acute (3) Postoperative abscess of pelvis in female: Status: Acute Code(s): T81.49XA - Infection following a procedure, other surgical site, initial encounter; N73.9 - Female pelvic inflammatory disease, unspecified (4) Postoperative abdominal pain: Status: Acute Code(s): R10.9 - Unspecified abdominal pain; G89.18 - Other acute postprocedural pain Plan Abscess- admitted for IV antibiotics- ceftriaxone, clinda, and flagyl due to allergies, s/p laparoscopic drainage. continue HARMEET drain until 25 or less x 2 days. await culture results DVT prophylaxis- scds, lovenox. postop care- ambulate and regular diet SOB- given lasix x 2, appreciate hospitalist following for management. s/p echo. fluid status equalizing, diuresing well hypokalemia- replacing, likely due to fluid replacement and lasix continue home meds Medications at Discharge Home Medications Lactobacillus acidophilus 250 million cell capsule (Probiotic Acidophilus) 500 mmu cells PO DAILY probiotic 05/20/24 cholecalciferol (vitamin D3) 50 mcg (2,000 unit) capsule (Vitamin D3) 50 mcg PO DAILY supplement 05/20/24 omega 3-rmg-hlg-fish oil 1,200 mg (144 mg-216 mg) capsule (Fish Oil) 1 cap PO DAILY supplement 05/20/24 cyclobenzaprine 10 mg tablet 10 mg PO TID PRN muscle spasm #30 tabs 07/27/24 omeprazole 40 mg capsule,delayed release 40 mg PO BID GERD 90 days #180 caps 08/11/24 ondansetron 4 mg disintegrating tablet 4 mg PO Q8H PRN nausea and vomiting #30 tabs 09/30/24 mecobalamin (vitamin B12) 500 mcg chewable tablet 2,500 mcg PO DAILY supplement 10/22/24 bupropion HCl 150 mg 24 hr tablet, extended release 150 mg PO QAM depression #90 TABLETS 12/06/24 escitalopram oxalate 10 mg tablet 15 mg (1.5 x 10 mg) PO QHS depression 90 days #135 tabs 12/06/24 lorazepam 0.5 mg tablet 0.5 mg PO DAILY PRN anxiety #30 tabs 12/06/24 oxycodone-acetaminophen 5 mg-325 mg tablet (Percocet) 1 tab PO Q4H PRN pain 7 days #28 tabs 01/27/25 naproxen 500 mg tablet 500 mg PO BID PRN PRN pain 01/28/25 clindamycin HCl 300 mg capsule (Cleocin HCl) 300 mg PO Q6H 7 days #28 caps 02/02/25 naproxen 500 mg tablet 500 mg PO BID PRN PRN Pain #30 tabs 02/02/25 ondansetron 4 mg disintegrating tablet 4 mg PO Q8H PRN nausea and vomiting #30 tabs 02/02/25 oxycodone-acetaminophen 5 mg-325 mg tablet (Percocet) 1 tab PO Q4H PRN pain 7 days #28 tabs 02/02/25 potassium chloride 20 mEq tablet,extended release (K-Tab) 20 meq PO BID 2 days #4 tabs 02/02/25 cefdinir 300 mg capsule 300 mg PO BID #20 caps 02/03/25 Hospital Course Operations - (laparoscopic drainage of abscess and hematoma, HARMEET drain placement) Procedures 2-D Echocardiogram and EKG Summary of Care Provided Hospital Course: Patient was initially being followed as an outpatient 10 days postop from laparoscopic assisted vaginal hysterectomy with a pelvic hematoma. Patient had a CT scan and a pelvic ultrasound showing a hematoma and then on Friday patient developed a significant fever and presented with increasing abdominal pain and upon CT scan showed abscess formation with suspicion for infection. Lactic acid was negative upon admission and blood cultures were drawn, patient was admitted for IV antibiotics and surgical drainage. It was previously discussed earlier in the week with 2 different radiologists that they did not recommend CT-guided drainage of this area therefore the decision for surgical management was made. Due to patient's allergies IV ceftriaxone and Flagyl were started and patient was taken to the operating room underwent diagnostic laparoscopy and opening of the hematoma and abscess with irrigation and drainage, HARMEET drain placement. General surgery was called in during the case to confirm successful drainage, lysis of adhesions, and integrity of the bowel during the case. Postoperatively the patient did have an inflammatory response from the infection and clindamycin was added. Patient had hypotension postoperativley which eventually responded to IV fluid resuscitation, however she developed fluid overload that required IV lasix therapy. Hospitalist service was consulted, echo was done and no acute findings were seen. by POD 4 after laparoscopic drainage patient was stable for discharge to home, afebrile and no leukocytosis, tolerating po and having bowel movements. Pain was controlled. prelim cultures suggested clindamycin and then cefdinir should be prescribed. patient would be followed closely as OP and leave HARMEET drain in until less than 25 cc x 2 days was recorded, and potassium replcaement would continue orally and be checked again at the beginning of the week. Weight / BMI Weight Weight: 206 lb Body Mass Index (BMI) 35.3 ABG / Lab / Microbiology Data 02/02/25 03:31 02/02/25 03:31 Laboratory: Laboratory Results - last 24 hr 02/02/25 03:31: WBC 8.7, RBC 2.71 L, Hgb 7.7 L, Hct 23.8 L, MCV 87.8, MCH 28.4, MCHC 32.4, RDW Std Deviation 43.9, RDW Coeff of Tania 13.6, Plt Count 316, MPV 9.8, Immature Gran % (Auto) 2.100 H, Neut % (Auto) 69.1, Lymph % (Auto) 16.0 L, Ward % (Auto) 7.9, Eos % (Auto) 4.2, Baso % (Auto) 0.7, Absolute Neuts (auto) 6.0, Absolute Lymphs (auto) 1.39, Nucleated RBC % 0.2, Sodium 139, Potassium 2.9 L, Chloride 104, Carbon Dioxide 25.1, Anion Gap 11, BUN 5, Creatinine 0.46 L, Estim Creat Clear Calc 178.35, Est GFR (MDRD) Non-Af 124, BUN/Creatinine Ratio 10.5, Glucose 96, Calcium 8.7 Microbiology: Microbiology 01/29/25 09:18 Wound Drainage - Pelvic Gram Stain - Final 01/29/25 09:18 Wound Drainage - Pelvic Wound Culture - Preliminary Cutibacterium acnes 01/29/25 09:18 Wound Drainage - Pelvic Anaerobic Culture - Final Anaerobic cocci Prevotella disiens Clostridium group 01/29/25 09:03 Wound Abcess - Aerobic & Anaerobic Swabs Gram Stain - Final 01/29/25 09:03 Wound Abcess - Aerobic & Anaerobic Swabs Wound Culture - Final Cutibacterium acnes 01/29/25 09:03 Wound Abcess - Aerobic & Anaerobic Swabs Anaerobic Culture - Final Prevotella bivia Anaerobic cocci 01/29/25 09:03 Wound Abcess - Tissue Gram Stain - Final 01/29/25 09:03 Wound Abcess - Tissue Wound Culture - Final Cutibacterium acnes 01/29/25 09:03 Wound Abcess - Tissue Anaerobic Culture - Final Anaerobic cocci 01/28/25 19:32 Blood Culture (Wb) - Anticubital Left Blood Culture - Final No growth in 5 days. 01/28/25 19:15 Blood Culture (Wb) - Anticubital Left Blood Culture - Final No growth in 5 days. 01/28/25 16:19 Urine, Clean Catch Urine Culture - Final Culture exhibits no growth. D/C Instructions May resume sexual activity in: 4 weeks Weight Bearing Status: Full weight bearing Call your doctor if your incision/area has: Continuous Slow Oozing, Sudden Increased Bleeding, Increased Pain/ Swelling, Increased Redness and Foul Smelling Discharge Call your doctor if you observe: Fever of 101 or Higher, Using more than 1 pad per hour, Shortness of breath, Chest pain and Uncontrolled pain Suture Line Care: Avoid Pulling/Pushing and Avoid Pinching/Bending Cleanse incision/area with: Soap & Water and Keep Dressing Clean & Dry Drain: Suction (empty as needed and record amount to tell doctor output per 24 hours) Additional Dressing/Incision Instructions: keep left incision site skin dry, change dressing as needed to achieve this DC O2, CPAP, BIPAP Needs Home O2 Discharge instructions: No When: Call to make an appointment with your doctor for a fu/incision check friday and to have drain removed, repeat labs, come at 9:20 on friday with Meaningful Use Info Meaningful Use Meaningful Use Diagnoses (Choose all that apply): None applicable Discharge Plan Admission Admit Date/Time: 01/28/25 18:46 Attending Provider: Mony Cisneros Primary Care Provider: Librado Ybarra Consulting Providers: Ivelisse Vazquez Instructions Additional Instructions / Restrictions: follow up with Dr Cisneros in the office at 9:20 on Friday, you are already scheduled. Discharge Orders/Prescriptions Prescriptions: New clindamycin HCl [Cleocin HCl] 300 mg capsule 300 mg PO Q6H 7 Days Qty: 28 0RF oxycodone-acetaminophen [Percocet] 5-325 mg tablet 1 tab PO Q4H PRN (Reason: pain) 7 Days Qty: 28 0RF ondansetron 4 mg tablet,disintegrating 4 mg PO Q8H PRN (Reason: nausea and vomiting) Qty: 30 0RF naproxen 500 mg tablet 500 mg PO BID PRN PRN (Reason: Pain) Qty: 30 1RF potassium chloride [K-Tab] 20 mEq tablet extended release 20 meq PO BID 2 Days Qty: 4 0RF No Action mecobalamin (vitamin B12) 500 mcg tablet,chewable 2,500 mcg PO DAILY escitalopram oxalate 10 mg tablet 15 mg PO QHS 90 Days Qty: 135 1RF Rx Instructions: TAKE 1.5 TABLET BY MOUTH ONCE DAILY bupropion HCl 150 mg tablet extended release 24 hr 150 mg PO QAM Qty: 90 1RF lorazepam 0.5 mg tablet 0.5 mg PO DAILY PRN (Reason: anxiety) Qty: 30 1RF oxycodone-acetaminophen [Percocet] 5-325 mg tablet 1 tab PO Q4H PRN (Reason: pain) 7 Days Qty: 28 0RF cefdinir 300 mg capsule 300 mg PO BID Qty: 20 0RF naproxen 500 mg tablet 500 mg PO BID PRN PRN (Reason: pain) omega 8-ebr-rat-fish oil [Fish Oil] 1,200 (144-216) mg capsule 1 cap PO DAILY Probiotic Acidophilus 250 million cell capsule 500 mmu cells PO DAILY cholecalciferol (vitamin D3) [Vitamin D3] 50 mcg (2,000 unit) capsule 50 mcg PO DAILY cyclobenzaprine 10 mg tablet 10 mg PO TID PRN (Reason: muscle spasm) Qty: 30 2RF omeprazole 40 mg capsule,delayed release(DR/EC) 40 mg PO BID 90 Days Qty: 180 3RF ondansetron 4 mg tablet,disintegrating 4 mg PO Q8H PRN (Reason: nausea and vomiting) Qty: 30 2RF Referrals / Follow Up: Librado Ybarra DO [Primary Care Provider, Family Practice] Mony Cisneros MD [Med Staff - Active Staff, Obstetrics-Gynecology (OBGYN)] Disposition Disposition (needs filled in before D/C Order can be placed): Home, Self Care
[2025-02-02] MEDS: Potassium Chloride Oral Tablet 20 MEQ 40 MEQ PO (09:55)
--- NOTE | 2025-02-02 10:16 | NURSING ---
added more fluid to pump infusion
--- NOTE | 2025-02-02 10:45 | PN.HOSP_ITS ---
Reason for Visit
--- NOTE | 2025-02-02 10:45 | PCM.PN.HOSP ---
Reason for Visit Chief Complaint: Suboptimal PO intake Subjective Subjective Doing well, no shortness of breath or cough. No new or acute complaints Objective Data Objective Data Vital Signs: Vital Signs Temp Pulse Resp BP Pulse Ox O2 Del Method O2 Flow Rate 97.2 F L 80 16 147/90 H 100 Room Air 2 02/02/25 08:26 02/02/25 08:26 02/02/25 08:26 02/02/25 08:26 02/02/25 08:26 02/02/25 08:26 01/30/25 20:00 FiO2 94 02/01/25 03:00 Oxygen Flow Rate (L/min) 2 Oxygen Delivery Method Room Air Weight: 93.44 kg Body Mass Index (BMI) 35.3 Intake & Output: Intake and Output for Last 24 Hours 01/31/25 02/01/25 02/02/25 23:59 23:59 23:59 Intake Total 450 / 450 1100 / 1100 450 / 450 Output Total 2145 / 2145 2765 / 2765 1475 / 1475 Balance -1695 / -1695 -1665 / -1665 -1025 / -1025 Lab / Micro Data 02/02/25 03:31 02/02/25 03:31 Labs: Laboratory Results - last 24 hr 02/02/25 03:31: WBC 8.7, RBC 2.71 L, Hgb 7.7 L, Hct 23.8 L, MCV 87.8, MCH 28.4, MCHC 32.4, RDW Std Deviation 43.9, RDW Coeff of Tania 13.6, Plt Count 316, MPV 9.8, Immature Gran % (Auto) 2.100 H, Neut % (Auto) 69.1, Lymph % (Auto) 16.0 L, [place] % (Auto) 7.9, Eos % (Auto) 4.2, Baso % (Auto) 0.7, Absolute Neuts (auto) 6.0, Absolute Lymphs (auto) 1.39, Nucleated RBC % 0.2, Sodium 139, Potassium 2.9 L, Chloride 104, Carbon Dioxide 25.1, Anion Gap 11, BUN 5, Creatinine 0.46 L, Estim Creat Clear Calc 178.35, Est GFR (MDRD) Non-Af 124, BUN/Creatinine Ratio 10.5, Glucose 96, Calcium 8.7 Micro: Microbiology 01/29/25 09:18 Wound Drainage - Pelvic Gram Stain - Final 01/29/25 09:18 Wound Drainage - Pelvic Wound Culture - Preliminary Gram positive venancio 01/29/25 09:03 Wound Abcess - Tissue Gram Stain - Final 01/29/25 09:03 Wound Abcess - Tissue Wound Culture - Preliminary Gram positive venancio 01/29/25 09:03 Wound Abcess - Aerobic & Anaerobic Swabs Gram Stain - Final 01/29/25 09:03 Wound Abcess - Aerobic & Anaerobic Swabs Wound Culture - Preliminary Gram positive venancio 01/28/25 16:19 Urine, Clean Catch Urine Culture - Final Culture exhibits no growth. 01/28/25 19:32 Blood Culture (Wb) - Anticubital Left Blood Culture - Preliminary No growth in 48 hours. 01/28/25 19:15 Blood Culture (Wb) - Anticubital Left Blood Culture - Preliminary No growth in 48 hours. Physical Exam Narrative General: Alert, oriented, no apparent distress HEENT: Atraumatic, normocephalic Eyes: extraocular movements grossly intact Neck: Supple Respiratory: normal respiratory effort Cardiovascular: no edema appreciated GI: nondistended Extremities: Moving all extremities Neuro: No overt focal neurological deficits Psych: Cooperative Assessment & Plan Assessment/Plan (1) Grade I diastolic dysfunction: PLAN: Plan #SOB on exertion - Patient required high-volume fluid resuscitation postsurgery due to hypotension, went on to develop some shortness of breath on exertion and chest x-ray with mild pulmonary edema. proBNP slightly elevated and it was suspected that she was overloaded from the amount of fluid which was unavoidable given her clinical condition at the time however patient stabilized - Responded very well to IV Lasix x 2 with good urine output and patient saturating 99% on room air with no further complaints of shortness of breath - Echocardiogram with stage I diastolic dysfunction and an EF of 65% with no wall motion abnormalities - Discussed with primary, no further Lasix needed, can follow-up with the primary care doc for long-term management of risk factors like hypertension and obesity - Would also encourage compliance with CPAP -02/01:Pt significantly approved, received lasix x2, suspect this was d/t the fluids she needed for recuscitation w/ infection. No further need for lasix at this time. Discussed w/ UNISAW OPERATOR -02/02: Resolved, okay to DC from hospitalist perspective. Follow-up with PCP for long-term monitoring and management of blood pressure as she has had quite variable blood pressures here so hesitant to start medication on discharge during patient's acute process/illness, encourage follow-up #Hypokalemia -02/01: -Replace -Repeat in the AM -02/02: Repleted, patient to be discharged today, recheck on Friday when she follows up Chronic medical problems and/or problems not being actively addressed during today's encounter: #OLE -Continue home NIPPV if applicable #Depression/anxiety -Continue home medications #GERD -Continue PPI # Postoperative abscess in pelvis - On antibiotics with cultures pending - Management per primary #DVT ppx: Lovenox subcu Ivelisse Vazquez MD Charges/Coding Visit Charges Inpatient E&M: 30260 Subs Hosp L1
--- NOTE | 2025-02-02 10:46 | PHA.DC_ITS ---
Pharmacy DC Med Counseling
--- NOTE | 2025-02-02 10:46 | PHA.DC.COU.R ---
Pharmacy [facility] has performed discharge medication counseling for this patient. The patient was counseled on the following discharge medications and changes in medications for homegoing review. - Clindamycin 300 mg capsule, Naproxen 500 mg tablet, Ondansetron 4 mg ODT, Oxycodone-acetaminophen 5/325 mg tablet, Potassium chloride 20 mEq tablet. The Reason for Use, instructions for use, and potential side effects were reviewed for all new medications. The patient's questions regarding all of their medications were answered. The patient was able to verbally demonstrate an understanding of their discharge medications. Medications at Discharge Home Medications Lactobacillus acidophilus 250 million cell capsule (Probiotic Acidophilus) 500 mmu cells PO DAILY probiotic 05/20/24 cholecalciferol (vitamin D3) 50 mcg (2,000 unit) capsule (Vitamin D3) 50 mcg PO DAILY supplement 05/20/24 omega 2-cyx-zmq-fish oil 1,200 mg (144 mg-216 mg) capsule (Fish Oil) 1 cap PO DAILY supplement 05/20/24 cyclobenzaprine 10 mg tablet 10 mg PO TID PRN muscle spasm #30 tabs 07/27/24 omeprazole 40 mg capsule,delayed release 40 mg PO BID GERD 90 days #180 caps 08/11/24 ondansetron 4 mg disintegrating tablet 4 mg PO Q8H PRN nausea and vomiting #30 tabs 09/30/24 mecobalamin (vitamin B12) 500 mcg chewable tablet 2,500 mcg PO DAILY supplement 10/22/24 bupropion HCl 150 mg 24 hr tablet, extended release 150 mg PO QAM depression #90 TABLETS 12/06/24 escitalopram oxalate 10 mg tablet 15 mg (1.5 x 10 mg) PO QHS depression 90 days #135 tabs 12/06/24 lorazepam 0.5 mg tablet 0.5 mg PO DAILY PRN anxiety #30 tabs 12/06/24 oxycodone-acetaminophen 5 mg-325 mg tablet (Percocet) 1 tab PO Q4H PRN pain 7 days #28 tabs 01/27/25 naproxen 500 mg tablet 500 mg PO BID PRN PRN pain 01/28/25 clindamycin HCl 300 mg capsule (Cleocin HCl) 300 mg PO Q6H 7 days #28 caps 02/02/25 naproxen 500 mg tablet 500 mg PO BID PRN PRN Pain #30 tabs 02/02/25 ondansetron 4 mg disintegrating tablet 4 mg PO Q8H PRN nausea and vomiting #30 tabs 02/02/25 oxycodone-acetaminophen 5 mg-325 mg tablet (Percocet) 1 tab PO Q4H PRN pain 7 days #28 tabs 02/02/25 potassium chloride 20 mEq tablet,extended release (K-Tab) 20 meq PO BID 2 days #4 tabs 02/02/25
--- NOTE | 2025-02-02 11:16 | CASEMGMT ---
TARSHA CM into pt room, pt lying in bed in no distress. Pt states she feels comfortable with drain care. She states that her will be working from home all week so she will not be alone. Pt states she has a CPAP at home but does not use but she can start using. Pt denies any homegoing needs.
== END 2025-02-02 12:14 | disposition home or self-care (01) | DRG 744 ==
LOC: ED 19:15 → MS3 19:24
PROVIDERS: Internal Medicine; Admitting Provider Obstetrics & Gynecology; Emergency Provider Emergency Medicine; PCP Family Medicine; Visit Provider Obstetrics & Gynecology
PROC: 0WJJ4ZZ Inspection of Pelvic Cavity, Percutaneous Endoscopic Approach (ICD-10-PCS; CPT 49320; principal; 2025-01-29 05:00)
DX: N73.9 Female pelvic inflammatory disease, unspecified (principal); N99.840 Postprocedural hematoma of a genitourinary system organ or structure following a genitourinary system procedure; T81.49XA Infection following a procedure, other surgical site, initial encounter; I10 Essential (primary) hypertension; F32.A Depression, unspecified; E66.9 Obesity, unspecified; G47.33 Obstructive sleep apnea (adult) (pediatric); K21.9 Gastro-esophageal reflux disease without esophagitis; E87.70 Fluid overload, unspecified; E87.6 Hypokalemia; F41.9 Anxiety disorder, unspecified; K66.0 Peritoneal adhesions (postprocedural) (postinfection); G89.18 Other acute postprocedural pain; Z79.899 Other long term (current) drug therapy; Z87.891 Personal history of nicotine dependence; Z90.710 Acquired absence of both cervix and uterus; Z68.35 Body mass index [BMI] 35.0-35.9, adult; X58.XXXA Exposure to other specified factors, initial encounter
CPT/HCPCS: 36415; 71046; 74177; 80048; 80053; 81001; 83605; 83880; 84443; 85025; 85027; 87015; 87040; 87070; 87075; 87077; 87086; 87102; 87116; 87176; 87205; 87206; 93005; 93306; 94660; 94668; 99284; Q9967; A4216; J0696; J1938; J2405

== ENCOUNTER 2025-02-05 18:41 | Emergency (ER) | payer OTHER, SELFPAY ==
[2025-02-05 18:42] VITALS: BP 148/82; PULSE 90; RESP 16; TEMP 37.6; O2SAT 98; BMI 34.8
--- OUTSIDE RECORDS SUMMARY | 2025-02-05 20:15 | XMS RPT_ITS | CCD ---
Author Organization [facility] Care Team Providers Care Transportation Job Titles Name Role Phone Dr. Librado Ybarra Primary Care Provider [phone] Dr. Librado Ybarra Referring Provider [phone] Faith BANERJEE, LAVONNE Blanc Attending Provider [phone] YUMI BROOKS Attending Unavailable BROOKS, YUMI SUMMER Primary Care Unavailable BROOKS, YUMI SUMMER Admitting Unavailable BROOKS, YUMI SUMMER Admitting Unavailable BROOKS, YUMI SUMMER Primary Care Unavailable BROOKS, YUMI SUMMER Attending Unavailable BROOKS, YUMI SUMMER Primary Care Unavailable BROOKS, YUMI SUMMER Attending Unavailable BROOKS, YUMI SUMMER Admitting Unavailable VASSAS, ERNESTO Admitting Unavailable VASSAS, ERNESTO Primary Care Unavailable VASSAS ERNESTO Attending Unavailable Unavailable Primary Care Provider UnavailMELISSA Laura Referring Unavailable MELISSA TOLLIVER Attending Unavailable Librado Ybarra Primary Care Unavailable Librado Ybarra Referring Unavailable Mony Cisneros Attending Unavailable Librado Ybarra Primary Care Unavailable Mony Cisneros Referring Unavailable Mony Cisneros Attending Unavailable Librado Ybarra Primary Care Unavailable Lorraine Law Attending Unavailabl e Lorraine Law Admitting Unavailabl Ivelisse Cardenas Attending Unavailable Ivelisse Vazquez Consulting Unavailable Mony Cisneros Admitting Unavailable Librado Ybarra Primary Care Unavailable Mony Cisneros Consulting Unavailable Mony Cisneros Attending Unavailable Librado Ybarra Primary Care Unavailable Hali Ruiz Referring Unavailable Hali Ruiz Attending Unavailable Librado Ybarra Primary Care Unavailable Hali Ruiz Referring Unavailable Hali Ruiz Attending Unavailable Librado Ybarra Primary Care Unavailable Spenser Eldridge Attending Unavailable Tate, Librado Primary Care Unavailable MarcanthonyMony Attending Unavailable Tate, Librado Primary Care Unavailable MarcanthonyMony Referring Unavailable MarcanthonyMony Attending Unavailable Tate, Librado Primary Care Unavailable AtanasovHali Referring Unavailable AtanasovHali Attending Unavailable Tate, Librado Primary Care Unavailable Tate, Librado Referring Unavailable AtanasovHali Attending Unavailable Tate, Librado Primary Care Unavailable MarcanthonyMony Consulting Unavailable MarcanthonyMony Attending Unavailable MarcanthonyMony Referring Unavailable Tate, Librado Referring Unavailable Friend, Erick Attending Unavailable Friend, Erick Consulting Unavailable Tate, Librado Primary Care Unavailable Mavericke VelTaryn mcclellanLorraine Consulting Unavailabl e Tate, Librado Primary Care Unavailable Vandana Lawfer Admitting Unavailabl e MarcanthonyMony Attending Unavailable Tate, Librado Primary Care Unavailable Tate, Librado Referring Unavailable Tate, Librado Attending Unavailable Tate, Librado Primary Care Unavailable Tate, Librado Referring Unavailable Tate, Librado Attending Unavailable Raphael Kidd Attending Unavailable Tate, Librado Primary Care Unavailable Tate, Librado Referring Unavailable Friend, Erick Attending Unavailable Tate, Librado Primary Care Unavailable Tate, Librado Referring Unavailable AtaHali mendoza Attending Unavailable Tate, Librado Primary Care Unavailable Mony Cisneros Attending Unavailable Tate, Librado Primary Care Unavailable MarcanthonyMony Attending Unavailable MarcanthonyMony Referring Unavailable Tate, Librado Primary Care Unavailable Tc Cottrell Attending Unavailable Ivelisse Vazquez Consulting Unavailable Tate, Librado Primary Care Unavailable Mony Cisneros Admitting Unavailable NallelyonyMony Attending Unavailable FlashanthonyMony Attending Unavailable Tate, Librado Primary Care Unavailable Tate, Librado Primary Care Unavailable AtaHali mendoza Referring Unavailable AtaHali mendoza Attending Unavailable Tate, Librado Referring Unavailable MarcanthonyMony Attending Unavailable Tate, Librado Referring Unavailable Tate, Librado Primary Care Unavailable MarcanthonyMony Attending Unavailable Tate, Librado Referring Unavailable Tate, Librado Primary Care Unavailable NallelyonyMony Attending Unavailable Tate, Librado Referring Unavailable MarcanthonyMony Attending Unavailable Tate, Librado Primary Care Unavailable Tate, Librado Primary Care Unavailable Tate, Librado Referring Unavailable Nik Clark Attending Unavailable Tate, Librado Primary Care Unavailable Tate, Librado Referring Unavailable Hali Ruiz Attending Unavailable Tate, Librado Primary Care Unavailable Raphael Kidd Attending Unavailable Tate, Librado Referring Unavailable Tate, Librado Primary Care Unavailable Mony Cisneros Attending Unavailable Tate, Librado Referring Unavailable Mony Cisneros Attending Unavailable Tate, Librado Primary Care Unavailable Jen Damico Attending Unavailable Tate, Librado Primary Care Unavailable Tate, Librado Primary Care Unavailable Raphael Kidd Attending Unavailable Tate, Librado Primary Care Unavailable Mony Cisneros Consulting Unavailable Mony Cisneros Attending Unavailable Mony Cisneros Referring Unavailable Tate, Librado Referring Unavailable Tate, Librado Primary Care Unavailable Mony Cisneros Attending Unavailable Allergies Allergy Classification Reported Allergen(s) Allergy Type Date of Onset Reaction(s) Facility (10 sources) Citalopram; Translations: [citalopram hydrobromide] Drug Allergy 2 [facility] Repository (9 sources) liraglutide Drug Allergy 2 Nausea/Vom/Diar reyna [facility] Work Phone: (9 sources) Morphine Drug Allergy 2 Itching [facility] Work Phone: (10 sources) Penicillins; Translations: [Penicillins] Allergy to substance 2 [facility] Rep[facility] (9 sources) Tetanus immune globulin Drug Allergy 2 [facility] Work Phone: (1 source) liraglutide Drug Allergy 5 [facility] Repository (1 source) Morphine Drug Allergy 5 [facility] Rep[facility] (1 source) Tetanus immune globulin Drug Allergy 5 [facility] Medications Current Medications Medication Drug Class(es) [...] 18, 2018 12:30pm 21 day ethinyl estradiol 0.476670 mg/hr / etonogestrel 0.005 mg/hr vaginal system [...] in pelvis; Translations: [Pelvic and perineal pain] Onset: 02-03-2025 Episodic Acute bronchitis (6 sources) Acute bronchitis; [...] (9 sources) Tachycardia; Translations: [Tachycardia, unspecified] Episodic Complications of surgical procedures or medical care (2 sources) Infection following a procedure, other surgical site, initial encounter; Translations: [Infection following a procedure, other surgical site, initial encounter] Onset: 02-03-2025 Episodic Conditions associated with dizziness or vertigo (9 sources) Dizziness; Translations: [Dizziness and giddiness] Episodic Diabetes mellitus without complication (9 sources) Diabetes mellitus; Translations: [Type 2 diabetes mellitus without complications] Chronic Esophageal disorders (10 sources) Gastroesophageal reflux disease; Translations: [Gastro-esophageal reflux disease without esophagitis] Onset: 10-11-2024 Chronic Fever of unknown origin (2 sources) Fever, unspecified; Translations: [Fever, unspecified] Onset: 01-27-2025 Episodic Headache; including migraine (9 sources) Headache; Translations: [Headache] Episodic Hypertension complicating ; childbirth and the puerperium (9 sources) Pre-eclampsia; Translations: [Unspecified pre-eclampsia, unspecified trimester] Episodic Immunizations and screening for infectious disease (7 sources) Patient encounter status; Translations: [Encounter for screening laboratory testing for COVID-19 virus] Episodic Inflammatory diseases of female pelvic organs (2 sources) Female pelvic inflammatory disease, unspecified; Translations: [Female pelvic inflammatory disease, unspecified] Onset: 02-03-2025 Episodic Malaise and fatigue (9 sources) Fatigue; Translations: [Chronic fatigue, unspecified] Chronic Malaise and fatigue (9 sources) Fatigue; Translations: [Other fatigue] Episodic Menstrual disorders (12 sources) Menometrorrhagia; Translations: [Excessive and frequent menstruation with irregular cycle] Onset: 03-04-2024 Chronic Mood disorders (11 sources) Depressive disorder; Translations: [Depression] Onset: 12-07-2024 Chronic Other and ill-defined heart disease (2 sources) Other ill-defined heart diseases; Translations: [Other ill-defined heart diseases] Onset: 02-03-2025 Chronic Other bone disease and musculoskeletal deformities [...] [Abnormal uterine and vaginal bleeding, unspecified] Onset: 01-31-2025 Chronic Other female genital disorders (9 sources) Polyp of corpus uteri; Translations: [Polyp of corpus uteri] Episodic Other injuries and conditions due to external causes (1 source) Other injury of unspecified body region, initial encounter; Translations: [Other injury of unspecified body region, initial encounter] Onset: 02-02-2025 Episodic Other lower respiratory disease (9 sources) Dyspnea; Translations: [Dyspnea, unspecified] Episodic Other nervous system disorders (9 sources) Pain in limb - multiple; Translations: [Paresthesia of skin] Episodic Other nervous system disorders (2 sources) Other acute postprocedural pain; Translations: [Other acute postprocedural pain] Onset: 02-03-2025 Episodic Other non-traumatic joint disorders (1 source) [...] mammogram for malignant neoplasm of breast] Onset: 02-03-2025 Episodic Other upper respiratory infections (9 sources) [...] absence of both cervix and uterus] Onset: 02-03-2025 Episodic Residual codes; unclassified (1 source) Acquired absence of other genital organ(s); Translations: [Acquired absence of other genital organ(s)] Onset: 01-28-2025 Episodic Spondylosis; intervertebral disc disorders; other back [...] Test Name Value Interpretation Reference Range Facility Culture, Anaerobic Any Sourc mihir 02-03-2025 [facility] Comment on above: Performed By: #### M 100.4001, M100.3000, M100.2000 ####[facility] [address] [place], [address] [facility] Comment on above: Performed By: #### M 100.3000, .1999, 400 ####[facility] [address] [place], [address] [facility] Comment on above: Performed By: #### M 100.1999, M1.400, ####[facility] [address] [place], [address] [facility] Office Visit Reporton 02-03-2025 [facility] Office Visit Report Normal [facility] Wound Cultureon 02-03-2025 [facility] Comment on above: Performed By: #### M 100.1999, .4000, ####[facility] [address] [place], [address] [facility] Comment on above: Performed By: #### M 100.400, M1.2999, ####[facility] [address] [place], [address] [facility] Comment on above: Performed By: #### M 100.3000, .1999, ####[facility] [address] [place], [address] Basic Metabolic Profile (BMP )on 02-02-2025 BUN/CRE 10.5 RATIO Normal 10-20 [facility] Comment on above: Performed By: #### L 500.2500, L100.0100 ####[facility] [address] [place], [address] Calcium [Mass/Vol] 8.7 mg/dL Normal 7.6-11.0 [facility] Comment on above: Performed By: #### L 500.2500, L100.0100 ####[facility] [address] [place], [address] Chloride [Moles/Vol] 104 mmol/L Normal 98-108 [facility] Comment on above: Performed By: #### L 500.2500, L100.0100 ####[facility] [address] [place], [address] CO2 [Moles/Vol] 25.1 mmol/L Normal 21.0-32.0 [facility] Comment on above: Performed By: #### L 500.2500, L100.0100 ####[facility] [address] [place], [address] Creatinine [Mass/Vol] 0.46 mg/dL Low 0.70-1.20 [facility] Comment on above: Performed By: #### L 500.2500, L100.0100 ####[facility] [address] [place], [address] ECRCL 178.35 ml/min Normal 50-250 [facility] Comment on above: Performed By: #### L 500.2500, L100.0100 ####[facility] [address] [place], [address] GAP 11 Normal 5-15 [facility] Comment on above: Performed By: #### L 500.2500, L100.0100 ####[facility] [address] [place], [address] GFR/1.73 sq M.predicted among non-blacks MDRD (S/P/Bld) [Vol rate/Area] 124 mL/min/{1.73_m2} Normal >60 [facility] Comment on above: Result Comment: mL/m in/1.73m2 CKD-EPI Creatinine Equation (2020) Performed By: #### L 500.2500, L100.0100 ####[facility] [address] [place], [address] Glucose [Mass/Vol] 96 mg/dL Normal 70-99 [facility] Comment on above: Performed By: #### L 500.2500, L100.0100 ####[facility] [address] [place], [address] Potassium [Moles/Vol] 2.9 mmol/L Low 3.3-5.1 [facility] Comment on above: Performed By: #### L 500.2500, L100.0100 ####[facility] [address] [place], [address] Sodium [Moles/Vol] 139 mmol/L Normal 133-145 [facility] Comment on above: Performed By: #### L 500.2500, L100.0100 ####[facility] [address] [place], [address] Urea nitrogen [Mass/Vol] 5 mg/dL Normal 4-19 [facility] Comment on above: Performed By: #### L 500.2500, L100.0100 ####[facility] [address] [place], [address] CBC W/Diff, Automatedon 11-0 5-2025 Absolute Lymph 1.39 X10 3/uL Normal 0.83-4.51 [facility] Comment on above: Performed By: #### L 500.2500, L100.0100 ####[facility] [address] [place], [address] Absolute Neut 6.0 X10 3/uL Normal 2.0-7.7 [facility] Comment on above: Performed By: #### L 500.2500, L100.0100 ####[facility] [address] [place], [address] Basophils/100 WBC (Bld) 0.7 % Normal 0-1 [facility] Comment on above: Performed By: #### L 500.2500, L100.0100 ####[facility] [address] [place], [address] Eosinophils/100 WBC (Bld) 4.2 % Normal 0-5 [facility] Comment on above: Performed By: #### L 500.2500, L100.0100 ####[facility] [address] [place], [address] Erythrocyte distribution width (RBC) [Ratio] 13.6 % Normal 11.6-14.6 [facility] Comment on above: Performed By: #### L 500.2500, L100.0100 ####[facility] [address] [place], [address] Hematocrit (Bld) [Volume fraction] 23.8 % Low 37-47 [facility] Comment on above: Performed By: #### L 500.2500, L100.0100 ####[facility] [address] [place], [address] Hemoglobin (Bld) [Mass/Vol] 7.7 g/dL Low 12.0-15.0 [facility] Comment on above: Performed By: #### L 500.2500, L100.0100 ####[facility] [address] [place], [address] IG% 2.100 High 0.0-0.9 [facility] Comment on above: Result Comment: IG% - Immature Granulocytes (promyelocytes, myelocytes andmetamyelocytes) > 1% indicates that a LEFT SHIFT is Present. Performed By: #### L 500.2500, L100.0100 ####[facility] [address] [place], [address] Lymphocytes/100 WBC (Bld) 16.0 % Low 19-41 [facility] Comment on above: Performed By: #### L 500.2500, L100.0100 ####[facility] [address] [place], [address] MCH (RBC) [Entitic mass] 28.4 pg Normal 27.0-32.0 [facility] Comment on above: Performed By: #### L 500.2500, L100.0100 ####[facility] [address] [place], [address] MCHC (RBC) [Mass/Vol] 32.4 g/dL Normal 32-36 [facility] Comment on above: Performed By: #### L 500.2500, L100.0100 ####[facility] [address] [place], [address] MCV (RBC) [Entitic vol] 87.8 fL Normal 81-99 [facility] Comment on above: Performed By: #### L 500.2500, L100.0100 ####[facility] [address] [place], [address] Monocytes/100 WBC (Bld) 7.9 % Normal 0-10 [facility] Comment on above: Performed By: #### L 500.2500, L100.0100 ####[facility] [address] [place], [address] Neutrophils/100 WBC (Bld) 69.1 % Normal 47-70 [facility] Comment on above: Performed By: #### L 500.2500, L100.0100 ####[facility] [address] [place], [address] Nucleated RBC (Bld) [#/Vol] 0.2 10*3/uL Normal 0-5 [facility] Comment on above: Performed By: #### L 500.2500, L100.0100 ####[facility] [address] [place], [address] Platelet mean volume (Bld) [Entitic vol] 9.8 fL Normal 6.2-12.0 [facility] Comment on above: Performed By: #### L 500.2500, L100.0100 ####[facility] [address] [place], [address] Platelets (Bld) [#/Vol] 316 10*3/uL Normal 150-450 [facility] Comment on above: Performed By: #### L 500.2500, L100.0100 ####[facility] [address] [place], [address] RBC (Bld) [#/Vol] 2.71 10*6/uL Low 4.2-5.4 [facility] Comment on above: Performed By: #### L 500.2500, L100.0100 ####[facility] [address] [place], [address] RDW SD 43.9 fl Normal 35.1-43.9 [facility] Comment on above: Performed By: #### L 500.2500, L100.0100 ####[facility] [address] [place], [address] WBC (Bld) [#/Vol] 8.7 10*3/uL Normal 4.4-11.0 [facility] Comment on above: Performed By: #### L 500.2500, L100.0100 ####[facility] [address] [place], [address] Discharge Instructionon 11-0 Discharge Instruction Normal [facility] Basic Metabolic Profile (BMP )on 02-01-2025 BUN/CRE 9.8 RATIO Low 10-20 [facility] Comment on above: Performed By: #### L 100.0500, L500.2500 ####[facility] [address] [place], [address] Calcium [Mass/Vol] 8.7 mg/dL Normal 7.6-11.0 [facility] Comment on above: Performed By: #### L 100.0500, L500.2500 ####[facility] [address] [place], [address] Chloride [Moles/Vol] 104 mmol/L Normal 98-108 [facility] Comment on above: Performed By: #### L 100.0500, L500.2500 ####[facility] [address] [place], [address] CO2 [Moles/Vol] 25.2 mmol/L Normal 21.0-32.0 [facility] Comment on above: Performed By: #### L 100.0500, L500.2500 ####[facility] [address] [place], [address] Creatinine [Mass/Vol] 0.45 mg/dL Low 0.70-1.20 [facility] Comment on above: Performed By: #### L 100.0500, L500.2500 ####[facility] [address] [place], [address] ECRCL 182.31 ml/min Normal 50-250 [facility] Comment on above: Performed By: #### L 100.0500, L500.2500 ####[facility] [address] [place], [address] GAP 11 Normal 5-15 [facility] Comment on above: Performed By: #### L 100.0500, L500.2500 ####[facility] [address] [place], [address] GFR/1.73 sq M.predicted among non-blacks MDRD (S/P/Bld) [Vol rate/Area] 124 mL/min/{1.73_m2} Normal >60 [facility] Comment on above: Result Comment: mL/m in/1.73m2 CKD-EPI Creatinine Equation (2020) Performed By: #### L 100.0500, L500.2500 ####[facility] [address] [place], [address] Glucose [Mass/Vol] 109 mg/dL High 70-99 [facility] Comment on above: Performed By: #### L 100.0500, L500.2500 ####[facility] [address] [place], [address] Potassium [Moles/Vol] 2.9 mmol/L Low 3.3-5.1 [facility] Comment on above: Performed By: #### L 100.0500, L500.2500 ####[facility] [address] [place], [address] Sodium [Moles/Vol] 139 mmol/L Normal 133-145 [facility] Comment on above: Performed By: #### L 100.0500, L500.2500 ####[facility] [address] [place], [address] Urea nitrogen [Mass/Vol] 4 mg/dL Normal 4-19 [facility] Comment on above: Performed By: #### L 100.0500, L500.2500 ####[facility] [address] [place], [address] CBC-Complete Blood Cnt No Di ffon 02-01-2025 Erythrocyte distribution width (RBC) [Ratio] 13.2 % Normal 11.6-14.6 [facility] Comment on above: Performed By: #### L 100.0500, L500.2500 ####[facility] [address] [place], [address] Hematocrit (Bld) [Volume fraction] 24.2 % Low 37-47 [facility] Comment on above: Performed By: #### L 100.0500, L500.2500 ####[facility] [address] [place], [address] Hemoglobin (Bld) [Mass/Vol] 8.2 g/dL Low 12.0-15.0 [facility] Comment on above: Performed By: #### L 100.0500, L500.2500 ####[facility] [address] [place], [address] MCH (RBC) [Entitic mass] 29.4 pg Normal 27.0-32.0 [facility] Comment on above: Performed By: #### L 100.0500, L500.2500 ####[facility] [address] [place], [address] MCHC (RBC) [Mass/Vol] 33.9 g/dL Normal 32-36 [facility] Comment on above: Performed By: #### L 100.0500, L500.2500 ####[facility] [address] [place], [address] MCV (RBC) [Entitic vol] 86.7 fL Normal 81-99 [facility] Comment on above: Performed By: #### L 100.0500, L500.2500 ####[facility] [address] [place], [address] Platelet mean volume (Bld) [Entitic vol] 9.8 fL Normal 6.2-12.0 [facility] Comment on above: Performed By: #### L 100.0500, L500.2500 ####[facility] [address] [place], [address] Platelets (Bld) [#/Vol] 327 10*3/uL Normal 150-450 [facility] Comment on above: Performed By: #### L 100.0500, L500.2500 ####[facility] [address] [place], [address] RBC (Bld) [#/Vol] 2.79 10*6/uL Low 4.2-5.4 [facility] Comment on above: Performed By: #### L 100.0500, L500.2500 ####[facility] [address] [place], [address] RDW SD 41.8 fl Normal 35.1-43.9 [facility] Comment on above: Performed By: #### L 100.0500, L500.2500 ####[facility] [address] [place], [address] WBC (Bld) [#/Vol] 8.6 10*3/uL Normal 4.4-11.0 [facility] Comment on above: Performed By: #### L 100.0500, L500.2500 ####[facility] [address] [place], [address] Basic Metabolic Profile (BMP )on 01-31-2025 BUN/CRE 7.7 RATIO Low 10-20 [facility] Comment on above: Performed By: #### L 500.2500 ####[facility] [address] [place], [address] Calcium [Mass/Vol] 8.5 mg/dL Normal 7.6-11.0 [facility] Comment on above: Performed By: #### L 500.2500 ####[facility] [address] [place], [address] Chloride [Moles/Vol] 103 mmol/L Normal 98-108 [facility] Comment on above: Performed By: #### L 500.2500 ####[facility] [address] [place], [address] CO2 [Moles/Vol] 24.3 mmol/L Normal 21.0-32.0 [facility] Comment on above: Performed By: #### L 500.2500 ####[facility] [address] [place], [address] Creatinine [Mass/Vol] 0.51 mg/dL Low 0.70-1.20 [facility] Comment on above: Performed By: #### L 500.2500 ####[facility] [address] [place], [address] ECRCL 160.87 ml/min Normal 50-250 [facility] Comment on above: Performed By: #### L 500.2500 ####[facility] [address] [place], [address] GAP 11 Normal 5-15 [facility] Comment on above: Performed By: #### L 500.2500 ####[facility] [address] [place], [address] GFR/1.73 sq M.predicted among non-blacks MDRD (S/P/Bld) [Vol rate/Area] 120 mL/min/{1.73_m2} Normal >60 [facility] Comment on above: Result Comment: mL/m in/1.73m2 CKD-EPI Creatinine Equation (2020) Performed By: #### L 500.2500 ####[facility] [address] [place], [address] Glucose [Mass/Vol] 98 mg/dL Normal 70-99 [facility] Comment on above: Performed By: #### L 500.2500 ####[facility] [facility] [address] [place], [address] Potassium [Moles/Vol] 3.0 mmol/L Low 3.3-5.1 [facility] Comment on above: Performed By: #### L 500.2500 ####[facility] [address] [place], [address] Sodium [Moles/Vol] 139 mmol/L Normal 133-145 [facility] Comment on above: Performed By: #### L 500.2500 ####[facility] [address] [place], [address] Urea nitrogen [Mass/Vol] 4 mg/dL Normal 4-19 [facility] Comment on above: Performed By: #### L 500.2500 ####[facility] [address] [place], [address] CBC W/Diff, Automatedon 11-0 3-2025 Absolute Lymph 0.60 X10 3/uL Low 0.83-4.51 [facility] Comment on above: Performed By: #### L 100.0100 ####[facility] [address] [place], [address] Absolute Neut 6.8 X10 3/uL Normal 2.0-7.7 [facility] Comment on above: Performed By: #### L 100.0100 ####[facility] [address] [place], [address] Basophils/100 WBC (Bld) 0.1 % Normal 0-1 [facility] Comment on above: Performed By: #### L 100.0100 ####[facility] [address] [place], [address] Eosinophils/100 WBC (Bld) 6.1 % High 0-5 [facility] Comment on above: Performed By: #### L 100.0100 ####[facility] [address] [place], [address] Erythrocyte distribution width (RBC) [Ratio] 13.3 % Normal 11.6-14.6 [facility] Comment on above: Performed By: #### L 100.0100 ####[facility] [address] [place], [address] Hematocrit (Bld) [Volume fraction] 22.2 % Low 37-47 [facility] Comment on above: Performed By: #### L 100.0100 ####[facility] [address] [place], [address] Hemoglobin (Bld) [Mass/Vol] 7.5 g/dL Low 12.0-15.0 [facility] Comment on above: Performed By: #### L 100.0100 ####[facility] [address] [place], [address] IG% 0.500 Normal 0.0-0.9 [facility] Comment on above: Result Comment: IG% - Immature Granulocytes (promyelocytes, myelocytes andmetamyelocytes) > 1% indicates that a LEFT SHIFT is Present. Performed By: #### L 100.0100 ####[facility] [address] [place], [address] Lymphocytes/100 WBC (Bld) 7.2 % Low 19-41 [facility] Comment on above: Performed By: #### L 100.0100 ####[facility] [address] [place], [address] MCH (RBC) [Entitic mass] 29.5 pg Normal 27.0-32.0 [facility] Comment on above: Performed By: #### L 100.0100 ####[facility] [address] [place], [address] MCHC (RBC) [Mass/Vol] 33.8 g/dL Normal 32-36 [facility] Comment on above: Performed By: #### L 100.0100 ####[facility] [address] [place], [address] MCV (RBC) [Entitic vol] 87.4 fL Normal 81-99 [facility] Comment on above: Performed By: #### L 100.0100 ####[facility] [address] [place], [address] Monocytes/100 WBC (Bld) 4.4 % Normal 0-10 [facility] Comment on above: Performed By: #### L 100.0100 ####[facility] [address] [place], [address] Neutrophils/100 WBC (Bld) 81.7 % High 47-70 [facility] Comment on above: Performed By: #### L 100.0100 ####[facility] [address] [place], [address] Nucleated RBC (Bld) [#/Vol] 0 10*3/uL Normal 0-5 [facility] Comment on above: Performed By: #### L 100.0100 ####[facility] [address] [place], [address] Platelet mean volume (Bld) [Entitic vol] 10.0 fL Normal 6.2-12.0 [facility] Comment on above: Performed By: #### L 100.0100 ####[facility] [address] [place], [address] Platelets (Bld) [#/Vol] 226 10*3/uL Normal 150-450 [facility] Comment on above: Performed By: #### L 100.0100 ####[facility] [address] [place], [address] RBC (Bld) [#/Vol] 2.54 10*6/uL Low 4.2-5.4 [facility] Comment on above: Performed By: #### L 100.0100 ####[facility] [address] [place], [address] RDW SD 42.5 fl Normal 35.1-43.9 [facility] Comment on above: Performed By: #### L 100.0100 ####[facility] [address] [place], [address] WBC (Bld) [#/Vol] 8.4 10*3/uL Normal 4.4-11.0 [facility] Comment on above: Performed By: #### L 100.0100 ####[facility] [address] [place], [address] Chest PA and Lateralon 01-31 Chest PA and Lateral Normal [facility] Consultation - Hospital[place] 01-31-2025 Consultation - Hospitalist Normal [facility] Culture, Blood (WB)on 2024 [facility] CALLED ER @1926 ASKI ASHLI FOR SECOND SET TO BE DONE BEFORE SENDING PT TO FLOOR. STAFF SAID THEY WILL ASK Blood cultures x2, from two different sites No growth in 5 days. Normal [facility] Comment on above: Performed By: #### L 503.6005, M200.1000 ####[facility] [address] [place], [address] Echo Completeon 01-31-2025 Echo Complete Normal [facility] Pro- Brain NATRIURETIC PEPTI Marisol 01-31-2025 Natriuretic peptide B (Bld) [Mass/Vol] 804 pg/mL High <=450 [facility] Comment on above: Result Comment: Hear t Failure Unlikely: < 300 pg/mLHeart Failure Likely< 50 Years: > 450 pg/mL50-75 Years: > 900 pg/mL>75 Years: > 1800 pg/mL Performed By: #### L 501.9520, L503.6615 ####[facility] [address] [place], [address] Thyroid Stim Hormone (TSH)on 01-31-2025 TSH 2.620 uIU/mL Normal 0.300-4.200 [facility] Comment on above: Performed By: #### L 501.9520, L503.7505 ####[facility] [address] [place], [address] Basic Metabolic Profile (BMP )on 01-30-2025 BUN/CRE 6.9 RATIO Low 10-20 [facility] Comment on above: Performed By: #### L 500.2500 ####[facility] [address] [place], [address] Calcium [Mass/Vol] 8.2 mg/dL Normal 7.6-11.0 [facility] Comment on above: Performed By: #### L 500.2500 ####[facility] [address] [place], [address] Chloride [Moles/Vol] 107 mmol/L Normal 98-108 [facility] Comment on above: Performed By: #### L 500.2500 ####[facility] [address] [place], [address] CO2 [Moles/Vol] 25.7 mmol/L Normal 21.0-32.0 [facility] Comment on above: Performed By: #### L 500.2500 ####[facility] [address] [place], [address] Creatinine [Mass/Vol] 0.52 mg/dL Low 0.70-1.20 [facility] Comment on above: Performed By: #### L 500.2500 ####[facility] [address] [place], [address] ECRCL 157.77 ml/min Normal 50-250 [facility] Comment on above: Performed By: #### L 500.2500 ####[facility] [address] [place], [address] GAP 6 Normal 5-15 [facility] Comment on above: Performed By: #### L 500.2500 ####[facility] [address] [place], [address] GFR/1.73 sq M.predicted among non-blacks MDRD (S/P/Bld) [Vol rate/Area] 120 mL/min/{1.73_m2} Normal >60 [facility] Comment on above: Result Comment: mL/m in/1.73m2 CKD-EPI Creatinine Equation (2020) Performed By: #### L 500.2500 ####[facility] [address] [place], [address] Glucose [Mass/Vol] 112 mg/dL High 70-99 [facility] Comment on above: Performed By: #### L 500.2500 ####[facility] [address] [place], [address] Potassium [Moles/Vol] 4.0 mmol/L Normal 3.3-5.1 [facility] Comment on above: Performed By: #### L 500.2500 ####[facility] [address] [place], [address] Sodium [Moles/Vol] 139 mmol/L Normal 133-145 [facility] Comment on above: Performed By: #### L 500.2500 ####[facility] [address] [place], [address] Urea nitrogen [Mass/Vol] 4 mg/dL Normal 4-19 [facility] Comment on above: Performed By: #### L 500.2500 ####[facility] [address] [place], [address] CBC W/Diff, Automatedon 11-0 2-2025 Absolute Lymph 0.54 X10 3/uL Low 0.83-4.51 [facility] Comment on above: Performed By: #### L 100.0100 ####[facility] [address] [place], [address] Absolute Neut 7.1 X10 3/uL Normal 2.0-7.7 [facility] Comment on above: Performed By: #### L 100.0100 ####[facility] [address] [place], [address] Basophils/100 WBC (Bld) 0.4 % Normal 0-1 [facility] Comment on above: Performed By: #### L 100.0100 ####[facility] [address] [place], [address] Eosinophils/100 WBC (Bld) 5.4 % High 0-5 [facility] Comment on above: Performed By: #### L 100.0100 ####[facility] [address] [place], [address] Erythrocyte distribution width (RBC) [Ratio] 13.3 % Normal 11.6-14.6 [facility] Comment on above: Performed By: #### L 100.0100 ####[facility] [address] [place], [address] Hematocrit (Bld) [Volume fraction] 21.5 % Low 37-47 [facility] Comment on above: Performed By: #### L 100.0100 ####[facility] [address] [place], [address] Hemoglobin (Bld) [Mass/Vol] 7.3 g/dL Low 12.0-15.0 [facility] Comment on above: Performed By: #### L 100.0100 ####[facility] [address] [place], [address] IG% 0.600 Normal 0.0-0.9 [facility] Comment on above: Result Comment: IG% - Immature Granulocytes (promyelocytes, myelocytes andmetamyelocytes) > 1% indicates that a LEFT SHIFT is Present. Performed By: #### L 100.0100 ####[facility] [address] [place], [address] Lymphocytes/100 WBC (Bld) 6.4 % Low 19-41 [facility] Comment on above: Performed By: #### L 100.0100 ####[facility] [address] [place], [address] MCH (RBC) [Entitic mass] 30.0 pg Normal 27.0-32.0 [facility] Comment on above: Performed By: #### L 100.0100 ####[facility] [address] [place], [address] MCHC (RBC) [Mass/Vol] 34.0 g/dL Normal 32-36 [facility] Comment on above: Performed By: #### L 100.0100 ####[facility] [address] [place], [address] MCV (RBC) [Entitic vol] 88.5 fL Normal 81-99 [facility] Comment on above: Performed By: #### L 100.0100 ####[facility] [address] [place], [address] Monocytes/100 WBC (Bld) 2.7 % Normal 0-10 [facility] Comment on above: Performed By: #### L 100.0100 ####[facility] [address] [place], [address] Neutrophils/100 WBC (Bld) 84.5 % High 47-70 [facility] Comment on above: Performed By: #### L 100.0100 ####[facility] [address] [place], [address] Nucleated RBC (Bld) [#/Vol] 0 10*3/uL Normal 0-5 [facility] Comment on above: Performed By: #### L 100.0100 ####[facility] [address] [place], [address] Platelet mean volume (Bld) [Entitic vol] 9.8 fL Normal 6.2-12.0 [facility] Comment on above: Performed By: #### L 100.0100 ####[facility] [address] [place], [address] Platelets (Bld) [#/Vol] 207 10*3/uL Normal 150-450 [facility] Comment on above: Performed By: #### L 100.0100 ####[facility] [address] [place], [address] RBC (Bld) [#/Vol] 2.43 10*6/uL Low 4.2-5.4 [facility] Comment on above: Performed By: #### L 100.0100 ####[facility] [address] [place], [address] RDW SD 43.1 fl Normal 35.1-43.9 [facility] Comment on above: Performed By: #### L 100.0100 ####[facility] [address] [place], [address] WBC (Bld) [#/Vol] 8.4 10*3/uL Normal 4.4-11.0 [facility] Comment on above: Performed By: #### L 100.0100 ####[facility] [address] [place], [address] CBC-Complete Blood Cnt No Di ffon 01-30-2025 Erythrocyte distribution width (RBC) [Ratio] 13.6 % Normal 11.6-14.6 [facility] Comment on above: Performed By: #### L 100.0500 ####[facility] [address] [place], [address] Hematocrit (Bld) [Volume fraction] 22.0 % Low 37-47 [facility] Comment on above: Performed By: #### L 100.0500 ####[facility] [address] [place], [address] Hemoglobin (Bld) [Mass/Vol] 7.4 g/dL Low 12.0-15.0 [facility] Comment on above: Performed By: #### L 100.0500 ####[facility] [address] [place], [address] MCH (RBC) [Entitic mass] 29.8 pg Normal 27.0-32.0 [facility] Comment on above: Performed By: #### L 100.0500 ####[facility] [address] [place], [address] MCHC (RBC) [Mass/Vol] 33.6 g/dL Normal 32-36 [facility] Comment on above: Performed By: #### L 100.0500 ####[facility] [address] [place], [address] MCV (RBC) [Entitic vol] 88.7 fL Normal 81-99 [facility] Comment on above: Performed By: #### L 100.0500 ####[facility] [address] [place], [address] Platelet mean volume (Bld) [Entitic vol] 10.0 fL Normal 6.2-12.0 [facility] Comment on above: Performed By: #### L 100.0500 ####[facility] [address] [place], [address] Platelets (Bld) [#/Vol] 200 10*3/uL Normal 150-450 [facility] Comment on above: Performed By: #### L 100.0500 ####[facility] [address] [place], [address] RBC (Bld) [#/Vol] 2.48 10*6/uL Low 4.2-5.4 [facility] Comment on above: Performed By: #### L 100.0500 ####[facility] [address] [place], [address] RDW SD 44.2 fl High 35.1-43.9 [facility] Comment on above: Performed By: #### L 100.0500 ####[facility] [address] [place], [address] WBC (Bld) [#/Vol] 8.8 10*3/uL Normal 4.4-11.0 [facility] Comment on above: Performed By: #### L 100.0500 ####[facility] [address] [place], [address] Chest PA and Lateralon 01-30 Chest PA and Lateral Normal [facility] Gram Stainon 01-30-2025 GS UNK UNK COLLECTED IN OR-PELVIC ABSCESS TISSUE Gram Stain 2+ Gram negative rods 4+ Gram positive rods 1+ Gram positive cocci No Epithelial cells Normal [facility] Comment on above: Performed By: #### M 100.2000, M100.4001, M100.3000 ####[facility] [address] [place], [address] GS PELVIC ABSCESS DRAIN AGE #1 UNK UNK COLLECTED IN OR-PELVIC ABSCESS DRAINAGE X2 Gram Stain 2+ Gram positive cocci 2+ Gram positive rods 1+ Gram negative cocco bacillus No Epithelial cells Normal [facility] Comment on above: Performed By: #### M 100.3000, M100.2000, M100.4001 ####[facility] [address] [place], [address] GS PELVIC ABSCESS DRAIN AGE #2 UNK UNK Gram Stain 4+ Gram positive rods 2+ Gram positive cocci 4+ Gram negative rods Normal [facility] Comment on above: Performed By: #### M 100.4001, M100.3000, M1.2000 ####[facility] [address] [place], [address] 12 Lead EKGon 01-29-2025 12 Lead EKG Normal [facility] CBC W/Diff, Automatedon Absolute Lymph 1.20 X10 3/uL Normal 0.83-4.51 [facility] Comment on above: Performed By: #### L 500.4050, L100.0100 ####[facility] [address] [place], [address] Absolute Neut 8.9 X10 3/uL High 2.0-7.7 [facility] Comment on above: Performed By: #### L 500.4050, L100.0100 ####[facility] [address] [place], [address] Basophils/100 WBC (Bld) 0.4 % Normal 0-1 [facility] Comment on above: Performed By: #### L 500.4050, L100.0100 ####[facility] [address] [place], [address] Eosinophils/100 WBC (Bld) 2.7 % Normal 0-5 [facility] Comment on above: Performed By: #### L 500.4050, L100.0100 ####[facility] [address] [place], [address] Erythrocyte distribution width (RBC) [Ratio] 13.0 % Normal 11.6-14.6 [facility] Comment on above: Performed By: #### L 500.4050, L100.0100 ####[facility] [address] [place], [address] Hematocrit (Bld) [Volume fraction] 24.5 % Low 37-47 [facility] Comment on above: Performed By: #### L 500.4050, L100.0100 ####[facility] [address] [place], [address] Hemoglobin (Bld) [Mass/Vol] 8.3 g/dL Low 12.0-15.0 [facility] Comment on above: Performed By: #### L 500.4050, L100.0100 ####[facility] [address] [place], [address] IG% 0.700 Normal 0.0-0.9 [facility] Comment on above: Result Comment: IG% - Immature Granulocytes (promyelocytes, myelocytes andmetamyelocytes) > 1% indicates that a LEFT SHIFT is Present. Performed By: #### L 500.4050, L100.0100 ####[facility] [address] [place], [address] Lymphocytes/100 WBC (Bld) 10.6 % Low 19-41 [facility] Comment on above: Performed By: #### L 500.4050, L100.0100 ####[facility] [address] [place], [address] MCH (RBC) [Entitic mass] 29.5 pg Normal 27.0-32.0 [facility] Comment on above: Performed By: #### L 500.4050, L100.0100 ####[facility] [address] [place], [address] MCHC (RBC) [Mass/Vol] 33.9 g/dL Normal 32-36 [facility] Comment on above: Performed By: #### L 500.4050, L100.0100 ####[facility] [address] [place], [address] MCV (RBC) [Entitic vol] 87.2 fL Normal 81-99 [facility] Comment on above: Performed By: #### L 500.4050, L100.0100 ####[facility] [address] [place], [address] Monocytes/100 WBC (Bld) 6.8 % Normal 0-10 [facility] Comment on above: Performed By: #### L 500.4050, L100.0100 ####[facility] [address] [place], [address] Neutrophils/100 WBC (Bld) 78.8 % High 47-70 [facility] Comment on above: Performed By: #### L 500.4050, L100.0100 ####[facility] [address] [place], [address] Nucleated RBC (Bld) [#/Vol] 0 10*3/uL Normal 0-5 [facility] Comment on above: Performed By: #### L 500.4050, L100.0100 ####[facility] [address] [place], [address] Platelet mean volume (Bld) [Entitic vol] 10.0 fL Normal 6.2-12.0 [facility] Comment on above: Performed By: #### L 500.4050, L100.0100 ####[facility] [address] [place], [address] Platelets (Bld) [#/Vol] 255 10*3/uL Normal 150-450 [facility] Comment on above: Performed By: #### L 500.4050, L100.0100 ####[facility] [address] [place], [address] RBC (Bld) [#/Vol] 2.81 10*6/uL Low 4.2-5.4 [facility] Comment on above: Performed By: #### L 500.4050, L100.0100 ####[facility] [address] [place], [address] RDW SD 40.9 fl Normal 35.1-43.9 [facility] Comment on above: Performed By: #### L 500.4050, L100.0100 ####[facility] [address] [place], [address] WBC (Bld) [#/Vol] 11.3 10*3/uL High 4.4-11.0 [facility] Comment on above: Performed By: #### L 500.4050, L100.0100 ####[facility] [address] [place], [address] CBC-Complete Blood Cnt No Di ffon 01-29-2025 Erythrocyte distribution width (RBC) [Ratio] 13.4 % Normal 11.6-14.6 [facility] Comment on above: Performed By: #### L 100.0500 ####[facility] [address] [place], [address] Hematocrit (Bld) [Volume fraction] 29.7 % Low 37-47 [facility] Comment on above: Performed By: #### L 100.0500 ####[facility] [address] [place], [address] Hemoglobin (Bld) [Mass/Vol] 10.2 g/dL Low 12.0-15.0 [facility] Comment on above: Performed By: #### L 100.0500 ####[facility] [address] [place], [address] MCH (RBC) [Entitic mass] 30.1 pg Normal 27.0-32.0 [facility] Comment on above: Performed By: #### L 100.0500 ####[facility] [address] [place], [address] MCHC (RBC) [Mass/Vol] 34.3 g/dL Normal 32-36 [facility] Comment on above: Performed By: #### L 100.0500 ####[facility] [address] [place], [address] MCV (RBC) [Entitic vol] 87.6 fL Normal 81-99 [facility] Comment on above: Performed By: #### L 100.0500 ####[facility] [address] [place], [address] Platelet mean volume (Bld) [Entitic vol] 9.9 fL Normal 6.2-12.0 [facility] Comment on above: Performed By: #### L 100.0500 ####[facility] [address] [place], [address] Platelets (Bld) [#/Vol] 342 10*3/uL Normal 150-450 [facility] Comment on above: Performed By: #### L 100.0500 ####[facility] [address] [place], [address] RBC (Bld) [#/Vol] 3.39 10*6/uL Low 4.2-5.4 [facility] Comment on above: Performed By: #### L 100.0500 ####[facility] [address] [place], [address] RDW SD 42.5 fl Normal 35.1-43.9 [facility] Comment on above: Performed By: #### L 100.0500 ####[facility] [address] [place], [address] WBC (Bld) [#/Vol] 12.2 10*3/uL High 4.4-11.0 [facility] Comment on above: Performed By: #### L 100.0500 ####[facility] [address] [place], [address] Comprehensive Metabolic Prof ilon 01-29-2025 Albumin [Mass/Vol] 3.4 g/dL Low 3.5-5.0 [facility] Comment on above: Performed By: #### L 500.4050, L100.0100 ####[facility] [address] [place], [address] Albumin/Globulin [Mass ratio] 1.3 {ratio} Normal 0.9-2.4 [facility] Comment on above: Performed By: #### L 500.4050, L100.0100 ####[facility] [address] [place], [address] ALK PHOS 68 U/L Normal 35-104 [facility] Comment on above: Performed By: #### L 500.4050, L100.0100 ####[facility] [address] [place], [address] ALT [Catalytic activity/Vol] 26 U/L Normal <=34 [facility] Comment on above: Performed By: #### L 500.4050, L100.0100 ####[facility] [address] [place], [address] AST [Catalytic activity/Vol] 20 U/L Normal <=31 [facility] Comment on above: Performed By: #### L 500.4050, L100.0100 ####[facility] [address] [place], [address] Bilirubin [Mass/Vol] 0.83 mg/dL Normal 0.00-1.30 [facility] Comment on above: Performed By: #### L 500.4050, L100.0100 ####[facility] [address] [place], [address] BUN/CRE 11.8 RATIO Normal 10-20 [facility] Comment on above: Performed By: #### L 500.4050, L100.0100 ####[facility] [address] [place], [address] Calcium [Mass/Vol] 8.3 mg/dL Normal 7.6-11.0 [facility] Comment on above: Performed By: #### L 500.4050, L100.0100 ####[facility] [address] [place], [address] Chloride [Moles/Vol] 103 mmol/L Normal 98-108 [facility] Comment on above: Performed By: #### L 500.4050, L100.0100 ####[facility] [address] [place], [address] CO2 [Moles/Vol] 22.2 mmol/L Normal 21.0-32.0 [facility] Comment on above: Performed By: #### L 500.4050, L100.0100 ####[facility] [address] [place], [address] Creatinine [Mass/Vol] 0.54 mg/dL Low 0.70-1.20 [facility] Comment on above: Performed By: #### L 500.4050, L100.0100 ####[facility] [address] [place], [address] ECRCL 151.94 ml/min Normal 50-250 [facility] Comment on above: Performed By: #### L 500.4050, L100.0100 ####[facility] [address] [place], [address] GAP 9 Normal 5-15 [facility] Comment on above: Performed By: #### L 500.4050, L100.0100 ####[facility] [address] [place], [address] GFR/1.73 sq M.predicted among non-blacks MDRD (S/P/Bld) [Vol rate/Area] 118 mL/min/{1.73_m2} Normal >60 [facility] Comment on above: Result Comment: mL/m in/1.73m2 CKD-EPI Creatinine Equation (2020) Performed By: #### L 500.4050, L100.0100 ####[facility] [address] [place], [address] Globulin (S) [Mass/Vol] 2.7 g/dL Normal 2.2-4.2 [facility] Comment on above: Performed By: #### L 500.4050, L100.0100 ####[facility] [address] [place], [address] Glucose [Mass/Vol] 104 mg/dL High 70-99 [facility] Comment on above: Performed By: #### L 500.4050, L100.0100 ####[facility] [address] [place], [address] Potassium [Moles/Vol] 3.5 mmol/L Normal 3.3-5.1 [facility] Comment on above: Performed By: #### L 500.4050, L100.0100 ####[facility] [address] [place], [address] Sodium [Moles/Vol] 134 mmol/L Normal 133-145 [facility] Comment on above: Performed By: #### L 500.4050, L100.0100 ####[facility] [address] [place], [address] T PROT 6.1 g/dL Normal 5.9-8.4 [facility] Comment on above: Performed By: #### L 500.4050, L100.0100 ####[facility] [address] [place], [address] Urea nitrogen [Mass/Vol] 6 mg/dL Normal 4-19 [facility] Comment on above: Performed By: #### L 500.4050, L100.0100 ####[facility] [address] [place], [address] MR/POSTOP.ANEon 01-29-2025 MR/POSTOP.ANE Normal [facility] MR/IQKHIWFN9ct 01-29-2025 MR/POSTOPAN2 Normal [facility] Operative Reporton Operative Report Normal [facility] Urine Cultureon 01-29-2025 [facility] Culture exhibits no growth. Normal [facility] Comment on above: Performed By: #### M 100.2200 ####[facility] [address] [place], [address] Abdomen/Pelvis W IV Cont ONL Yon 01-28-2025 Abdomen/Pelvis W IV Cont ONLY Normal [facility] Basic Metabolic Profile (BMP )on 01-28-2025 BUN/CRE 11.3 RATIO Normal - [facility] Comment on above: Performed By: #### L 500.2500, L100.0100 ####[facility] [address] [place], [address] Calcium [Mass/Vol] 9.2 mg/dL Normal 7.6-11.0 [facility] Comment on above: Performed By: #### L 500.2500, L100.0100 ####[facility] [address] [place], [address] Chloride [Moles/Vol] 100 mmol/L Normal 98-108 [facility] Comment on above: Performed By: #### L 500.2500, L100.0100 ####[facility] [address] [place], [address] CO2 [Moles/Vol] 26.9 mmol/L Normal 21.0-32.0 [facility] Comment on above: Performed By: #### L 500.2500, L100.0100 ####[facility] [address] [place], [address] Creatinine [Mass/Vol] 0.60 mg/dL Low 0.70-1.20 [facility] Comment on above: Performed By: #### L 500.2500, L100.0100 ####[facility] [address] [place], [address] ECRCL 117.03 ml/min Normal 50-250 [facility] Comment on above: Performed By: #### L 500.2500, L100.0100 ####[facility] [address] [place], [address] GAP 10 Normal 5-15 [facility] Comment on above: Performed By: #### L 500.2500, L100.0100 ####[facility] [address] [place], [address] GFR/1.73 sq M.predicted among non-blacks MDRD (S/P/Bld) [Vol rate/Area] 116 mL/min/{1.73_m2} Normal >60 [facility] Comment on above: Result Comment: mL/m in/1.73m2 CKD-EPI Creatinine Equation (2021) Performed By: #### L 500.2500, L100.0100 ####[facility] [address] [place], [address] Glucose [Mass/Vol] 111 mg/dL High 70-99 [facility] Comment on above: Performed By: #### L 500.2500, L100.0100 ####[facility] [address] [place], [address] Potassium [Moles/Vol] 3.5 mmol/L Normal 3.3-5.1 [facility] Comment on above: Performed By: #### L 500.2500, L100.0100 ####[facility] [address] [place], [address] Sodium [Moles/Vol] 137 mmol/L Normal 133-145 [facility] Comment on above: Performed By: #### L 500.2500, L100.0100 ####[facility] [address] [place], [address] Urea nitrogen [Mass/Vol] 7 mg/dL Normal 4-19 [facility] Comment on above: Performed By: #### L 500.2500, L100.0100 ####[facility] [address] [place], [address] CBC W/Diff, Automatedon 10-3 Absolute Lymph 1.28 X10 3/uL Normal 0.83-4.51 [facility] Comment on above: Performed By: #### L 500.2500, L100.0100 ####[facility] [address] [place], [address] Absolute Neut 7.3 X10 3/uL Normal 2.0-7.7 [facility] Comment on above: Performed By: #### L 500.2500, L100.0100 ####[facility] [address] [place], [address] Basophils/100 WBC (Bld) 0.4 % Normal 0-1 [facility] Comment on above: Performed By: #### L 500.2500, L100.0100 ####[facility] [address] [place], [address] Eosinophils/100 WBC (Bld) 3.6 % Normal 0-5 [facility] Comment on above: Performed By: #### L 500.2500, L100.0100 ####[facility] [address] [place], [address] Erythrocyte distribution width (RBC) [Ratio] 13.0 % Normal 11.6-14.6 [facility] Comment on above: Performed By: #### L 500.2500, L100.0100 ####[facility] [address] [place], [address] Hematocrit (Bld) [Volume fraction] 30.1 % Low 37-47 [facility] Comment on above: Performed By: #### L 500.2500, L100.0100 ####[facility] [address] [place], [address] Hemoglobin (Bld) [Mass/Vol] 10.4 g/dL Low 12.0-15.0 [facility] Comment on above: Performed By: #### L 500.2500, L100.0100 ####[facility] [address] [place], [address] IG% 0.600 Normal 0.0-0.9 [facility] Comment on above: Result Comment: IG% - Immature Granulocytes (promyelocytes, myelocytes andmetamyelocytes) > 1% indicates that a LEFT SHIFT is Present. Performed By: #### L 500.2500, L100.0100 ####[facility] [address] [place], [address] Lymphocytes/100 WBC (Bld) 13.2 % Low 19-41 [facility] Comment on above: Performed By: #### L 500.2500, L100.0100 ####[facility] [address] [place], [address] MCH (RBC) [Entitic mass] 30.0 pg Normal 27.0-32.0 [facility] Comment on above: Performed By: #### L 500.2500, L100.0100 ####[facility] [address] [place], [address] MCHC (RBC) [Mass/Vol] 34.6 g/dL Normal 32-36 [facility] Comment on above: Performed By: #### L 500.2500, L100.0100 ####[facility] [address] [place], [address] MCV (RBC) [Entitic vol] 86.7 fL Normal 81-99 [facility] Comment on above: Performed By: #### L 500.2500, L100.0100 ####[facility] [address] [place], [address] Monocytes/100 WBC (Bld) 6.8 % Normal 0-10 [facility] Comment on above: Performed By: #### L 500.2500, L100.0100 ####[facility] [address] [place], [address] Neutrophils/100 WBC (Bld) 75.4 % High 47-70 [facility] Comment on above: Performed By: #### L 500.2500, L100.0100 ####[facility] [address] [place], [address] Nucleated RBC (Bld) [#/Vol] 0 10*3/uL Normal 0-5 [facility] Comment on above: Performed By: #### L 500.2500, L100.0100 ####[facility] [address] [place], [address] Platelet mean volume (Bld) [Entitic vol] 9.9 fL Normal 6.2-12.0 [facility] Comment on above: Performed By: #### L 500.2500, L100.0100 ####[facility] [address] [place], [address] Platelets (Bld) [#/Vol] 312 10*3/uL Normal 150-450 [facility] Comment on above: Performed By: #### L 500.2500, L100.0100 ####[facility] [address] [place], [address] RBC (Bld) [#/Vol] 3.47 10*6/uL Low 4.2-5.4 [facility] Comment on above: Performed By: #### L 500.2500, L100.0100 ####[facility] [address] [place], [address] RDW SD 40.1 fl Normal 35.1-43.9 [facility] Comment on above: Performed By: #### L 500.2500, L100.0100 ####[facility] [address] [place], [address] WBC (Bld) [#/Vol] 9.7 10*3/uL Normal 4.4-11.0 [facility] Comment on above: Performed By: #### L 500.2500, L100.0100 ####[facility] [address] [place], [address] Emergency Department Summary on 01-28-2025 Emergency Department Summary Normal [facility] Genital Culture Comprehensiv mihir 01-28-2025 VAC Reason for Exam: abdominal pain Normal vaginal marylou isolated. No yeast, Gardnerella, Neisseria or beta-hemolytic Streptococcus isolated. 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, [address] Lactic Acidon 01-28-2025 Lactate [Moles/Vol] mmol/L Normal 0.0-2.0 [facility] Comment on above: Order Comment: Y Performed By: #### L 503.6005, M200.1000 ####[facility] [address] [place], [address] Urinalysis, Completeon 01-28 RBC 0-5 SEEN Normal 0-5 [facility] Comment on above: Order Comment: CLEAN CATCH Performed By: #### L 400.0001 ####[facility] [address] [place], [address] WBC 0-5 SEEN Normal 0-5 [facility] Comment on above: Order Comment: CLEAN CATCH Performed By: #### L 400.0001 ####[facility] [address] [place], [address] EPI,SQUAMOUS 0-5 SEEN Normal 5-10 [facility] Comment on above: Order Comment: CLEAN CATCH Performed By: #### L 400.0001 ####[facility] [address] [place], [address] BACTERIA 0 SEEN Normal None Seen [facility] Comment on above: Order Comment: CLEAN CATCH Performed By: #### L 400.0001 ####[facility] [address] [place], [address] Mucus Ql (Urine sed) 0 SEEN Normal [facility] Comment on above: Order Comment: CLEAN CATCH Performed By: #### L 400.0001 ####[facility] [address] [place], [address] CBC W/Diff, Automatedon 12-31 Absolute Lymph 1.99 X10 3/uL Normal 0.83-4.51 [facility] Comment on above: Performed By: #### L 100.0100 ####[facility] [address] [place], [address] Absolute Neut 7.8 X10 3/uL High 2.0-7.7 [facility] Comment on above: Performed By: #### L 100.0100 ####[facility] [address] [place], [address] Basophils/100 WBC (Bld) 0.4 % Normal 0-1 [facility] Comment on above: Performed By: #### L 100.0100 ####[facility] [address] [place], [address] Eosinophils/100 WBC (Bld) 5.6 % High 0-5 [facility] Comment on above: Performed By: #### L 100.0100 ####[facility] [address] [place], [address] Erythrocyte distribution width (RBC) [Ratio] 13.2 % Normal 11.6-14.6 [facility] Comment on above: Performed By: #### L 100.0100 ####[facility] [address] [place], [address] Hematocrit (Bld) [Volume fraction] 30.6 % Low 37-47 [facility] Comment on above: Performed By: #### L 100.0100 ####[facility] [address] [place], [address] Hemoglobin (Bld) [Mass/Vol] 10.6 g/dL Low 12.0-15.0 [facility] Comment on above: Performed By: #### L 100.0100 ####[facility] [address] [place], [address] IG% 0.700 Normal 0.0-0.9 [facility] Comment on above: Result Comment: IG% - Immature Granulocytes (promyelocytes, myelocytes andmetamyelocytes) > 1% indicates that a LEFT SHIFT is Present. Performed By: #### L 100.0100 ####[facility] [address] [place], [address] Lymphocytes/100 WBC (Bld) 17.5 % Low 19-41 [facility] Comment on above: Performed By: #### L 100.0100 ####[facility] [address] [place], [address] MCH (RBC) [Entitic mass] 30.1 pg Normal 27.0-32.0 [facility] Comment on above: Performed By: #### L 100.0100 ####[facility] [address] [place], [address] MCHC (RBC) [Mass/Vol] 34.6 g/dL Normal 32-36 [facility] Comment on above: Performed By: #### L 100.0100 ####[facility] [address] [place], [address] MCV (RBC) [Entitic vol] 86.9 fL Normal 81-99 [facility] Comment on above: Performed By: #### L 100.0100 ####[facility] [address] [place], [address] Monocytes/100 WBC (Bld) 6.7 % Normal 0-10 [facility] Comment on above: Performed By: #### L 100.0100 ####[facility] [address] [place], [address] Neutrophils/100 WBC (Bld) 69.1 % Normal 47-70 [facility] Comment on above: Performed By: #### L 100.0100 ####[facility] [address] [place], [address] Nucleated RBC (Bld) [#/Vol] 0 10*3/uL Normal 0-5 [facility] Comment on above: Performed By: #### L 100.0100 ####[facility] [address] [place], [address] Platelet mean volume (Bld) [Entitic vol] 9.9 fL Normal 6.2-12.0 [facility] Comment on above: Performed By: #### L 100.0100 ####[facility] [address] [place], [address] Platelets (Bld) [#/Vol] 320 10*3/uL Normal 150-450 [facility] Comment on above: Performed By: #### L 100.0100 ####[facility] [address] [place], [address] RBC (Bld) [#/Vol] 3.52 10*6/uL Low 4.2-5.4 [facility] Comment on above: Performed By: #### L 100.0100 ####[facility] [address] [place], [address] RDW SD 40.7 fl Normal 35.1-43.9 [facility] Comment on above: Performed By: #### L 100.0100 ####[facility] [address] [place], [address] WBC (Bld) [#/Vol] 11.3 10*3/uL High 4.4-11.0 [facility] Comment on above: Performed By: #### L 100.0100 ####[facility] [address] [place], [address] Gram Stainon 01-27-2025 Reason for Exam: abdominal pain Gram Stain 2+ Gram variable venancio 3+ Gram positive rods No Gram negative diplococci Score =5 Interpretation: 0-3 Normal, 4-6 Intermediate, 7-10 Positive BV Normal [facility] Comment on above: Performed By: #### M 100.3200, M100.1999 ####[facility] [address] [place], [address] Blue Split Trimmer Office Visit Reporton 01-27-2025 Blue Split Trimmer Office Visit Report Normal [facility] Pelvic w/ Transvaginalon Pelvic w/ Transvaginal Normal [facility] Basic Metabolic Profile (BMP )on 01-25-2025 BUN/CRE 19.8 RATIO Normal - [facility] Comment on above: Performed By: #### L 500.3400, L500.2500, L300.4310, L300.3900, L501.2450 ####[facility] [address] [place], [address] Calcium [Mass/Vol] 9.0 mg/dL Normal 7.6-11.0 [facility] Comment on above: Performed By: #### L 500.3400, L500.2500, L300.4310, L300.3900, L501.2450 ####[facility] [address] [place], [address] Chloride [Moles/Vol] 102 mmol/L Normal 98-108 [facility] Comment on above: Performed By: #### L 500.3400, L500.2500, L300.4310, L300.3900, L501.2450 ####[facility] [address] [place], [address] CO2 [Moles/Vol] 24.6 mmol/L Normal 21.0-32.0 [facility] Comment on above: Performed By: #### L 500.3400, L500.2500, L300.4310, L300.3900, L501.2450 ####[facility] [address] [place], [address] Creatinine [Mass/Vol] 0.63 mg/dL Low 0.70-1.20 [facility] Comment on above: Performed By: #### L 500.3400, L500.2500, L300.4310, L300.3900, L501.2450 ####[facility] [address] [place], [address] ECRCL 131.83 ml/min Normal 50-250 [facility] Comment on above: Performed By: #### L 500.3400, L500.2500, L300.4310, L300.3900, L501.2450 ####[facility] [address] [place], [address] GAP 9 Normal 5-15 [facility] Comment on above: Performed By: #### L 500.3400, L500.2500, L300.4310, L300.3900, L501.2450 ####[facility] [address] [place], [address] GFR/1.73 sq M.predicted among non-blacks MDRD (S/P/Bld) [Vol rate/Area] 114 mL/min/{1.73_m2} Normal >60 [facility] Comment on above: Result Comment: mL/m in/1.73m2 CKD-EPI Creatinine Equation (2020) Performed By: #### L 500.3400, L500.2500, L300.4310, L300.3900, L501.2450 ####[facility] [address] [place], [address] Glucose [Mass/Vol] 112 mg/dL High 70-99 [facility] Comment on above: Performed By: #### L 500.3400, L500.2500, L300.4310, L300.3900, L501.2450 ####[facility] [address] [place], [address] Potassium [Moles/Vol] 3.8 mmol/L Normal 3.3-5.1 [facility] Comment on above: Performed By: #### L 500.3400, L500.2500, L300.4310, L300.3900, L501.2450 ####[facility] [address] [place], [address] Sodium [Moles/Vol] 135 mmol/L Normal 133-145 [facility] Comment on above: Performed By: #### L 500.3400, L500.2500, L300.4310, L300.3900, L501.2450 ####[facility] [address] [place], [address] Urea nitrogen [Mass/Vol] 12 mg/dL Normal 4-19 [facility] Comment on above: Performed By: #### L 500.3400, L500.2500, L300.4310, L300.3900, L501.2450 ####[facility] [address] [place], [address] CBC W/Diff, Automatedon 10-2 -2024 Absolute Lymph 1.75 X10 3/uL Normal 0.83-4.51 [facility] Comment on above: Performed By: #### L 100.0100 ####[facility] [address] [place], [address] Absolute Neut 8.1 X10 3/uL High 2.0-7.7 [facility] Comment on above: Performed By: #### L 100.0100 ####[facility] [address] [place], [address] Basophils/100 WBC (Bld) 0.3 % Normal 0-1 [facility] Comment on above: Performed By: #### L 100.0100 ####[facility] [address] [place], [address] Eosinophils/100 WBC (Bld) 5.7 % High 0-5 [facility] Comment on above: Performed By: #### L 100.0100 ####[facility] [address] [place], [address] Erythrocyte distribution width (RBC) [Ratio] 12.6 % Normal 11.6-14.6 [facility] Comment on above: Performed By: #### L 100.0100 ####[facility] [address] [place], [address] Hematocrit (Bld) [Volume fraction] 26.7 % Low 37-47 [facility] Comment on above: Performed By: #### L 100.0100 ####[facility] [address] [place], [address] Hemoglobin (Bld) [Mass/Vol] 9.2 g/dL Low 12.0-15.0 [facility] Comment on above: Performed By: #### L 100.0100 ####[facility] [address] [place], [address] IG% 0.600 Normal 0.0-0.9 [facility] Comment on above: Result Comment: IG% - Immature Granulocytes (promyelocytes, myelocytes andmetamyelocytes) > 1% indicates that a LEFT SHIFT is Present. Performed By: #### L 100.0100 ####[facility] [address] [place], [address] Lymphocytes/100 WBC (Bld) 15.7 % Low 19-41 [facility] Comment on above: Performed By: #### L 100.0100 ####[facility] [address] [place], [address] MCH (RBC) [Entitic mass] 29.6 pg Normal 27.0-32.0 [facility] Comment on above: Performed By: #### L 100.0100 ####[facility] [address] [place], [address] MCHC (RBC) [Mass/Vol] 34.5 g/dL Normal 32-36 [facility] Comment on above: Performed By: #### L 100.0100 ####[facility] [address] [place], [address] MCV (RBC) [Entitic vol] 85.9 fL Normal 81-99 [facility] Comment on above: Performed By: #### L 100.0100 ####[facility] [address] [place], [address] Monocytes/100 WBC (Bld) 5.1 % Normal 0-10 [facility] Comment on above: Performed By: #### L 100.0100 ####[facility] [address] [place], [address] Neutrophils/100 WBC (Bld) 72.6 % High 47-70 [facility] Comment on above: Performed By: #### L 100.0100 ####[facility] [address] [place], [address] Nucleated RBC (Bld) [#/Vol] 0 10*3/uL Normal 0-5 [facility] Comment on above: Performed By: #### L 100.0100 ####[facility] [address] [place], [address] Platelet mean volume (Bld) [Entitic vol] 10.3 fL Normal 6.2-12.0 [facility] Comment on above: Performed By: #### L 100.0100 ####[facility] [address] [place], [address] Platelets (Bld) [#/Vol] 212 10*3/uL Normal 150-450 [facility] Comment on above: Performed By: #### L 100.0100 ####[facility] [address] [place], [address] RBC (Bld) [#/Vol] 3.11 10*6/uL Low 4.2-5.4 [facility] Comment on above: Performed By: #### L 100.0100 ####[facility] [address] [place], [address] RDW SD 38.3 fl Normal 35.1-43.9 [facility] Comment on above: Performed By: #### L 100.0100 ####[facility] [address] [place], [address] WBC (Bld) [#/Vol] 11.1 10*3/uL High 4.4-11.0 [facility] Comment on above: Performed By: #### L 100.0100 ####[facility] [address] [place], [address] Absolute Lymph 1.78 X10 3/uL Normal 0.83-4.51 [facility] Comment on above: Performed By: #### L 100.0100 ####[facility] [address] [place], [address] Absolute Neut 8.7 X10 3/uL High 2.0-7.7 [facility] Comment on above: Performed By: #### L 100.0100 ####[facility] [address] [place], [address] Basophils/100 WBC (Bld) 0.3 % Normal 0-1 [facility] Comment on above: Performed By: #### L 100.0100 ####[facility] [address] [place], [address] Eosinophils/100 WBC (Bld) 6.1 % High 0-5 [facility] Comment on above: Performed By: #### L 100.0100 ####[facility] [address] [place], [address] Erythrocyte distribution width (RBC) [Ratio] 12.6 % Normal 11.6-14.6 [facility] Comment on above: Performed By: #### L 100.0100 ####[facility] [address] [place], [address] Hematocrit (Bld) [Volume fraction] 26.5 % Low 37-47 [facility] Comment on above: Performed By: #### L 100.0100 ####[facility] [address] [place], [address] Hemoglobin (Bld) [Mass/Vol] 9.5 g/dL Low 12.0-15.0 [facility] Comment on above: Performed By: #### L 100.0100 ####[facility] [address] [place], [address] IG% 0.800 Normal 0.0-0.9 [facility] Comment on above: Result Comment: IG% - Immature Granulocytes (promyelocytes, myelocytes andmetamyelocytes) > 1% indicates that a LEFT SHIFT is Present. Performed By: #### L 100.0100 ####[facility] [address] [place], [address] Lymphocytes/100 WBC (Bld) 14.8 % Low 19-41 [facility] Comment on above: Performed By: #### L 100.0100 ####[facility] [address] [place], [address] MCH (RBC) [Entitic mass] 30.6 pg Normal 27.0-32.0 [facility] Comment on above: Performed By: #### L 100.0100 ####[facility] [address] [place], [address] MCHC (RBC) [Mass/Vol] 35.8 g/dL Normal 32-36 [facility] Comment on above: Performed By: #### L 100.0100 ####[facility] [address] [place], [address] MCV (RBC) [Entitic vol] 85.5 fL Normal 81-99 [facility] Comment on above: Performed By: #### L 100.0100 ####[facility] [address] [place], [address] Monocytes/100 WBC (Bld) 5.8 % Normal 0-10 [facility] Comment on above: Performed By: #### L 100.0100 ####[facility] [address] [place], [address] Neutrophils/100 WBC (Bld) 72.2 % High 47-70 [facility] Comment on above: Performed By: #### L 100.0100 ####[facility] [address] [place], [address] Nucleated RBC (Bld) [#/Vol] 0 10*3/uL Normal 0-5 [facility] Comment on above: Performed By: #### L 100.0100 ####[facility] [address] [place], [address] Platelet mean volume (Bld) [Entitic vol] 10.2 fL Normal 6.2-12.0 [facility] Comment on above: Performed By: #### L 100.0100 ####[facility] [address] [place], [address] Platelets (Bld) [#/Vol] 207 10*3/uL Normal 150-450 [facility] Comment on above: Performed By: #### L 100.0100 ####[facility] [address] [place], [address] RBC (Bld) [#/Vol] 3.10 10*6/uL Low 4.2-5.4 [facility] Comment on above: Performed By: #### L 100.0100 ####[facility] [address] [place], [address] RDW SD 37.8 fl Normal 35.1-43.9 [facility] Comment on above: Performed By: #### L 100.0100 ####[facility] [address] [place], [address] WBC (Bld) [#/Vol] 12.0 10*3/uL High 4.4-11.0 [facility] Comment on above: Performed By: #### L 100.0100 ####[facility] [address] 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 Expected to produce lower valuesthan the previous assay method.NEW Reference Range: 13 - 75 U/L Performed By: #### L 500.3400, L500.2500, L300.4310, L300.3900, L501.2450 ####[facility] [address] [place], [address] Liver Profileon 01-25-2025 Albumin [Mass/Vol] 4.0 g/dL Normal 3.5-5.0 [facility] Comment on above: Performed By: #### L 500.3400, L500.2500, L300.4310, L300.3900, L501.2450 ####[facility] [address] [place], [address] ALK PHOS 64 U/L Normal 35-104 [facility] Comment on above: Performed By: #### L 500.3400, L500.2500, L300.4310, L300.3900, L501.2450 ####[facility] [address] [place], [address] ALT [Catalytic activity/Vol] 58 U/L High <=34 [facility] Comment on above: Performed By: #### L 500.3400, L500.2500, L300.4310, L300.3900, L501.2450 ####[facility] [address] [place], [address] AST [Catalytic activity/Vol] 45 U/L High <=31 [facility] Comment on above: Performed By: #### L 500.3400, L500.2500, L300.4310, L300.3900, L501.2450 ####[facility] [address] [place], [address] Bilirubin [Mass/Vol] 1.07 mg/dL Normal 0.00-1.30 [facility] Comment on above: Performed By: #### L 500.3400, L500.2500, L300.4310, L300.3900, L501.2450 ####[facility] [address] [place], [address] Bilirubin.direct [Mass/Vol] 0.40 mg/dL High 0.00-0.30 [facility] Comment on above: Performed By: #### L 500.3400, L500.2500, L300.4310, L300.3900, L501.2450 ####[facility] [address] [place], [address] Globulin (S) [Mass/Vol] 2.7 g/dL Normal 2.2-4.2 [facility] Comment on above: Performed By: #### L 500.3400, L500.2500, L300.4310, L300.3900, L501.2450 ####[facility] [address] [place], [address] T PROT 6.7 g/dL Normal 5.9-8.4 [facility] Comment on above: Performed By: #### L 500.3400, L500.2500, L300.4310, L300.3900, L501.2450 ####[facility] [address] [place], [address] M100.678on 01-25-2025 M100.678 Normal Reference Ran ge = Negative FLUABV+SARS-CoV-2+RSV Pnl Resp JO ANN+probe GeneXpert Instrument, PCR method SARS-CoV-2 (COVID 19) Negative INFLUENZA A Negative INFLUENZA B Negative RSV PCR Negative Normal [facility] Comment on above: Performed By: #### M 100.678 ####[facility] [address] [place], [address] Partial Thromboplast Timeon 01-25-2025 aPTT Coag (Bld) [Time] 32.0 s Normal 24.1-36.2 [facility] Comment on above: Performed By: #### L 500.3400, L500.2500, L300.4310, L300.3900, L501.2450 ####[facility] [address] [place], [address] Prothrombin Time w/INRon INR Coag (PPP) [Relative time] 1.1 {INR} Normal [facility] Comment on above: Performed By: #### L 500.3400, L500.2500, L300.4310, L300.3900, L501.2450 ####[facility] [address] [place], [address] PT Coag (PPP) [Time] 14.0 s Normal 11.7-14.9 [facility] Comment on above: Performed By: #### L 500.3400, L500.2500, L300.4310, L300.3900, L501.2450 ####[facility] [address] [place], [address] Urinalysis, Completeon 01-25 BACTERIA RARE Normal None Seen [facility] Comment on above: Order Comment: FABBY CTOR TO SPECIFY Performed By: #### L 400.0001 ####[facility] [address] [place], [address] EPI,SQUAMOUS 0-5 SEEN Normal 5-10 [facility] Comment on above: Order Comment: FABBY CTOR TO SPECIFY Performed By: #### L 400.0001 ####[facility] [address] [place], [address] RBC 0-5 SEEN Normal 0-5 [facility] Comment on above: Order Comment: FABBY CTOR TO SPECIFY Performed By: #### L 400.0001 ####[facility] [address] [place], [address] WBC 0-5 SEEN Normal 0-5 [facility] Comment on above: Order Comment: FABBY CTOR TO SPECIFY Performed By: #### L 400.0001 ####[facility] [address] [place], [address] Mucus Ql (Urine sed) 0 SEEN Normal [facility] Comment on above: Order Comment: FABBY CTOR TO SPECIFY Performed By: #### L 400.0001 ####[facility] [address] [place], [address] Blue Split [employer]immer Office Visit Reporton 01-21-2025 Blue Split Trimmer Office Visit Report Normal [facility] Hepatitis B Core Ab Totalon 01-20-2025 HEP B CORE,TOT Negative Normal Negative [facility] Comment on above: Order Comment: Has p t arrived? Y Result Comment: Perf ormed at: - [facility] [address] [id number] Director: Dany White PhD, Phone: [phone] Performed By: #### L 2415.6748, N8862.1159, N8150.6819, X3894.8626, A6473.8032 ####[facility] [address] [place], [address] CBC-Complete Blood Cnt No Di ffon 01-19-2025 HCT Normal 37-47 [facility] Comment on above: Result Comment: Canc elled via OM: Order cancelled - Patient discharged Performed By: #### L 100.0500 ####[facility] [address] [place], [address] HGB Normal 12.0-15.0 [facility] Comment on above: Result Comment: Canc elled via OM: Order cancelled - Patient discharged Performed By: #### L 100.0500 ####[facility] [address] [place], [address] MCH Normal 27.0-32.0 [facility] Comment on above: Result Comment: Canc elled via OM: Order cancelled - Patient discharged Performed By: #### L 100.0500 ####[facility] [address] [place], [address] MCHC Normal 32-36 [facility] Comment on above: Result Comment: Canc elled via OM: Order cancelled - Patient discharged Performed By: #### L 100.0500 ####[facility] [address] [place], [address] MCV Normal 81-99 [facility] Comment on above: Result Comment: Canc elled via OM: Order cancelled - Patient discharged Performed By: #### L 100.0500 ####[facility] [address] [place], [address] PLT Normal 150-450 [facility] Comment on above: Result Comment: Canc elled via OM: Order cancelled - Patient discharged Performed By: #### L 100.0500 ####[facility] [address] [place], [address] RBC Normal 4.2-5.4 [facility] Comment on above: Result Comment: Canc elled via OM: Order cancelled - Patient discharged Performed By: #### L 100.0500 ####[facility] [address] [place], [address] RDW CV Normal 11.6-14.6 [facility] Comment on above: Result Comment: Canc elled via OM: Order cancelled - Patient discharged Performed By: #### L 100.0500 ####[facility] [address] [place], [address] RDW SD Normal 35.1-43.9 [facility] Comment on above: Result Comment: Canc elled via OM: Order cancelled - Patient discharged Performed By: #### L 100.0500 ####[facility] [address] [place], [address] WBC Normal 4.4-11.0 [facility] Comment on above: Result Comment: Canc elled via OM: Order cancelled - Patient discharged Performed By: #### L 100.0500 ####[facility] [address] [place], [address] 12 Lead EKGon 01-18-2025 12 Lead EKG Normal [facility] Bedside Glucoseon 01-18-2025 FINGERSTICK GLU 85 mg/dL Normal 74-106 [facility] Comment on above: Result Comment: KAREL YARBROUGH OF PATIENT CARE PER NURSING PROTOCOL Performed By: #### L 501.080 ####[facility] [address] [place], [address] CBC W/Diff, Automatedon 10-2 Absolute Lymph 1.17 X10 3/uL Normal 0.83-4.51 [facility] Comment on above: Performed By: #### L 100.0100 ####[facility] [address] [place], [address] Absolute Neut 11.6 X10 3/uL High 2.0-7.7 [facility] Comment on above: Performed By: #### L 100.0100 ####[facility] [address] [place], [address] Basophils/100 WBC (Bld) 0.3 % Normal 0-1 [facility] Comment on above: Performed By: #### L 100.0100 ####[facility] [address] [place], [address] Eosinophils/100 WBC (Bld) 0.2 % Normal 0-5 [facility] Comment on above: Performed By: #### L 100.0100 ####[facility] [address] [place], [address] Erythrocyte distribution width (RBC) [Ratio] 11.9 % Normal 11.6-14.6 [facility] Comment on above: Performed By: #### L 100.0100 ####[facility] [address] [place], [address] Hematocrit (Bld) [Volume fraction] 35.8 % Low 37-47 [facility] Comment on above: Performed By: #### L 100.0100 ####[facility] [address] [place], [address] Hemoglobin (Bld) [Mass/Vol] 12.7 g/dL Normal 12.0-15.0 [facility] Comment on above: Performed By: #### L 100.0100 ####[facility] [address] [place], [address] IG% 0.300 Normal 0.0-0.9 [facility] Comment on above: Result Comment: IG% - Immature Granulocytes (promyelocytes, myelocytes andmetamyelocytes) > 1% indicates that a LEFT SHIFT is Present. Performed By: #### L 100.0100 ####[facility] [address] [place], [address] Lymphocytes/100 WBC (Bld) 9.0 % Low 19-41 [facility] Comment on above: Performed By: #### L 100.0100 ####[facility] [address] [place], [address] MCH (RBC) [Entitic mass] 29.8 pg Normal 27.0-32.0 [facility] Comment on above: Performed By: #### L 100.0100 ####[facility] [address] [place], [address] MCHC (RBC) [Mass/Vol] 35.5 g/dL Normal 32-36 [facility] Comment on above: Performed By: #### L 100.0100 ####[facility] [address] [place], [address] MCV (RBC) [Entitic vol] 84.0 fL Normal 81-99 [facility] Comment on above: Performed By: #### L 100.0100 ####[facility] [address] [place], [address] Monocytes/100 WBC (Bld) 0.8 % Normal 0-10 [facility] Comment on above: Performed By: #### L 100.0100 ####[facility] [address] [place], [address] Neutrophils/100 WBC (Bld) 89.4 % High 47-70 [facility] Comment on above: Performed By: #### L 100.0100 ####[facility] [address] [place], [address] Nucleated RBC (Bld) [#/Vol] 0 10*3/uL Normal 0-5 [facility] Comment on above: Performed By: #### L 100.0100 ####[facility] [address] [place], [address] Platelet mean volume (Bld) [Entitic vol] 10.4 fL Normal 6.2-12.0 [facility] Comment on above: Performed By: #### L 100.0100 ####[facility] [address] [place], [address] Platelets (Bld) [#/Vol] 238 10*3/uL Normal 150-450 [facility] Comment on above: Performed By: #### L 100.0100 ####[facility] [address] [place], [address] RBC (Bld) [#/Vol] 4.26 10*6/uL Normal 4.2-5.4 [facility] Comment on above: Performed By: #### L 100.0100 ####[facility] [address] [place], [address] RDW SD 35.8 fl Normal 35.1-43.9 [facility] Comment on above: Performed By: #### L 100.0100 ####[facility] [address] [place], [address] WBC (Bld) [#/Vol] 13.0 10*3/uL High 4.4-11.0 [facility] Comment on above: Performed By: #### L 100.0100 ####[facility] [address] [place], [address] CBC-Complete Blood Cnt No Di ffon 01-18-2025 Erythrocyte distribution width (RBC) [Ratio] 11.8 % Normal 11.6-14.6 [facility] Comment on above: Performed By: #### L 400.7600, L100.0500 ####[facility] [address] [place], [address] Hematocrit (Bld) [Volume fraction] 37.1 % Normal 37-47 [facility] Comment on above: Performed By: #### L 400.7600, L100.0500 ####[facility] [address] [place], [address] Hemoglobin (Bld) [Mass/Vol] 13.2 g/dL Normal 12.0-15.0 [facility] Comment on above: Performed By: #### L 400.7600, L100.0500 ####[facility] [address] [place], [address] MCH (RBC) [Entitic mass] 30.0 pg Normal 27.0-32.0 [facility] Comment on above: Performed By: #### L 400.7600, L100.0500 ####[facility] [address] [place], [address] MCHC (RBC) [Mass/Vol] 35.6 g/dL Normal 32-36 [facility] Comment on above: Performed By: #### L 400.7600, L100.0500 ####[facility] [address] [place], [address] MCV (RBC) [Entitic vol] 84.3 fL Normal 81-99 [facility] Comment on above: Performed By: #### L 400.7600, L100.0500 ####[facility] [address] [place], [address] Platelet mean volume (Bld) [Entitic vol] 10.2 fL Normal 6.2-12.0 [facility] Comment on above: Performed By: #### L 400.7600, L100.0500 ####[facility] [address] [place], [address] Platelets (Bld) [#/Vol] 230 10*3/uL Normal 150-450 [facility] Comment on above: Performed By: #### L 400.7600, L100.0500 ####[facility] [address] [place], [address] RBC (Bld) [#/Vol] 4.40 10*6/uL Normal 4.2-5.4 [facility] Comment on above: Performed By: #### L 400.7600, L100.0500 ####[facility] [address] [place], [address] RDW SD 36.0 fl Normal 35.1-43.9 [facility] Comment on above: Performed By: #### L 400.7600, L100.0500 ####[facility] [address] [place], [address] WBC (Bld) [#/Vol] 7.6 10*3/uL Normal 4.4-11.0 [facility] Comment on above: Performed By: #### L 400.7600, L100.0500 ####[facility] [address] [place], [address] Discharge Instructionon 12-30 Discharge Instruction Normal [facility] HIVon 01-18-2025 HIV Non-Reactive Normal Nonreactive [facility] Comment on above: Order Comment: Reaso n for Exam: exposure Result Comment: Non- ReactiveReactiveRepeatedly reactive samples must be confirmed according toCDC recommended confirmatory algorithms. The subresults foreither HIVAG or AHIV can be used as an aid in the selectionof the confirmation algorithm for reactive samples.Send out specimens with Reactive results to [facility] forconfirmation.Order the HIV antibody detection and differentiation:lc#[id number] Performed By: #### L 3100.0460, L3890.6006, L3890.6301, L3890.6102, L3890.6202 ####[facility] [address] [place], [address] Hepatitis B Surface Antibody on 01-18-2025 HEP B Surf Ab REAC Normal [facility] Comment on above: Result Comment: <8.5 mIU/mL: Non-Reactive8.5<= x <11.5 mIU/mL: Indeterminate>=11.5 mIU/mL: Reactive Non Reactive: Inconsistent with immunity less than <10 mIU/mL Reactive: Consistent with immunity greater than or equal to 10 mIU/mL Performed By: #### L 3100.0460, L3890.6006, L3890.6301, L3890.6102, L3890.6202 ####[facility] [address] [place], [place], [address] Hepatitis C Antibodyon 01-18 Hepatitis C Ab Non-Reactive Normal Nonreactive [facility] Comment on above: Order Comment: Reaso n for Exam: exposure Result Comment: Reac tive: Presumptive evidence of antibodies to HCV. [facility] recommendations for supplemental testing.Non-Reactive: Antibodies to HCV were not detected; does notexclude the possibility of exposure to HCVReactive Results are presumptive evidence of antibodies toHCV. Follow CDC recommendations for supplemental testing.Order confirmation testing: HCV Quant by PCR testing -HCVPCR #[id number] Non Reactive: < 0.8 Equivocal: >/= 0.8 to < 1.0 Reactive: >/= 1.0The [facility] requires that a reactive/equivocal HCV antibodyresult be sent out for confirmation. HCV Quant by PCRtesting. Performed By: #### L 3100.0460, L3890.6006, L3890.6301, L3890.6102, L3890.6202 ####[facility] [address] [place], [place], [address] L3890.6102on 01-18-2025 HEP B Surf Ag Non-Reactive Normal Nonreactive [facility] Comment on above: Order Comment: Reaso n for Exam: exposure Result Comment: Reac tive: Presumptive evidence of HBV. Repeatedly reactivesamples must be confirmed using a neutralization test([employer] HBsAg Confirmatory Test)Non-Reactive: HBsAg not detected; does not exclude thepossibility of exposure to HBV Performed By: #### L 3100.0460, L3890.6006, L3890.6301, L3890.6102, L3890.6202 ####[facility] [address] [place], [address] MR/POSTOP.ANEon 01-18-2025 MR/POSTOP.ANE Normal [facility] MR/EYGIGJOV9wz 01-18-2025 MR/POSTOPAN2 Normal [facility] Operative Reporton Operative Report Normal [facility] ,Urineon 01-18-2025 Beta HCG ( test) Ql (U) Negative Normal [facility] Comment on above: Result Comment: Very dilute urine specimens, as indicated by a low specificgravity, may not contain claims customer service representative levels of hCG.If is still suspected, a first morning urinespecimen should be collected 48 hours later and tested. Performed By: #### L 400.7600, L100.0500 ####[facility] [address] [place], [address] Surgery Specimen Level Von 1 Surgery Specimen Level V Normal [facility] Comment on above: Performed By: #### P SUV ####[facility] [address] [place], [address] CBC-Complete Blood Cnt No Di ffon 01-04-2025 Erythrocyte distribution width (RBC) [Ratio] 11.5 % Low 11.6-14.6 [facility] Comment on above: Performed By: #### L 100.0500, BTSPAT ####[facility] [address] [place], [address] Hematocrit (Bld) [Volume fraction] 37.7 % Normal 37-47 [facility] Comment on above: Performed By: #### L 100.0500, BTSPAT ####[facility] [address] [place], [address] Hemoglobin (Bld) [Mass/Vol] 13.2 g/dL Normal 12.0-15.0 [facility] Comment on above: Performed By: #### L 100.0500, BTSPAT ####[facility] [address] [place], [address] MCH (RBC) [Entitic mass] 29.4 pg Normal 27.0-32.0 [facility] Comment on above: Performed By: #### L 100.0500, BTSPAT ####[facility] [address] [place], [address] MCHC (RBC) [Mass/Vol] 35.0 g/dL Normal 32-36 [facility] Comment on above: Performed By: #### L 100.0500, BTSPAT ####[facility] [address] [place], [address] MCV (RBC) [Entitic vol] 84.0 fL Normal 81-99 [facility] Comment on above: Performed By: #### L 100.0500, BTSPAT ####[facility] [address] [place], [address] Platelet mean volume (Bld) [Entitic vol] 10.3 fL Normal 6.2-12.0 [facility] Comment on above: Performed By: #### L 100.0500, BTSPAT ####[facility] [address] [place], [address] Platelets (Bld) [#/Vol] 268 10*3/uL Normal 150-450 [facility] Comment on above: Performed By: #### L 100.0500, BTSPAT ####[facility] [address] [place], [address] RBC (Bld) [#/Vol] 4.49 10*6/uL Normal 4.2-5.4 [facility] Comment on above: Performed By: #### L 100.0500, BTSPAT ####[facility] [address] [place], [address] RDW SD 35.1 fl Normal 35.1-43.9 [facility] Comment on above: Performed By: #### L 100.0500, BTSPAT ####[facility] [address] [place], [address] WBC (Bld) [#/Vol] 9.2 10*3/uL Normal 4.4-11.0 [facility] Comment on above: Performed By: #### L 100.0500, BTSPAT ####[facility] [address] [place], [address] MR/PAT.ANEon 01-04-2025 MR/PAT.ANE Normal [facility] Magnesiumon 01-04-2025 Magnesium [Mass/Vol] 1.9 mg/dL Normal 1.5-2.2 [facility] Comment on above: Performed By: #### L 501.5200 ####[facility] [address] [place], [address] Type AND Screen - PAT ONLYon 01-04-2025 Ab SCREEN GEL Negative Normal [facility] Comment on above: Order Comment: Surge ry Date: 01/18/25Reason for Laboratory Test [id number] Performed By: #### L 100.0500, BTSPAT ####[facility] [address] [place], [address] PAP IG HPV APTIMA 16/18,45on 12-24-2024 ADEQ Comment Normal . [facility] Comment on above: Order Comment: Speci men Comment: [id number] Comment: No. of containers..01 ThinPrep Vial Result Comment: Sati sfactory for evaluation. No endocervical component is identified. Performed By: #### L 7400.0280 ####[facility] [address] [place], [address] COMM . Normal . [facility] Comment on above: Order Comment: Speci men Comment: [id number] Comment: No. of containers..01 ThinPrep Vial Performed By: #### L 7400.0280 ####[facility] [address] [place], [place], [address] COMMENT Comment Normal . [facility] Comment on above: Order Comment: Speci men Comment: [id number] Comment: No. of containers..01 ThinPrep Vial Result Comment: This liquid based ThinPrep(R) pap test was screened withthe use of an image guided system. Performed By: #### L 7400.0280 ####[facility] [address] [place], [address] DIAG Comment Normal . [facility] Comment on above: Order Comment: Speci men Comment: [id number] Comment: No. of containers..01 ThinPrep Vial Result Comment: NEGA TIVE FOR INTRAEPITHELIAL LESION OR MALIGNANCY. Performed By: #### L 7400.0280 ####[facility] [address] [place], [place], [address] HPV APTIMA, HR Negative Normal Negative [facility] Comment on above: Order Comment: Speci men Comment: [id number] Comment: No. of containers..01 ThinPrep Vial Result Comment: This nucleic acid amplification test detects fourteen high-risk HPV types (16,18,31,33,35,39,45,51,52,56,58,59,66,68)without differentiation. Performed By: #### L 7400.0280 ####[facility] [address] [place], [place], [address] HPV Ina Rfx Comment Normal . [facility] Comment on above: Order Comment: Speci men Comment: [id number] Comment: No. of containers..01 ThinPrep Vial Result Comment: Crit eria not met, HPV Genotype not performed.Performed at: [address] [id number] Director: Litzy Delong MD, Phone: [phone] at: =[address] Dean StreetClaudeGeorgi [place] [id number] Director: Litzy Delong MD, Phone: [phone] Performed By: #### L 7400.0280 ####[facility] [address] [place], [place], [id number] PAPSMR Comment Normal . [facility] Comment on above: Order Comment: Speci men Comment: [id number] Comment: No. of containers..01 ThinPrep Vial Result Comment: The Pap smear is a screening test designed to aid in thedetection of premalignant and malignant conditions of theuterine cervix. It is not a diagnostic procedure andshould not be used as the sole means of detecting cervicalcancer. Both false-positive and false-negative reports dooccur. Performed By: #### L 7400.0280 ####[facility] [address] [place], [place], [id number] PERFORM Comment Normal . [facility] Comment on above: Order Comment: Speci men Comment: [id number] Comment: No. of containers..01 ThinPrep Vial Result Comment: Malgorzata Shafer, Registered Nurse First Assistant (ASCP) Performed By: #### L 7400.0280 ####[facility] [address] [place], [place], [address] Blue Split Trimmer Office Visit Reporton 12-21-2024 [facility] Office Visit Report Normal [facility] Surgery Specimen Level Gabriella 12-21-2024 Surgery Specimen Level IV Normal [facility] Comment on above: Performed By: #### P SUIV ####[facility] [address] [place], [place], [id number] MR/BMS.BPon 12-06-2024 MR/BMS.BP Normal [facility]immer Office Visit Reporton 10-22-2024 [facility] Office Visit Report Normal [facility] L5500.0550on 10-12-2024 BEEF <0.10 Normal Class 0 [facility] Comment on above: Performed By: #### L 5500.0550, L3410.2400 ####[facility] [address] [place], [address] CHOCOLATE <0.10 Normal Class 0 [facility] Comment on above: Performed By: #### L 5500.0550, L3410.2400 ####[facility] [address] [place], [address] CODFISH <0.10 Normal Class 0 [facility] Comment on above: Performed By: #### L 5500.0550, L3410.2400 ####[facility] [address] [place], [address] COMMENT Comment Normal . [facility] Comment on above: Result Comment: Laurita arnold of Specific IgE Class Description of Class ----- < 0.10 0 Negative 0.10 - 0.31 0/I Equivocal/Low 0.32 - 0.55 I Low 0.56 - 1.40 II Moderate 1.41 - 3.90 III High 3.91 - 19.00 IV Very High 19.01 - 100.00 V Very High >100.00 Very High Performed By: #### L 5500.0550, L3410.2400 ####[facility] [address] [place], [address] CORN <0.10 Normal Class 0 [facility] Comment on above: Performed By: #### L 5500.0550, L3410.2400 ####[facility] [address] [place], [address] EGG, WHOLE <0.10 Normal Class 0 [facility] Comment on above: Result Comment: Perf ormed at: [address], [place] [id number] Director: Jacinto Shea MD, Phone: [phone] Performed By: #### L 5500.0550, L3410.2400 ####[facility] [address] [place], [address] MILK (COW) <0.10 Normal Class 0 [facility] Comment on above: Performed By: #### L 5500.0550, L3410.2400 ####[facility] [address] [place], [address] MUSSELS <0.10 Normal Class 0 [facility] Comment on above: Performed By: #### L 5500.0550, L3410.2400 ####[facility] [address] [place], [address] PEANUT <0.10 Normal Class 0 [facility] Comment on above: Performed By: #### L 5500.0550, L3410.2400 ####[facility] [address] [place], [address] PORK <0.10 Normal Class 0 [facility] Comment on above: Performed By: #### L 5500.0550, L3410.2400 ####[facility] [address] [place], [address] SALMON <0.10 Normal Class 0 [facility] Comment on above: Performed By: #### L 5500.0550, L3410.2400 ####[facility] [address] [place], [address] SHRIMP <0.10 Normal Class 0 [facility] Comment on above: Performed By: #### L 5500.0550, L3410.2400 ####[facility] [address] [place], [address] SOYBEAN <0.10 Normal Class 0 [facility] Comment on above: Performed By: #### L 5500.0550, L3410.2400 ####[facility] [address] [place], [address] TUNA <0.10 Normal Class 0 [facility] Comment on above: Performed By: #### L 5500.0550, L3410.2400 ####[facility] [address] [place], [address] WHEAT <0.10 Normal Class 0 [facility] Comment on above: Performed By: #### L 5500.0550, L3410.2400 ####[facility] [address] [place], [address] M7400.3302on 10-08-2024 M7400.3302 Normal [facility] Comment on above: Performed By: #### L 7000.0750, M100.637, M100.7900, M100.6796, M7400.3302, L7000.0700, M600.5000 ####[facility] [address] [place], [address] Ova and Parasites 8623on OP Normal [facility] Comment on above: Performed By: #### L 7000.0750, M100.637, M100.7900, M100.6796, M7400.3302, L7000.0700, M600.5000 ####[facility] [address] [place], [address] Celiac Disease Profileon ENDOMYSIAL IGA Negative Normal Negative [facility] Comment on above: Performed By: #### L 5500.0550, L3410.2400 ####[facility] [address] [place], [address] IMMUNOGLOB A QN 60 mg/dL Low 87-352 [facility] Comment on above: Performed By: #### L 5500.0550, L3410.2400 ####[facility] [address] [place], [address] tTG IGA <2 Normal 0-3 [facility] Comment on above: Result Comment: Nega tive 0 - 3 Weak Positive 4 - 10 Positive >10 Tissue Transglutaminase (tTG) has been identified as the endomysial antigen. Studies have demonstr- ated that endomysial IgA antibodies have over 99% specificity for gluten sensitive enteropathy. Performed By: #### L 5500.0550, L3410.2400 ####[facility] [address] [place], [address] tTG IGG 2 U/mL Normal 0-5 [facility] Comment on above: Result Comment: Nega tive 0 - 5 Weak Positive 6 - 9 Positive >9Performed at: [facility] [id number] Director: Dany White PhD, Phone: [phone] Performed By: #### L 5500.0550, [id number] ####[facility] [address] [place], [place], [address] Calprotectin, Stoolon [address] 67 ug/g Normal 0-120 [facility] Comment on above: Result Comment: Conc entration Interpretation Follow-Up< 5 - 50 ug/g Normal None>50 -120 ug/g Borderline Re-evaluate in 4-6 weeks >120 ug/g Abnormal Repeat as clinically indicatedPerformed at: - [facility] [id number] Director: Jacinto Shea MD, Phone: [phone] Performed By: #### L 7000.0750, M100.637, M100.7900, M100.6796, M7400.3302, L7000.0700, M600.5000 ####[facility] [address] [place], [address] Gastroenterology Visit Repor ton 10-05-2024 Gastroenterology Visit Report Normal [facility] L7000.0750on 10-05-2024 P ELASTASE,FECA > 800 Normal >200 [facility] Comment on above: Result Comment: Resu lt Units: ug Elast./g Severe Pancreatic Insufficiency: <100 Moderate Pancreatic Insufficiency: 100 - 200 Normal: >200Performed at: [address] [id number] Director: Jacinto Shea MD, Phone: [phone] Performed By: #### L 7000.0750, M100.637, M100.7900, M100.6796, M7400.3302, L7000.0700, M600.5000 ####[facility] [address] [place], [place], [address] CDIFF (PCR)on 09-30-2024 CDIFF Normal [facility] Comment on above: Performed By: #### L 7000.0750, M100.637, M100.7900, M100.6796, M7400.3302, L7000.0700, M600.5000 ####[facility] [address] [place], [place], [id number] ENTERIC PATHOGEN PANEL STOOL on 09-30-2024 EP PANEL Normal [facility] Comment on above: Performed By: #### L 7000.0750, M100.637, M100.7900, M100.6796, M7400.3302, L7000.0700, M600.5000 ####[facility] [address] [place], [address] Stool Occult Blood iFOBon STOB Negative Normal [facility] Comment on above: Performed By: #### L 7000.0750, M100.637, M100.7900, M100.6796, M7400.3302, L7000.0700, M600.5000 ####[facility] [address] [place], [address] CBC W/Diff, Automatedon 07-0 2-2024 Absolute Lymph 2.99 X10 3/uL Normal 0.83-4.51 [facility] Comment on above: Performed By: #### L 500.4050, L100.0100 ####[facility] [address] [place], [address] Absolute Neut 3.8 X10 3/uL Normal 2.0-7.7 [facility] Comment on above: Performed By: #### L 500.4050, L100.0100 ####[facility] [address] [place], [address] Basophils/100 WBC (Bld) 0.5 % Normal 0-1 [facility] Comment on above: Performed By: #### L 500.4050, L100.0100 ####[facility] [address] [place], [address] Eosinophils/100 WBC (Bld) 4.0 % Normal 0-5 [facility] Comment on above: Performed By: #### L 500.4050, L100.0100 ####[facility] [address] [place], [address] Erythrocyte distribution width (RBC) [Ratio] 11.9 % Normal 11.6-14.6 [facility] Comment on above: Performed By: #### L 500.4050, L100.0100 ####[facility] [address] [place], [address] Hematocrit (Bld) [Volume fraction] 38.3 % Normal 37-47 [facility] Comment on above: Performed By: #### L 500.4050, L100.0100 ####[facility] [address] [place], [address] Hemoglobin (Bld) [Mass/Vol] 13.7 g/dL Normal 12.0-15.0 [facility] Comment on above: Performed By: #### L 500.4050, L100.0100 ####[facility] [address] [place], [address] IG% 0.100 Normal 0.0-0.9 [facility] Comment on above: Result Comment: IG% - Immature Granulocytes (promyelocytes, myelocytes andmetamyelocytes) > 1% indicates that a LEFT SHIFT is Present. Performed By: #### L 500.4050, L100.0100 ####[facility] [address] [place], [address] Lymphocytes/100 WBC (Bld) 39.8 % Normal 19-41 [facility] Comment on above: Performed By: #### L 500.4050, L100.0100 ####[facility] [address] [place], [address] MCH (RBC) [Entitic mass] 30.2 pg Normal 27.0-32.0 [facility] Comment on above: Performed By: #### L 500.4050, L100.0100 ####[facility] [address] [place], [address] MCHC (RBC) [Mass/Vol] 35.8 g/dL Normal 32-36 [facility] Comment on above: Performed By: #### L 500.4050, L100.0100 ####[facility] [address] [place], [address] MCV (RBC) [Entitic vol] 84.4 fL Normal 81-99 [facility] Comment on above: Performed By: #### L 500.4050, L100.0100 ####[facility] [address] [place], [address] Monocytes/100 WBC (Bld) 5.6 % Normal 0-10 [facility] Comment on above: Performed By: #### L 500.4050, L100.0100 ####[facility] [address] [place], [address] Neutrophils/100 WBC (Bld) 50.0 % Normal 47-70 [facility] Comment on above: Performed By: #### L 500.4050, L100.0100 ####[facility] [address] [place], [address] Nucleated RBC (Bld) [#/Vol] 0 10*3/uL Normal 0-5 [facility] Comment on above: Performed By: #### L 500.4050, L100.0100 ####[facility] [address] [place], [address] Platelet mean volume (Bld) [Entitic vol] 10.6 fL Normal 6.2-12.0 [facility] Comment on above: Performed By: #### L 500.4050, L100.0100 ####[facility] [address] [place], [address] Platelets (Bld) [#/Vol] 237 10*3/uL Normal 150-450 [facility] Comment on above: Performed By: #### L 500.4050, L100.0100 ####[facility] [address] [place], [address] RBC (Bld) [#/Vol] 4.54 10*6/uL Normal 4.2-5.4 [facility] Comment on above: Performed By: #### L 500.4050, L100.0100 ####[facility] [address] [place], [address] RDW SD 36.3 fl Normal 35.1-43.9 [facility] Comment on above: Performed By: #### L 500.4050, L100.0100 ####[facility] [address] [place], [address] WBC (Bld) [#/Vol] 7.5 10*3/uL Normal 4.4-11.0 [facility] Comment on above: Performed By: #### L 500.4050, L100.0100 ####[facility] [address] [place], [address] Comprehensive Metabolic Prof ilon 09-29-2024 Albumin [Mass/Vol] 4.4 g/dL Normal 3.5-5.0 [facility] Comment on above: Performed By: #### L 500.4050, L100.0100 ####[facility] [address] [place], [address] Albumin/Globulin [Mass ratio] 1.5 {ratio} Normal 0.9-2.4 [facility] Comment on above: Performed By: #### L 500.4050, L100.0100 ####[facility] [address] [place], [address] ALK PHOS 53 U/L Normal 35-104 [facility] Comment on above: Performed By: #### L 500.4050, L100.0100 ####[facility] [address] [place], [address] ALT [Catalytic activity/Vol] 25 U/L Normal <=34 [facility] Comment on above: Performed By: #### L 500.4050, L100.0100 ####[facility] [address] [place], [address] AST [Catalytic activity/Vol] 29 U/L Normal <=31 [facility] Comment on above: Performed By: #### L 500.4050, L100.0100 ####[facility] [address] [place], [address] Bilirubin [Mass/Vol] 0.29 mg/dL Normal 0.00-1.30 [facility] Comment on above: Performed By: #### L 500.4050, L100.0100 ####[facility] [address] [place], [address] BUN/CRE 18.5 RATIO Normal 10-20 [facility] Comment on above: Performed By: #### L 500.4050, L100.0100 ####[facility] [address] [place], [address] Calcium [Mass/Vol] 9.5 mg/dL Normal 7.6-11.0 [facility] Comment on above: Performed By: #### L 500.4050, L100.0100 ####[facility] [address] [place], [address] Chloride [Moles/Vol] 102 mmol/L Normal 98-108 [facility] Comment on above: Performed By: #### L 500.4050, L100.0100 ####[facility] [address] [place], [address] CO2 [Moles/Vol] 22.0 mmol/L Normal 21.0-32.0 [facility] Comment on above: Performed By: #### L 500.4050, L100.0100 ####[facility] [address] [place], [address] Creatinine [Mass/Vol] 0.74 mg/dL Normal 0.70-1.20 [facility] Comment on above: Performed By: #### L 500.4050, L100.0100 ####[facility] [address] [place], [address] GAP 12 Normal 5-15 [facility] Comment on above: Performed By: #### L 500.4050, L100.0100 ####[facility] [address] [place], [address] GFR/1.73 sq M.predicted among non-blacks MDRD (S/P/Bld) [Vol rate/Area] 106 mL/min/{1.73_m2} Normal >60 [facility] Comment on above: Result Comment: mL/m in/1.73m2 CKD-EPI Creatinine Equation (2020) Performed By: #### L 500.4050, L100.0100 ####[facility] [address] [place], [address] Globulin (S) [Mass/Vol] 2.9 g/dL Normal 2.2-4.2 [facility] Comment on above: Performed By: #### L 500.4050, L100.0100 ####[facility] [address] [place], [address] Glucose [Mass/Vol] 109 mg/dL High 70-99 [facility] Comment on above: Performed By: #### L 500.4050, L100.0100 ####[facility] [address] [place], [address] Potassium [Moles/Vol] 3.5 mmol/L Normal 3.3-5.1 [facility] Comment on above: Performed By: #### L 500.4050, L100.0100 ####[facility] [address] [place], [address] Sodium [Moles/Vol] 136 mmol/L Normal 133-145 [facility] Comment on above: Performed By: #### L 500.4050, L100.0100 ####[facility] [address] [place], [address] T PROT 7.3 g/dL Normal 5.9-8.4 [facility] Comment on above: Performed By: #### L 500.4050, L100.0100 ####[facility] [address] [place], [address] Urea nitrogen [Mass/Vol] 14 mg/dL Normal 4-19 [facility] Comment on above: Performed By: #### L 500.4050, L100.0100 ####[facility] [address] [place], [address] Urine Cultureon 09-02-2024 [facility] Pending Mixed Gram Positive Organisms [place] Count 80,000-100,000 MIXC Mixed contaminants. Submit a new specimen if indicated. Normal [facility] Comment on above: Performed By: #### L 400.2010, ####[facility] [address] [place], [address] Urinalysis, Routine (Dipstic k)on 08-31-2024 BILIRUBIN URINE Negative Normal Negative [facility] Comment on above: Order Comment: CLEAN CATCH Performed By: #### L 400.2010, ####[facility] [address] [place], [address] Clarity (U) Sl. Cloudy Normal Clear [facility] Comment on above: Order Comment: CLEAN CATCH Performed By: #### L 400.2010, ####[facility] [address] [place], [address] Color (U) Yellow Normal Yellow [facility] Comment on above: Order Comment: CLEAN CATCH Performed By: #### L 400.2010, ####[facility] [address] [place], [address] GLUCOSE, UR Normal Normal Normal [facility] Comment on above: Order Comment: CLEAN CATCH Performed By: #### L 400.2010, ####[facility] [address] [place], [address] KETONE UR Negative Normal Negative [facility] Comment on above: Order Comment: CLEAN CATCH Performed By: #### L 400.2010, ####[facility] [address] [place], [address] LEUK ESTERASE Negative Normal Negative [facility] Comment on above: Order Comment: CLEAN CATCH Performed By: #### L 400.2010, ####[facility] [address] [place], [address] Nitrite Ql (U) Negative Normal Negative [facility] Comment on above: Order Comment: CLEAN CATCH Performed By: #### L 400.2010, ####[facility] [address] [place], [address] OCCULT BLOOD-UR 10 /ul Abnormal Negative [facility] Comment on above: Order Comment: CLEAN CATCH Performed By: #### L 400.2010, ####[facility] [address] [place], [address] pH UR 7.0 Normal 5.0 - 8.0 [facility] Comment on above: Order Comment: CLEAN CATCH Performed By: #### L 400.2010, ####[facility] [address] [place], [address] PROT DIPSTX 15 mg/dl Abnormal Negative [facility] Comment on above: Order Comment: CLEAN CATCH Performed By: #### L 400.2010, ####[facility] [address] [place], [address] SP.GR. DIPSTX 1.010 Normal 1.002-1.030 [facility] Comment on above: Order Comment: CLEAN CATCH Performed By: #### L 400.2010, ####[facility] [address] [place], [address] UROBILI Normal Normal Normal [facility] Comment on above: Order Comment: CLEAN CATCH Performed By: #### L 400.2010, ####[facility] [address] [place], [address] Gastric Emptying Studyon Gastric Emptying Study Normal [facility] CCP IgG Antibodieson 025 CCP IgG Ab. 6 units Normal 0-19 [facility] Comment on above: Result Comment: Nega tive <20 Weak positive 20 - 39 Moderate positive 40 - 59 Strong positive >59Performed at: [facility] [address] [id number] Director: Dany White PhD, Phone: [phone] Performed By: #### L 501.1368, L518.5510, L101.9905, L4600.0100 ####[facility] [address] [place], [address] CBC W/Diff, Automatedon 06-30 Absolute Lymph 3.19 X10 3/uL Normal 0.83-4.51 [facility] Comment on above: Performed By: #### L 100.0100 ####[facility] [address] [place], [address] Absolute Neut 5.5 X10 3/uL Normal 2.0-7.7 [facility] Comment on above: Performed By: #### L 100.0100 ####[facility] [address] [place], [address] Basophils/100 WBC (Bld) 0.5 % Normal 0-1 [facility] Comment on above: Performed By: #### L 100.0100 ####[facility] [address] [place], [address] Eosinophils/100 WBC (Bld) 3.7 % Normal 0-5 [facility] Comment on above: Performed By: #### L 100.0100 ####[facility] [address] [place], [address] Erythrocyte distribution width (RBC) [Ratio] 12.3 % Normal 11.6-14.6 [facility] Comment on above: Performed By: #### L 100.0100 ####[facility] [address] [place], [address] Hematocrit (Bld) [Volume fraction] 38.6 % Normal 37-47 [facility] Comment on above: Performed By: #### L 100.0100 ####[facility] [address] [place], [address] Hemoglobin (Bld) [Mass/Vol] 13.8 g/dL Normal 12.0-15.0 [facility] Comment on above: Performed By: #### L 100.0100 ####[facility] [address] [place], [address] IG% 0.300 Normal 0.0-0.9 [facility] Comment on above: Result Comment: IG% - Immature Granulocytes (promyelocytes, myelocytes andmetamyelocytes) > 1% indicates that a LEFT SHIFT is Present. Performed By: #### L 100.0100 ####[facility] [address] [place], [address] Lymphocytes/100 WBC (Bld) 32.8 % Normal 19-41 [facility] Comment on above: Performed By: #### L 100.0100 ####[facility] [address] [place], [address] MCH (RBC) [Entitic mass] 30.7 pg Normal 27.0-32.0 [facility] Comment on above: Performed By: #### L 100.0100 ####[facility] [address] [place], [address] MCHC (RBC) [Mass/Vol] 35.8 g/dL Normal 32-36 [facility] Comment on above: Performed By: #### L 100.0100 ####[facility] [address] [place], [address] MCV (RBC) [Entitic vol] 86.0 fL Normal 81-99 [facility] Comment on above: Performed By: #### L 100.0100 ####[facility] [address] [place], [address] Monocytes/100 WBC (Bld) 6.0 % Normal 0-10 [facility] Comment on above: Performed By: #### L 100.0100 ####[facility] [address] [place], [address] Neutrophils/100 WBC (Bld) 56.7 % Normal 47-70 [facility] Comment on above: Performed By: #### L 100.0100 ####[facility] [address] [place], [address] Nucleated RBC (Bld) [#/Vol] 0 10*3/uL Normal 0-5 [facility] Comment on above: Performed By: #### L 100.0100 ####[facility] [address] [place], [address] Platelet mean volume (Bld) [Entitic vol] 10.7 fL Normal 6.2-12.0 [facility] Comment on above: Performed By: #### L 100.0100 ####[facility] [address] [place], [address] Platelets (Bld) [#/Vol] 227 10*3/uL Normal 150-450 [facility] Comment on above: Performed By: #### L 100.0100 ####[facility] [address] [place], [address] RBC (Bld) [#/Vol] 4.49 10*6/uL Normal 4.2-5.4 [facility] Comment on above: Performed By: #### L 100.0100 ####[facility] [address] [place], [address] RDW SD 38.6 fl Normal 35.1-43.9 [facility] Comment on above: Performed By: #### L 100.0100 ####[facility] [address] [place], [place], [address] WBC (Bld) [#/Vol] 9.7 10*3/uL Normal 4.4-11.0 [facility] Comment on above: Performed By: #### L 100.0100 ####[facility] [address] [place], [address] Emergency Department Summary on 07-20-2024 Emergency Department Summary Normal [facility] ,Urineon 07-20-2024 Beta HCG ( test) Ql (U) Negative Normal [facility] Comment on above: Result Comment: Very dilute urine specimens, as indicated by a low specificgravity, may not contain claims customer service representative levels of hCG.If is still suspected, a first morning urinespecimen should be collected 48 hours later and tested. Performed By: #### L 400.8800 ####[facility] [address] [place], [place], [address] Transvaginal Non-on 07-20-2024 Transvaginal Non- Normal [facility] CRPon 07-19-2024 C-REACTIVE PROT 4.03 mg/L High 0.0-3.0 [facility] Comment on above: Performed By: #### L 501.6710, L505.7010, L101.9900, [id number] ####[facility] [address] [place], [address] Erythrocyte Sed Rateon 07-19 SED RATE 5 mm/hr Normal 0-30 [facility] Comment on above: Performed By: #### L 501.6710, L505.7010, L101.9900, L4600.0100 ####[facility] [address] [place], [address] Rheumatoid Factoron 07-20-19 25 RHEUMATOID FAC < 10.0 Normal <15 [facility] Comment on above: Performed By: #### L 501.6710, L505.7010, L101.9900, L4600.0100 ####[facility] [address] [place], [address] [facility] Office Visit Reporton 07-13-2024 [facility] Office Visit Report Normal [facility] HEPATITIS B SURFACE ANTIBODY on 06-16-2024 Hep Bs Antibody, QN >1000.00 Invalid Interpretation Code [facility] Comment on above: Order Comment: Relea se to patient->Automatic Result Comment: Veri fied By: [id number] Hepatitis Bs Antibody Positive Abnormal Negative Ak[facility] on [facility] Comment on above: Order Comment: Relea se to patient->Automatic Result Comment: Refe rence value: Unvaccinated: Negative Vaccinated: Positive Anti-HBs concentration detected at > or = 11.5 mIU/mL. Individual is considered to be immune to infection with HBV. Verified By: [id number] Hepatitis B Surface Antibody Ordered By: Background Lab on 06-16-2024 HBV surface Ab Ql (S) Positive Abnormal Negative Akr [facility] Comment on above: Reference value: Unv accinated: Negative Vaccinated: Positive Anti-HBs concentration detected at > or = 11.5 mIU/mL. Individual is considered to be immune to infection with HBV. Verified By: [id number] Hep Bs Antibody, QN mIU/mL [facility] Comment on above: Verified By: [id number] Interpretation and review of laboratory results Abnormal [facility] MR/BMS.BPon 06-16-2024 MR/BMS.BP Normal [facility] QUANTIFERON TB GOLDon 2024 Mitogen minus NIL >9.98 Invalid Interpretation Code [facility] Comment on above: Order Comment: [...] repeated on a new specimen. Testing Performed: [place] [address] Release to patient->Automatic Quantiferon TB Gold Negative Invalid Interpretation Code Negative [facility] Comment on above: Order Comment: [...] repeated on a new specimen. Testing Performed: [address] [address] Release to patient->Automatic TB1 minus NIL 0.00 IU/mL Invalid Interpretation Code -0.50-0.34 [facility] Comment on above: Order Comment: [...] repeated on a new specimen. Testing Performed: [address] [address] Release to patient->Automatic TB2 minus NIL 0.00 IU/mL Invalid Interpretation Code -0.50-0.34 [facility] Comment on above: Order Comment: [...] repeated on a new specimen. Testing Performed: [address] [address] Release to patient->Automatic Gastroenterology Visit Repor ton 06-15-2024 Gastroenterology Visit Report Normal [facility] Urgent Care Visit Reporton 0 05-31-2024 Urgent Care Visit Report Normal [facility] Bedside Glucoseon 05-25-2024 FINGERSTICK GLU 78 mg/dL Normal 74-106 [facility] Comment on above: Result Comment: KAREL YARBROUGH OF PATIENT CARE PER NURSING PROTOCOL Performed By: #### L 501.080 ####[facility] [address] [place], [address] Colonoscopy Reporton 025 Colonoscopy Report Normal [facility] EGD Reporton 05-25-2024 EGD Report Normal [facility] H Pylori (initial)on 025 H Pylori (initial) Normal [facility] Comment on above: Performed By: #### P H.PYLORI ####[facility] [address] [place], [address] MR/POSTOP.ANEon 05-25-2024 MR/POSTOP.ANE Normal [facility] MR/RBODNWAZ6pj 05-25-2024 MR/POSTOPAN2 [facility] ,Urineon 05-25-2024 Beta HCG ( test) Ql (U) Negative [facility] Comment on above: Result Comment: Very dilute urine specimens, as indicated by a low specificgravity, may not contain claims customer service representative levels of hCG.If is still suspected, a first morning urinespecimen should be collected 48 hours later and tested. Performed By: #### L 400.7605 ####[facility] [address] [place], [address] [employer] Ion 05-02 Special Stain [employer] I Normal [facility] Comment on above: Performed By: #### P SSI ####[facility] [address] [place], [address] Gastroenterology Visit Repor [facility] 03-10-2024 Gastroenterology Visit Report Normal [facility] Final Surgical Pathology Rep [facility] 03-08-2024 Final Surgical Pathology Report . Pathology Reports Accession: Collected Date/Time: Received Date/Time: Pathologist: [id number] 03/03/2024 16:57 EST 03/05/2024 08:49 MASSIMO HERMOSILLO MD Final Surgical Pathology Report DIAGNOSIS: ENDOMETRIAL BIOPSY: - SECRETORY ENDOMETRIUM - NEGATIVE FOR HYPERPLASIA OR MALIGNANCY COMMENT: [facility] [id number] CLINICAL INFORMATION: MENORRHAGIA WITH REGULAR CYCLE SPECIMEN: A ENDOMETRIUM GROSS DESCRIPTION: All parts labelled with patient name and [id number] Received in formalin labeled undesignated are multiple girard-pink and hemorrhagic tissue fragments aggregating to 0.1 x 0.7 x 0.3 cm. Smallest fragments may not survive processing. TS-1 Gladis Presley, Grossing Desktop Publishing Specialist/ Dr. Neo Zaragoza, Pathologist Performed by Gladis Presley MICROSCOPIC DESCRIPTION: The microscopic examination is performed, except in the case of Gross Only. Electronically Signed by Pathology Report verified by [facility] MASSIMO SALGUERO Sign out Date: 03/08/2024 10:10 Performing Lab: [facility], [address] [place] [address] Pathology Dept Disclaimer If ancillary studies were utilized, the following Laboratory Developed Test (LDT) disclaimer will apply: Under CLIA requirements, [facility] is qualified to perform high complexity testing. For all ancillary stains, positive and negative controls stain appropriately. Performance characteristics of immunohistochemical and chromogenic in-situ hybridization tests have been determined by [facility]. These tests are used for clinical purposes, They should not be regarded as investigational or for research. Normal [facility] Absolute lymphocyte counton 01-06-2022 Lymphocytes Auto (Unsp spec) [#/Vol] 3.59 10*3/uL 0.83-4.51 [facility] Work Phone: Basophil percentageon 2021 Basophils/100 WBC (Bld) 0.5 % 0-1 [facility] Work Phone: Chloride [Moles/Vol] 104 mmol/L 98-107 [facility] Work Phone: Eosinophils/100 WBC (Bld) 3.1 % 0-5 [facility] Work Phone: Glucose [Mass/Vol] 92 mg/dL 74-106 [facility] Work Phone: Neutrophils (Bld) [#/Vol] 5.0 10*3/uL 2.0-7.7 [facility] Work Phone: Neutrophils/100 WBC (Bld) 52.8 % 47-70 [facility] Work Phone: Potassium [Moles/Vol] 3.9 mmol/L 3.5-5.1 [facility] Work Phone: Sodium [Moles/Vol] 137 mmol/L 136-145 [facility] Work Phone: WBC (Bld) [#/Vol] 9.5 10*3/uL 4.4-11.0 [facility] Work Phone: Beta hCG serum qualon 2021 Beta HCG ( test) Ql Negative [facility] Work Phone: Blood erythrocytes count (nu mber/volume)on 01-06-2022 RBC (Bld) [#/Vol] 4.89 10*6/uL 4.2-5.4 [facility] Work Phone: Blood hemoglobin measurement (mass/volume)on 01-06-2022 Hemoglobin (Bld) [Mass/Vol] 14.7 g/dL 12.0-15.0 [facility] Work Phone: Blood lymphocytes/100 leukoc yteson 01-06-2022 Lymphocytes/100 WBC (Bld) 37.8 % 19-41 [facility] Work Phone: Blood monocytes/100 leukocyt eson 01-06-2022 Monocytes/100 WBC (Bld) 5.5 % 0-10 [facility] Work Phone: Blood platelet mean volumeon 01-06-2022 Platelet mean volume (Bld) [Entitic vol] 11.4 fL 6.2-12.0 [facility] Work Phone: Determination of erythrocyte mean corpuscular volume (MCV)on 01-06-2022 MCV (RBC) [Entitic vol] 91.6 fL 81-99 [facility] Work Phone: Hematocrit Auto (Bld) [Volum e fraction]on 01-06-2022 Hematocrit (Bld) [Volume fraction] 44.8 % 37-47 [facility] Work Phone: Laboratory - Chemistry and C hemistry - challengeon 01-06-2022 CO2 [Moles/Vol] 25.0 mmol/L 21.0-32.0 [facility] Work Phone: Urea nitrogen/Creatinine [Mass ratio] 19.7 mg/mg 10-20 [facility] Work Phone: Laboratory - Drug toxicology on 01-06-2022 Amphetamines Ql (U) Negative <1000 ng/mL [facility] Work Phone: Benzodiazepines Ql (U) Negative < 200 ng/mL [facility] Work Phone: Cannabinoids Screen Ql (U) Negative < 50 ng/mL [facility] Work Phone: Cocaine Ql (U) Negative < 300 ng/mL [facility] Work Phone: Opiates Ql (U) Negative < 300 ng/mL [facility] Work Phone: Laboratory - Hematology and Cell countson 01-06-2022 Erythrocyte distribution width (RBC) [Entitic vol] 40.2 fL 35.1-43.9 [facility] Work Phone: Erythrocyte distribution width (RBC) [Ratio] 12.0 % 11.6-14.6 [facility] Work Phone: Immature granulocytes/100 WBC (Bld) 0.300 % 0.0-0.9 [facility] Work Phone: Comment on above: IG% - Immature Granu locytes (promyelocytes, myelocytes and metamyelocytes) > 1% indicates that a LEFT SHIFT is Present. MCH (RBC) [Entitic mass] 30.1 pg 27.0-32.0 [facility] Work Phone: Nucleated RBC/100 WBC (Bld) [Ratio] 0 % 0-5 [facility] Work Phone: MCHC Auto (RBC) [Mass/Vol]on 01-06-2022 MCHC (RBC) [Mass/Vol] 32.8 g/dL 32-36 [facility] Work Phone: No Panel Informationon 01-06 Estimated Creatinine Clearance Calc 99.80 ml/min [facility] Work Phone: Estimated GFR (MDRD) Amer 129 mL/min >60 [facility] Work Phone: Comment on above: GFR Calc Estimated GFR (MDRD) Non-Af Amer 107 mL/min >60 [facility] Work Phone: Comment on above: Non- GFR Calc Ethyl Alcohol Level 7.0 mg/dL [facility] Work Phone: Comment on above: The serum:whole bloo d ethanol ratio is approximately 1.14and varies slightly with hematocrit. Medical Alcohol reference interval and critical value innon-tolerant individuals; 50 - 100 Impairment 100 Intoxication 100 - 250 Severe Poisoning 250 - 400 Deep/possible fatal coma MDMA (Ecstasy) Screen Negative < 500 ng/mL [facility] Work Phone: Urine Barbiturates Screen Negative < 200 ng/mL [facility] Work Phone: Urine Drug Screen Comment [facility] Work Phone: Comment on above: CONFIRMATORY TESTING [...] Methadone Screen Negative < 300 ng/mL [facility] Work Phone: Platelets bldon 01-06-2022 Platelets (Bld) [#/Vol] 187 10*3/uL 150-450 [facility] Work Phone: Serum or plasma calcium archana urement (mass/volume)on 10-09-2022 Calcium [Mass/Vol] 9.8 mg/dL 8.5-10.1 [facility] Work Phone: Serum or plasma creatinine m easurement (mass/volume)on 01-06-2022 Creatinine [Mass/Vol] 0.66 mg/dL 0.55-1.02 [facility] Work Phone: Comment on above: The validity of the calculated GFR & GFRAA in patients over 70 years has not been determined. Clinical correlation is essential. Serum or plasma urea nitroge n measurement (mass/volume)on 01-06-2022 Urea nitrogen [Mass/Vol] 13 mg/dL 7-18 [facility] Work Phone: Thin prep Papanicolaou smear with manual screeningon 01-06-2022 Thin prep Papanicolaou smear with manual screening 8 5-15 [facility] Work Phone: Urine phencyclidine (PCP) de tectionon 01-06-2022 Phencyclidine Ql (U) Negative < 25 ng/mL [facility] Work Phone: Absolute lymphocyte counton 11-23-2021 Lymphocytes Auto (Unsp spec) [#/Vol] 2.81 10*3/uL 0.83-4.51 [facility] Work Phone: Absolute reticulocyte counto n 11-23-2021 Reticulocytes (Bld) [#/Vol] 0.00 10*3/uL 0-5 [facility] Work Phone: Basophil percentageon 2021 Basophil percentage 3.0 mg/dL 2.5-4.9 [facility] Work Phone: Bilirubin [Mass/Vol] 0.70 mg/dL 0.20-1.00 [facility] Work Phone: Comment on above: For patients on eltr ombopag therapy, use of Dimension Killen TBIL is not recommended. Chloride [Moles/Vol] 105 mmol/L 98-107 [facility] Work Phone: Cholesterol [Mass/Vol] 240 mg/dL <200 [facility] Work Phone: Comment on above: <200 mg/dL Desirable 200-240 mg/dL Borderline >240 mg/dL High Risk Glucose [Mass/Vol] 88 mg/dL 74-106 [facility] Work Phone: Neutrophils (Bld) [#/Vol] 4.4 10*3/uL 2.0-7.7 [facility] Work Phone: Potassium [Moles/Vol] 4.1 mmol/L 3.5-5.1 [facility] Work Phone: [phone] Protein [Mass/Vol] 8.0 g/dL 6.4-8.2 [facility] Work Phone: Sodium [Moles/Vol] 136 mmol/L 136-145 [facility] Work Phone: Triglyceride [Mass/Vol] 136 mg/dL <199 [facility] Work Phone: Comment on above: The drugs N-Acetylcy steine and Metamizole may falsely depress this assay.Serum Triglycerides Reference Interval Normal <150 mg/dL Borderline high 150 - 199 mg/dL High 200 - 499 mg/dL Very High > or = 500 mg/dL WBC (Bld) [#/Vol] 8.0 10*3/uL 4.4-11.0 [facility] Work Phone: Bilirubin Test strip Ql (U)o n 11-23-2021 Bilirubin Ql (U) Negative Negative [facility] Work Phone: Blood erythrocytes count (nu mber/volume)on 11-23-2021 RBC (Bld) [#/Vol] 4.83 10*6/uL 4.2-5.4 [facility] Work Phone: Blood hemoglobin measurement (mass/volume)on 11-23-2021 Hemoglobin (Bld) [Mass/Vol] 14.6 g/dL 12.0-15.0 [facility] Work Phone: Blood platelet mean volumeon 11-23-2021 Platelet mean volume (Bld) [Entitic vol] 11.4 fL 6.2-12.0 [facility] Work Phone: Determination of erythrocyte mean corpuscular volume (MCV)on 11-23-2021 MCV (RBC) [Entitic vol] 90.3 fL 81-99 [facility] Work Phone: Direct bilirubinon Bilirubin.direct [Mass/Vol] 0.11 mg/dL 0.00-0.30 [facility] Work Phone: [phone] Hematocrit Auto (Bld) [Volum e fraction]on 11-23-2021 Hematocrit (Bld) [Volume fraction] 43.6 % 37-47 [facility] Work Phone: [phone] Ketones Test strip Ql (U)on 11-23-2021 Ketones Ql (U) Negative Negative [facility] Work Phone: Laboratory - Chemistry and C hemistry - challengeon 11-23-2021 ALP [Catalytic activity/Vol] 57 U/L 45-117 [facility] Work Phone: [phone] ALT [Catalytic activity/Vol] 56 U/L 13-56 [facility] Work Phone: Cholesterol.total/Tatianna sterol in HDL [Mass ratio] 4.60 {ratio} [facility] Work Phone: [phone] CO2 [Moles/Vol] 25.0 mmol/L 21.0-32.0 [facility] Work Phone: [phone] Globulin (S) [Mass/Vol] 3.7 g/dL 2.2-4.2 [facility] Work Phone: [phone] Urea nitrogen/Creatinine [Mass ratio] 25.0 mg/mg 10-20 [facility] Work Phone: [phone] Laboratory - Hematology and Cell countson 11-23-2021 Erythrocyte distribution width (RBC) [Entitic vol] 40.6 fL 35.1-43.9 [facility] Work Phone: [phone] Erythrocyte distribution width (RBC) [Ratio] 12.3 % 11.6-14.6 [facility] Work Phone: MCH (RBC) [Entitic mass] 30.2 pg 27.0-32.0 [facility] Work Phone: Nucleated RBC/100 WBC (Bld) [Ratio] 0 % 0-5 [facility] Work Phone: MCHC Auto (RBC) [Mass/Vol]on 11-23-2021 MCHC (RBC) [Mass/Vol] 33.5 g/dL 32-36 [facility] Work Phone: Nitrite Test strip Ql (U)on 11-23-2021 Nitrite Ql (U) Negative Negative [facility] Work Phone: No Panel Informationon 11-23 Estimated GFR (MDRD) Amer 134 mL/min >60 [facility] Work Phone: Comment on above: GFR Calc Estimated GFR (MDRD) Non-Af Amer 110 mL/min >60 [facility] Work Phone: Comment on above: Non- GFR Calc Platelets bldon 11-23-2021 Platelets (Bld) [#/Vol] 253 10*3/uL 150-450 [facility] Work Phone: Protein Test strip Ql (U)on 11-23-2021 Protein Ql (U) Negative Negative [facility] Work Phone: Segmented neutrophils/100 WB C Auto (Bld)on 11-23-2021 Segmented neutrophils/100 WBC (Bld) 55.3 % 47-70 [facility] Work Phone: Serum or plasma albumin archana urement (mass/volume)on 11-23-2021 Albumin [Mass/Vol] 4.3 g/dL 3.2-5.0 [facility] Work Phone: [phone] Serum or plasma albumin/glob ulin mass ratioon 11-23-2021 Albumin/Globulin [Mass ratio] 1.2 {ratio} 0.9-2.4 [facility] Work Phone: Serum or plasma calcium archana urement (mass/volume)on 11-23-2021 Calcium [Mass/Vol] 9.3 mg/dL 8.5-10.1 [facility] Work Phone: Serum or plasma cholesterol in HDL measurement (mass/volume)on 11-23-2021 Cholesterol in HDL [Mass/Vol] 52 mg/dL >40 [facility] Work Phone: Comment on above: The drugs N-Acetylcy steine and Metamizole may falsely depress this assay. Reference Range HDL <40 mg/dL Low HDL Cholesterol HDL >or= 60 mg/dL High HDL Cholesterol Serum or plasma cholesterol in VLDL measurement (mass/volume)on 11-23-2021 Cholesterol in VLDL [Mass/Vol] 27 mg/dL 5-40 [facility] Work Phone: Serum or plasma creatinine m easurement (mass/volume)on 11-23-2021 Creatinine [Mass/Vol] 0.64 mg/dL 0.55-1.02 [facility] Work Phone: Comment on above: The validity of the calculated GFR & GFRAA in patients over 70 years has not been determined. Clinical correlation is essential. Serum or plasma low density lipoprotein (LDL) cholesterol measurement (mass/volume)on 11-23-2021 Cholesterol in LDL [Mass/Vol] 161 mg/dL 0-130 [facility] Work Phone: Serum or plasma urea nitroge n measurement (mass/volume)on 11-23-2021 Urea nitrogen [Mass/Vol] 16 mg/dL 7-18 [facility] Work Phone: Serum or plasma uric acid me asurement (mass/volume)on 11-23-2021 Urate [Mass/Vol] 6.2 mg/dL 2.6-6.0 [facility] Work Phone: Comment on above: The drugs N-Acetylcy steine and Metamizole may falsely depress this assay. Thin prep Papanicolaou smear with manual screeningon 11-23-2021 Thin prep Papanicolaou smear with manual screening 30 U/L 15-37 [facility] Work Phone: Thin prep Papanicolaou smear with manual screening 6 5-15 [facility] Work Phone: Thin prep Papanicolaou smear with manual screening 186 U/L 84-246 [facility] Work Phone: Urine blood detectionon - RBC Ql (U) 250 /ul Negative [facility] Work Phone: Urine clarityon 11-23-2021 Clarity (U) Clear Clear [facility] Work Phone: Urine color determinationon 11-23-2021 Color (U) Yellow Yellow [facility] Work Phone: Urine glucose detectionon Glucose Ql (U) Normal mg/dl Normal [facility] Work Phone: Urine leukocyte esterase det ection by dipstickon 11-23-2021 Leukocyte esterase Test strip Ql (U) 25 /ul Negative [facility] Work Phone: Urine pHon 11-23-2021 pH (U) 5.0 [pH] 5.0 - 8.0 [facility] Work Phone: Urine specific gravity measu rementon 11-23-2021 Specific gravity (U) [Rel density] 1.020 1.002-1.030 [facility] Work Phone: Urobilinogen Auto test strip Ql (U)on 11-23-2021 Urobilinogen Ql (U) Normal mg/dl Normal [facility] Work Phone: Laboratory - Microbiology an d Antimicrobial susceptibilityon 11-13-2021 SARS-CoV-2 (COVID-19) RNA JO ANN+probe Ql (Unsp spec) Negative Not Detect [facility] Work Phone: Comment on above: Normal Reference Ran ge: Not DetectedMethod:(RT-PCR) real-time reverse transcriptase PCRLuminex ALL Instrument*The Food and Drug Administration (FDA) has issued an Emergency Use Authorization (EAU) for the ALL SARS-CoV-2 Assay for the rapid detection of the virus that causes COVID-19. This test has been validated, but the [facility] independent review of this validation is pending.*Negative [...] percentageon 2021 Basophil percentage Not Reportable [facility] Work Phone: Erythrocyte sedimentation ra paul 11-06-2021 ESR (Bld) [Velocity] 10 mm/h 0-30 [facility] Work Phone: Laboratory - Chemistry and C hemistry - challengeon 11-06-2021 Free T4 [Mass/Vol] 0.72 ng/dL 0.76-1.46 [facility] Work Phone: No Panel Informationon 11-06 Anti-Nuclear Antibody Screen Negative Negative [facility] Work Phone: Comment on above: Performed at: [place] [id number] Director: Dany White PhD, Phone: [phone] Centromere B Antibody Not Reportable [facility] Work Phone: CH[employer] Antibody Not Reportable [facility] Work Phone: Thyroid Stimulating Hormone (TSH) 1.62 uIU/mL 0.358-3.74 [facility] Work Phone: Serum DNA double strand anti body assay (units/volume)on 11-06-2021 DNA double strand Ab Qn (S) Not Reportable [facility] Work Phone: Serum Nasima-1 antibody assay (u nits/volume)on 11-06-2021 Nasima-1 extractable nuclear Ab Qn (S) Not Reportable [facility] Work Phone: Serum Scl-70 extractable nuc lear antibody assay (units/volume)on 11-06-2021 SCL-70 extractable nuclear Ab Qn (S) Not Reportable [facility] Work Phone: Serum Galdamez extractable nucl ear antibody detectionon 11-06-2021 Galdamez extractable nuclear Ab Ql (S) Not Reportable [facility] Work Phone: Serum cyclic citrullinated p eptide IgG antibody assay (units/volume)on 11-06-2021 Cyclic citrullinated peptide IgG Qn 4 units 0-19 [facility] Work Phone: Comment on above: Negative <20 Weak po sitive 20 - 39 Moderate positive 40 - 59 Strong positive >59Performed at: [facility] [id number] Director: Jacinto Shea MD, Phone: [phone] Serum or plasma C reactive p rotein measurement (mass/volume)on 11-06-2021 CRP [Mass/Vol] mg/L 0.0-3.0 [facility] Work Phone: Comment on above: C-Reactive Protein ( CRP) provides useful information for thediagnosis, therapy and monitoring of inflammatory processesand associated diseases. For the evaluation of Relative Riskfor Cardiovascular Disease, a High Sensitivity CRP (HSCRP)should be ordered. Serum rheumatoid factor dete ctionon 11-06-2021 Rheumatoid factor Ql (S) < 10.0 IU/mL <15 [facility] Work Phone: No Panel Informationon 10-04 POC SARS CoV-2 Antigen Negative [facility] Work Phone: Basophil percentageon 2021 Bilirubin [Mass/Vol] 0.60 mg/dL 0.20-1.00 [facility] Work Phone: Comment on above: For patients on eltr ombopag therapy, use of Dimension Killen TBIL is not recommended. Protein [Mass/Vol] 8.0 g/dL 6.4-8.2 [facility] Work Phone: WBC (Bld) [#/Vol] 7.5 10*3/uL 4.4-11.0 [facility] Work Phone: Blood erythrocytes count (nu mber/volume)on 08-02-2021 RBC (Bld) [#/Vol] 4.87 10*6/uL 4.2-5.4 [facility] Work Phone: [phone] Blood hemoglobin measurement (mass/volume)on 08-02-2021 Hemoglobin (Bld) [Mass/Vol] 14.7 g/dL 12.0-15.0 [facility] Work Phone: Blood platelet mean volumeon 08-02-2021 Platelet mean volume (Bld) [Entitic vol] 10.6 fL 6.2-12.0 [facility] Work Phone: [phone] Determination of erythrocyte mean corpuscular volume (MCV)on 08-02-2021 MCV (RBC) [Entitic vol] 86.7 fL 81-99 [facility] Work Phone: [phone] Direct bilirubinon Bilirubin.direct [Mass/Vol] 0.17 mg/dL 0.00-0.30 [facility] Work Phone: [phone] Hematocrit Auto (Bld) [Volum e fraction]on 08-02-2021 Hematocrit (Bld) [Volume fraction] 42.2 % 37-47 [facility] Work Phone: [phone] INR in Blood by Coagulation assayon 08-02-2021 INR Coag (Bld) [Relative time] 1.1 {INR} [facility] Work Phone: [phone] Laboratory - Chemistry and C hemistry - challengeon 08-02-2021 ALP [Catalytic activity/Vol] 55 U/L 45-117 [facility] Work Phone: ALT [Catalytic activity/Vol] 42 U/L 13-56 [facility] Work Phone: [phone] Globulin (S) [Mass/Vol] 3.6 g/dL 2.2-4.2 [facility] Work Phone: [phone] Laboratory - Coagulationon 0 08-02-2021 aPTT Coag (Bld) [Time] 34.3 s 24.1-36.2 [facility] Work Phone: [phone] PT Coag (PPP) [Time] 13.4 s 11.7-14.9 [facility] Work Phone: Laboratory - Hematology and Cell countson 08-02-2021 Erythrocyte distribution width (RBC) [Entitic vol] 38.4 fL 35.1-43.9 [facility] Work Phone: Erythrocyte distribution width (RBC) [Ratio] 12.2 % 11.6-14.6 [facility] Work Phone: MCH (RBC) [Entitic mass] 30.2 pg 27.0-32.0 [facility] Work Phone: MCHC Auto (RBC) [Mass/Vol]on 08-02-2021 MCHC (RBC) [Mass/Vol] 34.8 g/dL 32-36 [facility] Work Phone: Platelets bldon 08-02-2021 Platelets (Bld) [#/Vol] 163 10*3/uL 150-450 [facility] Work Phone: Serum or plasma albumin archana urement (mass/volume)on 08-02-2021 Albumin [Mass/Vol] 4.4 g/dL 3.2-5.0 [facility] Work Phone: Thin prep Papanicolaou smear with manual screeningon 08-02-2021 Thin prep Papanicolaou smear with manual screening 22 U/L 15-37 [facility] Work Phone: Serum or plasma cortisol zak surement (mass/volume)on 07-28-2021 Cortisol [Mass/Vol] 23.80 ug/dL 3.44-22.45 [facility] Work Phone: Comment on above: Adult (AM) 5.27 - 22 .45 ug/dL Adult (PM) 3.44 - 16.76 ug/dLPlease note revised CORTISOL reference range effective 2019. Laboratory - Chemistry and C hemistry - challengeon 07-25-2021 Free T4 [Mass/Vol] 0.76 ng/dL 0.76-1.46 [facility] Work Phone: No Panel Informationon 07-25 Dehydroepiandrosterone Sulfate 118.0 ug/dL 57.3-279.2 [facility] Work Phone: Free Triiodothyronine (T3) pg/dL 2.8 pg/mL 2.18-3.98 [facility] Work Phone: Reverse Triiodothyronine (T3) 12.6 ng/dL 9.2-24.1 [facility] Work Phone: Comment on above: This test was develo ped and its performance characteristicsdetermined by [facility]. It has not been cleared orapproved by the Food and Drug Administration.Performed at: [facility] [address] [id number] Director: Dany White PhD, Phone: [phone] at: [facility] [employer] [id number] Director: Jacinto Shea MD, Phone: [phone] Thyroid Stimulating Hormone (TSH) 1.29 uIU/mL 0.358-3.74 [facility] Work Phone: Total Triiodothyronine 1.10 ng/mL 0.6-1.81 [facility] Work Phone: Serum or plasma cortisol zak surement (mass/volume)on 07-25-2021 Cortisol [Mass/Vol] 2.80 ug/dL 3.44-22.45 [facility] Work Phone: Comment on above: Adult (AM) 5.27 - 22 .45 ug/dL Adult (PM) 3.44 - 16.76 ug/dLPlease note revised CORTISOL reference range effective 2019. Laboratory - Microbiology an d Antimicrobial susceptibilityon 03-26-2021 SARS-CoV-2 (COVID-19) RNA JO ANN+probe Ql (Unsp spec) Detected Not Detect [facility] Work Phone: Comment on above: Normal Reference [...] Date Time Vital Sign Value Performing Clinician Lizzi shanda 01-06-2022 13:46-0400 Body height 162.[address] Librado Ybarra Work Phone: [facility] Work Phone: 01-06-2022 13:46-0400 Body mass index (BMI) [Ratio] 37.4 kg/m2 Dr. Librado Ybarra Work Phone: [facility] Work Phone: 01-06-2022 13:46-0400 Body temperature 97.6 [degF] Dr. Librado Ybarra Work Phone: [facility] Work Phone: 01-06-2022 13:46-0400 Body weight [address] Librado Ybarra Work Phone: [facility] Work Phone: 01-06-2022 13:46-0400 Diastolic blood pressure 109 mm[Hg] Dr. Librado Ybarra Work Phone: [facility] Work Phone: 01-06-2022 13:46-0400 Heart rate 76 /min Dr. Librado Ybarra Work Phone: [facility] Work Phone: 01-06-2022 13:46-0400 Respiratory rate 18 /min Dr. Librado Ybarra Work Phone: [facility] Work Phone: 01-06-2022 13:46-0400 SaO2% (BldA) [Mass fraction] 99 % Dr. Librado Ybarra Work Phone: [facility] Work Phone: 01-06-2022 13:46-0400 Systolic blood pressure 159 mm[Hg] Dr. Librado Ybarra Work Phone: [facility] Work Phone: 10-04-2021 17:24-0400 Body temperature 98.8 [degF] Dr. Librado Ybarra Work Phone: [facility] Work Phone: 10-04-2021 17:24-0400 Diastolic blood pressure 78 mm[Hg] Dr. Librado Ybarra Work Phone: [facility] Work Phone: 10-04-2021 17:24-0400 Heart rate 78 /min Dr. Librado Ybarra Work Phone: [facility] Work Phone: 10-04-2021 17:24-0400 Respiratory rate 14 /min Dr. Librado Ybarra Work Phone: [facility] Work Phone: 10-04-2021 17:24-0400 Systolic blood pressure 120 mm[Hg] Dr. Librado Ybarra Work Phone: [facility] Work Phone: 06-17-2021 10:12-0400 Respiratory rate 16 /min [facility] Work Phone: 06-17-2021 08:31-0400 Body height 162.56 cm [facility] Work Phone: 06-17-2021 08:31-0400 Body mass index (BMI) [Ratio] 35.5 kg/m2 [facility] Work Phone: 06-17-2021 08:31-0400 Body temperature 97.2 [degF] [facility] Work Phone: 06-17-2021 08:31-0400 Body weight 94 kg [facility] Work Phone: 06-17-2021 08:31-0400 Diastolic blood pressure 63 mm[Hg] [facility] Work Phone: 06-17-2021 08:31-0400 Heart rate 82 /min [facility] Work Phone: 06-17-2021 08:31-0400 SaO2% (BldA) [Mass fraction] 95 % [facility] Work Phone: 06-17-2021 08:31-0400 Systolic blood pressure 132 mm[Hg] [facility] Work Phone: 03-30-2021 12:45-0500 Body temperature 99 [degF] [facility] Work Phone: 03-30-2021 12:45-0500 Diastolic blood pressure 84 mm[Hg] [facility] Work Phone: 03-30-2021 12:45-0500 Heart rate 73 /min [facility] Work Phone: 03-30-2021 12:45-0500 Respiratory rate 16 /min [facility] Work Phone: 03-30-2021 12:45-0500 SaO2% (BldA) [Mass fraction] 99 % [facility] Work Phone: 03-30-2021 12:45-0500 Systolic blood pressure 129 mm[Hg] [facility] Work Phone: 03-30-2021 11:16-0500 Body mass index (BMI) [Ratio] 36 kg/m2 [facility] Work Phone: 03-30-2021 11:38-2512 Body weight 95.25 kg [facility] Work Phone: Encounters Encounter Date Encounter Type Care Provider Facility Start: 02-03-2025 End: 02-03-2025 ambulatory Librado Ybarra [facility] Start: 01-31-2025 Encounter for other preprocedural examination Monymarkell Vidalesemelyn [facility] Start: 01-31-2025 ambulatory Librado Ybarra [facility]: [facility] Start: 01-28-2025 ambulatory Mony Olson [facility]ity[facility] Start: 01-28-2025 End: 02-02-2025 Evaluation and management of inpatient Ivelisse Vazquez Facility:[facility] Start: 01-27-2025 End: 01-27-2025 ambulatory [facility] Facility:[facility] Start: 01-27-2025 End: 01-27-2025 ambulatory [facility] Facility:[facility] Start: 01-25-2025 End: 01-25-2025 ambulatory [facility] Facility:[facility] Start: 01-21-2025 End: 01-21-2025 ambulatory Librado Tate Facility:[facility] Start: 01-18-2025 ambulatory Librado Tate Facility: [facility] Start: 01-18-2025 End: 01-18-2025 ambulatory [facility] Facility:[facility] Start: 01-17-2025 ambulatory Librado Tate [facility] Start: 12-21-2024 End: 12-21-2024 ambulatory Librado Tate [facility] Start: 12-21-2024 End: 12-21-2024 ambulatory Librado Tate Facility:[facility] Start: 12-06-2024 ambulatory Librado Tate [facility]: [facility] Start: 10-22-2024 End: 10-22-2024 ambulatory Librado Tate [facility] Start: 10-05-2024 End: 10-05-2024 ambulatory Librado Tate [facility] Start: 10-05-2024 End: 10-05-2024 ambulatory Librado Tate Facility:[facility] Start: 09-30-2024 End: 09-30-2024 ambulatory Librado Tate Facility:[facility] Start: 09-29-2024 End: 09-29-2024 ambulatory [facility] Facility:[facility] Start: 08-31-2024 End: 08-31-2024 ambulatory [facility] Facility:[facility] Start: 08-10-2024 End: 08-10-2024 ambulatory [facility] Facility:[facility] Start: 07-20-2024 End: 07-20-2024 Emergency department patient visit [facility] Facility:[facility] Start: 07-19-2024 End: 07-19-2024 ambulatory [facility] Facility:[facility] Start: 07-13-2024 End: 07-13-2024 ambulatory [facility] Start: 06-16-2024 End: 06-16-2024 ambulatory MELISSAKARNA TOLLIVER [facility] Start: 06-16-2024 End: 06-16-2024 Subsequent hospital visit by physician Melissa Tolliver [employer] Work Phone: [facility] Comment on above: Pre-employment healt h screening examination (Primary Dx) Start: 06-16-2024 End: 06-16-2024 ambulatory Librado WolffTate [facility] Start: 06-15-2024 End: 06-15-2024 ambulatory Librado WolffTate [facility] Start: 06-09-2024 ambulatory [facility] Start: 06-03-2024 ambulatory [facility] Start: 05-31-2024 End: 05-31-2024 ambulatory [facility] Start: 05-28-2024 ambulatory [facility] Start: 05-28-2024 Encounter for other preprocedural examination [facility] Start: 05-25-2024 End: 05-25-2024 ambulatory [facility] Facility:[facility] Start: 05-11-2024 ambulatory Raphael Kidd [facility] Start: 03-10-2024 End: 03-10-2024 ambulatory [facility] Start: 03-04-2024 End: 03-04-[address] [facility] Start: 01-06-2022 End: 01-06-2022 Emergency department patient visit Dr. Librado Ybarra Work Phone: [facility] Start: 01-03-2022 End: 01-03-[address] Librado Ybarra Work Phone: [facility] Work Phone: Start: 01-03-2022 End: 01-03-[address] Librado Ybarra Work Phone: [facility] [place] Start: 11-23-[address] Librado kenyon Work Phone: [facility] Start: 11-13-[address] Librado kenyon Work Phone: [facility] Start: 11-06-2021 End: 11-06-[address] Librado Ybarra Work Phone: [facility] Start: 10-04-2021 End: 10-04-[address] 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 Off Start: 06-30-2021 End: 06-30-2021 Patient encounter procedure [facility] Start: 06-17-2021 End: 06-17-2021 Emergency department patient visit [facility] Start: 05-23-2021 End: 05-23-2021 Patient encounter procedure [facility], Specimen Start: 03-30-2021 End: 03-30-2021 Patient encounter procedure [facility] 3 Outp Start: 03-26-2021 Patient encounter procedure [facility], Specimen Procedures Date Procedure Procedure Detail Performing Clinician Start: 06-16-2024 Hepatitis b surf ant ibody hbsab Melissa Tolliver [employer] Work Phone: Start: 01-03-2022 Radiologic examinati on of knee Dr. Librado Ybarra Work Phone: Start: 06-30-2021 US scan of thyroid Start: 06-17-2021 X-ray of cervical spine Start: 06-17-2021 Plain X-ray of clavicle Viral antigen assay Dr. Librado bYarra Work Phone: Plan of Treatment Date Care Activity Detail Author Start: 02-07-2025 ambulatory Facility:[facility] Start: 02-07-2025 ambulatory [facility] Start: 11-30-2023 COVID-19 (2023-2 5 season) COVID-19 (2023-25 season) [facility] Start: 11-30-2023 FLU (#1) FLU (#1) [facility] Start: 01-06-2022 Referral to service [facility] Work Phone: Start: 01-06-2022 End: 01-06-2022 Suicide precautions [facility] Work Phone: Start: 12-27-2002 Hepatitis B (1 of 3 - 19+ 3-dose series) Hepatitis B (1 of 3 - 19+ 3-dose series) [facility] Start: 1999 MenB (1 of 2 - MenB 2-Dose Series Bexsero) MenB (1 of 2 - MenB 2-Dose Series Bexsero) [facility] Start: 12-27-1990 Tetanus Diphtheria a nd Pertussis Vaccines (1 - Tdap) Tetanus Diphtheria and Pertussis Vaccines (1 - Tdap) [facility] Start: 12-27-1984 MMR (1 of 1 - Standa rd series) MMR (1 of 1 - Standard series) [facility] Patient Education [facility] Work Phone: Patient referral [facility] Work Phone: End: 06-16-2024 Quantiferon TB Gold [facility] Work Phone: Comment on above: For lab collect this frequency defaults to the next routine lab draw time. Routine times: 0600; 1100; 1400; 1900; 2200 for 1 Occurrences starting 06/16/2024 until 06/16/2024 Immunizations Immunization Date Immunization Notes Care Provider Fa [facility] 10-11-2021 measles, mumps and rubella virus vaccine Dr. Librado Ybarra Work Phone: [facility] Work Phone: 08-30-2021 measles, mumps and rubella virus vaccine Dr. Librado Ybarra Work Phone: [facility] Work Phone: 07-27-2020 Covid (Pfizer) Dr. Librado knox Work Phone: [facility] Work Phone: 07-02-2020 Covid (Pfizer) Dr. Librado knox Work Phone: [facility] Work Phone: 02-16-2020 influenza, seasonal, injectable Dr. Librado Ybarra Work Phone: [facility] Work Phone: 09-06-2019 tetanus toxoid, redu mukul diphtheria toxoid, and acellular pertussis vaccine, adsorbed [facility] Work Phone: 12-24-2018 influenza, seasonal, injectable [facility] Work Phone: 04-01-2018 tetanus toxoid, redu mukul diphtheria toxoid, and acellular pertussis vaccine, adsorbed [facility] Work Phone: 01-12-2018 influenza, seasonal, injectable [facility] Work Phone: 02-06-2017 influenza, seasonal, injectable [facility] Work Phone: 02-15-2016 influenza, seasonal, injectable [facility] Work Phone: 12-29-2014 influenza, seasonal, injectable [facility] Work Phone: 12-29-2013 influenza, seasonal, injectable [facility] Work Phone: 03-08-2013 Influenza virus vaccine [facility] Work Phone: 03-08-2013 tetanus toxoid, redu mukul diphtheria toxoid, and acellular pertussis vaccine, adsorbed [facility] Work Phone: 11-19-1996 measles, mumps and rubella virus vaccine Dr. Librado Ybarra Work Phone: [facility] Work Phone: Payers Date Payer Category Payer Unknown [employer] [id number] 2023 Self-pay [id number] 2023 Unknown [id number] 2016 Unknown [id number] 1983 Unknown [id number] 2.16.840.1.280585.3.579.2.651 1983 Unknown [id number] 2.16.840.1.656457.3.579.2.651 1983 Unknown [id number] .0.1.895855.3.579.2.651 1983 Unknown [id number] .840.1.440227.3.579.2.479 Unknown [id number] Unknown [id number] Unknown [id number] Unknown [id number] Unknown [facility] P[employer]AGE [employer] 0 [id number] Unknown [id number] Unknown [id number] 05.16.830.1.669490.3.579.2.462 Unknown [id number] 05.16.830.1.014073.3.579.2.462 Unknown [id number] 05.16.830.1.743541.3.579.2.462 Unknown [id number] 840.1.028928.3.579.2.462 Unknown [id number] 05.16.830.1.093617.3.579.2.462 Unknown [id number] 840.1.781239.3.579.2.462 Unknown [id number] 05.16.830.1.505863.3.579.2.462 Unknown [id number] 840.1.465957.3.579.2.462 Unknown [id number] 840.1.230653.3.579.2.462 Unknown [id number] 840.1.556929.3.579.2.462 Unknown [id number] 2.16.840.1.488835.3.579.2.462 Unknown [id number] 2.16.840.1.835694.3.579.2.462 Unknown [id number] 2.16.840.1.756571.3.579.2.462 Unknown [id number] 2.16.840.1.859258.3.579.2.462 Unknown [id number] 2.16.840.1.571189.3.579.2.462 Unknown [id number] 2.16.840.1.619355.3.579.2.462 Unknown [id number] 2.840.1.847694.3.579.2.462 Unknown [id number] 2..840.1.311349.3.579.2.462 Unknown [id number] 2.840.1.137575.3.579.2.462 Unknown [id number] 2.840.1.628866.3.579.2.462 Unknown [id number] 2..840.1.307833.3.579.2.462 Unknown [id number] 2.16.840.1.130198.3.579.2.462 Unknown [id number] 2.840.1.930569.3.579.2.462 Unknown [id number] 2.840.1.797070.3.579.2.462 Unknown [id number] 2.16840.1.889589.3.579.2.462 Unknown [id number] 2.16.840.1.310702.3.579.2.462 Unknown [id number] 2.16.840.1.710585.3.579.2.462 Unknown [id number] 2.16.840.1.166682.3.579.2.462 Unknown [id number] 2.16840.1.008819.3.579.2.462 Unknown [id number] 2.16.840.1.233136.3.579.2.462 Unknown [id number] 2.16.840.1.405779.3.579.2.462 Unknown [id number] 2.16.840.1.706971.3.579.2.462 Unknown [id number] 2.16.840.1.814342.3.579.2.462 Unknown [id number] 2.16.840.1.147067.3.579.2.462 Unknown [id number] 2.16.840.1.587926.3.579.2.462 Unknown [id number] 2.16.840.1.626261.3.579.2.462 Unknown [id number] 2.16.840.1.652726.3.579.2.462 Unknown [id number] 2.16.840.1.777433.3.579.2.462 Unknown [id number] 2.16.840.1.061015.3.579.2.462 Unknown [id number] 2.16.840.1.082005.3.579.2.462 Unknown [id number] 2.16.840.1.625289.3.579.2.462 Unknown [id number] 2.16.840.1.204150.3.579.2.462 Unknown [id number] 2.16.840.1.354910.3.579.2.462 Unknown [id number] 2.16.840.1.157231.3.579.2.462 Unknown [id number] 2.16.840.1.230179.3.579.2.462 Social History Date Type Detail Facility [facility] Work Phone: Start: 06-17-2021 End: 01-06-2022 Tobacco smoking status KYIS Unknown if ever smoked [facility] Work Phone: Start: 09-17-2019 None [facility] Work Phone: Start: 02-15-2019 With Family [facility] Work Phone: Start: 1985 Sex Assigned At Female [facility] Work Phone: Start: 1985 Sex assigned at Not on file [facility] Gender identity Not on file [facility] Goals Date Patient Goal Desired Activity /State Mental Status Date Assessment Result Facility 03-30-2021 Cognitive function Awake;Alert;A ppropriate;Fol lows Commands [facility] Work Phone: Clinical Note 01-28-2025 Note Date & Type Note Facility 01-28-2025 Note [facility] Clinical Note 01-17-2025 Note Date & Type Note Facility 01-17-2025 Note [facility] Clinical Note 05-25-2024 Note Date & Type Note Facility 05-25-2024 Note [facility] Progress note 10-17-2020 Note Date & Type Note Facility 10-17-2020 Note HNO ID: [id number] Author: Diana Cantor Service: ? Author Type: [...] Diana Cantor October 17, 2020 1:37 PM [facility] Clinical Note 10-17-2020 Note Date & Type Note Facility 07-20-2021 Note Patient Outreach (NE TNAV) NINOBEATRICE ([id number]) 1985 F Date Time Provider Department 10/17/20 DIANA DELAROSA (PSS) CHAPARRO During your visit today, we recorded the following information about you: Diana Delarosa Pss 10/17/2020 1:38 PM Signed POPULATION [...] Sent to Practice: NO Navigation Signature: Diana Delarosa [facility] October 17, 2020 1:37 PM Allergies As [...] Reason for Visit: Population Health Navigation Outreach [9770] Prescriptions as of 10/17/2020 - methylPREDNISolone (MEDROL, [...] Encounter Status:Closed by DIANA MEDEL on 10/17/20 [facility] Evaluation note Note Date & Type Note Facility Evaluation note No assessment information availa [facility] Work Phone: Evaluation note Note Date & Type Note Facility Evaluation note Diagnosis Onset Date Acute bronchitis, unspecified acute Encounter for screening labo ratory testing for COVID-19 virus acute [facility] Work Phone: Evaluation note Note Date & Type Note Facility Evaluation note Diagnosis Pre-employment health screening examination- Primary Health examination of defined subpopulation documented in this encounter [facility] Summary Purpose Family History No Family History Records Found Relationship Condition Age at Onset Recorded Date/T naldo mother Hypertension Unknown High blood cholesterol Unknown sister Disorder of thyroid Unknown Malignant neoplasm Unknown Advance Directives No Advanced Directives Records Found Advance Directive Response Recorded Date/ Time Advance Directives No October 25 3:18pm Living Will No June 17, 2021 8:39am Power of Rewind Operator No June 17 8:39am Advance Directive Response Recorded Date/ Time Advance Directives No October 25 3:18pm Living Will No January 06 2:01pm Power of Rewind Operator No January 06 2:01pm Chief Complaint and Reason for Visit [...] section and content) DATE CREATED AUTHOR 05/23/2021 [facility] DATE CREATED AUTHOR AUTHOR'S ORGANIZ ATION 03/11/2024 [facility] DATE CREATED AUTHOR AUTHOR'S ORGANIZ ATION 04/01/2024 [facility] DATE CREATED AUTHOR AUTHOR'S ORGANIZ ATION 06/12/2024 [facility] DATE CREATED AUTHOR AUTHOR'S ORGANIZ ATION 06/22/2024 [facility] DATE CREATED AUTHOR AUTHOR'S ORGANIZ ATION 02/03/2025 [facility] FOR RECORDS PERTAINING TO PATIENTS WHO ARE [...] BE BASED ON THE PRIMARY CLINICAL RECORDS. [employer] provides no warranty or guarantee of the accuracy or completeness of information in this document.
--- NOTE | 2025-02-05 20:17 | CT_ITS ---
PROCEDURE: CT ABDOMEN/PELVIS W IV CONT ONLY 02/05/2025 REASON FOR EXAM: ABDOMINAL PAIN WITH KNOWN PREVIOUS ABSCESS TECHNIQUE: Procedure Code: [id number] Modality: CT Procedure: ABDOMEN/PELVIS W IV CONT ONLY Coronal and Sagittal reconstruction series were provided. CONTRAST: Isovue 370 VOLUME: 89 mL One or more dose reduction techniques were used (e.g., Automated exposure control, adjustment of the mA and/or kV according to patient size, use of iterative reconstruction technique. RADIATION DOSE SUMMARY: DLP: 1173.68 mGycm COMPARISON: 01/28/2025 FINDINGS: Lung bases: Trace bibasilar pleural effusions and mild dependent atelectasis. Liver: New small marginally enhancing hypodense fluid collection at the inferior aspect of the right hepatic lobe, measuring 2.5 x 2.2 x 1.6 cm (AP, TV, CC) which has surrounding fat infiltration/edema, which may be a small subcapsular hepatic abscess. This collection is just above the distal tip of the lower abdominopelvic surgical drainage catheter. Gallbladder: Surgically absent. Spleen: Unremarkable. Pancreas: Unremarkable. Adrenals: Unremarkable. Kidneys: Unremarkable. No hydronephrosis. Bladder: Underdistended, grossly unremarkable. Reproductive Organs: Status post hysterectomy. Interval placement of a lower left transabdominal approach surgical drainage catheter, with tip terminating in the right hemiabdomen just inferior to the right hepatic lobe. The majority of the dominant abscess collection in the central pelvis has been decompressed, although there is residual loculated appearing fluid/abscess collections in the lower left hemipelvis with internal gas, which are slightly more prominent since prior exam and currently measure roughly 8.9 x 4.3 cm in axial plane. Otherwise similar diffuse lower abdominopelvic postoperative and/or infectious/inflammatory fat stranding/edema. Bowel: No evidence of obstruction. No discrete active inflammatory process, although there is fluid throughout the colon suggesting diarrhea. Status post appendectomy. Lymph nodes: Increased number of shotty subcentimeter mesenteric and retroperitoneal lymph nodes, presumably reactive. Vasculature: Normal caliber abdominal aorta and IVC. Bones: Minimal degenerative changes of the spine. CT/Abdomen/Pelvis W IV Cont ONLY IMPRESSION: Interval decompression of the dominant postoperative fluid/abscess collection i n the central pelvis status post surgical drainage catheter placement. There remains a loculated fluid/abscess collection with in ternal gas in the left hemipelvis, which is more prominent from prior exam. New small probable subcapsular perihepatic abscess at the inferior tip of the r ight hepatic lobe, which is nearby the distal tip of the surgical drainage catheter. Generalized fat stranding/edema in the lowe r abdomen/pelvis. Reading Location: [id number]
[2025-02-05] MEDS: 0.9% Normal Saline (1000mL) 1,000 ML 999 ML IV (20:38)
[2025-02-05 20:42] VITALS: BP 131/86; PULSE 81; RESP 20; O2SAT 97
[2025-02-05 20:44] LABS: Hematocrit 28.3 % (37-47); Hemoglobin 9.6 g/dL (12.0-15.0); Immature Granulocytes Count 0.480 X10^3/uL (0.0-0.0); Mean Corp Hgb Conc 33.9 g/dL (32-36); Mean Corpuscular Volume 87.3 fL (81-99); Mean Platelet Vol. 9.7 fl (6.2-12.0); NRBC Flagged by Analyzer 0 % (0-5); Platelet Count 445 K/mm3 (150-450); RBC Distribution Width CV 14.0 % (11.6-14.6); RBC Distribution Width SD 42.9 fl (35.1-43.9); Red Blood Count 3.24 M/mm3 (4.2-5.4); White Blood Count 10.8 K/mm3 (4.4-11.0)
[2025-02-05 20:45] VITALS: BP 131/68; PULSE 78; RESP 21; TEMP 37.3; O2SAT 98
[2025-02-05 20:59] LABS: Color, Urine Yellow (Yellow); Glucose, Dipstick Normal (Normal); Ketone-Dipstick Negative (Negative); Leukocyte Esterase-Dipstick Negative /ul (Negative); Nitrite-Dipstick Negative (Negative); Occult Blood-Urine 10 /ul (Negative); Protein-Dipstick 30 mg/dl (Negative); Specific Gravity, Urine 1.010 (1.002-1.030); Urine Bilirubin Dipstick Negative (Negative)
[2025-02-05 21:07] LABS: Mucous, Urine 1+ /hpf (<or=2+); Red Blood Cells-Urine 0-5 SEEN /hpf (0-5); Squamous Epithelial Cells - UA 0-5 SEEN /hpf (5-10)
[2025-02-05] MEDS: DiphenhydrAMINE 50 MG/ML Syringe 25 MG IV (21:25)
[2025-02-05 21:29] LABS: AST(SGOT) 25 U/L (<=31); Alanine Aminotransfer ALT/SGPT 37 U/L (<=34); Albumin, Serum 3.6 g/dL (3.5-5.0); Alkaline Phosphatase 79 U/L (35-104); Anion Gap 11 (5-15); BUN 10 mg/dL (4-19); BUN/Creat Ratio 19.5 RATIO (10-20); Calcium,Total 9.0 mg/dL (7.6-11.0); Carbon Dioxide 25.3 mmol/L (21.0-32.0); Chloride 100 mmol/L (98-108); Estimated Creatinine Clearance 156.55 ml/min (50-250); Globulin 3.2 g/dL (2.2-4.2); Glucose 103 mg/dL (70-99); Lipase 41 U/L (13-75); Potassium 3.3 mmol/L (3.3-5.1)
--- NOTE | 2025-02-05 21:30 | EX.ED.DYSGE1 ---
HPI History of Present Illness Chief Complaint: Abd Pain Narrative Narrative: Chief complaint and HPI: 39-year-old female with past medical history of hysterectomy with abscess and HARMEET drain presents for evaluation of abdominal pain. History taken by patient as well as medical record. On chart review, patient had a laparoscopic-assisted vaginal hysterectomy with bilateral salpingectomy with Dr. Beltran. She then returned to the emergency department for abdominal pain in which she was diagnosed with a pelvic abscess. She was admitted to the hospital and had a diagnostic laparoscopy with pelvic abscess drainage by Dr. Beltran on 01/29/2025. Patient was discharged from the hospital on 02/02. Patient states she has been having less drainage out of her HARMEET abdominal drain. She noticed yesterday that it appeared odorous. States today she developed right lower quadrant abdominal pain. Called the [facility] office who recommended the patient be seen in the emergency department with CT abdomen pelvis and culture of the HARMEET drain. She endorses nausea with low-grade temperature. She denies any shortness of breath, chest pain, diarrhea, constipation, dysuria. Review of systems: See HPI Medications: As listed on the chart Allergies: As listed on the chart PFSH: Per chart Vital signs: As listed on the chart. Reviewed. Physical exam: Gen: A&O x3, NAD Head: Normocephalic, atraumatic Eyes: No sclera icterus, conjunctiva clear ENT: Moist mucous membranes CV: RRR, no murmurs Resp: Lungs CTA BL, no w/r/c GI: Abd soft, non-distended, mildly tender to palpation diffusely but mostly in the right lower quadrant, no rebound or rigidity, surgical incisions healing well, HARMEET drain with blood-tinged fluid-no signs of cellulitis Skin: Warm, dry Psych: Cooperative, appropriate mood and affect [facility] Medical History Hyperplasia of endometrium determined by biopsy Frequency of urination Back pain Colonoscopy planned Former smoker History of Holter monitoring Carpal tunnel syndrome Flu-like symptoms Vapes nicotine containing substance CPAP (continuous positive airway pressure) dependence Hypersomnia Major depressive disorder Encounter for screening laboratory testing for COVID-19 virus Acute bronchitis, unspecified Wears contact lenses Wears glasses Depression Anxiety Gastric reflux History of echocardiogram Cardiology follow-up encounter Hx of pilonidal cyst delivery delivered Home Medications Medication Instructions Recorded Last Taken Type Lactobacillus acidophilus 250 500 mmu cells PO DAILY probiotic 05/20/24 01/27/25 22:00 History million cell capsule (Probiotic Acidophilus) cholecalciferol (vitamin D3) 50 50 mcg PO DAILY supplement 05/20/24 01/27/25 22:00 History mcg (2,000 unit) capsule (Vitamin D3) omega 9-xox-pxl-fish oil 1,200 mg 1 cap PO DAILY supplement 05/20/24 01/27/25 22:00 History (144 mg-216 mg) capsule (Fish Oil) cyclobenzaprine 10 mg tablet 10 mg PO TID PRN muscle spasm #30 07/27/24 Unknown Rx tabs omeprazole 40 mg capsule,delayed 40 mg PO BID GERD 90 days #180 caps 08/11/24 01/28/25 10:00 Rx release ondansetron 4 mg disintegrating 4 mg PO Q8H PRN nausea and 09/30/24 01/25/25 Rx tablet vomiting #30 tabs mecobalamin (vitamin B12) 500 mcg 2,500 mcg PO DAILY supplement 10/22/24 01/27/25 22:00 History chewable tablet bupropion HCl 150 mg 24 hr tablet, 150 mg PO QAM depression #90 12/06/24 01/28/25 10:00 Rx extended release TABLETS escitalopram oxalate 10 mg tablet 15 mg (1.5 x 10 mg) PO QHS 12/06/24 01/27/25 22:00 Rx depression 90 days #135 tabs lorazepam 0.5 mg tablet 0.5 mg PO DAILY PRN anxiety #30 12/06/24 01/18/25 22:00 Rx tabs oxycodone-acetaminophen 5 mg-325 1 tab PO Q4H PRN pain 7 days #28 01/27/25 01/28/25 10:00 Rx mg tablet (Percocet) tabs naproxen 500 mg tablet 500 mg PO BID PRN PRN pain 01/28/25 01/28/25 08:00 History clindamycin HCl 300 mg capsule 300 mg PO Q6H 7 days #28 caps 02/02/25 Unknown Rx (Cleocin HCl) naproxen 500 mg tablet 500 mg PO BID PRN PRN Pain #30 tabs 02/02/25 Unknown Rx ondansetron 4 mg disintegrating 4 mg PO Q8H PRN nausea and 02/02/25 Unknown Rx tablet vomiting #30 tabs oxycodone-acetaminophen 5 mg-325 1 tab PO Q4H PRN pain 7 days #28 02/02/25 Unknown Rx mg tablet (Percocet) tabs potassium chloride 20 mEq 20 meq PO BID 2 days #4 tabs 02/02/25 Unknown Rx tablet,extended release (K-Tab) cefdinir 300 mg capsule 300 mg PO BID #20 caps 02/03/25 Unknown Rx Allergy/AdvReac Type Severity Reaction Status Date / Time citalopram hydrobromide Allergy Hives Verified 02/05/25 18:42 (From Celexa) Penicillins (PCN) Allergy Hives Verified 02/05/25 18:42 tetanus immune globulin Allergy Hives Verified 02/05/25 18:42 liraglutide (From Victoza) AdvReac Nausea/Vom/ Verified 02/05/25 18:42 Diarrhea morphine AdvReac Itching Verified 02/05/25 18:42 Family History Mother Hypertension High cholesterol Alcoholism Arthritis Depression Sister Thyroid cancer Depression Colon cancer Arthritis Autoimmune disorder Thyroid disorder Father Alcoholism Anxiety Depression Myocardial infarction Psychiatric care Grandfather Lung cancer Aunt Esophageal cancer Surgical History Status post bilateral salpingectomy S/P laparoscopic assisted vaginal hysterectomy ([facility]) H/O esophagogastroduodenoscopy H/O dilation and curettage History of hysteroscopy Previous section H/O repair of right rotator cuff History of appendectomy Hx of cholecystectomy History of tonsillectomy Social History household members: spouse and children housing: house number of children: 2 current occupational status: employed current occupation: [employer] Childrens pets and animals: Yes pets and animals: dog(s) Smoking Status: Former smoker alcohol intake: current substance use type: does not use what type of physical activity do you participate in: walking and weight training frequency: 3-4 times per week do you feel safe at home: Yes additional social history: Elias EXAM Physical Exam Const Vital Signs: 02/05/25 18:42 02/05/25 20:42 02/05/25 20:45 Temperature 99.6 F H 99.2 F H Temperature Source Oral Oral Pulse Rate 90 81 78 Respiratory Rate 16 20 H 21 H Blood Pressure 148/82 H 131/86 H 131/68 H Blood Pressure Mean 104 101 89 Pulse Ox 98 97 98 Oxygen Delivery Method Room Air Room Air 02/05/25 22:00 02/05/25 23:00 Temperature 98.4 F 98.4 F Temperature Source Oral Oral Pulse Rate 83 77 Respiratory Rate 22 H 16 Blood Pressure 133/81 H 135/72 H Blood Pressure Mean 98 93 Pulse Ox 96 98 Oxygen Delivery Method Room Air Room Air MDM MDM MDM Narrative Medical decision making narrative: 39-year-old female with past medical history of hysterectomy with abscess and HARMEET drain presents for evaluation of abdominal pain. History taken by patient as well as medical record. On chart review, patient had a laparoscopic-assisted vaginal hysterectomy with bilateral salpingectomy with Dr. Beltran. She then returned to the emergency department for abdominal pain in which she was diagnosed with a pelvic abscess. She was admitted to the hospital and had a diagnostic laparoscopy with pelvic abscess drainage by Dr. Beltran on 01/29/2025. Patient was discharged from the hospital on 02/02. Patient states she has been having less drainage out of her HARMEET abdominal drain. She noticed yesterday that it appeared odorous. States today she developed right lower quadrant abdominal pain. Differential diagnosis includes but is not limited to worsening abscess, UTI, appendicitis, colitis, pancreatitis. NS bolus, morphine, Zofran ordered. Will culture HARMEET drain as requested. Laboratory workup ordered with CT abdomen/pelvis. CBC without leukocytosis. Patient has anemia of 9.6 however this is uptrending from previous labs. Platelets unremarkable. CMP relatively unremarkable except for mild ALT transaminitis of 37. Lipase unremarkable. UA negative for UTI. CT abdomen pelvis shows interval decompression of the dominant postoperative abscess in the central pelvis. There is still an abscess collection in the left hemisphere approximately 8 x 9 x 4.3 cm. There is internal gas present. New small probable subscapular. [place] abscess at the inferior tip of the right hepatic lobe approximately 2 cm. Nearby the distal tip of the surgical drain. Generalized fat stranding/edema in the lower abdomen/pelvis. Patient is allergic to penicillins therefore Levaquin and Flagyl ordered. Blood cultures were obtained prior to antibiotics. [facility] was consulted and I spoke with Dr. Bower. She was actually the RELIEF MAP [facility] that talk to the patient over the phone to be seen in the emergency department, not Dr. Bowens. She was updated of the findings. She spoke to her general surgeon Dr. Chavez and everyone felt that the patient would benefit from percutaneous drainage versus another OR. We do not have this capability this weekend and therefore recommended transfer to [facility]. I spoke with the RELIEF MAP MODELER Dr. Moore who accepted admission ER to ER. I spoke with the ER physician as well. Given that we [facility] not have [facility] they requested us to send labs, operative reports, and imaging results. I did speak with the kiln tester who will get these ready for transfer. Patient was updated of all results and confirmed understand the plan. Patient will be transferred. Impression: 1. Pelvic abscesses 2. Recent total hysterectomy with bilateral salpingectomy Lab Data Labs: Laboratory Results - last 24 hr 02/05/25 02/05/25 20:23 20:29 WBC 10.8 RBC 3.24 L Hgb 9.6 L Hct 28.3 L MCV 87.3 MCH 29.6 MCHC 33.9 RDW Std Deviation 42.9 RDW Coeff of Tania 14.0 Plt Count 445 MPV 9.7 Immature Gran % (Auto) 4.400 H Neut % (Auto) 59.4 Lymph % (Auto) 24.0 Hale % (Auto) 6.8 Eos % (Auto) 4.8 Baso % (Auto) 0.6 Absolute Neuts (auto) 6.4 Absolute Lymphs (auto) 2.60 Nucleated RBC % 0 Sodium 136 Potassium 3.3 Chloride 100 Carbon Dioxide 25.3 Anion Gap 11 BUN 10 Creatinine 0.52 L Estim Creat Clear Calc 156.55 Est GFR (MDRD) Non-Af 120 BUN/Creatinine Ratio 19.5 Glucose 103 H Lactic Acid 1.0 Calcium 9.0 Total Bilirubin 0.33 AST 25 ALT 37 H Alkaline Phosphatase 79 Total Protein 6.8 Albumin 3.6 Globulin 3.2 Albumin/Globulin Ratio 1.1 Lipase 41 Urine Color Yellow Urine Clarity Clear Urine pH 7.0 Ur Specific [place] 1.010 Urine Protein 30 H Urine Glucose (UA) Normal Urine Ketones Negative Urine Occult Blood 10 H Urine Nitrite Negative Urine Bilirubin Negative Urine Urobilinogen Normal Ur Leukocyte Esterase Negative Urine RBC 0-5 SEEN Urine WBC 0-5 SEEN Ur Squamous Epith Cells 0-5 SEEN Urine Bacteria 2+ Urine Mucus 1+ Radiography Diagnostic Testing: Clinical Impression(s) from Imaging Studies Abdomen/Pelvis CT 02/05/25 20:17 IMPRESSION: Interval decompression of the dominant postoperative fluid/abscess collection in the central pelvis status post surgical drainage catheter placement. There remains a loculated fluid/abscess collection with internal gas in the left hemipelvis, which is more prominent from prior exam. New small probable subcapsular perihepatic abscess at the inferior tip of the right hepatic lobe, which is nearby the distal tip of the surgical drainage catheter. Generalized fat stranding/edema in the lower abdomen/pelvis. Reading Location: [id number] Discharge Plan Triage Chief Complaint: Abd Pain Other Complaint: Wound Check ED Provider: Mo Enriquez Dx/Rx/DC Orders Prescriptions: No Action mecobalamin (vitamin B12) 500 mcg tablet,chewable 2,500 mcg PO DAILY escitalopram oxalate 10 mg tablet 15 mg PO QHS 90 Days Qty: 135 1RF Rx Instructions: TAKE 1.5 TABLET BY MOUTH ONCE DAILY bupropion HCl 150 mg tablet extended release 24 hr 150 mg PO QAM Qty: 90 1RF lorazepam 0.5 mg tablet 0.5 mg PO DAILY PRN (Reason: anxiety) Qty: 30 1RF oxycodone-acetaminophen [Percocet] 5-325 mg tablet 1 tab PO Q4H PRN (Reason: pain) 7 Days Qty: 28 0RF cefdinir 300 mg capsule 300 mg PO BID Qty: 20 0RF naproxen 500 mg tablet 500 mg PO BID PRN PRN (Reason: pain) clindamycin HCl [Cleocin HCl] 300 mg capsule 300 mg PO Q6H 7 Days Qty: 28 0RF oxycodone-acetaminophen [Percocet] 5-325 mg tablet 1 tab PO Q4H PRN (Reason: pain) 7 Days Qty: 28 0RF ondansetron 4 mg tablet,disintegrating 4 mg PO Q8H PRN (Reason: nausea and vomiting) Qty: 30 0RF naproxen 500 mg tablet 500 mg PO BID PRN PRN (Reason: Pain) Qty: 30 1RF potassium chloride [K-Tab] 20 mEq tablet extended release 20 meq PO BID 2 Days Qty: 4 0RF omega 5-obw-sca-fish oil [Fish Oil] 1,200 (144-216) mg capsule 1 cap PO DAILY Probiotic Acidophilus 250 million cell capsule 500 mmu cells PO DAILY cholecalciferol (vitamin D3) [Vitamin D3] 50 mcg (2,000 unit) capsule 50 mcg PO DAILY cyclobenzaprine 10 mg tablet 10 mg PO TID PRN (Reason: muscle spasm) Qty: 30 2RF omeprazole 40 mg capsule,delayed release(DR/EC) 40 mg PO BID 90 Days Qty: 180 3RF ondansetron 4 mg tablet,disintegrating 4 mg PO Q8H PRN (Reason: nausea and vomiting) Qty: 30 2RF Primary Care Provider: Librado Ybarra Referrals: Librado Ybarra DO [Primary Care Provider, Family Practice] Print Language: Occitan
[2025-02-05 22:00] VITALS: BP 133/81; PULSE 83; RESP 22; TEMP 36.9; O2SAT 96
[2025-02-05 23:00] VITALS: BP 135/72; PULSE 77; RESP 16; TEMP 36.9; O2SAT 98
[2025-02-05] MEDS: metroNIDAZOLE 500 MG/100 ML BAG 100 MG IV (23:01)
[2025-02-06] VITALS: BP 133/66; PULSE 91; RESP 20; TEMP 36.8; O2SAT 93
[2025-02-06] MEDS: levoFLOXacin IV 750 MG/150 ML BAG 100 MG IV (00:10)
[2025-02-06 00:55] VITALS: BP 133/66; PULSE 91; RESP 20; TEMP 36.8; O2SAT 93
== END 2025-02-06 01:07 | disposition short-term general hospital (02) ==
LOC: ED 20:12
PROVIDERS: Emergency Provider Surgery; PCP Family Medicine; Visit Provider Surgery
DX: N73.9 Female pelvic inflammatory disease, unspecified (principal); Z87.891 Personal history of nicotine dependence
CPT/HCPCS: 74177; 80053; 81001; 83605; 83690; 85025; 87040; 87070; 87077; 87205; 96365; 96366; 96367; 96375; 96376; 99285; Q9967; A4216; J2405

== ENCOUNTER → 2025-02-11 | Outpatient (CLI) | payer OTHER, SELFPAY ==
[2025-02-11 14:05] LABS: Hematocrit 32.1 % (37-47); Hemoglobin 10.9 g/dL (12.0-15.0); Immature Granulocytes Count 0.070 X10^3/uL (0.0-0.0); Mean Corp Hgb Conc 34.0 g/dL (32-36); Mean Corpuscular Volume 86.5 fL (81-99); Mean Platelet Vol. 9.7 fl (6.2-12.0); NRBC Flagged by Analyzer 0 % (0-5); Platelet Count 523 K/mm3 (150-450); RBC Distribution Width CV 13.8 % (11.6-14.6); RBC Distribution Width SD 42.7 fl (35.1-43.9); Red Blood Count 3.71 M/mm3 (4.2-5.4); White Blood Count 8.2 K/mm3 (4.4-11.0)
[2025-02-11 14:47] LABS: AST(SGOT) 23 U/L (<=31); Alanine Aminotransfer ALT/SGPT 23 U/L (<=34); Albumin, Serum 4.4 g/dL (3.5-5.0); Alkaline Phosphatase 89 U/L (35-104); Anion Gap 12 (5-15); BUN 10 mg/dL (4-19); BUN/Creat Ratio 15.3 RATIO (10-20); Calcium,Total 10.0 mg/dL (7.6-11.0); Carbon Dioxide 25.3 mmol/L (21.0-32.0); Chloride 99 mmol/L (98-108); Globulin 3.7 g/dL (2.2-4.2); Glucose 104 mg/dL (70-99); Potassium 4.1 mmol/L (3.3-5.1)
== END | disposition home or self-care (01) ==
PROVIDERS: PCP Family Medicine; Visit Provider Obstetrics & Gynecology
DX: Z34.01 Encounter for supervision of normal first pregnancy, first trimester (principal)
CPT/HCPCS: 36415; 80053; 85025